=== PATIENT | male | born 1945 | race Caucasian/White ===

== ENCOUNTER 2016-04-25 14:59 | Inpatient (IN) | payer OTHER ==
[2016-04-25] VITALS (11 sets, daily range): BP systolic 112–153; BP diastolic 71–97; PULSE 87–167; RESP 18–24; TEMP 97.7–98.5; O2SAT 97–99
[~2016-04-25] VITALS: Ht 182.9 cm; Wt 113.8 kg
[~2016-04-25 14:59] MED LIST: ALBU0.086 INH; ALBU2.5I INH; ALBU6.7H INH; FOLI1 PO; LEVO750T33 PO; LISI5 PO; MVI PO; PRED-1 PO; SYMB160A INH; THIA100T PO; TIOT18I INH
--- NOTE | 2016-04-25 15:12 | PD ---
HPI . sob worsening over 4 days Chief Complaint: Respiratory Distress Time Seen by Provider: 15:12 Travel History International Travel<30 days: No Contact w/Intl Traveler<30days: No Traveled to known affect area: No History of Present Illness HPI 71 year-old male with history of hypertension, hepatitis C, reflux, alcoholism here with shortness of breath worsening over the past 4 days. Patient said he has had shortness of breath for over 30 years but has been worsening over the past 4 days. He says he does have some intermittent chills. Unfortunately he has not been to the [facility] clinic in about 1-2 years and has no medications for his nebulizer machine. He called a VAC today as he could barely catch his breath. Per fire rescue patient had atrial fibrillation (hr 170) and was given some Cardizem. He then demonstrated some a flutter. He was given a breathing treatment and solumedrol. Upon arrival he continued in a flutter with a lower rate. At time of examination patient admits to shortness of breath. He tells me he is uncomfortable but denies any pain. He denies any recent illness. He denies fever, nausea, vomiting, chest pain, diaphoresis or any abdominal pain. PFSH Past Medical History Arthritis: Yes Asthma: Yes Heart Rhythm Problems: No Cancer: Yes (TESTICLE, LUNG) High Cholesterol: Yes Chemotherapy: Yes Chest Pain: No Congestive Heart Failure: Yes COPD: Yes Cerebrovascular Accident: No Coronary Artery Disease: No Diabetes: Yes Diminished Hearing: No Endocrine: No Gastrointestinal Disorders: Yes GERD: No Genitourinary: Yes Hepatitis: Yes Hiatal Hernia: No Hypertension: Yes Immune Disorder: No Kidney Stones: No Musculoskeletal: Yes Neurologic: No Psychiatric: No Reproductive: No Respiratory: Yes (COPD) Migraines: Yes Renal Failure: No Seizures: No Sleep Apnea: No Thyroid Disease: No Ulcer: Yes Past Surgical History Abdominal Surgery: Yes (Part of liver removed) Cardiac Surgery: No Ear Surgery: No Endocrine Surgery: No Eye Surgery: No Genitourinary Surgery: Yes (R TESTICLE REMOVED/CA) Gynecologic Surgery: No Neurologic Surgery: No Oral Surgery: No Thoracic Surgery: Yes (RL Lobe removed) Other Surgery: Yes (HAND SX) Social History Alcohol Use: Yes (6-8 BURBON/DAY) Tobacco Use: Yes (1/2) Substance Use: No Allergies-Medications (Allergen,Severity, Reaction): Coded Allergies: No Known Allergies (Verified , 04/25/16) Reported Meds & Prescriptions Reported Meds & Active Scripts Active Prednisolone 5 Mg Tab 5 Mg PO DAILY TAKE SIX TABLETS BY MOUTH DAILY FOR THREE DAYS THEN TAKE FOUR TABLETS BY MOUTH DAILY FOR THREE DAYS THEN TAKE TWO TABLETS BY MOUTH DAILY FOR THREE DAYS. Folate 1 Mg Tab (Folic Acid) 1 Mg Tab 1 Mg PO DAILY Vitamin B1 (Thiamine HCl) 100 Mg Tab 100 Mg PO DAILY Levofloxacin 750 Mg Tab 750 Mg PO DAILY Proventil Ud 0.083% (2.5 Mg/3 Ml) (Albuterol Sulfate) 2.5 Mg/3 Ml Inha 2.5 Mg INH Q4 PRN Proventil Hfa (Albuterol Sulfate) 6.7 Gm Aero 1 Puff INH Q4 * SHAKE WELL BEFORE USE * Spiriva 18 Mcg Oral Inh (Tiotropium [place]) 18 Mcg Inhp 18 Mcg INH DAILY Theragran (Multivitamins) 1 Tab Tab 1 Tab PO DAILY 30 Days Prinivil 5 mg (Lisinopril) 5 Mg Tab 5 Mg PO DAILY 30 Days Symbicort (Budesonide/Formoterol Fumarate) 60 Puff Aero 2 Puff INH Q12 Resp: Albuterol 2.5 Mg/3 Ml Neb (Albuterol Sulfate) 2.5 Mg/3 Ml Nebu 2.5 Mg INH Q4 PRN 30 Days Review of Systems General / Constitutional: No: Fever Eyes: No: Visual changes HENT: No: Headaches Cardiovascular: No: Chest Pain or Discomfort Respiratory: Positive: Shortness of Breath Gastrointestinal: No: Abdominal Pain Genitourinary: No: Dysuria Musculoskeletal: No: Pain Skin: No Rash Neurologic: No: Weakness Psychiatric: No: Depression Endocrine: No: Polydipsia Hematologic/Lymphatic: No: Easy Bruising Physical Exam Narrative GENERAL: AAO x 3, no acute distress, Well-nourished, well-developed patient. SKIN: Warm and dry. No visible rashes or bruising. HEAD: Normocephalic and atraumatic. EYES: No scleral icterus. No injection or drainage. EOM intact, PERRLA ENT: No nasal drainage noted. Mucous membranes pink. Airway patent. NECK: Supple, trachea midline. No JVD. CARDIOVASCULAR: Regular rate and rhythm without murmurs, gallops, or rubs. RESPIRATORY: Breath sounds equally diminished bilaterally. Expiratory wheezes throughout. GASTROINTESTINAL: Abdomen soft, mild RUQ tenderness to palpation. EXTREMITIES: No cyanosis or edema. BACK: Nontender without obvious deformity. No CVA tenderness. PSYCH: AAO x 3, normal affect. Data Data Last Documented VS Vital Signs Date Time Temp Pulse Resp B/P Pulse Ox O2 Delivery O2 Flow Rate FiO2 04/25/16 15:34 99 Nasal Cannula 2.00 04/25/16 15:11 96 18 04/25/16 15:03 98.5 114/71 Orders Electrocardiogram (04/25/16 ) Basic Metabolic Panel (Bmp) (04/25/16 15:20) Ckmb (Isoenzyme) Profile (04/25/16 15:20) Complete Blood Count With Diff (04/25/16 15:20) Magnesium (Mg) (04/25/16 15:20) Prothrombin Time / Inr (Pt) (04/25/16 15:20) Act Partial Throm Time (Ptt) (04/25/16 15:20) Troponin I (04/25/16 15:20) Chest, Single Ap (04/25/16 15:20) Ecg Monitoring (04/25/16 15:20) Bilateral Bp Monitoring (04/25/16 15:20) Iv Access Insert/Monitor (04/25/16 15:20) Oximetry (04/25/16 15:20) Oxygen Administration (04/25/16 15:20) Sodium Chloride 0.9% Flush (Ns Flush) (04/25/16 15:30) Albuterol-Ipratropium Neb (Duoneb Neb) (04/25/16 15:30) Diltiazem Inj (Cardizem Inj) (04/25/16 16:00) Phenyleph/Ns 1000 Mcg/10ml Syr (Neosynep (04/25/16 16:00) Admit Order (Ed Use Only) (04/25/16 16:57) Labs Laboratory Tests Test 04/25/16 15:30 White Blood Count 11.9 TH/MM3 Red Blood Count 5.36 MIL/MM3 Hemoglobin 17.1 GM/DL Hematocrit 48.8 % Mean Corpuscular Volume 91.1 FL Mean Corpuscular Hemoglobin 31.9 PG Mean Corpuscular Hemoglobin 35.0 % Concent Red Cell Distribution Width 14.6 % Platelet Count 283 TH/MM3 Mean Platelet Volume 6.6 FL Neutrophils (%) (Auto) 64.6 % Lymphocytes (%) (Auto) 21.6 % Monocytes (%) (Auto) 11.4 % Eosinophils (%) (Auto) 1.2 % Basophils (%) (Auto) 1.2 % Neutrophils # (Auto) 7.7 TH/MM3 Lymphocytes # (Auto) 2.6 TH/MM3 Monocytes # (Auto) 1.4 TH/MM3 Eosinophils # (Auto) 0.1 TH/MM3 Basophils # (Auto) 0.1 TH/MM3 CBC Comment DIFF FINAL Differential Comment Prothrombin Time 13.8 SEC Prothromb Time International 1.2 RATIO Ratio Activated Partial 29.2 SEC Thromboplast Time Sodium Level 128 MEQ/L Potassium Level 3.1 MEQ/L Chloride Level 85 MEQ/L Carbon Dioxide Level 30.8 MEQ/L Anion Gap 12 MEQ/L Blood Urea Nitrogen 14 MG/DL Creatinine 1.19 MG/DL Estimat Glomerular Filtration 60 ML/MIN Rate Random Glucose 114 MG/DL Calcium Level 9.1 MG/DL Magnesium Level 2.0 MG/DL Total Creatine Kinase 86 U/L Troponin I 0.02 NG/ML MDM Medical Decision Making Medical Screen Exam Complete: Yes Emergency Medical Condition: Yes Medical Record Reviewed: Yes Differential Diagnosis new onset a fib, COPD exacerbation, PNA, Narrative Course 71 year-old male with history of hypertension, hepatitis C, reflux, alcoholism here with shortness of breath worsening over the past 4 days. Patient said he has had shortness of breath for over 30 years but has been worsening over the past 4 days. He says he does have some intermittent chills. Unfortunately he has not been to the [facility] clinic in about 1-2 years and has no medications for his nebulizer machine. He called a VAC today as he could barely catch his breath. Per fire rescue patient had atrial fibrillation (hr 170) and was given some Cardizem. He then demonstrated some a flutter. He was given a breathing treatment and solumedrol. Upon arrival he continued in a flutter with a lower rate. At time of examination patient admits to shortness of breath. He tells me he is uncomfortable but denies any pain. He denies any recent illness. He denies fever, nausea, vomiting, chest pain, diaphoresis or any abdominal pain. Patient seen and examined. Case discussed with Dr Beth. Labs, cxr, ekg ordered. Cardizem 20mg IV given fluid given as well 1653 patient stable Hyponatremic and low albumin: likely due to etoh abuse CXR with COPD changes Recommend admission due to afib/flutter and COPD exacerbation discussed with patient Patient verbalized understanding of instructions, questions were answered, and thanked me for their care. 1657: discussed personally with Dr. Delgado, admit to [facility] Diagnosis Primary Impression: New onset a-fib Additional Impression: COPD exacerbation Admitting Information Admitting Physician Requests: Admit Condition: Stable Ana Goodman Apr 25, 2016 15:12
[2016-04-25] MEDS ORDERED: SODIUM CHLORIDE 0.9% FLUSH 5 ML FLUSH IVF PRN (15:30)
[2016-04-25] MEDS: RESP: ALBUTEROL 2.5 MG/IPRATROPIUM 0.5 MG NEB (SCH) INH (15:30)
[2016-04-25 15:52] LABS: AUTOMATED NEUTROPHIL # 7.7 TH/MM3 (1.8-7.7); BASOPHIL # 0.1 TH/MM3 (0-0.2); BASOPHIL % 1.2 % (0.0-2.0); EOSINOPHIL # 0.1 TH/MM3 (0-0.4); EOSINOPHIL % 1.2 % (0.0-4.0); HEMATOCRIT 48.8 % (39.0-51.0); HEMO FLAGS DIFF FINAL; LYMPH % 21.6 % (9.0-44.0); LYMPHOCYTE # 2.6 TH/MM3 (1.0-4.8); MEAN CELL VOLUME 91.1 FL (80.0-100.0); MEAN CORPUSCULAR HEMOGLOBIN 31.9 PG (27.0-34.0); MONO % 11.4 % (0.0-8.0); NEUT % 64.6 % (16.0-70.0); PLATELET COUNT 283 TH/MM3 (150-450); RED BLOOD COUNT 5.36 MIL/MM3 (4.50-5.90); RED CELL DISTRIBUTION WIDTH 14.6 % (11.6-17.2); WHITE BLOOD COUNT 11.9 TH/MM3 (4.0-11.0)
[2016-04-25] MEDS ORDERED: DILTIAZEM HCL 25 MG/5 ML VIAL IV ONE (16:00)
[2016-04-25] MEDS ORDERED: PHENYLEPH/NS 1000 MCG/10 ML SYR IV ONE (16:00)
[2016-04-25 16:04] LABS: APTT (PATIENT) 29.2 SEC (24.3-30.1); INTERNATIONAL NORMALIZED RATIO 1.2 RATIO; PROTHROMBIN TIME - PATIENT 13.8 SEC (9.8-11.6)
--- NOTE | 2016-04-25 16:05 | RADRPT ---
EXAM DATE/TIME: 04/25/2016 15:37 [facility] COMPARISON: CHEST PA & LAT, June 12, 2014, 9:18. CHEST SINGLE AP, August 31, 2014, 16:43. INDICATIONS : Patient has been short of breath and it has progressively gotten worse over the last three days. MEDICAL HISTORY : None. SURGICAL HISTORY : None. ENCOUNTER: Initial ACUITY: 3 days PAIN SCORE: 0/10 LOCATION: chest FINDINGS: 2 supine frontal views of the abdomen demonstrate a normal-sized cardiac silhouette. There is elevati on the right hemidiaphragm. Lucency in the upper lung zones remains present. No effusion, consolidati on, or pneumothorax is visualized. The bones and soft tissues demonstrate no acute finding. CONCLUSION: Stable chest x-ray without an acute finding identified. Background lung changes are suggestive of obs tructive airways disease/emphysema. Arash Chong MD on April 25, 2016 at 16:02 Board Certified Radiologist. This report was verified electronically.
[2016-04-25 16:16] LABS: BICARBONATE 30.8 MEQ/L (21.0-32.0); POTASSIUM 3.1 MEQ/L (3.5-5.1)
[2016-04-25] MEDS ORDERED: SENNOSIDES 8.6 MG TAB PO PRN (17:15)
[2016-04-25] MEDS ORDERED: ONDANSETRON HCL 4 MG/2 ML VIAL IVP PRN (17:15)
[2016-04-25] MEDS ORDERED: DILTIAZEM INJ 125 MG in SODIUM CHLORIDE 0.9% INJ 100 ML IV SCH ×2 (17:15→21:30)
[2016-04-25] MEDS ORDERED: PROCHLORPERAZINE 25 MG SUPP PR PRN (17:15)
[2016-04-25] MEDS ORDERED: BISACODYL 10 MG SUPP PR PRN (17:15)
[2016-04-25] MEDS ORDERED: SODIUM CHLORIDE 0.9% FLUSH 5 ML FLUSH IV FLUSH PRN (17:30)
[2016-04-25] MEDS ORDERED: LORazepam 2 MG TAB PO PRN (17:30)
[2016-04-25] MEDS ORDERED: FLUMAZENIL 0.5 MG/5 ML VIAL IV PUSH PRN (17:30)
[2016-04-25] MEDS ORDERED: LORazepam 2 MG/ML VIAL IV PUSH PRN ×3 (17:30)
[2016-04-25] MEDS ORDERED: MAGNESIUM OXIDE 400 MG TAB PO ONE (17:45)
--- NOTE | 2016-04-25 18:45 | HHI.HP ---
[facility] Service [facility] Primary Care Physician [facility] Admission Diagnosis NEW ONSET AFIB/FLUTTER Diagnoses: Chief Complaint: shortness of breath Travel History International Travel<30 Days: No Contact w/Intl Traveler <30 Da: No Traveled to Known Affected Are: No History of Present Illness 71 year-old male with history of hypertension, hepatitis C, GERD, diabetes, alcoholism here with shortness of breath worsening over the past 4 days. Patient said he has had shortness of breath for over 30 years but has been worsening over the past 4 days. He says he does have some intermittent chills. Unfortunately he has not been to the [facility] clinic in about 1-2 years and has no medications for his nebulizer machine. He called a VAC today as he could barely catch his breath. Per fire rescue patient had atrial fibrillation (HR 170) and was given some Cardizem. He then was noted with Skinny ramirez. He was given a breathing treatment and solumedrol. Upon arrival he continued in a flutter with a lower rate. At time of examination patient admits to shortness of breath. Says he feels uncomfortable but denies any chest pain. Says he feels palpitations. He denies any recent illness. He denies fever, nausea, vomiting, chest pain, diaphoresis or any abdominal pain. No fever or chills. Says he has not taken meds for some time. 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 Has both surgery patient after [place]. Reported Medications Reported Meds & Active Scripts Active Prednisolone 5 Mg Tab 5 Mg PO DAILY TAKE SIX TABLETS BY MOUTH DAILY FOR THREE DAYS THEN TAKE FOUR TABLETS BY MOUTH DAILY FOR THREE DAYS THEN TAKE TWO TABLETS BY MOUTH DAILY FOR THREE DAYS. Folate 1 Mg Tab (Folic Acid) 1 Mg Tab 1 Mg PO DAILY Vitamin B1 (Thiamine HCl) 100 Mg Tab 100 Mg PO DAILY Levofloxacin 750 Mg Tab 750 Mg PO DAILY Proventil Ud 0.083% (2.5 Mg/3 Ml) (Albuterol Sulfate) 2.5 Mg/3 Ml Inha 2.5 Mg INH Q4 PRN Proventil Hfa (Albuterol Sulfate) 6.7 Gm Aero 1 Puff INH Q4 * SHAKE WELL BEFORE USE * Spiriva 18 Mcg Oral Inh (Tiotropium [place]) 18 Mcg Inhp 18 Mcg INH DAILY Theragran (Multivitamins) 1 Tab Tab 1 Tab PO DAILY 30 Days Prinivil 5 mg (Lisinopril) 5 Mg Tab 5 Mg PO DAILY 30 Days Symbicort (Budesonide/Formoterol Fumarate) 60 Puff Aero 2 Puff INH Q12 Resp: Albuterol 2.5 Mg/3 Ml Neb (Albuterol Sulfate) 2.5 Mg/3 Ml Nebu 2.5 Mg INH Q4 PRN 30 Days Allergies: Coded Allergies: No Known Allergies (Verified , 04/25/16) Family History Sister has COPD Mother diabetes, stomach cancer Father diabetes hypertension at the age of 86 Social History Started Smoking at the age of 9. In 1991 smokes be packs per day, down 8 years ago and currently is smoking 7 cigarettes a Drinking daily 5 beers daily Medicine illicit drug use Physical Exam Vital Signs Vital Signs Date Time Temp Pulse Resp B/P Pulse Ox O2 Delivery O2 Flow Rate FiO2 04/25/16 18:10 98 Nasal Cannula 2 04/25/16 18:10 98 Nasal Cannula 2 04/25/16 18:00 114 20 112/84 97 Nasal Cannula 2 04/25/16 17:00 90 18 112/76 98 Nasal Cannula 2 04/25/16 15:34 99 Nasal Cannula 2.00 04/25/16 15:11 96 18 96 Room Air 04/25/16 15:03 98.5 87 18 114/71 98 Physical Exam GENERAL: This is a well-nourished, well-developed patient, with some sob. SKIN: No rashes, ecchymoses or lesions. Cool and dry. HEAD: Atraumatic. Normocephalic. No temporal or scalp tenderness. EYES: Pupils equal round and reactive. Extraocular motions intact. No scleral icterus. No injection or drainage. ENT: Nose without bleeding, purulent drainage or septal hematoma. Throat without erythema, tonsillar hypertrophy or exudate. Uvula midline. Airway patent. NECK: Trachea midline. No JVD or lymphadenopathy. Supple, nontender, no meningeal signs. CARDIOVASCULAR: Irregularly irregular rhythm. No murmurs, gallops, or rubs. RESPIRATORY: Decreased breath sounds. Scattered wheezing. GASTROINTESTINAL: Abdomen soft, non-tender, nondistended. No hepato-splenomegaly , or palpable masses. No guarding. MUSCULOSKELETAL: Extremities without clubbing, cyanosis, or edema. No joint tenderness, effusion, or edema noted. No calf tenderness. Negative Homans sign bilaterally. NEUROLOGICAL: Awake and alert. Cranial nerves II through XII intact. Motor and sensory grossly within normal limits. Five out of 5 muscle strength in all muscle groups. Normal speech. Laboratory Laboratory Tests Test 04/25/16 15:30 White Blood Count 11.9 Red Blood Count 5.36 Hemoglobin 17.1 Hematocrit 48.8 Mean Corpuscular Volume 91.1 Mean Corpuscular Hemoglobin 31.9 Mean Corpuscular Hemoglobin 35.0 Concent Red Cell Distribution Width 14.6 Platelet Count 283 Mean Platelet Volume 6.6 Neutrophils (%) (Auto) 64.6 Lymphocytes (%) (Auto) 21.6 Monocytes (%) (Auto) 11.4 Eosinophils (%) (Auto) 1.2 Basophils (%) (Auto) 1.2 Neutrophils # (Auto) 7.7 Lymphocytes # (Auto) 2.6 Monocytes # (Auto) 1.4 Eosinophils # (Auto) 0.1 Basophils # (Auto) 0.1 CBC Comment DIFF FINAL Differential Comment Prothrombin Time 13.8 Prothromb Time International 1.2 Ratio Activated Partial 29.2 Thromboplast Time Sodium Level 128 Potassium Level 3.1 Chloride Level 85 Carbon Dioxide Level 30.8 Anion Gap 12 Blood Urea Nitrogen 14 Creatinine 1.19 Estimat Glomerular Filtration 60 Rate Random Glucose 114 Calcium Level 9.1 Magnesium Level 2.0 Total Creatine Kinase 86 Troponin I 0.02 Result Diagram: 04/25/16 1530 04/25/16 1530 Imaging Last Impressions Chest X-Ray 04/25/16 1520 Signed Impressions: Service Date/Time: April 15:37 - CONCLUSION: Stable chest x-ray without an acute finding identified. Background lung changes are suggestive of obstructive airways disease/emphysema. Arash Chong MD Assessment and Plan Assessment and Plan 71 year-old male with history of hypertension, hepatitis C, reflux, alcoholism here with shortness of breath worsening over the past 4 days. New onset Afib/Aflutter COPD exacerbation Acute respiratory failure requiring O2 by nasal canula ETOH use and tobacco use. Counselled. On IVF. Start CIWA protocol. 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 partial liver resection vs biopsy. On IVF. Monitor Na level closely for fast correction. Diabetes mellitis. says he is not taking meds and doesn't follow with doctors. Check A1c. Start ISS, accuchecks Hypokalemia. Replaced. Monitor and replace. In IVF with KCl additive, Also check mag. Keep K > 4 and Mag > 2 as patient with arrhythmia as above Received Cardizem 20mg IV in the ED and also en route another bolus of cardizem Place on cardizem drip. Turn cardizem drip off if HR < 90 sustained. Turn on cardizem drip if HR sustained > 110. Add cardizem PO Monitor on telemetry Start eliquis as patient with HTN, DM Check 2D ECHO Will also check A1c and lipid panel Solumedrol, duonebs scheduled and as need. Taper steroids and duonebs as tolerated. Monitor Monitor VS closely DVT ppx SCD/TEDs, apixaban Code Status full Discussed Condition With Patient, nurse, ED physician Physician Certification 2 Midnight Certification Type: Admission for Inpatient Services Order for Inpatient Services The services are ordered in accordance with Medicare regulations or non- Medicare payer requirements, as applicable. In the case of services not specified as inpatient-only, they are appropriately provided as inpatient services in accordance with the 2-midnight benchmark. Estimated LOS (days): 3 days is the estimated time the patient will need to remain in the hospital, assuming treatment plan goals are met and no additional complications. Post-Hospital Plan: Home Nuha Delgado MD Apr 25, 2016 18:45 Nuha Delgado MD Apr 25, 2016 18:45
--- NOTE | 2016-04-25 18:49 | PD ---
HPI Chief Complaint: Respiratory Distress Time Seen by Provider: 15:10 Travel History International Travel<30 days: No Contact w/Intl Traveler<30days: No Traveled to known affect area: No History of Present Illness HPI This is a 71-year-old male who has a history of alcoholism and COPD who presents to the emergency department with increasing shortness of breath over the past day, constant, severe associated with a productive cough with yellow sputum. With EMS he was found to have a rapid heart rate. He was given 20 mg of IV diltiazem, steroids and serial bronchodilator treatments. His breathing improved somewhat. Patient has been admitted to the hospital multiple times in the setting of COPD exacerbations. PFSH Past Medical History Arthritis: Yes Asthma: Yes Heart Rhythm Problems: No Cancer: Yes (TESTICLE, LUNG) High Cholesterol: Yes Chemotherapy: Yes Chest Pain: No Congestive Heart Failure: Yes COPD: Yes Cerebrovascular Accident: No Coronary Artery Disease: No Diabetes: Yes Patient Takes Glucophage: No Diminished Hearing: No Endocrine: No Gastrointestinal Disorders: Yes GERD: No Genitourinary: Yes Hepatitis: Yes Hiatal Hernia: No Hypertension: Yes Immune Disorder: No Kidney Stones: No Musculoskeletal: Yes Neurologic: No Psychiatric: No Reproductive: No Respiratory: Yes (COPD) Migraines: Yes Renal Failure: No Seizures: No Sleep Apnea: No Thyroid Disease: No Ulcer: Yes Past Surgical History Abdominal Surgery: Yes (Part of liver removed) Cardiac Surgery: No Ear Surgery: No Endocrine Surgery: No Eye Surgery: No Genitourinary Surgery: Yes (R TESTICLE REMOVED/CA) Gynecologic Surgery: No Neurologic Surgery: No Oral Surgery: No Thoracic Surgery: Yes (RL Lobe removed) Other Surgery: Yes (HAND SX) Social History Alcohol Use: Yes (6-8 BURBON/DAY) Tobacco Use: Yes (1/2) Substance Use: No Allergies-Medications (Allergen,Severity, Reaction): Coded Allergies: No Known Allergies (Verified , 04/25/16) Reported Meds & Prescriptions Reported Meds & Active Scripts Active Prednisolone 5 Mg Tab 5 Mg PO DAILY TAKE SIX TABLETS BY MOUTH DAILY FOR THREE DAYS THEN TAKE FOUR TABLETS BY MOUTH DAILY FOR THREE DAYS THEN TAKE TWO TABLETS BY MOUTH DAILY FOR THREE DAYS. Folate 1 Mg Tab (Folic Acid) 1 Mg Tab 1 Mg PO DAILY Vitamin B1 (Thiamine HCl) 100 Mg Tab 100 Mg PO DAILY Levofloxacin 750 Mg Tab 750 Mg PO DAILY Proventil Ud 0.083% (2.5 Mg/3 Ml) (Albuterol Sulfate) 2.5 Mg/3 Ml Inha 2.5 Mg INH Q4 PRN Proventil Hfa (Albuterol Sulfate) 6.7 Gm Aero 1 Puff INH Q4 * SHAKE WELL BEFORE USE * Spiriva 18 Mcg Oral Inh (Tiotropium [place]) 18 Mcg Inhp 18 Mcg INH DAILY Theragran (Multivitamins) 1 Tab Tab 1 Tab PO DAILY 30 Days Prinivil 5 mg (Lisinopril) 5 Mg Tab 5 Mg PO DAILY 30 Days Symbicort (Budesonide/Formoterol Fumarate) 60 Puff Aero 2 Puff INH Q12 Resp: Albuterol 2.5 Mg/3 Ml Neb (Albuterol Sulfate) 2.5 Mg/3 Ml Nebu 2.5 Mg INH Q4 PRN 30 Days Review of Systems ROS Limitations: Clinical Condition Physical Exam Narrative GENERAL: An well-appearing, moderate respiratory distress SKIN: Warm and dry. HEAD: Atraumatic. Normocephalic. EYES: Pupils equal and round. No injection or drainage. ENT: Moist mucous membranes NECK: Trachea midline. CARDIOVASCULAR: Tachycardic, irregularly irregular No murmur appreciated. RESPIRATORY: Diffuse wheezing bilaterally with a prolonged expiratory phase, some accessory muscle use GASTROINTESTINAL: Abdomen soft, non-tender, nondistended. MUSCULOSKELETAL: No obvious deformities. NEUROLOGICAL: Awake and alert. No obvious cranial nerve deficits. Moving all extremities. PSYCHIATRIC: Appropriate mood and affect; insight and judgment normal. Data Data Last Documented VS Vital Signs Date Time Temp Pulse Resp B/P Pulse Ox O2 Delivery O2 Flow Rate FiO2 04/25/16 15:34 99 Nasal Cannula 2.00 04/25/16 15:11 96 18 04/25/16 15:03 98.5 114/71 Orders Electrocardiogram (04/25/16 ) Basic Metabolic Panel (Bmp) (04/25/16 15:20) Ckmb (Isoenzyme) Profile (04/25/16 15:20) Complete Blood Count With Diff (04/25/16 15:20) Magnesium (Mg) (04/25/16 15:20) Prothrombin Time / Inr (Pt) (04/25/16 15:20) Act Partial Throm Time (Ptt) (04/25/16 15:20) Troponin I (04/25/16 15:20) Chest, Single Ap (04/25/16 15:20) Ecg Monitoring (04/25/16 15:20) Bilateral Bp Monitoring (04/25/16 15:20) Iv Access Insert/Monitor (04/25/16 15:20) Oximetry (04/25/16 15:20) Oxygen Administration (04/25/16 15:20) Sodium Chloride 0.9% Flush (Ns Flush) (04/25/16 15:30) Albuterol-Ipratropium Neb (Duoneb Neb) (04/25/16 15:30) Diltiazem Inj (Cardizem Inj) (04/25/16 16:00) Phenyleph/Ns 1000 Mcg/10ml Syr (Neosynep (04/25/16 16:00) Admit Order (Ed Use Only) (04/25/16 16:57) Labs Laboratory Tests Test 04/25/16 15:30 White Blood Count 11.9 TH/MM3 Red Blood Count 5.36 MIL/MM3 Hemoglobin 17.1 GM/DL Hematocrit 48.8 % Mean Corpuscular Volume 91.1 FL Mean Corpuscular Hemoglobin 31.9 PG Mean Corpuscular Hemoglobin 35.0 % Concent Red Cell Distribution Width 14.6 % Platelet Count 283 TH/MM3 Mean Platelet Volume 6.6 FL Neutrophils (%) (Auto) 64.6 % Lymphocytes (%) (Auto) 21.6 % Monocytes (%) (Auto) 11.4 % Eosinophils (%) (Auto) 1.2 % Basophils (%) (Auto) 1.2 % Neutrophils # (Auto) 7.7 TH/MM3 Lymphocytes # (Auto) 2.6 TH/MM3 Monocytes # (Auto) 1.4 TH/MM3 Eosinophils # (Auto) 0.1 TH/MM3 Basophils # (Auto) 0.1 TH/MM3 CBC Comment DIFF FINAL Differential Comment Prothrombin Time 13.8 SEC Prothromb Time International 1.2 RATIO Ratio Activated Partial 29.2 SEC Thromboplast Time Sodium Level 128 MEQ/L Potassium Level 3.1 MEQ/L Chloride Level 85 MEQ/L Carbon Dioxide Level 30.8 MEQ/L Anion Gap 12 MEQ/L Blood Urea Nitrogen 14 MG/DL Creatinine 1.19 MG/DL Estimat Glomerular Filtration 60 ML/MIN Rate Random Glucose 114 MG/DL Calcium Level 9.1 MG/DL Magnesium Level 2.0 MG/DL Total Creatine Kinase 86 U/L Troponin I 0.02 NG/ML MDM Medical Decision Making Medical Screen Exam Complete: Yes Emergency Medical Condition: Yes Interpretation(s) Afebrile, no tachycardia, normotensive Leukocytosis Hyponatremia Hypokalemia Troponin is 0.02 Chest x-ray: No acute findings Differential Diagnosis Atrial fibrillation with RVR, COPD exacerbation, pneumonia, myocardial infarction, congestive heart failure Narrative Course This is a 71-year-old male who presents to the emergency department with increasing difficulty breathing in the setting of a history of COPD and alcoholism. He was placed on a monitor and an IV was established. He had received 20 mg of IV diltiazem en route with EMS. He was given an additional 20 mg of IV diltiazem. His blood pressure was borderline so I ordered which does phenylephrine and kept at the bedside as we gave him his second bolus. It was not necessary and the patient's blood pressure maintained. He was given further bronchodilator treatments. He will be admitted for COPD exacerbation and new onset atrial fibrillation. Critical Care Narrative Aggregate critical care time was 50 minutes. Time to perform other separately billable procedures was not included in the critical care time. My time did not include minutes spent treating any other patients simultaneously or on activities that did not directly contribute to the patient's treatment. The services I provided to this patient were to treat and/or prevent clinically significant deterioration that could result in: Disability, I provided critical care services requiring my management, as noted below: Chart data review, documentation time, medication orders and management, vital sign assessments/reviewing monitor data, ordering and reviewing lab tests, ordering and interpreting/reviewing x-rays and diagnostic studies, care of the patient and discussion of the patient with the admitting physicians. Diagnosis Primary Impression: New onset a-fib Additional Impression: COPD exacerbation Admitting Information Admitting Physician Requests: Admit Condition: Stable Ines Beth MD Apr 25, 2016 18:49
[2016-04-25] MEDS: APIXABAN 5 MG TABLET PO SCH (20:43)
[2016-04-25] MEDS: DILTIAZEM HCL 30 MG TAB PO SCH (20:43)
[2016-04-25] MEDS: LORazepam 2 MG/ML VIAL IV PUSH PRN (20:44)
[2016-04-25] MEDS: SODIUM CHLORIDE 0.9% FLUSH 5 ML FLUSH IV FLUSH SCH (20:47)
[2016-04-25] MEDS: NS + KCL 20 MEQ INJ 1,000 ML IV SCH (20:50)
[2016-04-25] MEDS: methylPREDNISolone SOD SUCC 40 MG/1 ML VIAL IV PUSH SCH (20:54)
[2016-04-25] MEDS: RESP: ALBUTEROL 2.5 MG/IPRATROPIUM 0.5 MG NEB (SCH) NEB (21:25)
[2016-04-25] MEDS ORDERED: DILTIAZEM HCL 25 MG/5 ML VIAL IVP ONE (21:30)
[2016-04-25] MEDS: RESP: ALBUTEROL 2.5 MG/IPRATROPIUM 0.5 MG NEB (PRN) NEB (23:20)
[2016-04-26] VITALS (26 sets, daily range): BP systolic 121–145; BP diastolic 74–93; PULSE 74–121; RESP 20–22; TEMP 97.6–98.5; O2SAT 97–99
[2016-04-26] MEDS: methylPREDNISolone SOD SUCC 40 MG/1 ML VIAL IV PUSH SCH ×4 (01:06→20:47)
[2016-04-26 03:43] LABS: AUTOMATED NEUTROPHIL # 8.4 TH/MM3 (1.8-7.7); BASOPHIL % 0.2 % (0.0-2.0); HEMATOCRIT 47.5 % (39.0-51.0); HEMO FLAGS DIFF FINAL; LYMPH % 5.2 % (9.0-44.0); LYMPHOCYTE # 0.5 TH/MM3 (1.0-4.8); MEAN CELL VOLUME 91.6 FL (80.0-100.0); MEAN CORPUSCULAR HEMOGLOBIN 32.2 PG (27.0-34.0); MEAN CORPUSCULAR HGB CONC 35.1 % (32.0-36.0); MONO % 0.9 % (0.0-8.0); NEUT % 93.7 % (16.0-70.0); PLATELET COUNT 255 TH/MM3 (150-450); RED BLOOD COUNT 5.18 MIL/MM3 (4.50-5.90); RED CELL DISTRIBUTION WIDTH 14.6 % (11.6-17.2)
[2016-04-26 04:15] LABS: ANION GAP 12 MEQ/L (5-15)
[2016-04-26 04:23] LABS: BICARBONATE 28.7 MEQ/L (21.0-32.0); BLOOD UREA NITROGEN 21 MG/DL (7-18); CHLORIDE 89 MEQ/L (98-107); GLOMERULAR FILTRATION RATE 48 ML/MIN (>89); SODIUM (NA) 130 MEQ/L (136-145)
[2016-04-26 04:29] LABS: POTASSIUM 2.9 MEQ/L (3.5-5.1)
[2016-04-26] MEDS ORDERED: POTASSIUM CL 40 MEQ/30 ML LIQ UDC PO ONE (04:45)
[2016-04-26] MEDS: POTASSIUM CHLOR 20 MEQ PREMIX 100 ML IV SCH ×2 (05:08→07:17)
[2016-04-26] MEDS: NS + KCL 20 MEQ INJ 1,000 ML IV SCH ×2 (05:12→16:08)
[2016-04-26] MEDS: RESP: ALBUTEROL 2.5 MG/IPRATROPIUM 0.5 MG NEB (SCH) NEB ×3 (07:49→19:45)
[2016-04-26] MEDS ORDERED: POTASSIUM CHLORIDE 20 MEQ CONTROLLED RELEASE TAB PO ONE (09:30)
[2016-04-26] MEDS: MULTIVITAMINS/MINERALS THERAPEUTIC TAB PO SCH (10:02)
[2016-04-26] MEDS: APIXABAN 5 MG TABLET PO SCH ×2 (10:03→20:47)
[2016-04-26] MEDS: THIAMINE HCL 100 MG TAB PO SCH (10:03)
[2016-04-26] MEDS: FOLIC ACID 1 MG TAB PO SCH (10:03)
[2016-04-26] MEDS: DILTIAZEM HCL 30 MG TAB PO SCH ×2 (10:03→13:00)
[2016-04-26] MEDS: PANTOPRAZOLE SOD 40 MG DELAYED RELEASE TAB PO SCH (10:03)
[2016-04-26] MEDS: MAGNESIUM OXIDE 400 MG TAB PO SCH (10:03)
[2016-04-26] MEDS: SODIUM CHLORIDE 0.9% FLUSH 5 ML FLUSH IV FLUSH SCH ×2 (10:04→20:48)
--- NOTE | 2016-04-26 10:12 | HHI.PR ---
Subjective Remarks Says he is still with sob and some wheezing , however feels improved. Still with palpitations. No fever or chills. No n/v/d/c. K very low at 2.9 , replaced. Patient says he is not eating much . Objective Vitals Vital Signs Date Time Temp Pulse Resp B/P Pulse Ox O2 Delivery O2 Flow Rate FiO2 04/26/16 07:52 99 Nasal Cannula 2.00 04/26/16 06:00 79 04/26/16 05:00 77 04/26/16 04:00 81 04/26/16 03:00 121 04/26/16 03:00 98.3 80 21 145/93 99 04/26/16 02:00 81 04/26/16 01:00 82 04/26/16 00:00 106 04/25/16 23:20 98 Nasal Cannula 2.00 04/25/16 23:00 97.7 112 23 153/85 99 04/25/16 23:00 121 04/25/16 22:00 160 04/25/16 21:00 166 04/25/16 20:00 154 04/25/16 19:00 136 04/25/16 19:00 97.9 167 24 139/97 98 04/25/16 18:10 98 Nasal Cannula 2 04/25/16 18:10 98 Nasal Cannula 2 04/25/16 18:00 114 20 112/84 97 Nasal Cannula 2 04/25/16 17:00 90 18 112/76 98 Nasal Cannula 2 04/25/16 15:34 99 Nasal Cannula 2.00 04/25/16 15:11 96 18 96 Room Air 04/25/16 15:03 98.5 87 18 114/71 98 I/O 04/25/16 04/25/16 04/25/16 04/26/16 04/26/16 04/26/16 07:00 15:00 23:00 07:00 15:00 23:00 Intake Total 1011 ml Output Total 275 ml Balance 736 ml Intake Oral 720 ml IV Total 291 ml Output Urine Total 275 ml Result Diagram: 04/26/16 0329 04/26/16 0329 Imaging Last Impressions Chest X-Ray 04/25/16 1520 Signed Impressions: Service Date/Time: April 15:37 - CONCLUSION: Stable chest x-ray without an acute finding identified. Background lung changes are suggestive of obstructive airways disease/emphysema. Arash Chong MD Objective Remarks GENERAL: This is a well-nourished, well-developed patient, with some sob. SKIN: No rashes, ecchymoses or lesions. Cool and dry. HEAD: Atraumatic. Normocephalic. No temporal or scalp tenderness. EYES: Pupils equal round and reactive. Extraocular motions intact. No scleral icterus. No injection or drainage. ENT: Nose without bleeding, purulent drainage or septal hematoma. Throat without erythema, tonsillar hypertrophy or exudate. Uvula midline. Airway patent. NECK: Trachea midline. No JVD or lymphadenopathy. Supple, nontender, no meningeal signs. CARDIOVASCULAR: Irregularly irregular rhythm. No murmurs, gallops, or rubs. RESPIRATORY: Decreased breath sounds. Scattered wheezing. GASTROINTESTINAL: Abdomen soft, non-tender, nondistended. No hepato-splenomegaly , or palpable masses. No guarding. MUSCULOSKELETAL: Extremities without clubbing, cyanosis, or edema. No joint tenderness, effusion, or edema noted. No calf tenderness. Negative Homans sign bilaterally. NEUROLOGICAL: Awake and alert. Cranial nerves II through XII intact. Motor and sensory grossly within normal limits. Five out of 5 muscle strength in all muscle groups. Normal speech. A/P Assessment and Plan 71 year-old male with history of hypertension, hepatitis C, reflux, alcoholism here with shortness of breath worsening over the past 4 days. New onset Afib/Aflutter COPD exacerbation Acute respiratory failure requiring O2 by nasal canula ETOH use and tobacco use. Counselled. On IVF. Start CIWA protocol. 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 partial liver resection vs biopsy. On IVF. Monitor Na level closely for fast correction. Diabetes mellitis. says he is not taking meds and doesn't follow with doctors. Check A1c. Start ISS, accuchecks Hypokalemia. Replaced. Monitor and replace. In IVF with KCl additive, Also check mag. Keep K > 4 and Mag > 2 as patient with arrhythmia as above. Will add KCL additive to IVF. joe extra K as noted K level of 2.9 ( 04/26) JAROCHO. Will check UA and Kidney US likely cardio- renal syndrom. Monitor kidney function. Received Cardizem 20mg IV in the ED and also en route to the hospital another bolus of cardizem Place on cardizem drip. Turn cardizem drip off if HR < 90 sustained. Turn on cardizem drip if HR sustained > 110. Add cardizem PO . Wean off cardizem drip. Monitor on telemetry Start eliquis as patient with HTN, DM. Check FOBT 2D ECHO pending Check A1c and lipid panel Solumedrol, duonebs scheduled and as need. Taper steroids and duonebs as tolerated. Monitor Monitor VS closely DVT ppx SCD/TEDs, apixaban Code Status full Discussed Condition With Patient, nurse Nuha Delgado MD Apr 26, 2016 10:12
--- NOTE | 2016-04-26 13:26 | RADRPT ---
EXAM DATE/TIME: 04/26/2016 11:04 [facility] COMPARISON: No previous studies available for comparison. INDICATIONS : Increased BUN and creatinine. MEDICAL HISTORY : Congestive heart failure. Hypertension. Arthritis. Syncope. Neck stiffness. COPD. Emphysema. Asthma. Testicular cancer. Lung cancer. Diabetes. Chemotherapy. Hepatitis. SURGICAL HISTORY : Partial liver removal. Right testicle removed. Right hand surgery. Left lung lobectomy. ENCOUNTER: Initial ACUITY: 1 day PAIN SCORE: 0/10 LOCATION: Bilateral flank MEASUREMENTS: RIGHT KIDNEY: 11.2 x 5.6 x 6.5 cm LEFT KIDNEY: 10.3 x 5.5 x 5.1 cm FINDINGS: RIGHT KIDNEY: There is some increased echogenicity of the renal parenchyma. There is some thinning of the renal par enchyma. No hydronephrosis. LEFT KIDNEY: There is increased echogenicity of the renal parenchyma. There is some thinning of the renal parenchy ma. No hydronephrosis. BLADDER: Within normal limits given the degree of distension. CONCLUSION: 1. Increased echogenicity suggestive of chronic medical renal disease. 2. No hydronephrosis. Taco Valdez MD on April 26, 2016 at 13:24 Board Certified Radiologist. This report was verified electronically.
--- NOTE | 2016-04-26 13:52 | MB ---
cc: ETHAN BRADLEY M.D. DATE OF CONSULTATION: 04/26/2016. REASON FOR CONSULTATION: Atrial flutter. HISTORY OF PRESENT ILLNESS: The patient is a 71-year-old white male with a history of hepatitis C, testicular cancer, COPD, hypertension, diabetes who presented to the hospital with increasing shortness of breath. The patient states for the past few days he has had increasing dyspnea with very minimal exertion. In the emergency department, he was found to be in an atrial fibrillation/flutter with a rapid ventricular response and started on intravenous Cardizem. Chronically, he has had pinpoint left-sided chest pains described as "burning" often lasting in a constant fashion throughout the day. The chest pains have no relationship to exertion and are not pleuritic. Since coming into hospital, his dyspnea has improved. He reports occasional paroxysmal nocturnal dyspnea and dependent ankle edema. For the past few months he has noted occasional fluttering palpitations which last a few minutes. He denies dizziness, syncope, near-syncope, fevers. PAST MEDICAL HISTORY: 1. Hepatitis C. 2. 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 3. COPD. 4. Hypertension 5. Diet-controlled diabetes. CARDIAC MEDICATIONS AT HOME: Prinivil 5 mg daily. ALLERGIES: NO KNOWN DRUG ALLERGIES. FAMILY HISTORY: Noncontributory. SOCIAL HISTORY: The patient smokes about half a pack of cigarettes per day. He drinks alcohol fairly heavily on a daily basis. REVIEW OF SYSTEMS: Review of systems as in the history of present illness otherwise negative or noncontributory. He also denies headache, visual changes, unilateral weakness or numbness, abdominal pain, dyspepsia. For the past few months he has noted black stools. PHYSICAL EXAMINATION: VITAL SIGNS: On physical examination his blood pressure IS 138/84 with a pulse of 80, respirations 22. GENERAL: In general he is a well-developed, well-nourished white male in no acute distress. HEAD, EYES, EARS, NOSE, THROAT: On HEENT examination, jugular venous pressure is hard to assess. Carotid pulses are 2+ bilaterally and without bruits. CHEST: Examination of the chest reveals diffuse mild expiratory wheezes. CARDIAC: On cardiac examination, he has a regular rhythm and rate without S3, S4 or murmur. ABDOMEN: On abdominal examination, he has a soft, nontender abdomen. Bowel sounds are present. There is no definite hepatosplenomegaly. EXTREMITIES: Examination of extremities reveals no clubbing, cyanosis or edema. EKGS: EKG shows atrial flutter with variable AV conduction, nonspecific T-wave abnormalities. LABORATORY DATA: Laboratory data includes WBC 9.0, hemoglobin 16.7, platelets 255, potassium 2.9, BUN 21, creatinine 1.46. Troponin less than 0.02, CK 86. INR 1.2. IMAGING STUDIES: Chest x-ray shows no acute disease. IMPRESSION: Newly diagnosed atrial flutter in this 71-year-old white male with a history of hypertension, diabetes, COPD, testicular cancer, hepatitis C, admitted with COPD exacerbation. At this time, monitoring suggests he is back in sinus rhythm or an ectopic atrial rhythm. Repeat EKG is pending. Overall there is no definite evidence for acute coronary syndrome. Cardiac enzymes are negative for myocardial infarction. His chronic chest pains are extremely atypical for myocardial ischemia. Echocardiogram is pending. There is no definite evidence for congestive heart failure. There is also clinically no evidence for pulmonary embolism. The etiology of the atrial dysrhythmia may be his history of hypertension. RECOMMENDATIONS: 1. Agree with the Eliquis although would check his stools for occult blood as he does report black stools for a few months. 2. Will try to stop the intravenous Cardizem and continue oral administration. 3. Await his 2-D echocardiogram. MD SHELDON Edwards/KIRILL /1:16 PM /1:43 PM GABRIEL
[2016-04-26] MEDS: DILTIAZEM-CD 240 MG CAP ER PO SCH (14:14)
[2016-04-26] MEDS: ACETAMINOPHEN 325 MG TAB PO PRN (16:28)
--- NOTE | 2016-04-26 16:38 | EKG ---
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 DOCTOR: Linda Noble Interpretating Date/Time 04/26/2016 16:36:31
[2016-04-26] MEDS: RESP: ALBUTEROL 2.5 MG/IPRATROPIUM 0.5 MG NEB (PRN) NEB (16:41)
--- NOTE | 2016-04-26 19:01 | EC ---
Study Study Date:04/26/2016 STUDY CONCLUSIONS SUMMARY LEFT VENTRICLE: The cavity size was normal. Wall thickness was normal. Systolic function was normal. The estimated ejection fraction was in the range of 50% to 55%. Wall motion was normal; there were no regional wall motion abnormalities. If LV function is below 40, please consider prescribing an ACEI or ARB or document rationale for non-use. PROCEDURE DATA STUDY STATUS: Elective. Procedure: Transthoracic echocardiography. Image quality was poor. Scanning was performed from the parasternal, apical, and subcostal acoustic windows. Study completion: The patient tolerated the procedure well. Transthoracic echocardiography. M-mode, complete 2D, complete spectral Doppler, and color Doppler. Patient status: Inpatient. CARDIAC ANATOMY LEFT VENTRICLE: The cavity size was normal. Wall thickness was normal. Systolic function was normal. The estimated ejection fraction was in the range of 50% to 55%. Wall motion was normal; there were no regional wall motion abnormalities. AORTIC VALVE: Trileaflet; normal thickness leaflets. Doppler: Transvalvular velocity was within the normal range. There was no stenosis. No regurgitation. AORTA: Aortic root: The aortic root was normal in size. MITRAL VALVE: Structurally normal valve. Doppler: Transvalvular velocity was within the normal range. There was no evidence for stenosis. No regurgitation. LEFT ATRIUM: The atrium was normal in size. RIGHT VENTRICLE: The cavity size was normal. Wall thickness was normal. PULMONIC VALVE: Doppler: Transvalvular velocity was within the normal range. There was no evidence for stenosis. No regurgitation. TRICUSPID VALVE: Structurally normal valve. Doppler: Transvalvular velocity was within the normal range. No regurgitation. PULMONARY ARTERY: The main pulmonary artery was normal-sized. Systolic pressure was within the normal range. RIGHT ATRIUM: The atrium was normal in size. PERICARDIUM: There was no pericardial effusion. SYSTEMIC VEINS: Inferior vena cava: The vessel was normal in size. Prepared and signed by Sudheer Menendez [id number]
[2016-04-26] MEDS: LORazepam 1 MG TAB PO PRN (20:55)
[2016-04-26] MEDS: guaiFENesin/DEXTROMETHORPHAN 200 MG/20 MG/10 ML CUP PO PRN (23:58)
[2016-04-27] VITALS (29 sets, daily range): BP systolic 117–159; BP diastolic 68–86; PULSE 69–102; RESP 18–22; TEMP 96–98.3; O2SAT 93–100
[2016-04-27] MEDS: LORazepam 2 MG/ML VIAL IV PUSH PRN (01:50)
[2016-04-27 04:55] LABS: BLOOD, URINE NEG (NEG); COMMENT (UR) CULT NOT INDICATED; CULTURE IF INDICATED CULT NOT INDICATED; GLUCOSE,URINE NEG (NEG); KETONE, URINE NEG (NEG); MUCUS URINE FEW /lpf (OCC); NITRITE,URINE NEG (NEG); PH, URINE 5.5 (5.0-8.5); URINE COLOR LIGHT-YELLOW (YELLW/STRAW)
[2016-04-27 05:17] LABS: AUTOMATED NEUTROPHIL # 19.6 TH/MM3 (1.8-7.7); BASOPHIL % 0.2 % (0.0-2.0); HEMATOCRIT 40.5 % (39.0-51.0); HEMO FLAGS DIFF FINAL; LYMPH % 2.6 % (9.0-44.0); LYMPHOCYTE # 0.5 TH/MM3 (1.0-4.8); MEAN CELL VOLUME 94.3 FL (80.0-100.0); MEAN CORPUSCULAR HEMOGLOBIN 31.8 PG (27.0-34.0); MEAN CORPUSCULAR HGB CONC 33.8 % (32.0-36.0); MONO % 3.1 % (0.0-8.0); NEUT % 94.1 % (16.0-70.0); PLATELET COUNT 219 TH/MM3 (150-450); RED CELL DISTRIBUTION WIDTH 14.8 % (11.6-17.2); WHITE BLOOD COUNT 20.9 TH/MM3 (4.0-11.0)
[2016-04-27 05:42] LABS: BICARBONATE 30.3 MEQ/L (21.0-32.0); MAGNESIUM 2.2 MG/DL (1.5-2.5); POTASSIUM 4.1 MEQ/L (3.5-5.1)
[2016-04-27] MEDS: methylPREDNISolone SOD SUCC 40 MG/1 ML VIAL IV PUSH SCH ×3 (06:00→21:53)
[2016-04-27] MEDS: NS + KCL 20 MEQ INJ 1,000 ML IV SCH ×3 (06:09→22:37)
[2016-04-27] MEDS ORDERED: APIX5TAB PO (07:34)
[2016-04-27] MEDS ORDERED: PRED10PA PO (07:34)
[2016-04-27] MEDS ORDERED: CARD240C6 PO (07:34)
--- NOTE | 2016-04-27 07:34 | HHI.DS ---
Discharge Summary Admission Date Apr 25, 2016 at 16:59 Discharge Date: May 28, 2016 Admitting Diagnosis NEW ONSET AFIB/FLUTTER (1) New onset a-fib ICD Code: I48.91 Diagnosis: Principal (2) Paroxysmal atrial flutter ICD Code: I48.92 Diagnosis: Principal (3) COPD with exacerbation ICD Code: J44.1 Diagnosis: Principal (4) Alcohol abuse ICD Code: F10.10 Diagnosis: Principal (5) Respiratory insufficiency ICD Code: R06.89 Diagnosis: Principal (6) Tobacco abuse ICD Code: Z72.0 Diagnosis: Secondary (7) Hypertension ICD Code: I10 Diagnosis: Secondary Procedures none Brief History - From Admission 71 year-old male with history of hypertension, hepatitis C, GERD, diabetes, alcoholism here with shortness of breath worsening over the past 4 days. Patient said he has had shortness of breath for over 30 years but has been worsening over the past 4 days. He says he does have some intermittent chills. Unfortunately he has not been to the [place] [facility] in about 1-2 years and has no medications for his nebulizer machine. He called a VAC today as he could barely catch his breath. Per fire rescue patient had atrial fibrillation (HR 170) and was given some Cardizem. He then was noted with A. flutter. He was given a breathing treatment and solumedrol. Upon arrival he continued in a flutter with a lower rate. At time of examination patient admits to shortness of breath. Says he feels uncomfortable but denies any chest pain. Says he feels palpitations. He denies any recent illness. He denies fever, nausea, vomiting, chest pain, diaphoresis or any abdominal pain. No fever or chills. Says he has not taken meds for some time. CBC/BMP: 04/27/16 0402 04/27/16 0402 Significant Findings Laboratory Tests Test 04/25/16 04/25/16 04/26/16 04/27/16 15:30 21:35 03:29 04:02 White Blood Count 11.9 TH/MM3 20.9 TH/MM3 (4.0-11.0) (4.0-11.0) Hemoglobin 17.1 GM/DL (13.0-17.0) Mean Platelet Volume 6.6 FL 6.6 FL 6.7 FL (7.0-11.0) (7.0-11.0) (7.0-11.0) Monocytes (%) (Auto) 11.4 % (0.0-8.0) Monocytes # (Auto) 1.4 TH/MM3 (0-0.9) Prothrombin Time 13.8 SEC (9.8-11.6) Sodium Level 128 MEQ/L 130 MEQ/L 134 MEQ/L (136-145) (136-145) (136-145) Potassium Level 3.1 MEQ/L 2.9 MEQ/L (3.5-5.1) (3.5-5.1) Chloride Level 85 MEQ/L 89 MEQ/L 95 MEQ/L (98-107) (98-107) (98-107) Estimat Glomerular Filtration 60 ML/MIN (>89) 48 ML/MIN (>89) 71 ML/MIN (>89) Rate Random Glucose 114 MG/DL 213 MG/DL 180 MG/DL (74-106) (74-106) (74-106) Troponin I LESS THAN 0.02 LESS THAN 0.02 NG/ML NG/ML (0.02-0.05) (0.02-0.05) Neutrophils (%) (Auto) 93.7 % 94.1 % (16.0-70.0) (16.0-70.0) Lymphocytes (%) (Auto) 5.2 % 2.6 % (9.0-44.0) (9.0-44.0) Neutrophils # (Auto) 8.4 TH/MM3 19.6 TH/MM3 (1.8-7.7) (1.8-7.7) Lymphocytes # (Auto) 0.5 TH/MM3 0.5 TH/MM3 (1.0-4.8) (1.0-4.8) Blood Urea Nitrogen 21 MG/DL (7-18) 23 MG/DL (7-18) Creatinine 1.46 MG/DL (0.60-1.30) B-Type Natriuretic Peptide 339 PG/ML (0-100) Red Blood Count 4.30 MIL/MM3 (4.50-5.90) Test 04/27/16 04:18 Urine Mucus FEW /lpf (OCC) Imaging Last Impressions Renal Ultrasound 04/26/16 0000 Signed Impressions: Service Date/Time: Tuesday, April 26, 2016 11:04 - CONCLUSION: 1. Increased echogenicity suggestive of chronic medical renal disease. 2. No hydronephrosis. Taco Valdez MD Chest X-Ray 04/25/16 1520 Signed Impressions: Service Date/Time: April 15:37 - CONCLUSION: Stable chest x-ray without an acute finding identified. Background lung changes are suggestive of obstructive airways disease/emphysema. Arash Chong MD PE at Discharge GENERAL: This is a well-nourished, well-developed patient, with some sob. SKIN: No rashes, ecchymoses or lesions. Cool and dry. HEAD: Atraumatic. Normocephalic. No temporal or scalp tenderness. EYES: Pupils equal round and reactive. Extraocular motions intact. No scleral icterus. No injection or drainage. ENT: Nose without bleeding, purulent drainage or septal hematoma. Throat without erythema, tonsillar hypertrophy or exudate. Uvula midline. Airway patent. NECK: Trachea midline. No JVD or lymphadenopathy. Supple, nontender, no meningeal signs. CARDIOVASCULAR: Irregularly irregular rhythm. No murmurs, gallops, or rubs. RESPIRATORY: Decreased breath sounds. Scattered wheezing. GASTROINTESTINAL: Abdomen soft, non-tender, nondistended. No hepato-splenomegaly , or palpable masses. No guarding. MUSCULOSKELETAL: Extremities without clubbing, cyanosis, or edema. No joint tenderness, effusion, or edema noted. No calf tenderness. Negative Homans sign bilaterally. NEUROLOGICAL: Awake and alert. Cranial nerves II through XII intact. Motor and sensory grossly within normal limits. Five out of 5 muscle strength in all muscle groups. Normal speech. Hospital Course 71 year-old male with history of hypertension, hepatitis C, reflux, alcoholism here with shortness of breath worsening over the past 4 days. New onset Afib/Aflutter Received Cardizem 20mg IV in the ED and also en route to the hospital another bolus of cardizem Place on cardizem drip. Turn cardizem drip off if HR < 90 sustained. Turn on cardizem drip if HR sustained > 110. Add cardizem PO . Wean off cardizem drip. Curently on cardizem PO continue at DC Monitor on telemetry Start eliquis as patient with HTN, DM. Check FOBT 2D ECHO reviewed normal EF A1c at 6 . Lipid panel fairly good. COPD exacerbation Solumedrol, duonebs scheduled and as need. Taper steroids and duonebs as tolerated. Monitor Monitor VS closely Add mucomist, IS, acapella Acute respiratory failure requiring O2 by nasal canula ETOH use. Counselled. On IVF. Start CIWA protocol. Tobacco use. Counselled. Nicotine patch. 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 partial liver resection vs biopsy. On IVF. Monitor Na level closely for fast correction. Diabetes mellitis, diet controlled. says he is not taking meds and doesn't follow with doctors. A1c at 6. Start ISS, accuchecks. Hypokalemia. Replaced. Monitor and replace. In IVF with KCl additive, Also check mag. Keep K > 4 and Mag > 2 as patient with arrhythmia as above. Will add KCL additive to IVF. joe extra K as noted K level of 2.9 ( 04/26) Replaced. Continue to monitor and replace as needed. JAROCHO. Will check UA and Kidney US likely cardio- renal syndrom. Monitor kidney function. Kidney US reviewed changes consistent with CKD. Renal indices improved. Constipation. Laxatives/stool softeners. DVT ppx SCD/TEDs, apixaban Code Status full Discussed Condition With Patient, nurse PT recommends SNF. DC to SNF in stable condition. Patient improved. To follow up as OP with PCP and consultants. Pt Condition on Discharge: Stable Discharge Disposition: Discharge to SNF Discharge Time: > 30 minutes Discharge Instructions DIET: Follow Instructions for: Heart Healthy Diet, Diabetic Diet Activities you can perform: Regular-No Restrictions Follow up Referrals: Cardiology - 2 Weeks with Cam Payne DO PCP Follow-up - 3-5 Days Pulmonology - 1 Week New Medications: Cefuroxime (Ceftin) 250 Mg Tab 250 MG PO BID Infection #14 Ref 0 TAB Dextromethorphan-Guaifenesin (Mucinex DM) 30-600 Mg Tab 1 TAB PO BID PRN CHEST CONGESTION AND/OR COUGH #10 Ref 0 TAB Lactobacillus Acidophilus (Lactinex) 1 Chew 1 TAB CHEW DAILY Nutritional Supplement #15 Ref 0 TAB Lorazepam (Lorazepam) 0.5 Mg Tab 0.5 MG PO BID PRN ANXIETY #10 Ref 0 TAB Nicotine Patch (Nicotine Patch) 21 Mg/24 Hr Patch 21 MG T-DERMAL DAILY Smoking Cessation #30 Ref 0 PATCH Prednisone (21) 10 mg tab Dose Pack (Prednisone (21) 10 mg tab Dose Pack) 10 Mg Pack 10 MG PO DIRECTED Inflammation #1 Ref 0 DSPK Apixaban (Eliquis) 5 Mg Tab 5 MG PO BID Blood Clot Prevention #60 TAB Diltiazem CD 24 HR (Cardizem CD 24 HR) 240 Mg Caper 240 MG PO DAILY a fib #30 CAP Continued Medications: Albuterol Sulfate (Resp: Albuterol 2.5 Mg/3 Ml Neb) 2.5 Mg/3 Ml Nebu 2.5 MG INH Q4 PRN SHORTNESS OF BREATH Days 30 Ref 0 ML Albuterol Sulfate (Proventil Hfa) 6.7 Gm Aero 1 PUFF INH Q4 * SHAKE WELL BEFORE USE * SHORTNESS OF BREATH #1 Ref 0 BOX Albuterol Sulfate (Proventil Ud 0.083% (2.5 Mg/3 Ml)) 2.5 Mg/3 Ml Inha 2.5 MG INH Q4 PRN SOB/WHEEZING #25 Ref 1 BOX Budesonide-Formoterol Fumarate (Symbicort) 60 Puff Aero 2 PUFF INH Q12 copd #1 Ref 0 CONTAINER Folic Acid (Folate 1 Mg Tab) 1 Mg Tab 1 MG PO DAILY alcohol #30 Ref 0 TAB Lisinopril 5 mg (Prinivil 5 mg) 5 Mg Tab 5 MG PO DAILY high blood pressure Days 30 Ref 0 TAB Multivitamins (Theragran) 1 Tab Tab 1 TAB PO DAILY vitamin supplement Days 30 Ref 0 TAB Prednisolone (Prednisolone) 5 Mg Tab 5 MG PO DAILY TAKE SIX TABLETS BY MOUTH DAILY FOR THREE DAYS THEN TAKE FOUR TABLETS BY MOUTH DAILY FOR THREE DAYS THEN TAKE TWO TABLETS BY MOUTH DAILY FOR THREE DAYS. COPD #36 Ref 0 TAB Thiamine HCl (Thiamine HCl) 100 Mg Tab 100 MG PO DAILY alcohol #30 Ref 0 TAB Tiotropium [place] (Spiriva 18 Mcg Oral Inh) 18 Mcg Inhp 18 MCG INH DAILY copd #1 Ref 0 INHALER Discontinued Medications: Levofloxacin (Levofloxacin) 750 Mg Tab 750 MG PO DAILY COPD #5 Ref 0 TAB Nuha Delgado MD Apr 27, 2016 07:34
[2016-04-27] MEDS: RESP: ALBUTEROL 2.5 MG/IPRATROPIUM 0.5 MG NEB (SCH) NEB ×3 (07:35→19:24)
[2016-04-27] MEDS ORDERED: LACTCHW3 CHEW (07:37)
[2016-04-27] MEDS ORDERED: CEFT250T8 PO (07:37)
[2016-04-27] MEDS ORDERED: MUCI30TA2 PO (07:40)
[2016-04-27] MEDS: PANTOPRAZOLE SOD 40 MG DELAYED RELEASE TAB PO SCH (08:32)
[2016-04-27] MEDS: THIAMINE HCL 100 MG TAB PO SCH (08:32)
[2016-04-27] MEDS: DILTIAZEM-CD 240 MG CAP ER PO SCH (08:32)
[2016-04-27] MEDS: MAGNESIUM OXIDE 400 MG TAB PO SCH (08:32)
[2016-04-27] MEDS: MULTIVITAMINS/MINERALS THERAPEUTIC TAB PO SCH (08:32)
[2016-04-27] MEDS: APIXABAN 5 MG TABLET PO SCH ×2 (08:33→21:53)
[2016-04-27] MEDS: SODIUM CHLORIDE 0.9% FLUSH 5 ML FLUSH IV FLUSH SCH ×2 (08:33→21:53)
[2016-04-27] MEDS: FOLIC ACID 1 MG TAB PO SCH (08:33)
[2016-04-27] MEDS ORDERED: LORA-373 PO (10:46)
--- NOTE | 2016-04-27 12:54 | PD.CARD.PN ---
Subjective Subjective Remarks Dyspnea overall getting better. No CP, dizziness, palpitations, nausea. Objective Medications Item Value Date Time Diltiazem HCl 240 mg 04/26/16 1400 (Cardizem Cd) DAILY/PO 04/27/16 0832 Apixaban 5 mg 04/25/16 2100 (Eliquis) BID/PO 04/27/16 0833 Vital Signs / I&O Vital Signs Date Time Temp Pulse Resp B/P Pulse Ox O2 Delivery O2 Flow Rate FiO2 04/27/16 12:18 75 04/27/16 11:20 73 04/27/16 11:20 98.3 92 20 118/68 94 04/27/16 10:01 73 04/27/16 09:34 75 04/27/16 08:00 72 04/27/16 07:34 94 21 04/27/16 07:30 96.0 92 18 124/75 98 04/27/16 07:30 69 04/27/16 06:00 90 04/27/16 05:58 90 20 159/82 93 04/27/16 05:00 84 04/27/16 04:00 86 04/27/16 03:00 80 04/27/16 02:00 88 04/27/16 01:00 92 04/27/16 00:03 89 22 146/86 100 04/27/16 00:00 102 04/26/16 23:00 90 04/26/16 22:00 94 04/26/16 21:00 92 04/26/16 20:00 90 04/26/16 20:00 97.7 91 20 121/74 99 04/26/16 19:47 98 Nasal Cannula 21 04/26/16 19:00 93 04/26/16 18:00 92 04/26/16 17:00 92 04/26/16 16:00 98 04/26/16 15:00 96 04/26/16 15:00 97.8 99 20 144/88 99 04/26/16 14:00 112 04/26/16 13:00 100 I/O 04/26/16 04/26/16 04/26/16 04/27/16 04/27/16 04/27/16 07:00 15:00 23:00 07:00 15:00 23:00 Intake Total 1011 ml 1080 ml 2757 ml Output Total 275 ml 450 ml 540 ml Balance 736 ml 630 ml 2217 ml Intake Oral 720 ml 240 ml 720 ml IV Total 291 ml 840 ml 2037 ml Output Urine Total 275 ml 450 ml 540 ml # Bowel Movements 0 Physical Exam GENERAL: Well developed, well nourished. No acute distress. HEENT: Jugular venous pressure is normal. CHEST: Diffuse mild expiratory wheezes. CARDIAC: Regular rate and rhythm without S3, S4, or murmur. ABDOMEN: Soft, nontender, no hepatosplenomegaly. Bowel sounds present. EXTREMITIES: No clubbing, cyanosis, or edema. Laboratory Laboratory Tests Test 04/26/16 04/27/16 04/27/16 17:47 04:02 04:18 Potassium Level 4.0 MEQ/L 4.1 MEQ/L White Blood Count 20.9 TH/MM3 Red Blood Count 4.30 MIL/MM3 Hemoglobin 13.7 GM/DL Hematocrit 40.5 % Mean Corpuscular Volume 94.3 FL Mean Corpuscular Hemoglobin 31.8 PG Mean Corpuscular Hemoglobin 33.8 % Concent Red Cell Distribution Width 14.8 % Platelet Count 219 TH/MM3 Mean Platelet Volume 6.7 FL Neutrophils (%) (Auto) 94.1 % Lymphocytes (%) (Auto) 2.6 % Monocytes (%) (Auto) 3.1 % Eosinophils (%) (Auto) 0.0 % Basophils (%) (Auto) 0.2 % Neutrophils # (Auto) 19.6 TH/MM3 Lymphocytes # (Auto) 0.5 TH/MM3 Monocytes # (Auto) 0.6 TH/MM3 Eosinophils # (Auto) 0.0 TH/MM3 Basophils # (Auto) 0.0 TH/MM3 CBC Comment DIFF FINAL Differential Comment Sodium Level 134 MEQ/L Chloride Level 95 MEQ/L Carbon Dioxide Level 30.3 MEQ/L Anion Gap 9 MEQ/L Blood Urea Nitrogen 23 MG/DL Creatinine 1.03 MG/DL Estimat Glomerular Filtration 71 ML/MIN Rate Random Glucose 180 MG/DL Calcium Level 8.7 MG/DL Magnesium Level 2.2 MG/DL Urine Color LIGHT-YELLOW Urine Turbidity CLEAR Urine pH 5.5 Urine Specific [place] 1.008 Urine Protein NEG mg/dL Urine Glucose (UA) NEG mg/dL Urine Ketones NEG mg/dL Urine Occult Blood NEG Urine Nitrite NEG Urine Bilirubin NEG Urine Urobilinogen LESS THAN 2.0 MG/DL Urine Leukocyte Esterase NEG Urine WBC LESS THAN 1 /hpf Urine Mucus FEW /lpf Microscopic Urinalysis Comment CULT NOT INDICATED Assessment and Plan Problem List: (1) Paroxysmal atrial flutter Assessment and Plan: Remains in NSR. Echo reportedly shows normal LV function. Rec continue Cardizem CD and apixaban. OK to discharge from a cardiac standpoint, f[facility]. (2) Hypertension Assessment and Plan: Normotensive at present. Cont Cardizem CD. Code Status full code Discussed Condition With patient Problem Qualifiers (1) Hypertension: Qualified Code: I10 - Essential hypertension Dalton Leach MD Apr 27, 2016 12:53
--- NOTE | 2016-04-27 14:41 | EKG ---
Date Performed: 04/26/2016 Time Performed: 22:50:56 PTAGE: 71 years EKG: Sinus rhythm . Anteroseptal T wave changes are nonspecific Borderline ECG PREVIOUS TRACING : 04/25/2016 15.14 Compared to previous tracing, sinus rhythm has replaced atr ial flutter. DOCTOR: Dalton Leach Interpretating Date/Time 04/27/2016 14:39:41
--- NOTE | 2016-04-27 15:53 | HHI.PR ---
Subjective Remarks Patient in bed. appears in nad. He was noted ?? smoking in the room per nurse. Patient says she is still with less sob. No palpitations. No n/v/d/c. Objective Vitals Vital Signs Date Time Temp Pulse Resp B/P Pulse Ox O2 Delivery O2 Flow Rate FiO2 04/27/16 14:11 97 Nasal Cannula 3.00 04/27/16 14:04 78 04/27/16 13:01 73 04/27/16 12:18 75 04/27/16 11:20 73 04/27/16 11:20 98.3 92 20 118/68 94 04/27/16 10:01 73 04/27/16 09:34 75 04/27/16 08:00 72 04/27/16 07:34 94 21 04/27/16 07:30 96.0 92 18 124/75 98 04/27/16 07:30 69 04/27/16 06:00 90 04/27/16 05:58 90 20 159/82 93 04/27/16 05:00 84 04/27/16 04:00 86 04/27/16 03:00 80 04/27/16 02:00 88 04/27/16 01:00 92 04/27/16 00:03 89 22 146/86 100 04/27/16 00:00 102 04/26/16 23:00 90 04/26/16 22:00 94 04/26/16 21:00 92 04/26/16 20:00 90 04/26/16 20:00 97.7 91 20 121/74 99 04/26/16 19:47 98 Nasal Cannula 21 04/26/16 19:00 93 04/26/16 18:00 92 04/26/16 17:00 92 04/26/16 16:00 98 I/O 04/26/16 04/26/16 04/26/16 04/27/16 04/27/16 04/27/16 07:00 15:00 23:00 07:00 15:00 23:00 Intake Total 1011 ml 1080 ml 2757 ml Output Total 275 ml 450 ml 540 ml Balance 736 ml 630 ml 2217 ml Intake Oral 720 ml 240 ml 720 ml IV Total 291 ml 840 ml 2037 ml Output Urine Total 275 ml 450 ml 540 ml # Bowel Movements 0 Result Diagram: 04/27/16 0402 04/27/16 0402 Imaging Last Impressions Renal Ultrasound 04/26/16 0000 Signed Impressions: Service Date/Time: Tuesday, April 26, 2016 11:04 - CONCLUSION: 1. Increased echogenicity suggestive of chronic medical renal disease. 2. No hydronephrosis. Taco Valdez MD Chest X-Ray 04/25/16 1520 Signed Impressions: Service Date/Time: April 15:37 - CONCLUSION: Stable chest x-ray without an acute finding identified. Background lung changes are suggestive of obstructive airways disease/emphysema. Arash Chong MD Objective Remarks GENERAL: This is a well-nourished, well-developed patient, with some sob. SKIN: No rashes, ecchymoses or lesions. Cool and dry. HEAD: Atraumatic. Normocephalic. No temporal or scalp tenderness. EYES: Pupils equal round and reactive. Extraocular motions intact. No scleral icterus. No injection or drainage. ENT: Nose without bleeding, purulent drainage or septal hematoma. Throat without erythema, tonsillar hypertrophy or exudate. Uvula midline. Airway patent. NECK: Trachea midline. No JVD or lymphadenopathy. Supple, nontender, no meningeal signs. CARDIOVASCULAR: Irregularly irregular rhythm. No murmurs, gallops, or rubs. RESPIRATORY: Decreased breath sounds. Scattered wheezing. GASTROINTESTINAL: Abdomen soft, non-tender, nondistended. No hepato-splenomegaly , or palpable masses. No guarding. MUSCULOSKELETAL: Extremities without clubbing, cyanosis, or edema. No joint tenderness, effusion, or edema noted. No calf tenderness. Negative Homans sign bilaterally. NEUROLOGICAL: Awake and alert. Cranial nerves II through XII intact. Motor and sensory grossly within normal limits. Five out of 5 muscle strength in all muscle groups. Normal speech. A/P Assessment and Plan 71 year-old male with history of hypertension, hepatitis C, reflux, alcoholism here with shortness of breath worsening over the past 4 days. New onset Afib/Aflutter COPD exacerbation Acute respiratory failure requiring O2 by nasal canula ETOH use and tobacco use. Counselled. On IVF. Start CIWA protocol. 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 partial liver resection vs biopsy. On IVF. Monitor Na level closely for fast correction. Diabetes mellitis. says he is not taking meds and doesn't follow with doctors. Check A1c. Start ISS, accuchecks Hypokalemia. Replaced. Monitor and replace. In IVF with KCl additive, Also check mag. Keep K > 4 and Mag > 2 as patient with arrhythmia as above. Will add KCL additive to IVF. joe extra K as noted K level of 2.9 ( 04/26) JAROCHO. Will check UA and Kidney US likely cardio- renal syndrom. Monitor kidney function. Kidney uS reviewed changes consistent with CKD. Renal indices improved. Received Cardizem 20mg IV in the ED and also en route to the hospital another bolus of cardizem Place on cardizem drip. Turn cardizem drip off if HR < 90 sustained. Turn on cardizem drip if HR sustained > 110. Add cardizem PO . Wean off cardizem drip. Curently on cardizem PO continue at DC Monitor on telemetry Start eliquis as patient with HTN, DM. Check FOBT 2D ECHO reviewed normal EF Check A1c and lipid panel Solumedrol, duonebs scheduled and as need. Taper steroids and duonebs as tolerated. Monitor Monitor VS closely DVT ppx SCD/TEDs, apixaban Code Status full Discussed Condition With Patient, nurse PT recommends SNF. Plan to DC to SNF. CM following for DC plan. [id number] signed. Nuha Delgado MD Apr 27, 2016 15:53
[2016-04-27] MEDS: guaiFENesin/DEXTROMETHORPHAN 200 MG/20 MG/10 ML CUP PO PRN (21:53)
[2016-04-27] MEDS: ACETAMINOPHEN 325 MG TAB PO PRN (22:34)
[2016-04-28] VITALS (24 sets, daily range): BP systolic 114–159; BP diastolic 51–83; PULSE 70–94; RESP 18–22; TEMP 97.4–98.6; O2SAT 95–100
[2016-04-28] MEDS: LORazepam 2 MG/ML VIAL IV PUSH PRN (01:32)
[2016-04-28] MEDS: methylPREDNISolone SOD SUCC 40 MG/1 ML VIAL IV PUSH SCH ×3 (06:00→21:25)
[2016-04-28] MEDS: RESP: ALBUTEROL 2.5 MG/IPRATROPIUM 0.5 MG NEB (SCH) NEB ×3 (08:51→20:11)
[2016-04-28] MEDS: SODIUM CHLORIDE 0.9% FLUSH 5 ML FLUSH IV FLUSH SCH ×2 (09:00→21:25)
[2016-04-28 09:41] LABS: HEMOGLOBIN A1a 1.4 %; HEMOGLOBIN A1b 1.9 %; HEMOGLOBIN Ao 84.4 %; HEMOGLOBIN LA1C 1.9 %; HEMOGLOBIN P3 3.9 %
[2016-04-28] MEDS: APIXABAN 5 MG TABLET PO SCH ×2 (09:43→21:25)
[2016-04-28] MEDS: MAGNESIUM OXIDE 400 MG TAB PO SCH (09:43)
[2016-04-28] MEDS: PANTOPRAZOLE SOD 40 MG DELAYED RELEASE TAB PO SCH (09:43)
[2016-04-28] MEDS: THIAMINE HCL 100 MG TAB PO SCH (09:43)
[2016-04-28] MEDS: FOLIC ACID 1 MG TAB PO SCH (09:43)
[2016-04-28] MEDS: DILTIAZEM-CD 240 MG CAP ER PO SCH (09:43)
[2016-04-28] MEDS: MULTIVITAMINS/MINERALS THERAPEUTIC TAB PO SCH (09:44)
[2016-04-28] MEDS ORDERED: NICO21DI2 T-DERMAL (11:26)
--- NOTE | 2016-04-28 11:51 | HHI.PR ---
Subjective Remarks Patient in nad. up in the chair eating. Doesn't feel palpitations. No n/v/d. Has constipation. no chest pain. Less sob, no lightheadedness, feels very tired. Wheezing at times, sattign well on NC. Objective Vitals Vital Signs Date Time Temp Pulse Resp B/P Pulse Ox O2 Delivery O2 Flow Rate FiO2 04/28/16 10:49 76 04/28/16 09:00 74 04/28/16 08:30 86 04/28/16 07:45 97.6 76 22 138/79 95 04/28/16 07:45 84 04/28/16 05:00 70 04/28/16 04:00 97.7 74 22 114/51 98 04/28/16 04:00 81 04/28/16 03:00 76 04/28/16 02:00 74 04/28/16 01:25 97.6 78 20 137/76 97 04/28/16 01:00 94 04/28/16 00:00 78 04/27/16 23:00 82 04/27/16 22:00 82 04/27/16 21:00 76 04/27/16 20:16 97.9 80 145/79 100 04/27/16 20:00 82 04/27/16 19:24 93 21 04/27/16 19:00 72 04/27/16 18:29 75 04/27/16 17:11 77 04/27/16 15:45 82 04/27/16 15:45 98.2 86 18 117/74 95 04/27/16 14:11 97 Nasal Cannula 3.00 04/27/16 14:04 78 04/27/16 13:01 73 04/27/16 12:18 75 I/O 04/27/16 04/27/16 04/27/16 04/28/16 04/28/16 04/28/16 07:00 15:00 23:00 07:00 15:00 23:00 Intake Total 2757 ml 960 ml 3168 ml Output Total 540 ml 600 ml 525 ml Balance 2217 ml 360 ml 2643 ml Intake Oral 720 ml 960 ml 1880 ml IV Total 2037 ml 1288 ml Output Urine Total 540 ml 600 ml 525 ml # Bowel Movements 0 0 Result Diagram: 2/25/17 0402 2/25/17 0402 Imaging Last Impressions Renal Ultrasound 04/26/16 0000 Signed Impressions: Service Date/Time: Tuesday, April 26, 2016 11:04 - CONCLUSION: 1. Increased echogenicity suggestive of chronic medical renal disease. 2. No hydronephrosis. Taco Valdez MD Chest X-Ray 04/25/16 1520 Signed Impressions: Service Date/Time: April 15:37 - CONCLUSION: Stable chest x-ray without an acute finding identified. Background lung changes are suggestive of obstructive airways disease/emphysema. Arash Chong MD Objective Remarks GENERAL: This is a well-nourished, well-developed patient, with some sob. SKIN: No rashes, ecchymoses or lesions. Cool and dry. HEAD: Atraumatic. Normocephalic. No temporal or scalp tenderness. EYES: Pupils equal round and reactive. Extraocular motions intact. No scleral icterus. No injection or drainage. ENT: Nose without bleeding, purulent drainage or septal hematoma. Throat without erythema, tonsillar hypertrophy or exudate. Uvula midline. Airway patent. NECK: Trachea midline. No JVD or lymphadenopathy. Supple, nontender, no meningeal signs. CARDIOVASCULAR: Irregularly irregular rhythm. No murmurs, gallops, or rubs. RESPIRATORY: Decreased breath sounds. Scattered wheezing. GASTROINTESTINAL: Abdomen soft, non-tender, nondistended. No hepato-splenomegaly , or palpable masses. No guarding. MUSCULOSKELETAL: Extremities without clubbing, cyanosis, or edema. No joint tenderness, effusion, or edema noted. No calf tenderness. Negative Homans sign bilaterally. NEUROLOGICAL: Awake and alert. Cranial nerves II through XII intact. Motor and sensory grossly within normal limits. Five out of 5 muscle strength in all muscle groups. Normal speech. A/P Assessment and Plan 71 year-old male with history of hypertension, hepatitis C, reflux, alcoholism here with shortness of breath worsening over the past 4 days. New onset Afib/Aflutter Received Cardizem 20mg IV in the ED and also en route to the hospital another bolus of cardizem Place on cardizem drip. Turn cardizem drip off if HR < 90 sustained. Turn on cardizem drip if HR sustained > 110. Add cardizem PO . Wean off cardizem drip. Curently on cardizem PO continue at DC Monitor on telemetry Start eliquis as patient with HTN, DM. Check FOBT 2D ECHO reviewed normal EF Check A1c and lipid panel pending COPD exacerbation Solumedrol, duonebs scheduled and as need. Taper steroids and duonebs as tolerated. Monitor Monitor VS closely Acute respiratory failure requiring O2 by nasal canula ETOH use. Counselled. On IVF. Start CIWA protocol. Tobacco use. Counselled. Nicotine patch. 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 partial liver resection vs biopsy. On IVF. Monitor Na level closely for fast correction. Diabetes mellitis. says he is not taking meds and doesn't follow with doctors. Check A1c. Start ISS, accuchecks Hypokalemia. Replaced. Monitor and replace. In IVF with KCl additive, Also check mag. Keep K > 4 and Mag > 2 as patient with arrhythmia as above. Will add KCL additive to IVF. joe extra K as noted K level of 2.9 ( 04/26) Replaced. Continue to monitor and replace as needed. JAROCHO. Will check UA and Kidney US likely cardio- renal syndrom. Monitor kidney function. Kidney US reviewed changes consistent with CKD. Renal indices improved. Constipation. Laxatives/stool softeners. DVT ppx SCD/TEDs, apixaban Code Status full Discussed Condition With Patient, nurse PT recommends SNF. Plan to DC to SNF. CM following for DC plan. [id number] signed. Nuha Delgado MD Apr 28, 2016 11:51
[2016-04-28] MEDS: NICOTINE 21 MG/24 HR PATCH TD SCH (12:00)
[2016-04-28] MEDS: LORazepam 1 MG TAB PO PRN (13:17)
[2016-04-28] MEDS: NS + KCL 20 MEQ INJ 1,000 ML IV SCH (17:00)
[2016-04-28] MEDS: RESP: ALBUTEROL 2.5 MG/IPRATROPIUM 0.5 MG NEB (PRN) NEB ×2 (17:52→23:07)
[2016-04-29] VITALS (22 sets, daily range): BP systolic 127–171; BP diastolic 70–89; PULSE 80–122; RESP 16–24; TEMP 98.1–98.6; O2SAT 94–100
[2016-04-29] MEDS: LORazepam 1 MG TAB PO PRN ×4 (01:08→21:53)
[2016-04-29] MEDS: NS + KCL 20 MEQ INJ 1,000 ML IV SCH ×2 (04:55→15:16)
[2016-04-29 06:08] LABS: AUTOMATED NEUTROPHIL # 15.2 TH/MM3 (1.8-7.7); BASOPHIL % 0.1 % (0.0-2.0); HEMATOCRIT 38.9 % (39.0-51.0); HEMO FLAGS DIFF FINAL; LYMPH % 2.6 % (9.0-44.0); LYMPHOCYTE # 0.4 TH/MM3 (1.0-4.8); MEAN CELL VOLUME 94.5 FL (80.0-100.0); MEAN CORPUSCULAR HEMOGLOBIN 31.5 PG (27.0-34.0); MEAN CORPUSCULAR HGB CONC 33.4 % (32.0-36.0); MONO % 5.4 % (0.0-8.0); NEUT % 91.9 % (16.0-70.0); PLATELET COUNT 236 TH/MM3 (150-450); RED BLOOD COUNT 4.12 MIL/MM3 (4.50-5.90); RED CELL DISTRIBUTION WIDTH 14.9 % (11.6-17.2); WHITE BLOOD COUNT 16.5 TH/MM3 (4.0-11.0)
[2016-04-29 06:36] LABS: BICARBONATE 37.3 MEQ/L (21.0-32.0); MAGNESIUM 2.3 MG/DL (1.5-2.5); POTASSIUM 4.8 MEQ/L (3.5-5.1)
[2016-04-29 06:40] LABS: HDL CHOLESTEROL 58.4 MG/DL (40.0-60.0)
[2016-04-29] MEDS: FOLIC ACID 1 MG TAB PO SCH (07:54)
[2016-04-29] MEDS: SODIUM CHLORIDE 0.9% FLUSH 5 ML FLUSH IV FLUSH SCH ×2 (07:54→21:54)
[2016-04-29] MEDS: methylPREDNISolone SOD SUCC 40 MG/1 ML VIAL IV PUSH SCH ×2 (07:54→21:53)
[2016-04-29] MEDS: MULTIVITAMINS/MINERALS THERAPEUTIC TAB PO SCH (07:55)
[2016-04-29] MEDS: PANTOPRAZOLE SOD 40 MG DELAYED RELEASE TAB PO SCH (07:55)
[2016-04-29] MEDS: DILTIAZEM-CD 240 MG CAP ER PO SCH (07:55)
[2016-04-29] MEDS: APIXABAN 5 MG TABLET PO SCH ×2 (07:55→21:53)
[2016-04-29] MEDS: THIAMINE HCL 100 MG TAB PO SCH (07:55)
[2016-04-29] MEDS: MAGNESIUM OXIDE 400 MG TAB PO SCH (07:55)
[2016-04-29] MEDS: REMOVE OLD PATCH TD SCH (07:55)
[2016-04-29] MEDS: NICOTINE 21 MG/24 HR PATCH TD SCH (07:56)
[2016-04-29] MEDS: RESP: ALBUTEROL 2.5 MG/IPRATROPIUM 0.5 MG NEB (SCH) NEB ×2 (09:36→14:20)
--- NOTE | 2016-04-29 13:19 | HHI.PR ---
Subjective Remarks Patient is in the chair, eating, appears chronically ill. Less wheezing and sob. Still coughing. Nofever or chills. No n/v/d/c. Objective Vitals Vital Signs Date Time Temp Pulse Resp B/P Pulse Ox O2 Delivery O2 Flow Rate FiO2 04/29/16 12:00 98.1 98 22 156/89 100 04/29/16 12:00 93 04/29/16 11:00 108 04/29/16 10:00 122 04/29/16 09:39 96 21 04/29/16 09:00 106 04/29/16 08:00 98.2 94 24 171/87 96 04/29/16 08:00 82 04/29/16 07:00 80 04/29/16 06:00 87 04/29/16 05:00 80 04/29/16 04:00 82 04/29/16 03:00 89 04/29/16 03:00 98.4 88 16 153/84 97 04/29/16 02:00 88 04/29/16 01:00 87 04/29/16 00:00 89 04/28/16 23:00 98.6 87 18 156/80 100 04/28/16 23:00 87 04/28/16 22:00 84 04/28/16 20:11 95 Nasal Cannula 3.00 04/28/16 20:00 98.4 79 18 159/83 100 04/28/16 20:00 79 04/28/16 18:14 90 04/28/16 17:40 77 04/28/16 16:01 74 04/28/16 15:45 79 04/28/16 15:45 97.4 82 20 128/72 98 04/28/16 14:23 82 I/O 04/28/16 04/28/16 04/28/16 04/29/16 04/29/16 04/29/16 07:00 15:00 23:00 07:00 15:00 23:00 Intake Total 3168 ml 720 ml 1560 ml Output Total 525 ml 400 ml 1075 ml Balance 2643 ml 320 ml 485 ml Intake Oral 1880 ml 720 ml 720 ml IV Total 1288 ml 840 ml Output Urine Total 525 ml 400 ml 1075 ml # Voids 2 # Bowel Movements 0 1 1 Result Diagram: 04/29/16 0550 04/29/16 0550 Imaging Last Impressions Renal Ultrasound 04/26/16 0000 Signed Impressions: Service Date/Time: Tuesday, April 26, 2016 11:04 - CONCLUSION: 1. Increased echogenicity suggestive of chronic medical renal disease. 2. No hydronephrosis. Taco Valdez MD Chest X-Ray 04/25/16 1520 Signed Impressions: Service Date/Time: April 15:37 - CONCLUSION: Stable chest x-ray without an acute finding identified. Background lung changes are suggestive of obstructive airways disease/emphysema. Arash Chong MD Objective Remarks GENERAL: This is a well-nourished, well-developed patient, with some sob. SKIN: No rashes, ecchymoses or lesions. Cool and dry. HEAD: Atraumatic. Normocephalic. No temporal or scalp tenderness. EYES: Pupils equal round and reactive. Extraocular motions intact. No scleral icterus. No injection or drainage. ENT: Nose without bleeding, purulent drainage or septal hematoma. Throat without erythema, tonsillar hypertrophy or exudate. Uvula midline. Airway patent. NECK: Trachea midline. No JVD or lymphadenopathy. Supple, nontender, no meningeal signs. CARDIOVASCULAR: Irregularly irregular rhythm. No murmurs, gallops, or rubs. RESPIRATORY: Decreased breath sounds. Scattered wheezing. GASTROINTESTINAL: Abdomen soft, non-tender, nondistended. No hepato-splenomegaly , or palpable masses. No guarding. MUSCULOSKELETAL: Extremities without clubbing, cyanosis, or edema. No joint tenderness, effusion, or edema noted. No calf tenderness. Negative Homans sign bilaterally. NEUROLOGICAL: Awake and alert. Cranial nerves II through XII intact. Motor and sensory grossly within normal limits. Five out of 5 muscle strength in all muscle groups. Normal speech. A/P Assessment and Plan 71 year-old male with history of hypertension, hepatitis C, reflux, alcoholism here with shortness of breath worsening over the past 4 days. New onset Afib/Aflutter Received Cardizem 20mg IV in the ED and also en route to the hospital another bolus of cardizem Place on cardizem drip. Turn cardizem drip off if HR < 90 sustained. Turn on cardizem drip if HR sustained > 110. Add cardizem PO . Wean off cardizem drip. Curently on cardizem PO continue at DC Monitor on telemetry Start eliquis as patient with HTN, DM. Check FOBT 2D ECHO reviewed normal EF Check A1c and lipid panel pending COPD exacerbation Solumedrol, duonebs scheduled and as need. Taper steroids and duonebs as tolerated. Monitor Monitor VS closely Acute respiratory failure requiring O2 by nasal canula ETOH use. Counselled. On IVF. Start CIWA protocol. Tobacco use. Counselled. Nicotine patch. 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 partial liver resection vs biopsy. On IVF. Monitor Na level closely for fast correction. Diabetes mellitis. says he is not taking meds and doesn't follow with doctors. Check A1c. Start ISS, accuchecks Hypokalemia. Replaced. Monitor and replace. In IVF with KCl additive, Also check mag. Keep K > 4 and Mag > 2 as patient with arrhythmia as above. Will add KCL additive to IVF. joe extra K as noted K level of 2.9 ( 04/26) Replaced. Continue to monitor and replace as needed. JAROCHO. Will check UA and Kidney US likely cardio- renal syndrom. Monitor kidney function. Kidney US reviewed changes consistent with CKD. Renal indices improved. Constipation. Laxatives/stool softeners. DVT ppx SCD/TEDs, apixaban Code Status full Discussed Condition With Patient, nurse PT recommends SNF. Plan to DC to SNF. CM following for DC plan. [id number] signed. Nuha Delgado MD Apr 29, 2016 13:19
[2016-04-29] MEDS: RESP: ALBUTEROL 2.5 MG/IPRATROPIUM 0.5 MG NEB (PRN) NEB ×2 (16:08→20:06)
[2016-04-30] VITALS (22 sets, daily range): BP systolic 127–174; BP diastolic 70–95; PULSE 84–130; RESP 15–21; TEMP 97–98.8; O2SAT 95–100
[2016-04-30] MEDS: NS + KCL 20 MEQ INJ 1,000 ML IV SCH ×2 (04:42→16:40)
[2016-04-30] MEDS: NICOTINE 21 MG/24 HR PATCH TD SCH (08:58)
[2016-04-30] MEDS: methylPREDNISolone SOD SUCC 40 MG/1 ML VIAL IV PUSH SCH (08:59)
[2016-04-30] MEDS: THIAMINE HCL 100 MG TAB PO SCH (08:59)
[2016-04-30] MEDS: FOLIC ACID 1 MG TAB PO SCH (09:00)
[2016-04-30] MEDS: DILTIAZEM-CD 240 MG CAP ER PO SCH (09:00)
[2016-04-30] MEDS: MULTIVITAMINS/MINERALS THERAPEUTIC TAB PO SCH (09:00)
[2016-04-30] MEDS: APIXABAN 5 MG TABLET PO SCH (09:01)
[2016-04-30] MEDS: MAGNESIUM OXIDE 400 MG TAB PO SCH (09:01)
[2016-04-30] MEDS: PANTOPRAZOLE SOD 40 MG DELAYED RELEASE TAB PO SCH (09:01)
[2016-04-30] MEDS: SODIUM CHLORIDE 0.9% FLUSH 5 ML FLUSH IV FLUSH SCH (09:01)
[2016-04-30] MEDS: REMOVE OLD PATCH TD SCH (09:02)
[2016-04-30] MEDS: LORazepam 1 MG TAB PO PRN (13:36)
--- NOTE | 2016-04-30 13:36 | HHI.PR ---
Subjective Remarks In the chair. Less wheezing today. SOB improving. Feels tired. No n/v/. + cough . No fever or chills. Objective Vitals Vital Signs Date Time Temp Pulse Resp B/P Pulse Ox O2 Delivery O2 Flow Rate FiO2 04/30/16 13:13 98 Nasal Cannula 3.00 04/30/16 12:17 103 04/30/16 12:15 98.2 93 21 174/95 100 04/30/16 10:56 98 04/30/16 07:47 84 04/30/16 07:41 97.0 85 15 142/74 97 04/30/16 04:00 98.7 85 20 140/70 99 04/30/16 04:00 85 04/30/16 00:00 102 04/30/16 00:00 98.8 102 20 142/78 98 04/29/16 20:06 98 Nasal Cannula 2.00 04/29/16 20:00 88 04/29/16 20:00 98.6 88 22 164/88 97 04/29/16 18:00 92 04/29/16 17:00 118 04/29/16 16:00 98.2 81 16 127/70 94 04/29/16 16:00 83 04/29/16 15:00 80 04/29/16 14:00 84 I/O 04/29/16 04/29/16 04/29/16 04/30/16 04/30/16 04/30/16 07:00 15:00 23:00 07:00 15:00 23:00 Intake Total 1560 ml 570 ml 240 ml Output Total 1075 ml 1700 ml 750 ml Balance 485 ml -1130 ml -510 ml Intake Oral 720 ml 570 ml 240 ml IV Total 840 ml Output Urine Total 1075 ml 1700 ml 750 ml # Bowel Movements 1 0 0 Result Diagram: 04/29/16 0550 04/29/16 0550 Imaging Last Impressions Renal Ultrasound 04/26/16 0000 Signed Impressions: Service Date/Time: Tuesday, April 26, 2016 11:04 - CONCLUSION: 1. Increased echogenicity suggestive of chronic medical renal disease. 2. No hydronephrosis. Taco Valdez MD Chest X-Ray 04/25/16 1520 Signed Impressions: Service Date/Time: April 15:37 - CONCLUSION: Stable chest x-ray without an acute finding identified. Background lung changes are suggestive of obstructive airways disease/emphysema. Arash Chong MD Objective Remarks GENERAL: This is a well-nourished, well-developed patient, with some sob. SKIN: No rashes, ecchymoses or lesions. Cool and dry. HEAD: Atraumatic. Normocephalic. No temporal or scalp tenderness. EYES: Pupils equal round and reactive. Extraocular motions intact. No scleral icterus. No injection or drainage. ENT: Nose without bleeding, purulent drainage or septal hematoma. Throat without erythema, tonsillar hypertrophy or exudate. Uvula midline. Airway patent. NECK: Trachea midline. No JVD or lymphadenopathy. Supple, nontender, no meningeal signs. CARDIOVASCULAR: Irregularly irregular rhythm. No murmurs, gallops, or rubs. RESPIRATORY: Decreased breath sounds. Scattered wheezing. GASTROINTESTINAL: Abdomen soft, non-tender, nondistended. No hepato-splenomegaly , or palpable masses. No guarding. MUSCULOSKELETAL: Extremities without clubbing, cyanosis, or edema. No joint tenderness, effusion, or edema noted. No calf tenderness. Negative Homans sign bilaterally. NEUROLOGICAL: Awake and alert. Cranial nerves II through XII intact. Motor and sensory grossly within normal limits. Five out of 5 muscle strength in all muscle groups. Normal speech. A/P Assessment and Plan 71 year-old male with history of hypertension, hepatitis C, reflux, alcoholism here with shortness of breath worsening over the past 4 days. New onset Afib/Aflutter Received Cardizem 20mg IV in the ED and also en route to the hospital another bolus of cardizem Place on cardizem drip. Turn cardizem drip off if HR < 90 sustained. Turn on cardizem drip if HR sustained > 110. Add cardizem PO . Wean off cardizem drip. Curently on cardizem PO continue at DC Monitor on telemetry Start eliquis as patient with HTN, DM. Check FOBT 2D ECHO reviewed normal EF A1c at 6 . Lipid panel fairly good. COPD exacerbation Solumedrol, duonebs scheduled and as need. Taper steroids and duonebs as tolerated. Monitor Monitor VS closely Add mucomist, IS, acapella Acute respiratory failure requiring O2 by nasal canula ETOH use. Counselled. On IVF. Start CIWA protocol. Tobacco use. Counselled. Nicotine patch. 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 partial liver resection vs biopsy. On IVF. Monitor Na level closely for fast correction. Diabetes mellitis, diet controlled. says he is not taking meds and doesn't follow with doctors. A1c at 6. Start ISS, accuchecks. Hypokalemia. Replaced. Monitor and replace. In IVF with KCl additive, Also check mag. Keep K > 4 and Mag > 2 as patient with arrhythmia as above. Will add KCL additive to IVF. joe extra K as noted K level of 2.9 ( 04/26) Replaced. Continue to monitor and replace as needed. JAROCHO. Will check UA and Kidney US likely cardio- renal syndrom. Monitor kidney function. Kidney US reviewed changes consistent with CKD. Renal indices improved. Constipation. Laxatives/stool softeners. DVT ppx SCD/TEDs, apixaban Code Status full Discussed Condition With Patient, nurse PT recommends SNF. Plan to DC to SNF. CM following for DC plan. [id number] signed. Nuha Delgado MD Apr 30, 2016 13:36
[2016-04-30] MEDS ORDERED: guaiFENesin E.R. 600 MG TAB PO SCH (13:45)
[2016-04-30] MEDS: RESP: ALBUTEROL 2.5 MG/IPRATROPIUM 0.5 MG NEB (PRN) NEB ×2 (13:59→15:04)
[2016-04-30] MEDS ORDERED: RESP: ACETYLCYSTEINE 20% 30 ML NEB NEB SCH (16:00)
== END 2016-04-30 20:52 | DRG 308 ==
LOC: NEPC 14:59 → NEDA 16:59 → HCIN 19:04
PROVIDERS: ADMIT Hospitalist; ATTEND Hospitalist
DX: I48.92 Unspecified atrial flutter (principal); J96.00 Acute respiratory failure, unspecified whether with hypoxia or hypercapnia; N17.9 Acute kidney failure, unspecified; J44.1 Chronic obstructive pulmonary disease with (acute) exacerbation; E87.1 Hypo-osmolality and hyponatremia; I48.91 Unspecified atrial fibrillation; B19.20 Unspecified viral hepatitis C without hepatic coma; E87.6 Hypokalemia; E11.9 Type 2 diabetes mellitus without complications; Z91.14 Patient's other noncompliance with medication regimen; Z91.19 Patient's noncompliance with other medical treatment and regimen; F10.10 Alcohol abuse, uncomplicated; E88.09 Other disorders of plasma-protein metabolism, not elsewhere classified; I12.9 Hypertensive chronic kidney disease with stage 1 through stage 4 chronic kidney disease, or unspecified chronic kidney disease; N18.9 Chronic kidney disease, unspecified; K21.9 Gastro-esophageal reflux disease without esophagitis; F17.210 Nicotine dependence, cigarettes, uncomplicated; K59.00 Constipation, unspecified; Z85.47 Personal history of malignant neoplasm of testis; Z92.3 Personal history of irradiation; Z92.21 Personal history of antineoplastic chemotherapy
CPT/HCPCS: 71010; 76775; 76937; 80048; 80061; 81001; 82550; 83036; 83735; 83880; 84132; 84484; 85025; 85610; 85730; 93005; 93306; 94150; 94640; 94664; 96374; J2060; J2920; J3480

== ENCOUNTER 2016-05-21 11:03 | Inpatient (IN) | payer OTHER ==
[2016-05-21] VITALS (17 sets, daily range): BP systolic 128–166; BP diastolic 67–105; PULSE 79–169; RESP 20–28; TEMP 97.9–99; O2SAT 97–100
[~2016-05-21] VITALS: Ht 198.1 cm; Wt 114.7 kg
[~2016-05-21 11:03] MED LIST changes: +APIX5TAB PO; +CARD240C6 PO; +CEFT250T8 PO; +LACTCHW3 CHEW; -LEVO750T33 PO; +LORA-373 PO; +MUCI30TA2 PO; +NICO21DI2 T-DERMAL; +PRED10PA PO
[2016-05-21] MEDS ORDERED: DILTIAZEM HCL 25 MG/5 ML VIAL ONE (11:15)
--- NOTE | 2016-05-21 11:25 | PD ---
HPI Chief Complaint: Cardiac Complaint Time Seen by Provider: 11:16 Travel History International Travel<30 days: No Contact w/Intl Traveler<30days: No Traveled to known affect area: No History of Present Illness HPI The patient is a 71 year-old male who presents emergency department via EMS for shortness of breath. The patient states his symptoms started several days ago, but progressively worsen last night. The patient states his shortness of breath was present at rest, worse with activity. EMS states when they arrived the patient was in SVT administered adenosine 6 mg intravenously, adenosine 12 mg intravenously, and then Cardizem 20 mg intravenously. However, the patient maintained a heart rate between 150 180. The patient cannot feel his heart racing, but does feel lightheaded and generally weak. The patient's primary physician is at the [facility]. The patient was admitted to the hospital in April for SVT/atrial flutter and was started on medication, however, he cannot recall the name of the medication. He states he is not currently anticoagulated. Symptoms are moderate, there are no known alleviating or exacerbating factors. He does also note the edema to lower extremities. PFSH Past Medical History Arthritis: Yes Asthma: Yes Heart Rhythm Problems: Yes Cancer: Yes (TESTICLE, LUNG) Cardiovascular Problems: Yes High Cholesterol: No Chemotherapy: Yes Chest Pain: Yes Congestive Heart Failure: Yes COPD: Yes Cerebrovascular Accident: No Coronary Artery Disease: No Diabetes: Yes Diminished Hearing: No Endocrine: No Gastrointestinal Disorders: Yes GERD: No Genitourinary: Yes Hepatitis: Yes Hiatal Hernia: No Hypertension: Yes Immune Disorder: No Kidney Stones: No Musculoskeletal: Yes Neurologic: No Psychiatric: No Reproductive: No Respiratory: Yes Migraines: Yes Renal Failure: No Seizures: No Sleep Apnea: Yes Thyroid Disease: No Ulcer: Yes Past Surgical History Abdominal Surgery: Yes (Part of liver removed) Cardiac Surgery: No Ear Surgery: No Endocrine Surgery: No Eye Surgery: No Genitourinary Surgery: Yes (testicular cancer) Gynecologic Surgery: No Neurologic Surgery: No Oral Surgery: No Thoracic Surgery: Yes (RL Lobe removed) Other Surgery: Yes (HAND SX) Social History Alcohol Use: Yes (6-8 BURBON/DAY) Tobacco Use: Yes (1/2) Substance Use: No Allergies-Medications (Allergen,Severity, Reaction): Coded Allergies: No Known Allergies (Verified , 05/21/16) Reported Meds & Prescriptions Reported Meds & Active Scripts Active Nicotine Patch (Nicotine) 21 Mg/24 Hr Patch 21 Mg T-DERMAL DAILY Cardizem CD 24 HR (Diltiazem CD 24 HR) 240 Mg Caper 240 Mg PO DAILY Reported Symbicort Inh (Budesonide/Formoterol Fumarate) 160-4.5 Mcg/Act Aero 2 Puff INH Q12HR Tylenol (Acetaminophen) 325 Mg Tab 650 Mg PO Q4H PRN Buspirone (Buspirone HCl) 5 Mg Tab 5 Mg PO TID Spiriva Handihaler (Tiotropium Inh) 18 Mcg Cap 1 Puff INH DAILY 1 capsule = 18 mcg Thiamine (Thiamine HCl) 100 Mg Tab 100 Mg PO DAILY Multi Vitamin and Mineral (Multiple Vitamins W/ Minerals) 1 Tab Tab 1 Tab PO DAILY Guaifenesin Liq (Guaifenesin) 100 mg/5 ML Soln 200 Mg PO QID Folate (Folic Acid) 1 Mg Tab 1 Mg PO DAILY Albuterol Neb (Albuterol Sulfate) 2.5 Mg/3 Ml Neb 2.5 Mg NEB QID Lisinopril 10 Mg Tab 10 Mg PO DAILY Aspirin EC Low Dose (Aspirin) 81 Mg Tabec 162 Mg PO DAILY Review of Systems Except as stated in HPI: all other systems reviewed are Neg General / Constitutional: No: Fever HENT: Positive: Lightheadedness Cardiovascular: Positive: Chest Pain or Discomfort, Irregular Rhythm, Tachycardia, Dyspnea on exertion Respiratory: Positive: Shortness of Breath Gastrointestinal: No: Nausea, Vomiting Musculoskeletal: Positive: Weakness, Edema Neurologic: Positive: Dizziness Physical Exam Narrative GENERAL: Awake, alert, pleasant 71-year-old male who appears his stated age and is in mild respiratory distress. SKIN: Warm and dry. HEAD: Atraumatic. Normocephalic. EYES: Pupils equal and round. No scleral icterus. No injection or drainage. ENT: No nasal bleeding or discharge. Mucous membranes pink and moist. NECK: Trachea midline. No JVD. CARDIOVASCULAR: Regular, tachycardic with a heart rate of 170.. RESPIRATORY: No accessory muscle use. Diminished in the bases bilateral. GASTROINTESTINAL: Abdomen soft obese, no rebound tenderness. MUSCULOSKELETAL: No obvious deformities. No clubbing. No cyanosis. Pitting edema the lower extremities noted, right leg is slightly larger than the left. NEUROLOGICAL: Awake and alert. No obvious cranial nerve deficits. Motor grossly within normal limits. Normal speech. PSYCHIATRIC: Appropriate mood and affect; insight and judgment normal. Data Data Last Documented VS Vital Signs Date Time Temp Pulse Resp B/P Pulse Ox O2 Delivery O2 Flow Rate FiO2 05/21/16 13:21 100 Nasal Cannula 2.00 05/21/16 13:14 125 20 129/80 05/21/16 11:10 99.0 Orders Diltiazem Inj (Cardizem Inj) (05/21/16 11:15) Ecg Monitoring (05/21/16 11:17) Blood Pressure (05/21/16 11:17) Iv Access Insert/Monitor (05/21/16 11:17) Oximetry (05/21/16 11:17) Vital Signs (05/21/16 11:17) Diltiazem Inj (Cardizem Inj) (05/21/16 11:30) Sodium Chloride 0.9% Flush (Ns Flush) (05/21/16 11:30) Electrocardiogram (05/21/16 11:17) Ckmb (Isoenzyme) Profile (05/21/16 11:17) Complete Blood Count With Diff (05/21/16 11:17) Comprehensive Metabolic Panel (05/21/16 11:17) Magnesium (Mg) (05/21/16 11:17) Prothrombin Time / Inr (Pt) (05/21/16 11:17) Act Partial Throm Time (Ptt) (05/21/16 11:17) Troponin I (05/21/16 11:17) Chest, Single Ap (05/21/16 11:17) Ecg Monitoring (05/21/16 11:17) Bilateral Bp Monitoring (05/21/16 11:17) Oxygen Administration (05/21/16 11:17) Aspirin Chew (Aspirin Chew) (05/21/16 11:30) Nitroglycerin 2% Oint (Nitroglycerin 2% (05/21/16 11:30) Sodium Chloride 0.9% Flush (Ns Flush) (05/21/16 11:30) Diltiazem Inj (Cardizem Inj) (05/21/16 11:30) Us Leg Venous Doppler (05/21/16 ) B-Type Natriuretic Peptide (05/21/16 11:40) Albuterol-Ipratropium Neb (Duoneb Neb) (05/21/16 12:45) Digoxin Inj (Lanoxin Inj) (05/21/16 13:30) Admit Order (Ed Use Only) (05/21/16 13:27) Labs Laboratory Tests Test 05/21/16 11:30 White Blood Count 7.4 TH/MM3 Red Blood Count 4.14 MIL/MM3 Hemoglobin 13.5 GM/DL Hematocrit 38.6 % Mean Corpuscular Volume 93.4 FL Mean Corpuscular Hemoglobin 32.6 PG Mean Corpuscular Hemoglobin 35.0 % Concent Red Cell Distribution Width 15.4 % Platelet Count 382 TH/MM3 Mean Platelet Volume 6.2 FL Neutrophils (%) (Auto) 85.5 % Lymphocytes (%) (Auto) 8.5 % Monocytes (%) (Auto) 5.0 % Eosinophils (%) (Auto) 0.6 % Basophils (%) (Auto) 0.4 % Neutrophils # (Auto) 6.4 TH/MM3 Lymphocytes # (Auto) 0.6 TH/MM3 Monocytes # (Auto) 0.4 TH/MM3 Eosinophils # (Auto) 0.0 TH/MM3 Basophils # (Auto) 0.0 TH/MM3 CBC Comment AUTO DIFF Differential Total Cells 100 Counted Neutrophils % (Manual) 75 % Band Neutrophils % 5 % Lymphocytes % 9 % Monocytes % 7 % Eosinophils % 1 % Neutrophils # (Manual) 6.1 TH/MM3 Metamyelocytes 1 % Myelocytes 2 % Differential Comment FINAL DIFF MANUAL Platelet Estimate HIGH Platelet Morphology Comment NORMAL Prothrombin Time 11.3 SEC Prothromb Time International 1.0 RATIO Ratio Activated Partial 26.1 SEC Thromboplast Time Sodium Level 137 MEQ/L Potassium Level 4.2 MEQ/L Chloride Level 102 MEQ/L Carbon Dioxide Level 26.7 MEQ/L Anion Gap 8 MEQ/L Blood Urea Nitrogen 11 MG/DL Creatinine 0.87 MG/DL Estimat Glomerular Filtration 87 ML/MIN Rate Random Glucose 102 MG/DL Calcium Level 9.1 MG/DL Magnesium Level 2.2 MG/DL Total Bilirubin 0.5 MG/DL Aspartate Amino Transf 26 U/L (AST/SGOT) Alanine Aminotransferase 42 U/L (ALT/SGPT) Alkaline Phosphatase 68 U/L Total Creatine Kinase 59 U/L Troponin I LESS THAN 0.02 NG/ML B-Type Natriuretic Peptide 749 PG/ML Total Protein 7.5 GM/DL Albumin 3.3 GM/DL MDM Medical Decision Making Medical Screen Exam Complete: Yes Emergency Medical Condition: Yes Medical Record Reviewed: Yes Interpretation(s) EKG #1 reveals SVT versus atrial flutter with a 2:1 block, a rate of 169 EKG #2 reveals atrial flutter with a rate 89. Last Impressions Lower Extremity Ultrasound 05/21/16 0000 Signed Impressions: Service Date/Time: Saturday, May 21, 2016 11:37 - CONCLUSION: No evidence of deep venous thrombosis within the right lower extremity. Rigoberto Castro MD Chest x-ray reveals cardiomegaly Laboratory Tests Test 05/21/16 11:30 White Blood Count 7.4 TH/MM3 Red Blood Count 4.14 MIL/MM3 Hemoglobin 13.5 GM/DL Hematocrit 38.6 % Mean Corpuscular Volume 93.4 FL Mean Corpuscular Hemoglobin 32.6 PG Mean Corpuscular Hemoglobin 35.0 % Concent Red Cell Distribution Width 15.4 % Platelet Count 382 TH/MM3 Mean Platelet Volume 6.2 FL Neutrophils (%) (Auto) 85.5 % Lymphocytes (%) (Auto) 8.5 % Monocytes (%) (Auto) 5.0 % Eosinophils (%) (Auto) 0.6 % Basophils (%) (Auto) 0.4 % Neutrophils # (Auto) 6.4 TH/MM3 Lymphocytes # (Auto) 0.6 TH/MM3 Monocytes # (Auto) 0.4 TH/MM3 Eosinophils # (Auto) 0.0 TH/MM3 Basophils # (Auto) 0.0 TH/MM3 CBC Comment AUTO DIFF Differential Total Cells 100 Counted Neutrophils % (Manual) 75 % Band Neutrophils % 5 % Lymphocytes % 9 % Monocytes % 7 % Eosinophils % 1 % Neutrophils # (Manual) 6.1 TH/MM3 Metamyelocytes 1 % Myelocytes 2 % Differential Comment FINAL DIFF MANUAL Platelet Estimate HIGH Platelet Morphology Comment NORMAL Prothrombin Time 11.3 SEC Prothromb Time International 1.0 RATIO Ratio Activated Partial 26.1 SEC Thromboplast Time Sodium Level 137 MEQ/L Potassium Level 4.2 MEQ/L Chloride Level 102 MEQ/L Carbon Dioxide Level 26.7 MEQ/L Anion Gap 8 MEQ/L Blood Urea Nitrogen 11 MG/DL Creatinine 0.87 MG/DL Estimat Glomerular Filtration 87 ML/MIN Rate Random Glucose 102 MG/DL Calcium Level 9.1 MG/DL Magnesium Level 2.2 MG/DL Total Bilirubin 0.5 MG/DL Aspartate Amino Transf 26 U/L (AST/SGOT) Alanine Aminotransferase 42 U/L (ALT/SGPT) Alkaline Phosphatase 68 U/L Total Creatine Kinase 59 U/L Troponin I LESS THAN 0.02 NG/ML B-Type Natriuretic Peptide 749 PG/ML Total Protein 7.5 GM/DL Albumin 3.3 GM/DL Differential Diagnosis Differential diagnoses includes atrial flutter, SVT, atrial fibrillation, arrhythmia, pulmonary embolism, congestive heart failure, pleural effusion, electrolyte abnormality. Narrative Course IV was established, labs are drawn and sent, and the patient was placed on cardiac telemetry monitoring and continuous pulse oximetry monitoring. EKG was ordered and interpreted. Initial EKG reveals supraventricular tachycardia, appears regular, with a weight of approximately 170. May be SVT versus atrial flutter with 2:1 block. The patient was administered Cardizem 25 mg intravenously which brought his heart rate down into the 80s. Repeat EKG was performed. Chest x-ray was obtained. Ultrasound of the right lower extremity was obtained to rule out DVT with recent hospitalization and new increased edema. Ultrasound is negative. Chest x-ray reveals cardiomegaly, no outright pulmonary edema. Patient's heart rate did come down into the 90s, per to be atrial flutter with variable block, however, elevated once again. Therefore, patient was placed on a Cardizem drip was titrated. The patient does have atrial flutter and elevated BNP in the 700s, may be early congestive heart failure secondary to the flutter. The patient did receive aspirin, nitroglycerin, and requested a DuoNeb secondary to wheezing. The patient will be admitted to medical service and go to the [facility]. The patient's heart rate continued to be elevated despite Cardizem drip at 15 with 2 previous boluses of Cardizem, therefore, was bolused with digoxin 0.5 mg intravenously. Critical Care Narrative Aggregate critical care time was 40 minutes. Time to perform other separately billable procedures was not included in the critical care time. My time did not include minutes spent treating any other patients simultaneously or on activities that did not directly contribute to the patient's treatment. The services I provided to this patient were to treat and/or prevent clinically significant deterioration that could result in: Anoxia, hypoxia, arrhythmia, pulmonary edema, . I provided critical care services requiring my management, as noted below: Chart data review, documentation time, medication orders and management, vital sign assessments/reviewing monitor data, ordering and reviewing lab tests, ordering and interpreting/reviewing x-rays and diagnostic studies, care of the patient and discussion of the patient with the admitting physicians. Physician Communication Physician Communication I discussed the patient with the on-call medical service who agrees with admission. Diagnosis Primary Impression: Atrial flutter with rapid ventricular response Additional Impression: Congestive heart failure Qualified Code: I50.9 - Congestive heart failure, unspecified congestive heart failure chronicity, unspecified congestive heart failure type Admitting Information Admitting Physician Requests: Admit Condition: Stable Micky Hoffman MD May 21, 2016 11:25 Micky Hoffman MD May 21, 2016 11:25
[2016-05-21] MEDS ORDERED: SODIUM CHLORIDE 0.9% FLUSH 5 ML FLUSH IVF PRN ×2 (11:30)
[2016-05-21] MEDS ORDERED: NITROGLYCERIN 2% OINT 1 GM PACKET TOP ONE (11:30)
[2016-05-21] MEDS ORDERED: DILTIAZEM HCL 25 MG/5 ML VIAL IV ONE (11:30)
[2016-05-21] MEDS ORDERED: ASPIRIN 81 MG CHEW TAB PO ONE (11:30)
[2016-05-21] MEDS ORDERED: DILTIAZEM INJ 125 MG in SODIUM CHLORIDE 0.9% INJ 100 ML IV SCH (11:30)
[2016-05-21 11:58] LABS: AUTOMATED NEUTROPHIL # 6.4 TH/MM3 (1.8-7.7); BASOPHIL % 0.4 % (0.0-2.0); EOSINOPHIL % 0.6 % (0.0-4.0); HEMATOCRIT 38.6 % (39.0-51.0); LYMPH % 8.5 % (9.0-44.0); LYMPHOCYTE # 0.6 TH/MM3 (1.0-4.8); MEAN CELL VOLUME 93.4 FL (80.0-100.0); MEAN CORPUSCULAR HEMOGLOBIN 32.6 PG (27.0-34.0); NEUT % 85.5 % (16.0-70.0); PLATELET COUNT 382 TH/MM3 (150-450); RED BLOOD COUNT 4.14 MIL/MM3 (4.50-5.90); RED CELL DISTRIBUTION WIDTH 15.4 % (11.6-17.2); WHITE BLOOD COUNT 7.4 TH/MM3 (4.0-11.0)
[2016-05-21 11:59] LABS: HEMO FLAGS AUTO DIFF
[2016-05-21 12:09] LABS: APTT (PATIENT) 26.1 SEC (24.3-30.1); PROTHROMBIN TIME - PATIENT 11.3 SEC (9.8-11.6)
[2016-05-21 12:21] LABS: ALT (GPT) 42 U/L (12-78); ANION GAP 8 MEQ/L (5-15); AST (GOT) 26 U/L (15-37); BICARBONATE 26.7 MEQ/L (21.0-32.0); BLOOD UREA NITROGEN 11 MG/DL (7-18); CHLORIDE 102 MEQ/L (98-107); GLOMERULAR FILTRATION RATE 87 ML/MIN (>89); MAGNESIUM 2.2 MG/DL (1.5-2.5); POTASSIUM 4.2 MEQ/L (3.5-5.1); SODIUM (NA) 137 MEQ/L (136-145)
[2016-05-21 12:25] LABS: ALKALINE PHOSPHATASE 68 U/L (45-117); CREATINE KINASE 59 U/L (39-308); TOTAL BILIRUBIN ADULT 0.5 MG/DL (0.2-1.0)
[2016-05-21 12:30] LABS: BANDS 5 % (0-6); EOSINOPHILS 1 % (0-4); METAMYELOCYTES 1 % (0-1); MYELOCYTES 2 % (0-0); NEUTROPHIL # MANUAL DIFF 6.1 TH/MM3 (1.8-7.7); PLATELET ESTIMATE SMEAR HIGH (NORMAL); PLATELET MORPHOLOGY NORMAL (NORMAL); POLYS (SEG NEUTROPHILS) 75 % (16-70); SCAN/DIFF FINAL DIFF MANUAL; WBC DIFF SAMPLE 100
--- NOTE | 2016-05-21 12:40 | RADRPT ---
EXAM DATE/TIME: 05/21/2016 11:37 [facility] COMPARISON: No previous studies available for comparison. INDICATIONS : Right leg swelling. MEDICAL HISTORY : Myocardial infarction. Chronic obstructive pulmonary disease. Congestive heart failure. Hypertensi on. Emphysema. Ulcer. Arthritis. Testicular cancer. Lung cancer. Hepatitis. Diabetes. Liver cancer. E STEVE use. SURGICAL HISTORY : Right hand surgery. Right lobe of lung removed. Right testicle removed. ENCOUNTER: Initial ACUITY: 4 - 6 days PAIN SCORE: 0/10 LOCATION: Right leg. TECHNIQUE: Venous ultrasound of the leg was performed from the inguinal ligament to the proximal calf. Real-xiomara e, color Doppler and spectral tracing, compression and augmentation techniques were used. FINDINGS: There is normal compressibility of the deep venous system from the inguinal region to the proximal ca lf. No echogenic clot is seen in the lumen of the common femoral, femoral, popliteal, and posterior tibial veins. There is a normal response of the venous system to proximal and distal augmentation an d respiration. CONCLUSION: No evidence of deep venous thrombosis within the right lower extremity. Rigoberto Castro MD on May 21, 2016 at 12:38 Board Certified Radiologist. This report was verified electronically.
[2016-05-21] MEDS ORDERED: RESP: ALBUTEROL 2.5 MG/IPRATROPIUM 0.5 MG NEB (SCH) NEB ONE (12:45)
--- NOTE | 2016-05-21 13:23 | HHI.HP ---
[facility] Service Family Medicine Primary Care Physician [facility] Admission Diagnosis Diagnoses: International Travel<30 Days: No Contact w/Intl Traveler<30days: No Known Affected Area: No History of Present Illness 71M presents after three days of worsening shortness of breath and chest pain. Terribly bad symptoms, can make it to bathroom, rests, then back to bed. Heavy breathing for a while improves the symptoms but they do not go away. Sitting up helps, cannot lie flat for long without symptoms. Cannot speak after walking short distances due to shortness of breath. Endorses chest discomfort, "not pain " due to COPD, but did have chest pain this morning. No other symptoms including fevers, chills, recent illnesses, nausea. Diarrhea chronically since he has had COPD, sometimes has bright red blood in the stool, last episode 2 days again. These symptoms are chronic, at baseline he is able to only get twenty feet of walking prior to symptoms, gradually worsening. Uses albuterol 3-4 times per day for the last couple of years. Using inhaler every time he gets up. Using Symbicort and Spiriva 5-6 times per day, not aware that these are not PRNs. 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 He also notes have a history of testicular cancer - one testis removed. Was on oxygen at home a couple of years ago which was discontinued. Was doing better when he was on oxygen. He doesn't think he'd be admitted if he had oxygen at home. He was admitted for new onset A. fib in April, and at that time he was started on Eliquis 5 mg daily and Cardizem 240 mg daily. Patient does not report knowing which medications he is on at home. (Cammy Bettencourt MD R1) Review of Systems Constitutional: COMPLAINS OF: Weight gain (30lb over last 6 months), DENIES: Fever, Chills Endocrine: COMPLAINS OF: Polyuria (every 1.5hr x years) Eyes: COMPLAINS OF: Blurred vision, DENIES: Diplopia Cardiovascular: COMPLAINS OF: Chest pain, Dyspnea on Exertion, DENIES: Palpitations, Syncope Gastrointestinal: COMPLAINS OF: Bloody stools (brb on tissue), Diarrhea (all the time), DENIES: Abdominal pain, Nausea, Vomiting, Difficulty Swallowing Genitourinary: COMPLAINS OF: Dysuria, Nocturia Integumentary: DENIES: Pruritus, Rash Hematologic/lymphatic: DENIES: Bruising Neurologic: COMPLAINS OF: Localized weakness, Poor Balance, DENIES: Paresthesias, Seizures (Cammy Bettencourt MD R1) Past Family Social History Past Medical History COPD Atrial fibrillation/flutter Diabetes - a1c unknown, no insulin HTN Past Surgical History Ortho - hands, knees, legs Lung cancer - right lung removed 1/3 less than five years Testicular removed Reported Medications Reported Meds & Active Scripts Active Nicotine Patch (Nicotine) 21 Mg/24 Hr Patch 21 Mg T-DERMAL DAILY Lorazepam 0.5 Mg Tab 0.5 Mg PO BID PRN Mucinex DM (Dextromethorphan-Guaifenesin) 30-600 Mg Tab 1 Tab PO BID PRN Lactinex (Lactobacillus Acidophilus) 1 Chew 1 Tab CHEW DAILY Ceftin (Cefuroxime Axetil) 250 Mg Tab 250 Mg PO BID Cardizem CD 24 HR (Diltiazem CD 24 HR) 240 Mg Caper 240 Mg PO DAILY Eliquis (Apixaban) 5 Mg Tab 5 Mg PO BID Folate 1 Mg Tab (Folic Acid) 1 Mg Tab 1 Mg PO DAILY Thiamine HCl 100 Mg Tab 100 Mg PO DAILY Proventil Ud 0.083% (2.5 Mg/3 Ml) (Albuterol Sulfate) 2.5 Mg/3 Ml Inha 2.5 Mg INH Q4 PRN Proventil Hfa (Albuterol Sulfate) 6.7 Gm Aero 1 Puff INH Q4 * SHAKE WELL BEFORE USE * Spiriva 18 Mcg Oral Inh (Tiotropium [place]) 18 Mcg Inhp 18 Mcg INH DAILY Theragran (Multivitamins) 1 Tab Tab 1 Tab PO DAILY 30 Days Prinivil 5 mg (Lisinopril) 5 Mg Tab 5 Mg PO DAILY 30 Days Symbicort (Budesonide/Formoterol Fumarate) 60 Puff Aero 2 Puff INH Q12 Resp: Albuterol 2.5 Mg/3 Ml Neb (Albuterol Sulfate) 2.5 Mg/3 Ml Nebu 2.5 Mg INH Q4 PRN 30 Days (Cammy Bettencourt MD R1) Allergies: Coded Allergies: No Known Allergies (Verified , 05/21/16) Family History Mother: age 57 cancer brain/lung Father: age 86 natural causes Social History Lives with roommate Smoke cigarettes 5-7 cigarettes per day for two-three months, 4 ppd forty years ago (40 years) Alcohol: 1 pint bourbon per day, last weeks ago Illicit: denies Sister is HCS: Rhonda Elliott, [place], number Requests to be full code (Cammy Bettencourt MD R1) Physical Exam Vital Signs Vital Signs Date Time Temp Pulse Resp B/P Pulse Ox O2 Delivery O2 Flow Rate FiO2 05/21/16 13:21 100 Nasal Cannula 2.00 05/21/16 13:14 125 20 129/80 100 Nasal Cannula 2 05/21/16 12:36 90 20 150/84 100 Nasal Cannula 2 05/21/16 11:30 88 20 146/85 100 Nasal Cannula 2 05/21/16 11:28 169 20 100 Nasal Cannula 05/21/16 11:26 89 20 141/81 100 Nasal Cannula 2 05/21/16 11:26 20 100 Nasal Cannula 2 05/21/16 11:26 100 Nasal Cannula 2 05/21/16 11:26 88 20 141/81 100 Nasal Cannula 2 05/21/16 11:10 99.0 169 20 166/105 100 Physical Exam GENERAL: Well developed, well-nourished elderly male. Negative Levines sign. Not diaphoretic. Not anxious appearing on 2 L nasal cannula EYES: PERRLA. EOMI. Lids and conjunctivae reveal no gross abnormality. No scleral icterus. ENT: Hearing adequate. Head NCAT. MMM. OP/OC clear. No cervical or supraclavicular LAD. NECK: No JVD. No carotid bruits. Neck supple, no masses. Trachea midline. No thyromegaly. RESPIRATORY: No evidence of pulmonary edema. Lungs essentially CTAB, no wheezing , crackles, or increased WOB. CARDIOVASCULAR: Irregularly irregular rhythm. Heart rate is 90s on telemetry. Radial and DP pulses 2+ and symmetric bilaterally. Brisk capillary refill. ABDOMEN: S/NT/ND. Bowel sounds present in all quadrants. No masses or pulsations present. EXTREMITIES: Lower extremities notable for 2+ edema to the reilly, right slightly worse than left. No clubbing, cyanosis, or erythema. MUSCULOSKELETAL: No obvious bony deformities or joint pain. Strength 5/5 in upper and lower extremities. No calf tenderness. SKIN: No evidence of cellulitis, ecchymoses. Adequate skin turgor. NEUROLOGICAL: Awake and alert. No obvious cranial nerve deficits. Motor grossly within normal limits. Five out of 5 muscle strength in the arms and legs. Normal speech. PSYCHIATRIC: Appropriate mood and affect; insight and judgment normal. Laboratory Laboratory Tests Test 05/21/16 11:30 White Blood Count 7.4 Red Blood Count 4.14 Hemoglobin 13.5 Hematocrit 38.6 Mean Corpuscular Volume 93.4 Mean Corpuscular Hemoglobin 32.6 Mean Corpuscular Hemoglobin 35.0 Concent Red Cell Distribution Width 15.4 Platelet Count 382 Mean Platelet Volume 6.2 Neutrophils (%) (Auto) 85.5 Lymphocytes (%) (Auto) 8.5 Monocytes (%) (Auto) 5.0 Eosinophils (%) (Auto) 0.6 Basophils (%) (Auto) 0.4 Neutrophils # (Auto) 6.4 Lymphocytes # (Auto) 0.6 Monocytes # (Auto) 0.4 Eosinophils # (Auto) 0.0 Basophils # (Auto) 0.0 CBC Comment AUTO DIFF Differential Total Cells 100 Counted Neutrophils % (Manual) 75 Band Neutrophils % 5 Lymphocytes % 9 Monocytes % 7 Eosinophils % 1 Neutrophils # (Manual) 6.1 Metamyelocytes 1 Myelocytes 2 Differential Comment FINAL DIFF MANUAL Platelet Estimate HIGH Platelet Morphology Comment NORMAL Prothrombin Time 11.3 Prothromb Time International 1.0 Ratio Activated Partial 26.1 Thromboplast Time Sodium Level 137 Potassium Level 4.2 Chloride Level 102 Carbon Dioxide Level 26.7 Anion Gap 8 Blood Urea Nitrogen 11 Creatinine 0.87 Estimat Glomerular Filtration 87 Rate Random Glucose 102 Calcium Level 9.1 Magnesium Level 2.2 Total Bilirubin 0.5 Aspartate Amino Transf 26 (AST/SGOT) Alanine Aminotransferase 42 (ALT/SGPT) Alkaline Phosphatase 68 Total Creatine Kinase 59 Troponin I LESS THAN 0.02 B-Type Natriuretic Peptide 749 Total Protein 7.5 Albumin 3.3 (Cammy Bettencourt MD R1) Result Diagram: 05/21/16 1130 05/21/16 1130 Imaging Last Impressions Lower Extremity Ultrasound 05/21/16 0000 Signed Impressions: Service Date/Time: Saturday, May 21, 2016 11:37 - CONCLUSION: No evidence of deep venous thrombosis within the right lower extremity. Rigoberto Castro MD (Cammy Bettencourt MD R1) Assessment and Plan Assessment and Plan 71M [place] patient with history of atrial flutter, poor historian so unknown medication history, admitted for symptomatic atrial flutter, COPD exacerbation, and chest pain work-up Code Status Full code Discussed Condition With Dr. Alejandro, Dr. Silvestre (Cammy Bettencourt MD R1) Attending Attestation THIS CASE WAS DISCUSSED WITH THE RESIDENT PHYSICIANS. I HAVE REVIEWED THE RECORD AND AGREE WITH THE ABOVE NOTE AND PLAN OF CARE WAS DISCUSSED. I HAVE AUTHORIZED THE ORDER FOR ADMISSION TO AN IN-PATIENT STATUS. (Taco Alejandro MD) Problem List: (1) COPD exacerbation Status: Acute Plan: DDx includes COPD exacerbation, CHF exacerbation, pneumonia, asthma attack, ID, PE (less likely). -Pt. has a pulmonary hx significant for smoking. Pt. not on home O2. -WBC 7.4, neutrophil 75, not clearly indicative of infection but this cannot be ruled on. -EKG showing afib as discussed elsewhere. BNP wnl. Bicarb not elevated. -CXR showed chronic elevation of the right hemidiaphragm. -Re: possibility of PE, Wells score is 1.5. Thus, will defer D-dimer and CTA. -Treat with Supplemental O2 to maintain sats above 90%. Encourage pt. to get OOB and ambulate. -Duonebs q6 hrs. [place]. Caution more frequent treatments given tachycardia -Pt. rec'd Solu-Medrol 125 mg IV 1 in the ED, to continue -Solu-Medrol 125 mg IV twice a day and plan to transition to prednisone 40 mg by mouth daily in the near future. Anticipate steroids will cause bump and WBC tomorrow. -Protonix 40 mg PO daily for GI protection and decr. chances of aspiration pneumonia. -Azithromycin 500 mg PO 1, then 250 mg PO q24 hrs (x 5-7 days). Tylenol PRN. -Mucinex 600 mg tab PO BID PRN congestion. -dextromethorphan PRN cough. -Administer flu vaccine and Pneumovax. -Incentive spirometer. DISPO: -Anticipate discharge in 1-2 days if SOB improves and pt. is weaned off O2. -Plan for pt to have a total of 5 day course of Azithro. Plan to also send pt. with COPD meds and a 2 week steroid taper to decrease the chances of another flare-up. -Consider eval. for home O2 therapy prior to d/c. CM assisting. -Pt. will need f/u with PCP and with tutoring manager as an outpatient. (2) Congestive heart failure Status: Acute Plan: Possible exacerbation. Plan as above COPD exacerbation. BNP is notable to be 749 this admission, was 339 one month ago. Per patient. Patient has a BNP of 749 today. However, on echocardiogram EF 5055 % in April 2016, normal systolic function, normal wall thickness, normal wall motion without any regional wall motion abnormalities. Normal pulmonary artery pressure. He does have 2+ edema of the lower extremities. -Elevate legs, SCDs -Trend troponin, EKG, CK -Lasix 20 mg IV 1 given in ED, 1660 ml UOP documented -Lasix 40mg IV x 1 in AM to encourage diuresis (3) Atrial flutter with rapid ventricular response Status: Acute Plan: Diagnosed April 2016. Discharge from the hospital on Cardizem 240 mg daily and Eliquis is 5 mg daily. Unclear whether the patient was taking these medications. In ED, required multiple IV medications to control rate, which was originally in the 170s reported by [facility]. Rate is currently in the 80s-90s. Adenosine 2, Cardizem 2, digoxin 1 administered. Cardizem drip was initiated in the ED. -Cardiology consulted, placed patient on amiodarone drip, restarted Eliquis (4) Hypertension Status: Chronic Plan: BP 140s-160s SBP on admission Continue home dose lisinopril 10 mg daily Vasotec 0.125mg IV q8h PRN SBP>180, DBP>100 (5) Tobacco abuse Status: Acute Plan: Nicotine patch (6) Alcohol abuse Status: Acute Plan: CIWA protocol (7) Fluids/Electrolytes/Nutrition/Prophylaxis Status: Acute Plan: Fluids: Caution IVF given fluid overloaded Electrolytes: monitor and replete as needed Nutrition: heart-healthy diet DVT Prophylaxis: Lovenox 40mg subQ q24hr/bilateral SCDs GI Prophylaxis: Protonix 40mg PO daily (Cammy Bettencourt MD R1) Physician Certification 2 Midnight Certification Type: Admission for Inpatient Services Order for Inpatient Services The services are ordered in accordance with Medicare regulations or non- Medicare payer requirements, as applicable. In the case of services not specified as inpatient-only, they are appropriately provided as inpatient services in accordance with the 2-midnight benchmark. Estimated LOS (days): 3 days is the estimated time the patient will need to remain in the hospital, assuming treatment plan goals are met and no additional complications. Post-Hospital Plan: Home (Cammy Bettencourt MD R1) Problem Qualifiers (1) Congestive heart failure: Qualified Code: I50.9 - Congestive heart failure, unspecified congestive heart failure chronicity, unspecified congestive heart failure type (2) Hypertension: Qualified Code: I10 - Essential hypertension Cammy Bettencourt MD R1 May 21, 2016 13:23 Taco Alejandro MD May 22, 2016 15:05
[2016-05-21] MEDS ORDERED: DIGOXIN 0.5 MG/2 ML VIAL IV PUSH ONE (13:30)
[2016-05-21] MEDS ORDERED: LORazepam 2 MG TAB PO PRN (14:15)
[2016-05-21] MEDS ORDERED: FLUMAZENIL 0.5 MG/5 ML VIAL IV PUSH PRN (14:15)
[2016-05-21] MEDS ORDERED: LORazepam 1 MG TAB PO PRN (14:15)
[2016-05-21] MEDS ORDERED: NALOXONE HCL 0.4 MG/ML AMP IV PRN (14:15)
[2016-05-21] MEDS ORDERED: ONDANSETRON HCL 4 MG/2 ML VIAL IVP PRN (14:15)
[2016-05-21] MEDS ORDERED: SODIUM CHLORIDE 0.9% FLUSH 10 ML FLUSH IV FLUSH PRN (14:15)
[2016-05-21] MEDS ORDERED: ACETAMINOPHEN 325 MG TAB PO PRN ×2 (14:15→21:45)
[2016-05-21] MEDS ORDERED: LORazepam 2 MG/ML VIAL IV PUSH PRN ×3 (14:15)
[2016-05-21] MEDS ORDERED: methylPREDNISolone SOD SUCC 125 MG/2 ML VIAL IV PUSH ONE (14:30)
[2016-05-21] MEDS ORDERED: predniSONE 20 MG TAB PO SCH (14:30)
--- NOTE | 2016-05-21 14:36 | RADRPT ---
EXAM DATE/TIME: 05/21/2016 12:12 [place] COMPARISON: CHEST SINGLE AP, April 25, 2016, 15:37. INDICATIONS : Short of breath MEDICAL HISTORY : Chronic obstructive pulmonary disease. SURGICAL HISTORY : Right lower lobe removed ENCOUNTER: Initial ACUITY: 1 day PAIN SCORE: 0/10 LOCATION: Chest FINDINGS: There is chronic elevation of the right hemidiaphragm. The heart is stable. The pulmonary vascular p attern is normal. The lungs are clear. CONCLUSION: 1. Chronic elevation of the right hemidiaphragm. 2. No acute focal pulmonary infiltrate or pulmonary vascular congestion. Rigoberto Castro MD on May 21, 2016 at 14:20 Board Certified Radiologist. This report was verified electronically.
[2016-05-21] MEDS ORDERED: FUROSEMIDE 20 MG/2 ML VIAL IV PUSH ONE (14:45)
[2016-05-21] MEDS ORDERED: ENOXAPARIN SODIUM 40 MG/0.4 ML SYRINGE SQ SCH (15:00)
[2016-05-21] MEDS ORDERED: SPIRCAP INH (15:26)
[2016-05-21] MEDS ORDERED: FOLI1TAB4 PO (15:26)
[2016-05-21] MEDS ORDERED: ALBU0.08 NEB (15:26)
[2016-05-21] MEDS ORDERED: BUSP5TAB PO (15:26)
[2016-05-21] MEDS ORDERED: MULT-142 PO (15:26)
[2016-05-21] MEDS ORDERED: TYLE325T PO (15:26)
[2016-05-21] MEDS ORDERED: GUAI100S7 PO (15:26)
[2016-05-21] MEDS ORDERED: ASPI81TA2 PO (15:26)
[2016-05-21] MEDS ORDERED: SYMB160A INH (15:26)
[2016-05-21] MEDS ORDERED: THIA100T PO (15:26)
[2016-05-21] MEDS ORDERED: LISI10TA3 PO (15:26)
[2016-05-21] MEDS: RESP: ALBUTEROL 2.5 MG/IPRATROPIUM 0.5 MG NEB (SCH) INH ×2 (15:30→21:07)
[2016-05-21] MEDS ORDERED: AMIODARONE INJ 150 MG in DEXTROSE 5% IN WATER 100ML INJ 97 ML IV ONE ×2 (16:00)
[2016-05-21 18:17] LABS: CREATINE KINASE 49 U/L (39-308)
--- NOTE | 2016-05-21 18:36 | MB ---
cc: ETHAN BRADLEY M.D. DATE OF CONSULTATION 05/21/2016 DATE OF 1945 REASON FOR CONSULTATION Recurrent atrial flutter. HISTORY OF PRESENT ILLNESS The patient is a pleasant 71-year-old white male with a history of hepatitis C, testicular cancer, COPD, hypertension, diabetes, paroxysmal atrial flutter diagnosed last month who presented to the hospital with a several-day history of increasing shortness of breath. Over the past week he has had considerable dyspnea with very minimal exertion. In the last several days he has also noted increased pedal edema. The patient denies paroxysmal nocturnal dyspnea, orthopnea, chest pain, palpitations, syncope, near-syncope. Infrequently he experiences brief lightheadedness most often when going to the bathroom. The patient reports compliance with his medications. PAST MEDICAL HISTORY 1. Hepatitis C. 2. 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 3. COPD. 4. Hypertension. 5. Diet-controlled diabetes. 6. Paroxysmal atrial flutter diagnosed 04/25/2016. MEDICATIONS His cardiac medications at home: 1. Eliquis 5 mg b.i.d. 2. Cardizem CD 240 mg daily. 3. Lisinopril 5 mg daily. ALLERGIES NO KNOWN DRUG ALLERGIES. FAMILY HISTORY Noncontributory. SOCIAL HISTORY The patient smokes a half-a-pack of cigarettes per day. He drinks fairly heavily on a daily basis. REVIEW OF SYSTEMS As in the history of present illness otherwise negative or noncontributory. He also denies headache, unilateral weakness or numbness, abdominal pain, melena, dyspepsia, bright red blood per rectum, imbalance, falls. PHYSICAL EXAMINATION VITAL SIGNS: His blood pressure 165/81 with a pulse of 87, respiratory rate 20. GENERAL: He is a well-developed, well-nourished white male in no acute distress. HEENT/NECK: On HEENT examination jugular venous pressure is normal. Carotid pulses are 2+ bilaterally and without bruits. LUNGS: Examination of the chest reveals decreased breath sounds at the right base. CARDIOVASCULAR: On cardiac examination he has a regular rhythm and rate without S3-S4 or murmur. ABDOMEN: He has a soft, nontender abdomen. Bowel sounds are present. There is no definite hepatosplenomegaly. EXTREMITIES: Examination of the extremities reveals no clubbing, cyanosis. There is 1+ pretibial edema bilaterally. IMAGING Chest x-ray shows no acute disease. LABORATORY DATA Includes WBC 7.4, hemoglobin 13.5, platelets 382. Potassium 4.2, BUN 11, creatinine 0.87. Troponin less than 0.02. CK 59. EKG shows atrial flutter with variable AV conduction, nonspecific T-wave abnormalities. IMPRESSION Recurrent atrial flutter with rapid ventricular response in this 71-year-old white male with a history of atrial flutter diagnosed about a month ago, hepatitis C, testicular cancer, COPD, hypertension, and diet-controlled diabetes. At this time he remains in atrial flutter with controlled heart rates on high dose intravenous Cardizem. There is no definite evidence for acute coronary syndrome. EKG shows nonspecific T-wave changes. Initial cardiac enzymes are negative for myocardial infarction. Echocardiogram last admission showed normal left ventricular function. There is no definite evidence for congestive heart failure. The patient does report compliance with his medications. His thromboembolic risk with his atrial arrhythmias is fairly high with his age, hypertension, diabetes. RECOMMENDATIONS 1. Continue intravenous Cardizem. 2. Add intravenous amiodarone. 3. Continue Eliquis. MD SHELDON Edwards/KK /3:56 PM /6:25 PM GABRIEL
[2016-05-21] MEDS: AMIODARONE INJ 450 MG in DEXTROSE 5% IN WATE(EXCEL) INJ 241 ML IV SCH ×2 (18:37)
[2016-05-21] MEDS: APIXABAN 5 MG TABLET PO SCH (20:43)
[2016-05-21] MEDS: SODIUM CHLORIDE 0.9% FLUSH 10 ML FLUSH IV FLUSH SCH (21:00)
[2016-05-21] MEDS: LORazepam 2 MG/ML VIAL IV PUSH PRN (21:24)
[2016-05-21] MEDS ORDERED: AZITHROMYCIN 250 MG TAB PO ONE (21:45)
--- NOTE | 2016-05-21 21:53 | HHI.HP ---
[facility] Service Family Medicine Primary Care Physician [facility] Admission Diagnosis Diagnoses: (1) COPD exacerbation (2) Hypertension (3) Atrial flutter with rapid ventricular response (4) Congestive heart failure (5) Tobacco abuse (6) Alcohol abuse International Travel<30 Days: No Contact w/Intl Traveler<30days: No Known Affected Area: No History of Present Illness 71 yo M presenting to the ED with progressive SOB and chest pain. Shortness of breath has been progressively getting worse, now with dyspnea on exertion with minimal activity such as going to the bathroom. He also complains of inability to lie flat due to shortness of breath. He also endorses some palpitations associated with chest pressure. He endorses wheezing and chest tightness, endorses mild cough that is non-productive. He also endorses some diarrhea with some blood on the toilet paper and in the toilet. He denies fevers, chills , recent illness, nausea/vomiting. Uses albuterol 3-4 times per day for the last couple of years. Using inhaler every time he gets up. Using symbicort and spuriva 5-6 times per day, not aware that these are not PRNs. He uses them because "I can't breathe." Review of Systems Constitutional: COMPLAINS OF: Fatigue, DENIES: Diaphoretic episodes, Weight gain, Weight loss, Chills Eyes: DENIES: Blurred vision Respiratory: COMPLAINS OF: Cough, Wheezing, Shortness of breath, DENIES: Sputum production Cardiovascular: COMPLAINS OF: Chest pain, Palpitations, Dyspnea on Exertion, Lower Extremity Edema, Orthopnea Gastrointestinal: COMPLAINS OF: Bloody stools, Diarrhea, DENIES: Abdominal pain, Constipation, Nausea, Vomiting Past Family Social History Past Medical History COPD Atrial fibrillation/flutter Diabetes - a1c unknown, no insulin HTN Past Surgical History Ortho - hands, knees, legs Lung cancer - right lung removed 1/3 less than five years Testicular removed Allergies: Coded Allergies: No Known Allergies (Verified , 05/21/16) Family History Mother: age 57 cancer brain/lung Father: age 86 natural causes Social History Lives with roommate Smoke cigarettes 5-7 cigarettes per day for two-three months, 4 ppd forty years ago (40 years) Alcohol: 1 pint bourbon per day, last weeks ago Illicit: denies Sister is HCS: Rhonda Elliott Porter, no number Requests to be full code Physical Exam Vital Signs Vital Signs Date Time Temp Pulse Resp B/P Pulse Ox O2 Delivery O2 Flow Rate FiO2 05/21/16 21:09 99 Nasal Cannula 2.00 05/21/16 18:38 85 22 145/67 99 Nasal Cannula 2 05/21/16 18:35 82 05/21/16 18:35 98.0 82 24 132/76 99 05/21/16 17:20 87 20 128/70 100 Nasal Cannula 2 05/21/16 15:45 87 20 165/81 99 Nasal Cannula 2 05/21/16 14:20 87 20 165/81 100 Nasal Cannula 2 05/21/16 13:21 100 Nasal Cannula 2.00 05/21/16 13:14 125 20 129/80 100 Nasal Cannula 2 05/21/16 12:36 90 20 150/84 100 Nasal Cannula 2 05/21/16 11:30 88 20 146/85 100 Nasal Cannula 2 05/21/16 11:28 169 20 100 Nasal Cannula 05/21/16 11:26 89 20 141/81 100 Nasal Cannula 2 05/21/16 11:26 20 100 Nasal Cannula 2 05/21/16 11:26 100 Nasal Cannula 2 05/21/16 11:26 88 20 141/81 100 Nasal Cannula 2 05/21/16 11:10 99.0 169 20 166/105 100 Physical Exam GENERAL: Pleasant male laying in bed, mildly labored breathing with accessory muscle use SKIN: Warm and dry. EYES: Pupils equal and round. No scleral icterus. No injection or drainage. ENT: No nasal bleeding or discharge. Mucous membranes pink and moist. NECK: Trachea midline. No JVD. CARDIOVASCULAR: Regular rate and rhythme, heart rate in the 70s RESPIRATORY: No accessory muscle use. Diminished in the bases bilateral. GASTROINTESTINAL: Abdomen soft obese, no rebound tenderness. MUSCULOSKELETAL: No obvious deformities. No clubbing. No cyanosis. Pitting edema the lower extremities noted, right leg is slightly larger than the left to mid-tibia NEUROLOGICAL: Awake and alert. No obvious cranial nerve deficits. Motor grossly within normal limits. Normal speech. PSYCHIATRIC: Appropriate mood and affect; insight and judgment normal. . Laboratory Laboratory Tests Test 05/21/16 05/21/16 11:30 17:20 White Blood Count 7.4 Red Blood Count 4.14 Hemoglobin 13.5 Hematocrit 38.6 Mean Corpuscular Volume 93.4 Mean Corpuscular Hemoglobin 32.6 Mean Corpuscular Hemoglobin 35.0 Concent Red Cell Distribution Width 15.4 Platelet Count 382 Mean Platelet Volume 6.2 Neutrophils (%) (Auto) 85.5 Lymphocytes (%) (Auto) 8.5 Monocytes (%) (Auto) 5.0 Eosinophils (%) (Auto) 0.6 Basophils (%) (Auto) 0.4 Neutrophils # (Auto) 6.4 Lymphocytes # (Auto) 0.6 Monocytes # (Auto) 0.4 Eosinophils # (Auto) 0.0 Basophils # (Auto) 0.0 CBC Comment AUTO DIFF Differential Total Cells 100 Counted Neutrophils % (Manual) 75 Band Neutrophils % 5 Lymphocytes % 9 Monocytes % 7 Eosinophils % 1 Neutrophils # (Manual) 6.1 Metamyelocytes 1 Myelocytes 2 Differential Comment FINAL DIFF MANUAL Platelet Estimate HIGH Platelet Morphology Comment NORMAL Prothrombin Time 11.3 Prothromb Time International 1.0 Ratio Activated Partial 26.1 Thromboplast Time Sodium Level 137 Potassium Level 4.2 Chloride Level 102 Carbon Dioxide Level 26.7 Anion Gap 8 Blood Urea Nitrogen 11 Creatinine 0.87 Estimat Glomerular Filtration 87 Rate Random Glucose 102 Calcium Level 9.1 Magnesium Level 2.2 Total Bilirubin 0.5 Aspartate Amino Transf 26 (AST/SGOT) Alanine Aminotransferase 42 (ALT/SGPT) Alkaline Phosphatase 68 Total Creatine Kinase 59 49 Troponin I LESS THAN 0.02 LESS THAN 0.02 B-Type Natriuretic Peptide 749 Total Protein 7.5 Albumin 3.3 Result Diagram: 05/21/16 1130 05/21/16 1130 Imaging Last 48 hours Impressions Chest X-Ray 05/21/16 1117 Signed Impressions: Service Date/Time: Saturday, May 21, 2016 12:12 - CONCLUSION: 1. Chronic elevation of the right hemidiaphragm. 2. No acute focal pulmonary infiltrate or pulmonary vascular congestion. Rigoberto Castro MD Lower Extremity Ultrasound 05/21/16 0000 Signed Impressions: Service Date/Time: Saturday, May 21, 2016 11:37 - CONCLUSION: No evidence of deep venous thrombosis within the right lower extremity. Rigoberto Castro MD Assessment and Plan Assessment and Plan 71M [place] patient with history of atrial flutter, poor historian so unknown medication history, admitted for symptomatic atrial flutter, COPD exacerbation, and chest pain work-up Problem List: (1) Atrial flutter with rapid ventricular response Status: Acute Plan: Cardiology consulted - appreciate recommendations - Continue IV cardizem - Started on amiodarone per cardiology - Anticoagulation with Eliquis Monitor on telemetry Continue to cycle cardiac enzymes Supplemental oxygen as needed - Given digoxin 0.5 mg x1 in the ED (2) COPD exacerbation Status: Acute Plan: Supplemental oxygen as needed - Duonebs [id number] prn wheezing - Prednisone 40mg po daily - given solumedrol 125mg IV x1 in the ED No increased sputum production, cough, or fevers - No indication for abx at this time (3) Congestive heart failure Status: Acute Plan: Lasix 20mg IV x1 given in the ED - Continue Lasix 20mg IV daily Monitor daily Is'Os Monitor daily weights Low sodium diet Fluid restriction to 1.5L Supplemental oxygen as needed Cycle cardiac enzymes BNP on arrival 749 Echocardiogram done on 04/26/16 showing EF of 50-55% without regional wall motion abnormality (4) Hypertension Status: Acute Plan: Unsure of home medications - Currently on cardizem drip and to be started on amiodarone Will increase anti-hypertensive regimen as needed (5) Tobacco abuse Status: Acute Plan: Recommend tobacco cessation (6) Alcohol abuse Status: Acute Plan: [facility] protocol Physician Certification 2 Midnight Certification Type: Admission for Inpatient Services Order for Inpatient Services The services are ordered in accordance with Medicare regulations or non- Medicare payer requirements, as applicable. In the case of services not specified as inpatient-only, they are appropriately provided as inpatient services in accordance with the 2-midnight benchmark. Estimated LOS (days): 2 2 days is the estimated time the patient will need to remain in the hospital, assuming treatment plan goals are met and no additional complications. Post-Hospital Plan: Not yet determined Problem Qualifiers (1) Congestive heart failure: Qualified Code: I50.9 - Congestive heart failure, unspecified congestive heart failure chronicity, unspecified congestive heart failure type Taco Alejandro MD May 21, 2016 21:53
[2016-05-21] MEDS ORDERED: ENALAPRILAT 1.25 MG/ML VIAL IV PUSH PRN (22:00)
[2016-05-22] VITALS (31 sets, daily range): BP systolic 120–164; BP diastolic 77–95; PULSE 74–130; RESP 20–24; TEMP 97.9–98.4; O2SAT 98–100
--- NOTE | 2016-05-22 00:23 | HHI.FPPN ---
Addendum to progress note ADDENDUM Reason for addendum: Additonal documentation Additional information Resident's received a page at 11:53 PM from patient's nurse stating that he was very short of breath with increased work of breathing. He was on 2 L oxygen by nasal cannula with 100% O2 saturation, and heart rate in the 90s. We stopped by to see the patient who stated that he was not having chest pain, only chest discomfort. He does not use oxygen at home - he was [facility] but [facility]. Exam: General: Gentleman of stated age, appears in moderate respiratory distress Cardiovascular: Tachycardic rate, regular rhythm Respiratory: Diminished at lung bases, difficult to auscultate due to upper respiratory sounds from patient's increased work of breathing CHEST: Increased work of breathing with use of accessory shoulder muscles MSK: 1+ pitting pretibial edema, worse on the right lower extremity Plan -Start BiPAP -Stat ABG -Lasix 20 mg IV 1 -Fluid restriction to 1800 mL daily -Strict I's and O's -Ativan 0.5 mg 1 to calm him down because he gets very claustrophobic with a mask Seen and examined with Dr. Lila Lundberg,Xenia Fierro MD R1 May 22, 2016 00:23
[2016-05-22] MEDS ORDERED: FUROSEMIDE 20 MG/2 ML VIAL IV PUSH ONE (00:30)
[2016-05-22] MEDS ORDERED: LORazepam 2 MG/ML VIAL IV PUSH ONE (00:30)
[2016-05-22 00:41] LABS: BLOOD GAS BASE EXCESS 0.7 mmol/L (-2-2); BLOOD GAS CARBOXYHEMOGLOBIN 2.6 % (0-4); BLOOD GAS HCO3 26 mmol/L (22-26); BLOOD GAS O2 HGB SATURATION 95 % (90-100); BLOOD GAS OXYGEN CONTENT 22.1 Vol % (12.0-20.0); BLOOD GAS PCO2 52 mmHg (38-42); BLOOD GAS PO2 125 mmHg (61-120); BLOOD GAS TOTAL HGB 16.5 G/DL (12.0-16.0); CRITICAL VALUE YES; OXYGEN DEVICE NASAL CANNULA; TEMP CORR TO 98.6
[2016-05-22 00:42] LABS: DRAW SITE RT RADIAL; LITER FLOW 2 L/M; NUMBER OF ARTERIAL PUNCTURES 1; STAT YES; ULNAR PULSE PRESENT
[2016-05-22 01:38] LABS: CREATINE KINASE 57 U/L (39-308)
[2016-05-22] MEDS: RESP: ALBUTEROL 2.5 MG/IPRATROPIUM 0.5 MG NEB (SCH) INH ×3 (04:24→20:36)
[2016-05-22 06:14] LABS: AUTOMATED NEUTROPHIL # 5.2 TH/MM3 (1.8-7.7); BASOPHIL % 0.8 % (0.0-2.0); HEMATOCRIT 36.6 % (39.0-51.0); LYMPH % 9.1 % (9.0-44.0); LYMPHOCYTE # 0.5 TH/MM3 (1.0-4.8); MEAN CELL VOLUME 93.2 FL (80.0-100.0); MEAN CORPUSCULAR HEMOGLOBIN 32.2 PG (27.0-34.0); MEAN CORPUSCULAR HGB CONC 34.5 % (32.0-36.0); MONO % 2.2 % (0.0-8.0); NEUT % 87.9 % (16.0-70.0); PLATELET COUNT 310 TH/MM3 (150-450); RED BLOOD COUNT 3.93 MIL/MM3 (4.50-5.90); RED CELL DISTRIBUTION WIDTH 15.5 % (11.6-17.2); WHITE BLOOD COUNT 5.9 TH/MM3 (4.0-11.0)
[2016-05-22 06:27] LABS: HEMO FLAGS AUTO DIFF
[2016-05-22 06:40] LABS: ALKALINE PHOSPHATASE 60 U/L (45-117); ALT (GPT) 34 U/L (12-78); ANION GAP 7 MEQ/L (5-15); AST (GOT) 14 U/L (15-37); BICARBONATE 31.5 MEQ/L (21.0-32.0); BLOOD UREA NITROGEN 19 MG/DL (7-18); CHLORIDE 99 MEQ/L (98-107); GLOMERULAR FILTRATION RATE 90 ML/MIN (>89); POTASSIUM 4.2 MEQ/L (3.5-5.1); SODIUM (NA) 137 MEQ/L (136-145); TOTAL BILIRUBIN ADULT 0.4 MG/DL (0.2-1.0)
[2016-05-22 08:03] LABS: BANDS 7 % (0-6); NEUTROPHIL # MANUAL DIFF 5.2 TH/MM3 (1.8-7.7); PLATELET ESTIMATE SMEAR NORMAL (NORMAL); PLATELET MORPHOLOGY NORMAL (NORMAL); POLYS (SEG NEUTROPHILS) 81 % (16-70); SCAN/DIFF FINAL DIFF MANUAL; WBC DIFF SAMPLE 100
--- NOTE | 2016-05-22 08:22 | PD.CARD.PN ---
Subjective Subjective Remarks Dyspnea improving. No CP, dizziness, near syncope. Slept well. Minimal occasional palpitations. Objective Medications Item Value Date Time Lisinopril 10 mg 05/22/16 0900 (Prinivil) DAILY/PO Aspirin 162 mg 05/22/16 0900 (Ecotrin Ec) DAILY/PO Apixaban 5 mg 05/21/16 2100 (Eliquis) BID/PO 05/21/162042 Amiodarone HCl 250 ml @ 0 mls/hr 05/21/16 1600 450 mg/Dextrose CONTINUOUS/IV 05/21/16 1837 Diltiazem HCl 125 125 ml @ 0 mls/hr 05/21/16 1130 mg/Sodium Chloride TITRATE/IV 05/21/16 1232 Vital Signs / I&O Vital Signs Date Time Temp Pulse Resp B/P Pulse Ox O2 Delivery O2 Flow Rate FiO2 05/22/16 08:13 98 Nasal Cannula 2.00 05/22/16 07:00 97.9 78 20 150/95 05/22/16 06:00 97 05/22/16 05:00 78 05/22/16 04:00 77 05/22/16 03:00 99 25 05/22/16 03:00 96 05/22/16 03:00 98.1 74 22 120/80 99 05/22/16 02:56 99 25 05/22/16 02:00 78 05/22/16 01:00 78 05/22/16 00:25 98 25 05/22/16 00:15 100 Bi-Pap 25 05/22/16 00:00 80 05/21/16 23:00 99 Nasal Cannula 2.00 05/21/16 23:00 98.0 111 28 147/93 99 05/21/16 23:00 79 05/21/16 22:00 81 05/21/16 21:09 99 Nasal Cannula 2.00 05/21/16 21:00 82 05/21/16 20:00 82 05/21/16 19:00 97.9 85 28 136/82 97 05/21/16 19:00 80 05/21/16 19:00 97 Nasal Cannula 2.00 05/21/16 18:38 85 22 145/67 99 Nasal Cannula 2 05/21/16 18:35 82 05/21/16 18:35 98.0 82 24 132/76 99 05/21/16 17:20 87 20 128/70 100 Nasal Cannula 2 05/21/16 15:45 87 20 165/81 99 Nasal Cannula 2 05/21/16 14:20 87 20 165/81 100 Nasal Cannula 2 05/21/16 13:21 100 Nasal Cannula 2.00 05/21/16 13:14 125 20 129/80 100 Nasal Cannula 2 05/21/16 12:36 90 20 150/84 100 Nasal Cannula 2 05/21/16 11:30 88 20 146/85 100 Nasal Cannula 2 05/21/16 11:28 169 20 100 Nasal Cannula 05/21/16 11:26 89 20 141/81 100 Nasal Cannula 2 05/21/16 11:26 20 100 Nasal Cannula 2 05/21/16 11:26 100 Nasal Cannula 2 05/21/16 11:26 88 20 141/81 100 Nasal Cannula 2 05/21/16 11:10 99.0 169 20 166/105 100 I/O 05/21/16 05/21/16 05/21/16 05/22/16 05/22/16 05/22/16 07:00 15:00 23:00 07:00 15:00 23:00 Intake Total 1900 ml Output Total 380 ml 1280 ml 2650 ml Balance -380 ml -1280 ml -750 ml Intake Oral 1200 ml IV Total 700 ml Output Urine Total 380 ml 1280 ml 2650 ml # Voids 1 3 # Bowel Movements 0 Physical Exam GENERAL: Well developed, well nourished. No acute distress. HEENT: Jugular venous pressure is normal. CHEST: Lungs clear to auscultation bilaterally. Diminished breath sounds right base. CARDIAC: Irregular rate and rhythm without S3, S4, or murmur. ABDOMEN: Soft, nontender, no hepatosplenomegaly. Bowel sounds present. EXTREMITIES: No clubbing, cyanosis, or edema. Laboratory Laboratory Tests Test 05/21/16 05/21/16 05/22/16 05/22/16 11:30 17:20 00:08 00:29 White Blood Count 7.4 TH/MM3 Red Blood Count 4.14 MIL/MM3 Hemoglobin 13.5 GM/DL Hematocrit 38.6 % Mean Corpuscular Volume 93.4 FL Mean Corpuscular Hemoglobin 32.6 PG Mean Corpuscular Hemoglobin 35.0 % Concent Red Cell Distribution Width 15.4 % Platelet Count 382 TH/MM3 Mean Platelet Volume 6.2 FL Neutrophils (%) (Auto) 85.5 % Lymphocytes (%) (Auto) 8.5 % Monocytes (%) (Auto) 5.0 % Eosinophils (%) (Auto) 0.6 % Basophils (%) (Auto) 0.4 % Neutrophils # (Auto) 6.4 TH/MM3 Lymphocytes # (Auto) 0.6 TH/MM3 Monocytes # (Auto) 0.4 TH/MM3 Eosinophils # (Auto) 0.0 TH/MM3 Basophils # (Auto) 0.0 TH/MM3 CBC Comment AUTO DIFF Differential Total Cells 100 Counted Neutrophils % (Manual) 75 % Band Neutrophils % 5 % Lymphocytes % 9 % Monocytes % 7 % Eosinophils % 1 % Neutrophils # (Manual) 6.1 TH/MM3 Metamyelocytes 1 % Myelocytes 2 % Differential Comment FINAL DIFF MANUAL Platelet Estimate HIGH Platelet Morphology Comment NORMAL Prothrombin Time 11.3 SEC Prothromb Time International 1.0 RATIO Ratio Activated Partial 26.1 SEC Thromboplast Time Sodium Level 137 MEQ/L Potassium Level 4.2 MEQ/L Chloride Level 102 MEQ/L Carbon Dioxide Level 26.7 MEQ/L Anion Gap 8 MEQ/L Blood Urea Nitrogen 11 MG/DL Creatinine 0.87 MG/DL Estimat Glomerular Filtration 87 ML/MIN Rate Random Glucose 102 MG/DL Calcium Level 9.1 MG/DL Magnesium Level 2.2 MG/DL Total Bilirubin 0.5 MG/DL Aspartate Amino Transf 26 U/L (AST/SGOT) Alanine Aminotransferase 42 U/L (ALT/SGPT) Alkaline Phosphatase 68 U/L Total Creatine Kinase 59 U/L 49 U/L 57 U/L Troponin I LESS THAN 0.02 LESS THAN 0.02 LESS THAN 0.02 NG/ML NG/ML NG/ML B-Type Natriuretic Peptide 749 PG/ML Total Protein 7.5 GM/DL Albumin 3.3 GM/DL Blood Gas Puncture Site RT RADIAL Blood Gas Patient Temperature 98.6 Blood Gas HCO3 26 mmol/L Blood Gas Base Excess 0.7 mmol/L Blood Gas Oxygen Saturation 95 % Arterial Blood pH 7.32 Arterial Blood Partial 52 mmHg Pressure CO2 Arterial Blood Partial 125 mmHg Pressure O2 Arterial Blood Oxygen Content 22.1 Vol % Arterial Blood 2.6 % Carboxyhemoglobin Arterial Blood Methemoglobin 1.0 % Blood Gas Hemoglobin 16.5 G/DL Oxygen Delivery Device NASAL CANNULA Blood Gas Liter Flow 2 L/M Test 05/22/16 05:30 White Blood Count 5.9 TH/MM3 Red Blood Count 3.93 MIL/MM3 Hemoglobin 12.7 GM/DL Hematocrit 36.6 % Mean Corpuscular Volume 93.2 FL Mean Corpuscular Hemoglobin 32.2 PG Mean Corpuscular Hemoglobin 34.5 % Concent Red Cell Distribution Width 15.5 % Platelet Count 310 TH/MM3 Mean Platelet Volume 6.4 FL Neutrophils (%) (Auto) 87.9 % Lymphocytes (%) (Auto) 9.1 % Monocytes (%) (Auto) 2.2 % Eosinophils (%) (Auto) 0.0 % Basophils (%) (Auto) 0.8 % Neutrophils # (Auto) 5.2 TH/MM3 Lymphocytes # (Auto) 0.5 TH/MM3 Monocytes # (Auto) 0.1 TH/MM3 Eosinophils # (Auto) 0.0 TH/MM3 Basophils # (Auto) 0.0 TH/MM3 CBC Comment AUTO DIFF Differential Total Cells 100 Counted Neutrophils % (Manual) 81 % Band Neutrophils % 7 % Lymphocytes % 11 % Monocytes % 1 % Neutrophils # (Manual) 5.2 TH/MM3 Differential Comment FINAL DIFF MANUAL Platelet Estimate NORMAL Platelet Morphology Comment NORMAL Red Cell Morphology Comment NORMAL Sodium Level 137 MEQ/L Potassium Level 4.2 MEQ/L Chloride Level 99 MEQ/L Carbon Dioxide Level 31.5 MEQ/L Anion Gap 7 MEQ/L Blood Urea Nitrogen 19 MG/DL Creatinine 0.84 MG/DL Estimat Glomerular Filtration 90 ML/MIN Rate Random Glucose 136 MG/DL Calcium Level 8.5 MG/DL Total Bilirubin 0.4 MG/DL Aspartate Amino Transf 14 U/L (AST/SGOT) Alanine Aminotransferase 34 U/L (ALT/SGPT) Alkaline Phosphatase 60 U/L Total Protein 6.5 GM/DL Albumin 2.8 GM/DL Thyroid Stimulating Hormone 0.497 uIU/ML 3rd Gen Assessment and Plan Problem List: (1) Paroxysmal atrial flutter Assessment and Plan: Remains in atrial flutter, controlled HR's on IV Amiodarone/IV Cardizem. No evidence for ACS or CHF. LV function normal by recent echo. REC continue IV Amiodarone and Eliquis, can stop aspirin while on Eliquis try to change Cardizem to po (2) Hypertension Assessment and Plan: Fluctuating BP's. Cont to monitor. Consider increasing Lisinopril dose. Code Status full code Discussed Condition With patient Problem Qualifiers (1) Hypertension: Qualified Code: I10 - Essential hypertension Dalton Leach MD May 22, 2016 08:22
[2016-05-22] MEDS ORDERED: AMIODARONE INJ 150 MG in DEXTROSE 5% IN WATER 100ML INJ 97 ML IV ONE ×2 (08:30)
[2016-05-22] MEDS ORDERED: methylPREDNISolone SOD SUCC 125 MG/2 ML VIAL IV PUSH SCH (09:00)
[2016-05-22] MEDS ORDERED: DILTIAZEM-CD 240 MG CAP ER PO SCH (09:00)
[2016-05-22] MEDS ORDERED: ASPIRIN EC 81 MG TABEC PO SCH (09:00)
[2016-05-22] MEDS ORDERED: predniSONE 20 MG TAB PO SCH (09:00)
--- NOTE | 2016-05-22 09:17 | EKG ---
Date Performed: 05/22/2016 Time Performed: 05:59:16 PTAGE: 71 years EKG: Atrial flutter with 4:1 A-V block Inferior ST elevation suggests early repolarization Abnor mal ECG PREVIOUS TRACING : 05/21/2016 20.17 DOCTOR: Olvin Barbosa Interpretating Date/Time 05/22/2016 09:16:19
[2016-05-22] MEDS: APIXABAN 5 MG TABLET PO SCH ×2 (09:29→21:00)
[2016-05-22] MEDS: PANTOPRAZOLE SOD 40 MG DELAYED RELEASE TAB PO SCH (09:30)
[2016-05-22] MEDS: busPIRone HCL 5 MG TAB PO SCH ×3 (09:30→17:15)
[2016-05-22] MEDS: LISINOPRIL 10 MG TAB PO SCH (09:30)
[2016-05-22] MEDS: guaiFENesin SOLUTION 200 MG/10 ML CUP PO SCH ×4 (09:32→21:00)
[2016-05-22] MEDS: THIAMINE HCL 100 MG TAB PO SCH (09:32)
[2016-05-22] MEDS: NICOTINE 21 MG/24 HR PATCH TD SCH (09:33)
[2016-05-22] MEDS: BUDESONIDE-FORMOTEROL 160/4.5 MCG INHALER INH SCH ×2 (09:34→21:00)
[2016-05-22] MEDS: TIOTROPIUM BROMIDE 18 MCG INH INH SCH (09:35)
[2016-05-22] MEDS: SODIUM CHLORIDE 0.9% FLUSH 10 ML FLUSH IV FLUSH SCH ×2 (09:35→21:00)
--- NOTE | 2016-05-22 09:47 | EKG ---
Date Performed: 05/21/2016 Time Performed: 20:17:18 PTAGE: 71 years EKG: Atrial flutter with 4:1 A-V block Inferior ST elevation, CONSIDER ACUTE INFARCT Low QRS vol tages in precordial leads Abnormal ECG PREVIOUS TRACING : 05/21/2016 12.51 DOCTOR: Olvin Barbosa Interpretating Date/Time 05/22/2016 09:46:25
[2016-05-22] MEDS ORDERED: DIGOXIN 0.5 MG/2 ML VIAL IV PUSH ONE (11:00)
--- NOTE | 2016-05-22 11:09 | EKG ---
Date Performed: 05/21/2016 Time Performed: 12:51:23 PTAGE: 71 years EKG: ATRIAL FLUTTER/TACHYCARDIA LOW QRS VOLTAGE IN PRECORDIAL LEADS ABNORMAL RHYTHM ECG PREVIOUS TRACING : 05/21/2016 11.24 DOCTOR: Olvin Barbosa Interpretating Date/Time 05/22/2016 11:07:09
--- NOTE | 2016-05-22 11:20 | EKG ---
Date Performed: 05/21/2016 Time Performed: 11:17:20 PTAGE: 71 years EKG: ATRIAL FLUTTER NONSPECIFIC ST T ABNORMALITY PREVIOUS TRACING : 04/26/2016 22.50 DOCTOR: Olvin Barbosa Interpretating Date/Time 05/22/2016 11:18:10
--- NOTE | 2016-05-22 11:20 | EKG ---
Date Performed: 05/21/2016 Time Performed: 11:24:29 PTAGE: 71 years EKG: ATRIAL FLUTTER/TACHYCARDIA LOW QRS VOLTAGE IN PRECORDIAL LEADS ABNORMAL RHYTHM ECG PREVIOUS TRACING : 05/21/2016 11.17 DOCTOR: Olvin Barbosa Interpretating Date/Time 05/22/2016 11:17:25
--- NOTE | 2016-05-22 12:10 | HHI.FPPN ---
Subjective Remarks Overnight events: Patient had increased respiratory distress and respiratory rate. He stated he was having to breathing. His O2 sat was in 100% range at this time. He was placed on BiPAP but this made him anxious. He received 0.5 mg IV Xanax which she states did not help much. Since he has been in the hospital he reports no significant improvement in his symptoms. He continues to be unable to walk around without difficulty breathing. He just had his breathing treatment this morning and states did not really help much. He has been urinating with the diuresis therapy and states that he feels the need to have a bowel movement now but cannot get up on his own. (Cammy Bettencourt MD R1) Objective Vitals Vital Signs Date Time Temp Pulse Resp B/P Pulse Ox O2 Delivery O2 Flow Rate FiO2 05/22/16 11:10 98.4 101 22 140/95 98 05/22/16 11:10 123 05/22/16 10:00 130 05/22/16 09:00 124 05/22/16 08:13 98 Nasal Cannula 2.00 05/22/16 08:00 108 05/22/16 07:00 Nasal Cannula 2.00 05/22/16 07:00 79 05/22/16 07:00 97.9 78 20 150/95 98 05/22/16 06:00 97 05/22/16 05:00 78 05/22/16 04:00 77 05/22/16 03:00 99 25 05/22/16 03:00 96 05/22/16 03:00 98.1 74 22 120/80 99 05/22/16 02:56 99 25 05/22/16 02:00 78 05/22/16 01:00 78 05/22/16 00:25 98 25 05/22/16 00:15 100 Bi-Pap 25 05/22/16 00:00 80 05/21/16 23:00 99 Nasal Cannula 2.00 05/21/16 23:00 98.0 111 28 147/93 99 05/21/16 23:00 79 05/21/16 22:00 81 05/21/16 21:09 99 Nasal Cannula 2.00 05/21/16 21:00 82 05/21/16 20:00 82 05/21/16 19:00 97.9 85 28 136/82 97 05/21/16 19:00 80 05/21/16 19:00 97 Nasal Cannula 2.00 05/21/16 18:38 85 22 145/67 99 Nasal Cannula 2 05/21/16 18:35 82 05/21/16 18:35 98.0 82 24 132/76 99 05/21/16 17:20 87 20 128/70 100 Nasal Cannula 2 05/21/16 15:45 87 20 165/81 99 Nasal Cannula 2 05/21/16 14:20 87 20 165/81 100 Nasal Cannula 2 05/21/16 13:21 100 Nasal Cannula 2.00 05/21/16 13:14 125 20 129/80 100 Nasal Cannula 2 05/21/16 12:36 90 20 150/84 100 Nasal Cannula 2 I/O 05/21/16 05/21/16 05/21/16 05/22/16 05/22/16 05/22/16 07:00 15:00 23:00 07:00 15:00 23:00 Intake Total 1900 ml Output Total 380 ml 1280 ml 2650 ml Balance -380 ml -1280 ml -750 ml Intake Oral 1200 ml IV Total 700 ml Output Urine Total 380 ml 1280 ml 2650 ml # Voids 1 3 # Bowel Movements 0 (Cammy Bettencourt MD R1) Result Diagram: 05/22/16 0530 05/22/16 0530 Imaging Last Impressions Chest X-Ray 05/21/16 1117 Signed Impressions: Service Date/Time: Saturday, May 21, 2016 12:12 - CONCLUSION: 1. Chronic elevation of the right hemidiaphragm. 2. No acute focal pulmonary infiltrate or pulmonary vascular congestion. Rigoberto Castro MD Lower Extremity Ultrasound 05/21/16 0000 Signed Impressions: Service Date/Time: Saturday, May 21, 2016 11:37 - CONCLUSION: No evidence of deep venous thrombosis within the right lower extremity. Rigoberto Castro MD Objective Remarks GENERAL: Well developed, well-nourished elderly male. Negative Levines sign. Not diaphoretic. Not anxious appearing on 2 L nasal cannula EYES: PERRLA. EOMI. Lids and conjunctivae reveal no gross abnormality. No scleral icterus. ENT: Hearing adequate. Head NCAT. MMM. OP/OC clear. No cervical or supraclavicular LAD. NECK: No JVD. No carotid bruits. Neck supple, no masses. Trachea midline. No thyromegaly. RESPIRATORY: No evidence of pulmonary edema. Respiratory rate approximately 25. Poor air movement in the lower lung chen. Wheezes audible without stethoscope. CARDIOVASCULAR: Irregularly irregular rhythm. Heart rate is 90s on telemetry. Radial and DP pulses 2+ and symmetric bilaterally. Brisk capillary refill. ABDOMEN: S/NT/ND. Bowel sounds present in all quadrants. No masses or pulsations present. EXTREMITIES: Lower extremities notable for 2+ edema to the reilly, right slightly worse than left. No clubbing, cyanosis, or erythema. MUSCULOSKELETAL: No obvious bony deformities or joint pain. Strength 5/5 in upper and lower extremities. No calf tenderness. SKIN: No evidence of cellulitis, ecchymoses. Adequate skin turgor. NEUROLOGICAL: Awake and alert. No obvious cranial nerve deficits. Motor grossly within normal limits. Five out of 5 muscle strength in the arms and legs. Normal speech. PSYCHIATRIC: Appropriate mood and affect; insight and judgment normal. Medications and IVs Inpatient Medications Acetaminophen (Tylenol) 650 mg Q4H PRN PO PAIN 1-10 AND/OR FEVER >101F; Start 05/21/16 at 21:45 Albuterol/ Ipratropium (Duoneb Neb) 1 ampule Q6HR NEB INH Last administered on 05/22/16 04:24; Start 05/21/16 at 16:00 Amiodarone HCl 150 mg/Dextrose 100 ml @ 600 mls/hr ONCE ONCE IV Last administered on 05/21/16 18:00; Start 05/21/16 at 16:00; Stop 05/21/16 at 16:09 ; Status DC Amiodarone HCl/ Dextrose (Cordarone Inj/ D5W ([place]) Inj) 250 ml @ 0 mls/hr CONTINUOUS IV Last administered on 05/21/16 18:37; Start 05/21/16 at 16:00; Stop 05/24/16 at 15:00 Amiodarone HCl/ Dextrose (Cordarone Inj/ D5W 100 ml Inj) 100 ml @ 600 mls/hr ONCE ONCE IV Last administered on 05/22/16 09:11; Start 05/22/16 at 08:30; Stop 05/22/16 at 08:39; Status DC Apixaban 5 mg 5 mg BID PO Last administered on 05/22/16 09:29; Start 05/21/16 at 21:00 Aspirin (Aspirin Chew) 162 mg ONCE ONCE PO Last administered on 05/21/16 11: 37; Start 05/21/16 at 11:30; Stop 05/21/16 at 11:31; Status DC Aspirin (Ecotrin Ec) 162 mg DAILY PO ; Start 05/22/16 at 09:00; Stop 05/22/16 at 09:00; Status DC Azithromycin (Zithromax) 250 mg DAILY PO ; Start 05/22/16 at 17:00 Budesonide/ Formoterol Fumarate (Symbicort 160-4.5 Inh) 2 puff Q12HR INH Last administered on 05/22/16 09:34; Start 05/22/16 at 09:00 Buspirone HCl (Buspar) 5 mg TID PO Last administered on 05/22/16 09:30; Start 05/22/16 at 09:00 Digoxin (Lanoxin Inj) 0.5 mg NOW ONCE IV PUSH Last administered on 05/22/16 11:11; Start 05/22/16 at 11:00; Stop 05/22/16 at 11:01; Status DC Diltiazem HCl (Cardizem Inj) 25 mg ONCE ONCE IV Last administered on 11:36; Start 05/21/16 at 11:30; Stop 05/21/16 at 11:31; Status DC Diltiazem HCl 240 mg 240 mg DAILY PO Last administered on 05/22/16 09:29; Start 05/22/16 at 09:00 Diltiazem HCl/ Sodium Chloride (Cardizem Inj/NS Inj) 125 ml @ 0 mls/hr TITRATE IV Last administered on 05/21/16 12:32; Start 05/21/16 at 11:30; Stop at 08:24; Status DC Enalaprilat (Vasotec Inj) 1.25 mg Q8H PRN IV PUSH SBP>180, DBP>100; Start at 22:00 Enoxaparin Sodium (Lovenox Inj) 40 mg Q24H SQ Last administered on 05/21/16 15 :51; Start 05/21/16 at 15:00; Stop 05/21/16 at 16:02; Status DC Flumazenil (Romazicon Inj) 0.2 mg Q1M PRN IV PUSH SEE LABEL COMMENTS; Start at 14:15 Furosemide (Lasix Inj) 20 mg ONCE ONCE IV PUSH Last administered on 05/22/16 01:24; Start 05/22/16 at 00:30; Stop 05/22/16 at 00:31; Status DC Guaifenesin (Robitussin Liq) 200 mg QID PO Last administered on 05/22/16 09:32 ; Start 05/22/16 at 09:00 IV Flush (NS Flush) 2 ml UNSCH PRN IVF FLUSH AFTER USING IV ACCESS; Start 05/21 at 11:30; Stop 05/21/16 at 14:20; Status DC Lisinopril (Prinivil) 10 mg DAILY PO Last administered on 05/22/16 09:30; Start 05/22/16 at 09:00 Lorazepam (Ativan Inj) 0.5 mg ONCE ONCE IV PUSH Last administered on 01:24; Start 05/22/16 at 00:30; Stop 05/22/16 at 00:31; Status DC Lorazepam (Ativan) 2 mg Q2H PRN PO CIWA 11-14; Start 05/21/16 at 14:15 Methylprednisolone Sodium Succinate (SoluMEDROL INJ) 125 mg DAILY IV PUSH Last administered on 05/22/16 09:32; Start 05/22/16 at 09:00 Miscellaneous Information 1 HS TD ; Start 05/22/16 at 21:00 Naloxone HCl (Narcan Inj) 0.4 mg UNSCH PRN IV SEE LABEL COMMENTS; Start at 14:15 Nicotine (Habitrol 21 Mg Patch.24 Hr) 1 patch DAILY TD Last administered on 09:33; Start 05/22/16 at 09:00 Nitroglycerin (Nitroglycerin 2% Oint) 1 inch ONCE ONCE TOP Last administered on 05/21/16 12:32; Start 05/21/16 at 11:30; Stop 05/21/16 at 16:02; Status DC Ondansetron HCl (Zofran Inj) 4 mg Q6H PRN IVP NAUSEA OR VOMITING; Start at 14:15 Pantoprazole Sodium (Protonix) 40 mg DAILY PO Last administered on 05/22/16 09 :30; Start 05/22/16 at 09:00 Prednisone (Deltasone) 40 mg DAILY PO ; Start 05/22/16 at 09:00; Stop 05/22/16 at 09:00; Status DC Sodium Chloride (NS Flush) 2 ml BID IV FLUSH Last administered on 05/22/16 09: 35; Start 05/21/16 at 21:00 Thiamine HCl (Vitamin B1) 100 mg DAILY PO Last administered on 05/22/16 09:32 ; Start 05/22/16 at 09:00 Tiotropium [place] (Spiriva Inh) 18 mcg DAILY INH Last administered on 09:35; Start 05/22/16 at 09:00 (Cammy Bettencourt MD R1) A/P Assessment and Plan 71M [facility] patient with history of atrial flutter, poor historian so unknown medication history, admitted for symptomatic atrial flutter, COPD exacerbation, and chest pain work-up Discharge Planning Pending clinical improvement (Cammy Bettencourt MD R1) Attending Attestation Pt. examined and case discussed with resident physician I have read the above note and agree with the assessment/plan as discussed with me I was involved in all medical decision making for this patient Taco Alejandro MD (Taco Alejandro MD) Problem List: (1) COPD exacerbation Status: Acute Plan: DDx includes COPD exacerbation, CHF exacerbation, pneumonia, asthma attack, [place], PE. -Pt. has a PMH significant for smoking. Pt. not on home O2. -WBC 7.4, neutrophil 75, not clearly indicative of infection but this cannot be ruled on. CBC on repeat showing leukopenia, to monitor -EKG showing afib as discussed elsewhere. BNP 749. Bicarb not elevated. -CXR showed chronic elevation of the right hemidiaphragm. -Re: possibility of PE, Wells score is 1.5. However, given no clinical improvement, will order D dimer 05/22 -Pulmonology consult to assist in medical management of symptoms -Treat with Supplemental O2 to maintain sats above 90%. Encourage pt. to get OOB and ambulate. -Duonebs q6 hrs scheduled increased to q4hr. Will alternate with Albuterol q4hr so that he is getting treatments every 2 hours. Note that these treatments may cause tachycardia -Pt. rec'd Solu-Medrol 125 mg IV 1 in the ED, to continue -Lasix 20 mg IV 1 given in ED. We'll give 40 mg IV today and continue as needed -Protonix 40 mg PO daily for GI protection and decr. chances of aspiration pneumonia. -Azithromycin 500 mg PO 1, then 250 mg PO q24 hrs (x 5-7 days). Tylenol PRN. -Add Rocephin 05/22 -Mucinex 600 mg tab PO BID PRN congestion. -dextromethorphan PRN cough. -Should administer flu vaccine and Pneumovax. -Incentive spirometer. DISPO: -Discharge pending clinical improvement -Plan for pt to have a total of 5 day course of Azithro. Plan to also send pt. with COPD meds and a 2 week steroid taper to decrease the chances of another flare-up. -Consider eval. for home O2 therapy prior to d/c. CM assisting. -Pt. will need f/u with PCP and with grade and center marker as an outpatient. (2) Congestive heart failure Status: Acute Plan: Possible exacerbation. Plan as above COPD exacerbation. BNP is notable to be 749 this admission, was 339 one month ago. Per patient. Patient has a BNP of 749 today. However, on echocardiogram EF 5055 % in April 2016, normal systolic function, normal wall thickness, normal wall motion without any regional wall motion abnormalities. Normal pulmonary artery pressure. He does have 2+ edema of the lower extremities. -Elevate legs, SCDs -Trend troponin, EKG, CK -Lasix 20 mg IV 1 given in ED, 1660 ml UOP documented -Lasix 40mg IV x 1 in AM to encourage diuresis (3) Atrial flutter with rapid ventricular response Status: Acute Plan: Diagnosed April 2016. Discharge from the hospital on Cardizem 240 mg daily and Eliquis is 5 mg daily. Unclear whether the patient was taking these medications. In ED, required multiple IV medications to control rate, which was originally in the 170s reported by [facility]. Rate is currently in the 80s-90s. Adenosine 2, Cardizem 2, digoxin 1 administered. Cardizem drip was initiated in the ED. -Cardiology consulted, placed patient on amiodarone drip, restarted Eliquis. Patient required additional boluses of Cardizem and digoxin on 05/21 per cardiology (4) Hypertension Status: Chronic Plan: BP 140s-160s SBP on admission Continue home dose lisinopril 10 mg daily Vasotec 0.125mg IV q8h PRN SBP>180, DBP>100 (5) Tobacco abuse Status: Acute Plan: Nicotine patch (6) Alcohol abuse Status: Acute Plan: CIWA protocol (7) Fluids/Electrolytes/Nutrition/Prophylaxis Status: Acute Plan: Fluids: Caution IVF given fluid overloaded Electrolytes: monitor and replete as needed Nutrition: heart-healthy diet DVT Prophylaxis: Lovenox 40mg subQ q24hr/bilateral SCDs GI Prophylaxis: Protonix 40mg PO daily (Cammy Bettencourt MD R1) Problem Qualifiers (1) Congestive heart failure: Qualified Code: I50.9 - Congestive heart failure, unspecified congestive heart failure chronicity, unspecified congestive heart failure type (2) Hypertension: Qualified Code: I10 - Essential hypertension Cammy Bettencourt MD R1 May 22, 2016 12:10 Taco Alejandro MD May 22, 2016 21:59
[2016-05-22] MEDS ORDERED: RESP: ALBUTEROL 2.5 MG/IPRATROPIUM 0.5 MG NEB (SCH) INH (12:35)
[2016-05-22] MEDS: LORazepam 2 MG/ML VIAL IV PUSH PRN (13:41)
[2016-05-22] MEDS: methylPREDNISolone SOD SUCC 125 MG/2 ML VIAL IVP SCH ×2 (15:22→21:00)
[2016-05-22] MEDS: cefTRIAXone INJ 1,000 MG in SODIUM CHLORIDE 0.9% INJ 100 ML IV SCH (15:22)
[2016-05-22] MEDS: RESP: ALBUTEROL 2.5 MG/3 ML NEB (SCH) INH ×2 (15:49→20:00)
[2016-05-22] MEDS ORDERED: RESP: ALBUTEROL 2.5 MG/3 ML NEB (SCH) INH (16:00)
[2016-05-22 16:27] LABS: BLOOD, URINE NEG (NEG); COMMENT (UR) CULT NOT INDICATED; CULTURE IF INDICATED CULT NOT INDICATED; GLUCOSE,URINE NEG (NEG); KETONE, URINE NEG (NEG); MUCUS URINE FEW /lpf (OCC); NITRITE,URINE NEG (NEG); PH, URINE 5.5 (5.0-8.5); URINE COLOR YELLOW (YELLW/STRAW)
--- NOTE | 2016-05-22 16:35 | HHI.FPPN ---
Addendum to progress note ADDENDUM Reason for addendum: Additonal documentation Additional information Due to persistent tachypnea to 24 bpm, poor clinic picture overnight requiring BiPAP, and persistent tachycardia the patient was re-evaluated. He "feels the same" as when he got to the hospital. Not improving. Still feels tightness in his chest, that is worse with taking a deep breath. He denies any new productive sputum. He has been drinking 4-5 beers daily up until the day of hospitalization. He says, "I could be" withdrawing from alcohol. His code status was verified : full code including intubation. Exam: Tachypnea to 30 RR, 80 bpm, rate controlled, BP 140/80, AF. Desaturation to 84% when laying flat. GENERAL: Diaphoretic, using accessory muscles to breath and abdominal breathing. CV: S1 S2 wnl LUNGS: No aeration to right lower lung chen, rales at bases of left side. Diffuse wheezing. A/P: Problem 1: Resp Distress - continue NC O2 to goal > 90% Check VBG and D-dimer, if D-dimer is elevated will proceed to CTA of chest to r/ o PE Lasix 40 IV x 1 given orthopnea and rales on exam Aaron catheter to help monitor I&Os, fluid restriction Possible EtOH withdrawal, continue with CIWA protocol We have broadened antibiotic coverage with Azithro and Ceftriaxone to cover for CAP. BiPAP Peep 10 FiO2 50% prn resp distress increase frequency of breathing TX to scheduled duobnebs alt with albuterol q 4 hours. Sign out provided to night team. juventino Alejandro. Osvaldo Mccoy Dr., MD R2 May 22, 2016 16:35
[2016-05-22] MEDS ORDERED: FUROSEMIDE 40 MG/4 ML VIAL IV PUSH ONE (17:00)
[2016-05-22] MEDS: AZITHROMYCIN 250 MG TAB PO SCH (17:14)
[2016-05-22] MEDS: AMIODARONE INJ 450 MG in DEXTROSE 5% IN WATE(EXCEL) INJ 241 ML IV SCH ×2 (18:33)
[2016-05-22] MEDS: REMOVE OLD NICODERM (NICOTINE) PATCH TD SCH (21:00)
[2016-05-23] VITALS (27 sets, daily range): BP systolic 118–164; BP diastolic 66–95; PULSE 78–112; RESP 20–30; TEMP 97.4–98.2; O2SAT 93–100
[2016-05-23] MEDS: RESP: ALBUTEROL 2.5 MG/3 ML NEB (SCH) INH ×4 (04:03→19:46)
[2016-05-23 06:43] LABS: AUTOMATED NEUTROPHIL # 9.4 TH/MM3 (1.8-7.7); BASOPHIL % 0.2 % (0.0-2.0); EOSINOPHIL % 0.1 % (0.0-4.0); HEMATOCRIT 37.6 % (39.0-51.0); HEMO FLAGS DIFF FINAL; LYMPH % 4.5 % (9.0-44.0); LYMPHOCYTE # 0.5 TH/MM3 (1.0-4.8); MEAN CELL VOLUME 94.1 FL (80.0-100.0); MEAN CORPUSCULAR HEMOGLOBIN 31.5 PG (27.0-34.0); MEAN CORPUSCULAR HGB CONC 33.5 % (32.0-36.0); MONO % 5.5 % (0.0-8.0); NEUT % 89.7 % (16.0-70.0); PLATELET COUNT 332 TH/MM3 (150-450); RED BLOOD COUNT 3.99 MIL/MM3 (4.50-5.90); RED CELL DISTRIBUTION WIDTH 14.5 % (11.6-17.2); WHITE BLOOD COUNT 10.4 TH/MM3 (4.0-11.0)
--- NOTE | 2016-05-23 07:19 | HHI.FPPN ---
Subjective Remarks Patient reports breathing is neither worse or improved. He has remained AF and satting at 99 % while on 2 L n.c. D-dimer wnl. Did not require BiPAP overnight. HR controlled with amiodorone gtt and PO cardizem. He reports tight sensation with breaths. Urinated well overnight 3.5 L and wet his bed several times. Catheter placement was difficult and unsuccessful per RN. (Osvaldo Silvestre MD R2) Objective Vitals Vital Signs Date Time Temp Pulse Resp B/P Pulse Ox O2 Delivery O2 Flow Rate FiO2 05/23/16 05:05 89 05/23/16 04:06 95 Nasal Cannula 2.00 05/23/16 04:00 82 05/23/16 04:00 98.0 82 20 141/83 98 05/23/16 03:14 80 05/23/16 03:13 98 Nasal Cannula 2.00 05/23/16 02:15 79 05/23/16 00:00 98.0 79 20 118/66 98 05/23/16 00:00 98 Nasal Cannula 2.00 05/22/16 23:46 98 Nasal Cannula 2.00 05/22/16 20:39 99 Nasal Cannula 2.00 05/22/16 20:00 98 Nasal Cannula 2.00 05/22/16 20:00 98.1 79 24 164/95 98 05/22/16 18:09 78 05/22/16 17:00 77 05/22/16 16:00 82 05/22/16 15:53 100 Nasal Cannula 2.00 05/22/16 15:00 Nasal Cannula 2.00 05/22/16 15:00 118 05/22/16 15:00 97.9 81 22 145/77 99 05/22/16 14:19 115 05/22/16 13:00 109 05/22/16 12:00 105 05/22/16 11:10 98.4 101 22 140/95 98 05/22/16 11:10 123 05/22/16 11:00 Nasal Cannula 2.00 05/22/16 11:00 116 05/22/16 10:00 130 05/22/16 09:00 124 05/22/16 08:13 98 Nasal Cannula 2.00 05/22/16 08:00 108 I/O 05/22/16 05/22/16 05/22/16 05/23/16 3/23/17 3/23/17 07:00 15:00 23:00 07:00 15:00 23:00 Intake Total 1900 ml 960 ml 620 ml Output Total 2650 ml 650 ml 1200 ml 1700 ml Balance -750 ml -650 ml -240 ml -1080 ml Intake Oral 1200 ml 960 ml 420 ml IV Total 700 ml 200 ml Output Urine Total 2650 ml 650 ml 1200 ml 1700 ml # Bowel Movements 0 0 0 0 (Osvaldo Silvestre MD R2) Result Diagram: 05/23/16 0526 05/22/16 0530 Imaging Last Impressions Chest X-Ray 05/21/16 1117 Signed Impressions: Service Date/Time: Saturday, May 21, 2016 12:12 - CONCLUSION: 1. Chronic elevation of the right hemidiaphragm. 2. No acute focal pulmonary infiltrate or pulmonary vascular congestion. Rigoberto Castro MD Lower Extremity Ultrasound 05/21/16 0000 Signed Impressions: Service Date/Time: Saturday, May 21, 2016 11:37 - CONCLUSION: No evidence of deep venous thrombosis within the right lower extremity. Rigoberto Castro MD Objective Remarks GENERAL: Well developed, well-nourished elderly male. Negative Levines sign. Not diaphoretic. Not anxious appearing on 2 L nasal cannula EYES: PERRLA. EOMI. Lids and conjunctivae reveal no gross abnormality. No scleral icterus. ENT: Hearing adequate. Head NCAT. MMM. OP/OC clear. No cervical or supraclavicular LAD. NECK: No JVD. No carotid bruits. Neck supple, no masses. Trachea midline. No thyromegaly. RESPIRATORY: No evidence of pulmonary edema. Respiratory rate approximately 25. Poor air movement in the lower lung chen. Wheezes audible without stethoscope. CARDIOVASCULAR: Irregularly irregular rhythm. Heart rate is 90s on telemetry. Radial and DP pulses 2+ and symmetric bilaterally. Brisk capillary refill. ABDOMEN: S/NT/ND. Bowel sounds present in all quadrants. No masses or pulsations present. EXTREMITIES: Lower extremities notable for 2+ edema to the reilly, right slightly worse than left. No clubbing, cyanosis, or erythema. MUSCULOSKELETAL: No obvious bony deformities or joint pain. Strength 5/5 in upper and lower extremities. No calf tenderness. SKIN: No evidence of cellulitis, ecchymoses. Adequate skin turgor. NEUROLOGICAL: Awake and alert. No obvious cranial nerve deficits. Motor grossly within normal limits. Five out of 5 muscle strength in the arms and legs. Normal speech. PSYCHIATRIC: Appropriate mood and affect; insight and judgment normal. (Osvaldo Silvestre MD R2) A/P Assessment and Plan 71[facility] patient with history of atrial flutter, poor historian so unknown medication history, admitted for symptomatic atrial flutter, COPD exacerbation, and chest pain work-up Discharge Planning Pending clinical improvement (Osvaldo Silvestre MD R2) Attending Attestation Pt. examined and case discussed with resident physician I have read the above note and agree with the assessment/plan as discussed with me I was involved in all medical decision making for this patient Taco Alejandro MD (Taco Alejandro MD) Problem List: (1) COPD exacerbation Status: Acute Plan: DDx includes COPD exacerbation, CHF exacerbation, pneumonia, asthma attack, [place], PE. -Pt. has a PMH significant for smoking and right lower lung resection. Pulmonoloogy consulted, we apprec their assistance in management. -WBC 10.4, neutrophil 89%, not clearly indicative of infection but this cannot be ruled on. -EKG showing afib as discussed elsewhere. BNP 749. Bicarb not elevated. -CXR showed chronic elevation of the right hemidiaphragm. -Re: possibility of PE, Wells score is 1.5. However, given no clinical improvement, D-dimer ordered and was WNL. -Treat with Supplemental O2 to maintain sats above 90%. Encourage pt. to get OOB and ambulate. -Duonebs q6 hrs scheduled increased to q4hr. Will alternate with Albuterol q4hr so that he is getting treatments every 2 hours. Note that these treatments may cause tachycardia -Pt. rec'd Solu-Medrol 125 mg IV 1 in the ED, to continue -Lasix 20 mg IV 1 given in ED. We'll give 40 mg IV today and continue as needed. -Protonix 40 mg PO daily for GI protection and decr. chances of aspiration pneumonia. -Azithromycin 500 mg PO 1, then 250 mg PO q24 hrs (x 5-7 days). Tylenol PRN. -Add Rocephin 05/22 -Mucinex 600 mg tab PO BID PRN congestion. -dextromethorphan PRN cough. -Should administer flu vaccine and Pneumovax. -Incentive spirometer. DISPO: -Discharge pending clinical improvement -Plan for pt to have a total of 5 day course of Azithro. Plan to also send pt. with COPD meds and a 2 week steroid taper to decrease the chances of another flare-up. -Consider eval. for home O2 therapy prior to d/c. CM assisting. -Pt. will need f/u with PCP and with dog daycare provider as an outpatient. (2) Congestive heart failure Status: Acute Plan: Possible exacerbation. Plan as above COPD exacerbation. BNP is notable to be 749 this admission, was 339 one month ago. Per patient. Patient has a BNP of 749 today. However, on echocardiogram EF 5055 % in April 2016, normal systolic function, normal wall thickness, normal wall motion without any regional wall motion abnormalities. Normal pulmonary artery pressure. He does have 2+ edema of the lower extremities. -Elevate legs, SCDs -Trend troponin, EKG, CK - negative. -Lasix 20 mg IV 1 given in ED, 3550 ml UOP documented -Lasix 40mg IV x 1 in AM to encourage diuresis - Lasix PO 40 BID. Repeat CXR . (3) Atrial flutter with rapid ventricular response Status: Acute Plan: Diagnosed April 2016. Discharge from the hospital on Cardizem 240 mg daily and Eliquis is 5 mg daily. Unclear whether the patient was taking these medications. In ED, required multiple IV medications to control rate, which was originally in the 170s reported by [facility]. Rate is currently in the 80s-90s. Adenosine 2, Cardizem 2, digoxin 1 administered. Cardizem drip was initiated in the ED. -Cardiology consulted, placed patient on amiodarone drip, restarted Eliquis. Patient required additional boluses of Cardizem and digoxin on 05/21 per cardiology (4) Hypertension Status: Chronic Plan: BP 140s-160s SBP on admission Continue home dose lisinopril 10 mg daily Vasotec 0.125mg IV q8h PRN SBP>180, DBP>100 (5) Tobacco abuse Status: Acute Plan: Nicotine patch (6) Alcohol abuse Status: Acute Plan: CIWA protocol (7) Fluids/Electrolytes/Nutrition/Prophylaxis Status: Acute Plan: Fluids: Caution IVF given fluid overloaded Electrolytes: monitor and replete as needed Nutrition: heart-healthy diet DVT Prophylaxis: Lovenox 40mg subQ q24hr/bilateral SCDs GI Prophylaxis: Protonix 40mg PO daily wdw Dr. Alejandro. (Osvaldo Silvestre MD R2) Problem Qualifiers (1) Congestive heart failure: Qualified Code: I50.9 - Congestive heart failure, unspecified congestive heart failure chronicity, unspecified congestive heart failure type (2) Hypertension: Qualified Code: I10 - Essential hypertension Osvaldo Silvestre MD R2 May 23, 2016 07:18 Taco Alejandro MD May 23, 2016 20:36
[2016-05-23 07:31] LABS: BICARBONATE 32.4 MEQ/L (21.0-32.0); POTASSIUM 3.8 MEQ/L (3.5-5.1)
[2016-05-23] MEDS: RESP: ALBUTEROL 2.5 MG/IPRATROPIUM 0.5 MG NEB (SCH) INH ×3 (07:54→15:13)
--- NOTE | 2016-05-23 08:42 | PD.CARD.PN ---
Subjective Subjective Remarks Dyspnea at rest, unchanged. No CP, dizziness, palpitations, PND. Objective Medications Item Value Date Time Enoxaparin Sodium 40 mg 05/21/16 1500 (Lovenox Inj) Q24H/SQ 05/21/16 1551 Lisinopril 10 mg 05/22/16 0900 (Prinivil) DAILY/PO Apixaban 5 mg 05/21/16 2100 (Eliquis) BID/PO 05/21/16 204 Amiodarone HCl 250 ml @ 0 mls/hr 05/21/16 1600 450 mg/Dextrose CONTINUOUS/IV 05/21/16 1837 Furosemide 40 mg 05/23/16 0900 (Lasix Inj) DAILY/IV PUSH Diltiazem HCl 240 mg 05/22/16 0900 (Cardizem Cd) DAILY/PO 05/22/16 0929 Apixaban 5 mg 05/21/16 2100 (Eliquis) BID/PO 05/22/162099 Vital Signs / I&O Vital Signs Date Time Temp Pulse Resp B/P Pulse Ox O2 Delivery O2 Flow Rate FiO2 05/23/16 08:00 81 05/23/16 07:55 98 Nasal Cannula 2.00 05/23/16 07:00 81 05/23/16 07:00 97.7 82 22 157/73 99 05/23/16 07:00 98 Nasal Cannula 2.00 05/23/16 06:00 84 05/23/16 05:05 89 05/23/16 04:06 95 Nasal Cannula 2.00 05/23/16 04:00 82 05/23/16 04:00 98.0 82 20 141/83 98 05/23/16 03:14 80 05/23/16 03:13 98 Nasal Cannula 2.00 05/23/16 02:15 79 05/23/16 01:00 78 05/23/16 00:00 78 05/23/16 00:00 98.0 79 20 118/66 98 05/23/16 00:00 98 Nasal Cannula 2.00 05/22/16 23:46 98 Nasal Cannula 2.00 05/22/16 23:00 78 05/22/16 22:00 78 05/22/16 21:00 76 05/22/16 20:39 99 Nasal Cannula 2.00 05/22/16 20:00 98 Nasal Cannula 2.00 05/22/16 20:00 98.1 79 24 164/95 98 05/22/16 20:00 78 05/22/16 19:00 78 05/22/16 18:09 78 05/22/16 17:00 77 05/22/16 16:00 82 05/22/16 15:53 100 Nasal Cannula 2.00 05/22/16 15:00 Nasal Cannula 2.00 05/22/16 15:00 118 05/22/16 15:00 97.9 81 22 145/77 99 05/22/16 14:19 115 05/22/16 13:00 109 05/22/16 12:00 105 05/22/16 11:10 98.4 101 22 140/95 98 05/22/16 11:10 123 05/22/16 11:00 Nasal Cannula 2.00 05/22/16 11:00 116 05/22/16 10:00 130 05/22/16 09:00 124 I/O 05/22/16 05/22/16 05/22/16 05/23/16 05/23/16 05/23/16 07:00 15:00 23:00 07:00 15:00 23:00 Intake Total 1900 ml 960 ml 620 ml Output Total 2650 ml 650 ml 1200 ml 1700 ml Balance -750 ml -650 ml -240 ml -1080 ml Intake Oral 1200 ml 960 ml 420 ml IV Total 700 ml 200 ml Output Urine Total 2650 ml 650 ml 1200 ml 1700 ml # Bowel Movements 0 0 0 0 Physical Exam GENERAL: Well developed, well nourished. No acute distress. HEENT: Jugular venous pressure is normal. CHEST: Lungs clear to auscultation bilaterally. Diminished breath sounds right base. CARDIAC: Irregular rate and rhythm without S3, S4, or murmur. ABDOMEN: Soft, nontender, no hepatosplenomegaly. Bowel sounds present. EXTREMITIES: No clubbing, cyanosis, or edema. Laboratory Laboratory Tests Test 05/22/16 05/22/16 05/22/16 05/23/16 15:51 16:30 16:48 05:26 Urine Color YELLOW Urine Turbidity CLEAR Urine pH 5.5 Urine Specific [place] 1.016 Urine Protein NEG mg/dL Urine Glucose (UA) NEG mg/dL Urine Ketones NEG mg/dL Urine Occult Blood NEG Urine Nitrite NEG Urine Bilirubin NEG Urine Urobilinogen LESS THAN 2.0 MG/DL Urine Leukocyte Esterase NEG Urine RBC LESS THAN 1 /hpf Urine WBC LESS THAN 1 /hpf Urine Mucus FEW /lpf Microscopic Urinalysis Comment CULT NOT INDICATED Blood Gas Puncture Site SWAN FELICIANO LINE Blood Gas Patient Temperature 98.6 Venous Blood pH 7.33 Venous Blood Partial Pressure 57 mmHg CO2 Venous Blood Partial Pressure 53 mmHg O2 Venous Blood HCO3 29 mmol/L Venous Blood Oxygen Saturation 80 % Venous Blood Oxygen Content 13.9 Vol % Venous Blood Base Excess 3.4 mmol/L Oxygen Delivery Device NASAL CANNULA Blood Gas Liter Flow 2 L/M D-Dimer Quantitative (PE/DVT) 0.31 MG/L FEU White Blood Count 10.4 TH/MM3 Red Blood Count 3.99 MIL/MM3 Hemoglobin 12.6 GM/DL Hematocrit 37.6 % Mean Corpuscular Volume 94.1 FL Mean Corpuscular Hemoglobin 31.5 PG Mean Corpuscular Hemoglobin 33.5 % Concent Red Cell Distribution Width 14.5 % Platelet Count 332 TH/MM3 Mean Platelet Volume 6.5 FL Neutrophils (%) (Auto) 89.7 % Lymphocytes (%) (Auto) 4.5 % Monocytes (%) (Auto) 5.5 % Eosinophils (%) (Auto) 0.1 % Basophils (%) (Auto) 0.2 % Neutrophils # (Auto) 9.4 TH/MM3 Lymphocytes # (Auto) 0.5 TH/MM3 Monocytes # (Auto) 0.6 TH/MM3 Eosinophils # (Auto) 0.0 TH/MM3 Basophils # (Auto) 0.0 TH/MM3 CBC Comment DIFF FINAL Differential Comment Sodium Level 140 MEQ/L Potassium Level 3.8 MEQ/L Chloride Level 101 MEQ/L Carbon Dioxide Level 32.4 MEQ/L Anion Gap 7 MEQ/L Blood Urea Nitrogen 31 MG/DL Creatinine 0.89 MG/DL Estimat Glomerular Filtration 85 ML/MIN Rate Random Glucose 161 MG/DL Calcium Level 8.9 MG/DL Assessment and Plan Problem List: (1) Paroxysmal atrial flutter Assessment and Plan: Remains in atrial flutter, mostly controlled HR's on IV Amiodarone/oral Cardizem. No evidence for ACS or CHF. LV function normal by recent echo. REC continue oral Cardizem, increase dose, Eliquis; change Amiodarone to po (2) Hypertension Assessment and Plan: Fluctuating BP's, mostly elevated. Rec increase Cardizem CD to 360 mg qd. Code Status full code Discussed Condition With patient Problem Qualifiers (1) Hypertension: Qualified Code: I10 - Essential hypertension Dalton Leach MD May 23, 2016 08:42
[2016-05-23] MEDS: LISINOPRIL 10 MG TAB PO SCH (08:44)
[2016-05-23] MEDS: THIAMINE HCL 100 MG TAB PO SCH (08:45)
[2016-05-23] MEDS: busPIRone HCL 5 MG TAB PO SCH ×3 (08:45→17:24)
[2016-05-23] MEDS: AZITHROMYCIN 250 MG TAB PO SCH (08:45)
[2016-05-23] MEDS: PANTOPRAZOLE SOD 40 MG DELAYED RELEASE TAB PO SCH (08:45)
[2016-05-23] MEDS: APIXABAN 5 MG TABLET PO SCH ×2 (08:45→21:00)
[2016-05-23] MEDS: methylPREDNISolone SOD SUCC 125 MG/2 ML VIAL IVP SCH ×3 (08:47→21:00)
[2016-05-23] MEDS: SODIUM CHLORIDE 0.9% FLUSH 10 ML FLUSH IV FLUSH SCH ×2 (08:48→21:00)
[2016-05-23] MEDS: NICOTINE 21 MG/24 HR PATCH TD SCH (08:49)
[2016-05-23] MEDS: TIOTROPIUM BROMIDE 18 MCG INH INH SCH (08:49)
[2016-05-23] MEDS: BUDESONIDE-FORMOTEROL 160/4.5 MCG INHALER INH SCH ×2 (08:49→21:00)
[2016-05-23] MEDS: guaiFENesin SOLUTION 200 MG/10 ML CUP PO SCH ×4 (08:50→21:00)
[2016-05-23] MEDS ORDERED: FUROSEMIDE 40 MG TAB PO SCH (09:00)
[2016-05-23] MEDS ORDERED: AMIODARONE 200 MG TAB PO SCH (09:00)
[2016-05-23] MEDS ORDERED: FUROSEMIDE 40 MG/4 ML VIAL IV PUSH SCH (09:00)
--- NOTE | 2016-05-23 09:24 | RADRPT ---
EXAM DATE/TIME: 05/23/2016 08:06 [facility] COMPARISON: CHEST SINGLE AP, May 21, 2016, 12:12. INDICATIONS: Short of breath, asthma MEDICAL HISTORY: Chronic obstructive pulmonary disease. SURGICAL HISTORY: Right lower lobe removed ENCOUNTER: Subsequent ACUITY: 3 days PAIN SCORE: 0/10 LOCATION: Bilateral chest FINDINGS: There is elevation of the right hemidiaphragm. The heart and mediastinal structures are normal. The pulmonary vascular pattern is normal. The lungs are clear. CONCLUSION: 1. Elevation of the right hemidiaphragm. 2. No acute focal pulmonary infiltrate or pulmonary vascular congestion Rigoberto Castro MD on May 23, 2016 at 9:20 Board Certified Radiologist. This report was verified electronically.
[2016-05-23] MEDS: DILTIAZEM-CD 180 MG CAP ER PO SCH (10:30)
--- NOTE | 2016-05-23 15:42 | RADRPT ---
EXAM DATE/TIME: 05/23/2016 14:30 [facility] COMPARISON: CHEST SINGLE AP, May 23, 2016, 8:06. INDICATIONS : Lung nodule , history of lung ca RADIATION DOSE: 7.13 CTDIvol (mGy) MEDICAL HISTORY : Chronic obstructive pulmonary disease. Congestive heart failure. Metastatic, lung. SURGICAL HISTORY : Lobectomy. ENCOUNTER: Initial ACUITY: 1 day PAIN SCALE: 3/10 LOCATION: chest TECHNIQUE: Volumetric scanning of the chest was performed. Using automated exposure control and adjustment of t he mA and/or kV according to patient size, radiation dose was kept as low as reasonably achievable to obtain optimal diagnostic quality images. FINDINGS: LUNGS: There is asymmetric elevation of the right diaphragm and mild probable scarring at the right lung bas e. There are scattered small nodular densities in the right lung, largest a slightly greater than 1.5 cm density in the lateral right base. The left lung is clear area PLEURAE: Mild lobular pleural thickening in the right lung base. MEDIASTINUM: Small subdural mediastinal lymph nodes including a 14 mm pretracheal node and a similar sized node in the AP window. Coronary artery calcifications noted. AXILLAE: Within normal limits. No lymphadenopathy. MUSCULOSKELETAL: Within normal limits for patient age. MISCELLANEOUS: Liver has a somewhat cirrhotic appearance with slight irregularity of surface contours and relative e nlargement of left lobe and caudate. CONCLUSION: Scattered small nodular densities in the right lung which are nonspecific. Direct comparison to previ ous exams this patient with history of lung cancer would be recommended. Mild mediastinal srikanth prominence Arash Chatman MD on May 23, 2016 at 15:34 Board Certified Radiologist. This report was verified electronically.
[2016-05-23] MEDS: cefTRIAXone INJ 1,000 MG in SODIUM CHLORIDE 0.9% INJ 100 ML IV SCH (15:57)
[2016-05-23] MEDS: FUROSEMIDE 40 MG TAB PO SCH (17:24)
[2016-05-23] MEDS: REMOVE OLD NICODERM (NICOTINE) PATCH TD SCH (21:00)
[2016-05-24] VITALS (31 sets, daily range): BP systolic 107–146; BP diastolic 56–76; PULSE 74–90; RESP 20–24; TEMP 97.7–98.3; O2SAT 97–99
[2016-05-24] MEDS: RESP: ALBUTEROL 2.5 MG/3 ML NEB (SCH) INH ×5 (00:19→20:54)
[2016-05-24] MEDS: methylPREDNISolone SOD SUCC 125 MG/2 ML VIAL IVP SCH ×3 (03:00→16:52)
[2016-05-24 06:44] LABS: INTERNATIONAL NORMALIZED RATIO 1.1 RATIO; PROTHROMBIN TIME - PATIENT 11.9 SEC (9.8-11.6)
[2016-05-24 06:46] LABS: AUTOMATED NEUTROPHIL # 8.3 TH/MM3 (1.8-7.7); BASOPHIL % 0.1 % (0.0-2.0); HEMATOCRIT 35.4 % (39.0-51.0); HEMO FLAGS DIFF FINAL; LYMPH % 3.6 % (9.0-44.0); LYMPHOCYTE # 0.3 TH/MM3 (1.0-4.8); MEAN CELL VOLUME 93.6 FL (80.0-100.0); MEAN CORPUSCULAR HEMOGLOBIN 31.8 PG (27.0-34.0); MONO % 5.8 % (0.0-8.0); NEUT % 90.5 % (16.0-70.0); PLATELET COUNT 265 TH/MM3 (150-450); RED BLOOD COUNT 3.78 MIL/MM3 (4.50-5.90); WHITE BLOOD COUNT 9.2 TH/MM3 (4.0-11.0)
[2016-05-24 07:09] LABS: BICARBONATE 34.5 MEQ/L (21.0-32.0)
--- NOTE | 2016-05-24 07:39 | PD.CARD.PN ---
Subjective Subjective Remarks Denies CP, palpitations, dizziness. Dyspnea largely unchanged. Objective Medications Item Value Date Time Aspirin 162 mg 05/22/16 0900 (Ecotrin Ec) DAILY/PO Lisinopril 10 mg 05/22/16 0900 (Prinivil) DAILY/PO 05/22/16 0930 Furosemide 40 mg 05/23/16 1800 (Lasix) BID@09,18/PO 05/23/16 1724 Diltiazem HCl 360 mg 05/23/16 0900 (Cardizem Cd) DAILY/PO 05/23/16 1030 Amiodarone HCl 400 mg 05/23/16 0900 (Cordarone) DAILY/PO 05/23/16 1030 Apixaban 5 mg 05/21/16 2100 (Eliquis) BID/PO 05/23/16 2100 Vital Signs / I&O Vital Signs Date Time Temp Pulse Resp B/P Pulse Ox O2 Delivery O2 Flow Rate FiO2 05/24/16 06:00 80 05/24/16 05:00 80 05/24/16 04:07 84 05/24/16 04:07 98 Nasal Cannula 2.00 05/24/16 04:00 98.3 82 22 107/56 98 05/24/16 03:46 98 Nasal Cannula 2.00 05/24/16 03:00 80 05/24/16 02:00 80 05/24/16 00:21 99 Nasal Cannula 2.00 05/24/16 00:00 98.1 84 22 110/63 98 05/24/16 00:00 98 Nasal Cannula 2.00 05/23/16 20:00 98.1 82 24 142/82 98 05/23/16 20:00 98 Nasal Cannula 2.00 05/23/16 18:00 81 05/23/16 17:00 82 05/23/16 16:15 86 05/23/16 15:13 93 Nasal Cannula 2.00 05/23/16 15:00 83 05/23/16 15:00 98.2 82 25 132/80 94 05/23/16 15:00 95 Nasal Cannula 2.00 05/23/16 14:00 82 05/23/16 13:00 100 05/23/16 12:00 110 05/23/16 11:00 97.4 104 30 146/93 100 05/23/16 11:00 95 05/23/16 11:00 98 Nasal Cannula 2.00 05/23/16 10:00 112 05/23/16 09:00 82 05/23/16 08:00 81 05/23/16 07:55 98 Nasal Cannula 2.00 I/O 05/23/16 05/23/16 05/23/16 05/24/16 05/24/16 05/24/16 07:00 15:00 23:00 07:00 15:00 23:00 Intake Total 620 ml 360 ml 1200 ml 420 ml Output Total 1700 ml 600 ml 425 ml 1000 ml Balance -1080 ml -240 ml 775 ml -580 ml Intake Oral 420 ml 360 ml 1200 ml 420 ml IV Total 200 ml Output Urine Total 1700 ml 600 ml 425 ml 1000 ml # Bowel Movements 0 1 1 0 Physical Exam GENERAL: Well developed, well nourished. No acute distress. HEENT: Jugular venous pressure is normal. CHEST: Lungs clear to auscultation bilaterally. Diminished breath sounds right base. CARDIAC: Irregular rate and rhythm without S3, S4, or murmur. ABDOMEN: Soft, nontender, no hepatosplenomegaly. Bowel sounds present. EXTREMITIES: No clubbing, cyanosis, or edema. Laboratory Laboratory Tests Test 05/24/16 06:10 White Blood Count 9.2 TH/MM3 Red Blood Count 3.78 MIL/MM3 Hemoglobin 12.0 GM/DL Hematocrit 35.4 % Mean Corpuscular Volume 93.6 FL Mean Corpuscular Hemoglobin 31.8 PG Mean Corpuscular Hemoglobin 34.0 % Concent Red Cell Distribution Width 15.0 % Platelet Count 265 TH/MM3 Mean Platelet Volume 6.2 FL Neutrophils (%) (Auto) 90.5 % Lymphocytes (%) (Auto) 3.6 % Monocytes (%) (Auto) 5.8 % Eosinophils (%) (Auto) 0.0 % Basophils (%) (Auto) 0.1 % Neutrophils # (Auto) 8.3 TH/MM3 Lymphocytes # (Auto) 0.3 TH/MM3 Monocytes # (Auto) 0.5 TH/MM3 Eosinophils # (Auto) 0.0 TH/MM3 Basophils # (Auto) 0.0 TH/MM3 CBC Comment DIFF FINAL Differential Comment Prothrombin Time 11.9 SEC Prothromb Time International 1.1 RATIO Ratio Sodium Level 141 MEQ/L Potassium Level 4.0 MEQ/L Chloride Level 101 MEQ/L Carbon Dioxide Level 34.5 MEQ/L Anion Gap 6 MEQ/L Blood Urea Nitrogen 33 MG/DL Creatinine 0.87 MG/DL Estimat Glomerular Filtration 87 ML/MIN Rate Random Glucose 126 MG/DL Calcium Level 8.4 MG/DL Assessment and Plan Problem List: (1) Paroxysmal atrial flutter Assessment and Plan: Remains in atrial flutter, mostly controlled HR's on oral Amiodarone/oral Cardizem. No evidence for ACS or CHF. LV function normal by recent echo. REC continue oral Cardizem, Eliquis, Amiodarone (drop dose to 200 mg qd) OK for discharge from a cardiac standpoint (2) Hypertension Assessment and Plan: Better BP's on current regimen. Continue same. Code Status full code Discussed Condition With patient Problem Qualifiers (1) Hypertension: Qualified Code: I10 - Essential hypertension Dalton Leach MD May 24, 2016 07:39
[2016-05-24] MEDS: RESP: ALBUTEROL 2.5 MG/IPRATROPIUM 0.5 MG NEB (SCH) INH ×3 (07:58→16:36)
--- NOTE | 2016-05-24 08:16 | MB ---
cc: YUMIKO LIANG JOHN DATE OF CONSULTATION: 05/23/2016 REASON FOR CONSULTATION COPD and hypoxia. HISTORY OF PRESENT ILLNESS This is a 71-year-old white male who was initially admitted with progressive shortness of breath for 3-4 days duration. The patient also had some chest pains, weakness and dizziness and apparently had wheezing. He was thus seen in the emergency room where he was admitted and started on oxygen as well as nebulized DuoNeb solution q.i.d. He is feeling somewhat better but not completely well. He has had evidence of GI bleed and denied any hemoptysis or chest pain. Denied nausea, vomiting, or urinary symptoms. PAST MEDICAL HISTORY 1. History of non-small cell lung CA with a right lobectomy. 2. History of testicular cancer, status post orchiectomy. 3. He has been treated for exacerbation of bronchitis. 4. The patient does have oxygen at 2 liters. 5. Diabetes mellitus. 6. Hypertension. 7. History of atrial fibrillation and flutter. PAST SURGICAL HISTORY 1. Right thoracotomy and resection of the lung for lung tumor. 2. Orchiectomy. MEDICATIONS The med list includes: 1. Nicotine patch 21 mg. 2. Lorazepam 0.5 mg b.i.d. 3. Mucinex DM, one b.i.d. 4. Ativan 0.5 mg b.i.d. p.r.n. 5. Symbicort 160/4.5, two puffs b.i.d. 6. Prinivil 5 mg a day. ALLERGIES None listed. FAMILY HISTORY Father of old age. Mother of cancer. HABITS The patient smokes 5-10 cigarettes a day. He also smoked 2-3 packs per day for over 35 years. REVIEW OF SYSTEMS The patient has had some leg swelling as well as joint pains of his extremities. He has anxiety. He has reflux symptoms and abdominal discomfort. Denies any blackout spells. The other system review is negative. PHYSICAL EXAMINATION GENERAL: This is a well-built elderly white male in no acute distress. No pallor, icterus, cyanosis or lymphadenopathy. VITAL SIGNS: Blood pressure 130/70, pulse 105, respirations 22, temperature 98.2. HEENT: Head is normocephalic. Pupils are reactive. Tongue is moist. Throat is injected. Nasal mucosa is edematous. NECK: There is no venous distension. No thyromegaly. CHEST: Decreased breath sounds at the bases with expiratory wheezes throughout both lung chen. Prolonged expirations. HEART: The heart sounds are irregularly irregular, S1 and S2, with no murmur and no S3. ABDOMEN: Soft, protuberant without masses. No organomegaly or tenderness. The bowel sounds are active. EXTREMITIES: Edema 1+. Decreased pulses. Reflexes are brisk with no gross motor deficits. NEUROLOGIC: Cranial nerves are grossly intact. SKIN: No lesions. IMPRESSION 1. COPD with acute exacerbation. 2. CHF and ASHD. 3. Hyperlipidemia. 4. 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 PLAN The patient has been started on O2 at 3 liters nasal cannula. Nebulized DuoNeb solution added q.i.d. Will also continue with antibiotic coverage as ordered and follow-up chest x-ray to be done this week. He was placed on Solu-Medrol 40 mg IV q.12h. If he is clinically stable will get a pulmonary function study. The patient will also be placed on Advair HFA 115 with two puffs twice a day. Thank you for this consultation. MD ALO Olguin/MARLON /11:20 PM /7:54 AM
[2016-05-24] MEDS: SODIUM CHLORIDE 0.9% FLUSH 10 ML FLUSH IV FLUSH SCH ×2 (09:00→21:00)
[2016-05-24] MEDS: AMIODARONE 200 MG TAB PO SCH (09:33)
[2016-05-24] MEDS: guaiFENesin SOLUTION 200 MG/10 ML CUP PO SCH ×4 (09:33→20:59)
[2016-05-24] MEDS: busPIRone HCL 5 MG TAB PO SCH ×3 (09:33→16:51)
[2016-05-24] MEDS: AZITHROMYCIN 250 MG TAB PO SCH (09:33)
[2016-05-24] MEDS: LISINOPRIL 10 MG TAB PO SCH (09:33)
[2016-05-24] MEDS: FUROSEMIDE 40 MG TAB PO SCH ×2 (09:33→16:51)
[2016-05-24] MEDS: PANTOPRAZOLE SOD 40 MG DELAYED RELEASE TAB PO SCH (09:33)
[2016-05-24] MEDS: THIAMINE HCL 100 MG TAB PO SCH (09:33)
[2016-05-24] MEDS: DILTIAZEM-CD 180 MG CAP ER PO SCH (09:34)
[2016-05-24] MEDS: APIXABAN 5 MG TABLET PO SCH ×2 (09:34→20:59)
[2016-05-24] MEDS: BUDESONIDE-FORMOTEROL 160/4.5 MCG INHALER INH SCH ×2 (09:35→21:00)
[2016-05-24] MEDS: TIOTROPIUM BROMIDE 18 MCG INH INH SCH (09:36)
[2016-05-24] MEDS: NICOTINE 21 MG/24 HR PATCH TD SCH (09:37)
--- NOTE | 2016-05-24 10:55 | HHI.FPPN ---
Subjective Remarks Patient seen and examined this morning. He states that he has a lot of trouble getting to the bathroom without getting out of breath. He has normal bowel and bladder function. He is eating without difficulty. He denies fever, chills, nausea, vomiting. (Cammy Bettencourt MD R1) Objective Vitals Vital Signs Date Time Temp Pulse Resp B/P Pulse Ox O2 Delivery O2 Flow Rate FiO2 05/24/16 08:02 98 Nasal Cannula 1.00 05/24/16 06:00 80 05/24/16 05:00 80 05/24/16 04:07 84 05/24/16 04:07 98 Nasal Cannula 2.00 05/24/16 04:00 98.3 82 22 107/56 98 05/24/16 03:46 98 Nasal Cannula 2.00 05/24/16 03:00 80 05/24/16 02:00 80 05/24/16 01:00 80 05/24/16 00:21 99 Nasal Cannula 2.00 05/24/16 00:00 98.1 84 22 110/63 98 05/24/16 00:00 98 Nasal Cannula 2.00 05/24/16 00:00 80 05/23/16 23:00 80 05/23/16 22:00 80 05/23/16 21:00 82 05/23/16 20:00 98.1 82 24 142/82 98 05/23/16 20:00 98 Nasal Cannula 2.00 05/23/16 20:00 80 05/23/16 19:00 80 05/23/16 18:00 81 05/23/16 17:00 82 05/23/16 16:15 86 05/23/16 15:13 93 Nasal Cannula 2.00 05/23/16 15:00 83 05/23/16 15:00 98.2 82 25 132/80 94 05/23/16 15:00 95 Nasal Cannula 2.00 05/23/16 14:00 82 05/23/16 13:00 100 05/23/16 12:00 110 05/23/16 11:00 97.4 104 30 146/93 100 05/23/16 11:00 95 05/23/16 11:00 98 Nasal Cannula 2.00 I/O 05/23/16 05/23/16 05/23/16 05/24/16 05/24/1624/17 07:00 15:00 23:00 07:00 15:00 23:00 Intake Total 620 ml 360 ml 1200 ml 420 ml Output Total 1700 ml 600 ml 425 ml 1000 ml Balance -1080 ml -240 ml 775 ml -580 ml Intake Oral 420 ml 360 ml 1200 ml 420 ml IV Total 200 ml Output Urine Total 1700 ml 600 ml 425 ml 1000 ml # Bowel Movements 0 1 1 0 (Cammy Bettencourt MD R1) Result Diagram: 05/24/16 0610 05/24/16 0610 Imaging Last [address] 05/23/16 1321 Signed Impressions: Service Date/Time: May 14:30 - CONCLUSION: Scattered small nodular densities in the right lung which are nonspecific. Direct comparison to previous exams this patient with history of lung cancer would be recommended. Mild mediastinal srikanth prominence Arash Chatman MD Chest X-Ray 05/23/16 0000 Signed Impressions: Service Date/Time: May 08:06 - CONCLUSION: 1. Elevation of the right hemidiaphragm. 2. No acute focal pulmonary infiltrate or pulmonary vascular congestion Rigoberto Castro MD Chest X-Ray 05/21/16 1117 Signed Impressions: Service Date/Time: Saturday, May 21, 2016 12:12 - CONCLUSION: 1. Chronic elevation of the right hemidiaphragm. 2. No acute focal pulmonary infiltrate or pulmonary vascular congestion. Rigoberto Castro MD Objective Remarks GENERAL: Well developed, well-nourished elderly male. Not diaphoretic. Not anxious appearing on 2L nasal cannula. He is visualized walking around the room with increased work of breathing but improved after sitting down. EYES: PERRLA. EOMI. Lids and conjunctivae reveal no gross abnormality. No scleral icterus. ENT: Hearing adequate. Head NCAT. MMM. OP/OC clear. No cervical or supraclavicular LAD. NECK: No JVD. No carotid bruits. Neck supple, no masses. Trachea midline. No thyromegaly. RESPIRATORY: No evidence of pulmonary edema. Respiratory rate approximately 20. No wheezes today, improved overall air movement. CARDIOVASCULAR: Irregularly irregular rhythm. Heart rate is 90s on telemetry. Radial and DP pulses 2+ and symmetric bilaterally. Brisk capillary refill. ABDOMEN: S/NT/ND. Bowel sounds present in all quadrants. No masses or pulsations present. EXTREMITIES: Lower extremities notable for 2+ edema to the reilly, right slightly worse than left. No clubbing, cyanosis, or erythema. MUSCULOSKELETAL: No obvious bony deformities or joint pain. Strength 5/5 in upper and lower extremities. No calf tenderness. SKIN: No evidence of cellulitis, ecchymoses. Adequate skin turgor. NEUROLOGICAL: Awake and alert. No obvious cranial nerve deficits. Motor grossly within normal limits. Five out of 5 muscle strength in the arms and legs. Normal speech. PSYCHIATRIC: Appropriate mood and affect; insight and judgment normal. Medications and IVs Inpatient Medications Acetaminophen (Tylenol) 650 mg Q4H PRN PO PAIN 1-10 AND/OR FEVER >101F; Start 05/21/16 at 21:45 Albuterol Sulfate (Albuterol Neb) 2.5 mg Q4HR NEB INH Last administered on 08:00; Start 05/23/16 at 12:00 Albuterol/ Ipratropium (Duoneb Neb) 1 ampule Q4HR WHILE AWAKE NEB INH Last administered on 05/24/16 07:58; Start 05/23/16 at 16:00 Amiodarone HCl (Cordarone) 200 mg DAILY PO Last administered on 05/24/16 09:33 ; Start 05/24/16 at 09:00 Amiodarone HCl 150 mg/Dextrose 100 ml @ 600 mls/hr ONCE ONCE IV Last administered on 05/21/16 18:00; Start 05/21/16 at 16:00; Stop 05/21/16 at 16:09 ; Status DC Amiodarone HCl/ Dextrose (Cordarone Inj/ D5W ([place]) Inj) 250 ml @ 0 mls/hr CONTINUOUS IV Last administered on 05/22/16 18:33; Start 05/21/16 at 16:00; Stop 05/23/16 at 08:43; Status DC Amiodarone HCl/ Dextrose (Cordarone Inj/ D5W 100 ml Inj) 100 ml @ 600 mls/hr ONCE ONCE IV Last administered on 05/22/16 09:11; Start 05/22/16 at 08:30; Stop 05/22/16 at 08:39; Status DC Apixaban 5 mg 5 mg BID PO Last administered on 05/24/16 09:34; Start 05/21/16 at 21:00 Aspirin (Aspirin Chew) 162 mg ONCE ONCE PO Last administered on 05/21/16 11: 37; Start 05/21/16 at 11:30; Stop 05/21/16 at 11:31; Status DC Aspirin (Ecotrin Ec) 162 mg DAILY PO ; Start 05/22/16 at 09:00; Stop 05/22/16 at 09:00; Status DC Azithromycin (Zithromax) 250 mg DAILY PO Last administered on 05/24/16 09:33; Start 05/22/16 at 17:00 Budesonide/ Formoterol Fumarate (Symbicort 160-4.5 Inh) 2 puff Q12HR INH Last administered on 05/24/16 09:35; Start 05/22/16 at 09:00 Buspirone HCl (Buspar) 5 mg TID PO Last administered on 05/24/16 09:33; Start 05/22/16 at 09:00 Ceftriaxone Sodium/Sodium Chloride (Rocephin Inj/NS Inj) 100 ml @ 200 mls/hr Q24H IV Last administered on 05/23/16 15:57; Start 05/22/16 at 15:00 Digoxin (Lanoxin Inj) 0.5 mg NOW ONCE IV PUSH Last administered on 05/22/16 11:11; Start 05/22/16 at 11:00; Stop 05/22/16 at 11:01; Status DC Diltiazem HCl (Cardizem Cd) 360 mg DAILY PO Last administered on 05/24/16 09: 34; Start 05/23/16 at 09:00 Diltiazem HCl (Cardizem Inj) 25 mg ONCE ONCE IV Last administered on 11:36; Start 05/21/16 at 11:30; Stop 05/21/16 at 11:31; Status DC Diltiazem HCl 240 mg 240 mg DAILY PO Last administered on 05/22/16 09:29; Start 05/22/16 at 09:00; Stop 05/23/16 at 08:44; Status DC Diltiazem HCl/ Sodium Chloride (Cardizem Inj/NS Inj) 125 ml @ 0 mls/hr TITRATE IV Last administered on 05/21/16 12:32; Start 05/21/16 at 11:30; Stop at 08:24; Status DC Enalaprilat (Vasotec Inj) 1.25 mg Q8H PRN IV PUSH SBP>180, DBP>100; Start at 22:00 Enoxaparin Sodium (Lovenox Inj) 40 mg Q24H SQ Last administered on 05/21/16 15 :51; Start 05/21/16 at 15:00; Stop 05/21/16 at 16:02; Status DC Flumazenil (Romazicon Inj) 0.2 mg Q1M PRN IV PUSH SEE LABEL COMMENTS; Start at 14:15 Furosemide (Lasix Inj) 40 mg DAILY IV PUSH Last administered on 05/23/16 08:47 ; Start 05/23/16 at 09:00; Stop 05/23/16 at 09:02; Status DC Furosemide (Lasix) 40 mg BID@,18 PO Last administered on 05/24/16 09:33; Start 05/23/16 at 18:00 Guaifenesin (Robitussin Liq) 200 mg QID PO Last administered on 05/24/16 09:33 ; Start 05/22/16 at 09:00 IV Flush (NS Flush) 2 ml UNSCH PRN IVF FLUSH AFTER USING IV ACCESS; Start 05/21 at 11:30; Stop 05/21/16 at 14:20; Status DC Lisinopril (Prinivil) 10 mg DAILY PO Last administered on 05/24/16 09:33; Start 05/22/16 at 09:00 Lorazepam (Ativan Inj) 0.5 mg ONCE ONCE IV PUSH Last administered on 01:24; Start 05/22/16 at 00:30; Stop 05/22/16 at 00:31; Status DC Lorazepam (Ativan) 2 mg Q2H PRN PO [facility] 11-14; Start 05/21/16 at 14:15 Methylprednisolone Sodium Succinate (SoluMEDROL INJ) 125 mg DAILY IV PUSH Last administered on 05/22/16 09:32; Start 05/22/16 at 09:00; Stop 05/22/16 at 14:28 ; Status DC Methylprednisolone Sodium Succinate 60 mg 60 mg Q6H IVP Last administered on 09:35; Start 05/22/16 at 15:00 Miscellaneous Information 1 HS TD Last administered on 05/23/16 21:00; Start 05/22/16 at 21:00 Naloxone HCl (Narcan Inj) 0.4 mg UNSCH PRN IV SEE LABEL COMMENTS; Start at 14:15 Nicotine (Habitrol 21 Mg Patch.24 Hr) 1 patch DAILY TD Last administered on 09:37; Start 05/22/16 at 09:00 Nitroglycerin (Nitroglycerin 2% Oint) 1 inch ONCE ONCE TOP Last administered on 05/21/16 12:32; Start 05/21/16 at 11:30; Stop 05/21/16 at 16:02; Status DC Ondansetron HCl (Zofran Inj) 4 mg Q6H PRN IVP NAUSEA OR VOMITING; Start at 14:15 Pantoprazole Sodium (Protonix) 40 mg DAILY PO Last administered on 05/24/16 09 :33; Start 05/22/16 at 09:00 Prednisone (Deltasone) 40 mg DAILY PO ; Start 05/22/16 at 09:00; Stop 05/22/16 at 09:00; Status DC Sodium Chloride (NS Flush) 2 ml BID IV FLUSH Last administered on 05/24/16 09: 00; Start 05/21/16 at 21:00 Thiamine HCl (Vitamin B1) 100 mg DAILY PO Last administered on 05/24/16 09:33 ; Start 05/22/16 at 09:00 Tiotropium [place] (Spiriva Inh) 18 mcg DAILY INH Last administered on 09:36; Start 05/22/16 at 09:00 (Cammy Bettencourt MD R1) Urinary Catheter: No (Cammy Bettencourt MD R1) Vascular Central Line Catheter: No (Cammy Bettencourt MD R1) A/P Assessment and Plan 71 year old male [facility] patient with history of atrial flutter admitted for symptomatic atrial flutter, COPD exacerbation, and chest pain work-up. Discharge Planning Pending clinical improvement (Cammy Bettencourt MD R1) Attending Attestation Patient examined and case discussed with resident physician I have read the above note and agree with the assessment/plan as discussed with the I was involved in all medical decision making for this patient Taco Alejandro M.D. (Taco Alejandro MD) Problem List: (1) COPD exacerbation Status: Acute Plan: Patient medically with shortness of breath and symptomatic atrial flutter. He continues to require regular breathing treatments and supplemental oxygen. He was started on Symbicort 05/23/16. He is medically stable to transfer to [facility] floor from [facility] on 05/24 Hospital Course: PMH significant for smoking and right lower lung resection. Pulmonology consulted, we appreciate their assistance in management - Advair HFA 115 at 2 puffs twice per day was added to regimen. On admission, WBC 10.4, neutrophil 89%, not clearly indicative of infection. Admission EKG showing afib as discussed elsewhere. BNP 749. Bicarb not elevated. Admission CXR showed chronic elevation of the right hemidiaphragm. We'll repeat during hospital stay. Re: possibility of PE, Wells score is 1.5. However, given no clinical improvement, D-dimer ordered and was WNL. Continue Supplemental O2 to maintain sats above 90%. Encourage pt. to get OOB and ambulate. PT and OT ordered Duonebs q4 hrs scheduled. Will alternate with Albuterol q4hr so that he is getting treatments every 2 hours. Note that these treatments may cause tachycardia Solu-Medrol 125 mg IV Solu-Medrol 60 mg IV every 6 hours (05/22 - ____) Lasix 60 mg IV 1 given in ED. Lasix 40 mg PO twice a day, patient is getting adequate diuresis with this regimen Protonix 40 mg PO daily for GI protection and decrease chances of aspiration pneumonia. Azithromycin 500 mg PO 1, then 250 mg PO q24 hrs (x 5-7 days). Tylenol PRN. Added Rocephin 05/22 Mucinex 600 mg tab PO BID PRN congestion. Dextromethorphan PRN cough. Incentive spirometer. DISPO: -Discharge pending clinical improvement -Plan for pt to have a total of 5 day course of Azithro and Rocephin. Plan to also send pt. with COPD meds and a 2 week steroid taper to decrease the chances of another flare-up. -Consider eval. for home O2 therapy prior to d/c. CM assisting. -Pt. will need f/u with PCP and with solar system designer as an outpatient. (2) Congestive heart failure Status: Acute Plan: Possible exacerbation. Plan as above COPD exacerbation. BNP is notable to be 749 this admission, was 339 one month ago. Echocardiogram showing EF 5055% in April 2016, normal systolic function, normal wall thickness, normal wall motion without any regional wall motion abnormalities. Normal pulmonary artery pressure. He had 2+ edema of the lower extremities at admission, improving. Hospital course: -Elevate legs, SCDs -Trended troponin, EKG, CK - negative for signs of acute ischemic event. -Lasix as above -Continue medical management of CHF to include beta lynnette, statin, aspirin (3) Atrial flutter with rapid ventricular response Status: Acute Plan: Diagnosed April 2016. Discharge from the hospital on Cardizem 240 mg daily and Eliquis is 5 mg daily. Unclear whether the patient was taking these medications. In ED on admission, required multiple IV medications to control rate, which was originally in the 170s reported by [facility]. Rate is currently in the 80s-90s. Adenosine 2, Cardizem 2, digoxin 1 administered. Cardizem drip was initiated in the ED. -Cardiology consulted, placed patient on amiodarone and Cardizem drips initially , restarted Eliquis. Patient required additional boluses of Cardizem and digoxin on 05/21. Currently rate controlled on PO amiodarone 400mg daily and PO Cardizem 360 mg daily. (4) Hypertension Status: Chronic Plan: Chronic, stable. BP 140s-160s SBP on admission Continue home dose lisinopril 10 mg daily Vasotec 0.125mg IV q8h PRN SBP >180, DBP >100 (5) Tobacco abuse Status: Acute Plan: Nicotine patch (6) Alcohol abuse Status: Acute Plan: CIWA protocol (7) Fluids/Electrolytes/Nutrition/Prophylaxis Status: Acute Plan: Fluids: Caution IVF given fluid overloaded Electrolytes: monitor and replete as needed Nutrition: heart-healthy diet DVT Prophylaxis:Eliquis/bilateral SCDs GI Prophylaxis: Protonix 40mg PO daily wdw Dr. Alejandro. (Cammy Bettencourt MD R1) Problem Qualifiers (1) Congestive heart failure: Qualified Code: I50.9 - Congestive heart failure, unspecified congestive heart failure chronicity, unspecified congestive heart failure type (2) Hypertension: Qualified Code: I10 - Essential hypertension Cammy Bettencourt MD R1 May 24, 2016 10:55 Taco Alejandro MD May 24, 2016 16:36
[2016-05-24] MEDS ORDERED: DEXTROMETHORPHAN SYRUP 7.5MG/5ML UDC PO PRN (14:45)
[2016-05-24] MEDS: cefTRIAXone INJ 1,000 MG in SODIUM CHLORIDE 0.9% INJ 100 ML IV SCH (16:52)
--- NOTE | 2016-05-24 19:18 | HHI.PR ---
Subjective Remarks SOB and and weak. On O2 4l. C/O Cough and wheezing. Objective Vital Signs Date Time Temp Pulse Resp B/P Pulse Ox O2 Delivery O2 Flow Rate FiO2 05/24/16 18:01 82 05/24/16 17:00 82 05/24/16 16:00 82 05/24/16 15:45 98 Nasal Cannula 2.00 05/24/16 15:45 97.8 85 24 123/76 99 05/24/16 15:01 84 05/24/16 14:01 84 05/24/16 13:00 84 05/24/16 12:00 84 05/24/16 11:45 98 Nasal Cannula 2.00 05/24/16 11:45 97.9 86 22 133/73 99 05/24/16 11:00 84 05/24/16 10:00 90 05/24/16 09:00 84 05/24/16 08:45 98.0 85 22 146/76 98 05/24/16 08:45 98 Nasal Cannula 2.00 05/24/16 08:02 98 Nasal Cannula 1.00 05/24/16 08:00 84 05/24/16 07:00 84 05/24/16 06:00 80 05/24/16 05:00 80 05/24/16 04:07 84 05/24/16 04:07 98 Nasal Cannula 2.00 05/24/16 04:00 98.3 82 22 107/56 98 05/24/16 03:46 98 Nasal Cannula 2.00 05/24/16 03:00 80 05/24/16 02:00 80 05/24/16 01:00 80 05/24/16 00:21 99 Nasal Cannula 2.00 05/24/16 00:00 98.1 84 22 110/63 98 05/24/16 00:00 98 Nasal Cannula 2.00 05/24/16 00:00 80 05/23/16 23:00 80 05/23/16 22:00 80 05/23/16 21:00 82 05/23/16 20:00 98.1 82 24 142/82 98 05/23/16 20:00 98 Nasal Cannula 2.00 05/23/16 20:00 80 I/O 05/23/16 05/23/16 05/23/16 05/24/16 05/24/16 05/24/16 07:00 15:00 23:00 07:00 15:00 23:00 Intake Total 620 ml 360 ml 1200 ml 420 ml 1040 ml Output Total 1700 ml 600 ml 425 ml 1000 ml 1025 ml Balance -1080 ml -240 ml 775 ml -580 ml 15 ml Intake Oral 420 ml 360 ml 1200 ml 420 ml 942 ml IV Total 200 ml 98 ml Output Urine Total 1700 ml 600 ml 425 ml 1000 ml 1025 ml # Voids 4 # Bowel Movements 0 1 1 0 2 Result Diagram: 05/24/16 0610 05/24/16609 Objective Remarks GENERAL: This is a well-built elderly white male in no acute distress. No pallor, icterus, cyanosis or lymphadenopathy. HEENT: Head is normocephalic. Pupils are reactive. Tongue is moist. Throat is clear. Nasal mucosa is edematous. NECK: There is no venous distension. No thyromegaly. CHEST: Decreased breath sounds at the bases with expiratory wheezes throughout both lung chen. Prolonged expirations. HEART: The heart sounds are irregularly irregular, S1 and S2, with no murmur and no S3. ABDOMEN: Soft, protuberant without masses. No organomegaly or tenderness. The bowel sounds are active. EXTREMITIES: Edema 1+. Decreased pulses. Reflexes are1+with no gross motor deficits. NEUROLOGIC: Cranial nerves are grossly intact. SKIN: No lesions. Assessment and Plan Assessment and Plan IMPRESSION 1. COPD with acute exacerbation. 2. CHF and ASHD. 3. Hyperlipidemia. 4. 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 Plan : 1. Cont antibiotics. 2. O2 at 2 L. 3. Nebs qid , duoneb. 4. Solumedrol 40 mg Q8H. 5. Needs PET CT as OP for lung nodules. 6. PFT this week. 7. BiPAP 12/5 CM 30 % at HS Erwin Willson MD May 24, 2016 19:18
[2016-05-24] MEDS: methylPREDNISolone SOD SUCC 40 MG/1 ML VIAL IVP SCH (20:59)
[2016-05-24] MEDS: REMOVE OLD NICODERM (NICOTINE) PATCH TD SCH (21:00)
[2016-05-25] VITALS (11 sets, daily range): BP systolic 125–154; BP diastolic 58–88; PULSE 82–87; RESP 18–24; TEMP 97.5–98.4; O2SAT 95–100
[2016-05-25] MEDS: RESP: ALBUTEROL 2.5 MG/3 ML NEB (SCH) INH ×4 (00:33→23:55)
[2016-05-25] MEDS: methylPREDNISolone SOD SUCC 40 MG/1 ML VIAL IVP SCH ×3 (03:18→20:33)
[2016-05-25 06:16] LABS: AUTOMATED NEUTROPHIL # 7.9 TH/MM3 (1.8-7.7); BASOPHIL % 0.3 % (0.0-2.0); HEMATOCRIT 36.3 % (39.0-51.0); HEMO FLAGS DIFF FINAL; LYMPH % 2.7 % (9.0-44.0); LYMPHOCYTE # 0.2 TH/MM3 (1.0-4.8); MEAN CELL VOLUME 93.3 FL (80.0-100.0); MEAN CORPUSCULAR HEMOGLOBIN 31.9 PG (27.0-34.0); MEAN CORPUSCULAR HGB CONC 34.2 % (32.0-36.0); MONO % 5.5 % (0.0-8.0); NEUT % 91.5 % (16.0-70.0); PLATELET COUNT 301 TH/MM3 (150-450); RED BLOOD COUNT 3.89 MIL/MM3 (4.50-5.90); RED CELL DISTRIBUTION WIDTH 15.1 % (11.6-17.2); WHITE BLOOD COUNT 8.7 TH/MM3 (4.0-11.0)
[2016-05-25 06:48] LABS: BICARBONATE 35.4 MEQ/L (21.0-32.0)
[2016-05-25] MEDS: RESP: ALBUTEROL 2.5 MG/IPRATROPIUM 0.5 MG NEB (SCH) INH ×4 (07:55→20:34)
--- NOTE | 2016-05-25 08:05 | HHI.FPPN ---
Subjective Remarks Patient was seen and examined this morning. No acute overnight events reported. His shortness of breath is a little better but still not where he can walk without overexertion. He makes it to bathroom and back on his own. He denies fevers, chills, chest pain, nausea, vomiting. Normal bowel movements. He is urinating into the toilet so Is and Os not accurate. Had bowel movement yesterday. Eating without difficulty. 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 Objective Vitals Vital Signs Date Time Temp Pulse Resp B/P Pulse Ox O2 Delivery O2 Flow Rate FiO2 05/25/16 04:36 98 30 05/25/16 04:36 98 BiPAP 30 05/25/16 04:32 97.7 84 20 154/88 99 05/25/16 02:54 99 30 05/25/16 00:39 99 CPAP 30 05/24/16 22:34 97.7 85 20 139/71 97 05/24/16 22:33 98 30 05/24/16 22:30 Nasal Cannula 3.50 Bi-Pap 05/24/16 20:55 99 Nasal Cannula 3.00 05/24/16 20:00 98.3 74 22 118/63 98 05/24/16 18:01 82 05/24/16 17:00 82 05/24/16 16:00 82 05/24/16 15:45 98 Nasal Cannula 2.00 05/24/16 15:45 97.8 85 24 123/76 99 05/24/16 15:01 84 05/24/16 14:01 84 05/24/16 13:00 84 05/24/16 12:00 84 05/24/16 11:45 98 Nasal Cannula 2.00 05/24/16 11:45 97.9 86 22 133/73 99 05/24/16 11:00 84 05/24/16 10:00 90 05/24/16 09:00 84 05/24/16 08:45 98.0 85 22 146/76 98 05/24/16 08:45 98 Nasal Cannula 2.00 I/O 05/24/16 05/24/16 05/24/16 05/25/16 05/25/16 05/25/16 07:00 15:00 23:00 07:00 15:00 23:00 Intake Total 420 ml 1040 ml 440 ml Output Total 1000 ml 1025 ml 425 ml Balance -580 ml 15 ml 15 ml Intake Oral 420 ml 942 ml 440 ml IV Total 98 ml Output Urine Total 1000 ml 1025 ml 425 ml Stool Total 0 ml # Voids 4 # Bowel Movements 0 2 Result Diagram: 05/25/16 0504 05/25/16 0504 Imaging Last Impressions Chest CT 05/23/16 1321 Signed Impressions: Service Date/Time: May 14:30 - CONCLUSION: Scattered small nodular densities in the right lung which are nonspecific. Direct comparison to previous exams this patient with history of lung cancer would be recommended. Mild mediastinal srikanth prominence Arash Chatman MD Chest X-Ray 05/23/16 0000 Signed Impressions: Service Date/Time: May 08:06 - CONCLUSION: 1. Elevation of the right hemidiaphragm. 2. No acute focal pulmonary infiltrate or pulmonary vascular congestion Rigoberto Castro MD Lower Extremity Ultrasound 05/21/16 0000 Signed Impressions: Service Date/Time: Saturday, May 21, 2016 11:37 - CONCLUSION: No evidence of deep venous thrombosis within the right lower extremity. Rigoberto Castro MD Objective Remarks GENERAL: Well developed, well-nourished elderly male. Not diaphoretic. Not anxious appearing on 2L nasal cannula. Receiving breathing treatment. EYES: PERRLA. EOMI. Lids and conjunctivae reveal no gross abnormality. No scleral icterus. ENT: Hearing adequate. Head NCAT. MMM. OP/OC clear. No cervical or supraclavicular LAD. NECK: No JVD. No carotid bruits. Neck supple, no masses. Trachea midline. No thyromegaly. RESPIRATORY: No evidence of pulmonary edema. Respiratory rate approximately 20. No wheezes today, improved overall air movement. CARDIOVASCULAR: Irregularly irregular rhythm. Heart rate is 90s on telemetry. Radial and DP pulses 2+ and symmetric bilaterally. Brisk capillary refill. ABDOMEN: S/NT/ND. Bowel sounds present in all quadrants. No masses or pulsations present. EXTREMITIES: Lower extremities notable for 2+ edema to the reilly, right slightly worse than left. No clubbing, cyanosis, or erythema. MUSCULOSKELETAL: No obvious bony deformities or joint pain. Strength 5/5 in upper and lower extremities. No calf tenderness. SKIN: No evidence of cellulitis, ecchymoses. Adequate skin turgor. NEUROLOGICAL: Awake and alert. No obvious cranial nerve deficits. Motor grossly within normal limits. Five out of 5 muscle strength in the arms and legs. Normal speech. PSYCHIATRIC: Appropriate mood and affect; insight and judgment normal. Medications and IVs Inpatient Medications Acetaminophen (Tylenol) 650 mg Q4H PRN PO PAIN 1-10 AND/OR FEVER >101F; Start 05/21/16 at 21:45 Albuterol Sulfate (Albuterol Neb) 2.5 mg Q4HR NEB INH Last administered on 04:33; Start 05/23/16 at 12:00 Albuterol/ Ipratropium (Duoneb Neb) 1 ampule Q4HR WHILE AWAKE NEB INH Last administered on 05/25/16 07:55; Start 05/23/16 at 16:00 Amiodarone HCl (Cordarone) 200 mg DAILY PO Last administered on 05/24/16 09:33 ; Start 05/24/16 at 09:00 Amiodarone HCl 150 mg/Dextrose 100 ml @ 600 mls/hr ONCE ONCE IV Last administered on 05/21/16 18:00; Start 05/21/16 at 16:00; Stop 05/21/16 at 16:09 ; Status DC Amiodarone HCl/ Dextrose (Cordarone Inj/ D5W ([place]) Inj) 250 ml @ 0 mls/hr CONTINUOUS IV Last administered on 05/22/16 18:33; Start 05/21/16 at 16:00; Stop 05/23/16 at 08:43; Status DC Amiodarone HCl/ Dextrose (Cordarone Inj/ D5W 100 ml Inj) 100 ml @ 600 mls/hr ONCE ONCE IV Last administered on 05/22/16 09:11; Start 05/22/16 at 08:30; Stop 05/22/16 at 08:39; Status DC Apixaban 5 mg 5 mg BID PO Last administered on 05/24/16 20:59; Start 05/21/16 at 21:00 Aspirin (Aspirin Chew) 162 mg ONCE ONCE PO Last administered on 05/21/16 11: 37; Start 05/21/16 at 11:30; Stop 05/21/16 at 11:31; Status DC Aspirin (Ecotrin Ec) 162 mg DAILY PO ; Start 05/22/16 at 09:00; Stop 05/22/16 at 09:00; Status DC Azithromycin (Zithromax) 250 mg DAILY PO Last administered on 05/24/16 09:33; Start 05/22/16 at 17:00 Budesonide/ Formoterol Fumarate (Symbicort 160-4.5 Inh) 2 puff Q12HR INH Last administered on 05/24/16 21:00; Start 05/22/16 at 09:00 Buspirone HCl (Buspar) 5 mg TID PO Last administered on 05/24/16 16:51; Start 05/22/16 at 09:00 Ceftriaxone Sodium/Sodium Chloride (Rocephin Inj/NS Inj) 100 ml @ 200 mls/hr Q24H IV Last administered on 05/24/16 16:52; Start 05/22/16 at 15:00 Dextromethorphan (Robitussin La Pediatric Cough Liq) 7.5 mg Q6H PRN PO cough ; Start 05/24/16 at 14:45 Digoxin (Lanoxin Inj) 0.5 mg NOW ONCE IV PUSH Last administered on 05/22/16 11:11; Start 05/22/16 at 11:00; Stop 05/22/16 at 11:01; Status DC Diltiazem HCl (Cardizem Cd) 360 mg DAILY PO Last administered on 05/24/16 09: 34; Start 05/23/16 at 09:00 Diltiazem HCl (Cardizem Inj) 25 mg ONCE ONCE IV Last administered on 11:36; Start 05/21/16 at 11:30; Stop 05/21/16 at 11:31; Status DC Diltiazem HCl 240 mg 240 mg DAILY PO Last administered on 05/22/16 09:29; Start 05/22/16 at 09:00; Stop 05/23/16 at 08:44; Status DC Diltiazem HCl/ Sodium Chloride (Cardizem Inj/NS Inj) 125 ml @ 0 mls/hr TITRATE IV Last administered on 05/21/16 12:32; Start 05/21/16 at 11:30; Stop at 08:24; Status DC Enalaprilat (Vasotec Inj) 1.25 mg Q8H PRN IV PUSH SBP>180, DBP>100; Start at 22:00 Enoxaparin Sodium (Lovenox Inj) 40 mg Q24H SQ Last administered on 05/21/16 15 :51; Start 05/21/16 at 15:00; Stop 05/21/16 at 16:02; Status DC Flumazenil (Romazicon Inj) 0.2 mg Q1M PRN IV PUSH SEE LABEL COMMENTS; Start at 14:15 Furosemide (Lasix Inj) 40 mg DAILY IV PUSH Last administered on 05/23/16 08:47 ; Start 05/23/16 at 09:00; Stop 05/23/16 at 09:02; Status DC Furosemide (Lasix) 40 mg BID@09,18 PO Last administered on 05/24/16 16:51; Start 05/23/16 at 18:00 Guaifenesin (Robitussin Liq) 200 mg QID PO Last administered on 05/24/16 20:59 ; Start 05/22/16 at 09:00 IV Flush (NS Flush) 2 ml UNSCH PRN IVF FLUSH AFTER USING IV ACCESS; Start 05/21 at 11:30; Stop 05/21/16 at 14:20; Status DC Lisinopril (Prinivil) 10 mg DAILY PO Last administered on 05/24/16 09:33; Start 05/22/16 at 09:00 Lorazepam (Ativan Inj) 0.5 mg ONCE ONCE IV PUSH Last administered on 01:24; Start 05/22/16 at 00:30; Stop 05/22/16 at 00:31; Status DC Lorazepam (Ativan) 2 mg Q2H PRN PO [facility] -14; Start 05/21/16 at 14:15 Methylprednisolone Sodium Succinate (SoluMEDROL INJ) 40 mg Q6H IVP Last administered on 05/25/16 03:18; Start 05/24/16 at 21:00 Methylprednisolone Sodium Succinate 60 mg 60 mg Q6H IVP Last administered on 16:52; Start 05/22/16 at 15:00; Stop 05/24/16 at 19:15; Status DC Miscellaneous Information 1 HS TD Last administered on 05/24/16 21:00; Start 05/22/16 at 21:00 Naloxone HCl (Narcan Inj) 0.4 mg UNSCH PRN IV SEE LABEL COMMENTS; Start at 14:15 Nicotine (Habitrol 21 Mg Patch.24 Hr) 1 patch DAILY TD Last administered on 09:37; Start 05/22/16 at 09:00 Nitroglycerin (Nitroglycerin 2% Oint) 1 inch ONCE ONCE TOP Last administered on 05/21/16 12:32; Start 05/21/16 at 11:30; Stop 05/21/16 at 16:02; Status DC Ondansetron HCl (Zofran Inj) 4 mg Q6H PRN IVP NAUSEA OR VOMITING; Start at 14:15 Pantoprazole Sodium (Protonix) 40 mg DAILY PO Last administered on 05/24/16 09 :33; Start 05/22/16 at 09:00 Prednisone (Deltasone) 40 mg DAILY PO ; Start 05/22/16 at 09:00; Stop 05/22/16 at 09:00; Status DC Sodium Chloride (NS Flush) 2 ml BID IV FLUSH Last administered on 05/24/16 21: 00; Start 05/21/16 at 21:00 Thiamine HCl (Vitamin B1) 100 mg DAILY PO Last administered on 05/24/16 09:33 ; Start 05/22/16 at 09:00 Tiotropium Vance (Spiriva Inh) 18 mcg DAILY INH Last administered on 09:36; Start 05/22/16 at 09:00 A/P Assessment and Plan 71 year old male [place] patient with history of atrial flutter admitted for symptomatic atrial flutter, COPD exacerbation, and chest pain work-up. Discharge Planning Pending clinical improvement, possibly 2 days. Of note, PT recommends rehab for this patient. Problem List: (1) COPD exacerbation Status: Acute Plan: Patient medically with shortness of breath and symptomatic atrial flutter. He continues to require regular breathing treatments and supplemental oxygen. He was started on Symbicort 05/23/16. Transferred to med-surg floor from [facility] on 05/24 Hospital Course: PMH significant for smoking and right lower lung resection. Pulmonology consulted, we appreciate their assistance in management - Advair HFA 115 at 2 puffs twice per day was added to regimen. BiPap hs as ordered by Dr. Mohan PFTs ordered to be done inpatient Rehab placement recommended by PT On admission, WBC 10.4, neutrophil 89%, not clearly indicative of infection. Admission EKG showing afib as discussed elsewhere. BNP 749. Bicarb not elevated. Admission CXR showed chronic elevation of the right hemidiaphragm. We'll repeat during hospital stay. Re: possibility of PE, Wells score is 1.5. However, given no clinical improvement, D-dimer ordered and was WNL. Continue Supplemental O2 to maintain sats above 90%. Encourage pt. to get OOB and ambulate. PT and OT ordered Duonebs q4 hrs scheduled. Will alternate with Albuterol q4hr so that he is getting treatments every 2 hours. Note that these treatments may cause tachycardia Solu-Medrol 125 mg IV Solu-Medrol 60 mg IV every 6 hours 05/22-05/24, decreased to 40mg IV q6h on 05/24 Lasix 60 mg IV 1 given in ED. Lasix 40 mg PO twice a day, patient is getting adequate diuresis with this regimen Protonix 40 mg PO daily for GI protection and decrease chances of aspiration pneumonia. Azithromycin 500 mg PO 1, then 250 mg PO q24 hrs (x 5-7 days). Tylenol PRN. Added Rocephin 05/22, continue Mucinex 600 mg tab PO BID PRN congestion. Dextromethorphan PRN cough. Incentive spirometer. DISPO: -Discharge pending clinical improvement -Plan for pt to have a total of 5 day course of Azithro and Rocephin. Plan to also send pt. with COPD meds and a 2 week steroid taper to decrease the chances of another flare-up. -Consider eval. for home O2 therapy prior to d/c. CM assisting. -Pt. will need f/u with PCP and with lamination spinner as an outpatient. (2) Congestive heart failure Status: Acute Plan: Possible exacerbation. Plan as above COPD exacerbation. BNP is notable to be 749 this admission, was 339 one month ago. Echocardiogram showing EF 5055% in April 2016, normal systolic function, normal wall thickness, normal wall motion without any regional wall motion abnormalities. Normal pulmonary artery pressure. He had 2+ edema of the lower extremities at admission, improving. Hospital course: -Elevate legs, SCDs -Trended troponin, EKG, CK - negative for signs of acute ischemic event. -Lasix as above -Continue medical management of CHF to include beta lynnette, statin, aspirin (3) Atrial flutter with rapid ventricular response Status: Acute Plan: Diagnosed April 2016. Discharge from the hospital on Cardizem 240 mg daily and Eliquis is 5 mg daily. Unclear whether the patient was taking these medications. In ED on admission, required multiple IV medications to control rate, which was originally in the 170s reported by [facility]. Rate is currently in the 80s-90s. Adenosine 2, Cardizem 2, digoxin 1 administered. Cardizem drip was initiated in the ED. -Cardiology consulted, placed patient on amiodarone and Cardizem drips initially , restarted Eliquis. Patient required additional boluses of Cardizem and digoxin on 05/21. -Currently rate controlled on PO amiodarone and PO Cardizem, dosing titrated by cardiology to amio 200mg daily and cardizem 360mg daily for discharge -No acute telemetry events (4) Hypertension Status: Chronic Plan: Chronic, stable. BP 140s-160s SBP on admission Continue home dose lisinopril 10 mg daily Vasotec 0.125mg IV q8h PRN SBP >180, DBP >100 (5) Tobacco abuse Status: Acute Plan: Nicotine patch (6) Alcohol abuse Status: Chronic Plan: CIWA protocol, will discontinue given no symptoms (7) Fluids/Electrolytes/Nutrition/Prophylaxis Status: Acute Plan: Fluids: Caution IVF given fluid overloaded Electrolytes: monitor and replete as needed Nutrition: heart-healthy diet DVT Prophylaxis:Eliquis/bilateral SCDs GI Prophylaxis: Protonix 40mg PO daily wdw Dr. Alejandro. Problem Qualifiers (1) Congestive heart failure: Qualified Code: I50.9 - Congestive heart failure, unspecified congestive heart failure chronicity, unspecified congestive heart failure type (2) Hypertension: Qualified Code: I10 - Essential hypertension Cammy Bettencourt MD R1 May 25, 2016 08:05
[2016-05-25] MEDS: NICOTINE 21 MG/24 HR PATCH TD SCH (09:25)
[2016-05-25] MEDS: LISINOPRIL 10 MG TAB PO SCH (09:25)
[2016-05-25] MEDS: guaiFENesin SOLUTION 200 MG/10 ML CUP PO SCH ×4 (09:25→20:33)
[2016-05-25] MEDS: AZITHROMYCIN 250 MG TAB PO SCH (09:25)
[2016-05-25] MEDS: DILTIAZEM-CD 180 MG CAP ER PO SCH (09:26)
[2016-05-25] MEDS: busPIRone HCL 5 MG TAB PO SCH ×3 (09:26→18:18)
[2016-05-25] MEDS: SODIUM CHLORIDE 0.9% FLUSH 10 ML FLUSH IV FLUSH SCH ×2 (09:26→20:36)
[2016-05-25] MEDS: APIXABAN 5 MG TABLET PO SCH ×2 (09:26→20:33)
[2016-05-25] MEDS: PANTOPRAZOLE SOD 40 MG DELAYED RELEASE TAB PO SCH (09:26)
[2016-05-25] MEDS: THIAMINE HCL 100 MG TAB PO SCH (09:26)
[2016-05-25] MEDS: FUROSEMIDE 40 MG TAB PO SCH ×2 (09:26→18:18)
[2016-05-25] MEDS: TIOTROPIUM BROMIDE 18 MCG INH INH SCH (09:27)
[2016-05-25] MEDS: BUDESONIDE-FORMOTEROL 160/4.5 MCG INHALER INH SCH ×2 (09:27→20:35)
[2016-05-25] MEDS: AMIODARONE 200 MG TAB PO SCH (09:28)
--- NOTE | 2016-05-25 12:45 | HHI.PR ---
Subjective Remarks Seems depressed.C/O SOB and and weakness. On O2 4l. C/O wheezing. CXR is better. Objective Vital Signs Date Time Temp Pulse Resp B/P Pulse Ox O2 Delivery O2 Flow Rate FiO2 05/25/16 12:00 98.0 87 24 129/66 100 05/25/16 10:46 97 Nasal Cannula 3.50 05/25/16 08:00 98.3 85 22 140/72 100 05/25/16 07:55 97 Nasal Cannula 3.00 05/25/16 04:36 98 30 05/25/16 04:36 98 BiPAP 30 05/25/16 04:32 97.7 84 20 154/88 99 05/25/16 02:54 99 30 05/25/16 00:39 99 CPAP 30 05/24/16 22:34 97.7 85 20 139/71 97 05/24/16 22:33 98 30 05/24/16 22:30 Nasal Cannula 3.50 Bi-Pap 05/24/16 22:28 84 05/24/16 20:55 99 Nasal Cannula 3.00 05/24/16 20:00 98.3 74 22 118/63 98 05/24/16 18:01 82 05/24/16 17:00 82 05/24/16 16:00 82 05/24/16 15:45 98 Nasal Cannula 2.00 05/24/16 15:45 97.8 85 24 123/76 99 05/24/16 15:01 84 05/24/16 14:01 84 05/24/16 13:00 84 I/O 05/24/16 05/24/16 05/24/16 05/25/16 05/25/16 05/25/16 07:00 15:00 23:00 07:00 15:00 23:00 Intake Total 420 ml 1040 ml 440 ml Output Total 1000 ml 1025 ml 425 ml Balance -580 ml 15 ml 15 ml Intake Oral 420 ml 942 ml 440 ml IV Total 98 ml Output Urine Total 1000 ml 1025 ml 425 ml Stool Total 0 ml # Voids 4 # Bowel Movements 0 2 Result Diagram: 05/25/16 0504 05/25/16 0504 Objective Remarks GENERAL: This is a well-built elderly white male in no acute distress. No pallor, icterus, cyanosis or lymphadenopathy. HEENT: Head is normocephalic. Pupils are reactive. Tongue is moist. Throat is clear. Nasal mucosa is clear. NECK: There is no venous distension. No thyromegaly. CHEST: Decreased breath sounds at the bases with expiratory wheezes throughout both lung chen. HEART: The heart sounds are irregularly irregular, S1 and S2, with no murmur and no S3. ABDOMEN: Soft, protuberant without masses. No organomegaly or tenderness. The bowel sounds are active. EXTREMITIES: Edema 1+. Decreased pulses. Reflexes are1+with no gross motor deficits. NEUROLOGIC: Cranial nerves are grossly intact. SKIN: No lesions. Assessment and Plan Assessment and Plan IMPRESSION 1. COPD with acute exacerbation. 2. CHF and ASHD. 3. Hyperlipidemia. 4. 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 Plan : 1. Cont antibiotics. 2. O2 at 3 L. Arrange home O2 3. Nebs qid , duoneb. 4. Solumedrol 40 mg Q12H. and switch to prednisone in am 30 mg daily. 5. Needs PET CT as OP for lung nodules. 6. IS at bedside q2h. 7. BiPAP 12/5 CM 30 % at HS and wean Off bipap in am 8. Needs Sleep study as OP Erwin Willson MD May 25, 2016 12:45
[2016-05-25] MEDS: cefTRIAXone INJ 1,000 MG in SODIUM CHLORIDE 0.9% INJ 100 ML IV SCH (16:31)
[2016-05-25] MEDS: REMOVE OLD NICODERM (NICOTINE) PATCH TD SCH (20:37)
[2016-05-26] VITALS (10 sets, daily range): BP systolic 113–170; BP diastolic 56–80; PULSE 78–92; RESP 18–23; TEMP 97.9–98.7; O2SAT 94–100
[2016-05-26] MEDS: RESP: ALBUTEROL 2.5 MG/3 ML NEB (SCH) INH ×4 (01:56→15:52)
[2016-05-26 06:36] LABS: BICARBONATE 33.5 MEQ/L (21.0-32.0); POTASSIUM 4.3 MEQ/L (3.5-5.1)
--- NOTE | 2016-05-26 06:53 | RADRPT ---
EXAM DATE/TIME: 05/26/2016 06:01 [place] COMPARISON: CHEST SINGLE AP, May 23, 2016, 8:06. INDICATIONS : Pneumonia. MEDICAL HISTORY : None. SURGICAL HISTORY : None. ENCOUNTER: Initial ACUITY: 1 day PAIN SCORE: 5/10 LOCATION: Bilateral chest FINDINGS: A single view of the chest demonstrates the lungs to be symmetrically aerated without evidence of mas s, infiltrate or effusion. Elevation the right hemidiaphragm. The cardiomediastinal contours are unre markable. Osseous structures are intact. CONCLUSION: No acute disease. Antwan Reeves Jr., MD on May 26, 2016 at 6:51 Board Certified Radiologist. This report was verified electronically.
[2016-05-26 07:22] LABS: AUTOMATED NEUTROPHIL # 7.6 TH/MM3 (1.8-7.7); BASOPHIL % 0.1 % (0.0-2.0); HEMATOCRIT 36.9 % (39.0-51.0); LYMPH % 2.6 % (9.0-44.0); LYMPHOCYTE # 0.2 TH/MM3 (1.0-4.8); MEAN CORPUSCULAR HGB CONC 32.9 % (32.0-36.0); NEUT % 89.3 % (16.0-70.0); PLATELET COUNT 243 TH/MM3 (150-450); RED BLOOD COUNT 3.93 MIL/MM3 (4.50-5.90); WHITE BLOOD COUNT 8.5 TH/MM3 (4.0-11.0)
[2016-05-26 08:16] LABS: HEMO FLAGS AUTO DIFF
[2016-05-26] MEDS: methylPREDNISolone SOD SUCC 40 MG/1 ML VIAL IVP SCH (09:08)
[2016-05-26] MEDS: DILTIAZEM-CD 180 MG CAP ER PO SCH (09:09)
[2016-05-26] MEDS: AZITHROMYCIN 250 MG TAB PO SCH (09:09)
[2016-05-26] MEDS: THIAMINE HCL 100 MG TAB PO SCH (09:09)
[2016-05-26] MEDS: AMIODARONE 200 MG TAB PO SCH (09:09)
[2016-05-26] MEDS: LISINOPRIL 10 MG TAB PO SCH (09:09)
[2016-05-26] MEDS: PANTOPRAZOLE SOD 40 MG DELAYED RELEASE TAB PO SCH (09:09)
[2016-05-26] MEDS: APIXABAN 5 MG TABLET PO SCH ×2 (09:09→22:03)
[2016-05-26] MEDS: FUROSEMIDE 40 MG TAB PO SCH ×2 (09:09→18:08)
[2016-05-26] MEDS: busPIRone HCL 5 MG TAB PO SCH ×3 (09:09→18:08)
[2016-05-26] MEDS: NICOTINE 21 MG/24 HR PATCH TD SCH (09:10)
[2016-05-26] MEDS: guaiFENesin SOLUTION 200 MG/10 ML CUP PO SCH ×4 (09:10→22:03)
[2016-05-26] MEDS: SODIUM CHLORIDE 0.9% FLUSH 10 ML FLUSH IV FLUSH SCH ×2 (09:18→21:00)
[2016-05-26] MEDS: BUDESONIDE-FORMOTEROL 160/4.5 MCG INHALER INH SCH ×2 (09:18→21:00)
[2016-05-26] MEDS: RESP: ALBUTEROL 2.5 MG/IPRATROPIUM 0.5 MG NEB (SCH) INH ×2 (09:54→19:07)
[2016-05-26 10:46] LABS: SCAN/DIFF AUTO DIFF CONFIRMED
[2016-05-26] MEDS: TIOTROPIUM BROMIDE 18 MCG INH INH SCH (12:00)
--- NOTE | 2016-05-26 12:19 | HHI.FPPN ---
Subjective Remarks Patient reports he feels a little better today. Out of breath with any walking. He works with PT daily. Per nursing staff, he has had no complaints and has been eating and drinking without difficulty. He denies fever, chills, nausea, vomiting, palpitations. He states he has continuous chronic chest pain due to his difficulty breathing. (Cammy Bettencourt MD R1) Objective Vitals Vital Signs Date Time Temp Pulse Resp B/P Pulse Ox O2 Delivery O2 Flow Rate FiO2 05/26/16 09:54 97 Nasal Cannula 3.00 05/26/16 08:00 98.3 92 20 170/79 97 05/26/16 06:00 78 20 142/68 96 05/26/16 00:00 80 20 113/56 100 05/25/16 20:44 95 30 05/25/16 20:00 Nasal Cannula 3.50 05/25/16 20:00 83 05/25/16 20:00 97.5 82 18 131/71 97 05/25/16 16:00 98.4 82 24 125/58 100 I/O 05/25/16 05/25/16 05/25/16 05/26/16 05/26/16 05/26/16 07:00 15:00 23:00 07:00 15:00 23:00 Intake Total 440 ml 100 ml Output Total 425 ml 350 ml Balance 15 ml -250 ml Intake Oral 440 ml IV Total 100 ml Output Urine Total 425 ml 350 ml Stool Total 0 ml # Bowel Movements 0 (Cammy Bettencourt MD R1) Result Diagram: 05/26/16 0552 05/26/16 0552 Imaging Last Impressions Chest X-Ray 05/26/16 0600 Signed Impressions: Service Date/Time: Thursday, May 26, 2016 06:01 - CONCLUSION: No acute disease. Antwan Reeves Jr., MD Chest CT 05/23/16 1321 Signed Impressions: Service Date/Time: May 14:30 - CONCLUSION: Scattered small nodular densities in the right lung which are nonspecific. Direct comparison to previous exams this patient with history of lung cancer would be recommended. Mild mediastinal srikanth prominence Arash Chatman MD Lower Extremity Ultrasound 05/21/16 0000 Signed Impressions: Service Date/Time: Saturday, May 21, 2016 11:37 - CONCLUSION: No evidence of deep venous thrombosis within the right lower extremity. Rigoberto Castro MD Objective Remarks GENERAL: Well developed, well-nourished elderly male. Not diaphoretic. Not anxious appearing on 3L nasal cannula. EYES: PERRLA. EOMI. Lids and conjunctivae reveal no gross abnormality. No scleral icterus. ENT: Hearing adequate. Head NCAT. MMM. OP/OC clear. No cervical or supraclavicular LAD. NECK: No JVD. No carotid bruits. Neck supple, no masses. Trachea midline. No thyromegaly. RESPIRATORY: No evidence of pulmonary edema. Respiratory rate approximately 18. No wheezes, improved overall air movement. CARDIOVASCULAR: Telemetry reviewed; HR 90 with regular rhythm. Radial and DP pulses 2+ and symmetric bilaterally. Brisk capillary refill. ABDOMEN: Bowel sounds present in all quadrants. Nontender. No masses or pulsations present. EXTREMITIES: Lower extremities notable for 2+ edema to the reilly, right slightly worse than left. No clubbing, cyanosis, or erythema. MUSCULOSKELETAL: No obvious bony deformities or joint pain. Strength 5/5 in upper and lower extremities. No calf tenderness. SKIN: No evidence of cellulitis, ecchymoses. Adequate skin turgor. NEUROLOGICAL: Awake and alert. No obvious cranial nerve deficits. Motor grossly within normal limits. Five out of 5 muscle strength in the arms and legs. Normal speech. PSYCHIATRIC: Appropriate mood and affect; insight and judgment normal. Medications and IVs Inpatient Medications Acetaminophen (Tylenol) 650 mg Q4H PRN PO PAIN 1-10 AND/OR FEVER >101F; Start 05/21/16 at 21:45 Albuterol Sulfate (Albuterol Neb) 2.5 mg Q4HR NEB INH Last administered on 03:44; Start 05/23/16 at 12:00 Albuterol/ Ipratropium (Duoneb Neb) 1 ampule Q4HR WHILE AWAKE NEB INH Last administered on 05/26/16 09:54; Start 05/23/16 at 16:00 Amiodarone HCl (Cordarone) 200 mg DAILY PO Last administered on 05/26/16 09:09 ; Start 05/24/16 at 09:00 Amiodarone HCl 150 mg/Dextrose 100 ml @ 600 mls/hr ONCE ONCE IV Last administered on 05/21/16 18:00; Start 05/21/16 at 16:00; Stop 05/21/16 at 16:09 ; Status DC Amiodarone HCl/ Dextrose (Cordarone Inj/ D5W ([place]) Inj) 250 ml @ 0 mls/hr CONTINUOUS IV Last administered on 05/22/16 18:33; Start 05/21/16 at 16:00; Stop 05/23/16 at 08:43; Status DC Amiodarone HCl/ Dextrose (Cordarone Inj/ D5W 100 ml Inj) 100 ml @ 600 mls/hr ONCE ONCE IV Last administered on 05/22/16 09:11; Start 05/22/16 at 08:30; Stop 05/22/16 at 08:39; Status DC Apixaban 5 mg 5 mg BID PO Last administered on 05/26/16 09:09; Start 05/21/16 at 21:00 Aspirin (Aspirin Chew) 162 mg ONCE ONCE PO Last administered on 05/21/16 11: 37; Start 05/21/16 at 11:30; Stop 05/21/16 at 11:31; Status DC Aspirin (Ecotrin Ec) 162 mg DAILY PO ; Start 05/22/16 at 09:00; Stop 05/22/16 at 09:00; Status DC Azithromycin (Zithromax) 250 mg DAILY PO Last administered on 05/26/16 09:09; Start 05/22/16 at 17:00 Budesonide/ Formoterol Fumarate (Symbicort 160-4.5 Inh) 2 puff Q12HR INH Last administered on 05/26/16 09:18; Start 05/22/16 at 09:00 Buspirone HCl (Buspar) 5 mg TID PO Last administered on 05/26/16 09:09; Start 05/22/16 at 09:00 Ceftriaxone Sodium/Sodium Chloride (Rocephin Inj/NS Inj) 100 ml @ 200 mls/hr Q24H IV Last administered on 05/25/16 16:31; Start 05/22/16 at 15:00 Dextromethorphan (Robitussin La Pediatric Cough Liq) 7.5 mg Q6H PRN PO cough ; Start 05/24/16 at 14:45 Digoxin (Lanoxin Inj) 0.5 mg NOW ONCE IV PUSH Last administered on 05/22/16 11:11; Start 05/22/16 at 11:00; Stop 05/22/16 at 11:01; Status DC Diltiazem HCl (Cardizem Cd) 360 mg DAILY PO Last administered on 05/26/16 09: 09; Start 05/23/16 at 09:00 Diltiazem HCl (Cardizem Inj) 25 mg ONCE ONCE IV Last administered on 11:36; Start 05/21/16 at 11:30; Stop 05/21/16 at 11:31; Status DC Diltiazem HCl 240 mg 240 mg DAILY PO Last administered on 05/22/16 09:29; Start 05/22/16 at 09:00; Stop 05/23/16 at 08:44; Status DC Diltiazem HCl/ Sodium Chloride (Cardizem Inj/NS Inj) 125 ml @ 0 mls/hr TITRATE IV Last administered on 05/21/16 12:32; Start 05/21/16 at 11:30; Stop at 08:24; Status DC Enalaprilat (Vasotec Inj) 1.25 mg Q8H PRN IV PUSH SBP>180, DBP>100; Start at 22:00 Enoxaparin Sodium (Lovenox Inj) 40 mg Q24H SQ Last administered on 05/21/16 15 :51; Start 05/21/16 at 15:00; Stop 05/21/16 at 16:02; Status DC Flumazenil (Romazicon Inj) 0.2 mg Q1M PRN IV PUSH SEE LABEL COMMENTS; Start at 14:15; Stop 05/25/16 at 08:31; Status DC Furosemide (Lasix Inj) 40 mg DAILY IV PUSH Last administered on 05/23/16 08:47 ; Start 05/23/16 at 09:00; Stop 05/23/16 at 09:02; Status DC Furosemide (Lasix) 40 mg BID@09,18 PO Last administered on 05/26/16 09:09; Start 05/23/16 at 18:00 Guaifenesin (Robitussin Liq) 200 mg QID PO Last administered on 05/26/16 09:10 ; Start 05/22/16 at 09:00 IV Flush (NS Flush) 2 ml UNSCH PRN IVF FLUSH AFTER USING IV ACCESS; Start 05/21 at 11:30; Stop 05/21/16 at 14:20; Status DC Lisinopril (Prinivil) 10 mg DAILY PO Last administered on 05/26/16 09:09; Start 05/22/16 at 09:00 Lorazepam (Ativan Inj) 0.5 mg ONCE ONCE IV PUSH Last administered on 01:24; Start 05/22/16 at 00:30; Stop 05/22/16 at 00:31; Status DC Lorazepam (Ativan) 2 mg Q2H PRN PO CIWA 11-14; Start 05/21/16 at 14:15; Stop at 08:31; Status DC Methylprednisolone Sodium Succinate (SoluMEDROL INJ) 40 mg BID IVP Last administered on 05/26/16 09:08; Start 05/25/16 at 21:00 Methylprednisolone Sodium Succinate 60 mg 60 mg Q6H IVP Last administered on 16:52; Start 05/22/16 at 15:00; Stop 05/24/16 at 19:15; Status DC Miscellaneous Information 1 HS TD Last administered on 05/25/16 20:37; Start 05/22/16 at 21:00 Naloxone HCl (Narcan Inj) 0.4 mg UNSCH PRN IV SEE LABEL COMMENTS; Start at 14:15 Nicotine (Habitrol 21 Mg Patch.24 Hr) 1 patch DAILY TD Last administered on 09:10; Start 05/22/16 at 09:00 Nitroglycerin (Nitroglycerin 2% Oint) 1 inch ONCE ONCE TOP Last administered on 05/21/16 12:32; Start 05/21/16 at 11:30; Stop 05/21/16 at 16:02; Status DC Ondansetron HCl (Zofran Inj) 4 mg Q6H PRN IVP NAUSEA OR VOMITING; Start at 14:15 Pantoprazole Sodium (Protonix) 40 mg DAILY PO Last administered on 05/26/16 09 :09; Start 05/22/16 at 09:00 Prednisone (Deltasone) 40 mg DAILY PO ; Start 05/22/16 at 09:00; Stop 05/22/16 at 09:00; Status DC Sodium Chloride (NS Flush) 2 ml BID IV FLUSH Last administered on 05/26/16 09: 18; Start 05/21/16 at 21:00 Thiamine HCl (Vitamin B1) 100 mg DAILY PO Last administered on 05/26/16 09:09 ; Start 05/22/16 at 09:00 Tiotropium [place] (Spiriva Inh) 18 mcg DAILY INH Last administered on 12:00; Start 05/22/16 at 09:00 (Cammy Bettencourt MD R1) Urinary Catheter: No (Cammy Bettencourt MD R1) Vascular Central Line Catheter: No (Cammy Bettencourt MD R1) A/P Assessment and Plan 71 year old male [facility] patient with history of atrial flutter admitted for symptomatic atrial flutter, COPD exacerbation, and chest pain work-up. Discharge Planning Pending clinical improvement, possibly 1-2 days. Of note, PT recommends rehab for this patient. Walk test ordered today. Patient is unsure whether he came from a SNF (possibly [facility]) or home. (Cammy Bettencourt MD R1) Attending Attestation Pt. examined and case discussed with resident physicians I have read the above note and agree with the assessment/plan as discussed with me I was involved in all medical decision making for this patient Taoc Alejandro MD (Taco Alejandro MD) Problem List: (1) COPD exacerbation Status: Acute Plan: Patient medically with shortness of breath and symptomatic atrial flutter. He continues to require regular breathing treatments and supplemental oxygen for symptomatic relief. He was started on Symbicort 05/23/16. Transferred to med-surg floor from [facility] on 05/24 Hospital Course: PMH significant for smoking and right lower lung resection. Pulmonology consulted, we appreciate their assistance in management - Advair HFA 115 at 2 puffs twice per day was added to regimen. On admission, WBC 10.4, neutrophil 89%, not clearly indicative of infection. Admission EKG showing afib as discussed elsewhere. BNP 749. Bicarb not elevated. Admission CXR showed chronic elevation of the right hemidiaphragm. We'll repeat during hospital stay. Re: possibility of PE, Wells score is 1.5. However, given no clinical improvement, D-dimer ordered and was WNL. Continue Supplemental O2 to maintain sats above 90%. Encourage pt. to get OOB and ambulate. PT and OT ordered Duonebs q4 hrs scheduled. Will alternate with Albuterol q4hr so that he is getting treatments every 2 hours. Note that these treatments may cause tachycardia Solu-Medrol 125 mg IV Solu-Medrol 60 mg IV every 6 hours 05/22-05/24, decreased to 40mg IV q6h on 05/24 Lasix 60 mg IV 1 given in ED. Lasix 40 mg PO twice a day, patient is getting adequate diuresis with this regimen Protonix 40 mg PO daily for GI protection and decrease chances of aspiration pneumonia. Azithromycin 500 mg PO 1, then 250 mg PO q24 hrs (x 5-7 days). Tylenol PRN. Added Rocephin 05/22, continue Mucinex 600 mg tab PO BID PRN congestion. Dextromethorphan PRN cough. Incentive spirometer. BiPap hs as ordered by Dr. Mohan PFTs ordered to be done inpatient DISPO: -Rehab placement recommended by PT -Discharge pending clinical improvement -Plan for pt to have a total of 5 day course of Azithro and Rocephin. Plan to also send pt. with COPD meds and a 2 week steroid taper to decrease the chances of another flare-up. -Home O2 walk test ordered as eval. for home O2 therapy prior to d/c. CM assisting. -Pt. will need f/u with PCP and with paper handler as an outpatient. (2) Congestive heart failure Status: Acute Plan: Possible exacerbation. Plan as above COPD exacerbation. BNP is notable to be 749 this admission, was 339 one month ago. Echocardiogram showing EF 5055% in April 2016, normal systolic function, normal wall thickness, normal wall motion without any regional wall motion abnormalities. Normal pulmonary artery pressure. He had 2+ edema of the lower extremities at admission, improving. Hospital course: -Elevate legs, SCDs -Trended troponin, EKG, CK - negative for signs of acute ischemic event. -Lasix as above -Continue medical management of CHF to include beta lynnette, statin, aspirin (3) Atrial flutter with rapid ventricular response Status: Acute Plan: Diagnosed April 2016. Discharge from the hospital on Cardizem 240 mg daily and Eliquis is 5 mg daily. Unclear whether the patient was taking these medications. In ED on admission, required multiple IV medications to control rate, which was originally in the 170s reported by [facility]. Rate is currently in the 80s-90s. Adenosine 2, Cardizem 2, digoxin 1 administered. Cardizem drip was initiated in the ED. -Cardiology consulted, placed patient on amiodarone and Cardizem drips initially , restarted Eliquis. Patient required additional boluses of Cardizem and digoxin on 05/21. -Currently rate controlled on PO amiodarone and PO Cardizem, dosing titrated by cardiology to amio 200mg daily and cardizem 360mg daily for discharge -No acute telemetry events (4) Hypertension Status: Chronic Plan: Chronic. BP has been 140s-160s SBP on admission, was notably 170/79 this morning Continue home dose lisinopril 10 mg daily Vasotec 0.125mg IV q8h PRN SBP >180, DBP >100 (5) Tobacco abuse Status: Acute Plan: Nicotine patch (6) Alcohol abuse Status: Chronic Plan: CIWA protocol, discontinued given no symptoms of withdrawal (7) Fluids/Electrolytes/Nutrition/Prophylaxis Status: Acute Plan: Fluids: Caution IVF given fluid overloaded Electrolytes: monitor and replete as needed Nutrition: heart-healthy diet DVT Prophylaxis:Eliquis/bilateral SCDs GI Prophylaxis: Protonix 40mg PO daily wdw Dr. Alejandro. (Cammy Bettencourt MD R1) Problem Qualifiers (1) Congestive heart failure: Qualified Code: I50.9 - Congestive heart failure, unspecified congestive heart failure chronicity, unspecified congestive heart failure type (2) Hypertension: Qualified Code: I10 - Essential hypertension Camym Bettencourt MD R1 May 26, 2016 12:19 Taco Alejandro MD May 26, 2016 17:23
[2016-05-26] MEDS: cefTRIAXone INJ 1,000 MG in SODIUM CHLORIDE 0.9% INJ 100 ML IV SCH (16:00)
--- NOTE | 2016-05-26 17:55 | HHI.PR ---
Subjective Remarks Alert .C/O SOB and and cough. On O2 4l. has wheezing. Objective Vital Signs Date Time Temp Pulse Resp B/P Pulse Ox O2 Delivery O2 Flow Rate FiO2 05/26/16 16:00 97.9 88 18 134/72 95 05/26/16 15:52 98 Nasal Cannula 2.00 05/26/16 12:00 98.0 90 23 149/75 96 05/26/16 09:54 97 Nasal Cannula 3.00 05/26/16 08:00 98.3 92 20 170/79 97 05/26/16 06:00 78 20 142/68 96 05/26/16 00:00 80 20 113/56 100 05/25/16 20:44 95 30 05/25/16 20:00 Nasal Cannula 3.50 05/25/16 20:00 83 05/25/16 20:00 97.5 82 18 131/71 97 I/O 05/25/16 05/25/16 05/25/16 05/26/16 05/26/16 05/26/16 07:00 15:00 23:00 07:00 15:00 23:00 Intake Total 440 ml 100 ml 480 ml Output Total 425 ml 350 ml 600 ml Balance 15 ml -250 ml -120 ml Intake Oral 440 ml 480 ml IV Total 100 ml Output Urine Total 425 ml 350 ml 600 ml Stool Total 0 ml # Bowel Movements 0 Result Diagram: 05/26/16 0552 05/26/16 0552 Objective Remarks GENERAL: This is a well-built elderly white male in no acute distress. No pallor, icterus, cyanosis or lymphadenopathy. HEENT: Head is normocephalic. Pupils are reactive. Tongue is moist. Throat is clear. Nasal mucosa is clear. NECK: There is no venous distension. No thyromegaly. CHEST: Decreased breath sounds at the bases with expiratory wheezes . HEART: The heart sounds are irregularly irregular, S1 and S2, with no murmur and no S3. ABDOMEN: Soft, protuberant without masses. No organomegaly or tenderness. The bowel sounds are active. EXTREMITIES: Edema 1+. Decreased pulses. Reflexes are1+with no gross motor deficits. NEUROLOGIC: Cranial nerves are grossly intact. SKIN: No lesions. Assessment and Plan Assessment and Plan IMPRESSION 1. COPD with acute exacerbation. 2. CHF and ASHD. 3. Hyperlipidemia. 4. 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 Plan : 1. Cont antibiotics. and switch to PO 2. O2 at 3 L. Arrange home O2 3. Nebs qid , duoneb. 4. prednisone 30 mg daily. 5. Needs PET CT as OP for lung nodules. 6. IS at bedside q2h. 7. D/c BiPAP 8. Needs Sleep study as OP Erwin Willson MD May 26, 2016 17:55
[2016-05-26] MEDS: predniSONE 20 MG TAB PO SCH (18:09)
[2016-05-26] MEDS: REMOVE OLD NICODERM (NICOTINE) PATCH TD SCH (21:00)
[2016-05-26] MEDS: CEFUROXIME AXETIL 500 MG TAB PO SCH (22:03)
[2016-05-27] VITALS (11 sets, daily range): BP systolic 103–142; BP diastolic 58–78; PULSE 82–88; RESP 18–20; TEMP 97.3–98.7; O2SAT 95–100
[2016-05-27] MEDS: RESP: ALBUTEROL 2.5 MG/3 ML NEB (SCH) INH ×3 (01:55→08:26)
[2016-05-27] MEDS: RESP: ALBUTEROL 2.5 MG/IPRATROPIUM 0.5 MG NEB (SCH) INH ×4 (05:12→20:48)
[2016-05-27 07:20] LABS: AUTOMATED NEUTROPHIL # 7.8 TH/MM3 (1.8-7.7); BASOPHIL % 0.2 % (0.0-2.0); HEMATOCRIT 36.4 % (39.0-51.0); LYMPH % 3.5 % (9.0-44.0); LYMPHOCYTE # 0.3 TH/MM3 (1.0-4.8); MEAN CELL VOLUME 93.4 FL (80.0-100.0); MEAN CORPUSCULAR HGB CONC 33.1 % (32.0-36.0); MONO % 9.2 % (0.0-8.0); NEUT % 87.1 % (16.0-70.0); PLATELET COUNT 233 TH/MM3 (150-450); RED BLOOD COUNT 3.89 MIL/MM3 (4.50-5.90); RED CELL DISTRIBUTION WIDTH 15.1 % (11.6-17.2)
[2016-05-27 07:32] LABS: BICARBONATE 34.8 MEQ/L (21.0-32.0); POTASSIUM 4.2 MEQ/L (3.5-5.1)
[2016-05-27 07:43] LABS: HEMO FLAGS AUTO DIFF
[2016-05-27 08:23] LABS: BANDS 2 % (0-6); METAMYELOCYTES 1 % (0-1); NEUTROPHIL # MANUAL DIFF 8.1 TH/MM3 (1.8-7.7); PLATELET ESTIMATE SMEAR NORMAL (NORMAL); PLATELET MORPHOLOGY NORMAL (NORMAL); POLYS (SEG NEUTROPHILS) 87 % (16-70); SCAN/DIFF FINAL DIFF MANUAL; WBC DIFF SAMPLE 100
[2016-05-27] MEDS: BUDESONIDE-FORMOTEROL 160/4.5 MCG INHALER INH SCH ×2 (09:00→21:00)
[2016-05-27] MEDS: TIOTROPIUM BROMIDE 18 MCG INH INH SCH (09:24)
[2016-05-27] MEDS: SODIUM CHLORIDE 0.9% FLUSH 10 ML FLUSH IV FLUSH SCH ×2 (09:25→21:00)
[2016-05-27] MEDS: predniSONE 20 MG TAB PO SCH (09:26)
[2016-05-27] MEDS: AZITHROMYCIN 250 MG TAB PO SCH (09:26)
[2016-05-27] MEDS: LISINOPRIL 10 MG TAB PO SCH (09:26)
[2016-05-27] MEDS: CEFUROXIME AXETIL 500 MG TAB PO SCH ×2 (09:26→21:41)
[2016-05-27] MEDS: busPIRone HCL 5 MG TAB PO SCH ×3 (09:26→21:41)
[2016-05-27] MEDS: FUROSEMIDE 40 MG TAB PO SCH (09:26)
[2016-05-27] MEDS: guaiFENesin SOLUTION 200 MG/10 ML CUP PO SCH ×3 (09:27→21:40)
[2016-05-27] MEDS: PANTOPRAZOLE SOD 40 MG DELAYED RELEASE TAB PO SCH (09:27)
[2016-05-27] MEDS: DILTIAZEM-CD 180 MG CAP ER PO SCH (09:27)
[2016-05-27] MEDS: AMIODARONE 200 MG TAB PO SCH (09:27)
[2016-05-27] MEDS: NICOTINE 21 MG/24 HR PATCH TD SCH (09:28)
[2016-05-27] MEDS: THIAMINE HCL 100 MG TAB PO SCH (09:31)
[2016-05-27] MEDS: APIXABAN 5 MG TABLET PO SCH ×2 (09:32→21:41)
--- NOTE | 2016-05-27 10:15 | HHI.FPPN ---
Subjective Remarks Patient was seen and examined this morning. He feels a little better, states he is getting around the room with a little less shortness of breath. No chest pain , nausea, vomiting, diarrhea, constipation. Craving candy. Aware that PT recommends rehab, notes he used to be at [facility] in the past. (Cammy Bettencourt MD R1) Objective Vitals Vital Signs Date Time Temp Pulse Resp B/P Pulse Ox O2 Delivery O2 Flow Rate FiO2 05/27/16 09:05 Nasal Cannula 2.00 05/27/16 08:37 98.7 88 19 142/78 97 05/27/16 08:27 97 Nasal Cannula 2.00 05/27/16 04:00 97.4 85 20 125/73 95 05/27/16 01:49 95 05/27/16 00:00 97.8 82 18 103/58 100 05/26/16 22:19 Nasal Cannula 2.00 05/26/16 22:17 94 30 05/26/16 20:00 98.7 86 18 131/80 95 05/26/16 20:00 87 05/26/16 16:00 Nasal Cannula 2.00 05/26/16 16:00 97.9 88 18 134/72 95 05/26/16 15:52 98 Nasal Cannula 2.00 05/26/16 13:00 Nasal Cannula 2.00 05/26/16 12:00 Nasal Cannula 2.50 05/26/16 12:00 98.0 90 23 149/75 96 I/O 05/26/16 05/26/16 05/26/16 05/27/16 05/27/16 05/27/16 07:00 15:00 23:00 07:00 15:00 23:00 Intake Total 480 ml 242 ml 480 ml Output Total 600 ml 600 ml 500 ml Balance -120 ml -358 ml -20 ml Intake Oral 480 ml 240 ml 480 ml IV Total 2 ml Output Urine Total 600 ml 600 ml 500 ml # Bowel Movements 0 0 (Cammy Bettencourt MD R1) Result Diagram: 05/27/1662405/27/16624 Objective Remarks GENERAL: Well developed, well-nourished elderly male. on 2L NC breathing comfortably EYES: PERRLA. EOMI. Lids and conjunctivae reveal no gross abnormality. No scleral icterus. ENT: Hearing adequate. Head NCAT. MMM. OP/OC clear. No cervical or supraclavicular LAD. NECK: No JVD. No carotid bruits. Neck supple, no masses. Trachea midline. No thyromegaly. RESPIRATORY: No evidence of pulmonary edema. Respiratory rate approximately 18. No wheezes, air movement moderate CARDIOVASCULAR: Telemetry reviewed; HR approx 90 with regular rhythm. Radial and DP pulses 2+ and symmetric bilaterally. Brisk capillary refill. ABDOMEN: Bowel sounds present in all quadrants. Nontender. No masses or pulsations present. EXTREMITIES: Lower extremities notable for 2+ edema to the midshin, right slightly worse than left, unchanged. No clubbing, cyanosis, or erythema. MUSCULOSKELETAL: No obvious bony deformities or joint pain. Strength 5/5 in upper and lower extremities. No calf tenderness. SKIN: No evidence of cellulitis, ecchymoses. Adequate skin turgor. NEUROLOGICAL: Awake and alert. No obvious cranial nerve deficits. Motor grossly within normal limits. Grossly normal muscle strength. Normal speech. PSYCHIATRIC: Appropriate mood and affect; insight and judgment normal. Medications and IVs Inpatient Medications Acetaminophen (Tylenol) 650 mg Q4H PRN PO PAIN 1-10 AND/OR FEVER >101F Last administered on 05/26/16 22:20; Start 05/21/16 at 21:45 Albuterol Sulfate (Albuterol Neb) 2.5 mg Q4HR NEB INH Last administered on 08:26; Start 05/23/16 at 12:00 Albuterol/ Ipratropium (Duoneb Neb) 1 ampule Q4HR WHILE AWAKE NEB INH Last administered on 05/27/16 05:12; Start 05/23/16 at 16:00 Amiodarone HCl (Cordarone) 200 mg DAILY PO Last administered on 05/27/16 09:27 ; Start 05/24/16 at 09:00 Amiodarone HCl 150 mg/Dextrose 100 ml @ 600 mls/hr ONCE ONCE IV Last administered on 05/21/16 18:00; Start 05/21/16 at 16:00; Stop 05/21/16 at 16:09 ; Status DC Amiodarone HCl/ Dextrose (Cordarone Inj/ D5W ([place]) Inj) 250 ml @ 0 mls/hr CONTINUOUS IV Last administered on 05/22/16 18:33; Start 05/21/16 at 16:00; Stop 05/23/16 at 08:43; Status DC Amiodarone HCl/ Dextrose (Cordarone Inj/ D5W 100 ml Inj) 100 ml @ 600 mls/hr ONCE ONCE IV Last administered on 05/22/16 09:11; Start 05/22/16 at 08:30; Stop 05/22/16 at 08:39; Status DC Apixaban 5 mg 5 mg BID PO Last administered on 05/27/16 09:32; Start 05/21/16 at 21:00 Aspirin (Aspirin Chew) 162 mg ONCE ONCE PO Last administered on 05/21/16 11: 37; Start 05/21/16 at 11:30; Stop 05/21/16 at 11:31; Status DC Aspirin (Ecotrin Ec) 162 mg DAILY PO ; Start 05/22/16 at 09:00; Stop 05/22/16 at 09:00; Status DC Azithromycin (Zithromax) 250 mg DAILY PO Last administered on 05/27/16 09:26; Start 05/22/16 at 17:00 Budesonide/ Formoterol Fumarate (Symbicort 160-4.5 Inh) 2 puff Q12HR INH Last administered on 05/26/16 21:00; Start 05/22/16 at 09:00 Buspirone HCl (Buspar) 5 mg TID PO Last administered on 05/27/16 09:26; Start 05/22/16 at 09:00 Ceftriaxone Sodium/Sodium Chloride (Rocephin Inj/NS Inj) 100 ml @ 200 mls/hr Q24H IV Last administered on 05/26/16 16:00; Start 05/22/16 at 15:00; Stop at 17:57; Status DC Cefuroxime Axetil (Ceftin) 500 mg Q12HR PO Last administered on 05/27/16 09:26 ; Start 05/26/16 at 21:00 Dextromethorphan (Robitussin La Pediatric Cough Liq) 7.5 mg Q6H PRN PO cough ; Start 05/24/16 at 14:45 Digoxin (Lanoxin Inj) 0.5 mg NOW ONCE IV PUSH Last administered on 05/22/16 11:11; Start 05/22/16 at 11:00; Stop 05/22/16 at 11:01; Status DC Diltiazem HCl (Cardizem Cd) 360 mg DAILY PO Last administered on 05/27/16 09: 27; Start 05/23/16 at 09:00 Diltiazem HCl (Cardizem Inj) 25 mg ONCE ONCE IV Last administered on 11:36; Start 05/21/16 at 11:30; Stop 05/21/16 at 11:31; Status DC Diltiazem HCl 240 mg 240 mg DAILY PO Last administered on 05/22/16 09:29; Start 05/22/16 at 09:00; Stop 05/23/16 at 08:44; Status DC Diltiazem HCl/ Sodium Chloride (Cardizem Inj/NS Inj) 125 ml @ 0 mls/hr TITRATE IV Last administered on 05/21/16 12:32; Start 05/21/16 at 11:30; Stop at 08:24; Status DC Enalaprilat (Vasotec Inj) 1.25 mg Q8H PRN IV PUSH SBP>180, DBP>100; Start at 22:00 Enoxaparin Sodium (Lovenox Inj) 40 mg Q24H SQ Last administered on 05/21/16 15 :51; Start 05/21/16 at 15:00; Stop 05/21/16 at 16:02; Status DC Flumazenil (Romazicon Inj) 0.2 mg Q1M PRN IV PUSH SEE LABEL COMMENTS; Start at 14:15; Stop 05/25/16 at 08:31; Status DC Furosemide (Lasix Inj) 40 mg DAILY IV PUSH Last administered on 05/23/16 08:47 ; Start 05/23/16 at 09:00; Stop 05/23/16 at 09:02; Status DC Furosemide (Lasix) 40 mg BID@09,18 PO Last administered on 05/27/16 09:26; Start 05/23/16 at 18:00 Guaifenesin (Robitussin Liq) 200 mg QID PO Last administered on 05/27/16 09:27 ; Start 05/22/16 at 09:00 IV Flush (NS Flush) 2 ml UNSCH PRN IVF FLUSH AFTER USING IV ACCESS; Start 05/21 at 11:30; Stop 05/21/16 at 14:20; Status DC Lisinopril (Prinivil) 10 mg DAILY PO Last administered on 05/27/16 09:26; Start 05/22/16 at 09:00 Lorazepam (Ativan Inj) 0.5 mg ONCE ONCE IV PUSH Last administered on 01:24; Start 05/22/16 at 00:30; Stop 05/22/16 at 00:31; Status DC Lorazepam (Ativan) 2 mg Q2H PRN PO CIWA 11-14; Start 05/21/16 at 14:15; Stop at 08:31; Status DC Methylprednisolone Sodium Succinate (SoluMEDROL INJ) 40 mg BID IVP Last administered on 05/26/16 09:08; Start 05/25/16 at 21:00; Stop 05/26/16 at 14:49 ; Status DC Methylprednisolone Sodium Succinate 60 mg 60 mg Q6H IVP Last administered on 16:52; Start 05/22/16 at 15:00; Stop 05/24/16 at 19:15; Status DC Miscellaneous Information 1 HS TD Last administered on 05/26/16 21:00; Start 05/22/16 at 21:00 Naloxone HCl (Narcan Inj) 0.4 mg UNSCH PRN IV SEE LABEL COMMENTS; Start at 14:15 Nicotine (Habitrol 21 Mg Patch.24 Hr) 1 patch DAILY TD Last administered on 09:28; Start 05/22/16 at 09:00 Nitroglycerin (Nitroglycerin 2% Oint) 1 inch ONCE ONCE TOP Last administered on 05/21/16 12:32; Start 05/21/16 at 11:30; Stop 05/21/16 at 16:02; Status DC Ondansetron HCl (Zofran Inj) 4 mg Q6H PRN IVP NAUSEA OR VOMITING; Start at 14:15 Pantoprazole Sodium (Protonix) 40 mg DAILY PO Last administered on 05/27/16 09 :27; Start 05/22/16 at 09:00 Prednisone (Deltasone) 40 mg DAILY PO Last administered on 05/27/16 09:26; Start 05/26/16 at 19:00 Sodium Chloride (NS Flush) 2 ml BID IV FLUSH Last administered on 05/27/16 09: 25; Start 05/21/16 at 21:00 Thiamine HCl (Vitamin B1) 100 mg DAILY PO Last administered on 05/27/16 09:31 ; Start 05/22/16 at 09:00 Tiotropium [place] (Spiriva Inh) 18 mcg DAILY INH Last administered on 09:24; Start 05/22/16 at 09:00 (Cammy Bettencourt MD R1) Urinary Catheter: No (Cammy Bettencourt MD R1) Vascular Central Line Catheter: No (Cammy Bettencourt MD R1) A/P Assessment and Plan 71 year old male [facility] patient with history of atrial flutter admitted for symptomatic atrial flutter, COPD exacerbation, and chest pain work-up. Discharge Planning Pending clinical improvement, possibly 1-2 days. Of note, PT recommends rehab for this patient. Walk test ordered 05/27, pending. Patient will likely discharge to [facility] as he has been there in the past (Cammy Bettencourt MD R1) Attending Attestation Pt. examined and case discussed with resident physicians I have read the above note and agree with the assessment/plan as discussed with me I was involved in all medical decision making for this patient Taco Alejandro MD (Taco Alejandro MD) Problem List: (1) COPD exacerbation Status: Acute Plan: Plan: Home walk test for supplemental O2. Decrease Duonebs to q6h, make albuterol PRN. Lasix 40mg BID decreased to Lasix 40mg daily. Continue antibiotics with stop date 05/28 (7 day course). Hospital Course: Patient presented with shortness of breath and symptomatic atrial flutter. PMH significant for smoking and right lower lung resection. Pulmonology consulted, we appreciate their assistance in management - Advair HFA 115 at 2 puffs twice per day was added to regimen. On admission, WBC 10.4, neutrophil 89%, not clearly indicative of infection. Improved and wnl. Admission EKG showing afib as discussed elsewhere. BNP 749. Bicarb not elevated. Admission CXR showed chronic elevation of the right hemidiaphragm. Repeat on and 05/26 showed stable and no acute disease Re: possibility of PE, Wells score is 1.5. However, given no clinical improvement, D-dimer ordered and was WNL He required supplemental oxygen due to respiratory distress and increased work of breathing and was started on Bipap hs. Duonebs q4 hrs scheduled and alternated with albuterol. Continue Supplemental O2 to maintain sats above 90%. Encourage pt. to get OOB and ambulate. PT and OT ordered Lasix titrated from IV to PO Solu-Medrol 125 mg IV Solu-Medrol 60 mg IV every 6 hours 05/22-05/24, decreased to 40mg IV q6h on 05/24, now by mouth prednisone Azithromycin 500 mg PO 1, then 250 mg PO q24 hrs (x 5 days). Discontinue 05/28 Added Rocephin IV 05/22, continued 05/22-05/26 Cefuroxime PO started 05/26, will d/c 05/28 Continue Spiriva, Symbicort Rehab placement recommended by PT but patient not approved for SNF through insurance Home health PT ordered Plan for pt to have a total of 5 day course of Azithro and Rocephin. Plan to also send pt. with COPD meds and a 2 week steroid taper to decrease the chances of another flare-up. Home O2 walk test ordered as eval. for home O2 therapy prior to d/c. CM assisting. Pt. will need f/u with PCP and with manager editorial as an outpatient. Needs follow-up on CT findings of pulmonary nodules as outpatient Lasix 60 mg IV 1 given in ED. Now on PO as above Protonix 40 mg PO daily for GI protection and decrease chances of aspiration pneumonia. Mucinex 600 mg tab PO BID PRN congestion. Dextromethorphan PRN cough. Incentive spirometer, patient has not been using, counseled BiPap hs discontinued PFTs to be ordered as outpatient (2) Congestive heart failure Status: Acute Plan: Possible comorbid condition at admission given new afib and BNP elevation. Plan as above COPD exacerbation. BNP is notable to be 749 this admission, was 339 one month ago. Echocardiogram showing EF 5055% in April 2016, normal systolic function, normal wall thickness, normal wall motion without any regional wall motion abnormalities. Normal pulmonary artery pressure. He had 2+ edema of the lower extremities at admission, improving. Hospital course: -Elevate legs, SCDs -Trended troponin, EKG, CK - negative for signs of acute ischemic event. -Lasix as above -Continue medical management of CHF to include beta lynnette, statin, aspirin (3) Atrial flutter with rapid ventricular response Status: Acute Plan: Diagnosed April 2016. Discharge from the hospital at that time on Cardizem 240 mg daily and Eliquis is 5 mg daily. In ED on admission, required multiple IV medications (Adenosine 2, Cardizem 2 , digoxin 1 administered to control rate, which was originally in the 170s. Rate is currently in the 80s-90s. Cardizem drip was initiated in the ED, discontinued on day 3 of stay Cardiology consulted, placed patient on amiodarone and Cardizem drips initially , restarted Eliquis. Currently rate controlled on PO amiodarone and PO Cardizem, dosing titrated by cardiology to Amio 200mg daily and Cardizem 360mg daily for discharge No clinically significant telemetry events (4) Hypertension Status: Chronic Plan: Chronic. BP has been 100-170s SBP over last 24 hr Continue home dose lisinopril 10 mg daily Vasotec 0.125mg IV q8h PRN SBP >180, DBP >100 (5) Tobacco abuse Status: Acute Plan: Nicotine patch high dose (6) Alcohol abuse Status: Chronic Plan: CIWA protocol, discontinued given no symptoms of withdrawal (7) Fluids/Electrolytes/Nutrition/Prophylaxis Status: Acute Plan: Fluids: Caution IVF given fluid overloaded Electrolytes: monitor and replete as needed Nutrition: heart-healthy diet DVT Prophylaxis: Eliquis/bilateral SCDs GI Prophylaxis: Protonix 40mg PO daily wdw Dr. Alejandro. (Cammy Bettencourt MD R1) Problem Qualifiers (1) Congestive heart failure: Qualified Code: I50.9 - Congestive heart failure, unspecified congestive heart failure chronicity, unspecified congestive heart failure type (2) Hypertension: Qualified Code: I10 - Essential hypertension Cammy Bettencourt MD R1 May 27, 2016 10:15 Taco Alejandro MD May 27, 2016 19:02
[2016-05-27] MEDS ORDERED: RESP: ALBUTEROL 2.5 MG/3 ML NEB (PRN) INH (11:45)
--- NOTE | 2016-05-27 12:21 | HHI.FF ---
Face to Face Verification Diagnosis: (1) COPD with exacerbation (2) Paroxysmal atrial flutter (3) Hypertension Physical Therapy Order: Evaluate and Treat, Improve ambulation, Strength and gait training Occupational Therapy Order: Evaluate and Treat, Improve ADL Home Health Nursing Order: Medical education Signs/symptoms of disease process Oxygen administration education Medication education-adverse effect Nursing assessment with vital signs Production Supervisor Trainee Order: To Evaluate: Support services I have seen patient Scottie Elliott on 05/27/16. My clinical findings support the need for the requested home health care services because: Ltd mobility - disease progression Patient has SOB Deconditioned w/ increased weakness Med compliance is questionable Limited ability to care for self Need for psychosocial assistance High risk of falls I certify that my clinical findings support that this patient is homebound because: Impaired cognitive ability/safety Hx COPD- exertion dyspnea/weakness Unsteady gait/balance Unsafe to leave home unassisted Poor cardiac reserve Cammy Bettencourt MD R1 May 27, 2016 12:21
[2016-05-27] MEDS ORDERED: OXYGENTANK NAS.CANULA ×2 (13:05→15:51)
[2016-05-27] MEDS ORDERED: NICO21DI2 T-DERMAL (15:50)
[2016-05-27] MEDS ORDERED: ASPI81TA2 PO (15:50)
[2016-05-27] MEDS ORDERED: GUAI100S7 PO (15:50)
[2016-05-27] MEDS ORDERED: LISI10TA3 PO (15:50)
[2016-05-27] MEDS ORDERED: THIA100T PO (15:50)
[2016-05-27] MEDS ORDERED: FOLI1TAB4 PO (15:50)
[2016-05-27] MEDS ORDERED: SPIRCAP INH (15:50)
[2016-05-27] MEDS ORDERED: MULT-142 PO (15:50)
[2016-05-27] MEDS ORDERED: BUSP5TAB PO (15:51)
[2016-05-27] MEDS ORDERED: APIX5TAB PO (15:51)
[2016-05-27] MEDS ORDERED: CARD180C5 PO (15:51)
[2016-05-27] MEDS ORDERED: CEFU1TAB20 PO (15:51)
[2016-05-27] MEDS ORDERED: AMIO200T PO (15:51)
[2016-05-27] MEDS ORDERED: PRED20 PO (15:51)
[2016-05-27] MEDS ORDERED: ALBU0.08 INH (15:51)
[2016-05-27] MEDS ORDERED: NEBUKIT5 (15:51)
[2016-05-27] MEDS ORDERED: NEBULIZER1 MI1 (15:51)
[2016-05-27] MEDS ORDERED: IPRASOL INH (15:51)
[2016-05-27] MEDS ORDERED: ZITH250T PO (15:51)
[2016-05-27] MEDS ORDERED: FURO40TA PO (15:51)
[2016-05-27] MEDS ORDERED: SYMB160A INH (15:51)
[2016-05-27] MEDS ORDERED: PANT40TA3 PO (15:51)
--- NOTE | 2016-05-27 18:46 | PD.PN.STU ---
Subjective Remarks Feeling improved, on N/C O2 3L, no wheezes. Objective Vitals Vital Signs Date Time Temp Pulse Resp B/P Pulse Ox O2 Delivery O2 Flow Rate FiO2 05/27/16 16:18 98.0 87 20 127/75 97 05/27/16 13:42 87 05/27/16 12:17 98.0 88 19 136/69 98 05/27/16 09:05 Nasal Cannula 2.00 05/27/16 08:37 98.7 88 19 142/78 97 05/27/16 08:27 97 Nasal Cannula 2.00 05/27/16 04:00 97.4 85 20 125/73 95 05/27/16 01:49 95 05/27/16 00:00 97.8 82 18 103/58 100 05/26/16 22:19 Nasal Cannula 2.00 05/26/16 22:17 94 30 05/26/16 20:00 98.7 86 18 131/80 95 05/26/16 20:00 87 I/O 05/26/16 05/26/16 05/26/16 05/27/16 05/27/16 05/27/16 07:00 15:00 23:00 07:00 15:00 23:00 Intake Total 480 ml 242 ml 480 ml 480 ml Output Total 600 ml 600 ml 500 ml 500 ml Balance -120 ml -358 ml -20 ml -20 ml Intake Oral 480 ml 240 ml 480 ml 480 ml IV Total 2 ml Output Urine Total 600 ml 600 ml 500 ml 500 ml # Bowel Movements 0 0 0 Result Diagram: 05/27/1625 05/27/16624 Objective Remarks GENERAL: This is a well-built elderly white male in no acute distress. No pallor, icterus, cyanosis or lymphadenopathy. HEENT: Head is normocephalic. Pupils are reactive. Tongue is moist. Throat is clear. Nasal mucosa is clear. NECK: There is no venous distension. No thyromegaly. CHEST: Decreased breath sounds at the bases, no wheezing. HEART: The heart sounds are irregularly irregular, S1 and S2, with no murmur and no S3. ABDOMEN: Soft, protuberant without masses. No organomegaly or tenderness. The bowel sounds are active. EXTREMITIES: Edema 1+. Decreased pulses. Reflexes are1+with no gross motor deficits. NEUROLOGIC: Cranial nerves are grossly intact. SKIN: No lesions. A/P Assessment and Plan IMPRESSION 1. COPD with acute exacerbation. 2. CHF and ASHD. 3. Hyperlipidemia. 4. 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 Plan : 1. Cont PO antibiotics as OP 2. O2 at 3 L. Arrange home O2 3. Nebs qid , duoneb. 4. Continue prednisone 40 mg daily and taper. 5. Needs PET CT as OP for lung nodules. 6. Needs home O2 as OP 7. Needs Sleep study as OP 8. Can be D/C to rehab in am. Lore Schmidt M3 May 27, 2016 18:45
[2016-05-27] MEDS ORDERED: predniSONE 20 MG TAB PO SCH (19:00)
--- NOTE | 2016-05-27 19:26 | HHI.PR ---
Subjective Remarks Alert Feels better. Now on PO meds. On O2 2 l.No wheezing. Objective Vital Signs Date Time Temp Pulse Resp B/P Pulse Ox O2 Delivery O2 Flow Rate FiO2 05/27/16 16:18 98.0 87 20 127/75 97 05/27/16 13:42 87 05/27/16 12:17 98.0 88 19 136/69 98 05/27/16 09:05 Nasal Cannula 2.00 05/27/16 08:37 98.7 88 19 142/78 97 05/27/16 08:27 97 Nasal Cannula 2.00 05/27/16 04:00 97.4 85 20 125/73 95 05/27/16 01:49 95 05/27/16 00:00 97.8 82 18 103/58 100 05/26/16 22:19 Nasal Cannula 2.00 05/26/16 22:17 94 30 05/26/16 20:00 98.7 86 18 131/80 95 05/26/16 20:00 87 I/O 05/26/16 05/26/16 05/26/16 05/27/16 05/27/16 05/27/16 07:00 15:00 23:00 07:00 15:00 23:00 Intake Total 480 ml 242 ml 480 ml 480 ml Output Total 600 ml 600 ml 500 ml 500 ml Balance -120 ml -358 ml -20 ml -20 ml Intake Oral 480 ml 240 ml 480 ml 480 ml IV Total 2 ml Output Urine Total 600 ml 600 ml 500 ml 500 ml # Bowel Movements 0 0 0 Result Diagram: 05/27/1625 05/27/16624 Objective Remarks GENERAL: This is a well-built elderly white male in no acute distress. No pallor, icterus, cyanosis or lymphadenopathy. HEENT: Head is normocephalic. Pupils are reactive. Tongue is moist. Throat is clear. Nasal mucosa is clear. NECK: There is no venous distension. No thyromegaly. CHEST: Decreased breath sounds at the bases with occ wheezes . HEART: The heart sounds are irregularly irregular, S1 and S2, with no murmur and no S3. ABDOMEN: Soft, protuberant without masses. No organomegaly or tenderness. The bowel sounds are active. EXTREMITIES: Edema 1+. Decreased pulses. Reflexes are 1+ with no gross motor deficits. NEUROLOGIC: Cranial nerves are grossly intact. SKIN: No lesions. Assessment and Plan Assessment and Plan IMPRESSION 1. COPD with acute exacerbation. 2. CHF and ASHD. 3. Hyperlipidemia. 4. 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 Plan : 1. Cont antibiotics. and switch to PO 2. O2 at 3 L. Arrange home O2 3. Nebs qid , duoneb. 4. prednisone 40 mg daily and taper . 5. Needs PET CT as OP for lung nodules. 6. IS at bedside q2h. 7. OK to go to rehab . 8. Needs Sleep study as OP. Will F/U in 3 weeks Erwin Willson MD May 27, 2016 19:26
[2016-05-27] MEDS: REMOVE OLD NICODERM (NICOTINE) PATCH TD SCH (21:00)
[2016-05-28] VITALS (11 sets, daily range): BP systolic 97–151; BP diastolic 58–87; PULSE 81–180; RESP 18–21; TEMP 97.3–98.6; O2SAT 94–100
[2016-05-28] MEDS: RESP: ALBUTEROL 2.5 MG/IPRATROPIUM 0.5 MG NEB (SCH) INH ×2 (07:46→11:44)
[2016-05-28 07:50] LABS: AUTOMATED NEUTROPHIL # 7.1 TH/MM3 (1.8-7.7); BASOPHIL % 0.1 % (0.0-2.0); EOSINOPHIL % 0.2 % (0.0-4.0); HEMATOCRIT 37.6 % (39.0-51.0); LYMPH % 10.3 % (9.0-44.0); MEAN CELL VOLUME 94.4 FL (80.0-100.0); MEAN CORPUSCULAR HEMOGLOBIN 30.9 PG (27.0-34.0); MEAN CORPUSCULAR HGB CONC 32.7 % (32.0-36.0); MONO % 14.7 % (0.0-8.0); NEUT % 74.7 % (16.0-70.0); PLATELET COUNT 248 TH/MM3 (150-450); RED BLOOD COUNT 3.98 MIL/MM3 (4.50-5.90); WHITE BLOOD COUNT 9.6 TH/MM3 (4.0-11.0)
[2016-05-28 07:54] LABS: HEMO FLAGS AUTO DIFF
[2016-05-28 08:32] LABS: POTASSIUM 4.4 MEQ/L (3.5-5.1)
[2016-05-28] MEDS: TIOTROPIUM BROMIDE 18 MCG INH INH SCH (08:37)
[2016-05-28] MEDS: BUDESONIDE-FORMOTEROL 160/4.5 MCG INHALER INH SCH (08:37)
[2016-05-28] MEDS: CEFUROXIME AXETIL 500 MG TAB PO SCH (08:40)
[2016-05-28] MEDS: SODIUM CHLORIDE 0.9% FLUSH 10 ML FLUSH IV FLUSH SCH ×2 (08:40→08:49)
[2016-05-28] MEDS: DILTIAZEM-CD 180 MG CAP ER PO SCH (08:41)
[2016-05-28] MEDS: busPIRone HCL 5 MG TAB PO SCH ×2 (08:41→12:56)
[2016-05-28] MEDS: THIAMINE HCL 100 MG TAB PO SCH (08:41)
[2016-05-28] MEDS: PANTOPRAZOLE SOD 40 MG DELAYED RELEASE TAB PO SCH (08:41)
[2016-05-28] MEDS: AMIODARONE 200 MG TAB PO SCH (08:41)
[2016-05-28] MEDS: guaiFENesin SOLUTION 200 MG/10 ML CUP PO SCH ×2 (08:42→12:56)
[2016-05-28] MEDS: AZITHROMYCIN 250 MG TAB PO SCH (08:42)
[2016-05-28] MEDS: APIXABAN 5 MG TABLET PO SCH (08:42)
[2016-05-28] MEDS: LISINOPRIL 10 MG TAB PO SCH (08:42)
[2016-05-28] MEDS: predniSONE 20 MG TAB PO SCH (08:42)
[2016-05-28] MEDS: NICOTINE 21 MG/24 HR PATCH TD SCH (08:43)
[2016-05-28] MEDS ORDERED: FUROSEMIDE 40 MG TAB PO SCH (09:00)
[2016-05-28 09:02] LABS: BANDS 3 % (0-6); MYELOCYTES 3 % (0-0); NEUTROPHIL # MANUAL DIFF 7.1 TH/MM3 (1.8-7.7); PLATELET ESTIMATE SMEAR NORMAL (NORMAL); PLATELET MORPHOLOGY NORMAL (NORMAL); POLYS (SEG NEUTROPHILS) 68 % (16-70); SCAN/DIFF FINAL DIFF MANUAL; WBC DIFF SAMPLE 100
--- NOTE | 2016-05-28 11:15 | HHI.FPPN ---
Subjective Remarks Doing well on nc O2. Reports that his breathing is about 20% better since admission. AFVSS on exam. Denies CP, SHRESTHA, change in vision. (Osvaldo Silvestre MD R2) Objective Vitals Vital Signs Date Time Temp Pulse Resp B/P Pulse Ox O2 Delivery O2 Flow Rate FiO2 05/28/16 08:40 Nasal Cannula 2.00 05/28/16 08:05 98.3 84 19 151/87 95 05/28/16 07:46 97 Nasal Cannula 2.00 05/28/16 04:40 97.3 82 19 117/61 100 05/28/16 00:29 98.1 81 19 120/65 100 05/27/16 21:45 Nasal Cannula 2.00 05/27/16 20:50 99 Nasal Cannula 3.00 05/27/16 20:49 97.3 82 19 112/58 96 05/27/16 20:27 82 05/27/16 16:18 98.0 87 20 127/75 97 05/27/16 13:42 87 05/27/16 12:17 98.0 88 19 136/69 98 I/O 05/27/16 05/27/16 05/27/16 05/28/16 05/28/16 05/28/16 07:00 15:00 23:00 07:00 15:00 23:00 Intake Total 480 ml 480 ml Output Total 500 ml 500 ml 100 ml 150 ml Balance -20 ml -20 ml -100 ml -150 ml Intake Oral 480 ml 480 ml Output Urine Total 500 ml 500 ml 100 ml 150 ml # Bowel Movements 0 0 (Osvaldo Silvestre MD R2) Result Diagram: 05/28/1662905/28/1630 Objective Remarks GENERAL: Well developed, well-nourished elderly male. on 2L NC breathing comfortably EYES: PERRLA. EOMI. Lids and conjunctivae reveal no gross abnormality. No scleral icterus. ENT: Hearing adequate. Head NCAT. MMM. OP/OC clear. No cervical or supraclavicular LAD. NECK: No JVD. No carotid bruits. Neck supple, no masses. Trachea midline. No thyromegaly. RESPIRATORY: No evidence of pulmonary edema. Respiratory rate approximately 18. No wheezes, air movement moderate CARDIOVASCULAR: Telemetry reviewed; HR approx 90 with regular rhythm. Radial and DP pulses 2+ and symmetric bilaterally. Brisk capillary refill. ABDOMEN: Bowel sounds present in all quadrants. Nontender. No masses or pulsations present. EXTREMITIES: Lower extremities notable for 2+ edema to the midshin, right slightly worse than left, unchanged. No clubbing, cyanosis, or erythema. MUSCULOSKELETAL: No obvious bony deformities or joint pain. Strength 5/5 in upper and lower extremities. No calf tenderness. SKIN: No evidence of cellulitis, ecchymoses. Adequate skin turgor. NEUROLOGICAL: Awake and alert. No obvious cranial nerve deficits. Motor grossly within normal limits. Grossly normal muscle strength. Normal speech. PSYCHIATRIC: Appropriate mood and affect; insight and judgment normal. (Osvaldo Silvestre MD R2) A/P Assessment and Plan 71 [facility] male [facility] with history of atrial flutter admitted for symptomatic atrial flutter, COPD exacerbation, and chest pain work-up. Discharge Planning Pending clinical improvement, possibly 1-2 days. Of note, PT recommends rehab for this patient. Walk test ordered 05/27, pending. Patient will likely discharge to [facility] as he has been there in the past (Osvaldo Silvestre MD R2) Attending Attestation Pt. examined and case discussed with resident physician I have read the above note and agree with the assessment/plan as discussed with me I was involved in all medical decision making for this patient Taco Alejandro MD (Taco Alejandro MD) Problem List: (1) COPD exacerbation Status: Acute Plan: Plan: Home walk test for supplemental O2 (he will need home O2). Decrease Duonebs to q6h, make albuterol PRN. Lasix 40mg BID decreased to Lasix 40mg daily. Continue antibiotics with stop date 05/28 (7 day course). Discharge pending insurance approval of SNF. Hospital Course: Patient presented with shortness of breath and symptomatic atrial flutter. PMH significant for smoking and right lower lung resection. Pulmonology consulted, we appreciate their assistance in management - Advair HFA 115 at 2 puffs twice per day was added to regimen. On admission, WBC 10.4, neutrophil 89%, not clearly indicative of infection. Improved and wnl. Admission EKG showing afib as discussed elsewhere. BNP 749. Bicarb not elevated. Admission CXR showed chronic elevation of the right hemidiaphragm. Repeat on and 05/26 showed stable and no acute disease Re: possibility of PE, Wells score is 1.5. However, given no clinical improvement, D-dimer ordered and was WNL He required supplemental oxygen due to respiratory distress and increased work of breathing and was started on Bipap hs. Duonebs q4 hrs scheduled and alternated with albuterol. Continue Supplemental O2 to maintain sats above 90%. Encourage pt. to get OOB and ambulate. PT and OT ordered Lasix titrated from IV to PO Solu-Medrol 125 mg IV Solu-Medrol 60 mg IV every 6 hours 05/22-05/24, decreased to 40mg IV q6h on 05/24, now by mouth prednisone Azithromycin 500 mg PO 1, then 250 mg PO q24 hrs (x 5 days). Discontinue 05/28 Added Rocephin IV 05/22, continued 05/22-05/26 Cefuroxime PO started 05/26, will d/c 05/28 Continue Spiriva, Symbicort Rehab placement recommended by PT but patient not approved for SNF through insurance Home health PT ordered Plan for pt to have a total of 5 day course of Azithro and Rocephin. Plan to also send pt. with COPD meds and a 2 week steroid taper to decrease the chances of another flare-up. Home O2 walk test ordered as eval. for home O2 therapy prior to d/c. CM assisting. Pt. will need f/u with PCP and with fish peddler as an outpatient. Needs follow-up on CT findings of pulmonary nodules as outpatient Lasix 60 mg IV 1 given in ED. Now on PO as above Protonix 40 mg PO daily for GI protection and decrease chances of aspiration pneumonia. Mucinex 600 mg tab PO BID PRN congestion. Dextromethorphan PRN cough. Incentive spirometer, patient has not been using, counseled BiPap hs discontinued PFTs to be ordered as outpatient (2) Congestive heart failure Status: Acute Plan: Possible comorbid condition at admission given new afib and BNP elevation. Plan as above COPD exacerbation. BNP is notable to be 749 this admission, was 339 one month ago. Echocardiogram showing EF 5055% in April 2016, normal systolic function, normal wall thickness, normal wall motion without any regional wall motion abnormalities. Normal pulmonary artery pressure. He had 2+ edema of the lower extremities at admission, improving. Hospital course: -Elevate legs, SCDs -Trended troponin, EKG, CK - negative for signs of acute ischemic event. -Lasix as above -Continue medical management of CHF to include beta lynnette, statin, aspirin (3) Atrial flutter with rapid ventricular response Status: Acute Plan: Diagnosed April 2016. Discharge from the hospital at that time on Cardizem 240 mg daily and Eliquis is 5 mg daily. In ED on admission, required multiple IV medications (Adenosine 2, Cardizem 2 , digoxin 1 administered to control rate, which was originally in the 170s. Rate is currently in the 80s-90s. Cardizem drip was initiated in the ED, discontinued on day 3 of stay Cardiology consulted, placed patient on amiodarone and Cardizem drips initially , restarted Eliquis. Currently rate controlled on PO amiodarone and PO Cardizem, dosing titrated by cardiology to Amio 200mg daily and Cardizem 360mg daily for discharge No clinically significant telemetry events (4) Hypertension Status: Chronic Plan: Chronic. BP has been 100-170s SBP over last 24 hr Continue home dose lisinopril 10 mg daily Vasotec 0.125mg IV q8h PRN SBP >180, DBP >100 (5) Tobacco abuse Status: Acute Plan: Nicotine patch high dose (6) Alcohol abuse Status: Chronic Plan: CIWA protocol, discontinued given no symptoms of withdrawal (7) Fluids/Electrolytes/Nutrition/Prophylaxis Status: Acute Plan: Fluids: Caution IVF given fluid overloaded Electrolytes: monitor and replete as needed Nutrition: heart-healthy diet DVT Prophylaxis: Eliquis/bilateral SCDs GI Prophylaxis: Protonix 40mg PO daily dw Dr. Alejandro. (Osvaldo Silvestre MD R2) Problem Qualifiers (1) Congestive heart failure: Qualified Code: I50.9 - Congestive heart failure, unspecified congestive heart failure chronicity, unspecified congestive heart failure type (2) Hypertension: Qualified Code: I10 - Essential hypertension Osvaldo Silvestre MD R2 May 28, 2016 11:15 Taco Alejandro MD May 28, 2016 16:22
--- NOTE | 2016-05-28 12:18 | HHI.DS ---
Discharge Summary Admission Date May 21, 2016 at 13:28 Admitting Diagnosis (1) COPD exacerbation Plan: Plan: Home walk test for supplemental O2 (he will need home O2). Decrease Duonebs to q6h, make albuterol PRN. Lasix 40mg BID decreased to Lasix 40mg daily. Continue antibiotics with stop date 05/28 (7 day course). Discharge pending insurance approval of SNF. Hospital Course: Patient presented with shortness of breath and symptomatic atrial flutter. PMH significant for smoking and right lower lung resection. Pulmonology consulted, we appreciate their assistance in management - Advair HFA 115 at 2 puffs twice per day was added to regimen. On admission, WBC 10.4, neutrophil 89%, not clearly indicative of infection. Improved and wnl. Admission EKG showing afib as discussed elsewhere. BNP 749. Bicarb not elevated. Admission CXR showed chronic elevation of the right hemidiaphragm. Repeat on and 05/26 showed stable and no acute disease Re: possibility of PE, Wells score is 1.5. However, given no clinical improvement, D-dimer ordered and was WNL He required supplemental oxygen due to respiratory distress and increased work of breathing and was started on Bipap hs. Duonebs q4 hrs scheduled and alternated with albuterol. Continue Supplemental O2 to maintain sats above 90%. Encourage pt. to get OOB and ambulate. PT and OT ordered Lasix titrated from IV to PO Solu-Medrol 125 mg IV Solu-Medrol 60 mg IV every 6 hours 05/22-05/24, decreased to 40mg IV q6h on 05/24, now by mouth prednisone Azithromycin 500 mg PO 1, then 250 mg PO q24 hrs (x 5 days). Discontinue 05/28 Added Rocephin IV 05/22, continued 05/22-05/26 Cefuroxime PO started 05/26, will d/c 05/28 Continue Spiriva, Symbicort Rehab placement recommended by PT but patient not approved for SNF through insurance Home health PT ordered Plan for pt to have a total of 5 day course of Azithro and Rocephin. Plan to also send pt. with COPD meds and a 2 week steroid taper to decrease the chances of another flare-up. Home O2 walk test ordered as eval. for home O2 therapy prior to d/c. CM assisting. Pt. will need f/u with PCP and with analytic manager as an outpatient. Needs follow-up on CT findings of pulmonary nodules as outpatient Lasix 60 mg IV 1 given in ED. Now on PO as above Protonix 40 mg PO daily for GI protection and decrease chances of aspiration pneumonia. Mucinex 600 mg tab PO BID PRN congestion. Dextromethorphan PRN cough. Incentive spirometer, patient has not been using, counseled BiPap hs discontinued PFTs to be ordered as outpatient (2) Congestive heart failure Plan: Possible comorbid condition at admission given new afib and BNP elevation. Plan as above COPD exacerbation. BNP is notable to be 749 this admission, was 339 one month ago. Echocardiogram showing EF 5055% in April 2016, normal systolic function, normal wall thickness, normal wall motion without any regional wall motion abnormalities. Normal pulmonary artery pressure. He had 2+ edema of the lower extremities at admission, improving. Hospital course: -Elevate legs, SCDs -Trended troponin, EKG, CK - negative for signs of acute ischemic event. -Lasix as above -Continue medical management of CHF to include beta lynnette, statin, aspirin (3) Atrial flutter with rapid ventricular response Plan: Diagnosed April 2016. Discharge from the hospital at that time on Cardizem 240 mg daily and Eliquis is 5 mg daily. In ED on admission, required multiple IV medications (Adenosine 2, Cardizem 2 , digoxin 1 administered to control rate, which was originally in the 170s. Rate is currently in the 80s-90s. Cardizem drip was initiated in the ED, discontinued on day 3 of stay Cardiology consulted, placed patient on amiodarone and Cardizem drips initially , restarted Eliquis. Currently rate controlled on PO amiodarone and PO Cardizem, dosing titrated by cardiology to Amio 200mg daily and Cardizem 360mg daily for discharge No clinically significant telemetry events (4) Hypertension Plan: Chronic. BP has been 100-170s SBP over last 24 hr Continue home dose lisinopril 10 mg daily Vasotec 0.125mg IV q8h PRN SBP >180, DBP >100 (5) Tobacco abuse Plan: Nicotine patch high dose (6) Alcohol abuse Plan: CIWA protocol, discontinued given no symptoms of withdrawal (7) Fluids/Electrolytes/Nutrition/Prophylaxis Plan: Fluids: Caution IVF given fluid overloaded Electrolytes: monitor and replete as needed Nutrition: heart-healthy diet DVT Prophylaxis: Eliquis/bilateral SCDs GI Prophylaxis: Protonix 40mg PO daily dw Dr. Alejandro. Brief History 71M presents after three days of worsening shortness of breath and chest pain. Terribly bad symptoms, can make it to bathroom, rests, then back to bed. Heavy breathing for a while improves the symptoms but they do not go away. Sitting up helps, cannot lie flat for long without symptoms. Cannot speak after walking short distances due to shortness of breath. Endorses chest discomfort, "not pain " due to COPD, but did have chest pain this morning. No other symptoms including fevers, chills, recent illnesses, nausea. Diarrhea chronically since he has had COPD, sometimes has bright red blood in the stool, last episode 2 days again. These symptoms are chronic, at baseline he is able to only get twenty feet of walking prior to symptoms, gradually worsening. Uses albuterol 3-4 times per day for the last couple of years. Using inhaler every time he gets up. Using Symbicort and Spiriva 5-6 times per day, not aware that these are not PRNs. 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 He also notes have a history of testicular cancer - one testis removed. Was on oxygen at home a couple of years ago which was discontinued. Was doing better when he was on oxygen. He doesn't think he'd be admitted if he had oxygen at home. He was admitted for new onset A. fib in April, and at that time he was started on Eliquis 5 mg daily and Cardizem 240 mg daily. Patient does not report knowing which medications he is on at home. CBC/BMP: 05/28/16 0630 05/28/16 0630 Significant Findings Laboratory Tests Test 05/26/16 05/27/16 05/28/16 05:52 06:25 06:30 Red Blood Count 3.93 MIL/MM3 3.89 MIL/MM3 3.98 MIL/MM3 (4.50-5.90) (4.50-5.90) (4.50-5.90) Hemoglobin 12.2 GM/DL 12.1 GM/DL 12.3 GM/DL (13.0-17.0) (13.0-17.0) (13.0-17.0) Hematocrit 36.9 % 36.4 % 37.6 % (39.0-51.0) (39.0-51.0) (39.0-51.0) Mean Platelet Volume 6.7 FL 6.9 FL 6.8 FL (7.0-11.0) (7.0-11.0) (7.0-11.0) Neutrophils (%) (Auto) 89.3 % 87.1 % 74.7 % (16.0-70.0) (16.0-70.0) (16.0-70.0) Lymphocytes (%) (Auto) 2.6 % 3.5 % (9.0-44.0) (9.0-44.0) Lymphocytes # (Auto) 0.2 TH/MM3 0.3 TH/MM3 (1.0-4.8) (1.0-4.8) Carbon Dioxide Level 33.5 MEQ/L 34.8 MEQ/L 38.0 MEQ/L (21.0-32.0) (21.0-32.0) (21.0-32.0) Blood Urea Nitrogen 35 MG/DL (7-18) 34 MG/DL (7-18) 29 MG/DL (7-18) Random Glucose 127 MG/DL 116 MG/DL 66 MG/DL (74-106) (74-106) (74-106) Calcium Level 8.1 MG/DL 8.1 MG/DL 8.3 MG/DL (8.5-10.1) (8.5-10.1) (8.5-10.1) Monocytes (%) (Auto) 9.2 % (0.0-8.0) 14.7 % (0.0-8.0) Neutrophils # (Auto) 7.8 TH/MM3 (1.8-7.7) Neutrophils % (Manual) 87 % (16-70) Lymphocytes % 3 % (9-44) Neutrophils # (Manual) 8.1 TH/MM3 (1.8-7.7) Monocytes # (Auto) 1.4 TH/MM3 (0-0.9) Myelocytes 3 % (0-0) Anion Gap 3 MEQ/L (5-15) PE at Discharge GENERAL: Well developed, well-nourished elderly male. on 2L NC breathing comfortably EYES: PERRLA. EOMI. Lids and conjunctivae reveal no gross abnormality. No scleral icterus. ENT: Hearing adequate. Head NCAT. MMM. OP/OC clear. No cervical or supraclavicular LAD. NECK: No JVD. No carotid bruits. Neck supple, no masses. Trachea midline. No thyromegaly. RESPIRATORY: No evidence of pulmonary edema. Respiratory rate approximately 18. No wheezes, air movement moderate CARDIOVASCULAR: Telemetry reviewed; HR approx 90 with regular rhythm. Radial and DP pulses 2+ and symmetric bilaterally. Brisk capillary refill. ABDOMEN: Bowel sounds present in all quadrants. Nontender. No masses or pulsations present. EXTREMITIES: Lower extremities notable for 2+ edema to the midshin, right slightly worse than left, unchanged. No clubbing, cyanosis, or erythema. MUSCULOSKELETAL: No obvious bony deformities or joint pain. Strength 5/5 in upper and lower extremities. No calf tenderness. SKIN: No evidence of cellulitis, ecchymoses. Adequate skin turgor. NEUROLOGICAL: Awake and alert. No obvious cranial nerve deficits. Motor grossly within normal limits. Grossly normal muscle strength. Normal speech. PSYCHIATRIC: Appropriate mood and affect; insight and judgment normal. Hospital Course Mr. Elliott is a 71-year-old male with a past medical history of right lower lobe lung resection, tobacco use, hypertension, severe COPD, alcohol abuse, he was admitted on May 21, 2016 with worsening shortness of breath. He was found to be in atrial fibrillation, with a rate of 169, and required both amiodarone and Cardizem gtt. Eventually he was transitioned to by mouth amiodarone and Cardizem, and was rate controlled. His BNP was elevated 749, and had severe respiratory wheezes. He was given IV diuretics, breathing treatments, IV steroids, and required BiPAP briefly. Over the course of 6 days, he improved, and was satting at 95% on 2 L nasal cannula. He was walking 250-300 feet with minimal assistance, however was becoming short of breath. He failed his home walk test and will require home O2. We also treated him with antibiotics for an acute exacerbation of his COPD. He received 5 days of azithromycin as well as cefuroxime. His cardiac workup revealed no change in serial EKGs, troponin. He was discharged home when stable condition. He would benefit from extensive pulmonary rehabilitation. Pt Condition on Discharge: Fair Discharge Disposition: Discharge to SNF Discharge Instructions DIET: Follow Instructions for: As Tolerated, No Restrictions Activities you can perform: Regular-No Restrictions Osvaldo Silvestre MD R2 May 28, 2016 12:18
== END 2016-05-28 13:36 | DRG 191 ==
LOC: NEPA 11:03 → NEDA 13:28 → HCIS 18:29 → N04B 05-24 22:11
PROVIDERS: ADMIT Family Medicine; ATTEND Family Medicine
PROC: 5A09357 Assistance with Respiratory Ventilation, Less than 24 Consecutive Hours, Continuous Positive Airway Pressure (ICD-10-PCS; principal; 2016-05-21)
DX: J44.1 Chronic obstructive pulmonary disease with (acute) exacerbation (principal); I48.92 Unspecified atrial flutter; I50.9 Heart failure, unspecified; F17.210 Nicotine dependence, cigarettes, uncomplicated; I10 Essential (primary) hypertension; F10.10 Alcohol abuse, uncomplicated; Z85.47 Personal history of malignant neoplasm of testis; Z85.118 Personal history of other malignant neoplasm of bronchus and lung; Z90.2 Acquired absence of lung [part of]; Z90.79 Acquired absence of other genital organ(s); Z79.02 Long term (current) use of antithrombotics/antiplatelets; E11.9 Type 2 diabetes mellitus without complications; Z92.3 Personal history of irradiation; Z92.21 Personal history of antineoplastic chemotherapy; B19.20 Unspecified viral hepatitis C without hepatic coma; I25.10 Atherosclerotic heart disease of native coronary artery without angina pectoris
CPT/HCPCS: 36600; 71010; 71250; 80048; 80053; 81001; 82550; 82805; 83735; 83880; 84443; 84484; 85007; 85025; 85027; 85379; 85610; 85730; 93005; 93971; 94002; 94003; 94150; 94620; 94640; 94664; 96365; 96376; J0282; J0696; J1160; J1650; J1940; J2060; J2920; J2930; J7060; J7512; J7613

== ENCOUNTER 2016-07-16 16:17 | Inpatient (IN) | payer OTHER ==
[2016-07-16] VITALS (12 sets, daily range): BP systolic 109–158; BP diastolic 56–78; PULSE 101–124; RESP 24–32; TEMP 98.2–99.5; O2SAT 96–100
[~2016-07-16] VITALS: Ht 182.9 cm; Wt 120.7 kg
[~2016-07-16 16:17] MED LIST changes: +ALBU0.08 INH; -ALBU0.086 INH; -ALBU2.5I INH; -ALBU6.7H INH; +AMIO200T PO; +ASPI81TA2 PO; +BUSP5TAB PO; +CARD180C5 PO; -CARD240C6 PO; -CEFT250T8 PO; +CEFU1TAB20 PO; -FOLI1 PO; +FOLI1TAB4 PO; +FURO40TA PO; +GUAI100S7 PO; +IPRASOL INH; -LACTCHW3 CHEW; +LISI10TA3 PO; -LISI5 PO; -LORA-373 PO; -MUCI30TA2 PO; +MULT-142 PO; -MVI PO; +NEBUKIT5; +NEBULIZER1 MI1; +OXYGENTANK NAS.CANULA; +PANT40TA3 PO; -PRED-1 PO; -PRED10PA PO; +PRED20 PO; +SPIRCAP INH; -TIOT18I INH; +TYLE325T PO; +ZITH250T PO
[2016-07-16] MEDS ORDERED: methylPREDNISolone SOD SUCC 125 MG/2 ML VIAL IVP ONE (16:30)
[2016-07-16] MEDS ORDERED: FUROSEMIDE 40 MG/4 ML VIAL IVP ONE (16:30)
[2016-07-16] MEDS ORDERED: MORPHINE SULFATE 4 MG/ML INJ IV PUSH ONE (16:30)
[2016-07-16] MEDS ORDERED: ONDANSETRON HCL 4 MG/2 ML VIAL IV PUSH ONE (16:30)
[2016-07-16] MEDS ORDERED: SODIUM CHLORIDE 0.9% FLUSH 10 ML FLUSH IVF PRN (16:30)
[2016-07-16] MEDS: RESP: ALBUTEROL 2.5 MG/IPRATROPIUM 0.5 MG NEB (SCH) INH (16:45)
[2016-07-16 16:51] LABS: AUTOMATED NEUTROPHIL # 5.7 TH/MM3 (1.8-7.7); BASOPHIL # 0.1 TH/MM3 (0-0.2); EOSINOPHIL # 0.9 TH/MM3 (0-0.4); EOSINOPHIL % 9.7 % (0.0-4.0); HEMO FLAGS DIFF FINAL; LYMPH % 13.6 % (9.0-44.0); LYMPHOCYTE # 1.3 TH/MM3 (1.0-4.8); MEAN CELL VOLUME 91.7 FL (80.0-100.0); MEAN CORPUSCULAR HEMOGLOBIN 30.8 PG (27.0-34.0); MEAN CORPUSCULAR HGB CONC 33.6 % (32.0-36.0); MONO % 14.2 % (0.0-8.0); NEUT % 61.5 % (16.0-70.0); PLATELET COUNT 239 TH/MM3 (150-450); RED BLOOD COUNT 3.16 MIL/MM3 (4.50-5.90); RED CELL DISTRIBUTION WIDTH 18.1 % (11.6-17.2); WHITE BLOOD COUNT 9.3 TH/MM3 (4.0-11.0)
[2016-07-16 16:52] LABS: BLOOD GAS VENOUS BASE EXCESS 2.3 mmol/L (-2-2); BLOOD GAS VENOUS HCO3 28 mmol/L (22-26); BLOOD GAS VENOUS O2 HGB SAT 88 % (70-76); BLOOD GAS VENOUS PCO2 60 mmHg (44-48); BLOOD GAS VENOUS PO2 70 mmHg (35-40); TEMP CORR TO 98.6
[2016-07-16 16:53] LABS: CRITICAL VALUE YES; DRAW SITE I.V.; FIO2 40 %; OXYGEN DEVICE BIPAP; STAT YES; VENT SETTINGS IPAP15/EPAP5
--- NOTE | 2016-07-16 16:53 | RADRPT ---
EXAM DATE/TIME: 07/16/2016 16:39 [facility] COMPARISON: CHEST SINGLE AP, May 26, 2016, 6:01. INDICATIONS : Shortness of breath. MEDICAL HISTORY : Chronic obstructive pulmonary disease. Congestive heart failure. SURGICAL HISTORY : lobectomy. ENCOUNTER: Initial ACUITY: 1 day PAIN SCORE: 0/10 LOCATION: Bilateral chest FINDINGS: A single view of the chest demonstrates the lungs to be symmetrically aerated without evidence of mas s, infiltrate or effusion. Stable elevation of the right hemidiaphragm. The cardiomediastinal contou rs are unremarkable. Osseous structures are intact. CONCLUSION: No acute disease. Antwan Reeves Jr., MD on July 16, 2016 at 16:51 Board Certified Radiologist. This report was verified electronically.
[2016-07-16 17:10] LABS: ALT (GPT) 32 U/L (12-78); ANION GAP 7 MEQ/L (5-15); AST (GOT) 32 U/L (15-37); BICARBONATE 28.1 MEQ/L (21.0-32.0); BLOOD UREA NITROGEN 11 MG/DL (7-18); CHLORIDE 99 MEQ/L (98-107); GLOMERULAR FILTRATION RATE 71 ML/MIN (>89); MAGNESIUM 2.1 MG/DL (1.5-2.5); POTASSIUM 4.6 MEQ/L (3.5-5.1); SODIUM (NA) 134 MEQ/L (136-145)
[2016-07-16 17:14] LABS: ALKALINE PHOSPHATASE 71 U/L (45-117); TOTAL BILIRUBIN ADULT 0.6 MG/DL (0.2-1.0)
[2016-07-16 17:18] LABS: APTT (PATIENT) 28.8 SEC (24.3-30.1); INTERNATIONAL NORMALIZED RATIO 1.1 RATIO; PROTHROMBIN TIME - PATIENT 11.9 SEC (9.8-11.6)
[2016-07-16 17:24] LABS: CREATINE KINASE 83 U/L (39-308)
--- NOTE | 2016-07-16 17:52 | PD ---
HPI Chief Complaint: Respiratory Distress Time Seen by Provider: 16:29 Travel History International Travel<30 days: No Contact w/Intl Traveler<30days: No Traveled to known affect area: No History of Present Illness HPI The patient is a 71 year-old male who presents to the emergency department for shortness of breath. The patient states any increasing shortness of breath for the last 2-3 days and subsequently called EMS. EMS states when they arrived the patient was somewhat hypoxic, had an elevated respiratory rate in the 30s, therefore, was placed on DuoNeb's. The patient does have a history of COPD as well as congestive heart failure. The patient has increasing shortness breath or last several days without any chest pain. He does complain of mild orthopnea as well as dyspnea upon exertion. He also complains of edema to lower extremities bilaterally. He denies any known history of pulmonary embolism or DVT. The patient's primary physician is at the [place] [facility]. Symptoms are moderate, progressing, minimally alleviated with DuoNeb's. PFSH Past Medical History Arthritis: Yes Asthma: Yes Heart Rhythm Problems: Yes Cancer: Yes (TESTICLE, LUNG) Cardiovascular Problems: Yes High Cholesterol: No Chemotherapy: Yes Chest Pain: Yes Congestive Heart Failure: Yes COPD: Yes Cerebrovascular Accident: No Coronary Artery Disease: No Diabetes: No Diminished Hearing: No Endocrine: No Gastrointestinal Disorders: Yes GERD: No Genitourinary: Yes Hepatitis: Yes Hiatal Hernia: No Hypertension: Yes Immune Disorder: No Kidney Stones: No Musculoskeletal: Yes Neurologic: No Psychiatric: No Reproductive: No Respiratory: Yes Migraines: Yes Renal Failure: No Seizures: No Sleep Apnea: Yes Thyroid Disease: No Ulcer: Yes Past Surgical History Abdominal Surgery: Yes (Part of liver removed) Cardiac Surgery: No Ear Surgery: No Endocrine Surgery: No Eye Surgery: No Genitourinary Surgery: Yes (testicular cancer) Gynecologic Surgery: No Neurologic Surgery: No Oral Surgery: No Thoracic Surgery: Yes (RL Lobe removed) Other Surgery: Yes (HAND SX) Social History Alcohol Use: Yes (6-8 [place]/DAY) Tobacco Use: Yes (1/2) Substance Use: No Allergies-Medications (Allergen,Severity, Reaction): Coded Allergies: No Known Allergies (Verified , 05/21/16) Reported Meds & Prescriptions Reported Meds & Active Scripts Active Prednisone 20 Mg Tab 40 Mg PO DAILY Furosemide 40 Mg Tab 40 Mg PO DAILY Cefuroxime (Cefuroxime Axetil) 500 Mg Tab 500 Mg PO BID Albuterol Neb (Albuterol Sulfate) 2.5 Mg/3 Ml Neb 2.5 Mg INH Q4HR NEB PRN Nebulizer Kit/Tubing/Mout (N/A) 1 Kit Kit 1 Kit .ROUTE DIRECTED Nebulizer 1 Mis Mis 1 Ea .ROUTE DIRECTED Zithromax (Azithromycin) 250 Mg Tab 250 Mg PO DAILY Amiodarone (Amiodarone HCl) 200 Mg Tab 200 Mg PO DAILY Cardizem CD 24 HR (Diltiazem CD 24 HR) 180 Mg Caper 360 Mg PO DAILY Pantoprazole (Pantoprazole Sodium) 40 Mg Tab 40 Mg PO DAILY Eliquis (Apixaban) 5 Mg Tab 5 Mg PO BID Duoneb (Ipratropium-Albuterol Neb) 0.5-2.5 Mg/3 Ml Neb 1 Ampule INH Q6HR WHILE AWAKE NEB PRN Oxygen tank (Oxygen) 1 Ea Tank 2 Liter CHRISTIANNE.CANULA CONTINUOUS Oxygen Concentrator Portable Gaseous 2 L/min via Nasal Cannula Continuous For 99 months Symbicort Inh (Budesonide/Formoterol Fumarate) 160-4.5 Mcg/Act Aero 2 Puff INH Q12HR Buspirone (Buspirone HCl) 5 Mg Tab 5 Mg PO TID Spiriva Handihaler (Tiotropium Inh) 18 Mcg Cap 1 Puff INH DAILY 1 capsule = 18 mcg Thiamine (Thiamine HCl) 100 Mg Tab 100 Mg PO DAILY Multi Vitamin and Mineral (Multiple Vitamins W/ Minerals) 1 Tab Tab 1 Tab PO DAILY Guaifenesin Liq (Guaifenesin) 100 mg/5 ML Soln 200 Mg PO QID PRN Folate (Folic Acid) 1 Mg Tab 1 Mg PO DAILY Lisinopril 10 Mg Tab 10 Mg PO DAILY Aspirin EC Low Dose (Aspirin) 81 Mg Tabec 162 Mg PO DAILY Nicotine Patch (Nicotine) 21 Mg/24 Hr Patch 21 Mg T-DERMAL DAILY Reported Tylenol (Acetaminophen) 325 Mg Tab 650 Mg PO Q4H PRN Review of Systems Except as stated in HPI: all other systems reviewed are Neg General / Constitutional: No: Fever HENT: No: Lightheadedness Cardiovascular: Positive: Irregular Rhythm, Tachycardia, Diaphoresis, Dyspnea on exertion, No: Chest Pain or Discomfort Respiratory: Positive: Shortness of Breath Gastrointestinal: No: Nausea, Vomiting, Abdominal Pain Musculoskeletal: Positive: Weakness, Edema Neurologic: Positive: Weakness, No: Dizziness Physical Exam Narrative GENERAL: Awake, alert, pleasant 71-year-old male who appears his stated age and is in moderate respiratory distress. SKIN: Focused skin assessment warm, slightly diaphoretic.. HEAD: Atraumatic. Normocephalic. EYES: Pupils equal and round. No scleral icterus. No injection or drainage. ENT: No nasal bleeding or discharge. Mucous membranes pink and moist. NECK: Trachea midline. No JVD. CARDIOVASCULAR: Irregularly irregular, tachycardic with a heart rate of 110. RESPIRATORY: Tachypnea with a respiratory rate of 32, diminished sounds in the bases bilateral with prolonged expiratory phase and scattered wheezes and rhonchi. GASTROINTESTINAL: Abdomen soft, obese, no rebound tenderness. MUSCULOSKELETAL: No obvious deformities. No clubbing. No cyanosis. Bilateral lower extremity pitting edema.. NEUROLOGICAL: Awake and alert. No obvious cranial nerve deficits. Motor grossly within normal limits. Normal speech. PSYCHIATRIC: Appropriate mood and affect; insight and judgment normal. Data Data Last Documented VS Vital Signs Date Time Temp Pulse Resp B/P Pulse Ox O2 Delivery O2 Flow Rate FiO2 07/16/16 16:33 98.2 102 24 109/56 100 BiPAP 40 07/16/16 16:17 2 Orders Complete Blood Count With Diff (07/16/16 16:29) Comprehensive Metabolic Panel (07/16/16 16:29) B-Type Natriuretic Peptide (07/16/16 16:29) Act Partial Throm Time (Ptt) (07/16/16 16:29) Prothrombin Time / Inr (Pt) (07/16/16 16:29) Magnesium (Mg) (07/16/16 16:29) Ckmb (Isoenzyme) Profile (07/16/16 16:29) Troponin I (07/16/16 16:29) Blood Culture (07/16/16 16:29) Iv Access Insert/Monitor (07/16/16 16:29) Ecg Monitoring (07/16/16 16:29) Oximetry (07/16/16 16:29) Oxygen Administration (07/16/16 16:29) Chest, Single Ap (07/16/16 16:29) Sodium Chloride 0.9% Flush (Ns Flush) (07/16/16 16:30) Furosemide Inj (Lasix Inj) (07/16/16 16:30) Methylprednisolone So Succ Inj (Solumedr (07/16/16 16:30) Albuterol-Ipratropium Neb (Duoneb Neb) (07/16/16 16:30) Resp Bipap / Cpap Non Invas Vt (07/16/16 16:29) Resp Blood Gas Venous (07/16/16 ) Morphine Inj (Morphine Inj) (07/16/16 16:30) Ondansetron Inj (Zofran Inj) (07/16/16 16:30) Electrocardiogram (07/16/16 16:26) Blood Gas Venous (Vbg) (07/16/16 16:18) Amiodarone (Cordarone) (07/17/16 09:00) Apixaban (Eliquis) (07/16/16 21:00) Aspirin Ec (Ecotrin Ec) (07/17/16 09:00) Buspirone (Buspar) (07/17/16 09:00) Diltiazem Cd (Cardizem Cd) (07/17/16 09:00) Folic Acid (Folate) (07/17/16 09:00) Furosemide (Lasix) (07/17/16 09:00) Lisinopril (Prinivil) (07/17/16 09:00) Nicotine 21 Mg Patch.24 Hr (Habitrol 21 (07/17/16 09:00) Pantoprazole (Protonix) (07/17/16 09:00) Prednisone (Deltasone) (07/17/16 09:00) Thiamine (Vit B1) (Vitamin B1) (07/17/16 09:00) Remove Old Patch (07/17/16 09:00) Admit To Inpatient (07/16/16 ) Code Status (07/16/16 18:08) Vital Signs (Adult) Q4H (07/16/16 18:08) Activity Oob Ad Yani (07/16/16 18:08) Development Spec / Telemetry .CONTINUOUS (07/16/16 18:08) Intake + Output JUSTIN.QSHIFT (07/16/16 18:08) Notify Dr: Other (07/16/16 18:08) Diet Npo (07/16/16 Dinner) Sodium Chlor 0.9% 1000 Ml Inj (Ns 1000 M (07/16/16 18:30) Sodium Chloride 0.9% Flush (Ns Flush) (07/16/16 18:15) Sodium Chloride 0.9% Flush (Ns Flush) (07/16/16 21:00) Acetaminophen (Tylenol) (07/16/16 18:15) Ondansetron Inj (Zofran Inj) (07/16/16 18:15) Bisacodyl Supp (Dulcolax Supp) (07/16/16 18:15) Docusate Sodium (Colace) (07/16/16 20:00) Basic Metabolic Panel (Bmp) (07/17/16 06:00) Complete Blood Count With Diff (07/17/16 06:00) Creatine Kinase (Cpk) (07/16/16 18:08) Creatine Kinase (Cpk) (07/17/16 00:08) Troponin I (07/16/16 18:08) Troponin I (07/17/16 00:08) Urinalysis - C+S If Indicated (07/16/16 18:08) Pt Request For Service (07/16/16 18:08) Case Management Consult (07/16/16 18:08) Naloxone Inj (Narcan Inj) (07/16/16 18:15) Inpatient Certification (07/16/16 ) Albuterol-Ipratropium Neb (Duoneb Neb) (07/16/16 20:00) Guaifenesin Er (Mucinex Er) (07/16/16 21:00) Resp Incentive Spirometry (07/16/16 ) Labs Laboratory Tests Test 07/16/16 07/16/16 16:18 16:35 Blood Gas Puncture Site I.V. Blood Gas Patient Temperature 98.6 Venous Blood pH 7.30 Venous Blood Partial Pressure 60 mmHg CO2 Venous Blood Partial Pressure 70 mmHg O2 Venous Blood HCO3 28 mmol/L Venous Blood Oxygen Saturation 88 % Venous Blood Oxygen Content 12.0 Vol % Venous Blood Base Excess 2.3 mmol/L Oxygen Delivery Device BIPAP Blood Gas Ventilator Setting IPAP15/EPAP5 Blood Gas Inspired Oxygen 40 % White Blood Count 9.3 TH/MM3 Red Blood Count 3.16 MIL/MM3 Hemoglobin 9.7 GM/DL Hematocrit 29.0 % Mean Corpuscular Volume 91.7 FL Mean Corpuscular Hemoglobin 30.8 PG Mean Corpuscular Hemoglobin 33.6 % Concent Red Cell Distribution Width 18.1 % Platelet Count 239 TH/MM3 Mean Platelet Volume 6.8 FL Neutrophils (%) (Auto) 61.5 % Lymphocytes (%) (Auto) 13.6 % Monocytes (%) (Auto) 14.2 % Eosinophils (%) (Auto) 9.7 % Basophils (%) (Auto) 1.0 % Neutrophils # (Auto) 5.7 TH/MM3 Lymphocytes # (Auto) 1.3 TH/MM3 Monocytes # (Auto) 1.3 TH/MM3 Eosinophils # (Auto) 0.9 TH/MM3 Basophils # (Auto) 0.1 TH/MM3 CBC Comment DIFF FINAL Differential Comment Prothrombin Time 11.9 SEC Prothromb Time International 1.1 RATIO Ratio Activated Partial 28.8 SEC Thromboplast Time Sodium Level 134 MEQ/L Potassium Level 4.6 MEQ/L Chloride Level 99 MEQ/L Carbon Dioxide Level 28.1 MEQ/L Anion Gap 7 MEQ/L Blood Urea Nitrogen 11 MG/DL Creatinine 1.04 MG/DL Estimat Glomerular Filtration 71 ML/MIN Rate Random Glucose 110 MG/DL Calcium Level 8.7 MG/DL Magnesium Level 2.1 MG/DL Total Bilirubin 0.6 MG/DL Aspartate Amino Transf 32 U/L (AST/SGOT) Alanine Aminotransferase 32 U/L (ALT/SGPT) Alkaline Phosphatase 71 U/L Total Creatine Kinase 83 U/L Troponin I LESS THAN 0.02 NG/ML B-Type Natriuretic Peptide 104 PG/ML Total Protein 6.5 GM/DL Albumin 3.1 GM/DL MDM Medical Decision Making Medical Screen Exam Complete: Yes Emergency Medical Condition: Yes Medical Record Reviewed: Yes Interpretation(s) EKG reveals atrial fibrillation with RVR, rate 107. Laboratory Tests Test 07/16/16 07/16/16 16:18 16:35 Blood Gas Puncture Site I.V. Blood Gas Patient Temperature 98.6 Venous Blood pH 7.30 Venous Blood Partial Pressure 60 mmHg CO2 Venous Blood Partial Pressure 70 mmHg O2 Venous Blood HCO3 28 mmol/L Venous Blood Oxygen Saturation 88 % Venous Blood Oxygen Content 12.0 Vol % Venous Blood Base Excess 2.3 mmol/L Oxygen Delivery Device BIPAP Blood Gas Ventilator Setting IPAP15/EPAP5 Blood Gas Inspired Oxygen 40 % White Blood Count 9.3 TH/MM3 Red Blood Count 3.16 MIL/MM3 Hemoglobin 9.7 GM/DL Hematocrit 29.0 % Mean Corpuscular Volume 91.7 FL Mean Corpuscular Hemoglobin 30.8 PG Mean Corpuscular Hemoglobin 33.6 % Concent Red Cell Distribution Width 18.1 % Platelet Count 239 TH/MM3 Mean Platelet Volume 6.8 FL Neutrophils (%) (Auto) 61.5 % Lymphocytes (%) (Auto) 13.6 % Monocytes (%) (Auto) 14.2 % Eosinophils (%) (Auto) 9.7 % Basophils (%) (Auto) 1.0 % Neutrophils # (Auto) 5.7 TH/MM3 Lymphocytes # (Auto) 1.3 TH/MM3 Monocytes # (Auto) 1.3 TH/MM3 Eosinophils # (Auto) 0.9 TH/MM3 Basophils # (Auto) 0.1 TH/MM3 CBC Comment DIFF FINAL Differential Comment Prothrombin Time 11.9 SEC Prothromb Time International 1.1 RATIO Ratio Activated Partial 28.8 SEC Thromboplast Time Sodium Level 134 MEQ/L Potassium Level 4.6 MEQ/L Chloride Level 99 MEQ/L Carbon Dioxide Level 28.1 MEQ/L Anion Gap 7 MEQ/L Blood Urea Nitrogen 11 MG/DL Creatinine 1.04 MG/DL Estimat Glomerular Filtration 71 ML/MIN Rate Random Glucose 110 MG/DL Calcium Level 8.7 MG/DL Magnesium Level 2.1 MG/DL Total Bilirubin 0.6 MG/DL Aspartate Amino Transf 32 U/L (AST/SGOT) Alanine Aminotransferase 32 U/L (ALT/SGPT) Alkaline Phosphatase 71 U/L Total Creatine Kinase 83 U/L Troponin I LESS THAN 0.02 NG/ML B-Type Natriuretic Peptide 104 PG/ML Total Protein 6.5 GM/DL Albumin 3.1 GM/DL Last Impressions Chest X-Ray 07/16/16 1629 Signed Impressions: Service Date/Time: Saturday, July 16, 2016 16:39 - CONCLUSION: No acute disease. Antwan Reeves Jr., MD Differential Diagnosis Differential diagnosis includes COPD exacerbation, congestive heart failure, pulmonary embolism, pneumonia, acute coronary syndrome, pleural effusion, acute pulmonary edema, pneumothorax. Narrative Course IV was established, labs are drawn and sent, and the patient was placed on cardiac telemetry monitoring and continuous pulse oximetry monitoring. EKG was ordered and interpreted. Chest x-ray was obtained. The patient had elevated respiratory rate in the 30s despite oxygen and duo nebs, therefore, was placed on BiPAP 12/5 with 60%. VBG was obtained which revealed a pH is 7.297 with PCO2 59.5 and bicarbonate of 28.2, mild retention with mild respiratory acidosis. Chest x-ray was reveals no acute pulmonary disease. BNP is minimally over 100. It appears to be a COPD exacerbation with hypoxia. The patient will be admitted to the on-call medical service for COPD exacerbation, atrial fibrillation with RVR, and hypoxia. Critical Care Narrative Aggregate critical care time was 20 minutes. Time to perform other separately billable procedures was not included in the critical care time. My time did not include minutes spent treating any other patients simultaneously or on activities that did not directly contribute to the patient's treatment. The services I provided to this patient were to treat and/or prevent clinically significant deterioration that could result in: Anoxia, hypoxia, arrhythmia, aspiration, . I provided critical care services requiring my management, as noted below: Chart data review, documentation time, medication orders and management, vital sign assessments/reviewing monitor data, ordering and reviewing lab tests, ordering and interpreting/reviewing x-rays and diagnostic studies, care of the patient and discussion of the patient with the admitting physicians. Physician Communication Physician Communication The on-call medical service was paged for admission. Diagnosis Primary Impression: COPD exacerbation Additional Impression: Atrial fibrillation with RVR Admitting Information Admitting Physician Requests: Admit Condition: Stable Micky Hoffman MD July 16, 2016 17:52
[2016-07-16] MEDS ORDERED: NALOXONE HCL 0.4 MG/ML AMP IV PRN (18:15)
[2016-07-16] MEDS ORDERED: ONDANSETRON HCL 4 MG/2 ML VIAL IVP PRN (18:15)
[2016-07-16] MEDS ORDERED: BISACODYL 10 MG SUPP RECTAL PRN (18:15)
[2016-07-16] MEDS ORDERED: ACETAMINOPHEN 325 MG TAB PO PRN (18:15)
--- NOTE | 2016-07-16 18:20 | HHI.HP ---
[facility] Phys[facility] Admission Diagnosis Diagnoses: Chief Complaint: Shortness of breath. Travel History International Travel<30 Days: No Contact w/Intl Traveler <30 Da: No Traveled to Known Affected Are: No History of Present Illness The patient is a 71 year-old male who presents to the emergency department for shortness of breath. The patient states any increasing shortness of breath for the last 2-3 days and subsequently called EMS. EMS states when they arrived the patient was somewhat hypoxic, had an elevated respiratory rate in the 30s, therefore, was placed on DuoNeb's. The patient does have a history of COPD as well as congestive heart failure. The patient has increasing shortness breath or last several days without any chest pain. He does complain of mild orthopnea as well as dyspnea upon exertion. He also complains of edema to lower extremities bilaterally. He denies any known history of pulmonary embolism or DVT. The patient's primary physician is at the [place] [facility]. Symptoms are moderate, progressing, minimally alleviated with DuoNeb's. Seen in Emergency Room in the presence of Doctor Yasmin on BiPAP he will go to [facility] and is improving fast on BiPAP. not able to answer well our questions. Review of Systems Respiratory: COMPLAINS OF: Shortness of breath Past Family Social History Past Medical History OA COPD Testicular and Lung Cancer Atrial Fibrillation Hepatitis Hypertension MAGO Past Surgical History Liver Surgery Testicular surgery Right Lower lobe remvoed Reported Medications Reported Meds & Active Scripts Active Prednisone 20 Mg Tab 40 Mg PO DAILY Furosemide 40 Mg Tab 40 Mg PO DAILY Cefuroxime (Cefuroxime Axetil) 500 Mg Tab 500 Mg PO BID Albuterol Neb (Albuterol Sulfate) 2.5 Mg/3 Ml Neb 2.5 Mg INH Q4HR NEB PRN Nebulizer Kit/Tubing/Mout (N/A) 1 Kit Kit 1 Kit .ROUTE DIRECTED Nebulizer 1 Mis Mis 1 Ea .ROUTE DIRECTED Zithromax (Azithromycin) 250 Mg Tab 250 Mg PO DAILY Amiodarone (Amiodarone HCl) 200 Mg Tab 200 Mg PO DAILY Cardizem CD 24 HR (Diltiazem CD 24 HR) 180 Mg Caper 360 Mg PO DAILY Pantoprazole (Pantoprazole Sodium) 40 Mg Tab 40 Mg PO DAILY Eliquis (Apixaban) 5 Mg Tab 5 Mg PO BID Duoneb (Ipratropium-Albuterol Neb) 0.5-2.5 Mg/3 Ml Neb 1 Ampule INH Q6HR WHILE AWAKE NEB PRN Oxygen tank (Oxygen) 1 Ea Tank 2 Liter CHRISTIANNE.CANULA CONTINUOUS Oxygen Concentrator Portable Gaseous 2 L/min via Nasal Cannula Continuous For 99 months Symbicort Inh (Budesonide/Formoterol Fumarate) 160-4.5 Mcg/Act Aero 2 Puff INH Q12HR Buspirone (Buspirone HCl) 5 Mg Tab 5 Mg PO TID Spiriva Handihaler (Tiotropium Inh) 18 Mcg Cap 1 Puff INH DAILY 1 capsule = 18 mcg Thiamine (Thiamine HCl) 100 Mg Tab 100 Mg PO DAILY Multi Vitamin and Mineral (Multiple Vitamins W/ Minerals) 1 Tab Tab 1 Tab PO DAILY Guaifenesin Liq (Guaifenesin) 100 mg/5 ML Soln 200 Mg PO QID PRN Folate (Folic Acid) 1 Mg Tab 1 Mg PO DAILY Lisinopril 10 Mg Tab 10 Mg PO DAILY Aspirin EC Low Dose (Aspirin) 81 Mg Tabec 162 Mg PO DAILY Nicotine Patch (Nicotine) 21 Mg/24 Hr Patch 21 Mg T-DERMAL DAILY Reported Tylenol (Acetaminophen) 325 Mg Tab 650 Mg PO Q4H PRN Allergies: Coded Allergies: No Known Allergies (Verified , 05/21/16) Active Ordered Medications Current Medications Medications (Trade) Dose Ordered Sig/Elif Route Start Time Stop Time Status Last Admin (NS Flush) 2 ml UNSCH PRN IVF 07/16/16 16:30 Family History Mother: age 57 cancer brain/lung Father: age 86 natural causes Social History Lives with roommate half pack of cigarettes daily, 4 ppd forty years ago (40 years) Alcohol abuse 6 to 8 [place] daily, last weeks ago Illicit: denies Physical Exam Vital Signs Vital Signs Date Time Temp Pulse Resp B/P Pulse Ox O2 Delivery O2 Flow Rate FiO2 07/16/16 16:33 98.2 102 24 109/56 100 BiPAP 40 07/16/16 16:25 100 40 07/16/16 16:17 90 32 97 Aerosol Mask 2 07/16/16 16:17 100 BiPAP 40 07/16/16 16:17 99.5 101 32 158/67 96 Physical Exam GENERAL: Obese patient in acute respiratory distress. on BiPAP SKIN: warm and dry at this time. HEAD: Atraumatic. Normocephalic. EYES: Pupils equal and round. No scleral icterus. No injection or drainage. ENT: No nasal bleeding or discharge. Mucous membranes pink and moist. NECK: Trachea midline. No JVD. CARDIOVASCULAR: Irregularly irregular, tachycardic RESPIRATORY: Decreased breath sounds bilateral no wheezing or crackles. GASTROINTESTINAL: Abdomen soft, obese, no rebound tenderness. MUSCULOSKELETAL: No obvious deformities. No clubbing. No cyanosis. Edema 3+ NEUROLOGICAL: Awake and alert. No obvious cranial nerve deficits. Motor grossly within normal limits. Normal speech. PSYCHIATRIC: Appropriate mood and affect; insight and judgment normal. Laboratory Laboratory Tests Test 07/16/16 07/16/16 16:18 16:35 Blood Gas Puncture Site I.V. Blood Gas Patient Temperature 98.6 Venous Blood pH 7.30 Venous Blood Partial Pressure 60 CO2 Venous Blood Partial Pressure 70 O2 Venous Blood HCO3 28 Venous Blood Oxygen Saturation 88 Venous Blood Oxygen Content 12.0 Venous Blood Base Excess 2.3 Oxygen Delivery Device BIPAP Blood Gas Ventilator Setting IPAP15/EPAP5 Blood Gas Inspired Oxygen 40 White Blood Count 9.3 Red Blood Count 3.16 Hemoglobin 9.7 Hematocrit 29.0 Mean Corpuscular Volume 91.7 Mean Corpuscular Hemoglobin 30.8 Mean Corpuscular Hemoglobin 33.6 Concent Red Cell Distribution Width 18.1 Platelet Count 239 Mean Platelet Volume 6.8 Neutrophils (%) (Auto) 61.5 Lymphocytes (%) (Auto) 13.6 Monocytes (%) (Auto) 14.2 Eosinophils (%) (Auto) 9.7 Basophils (%) (Auto) 1.0 Neutrophils # (Auto) 5.7 Lymphocytes # (Auto) 1.3 Monocytes # (Auto) 1.3 Eosinophils # (Auto) 0.9 Basophils # (Auto) 0.1 CBC Comment DIFF FINAL Differential Comment Prothrombin Time 11.9 Prothromb Time International 1.1 Ratio Activated Partial 28.8 Thromboplast Time Sodium Level 134 Potassium Level 4.6 Chloride Level 99 Carbon Dioxide Level 28.1 Anion Gap 7 Blood Urea Nitrogen 11 Creatinine 1.04 Estimat Glomerular Filtration 71 Rate Random Glucose 110 Calcium Level 8.7 Magnesium Level 2.1 Total Bilirubin 0.6 Aspartate Amino Transf 32 (AST/SGOT) Alanine Aminotransferase 32 (ALT/SGPT) Alkaline Phosphatase 71 Total Creatine Kinase 83 Troponin I LESS THAN 0.02 B-Type Natriuretic Peptide 104 Total Protein 6.5 Albumin 3.1 Date/Time Procedure Status Source Growth 07/16/16 16:35 Aerobic Blood Culture Received Blood Peripheral Pending 07/16/16 16:35 Anaerobic Blood Culture Received Blood Peripheral Pending Result Diagram: 07/16/16 1635 07/16/16 1635 Imaging Last Impressions Chest X-Ray 07/16/16 1629 Signed Impressions: Service Date/Time: Saturday, July 16, 2016 16:39 - CONCLUSION: No acute disease. Antwan Reeves Jr., MD Assessment and Plan Assessment and Plan 1. Acute on chronic respiratory Failure secondary to COPD exacerbation on BiPAP improving condition. 2. COPD exacerbation Bronchodilator, Mucolytic and incentive spirometry, Cardiac Monitoring, Cardiac enzymes Steroids. BiPAP 3. Tobacco dependence Strongly recommended to stop smoking, continue Nicotine patch. 4. Atrial Fibrillation with RVR. continue Home medicines 5. OA by history 6. Obesity strongly recommended diet and exercise. as outpatient PT eval. 7. Testicular and Lung cancer history. 8. MAGO by history. DVT prophylaxis with Apixaban Code Status Full Code. Discussed Condition With Patient As Always a pleasure to talk about cases receive input and recommendations by Emergency Medicine Specialist Doctor Micky Hoffman, Highly Appreciated. Physician Certification 2 Midnight Certification Type: Admission for Inpatient Services Order for Inpatient Services The services are ordered in accordance with Medicare regulations or non- Medicare payer requirements, as applicable. In the case of services not specified as inpatient-only, they are appropriately provided as inpatient services in accordance with the 2-midnight benchmark. Estimated LOS (days): 3 days is the estimated time the patient will need to remain in the hospital, assuming treatment plan goals are met and no additional complications. Post-Hospital Plan: Not yet determined Mahin Tay MD July 16, 2016 18:20
[2016-07-16] MEDS: SODIUM CHLOR 0.9% 1000 ML INJ 1,000 ML IV SCH (18:30)
[2016-07-16] MEDS: methylPREDNISolone SOD SUCC 40 MG/1 ML VIAL IV PUSH SCH (18:45)
[2016-07-16] MEDS: DOCUSATE SODIUM 100 MG CAP PO SCH (20:00)
[2016-07-16] MEDS: RESP: ALBUTEROL 2.5 MG/IPRATROPIUM 0.5 MG NEB (SCH) NEB ×2 (20:02→23:10)
[2016-07-16] MEDS: RESP: BUDESONIDE 0.5 MG/2 ML NEB NEB SCH (20:02)
[2016-07-16] MEDS: SODIUM CHLORIDE 0.9% FLUSH 10 ML FLUSH IV FLUSH SCH (21:00)
[2016-07-16] MEDS: guaiFENesin E.R. 600 MG TAB PO SCH (21:00)
[2016-07-16] MEDS: APIXABAN 5 MG TABLET PO SCH (21:00)
[2016-07-16 21:24] LABS: BLOOD GAS CARBOXYHEMOGLOBIN 3.2 % (0-4); BLOOD GAS HCO3 28 mmol/L (22-26); BLOOD GAS METHEMOGLOBIN 0.5 % (0-2); BLOOD GAS O2 HGB SATURATION 93 % (90-100); BLOOD GAS OXYGEN CONTENT 13.8 Vol % (12.0-20.0); BLOOD GAS PCO2 77 mmHg (38-42); BLOOD GAS PO2 96 mmHG (61-120); BLOOD GAS TOTAL HGB 10.4 G/DL (12.0-16.0); TEMP CORR TO 98.6
[2016-07-16 21:25] LABS: CRITICAL VALUE YES; DRAW SITE RT RADIAL; FIO2 45 %; NUMBER OF ARTERIAL PUNCTURES 1; OXYGEN DEVICE BiPAP; STAT YES; ULNAR PULSE PRESENT; VENT SETTINGS IPAP15 / EPAP5
[2016-07-16 22:52] LABS: CREATINE KINASE 65 U/L (39-308)
[2016-07-16] MEDS ORDERED: CHLORHEXIDINE GLUCONATE 2 % 1 PACK (2 CLOTHS)(extra cloths) TOPICAL PRN (23:15)
[2016-07-17] VITALS (16 sets, daily range): BP systolic 98–133; BP diastolic 55–79; PULSE 74–125; RESP 18–33; TEMP 98.1–98.7; O2SAT 91–100
[2016-07-17] MEDS: methylPREDNISolone SOD SUCC 40 MG/1 ML VIAL IV PUSH SCH ×4 (00:27→18:00)
[2016-07-17] MEDS: CHLORHEXIDINE GLUCONATE 2 % 1 PACK (2 CLOTHS)(taper/protocol) TOPICAL SCH (01:39)
[2016-07-17] MEDS: RESP: ALBUTEROL 2.5 MG/IPRATROPIUM 0.5 MG NEB (SCH) NEB ×5 (03:45→20:42)
[2016-07-17 06:07] LABS: BLOOD GAS BASE EXCESS 1.2 mmol/L (-2-2); BLOOD GAS CARBOXYHEMOGLOBIN 2.6 % (0-4); BLOOD GAS HCO3 28 mmol/L (22-26); BLOOD GAS METHEMOGLOBIN 1.1 % (0-2); BLOOD GAS O2 HGB SATURATION 94 % (90-100); BLOOD GAS PCO2 67 mmHg (38-42); BLOOD GAS PO2 109 mmHg (61-120); BLOOD GAS TOTAL HGB 10.4 G/DL (12.0-16.0); TEMP CORR TO 98.6
[2016-07-17 06:08] LABS: CRITICAL VALUE YES
[2016-07-17 06:09] LABS: DRAW SITE LT RADIAL; FIO2 35 %; NUMBER OF ARTERIAL PUNCTURES 1; OXYGEN DEVICE BiPAP; STAT NO; ULNAR PULSE PRESENT
[2016-07-17 06:11] LABS: AUTOMATED NEUTROPHIL # 4.5 TH/MM3 (1.8-7.7); BASOPHIL % 0.1 % (0.0-2.0); HEMATOCRIT 32.3 % (39.0-51.0); HEMO FLAGS DIFF FINAL; LYMPH % 3.5 % (9.0-44.0); LYMPHOCYTE # 0.2 TH/MM3 (1.0-4.8); MEAN CELL VOLUME 93.3 FL (80.0-100.0); MEAN CORPUSCULAR HEMOGLOBIN 29.5 PG (27.0-34.0); MEAN CORPUSCULAR HGB CONC 31.7 % (32.0-36.0); MONO % 0.9 % (0.0-8.0); NEUT % 95.5 % (16.0-70.0); PLATELET COUNT 207 TH/MM3 (150-450); RED BLOOD COUNT 3.46 MIL/MM3 (4.50-5.90); RED CELL DISTRIBUTION WIDTH 18.1 % (11.6-17.2); WHITE BLOOD COUNT 4.7 TH/MM3 (4.0-11.0)
[2016-07-17 06:37] LABS: ANION GAP 5 MEQ/L (5-15); BICARBONATE 29.9 MEQ/L (21.0-32.0); BLOOD UREA NITROGEN 15 MG/DL (7-18); CHLORIDE 100 MEQ/L (98-107); CREATINE KINASE 694 U/L (39-308); GLOMERULAR FILTRATION RATE 58 ML/MIN (>89); POTASSIUM 5.5 MEQ/L (3.5-5.1); SODIUM (NA) 135 MEQ/L (136-145)
[2016-07-17 06:59] LABS: CKMB 8.5 NG/ML (0.5-3.6)
[2016-07-17] MEDS: RESP: BUDESONIDE 0.5 MG/2 ML NEB NEB SCH ×2 (07:53→20:42)
--- NOTE | 2016-07-17 08:22 | HHI.PR ---
Subjective Remarks The patient is a 71 year-old male who presents to the emergency department for shortness of breath. The patient states any increasing shortness of breath for the last 2-3 days and subsequently called EMS. EMS states when they arrived the patient was somewhat hypoxic, had an elevated respiratory rate in the 30s, therefore, was placed on DuoNeb's. The patient does have a history of COPD as well as congestive heart failure. The patient has increasing shortness breath or last several days without any chest pain. He does complain of mild orthopnea as well as dyspnea upon exertion. He also complains of edema to lower extremities bilaterally. He denies any known history of pulmonary embolism or DVT. The patient's primary physician is at the [facility]. Symptoms are moderate, progressing, minimally alleviated with DuoNeb's. 07/17: Seen in his bedroom and discussed with nurse Miss Lowe stable, improving condition, will start liquid diet, has in and out Atrial Fibrillation with RVR to sinus rhythm, no nausea, vomit or diarrhea. Objective Vital Signs Date Time Temp Pulse Resp B/P Pulse Ox O2 Delivery O2 Flow Rate FiO2 07/17/16 07:53 97 30 07/17/16 06:48 98 30 07/17/16 04:15 95 35 07/17/16 04:00 94 19 111/56 99 07/17/16 00:00 115 18 121/64 100 07/16/16 23:12 100 45 07/16/16 23:00 99.1 124 24 129/78 100 07/16/16 22:50 96 6.00 50 07/16/16 22:50 96 Venturi Mask 6.00 50 07/16/16 22:31 112 24 137/71 98 07/16/16 21:22 96 35 07/16/16 20:30 109 24 122/76 96 BiPAP 07/16/16 20:06 100 40 07/16/16 19:56 107 24 123/70 96 BiPAP 07/16/16 18:30 113 25 125/68 100 BiPAP 40 07/16/16 16:33 98.2 102 24 109/56 100 BiPAP 40 07/16/16 16:25 100 40 07/16/16 16:17 90 32 97 Aerosol Mask 2 07/16/16 16:17 100 BiPAP 40 07/16/16 16:17 99.5 101 32 158/67 96 I/O 07/16/16 07/16/16 07/16/16 07/17/16 07/17/16 07/17/16 07:00 15:00 23:00 07:00 15:00 23:00 Intake Total 417 ml 371 ml Output Total 600 ml Balance 417 ml -229 ml Intake Oral 60 ml IV Total 417 ml 311 ml Output Urine Total 600 ml Stool Total 0 ml Result Diagram: 07/17/16 0512 07/17/16 0512 Imaging Last Impressions Chest X-Ray 07/16/16 1629 Signed Impressions: Service Date/Time: Saturday, July 16, 2016 16:39 - CONCLUSION: No acute disease. Antwan Reeves Jr., MD Procedures BiPAP Other Results Laboratory Tests Test 07/16/16 07/16/16 07/17/16 07/17/16 16:18 16:35 01:15 05:12 Venous Blood pH 7.30 Venous Blood Partial Pressure 60 mmHg CO2 Venous Blood Partial Pressure 70 mmHg O2 Venous Blood HCO3 28 mmol/L Venous Blood Oxygen Saturation 88 % Venous Blood Oxygen Content 12.0 Vol % Venous Blood Base Excess 2.3 mmol/L Prothrombin Time 11.9 SEC Prothromb Time International 1.1 RATIO Ratio Activated Partial 28.8 SEC Thromboplast Time Magnesium Level 2.1 MG/DL Total Bilirubin 0.6 MG/DL Aspartate Amino Transf 32 U/L (AST/SGOT) Alanine Aminotransferase 32 U/L (ALT/SGPT) Alkaline Phosphatase 71 U/L B-Type Natriuretic Peptide 104 PG/ML Total Protein 6.5 GM/DL Albumin 3.1 GM/DL Nasal Screen MRSA (PCR) MRSA NOT DETECTED White Blood Count 4.7 TH/MM3 Red Blood Count 3.46 MIL/MM3 Hemoglobin 10.2 GM/DL Hematocrit 32.3 % Mean Corpuscular Volume 93.3 FL Mean Corpuscular Hemoglobin 29.5 PG Mean Corpuscular Hemoglobin 31.7 % Concent Red Cell Distribution Width 18.1 % Platelet Count 207 TH/MM3 Mean Platelet Volume 6.9 FL Neutrophils (%) (Auto) 95.5 % Lymphocytes (%) (Auto) 3.5 % Monocytes (%) (Auto) 0.9 % Eosinophils (%) (Auto) 0.0 % Basophils (%) (Auto) 0.1 % Neutrophils # (Auto) 4.5 TH/MM3 Lymphocytes # (Auto) 0.2 TH/MM3 Monocytes # (Auto) 0.0 TH/MM3 Eosinophils # (Auto) 0.0 TH/MM3 Basophils # (Auto) 0.0 TH/MM3 CBC Comment DIFF FINAL Differential Comment Sodium Level 135 MEQ/L Potassium Level 5.5 MEQ/L Chloride Level 100 MEQ/L Carbon Dioxide Level 29.9 MEQ/L Anion Gap 5 MEQ/L Blood Urea Nitrogen 15 MG/DL Creatinine 1.23 MG/DL Estimat Glomerular Filtration 58 ML/MIN Rate Random Glucose 158 MG/DL Calcium Level 8.7 MG/DL Total Creatine Kinase 694 U/L Creatine Kinase MB 8.5 NG/ML Creatine Kinase MB % 1.2 % Troponin I LESS THAN 0.02 NG/ML Test 07/17/16 05:51 Blood Gas Puncture Site LT RADIAL Blood Gas Patient Temperature 98.6 Blood Gas HCO3 28 mmol/L Blood Gas Base Excess 1.2 mmol/L Blood Gas Oxygen Saturation 94 % Arterial Blood pH 7.24 Arterial Blood Partial 67 mmHg Pressure CO2 Arterial Blood Partial 109 mmHg Pressure O2 Arterial Blood Oxygen Content 14.0 Vol % Arterial Blood 2.6 % Carboxyhemoglobin Arterial Blood Methemoglobin 1.1 % Blood Gas Hemoglobin 10.4 G/DL Oxygen Delivery Device BiPAP Blood Gas Ventilator Setting Blood Gas Inspired Oxygen 35 % Objective Remarks GENERAL: Obese patient in acute respiratory distress. on BiPAP SKIN: warm and dry at this time. HEAD: Atraumatic. Normocephalic. EYES: Pupils equal and round. No scleral icterus. No injection or drainage. ENT: No nasal bleeding or discharge. Mucous membranes pink and moist. NECK: Trachea midline. No JVD. CARDIOVASCULAR: regular rate and rhythm. RESPIRATORY: Decreased breath sounds bilateral no wheezing or crackles. GASTROINTESTINAL: Abdomen soft, obese, no rebound tenderness. MUSCULOSKELETAL: No obvious deformities. No clubbing. No cyanosis. Edema 3+ NEUROLOGICAL: Awake and alert. No obvious cranial nerve deficits. Motor grossly within normal limits. Normal speech. PSYCHIATRIC: Appropriate mood and affect; insight and judgment normal. Medications and IVs Current Medications Medications (Trade) Dose Ordered Sig/Elif Route Start Time Stop Time Status Last Admin (Cordarone) 200 mg DAILY PO 07/17/16 09:00 (Eliquis) 5 mg BID PO 07/16/16 21:00 07/16/16 21:00 (Ecotrin Ec) 162 mg DAILY PO 07/17/16 09:00 (Buspar) 5 mg TID PO 07/17/16 09:00 (Cardizem Cd) 360 mg DAILY PO 07/17/16 09:00 (Folate) 1 mg DAILY PO 07/17/16 09:00 (Lasix) 40 mg DAILY PO 07/17/16 09:00 (Prinivil) 10 mg DAILY PO 07/17/16 09:00 (Habitrol 21 Mg Patch.24 Hr) 1 patch DAILY T-DERMAL 07/17/16 09:00 (Protonix) 40 mg DAILY PO 07/17/16 09:00 (Vitamin B1) 100 mg DAILY PO 07/17/16 09:00 Miscellaneous Information 1 1 DAILY T-DERMAL 07/17/16 09:00 (NS 1000 ml Inj) 1,000 ml @ 83 mls/hr Q12H3M IV 07/16/16 18:30 07/16/16 18:30 (NS Flush) 2 ml UNSCH PRN IV FLUSH 07/16/16 18:15 (NS Flush) 2 ml BID IV FLUSH 07/16/16 21:00 07/16/16 21:00 (Tylenol) 650 mg Q4H PRN PO 07/16/16 18:15 (Zofran Inj) 4 mg Q6H PRN IVP 07/16/16 18:15 (Dulcolax Supp) 10 mg DAILY PRN RECTAL 07/16/16 18:15 (Colace) 100 mg Q12H PO 07/16/16 20:00 07/16/16 20:00 (Narcan Inj) 0.4 mg UNSCH PRN IV 07/16/16 18:15 (Mucinex Er) 600 mg BID PO 07/16/16 21:00 (SoluMEDROL INJ) 40 mg Q6HR IV PUSH 07/16/16 18:45 07/17/16 05:29 Miscellaneous Information Patient in critical care unit? Ass... Q361D .XX 07/16/16 23:15 (Chlorhexidine 2% Cloth) 3 pack DAILY@04 TOPICAL 07/17/16 04:00 07/21/16 04:01 07/17/16 01:39 (Chlorhexidine 2% Cloth) 3 pack UNSCH PRN TOPICAL 07/16/16 23:15 07/21/16 23:14 A/P Assessment and Plan 1. Acute on chronic respiratory Failure secondary to COPD exacerbation on BiPAP improving condition. no not using BiPAP. on Nasal cannula. will continue Steroids and titrate as needed. 2. COPD exacerbation Bronchodilator, Mucolytic and incentive spirometry, Cardiac Monitoring, Cardiac enzymes Steroids. on nasal cannula. 3. Tobacco dependence Strongly recommended to stop smoking, continue Nicotine patch. 4. Atrial Fibrillation with RVR. continue Home medicines, added Metoprolol 5 mg IV one dose. 5. OA by history 6. Obesity strongly recommended diet and exercise. as outpatient PT eval. 7. Testicular and Lung cancer history. 8. MAGO by history. DVT prophylaxis with Apixaban Code Status Full Code. Discussed Condition With Patient and nurse Miss Lowe. Discharge Planning Expected in one to two days. Mahin Tay MD July 17, 2016 08:22
[2016-07-17] MEDS ORDERED: SODIUM POLYSTYRENE SULFONATE SUSP 15 GM/60 ML CUP PO ONE (08:30)
[2016-07-17] MEDS ORDERED: predniSONE 20 MG TAB PO SCH (09:00)
[2016-07-17] MEDS: THIAMINE HCL 100 MG TAB PO SCH (09:00)
[2016-07-17] MEDS: REMOVE OLD PATCH T-DERMAL SCH (09:00)
[2016-07-17] MEDS: APIXABAN 5 MG TABLET PO SCH ×2 (09:03→21:07)
[2016-07-17] MEDS: LISINOPRIL 10 MG TAB PO SCH (09:03)
[2016-07-17] MEDS: DILTIAZEM-CD 180 MG CAP ER PO SCH (09:03)
[2016-07-17] MEDS: guaiFENesin E.R. 600 MG TAB PO SCH ×2 (09:03→21:07)
[2016-07-17] MEDS: PANTOPRAZOLE SOD 40 MG DELAYED RELEASE TAB PO SCH (09:04)
[2016-07-17] MEDS: AMIODARONE 200 MG TAB PO SCH (09:04)
[2016-07-17] MEDS: FUROSEMIDE 40 MG TAB PO SCH (09:04)
[2016-07-17] MEDS: ASPIRIN EC 81 MG TABEC PO SCH (09:04)
[2016-07-17] MEDS: SODIUM CHLORIDE 0.9% FLUSH 10 ML FLUSH IV FLUSH SCH ×2 (09:05→21:07)
[2016-07-17] MEDS: DOCUSATE SODIUM 100 MG CAP PO SCH ×2 (09:05→21:07)
[2016-07-17] MEDS: NICOTINE 21 MG/24 HR PATCH T-DERMAL SCH (09:16)
[2016-07-17] MEDS: FOLIC ACID 1 MG TAB PO SCH (09:16)
[2016-07-17] MEDS: SODIUM CHLOR 0.9% 1000 ML INJ 1,000 ML IV SCH ×2 (09:20→19:47)
--- NOTE | 2016-07-17 10:26 | EKG ---
Date Performed: 07/16/2016 Time Performed: 22:18:04 PTAGE: 71 years EKG: ATRIAL FLUTTER/TACHYCARDIA WITH RAPID VENTRICULAR RESPONSE LOW QRS VOLTAGE IN PRECORDIAL LE ADS ABNORMAL RHYTHM ECG NO PREVIOUS TRACING DOCTOR: Olvin Barbosa Interpretating Date/Time 07/17/2016 10:21:57
--- NOTE | 2016-07-17 10:58 | EKG ---
Date Performed: 07/16/2016 Time Performed: 16:26:46 PTAGE: 71 years EKG: ATRIAL FIBRILLATION WITH RAPID VENTRICULAR RESPONSE ABNORMAL RHYTHM ECG NO PREVIOUS TRACING DOCTOR: Olvin Barbosa Interpretating Date/Time 07/17/2016 10:56:41
[2016-07-17] MEDS: busPIRone HCL 5 MG TAB PO SCH ×3 (11:19→18:00)
[2016-07-17] MEDS ORDERED: METOPROLOL TARTRATE 5 MG/5 ML VIAL IV PUSH ONE (14:15)
[2016-07-17] MEDS: INSULIN NovoLIN REGULAR SUPPLEMENTAL SCALE SQ SCH ×2 (15:06→21:00)
[2016-07-18] VITALS (23 sets, daily range): BP systolic 108–133; BP diastolic 54–83; PULSE 76–108; RESP 24–57; TEMP 97.9–98.9; O2SAT 85–99
[2016-07-18] MEDS: RESP: ALBUTEROL 2.5 MG/IPRATROPIUM 0.5 MG NEB (SCH) NEB ×7 (00:18→23:59)
[2016-07-18] MEDS: methylPREDNISolone SOD SUCC 40 MG/1 ML VIAL IV PUSH SCH ×5 (00:55→23:53)
[2016-07-18] MEDS: CHLORHEXIDINE GLUCONATE 2 % 1 PACK (2 CLOTHS)(taper/protocol) TOPICAL SCH ×2 (04:00→23:57)
[2016-07-18] MEDS: SODIUM CHLOR 0.9% 1000 ML INJ 1,000 ML IV SCH (05:25)
[2016-07-18 06:34] LABS: BICARBONATE 32.1 MEQ/L (21.0-32.0); POTASSIUM 4.8 MEQ/L (3.5-5.1)
[2016-07-18] MEDS: RESP: IPRATROPIUM 0.5 MG/2.5 ML NEB NEB PRN (06:55)
[2016-07-18 06:59] LABS: BLOOD GAS BASE EXCESS 2.3 mmol/L (-2-2); BLOOD GAS CARBOXYHEMOGLOBIN 1.8 % (0-4); BLOOD GAS HCO3 28 mmol/L (22-26); BLOOD GAS METHEMOGLOBIN 0.9 % (0-2); BLOOD GAS O2 HGB SATURATION 97 % (90-100); BLOOD GAS OXYGEN CONTENT 13.8 Vol % (12.0-20.0); BLOOD GAS PCO2 59 mmHg (38-42); BLOOD GAS PO2 166 mmHg (61-120); BLOOD GAS TOTAL HGB 9.9 G/DL (12.0-16.0); CRITICAL VALUE YES; TEMP CORR TO 98.6
[2016-07-18 07:00] LABS: DRAW SITE LT RADIAL; LITER FLOW 5 L/M; NUMBER OF ARTERIAL PUNCTURES 1; OXYGEN DEVICE NASAL CANNULA; STAT YES; ULNAR PULSE PRESENT
[2016-07-18] MEDS: INSULIN NovoLIN REGULAR SUPPLEMENTAL SCALE SQ SCH ×4 (07:00→20:26)
[2016-07-18] MEDS: RESP: BUDESONIDE 0.5 MG/2 ML NEB NEB SCH ×2 (07:34→20:21)
[2016-07-18] MEDS: DOCUSATE SODIUM 100 MG CAP PO SCH ×2 (08:34→20:26)
[2016-07-18] MEDS: SODIUM CHLORIDE 0.9% FLUSH 10 ML FLUSH IV FLUSH SCH ×2 (08:35→20:26)
[2016-07-18] MEDS: THIAMINE HCL 100 MG TAB PO SCH (08:36)
[2016-07-18] MEDS: PANTOPRAZOLE SOD 40 MG DELAYED RELEASE TAB PO SCH (08:36)
[2016-07-18] MEDS: APIXABAN 5 MG TABLET PO SCH ×2 (08:36→20:26)
[2016-07-18] MEDS: busPIRone HCL 5 MG TAB PO SCH ×3 (08:37→17:37)
[2016-07-18] MEDS: AMIODARONE 200 MG TAB PO SCH (08:37)
[2016-07-18] MEDS: ASPIRIN EC 81 MG TABEC PO SCH (08:37)
[2016-07-18] MEDS: guaiFENesin E.R. 600 MG TAB PO SCH ×2 (08:37→20:26)
[2016-07-18] MEDS: DILTIAZEM-CD 180 MG CAP ER PO SCH (08:37)
[2016-07-18] MEDS: FOLIC ACID 1 MG TAB PO SCH (08:37)
[2016-07-18] MEDS: LISINOPRIL 10 MG TAB PO SCH (08:37)
[2016-07-18] MEDS: FUROSEMIDE 40 MG TAB PO SCH (08:37)
[2016-07-18] MEDS: NICOTINE 21 MG/24 HR PATCH T-DERMAL SCH (08:38)
[2016-07-18] MEDS: REMOVE OLD PATCH T-DERMAL SCH (08:38)
[2016-07-18] MEDS ORDERED: FUROSEMIDE 40 MG/4 ML VIAL IV PUSH ONE (13:00)
[2016-07-18] MEDS: MORPHINE SULFATE 4 MG/ML INJ IV PUSH PRN (15:19)
--- NOTE | 2016-07-18 17:01 | HHI.PR ---
Subjective Remarks The patient is a 71 year-old male who presents to the emergency department for shortness of breath. The patient states any increasing shortness of breath for the last 2-3 days and subsequently called EMS. EMS states when they arrived the patient was somewhat hypoxic, had an elevated respiratory rate in the 30s, therefore, was placed on DuoNeb's. The patient does have a history of COPD as well as congestive heart failure. The patient has increasing shortness breath or last several days without any chest pain. He does complain of mild orthopnea as well as dyspnea upon exertion. He also complains of edema to lower extremities bilaterally. He denies any known history of pulmonary embolism or DVT. The patient's primary physician is at the [place] [facility]. Symptoms are moderate, progressing, minimally alleviated with DuoNeb's. 07/17: Seen in his bedroom and discussed with nurse Miss Lowe stable, improving condition, will start liquid diet, has in and out Atrial Fibrillation with RVR to sinus rhythm. 07/18: patient stable seen in Intensive Care Unit, discussed with nurse Miss Roach, no nausea, vomit or diarrhea, now eating properly, advanced diet discontinued IV fluids. and has bilateral leg edema, given one dose of Lasix and following renal function in am tomorrow. Objective Vital Signs Date Time Temp Pulse Resp B/P Pulse Ox O2 Delivery O2 Flow Rate FiO2 07/18/16 15:00 88 35 07/18/16 14:00 85 28 117/62 99 07/18/16 13:00 94 30 128/63 98 07/18/16 12:00 98.2 88 30 119/57 99 07/18/16 11:00 104 34 126/60 97 07/18/16 10:00 100 30 133/59 95 07/18/16 09:00 91 27 131/79 98 07/18/16 09:00 91 27 131/79 98 07/18/16 08:01 93 34 108/54 94 07/18/16 08:00 98.2 90 52 96 07/18/16 07:35 98 Nasal Cannula 2.00 07/18/16 06:00 84 07/18/16 05:17 96 30 07/18/16 04:00 76 07/18/16 04:00 98.1 76 26 117/65 98 07/18/16 03:32 99 30 07/18/16 02:00 79 07/18/16 00:35 99 30 07/18/16 00:00 84 07/18/16 00:00 98.2 84 24 112/66 97 07/17/16 22:00 79 07/17/16 20:43 99 30 07/17/16 20:00 90 07/17/16 20:00 98.7 90 28 98/55 100 07/17/16 18:00 87 I/O 07/17/16 07/17/16 07/17/16 07/18/16 07/18/16 07/18/16 07:00 15:00 23:00 07:00 15:00 23:00 Intake Total 371 ml 873 ml 811 ml 603 ml 1245 ml Output Total 600 ml 850 ml 900 ml 250 ml 1350 ml 450 ml Balance -229 ml 23 ml -89 ml 353 ml -105 ml -450 ml Intake Oral 60 ml 300 ml 120 ml 1020 ml IV Total 311 ml 873 ml 511 ml 483 ml 225 ml Output Urine Total 600 ml 850 ml 900 ml 250 ml 1350 ml 450 ml Stool Total 0 ml 0 ml # Bowel Movements 0 1 Result Diagram: 07/17/16 0512 07/18/16 0540 Imaging Last Impressions Chest X-Ray 07/16/16 1629 Signed Impressions: Service Date/Time: Saturday, July 16, 2016 16:39 - CONCLUSION: No acute disease. Antwan Reeves Jr., MD Procedures BiPAP Other Results Laboratory Tests Test 07/16/16 07/16/16 07/17/16 07/17/16 16:18 16:35 01:15 05:12 Venous Blood pH 7.30 Venous Blood Partial Pressure 60 mmHg CO2 Venous Blood Partial Pressure 70 mmHg O2 Venous Blood HCO3 28 mmol/L Venous Blood Oxygen Saturation 88 % Venous Blood Oxygen Content 12.0 Vol % Venous Blood Base Excess 2.3 mmol/L Prothrombin Time 11.9 SEC Prothromb Time International 1.1 RATIO Ratio Activated Partial 28.8 SEC Thromboplast Time Magnesium Level 2.1 MG/DL Total Bilirubin 0.6 MG/DL Aspartate Amino Transf 32 U/L (AST/SGOT) Alanine Aminotransferase 32 U/L (ALT/SGPT) Alkaline Phosphatase 71 U/L B-Type Natriuretic Peptide 104 PG/ML Total Protein 6.5 GM/DL Albumin 3.1 GM/DL Nasal Screen MRSA (PCR) MRSA NOT DETECTED White Blood Count 4.7 TH/MM3 Red Blood Count 3.46 MIL/MM3 Hemoglobin 10.2 GM/DL Hematocrit 32.3 % Mean Corpuscular Volume 93.3 FL Mean Corpuscular Hemoglobin 29.5 PG Mean Corpuscular Hemoglobin 31.7 % Concent Red Cell Distribution Width 18.1 % Platelet Count 207 TH/MM3 Mean Platelet Volume 6.9 FL Neutrophils (%) (Auto) 95.5 % Lymphocytes (%) (Auto) 3.5 % Monocytes (%) (Auto) 0.9 % Eosinophils (%) (Auto) 0.0 % Basophils (%) (Auto) 0.1 % Neutrophils # (Auto) 4.5 TH/MM3 Lymphocytes # (Auto) 0.2 TH/MM3 Monocytes # (Auto) 0.0 TH/MM3 Eosinophils # (Auto) 0.0 TH/MM3 Basophils # (Auto) 0.0 TH/MM3 CBC Comment DIFF FINAL Differential Comment Total Creatine Kinase 694 U/L Creatine Kinase MB 8.5 NG/ML Creatine Kinase MB % 1.2 % Troponin I LESS THAN 0.02 NG/ML Test 07/17/16 07/18/16 07/18/16 05:51 05:40 06:48 Blood Gas Ventilator Setting Blood Gas Inspired Oxygen 35 % Sodium Level 134 MEQ/L Potassium Level 4.8 MEQ/L Chloride Level 99 MEQ/L Carbon Dioxide Level 32.1 MEQ/L Anion Gap 3 MEQ/L Blood Urea Nitrogen 23 MG/DL Creatinine 1.21 MG/DL Estimat Glomerular Filtration 59 ML/MIN Rate Random Glucose 137 MG/DL Calcium Level 9.1 MG/DL Blood Gas Puncture Site LT RADIAL Blood Gas Patient Temperature 98.6 Blood Gas HCO3 28 mmol/L Blood Gas Base Excess 2.3 mmol/L Blood Gas Oxygen Saturation 97 % Arterial Blood pH 7.30 Arterial Blood Partial 59 mmHg Pressure CO2 Arterial Blood Partial 166 mmHg Pressure O2 Arterial Blood Oxygen Content 13.8 Vol % Arterial Blood 1.8 % Carboxyhemoglobin Arterial Blood Methemoglobin 0.9 % Blood Gas Hemoglobin 9.9 G/DL Oxygen Delivery Device NASAL CANNULA Blood Gas Liter Flow 5 L/M Objective Remarks GENERAL: Obese patient in acute respiratory distress. on BiPAP SKIN: warm and dry at this time. HEAD: Atraumatic. Normocephalic. EYES: Pupils equal and round. No scleral icterus. No injection or drainage. ENT: No nasal bleeding or discharge. Mucous membranes pink and moist. NECK: Trachea midline. No JVD. CARDIOVASCULAR: regular rate and rhythm. RESPIRATORY: Decreased breath sounds bilateral no wheezing or crackles. GASTROINTESTINAL: Abdomen soft, obese, no rebound tenderness. MUSCULOSKELETAL: No obvious deformities. No clubbing. No cyanosis. Edema 3+ NEUROLOGICAL: Awake and alert. No obvious cranial nerve deficits. Motor grossly within normal limits. Normal speech. PSYCHIATRIC: Appropriate mood and affect; insight and judgment normal. Medications and IVs Current Medications Medications (Trade) Dose Ordered Sig/Elif Route Start Time Stop Time Status Last Admin (Cordarone) 200 mg DAILY PO 07/17/16 09:00 07/18/16 08:37 (Eliquis) 5 mg BID PO 07/16/16 21:00 07/18/16 08:36 (Ecotrin Ec) 162 mg DAILY PO 07/17/16 09:00 07/18/16 08:37 (Buspar) 5 mg TID PO 07/17/16 09:00 07/18/16 13:23 (Cardizem Cd) 360 mg DAILY PO 07/17/16 09:00 07/18/16 08:37 (Folate) 1 mg DAILY PO 07/17/16 09:00 07/18/16 08:37 (Lasix) 40 mg DAILY PO 07/17/16 09:00 07/18/16 08:37 (Prinivil) 10 mg DAILY PO 07/17/16 09:00 07/18/16 08:37 (Habitrol 21 Mg Patch.24 Hr) 1 patch DAILY T-DERMAL 07/17/16 09:00 07/18/16 08:38 (Protonix) 40 mg DAILY PO 07/17/16 09:00 07/18/16 08:36 (Vitamin B1) 100 mg DAILY PO 07/17/16 09:00 07/18/16 08:36 Miscellaneous Information 1 DAILY T-DERMAL 07/17/16 09:00 07/18/16 08:38 (NS Flush) 2 ml UNSCH PRN IV FLUSH 07/16/16 18:15 (NS Flush) 2 ml BID IV FLUSH 07/16/16 21:00 07/18/16 08:35 (Tylenol) 650 mg Q4H PRN PO 07/16/16 18:15 (Zofran Inj) 4 mg Q6H PRN IVP 07/16/16 18:15 (Dulcolax Supp) 10 mg DAILY PRN RECTAL 07/16/16 18:15 (Colace) 100 mg Q12H PO 07/16/16 20:00 07/18/16 08:34 (Narcan Inj) 0.4 mg UNSCH PRN IV 07/16/16 18:15 (Mucinex Er) 600 mg BID PO 07/16/16 21:00 07/18/16 08:37 (SoluMEDROL INJ) 40 mg Q6HR IV PUSH 07/16/16 18:45 07/18/16 10:53 Miscellaneous Information Patient in critical care unit? Ass... Q361D .XX 07/16/16 23:15 (Chlorhexidine 2% Cloth) 3 pack DAILY@04 TOPICAL 07/17/16 04:00 07/21/16 04:01 07/18/16 04:00 (Chlorhexidine 2% Cloth) 3 pack UNSCH PRN TOPICAL 07/16/16 23:15 07/21/16 23:14 (Morphine Inj) 1 mg Q4H PRN IV PUSH 07/18/16 14:45 07/18/16 15:19 A/P Assessment and Plan 1. Acute on chronic respiratory Failure secondary to COPD exacerbation on BiPAP improving condition. no not using BiPAP. on Nasal cannula. will continue Steroids and titrate as needed. the patient states he continue symptomatic. 2. COPD exacerbation Bronchodilator, Mucolytic and incentive spirometry, Cardiac Monitoring, Cardiac enzymes Steroids. on nasal cannula. 3. Tobacco dependence Strongly recommended to stop smoking, continue Nicotine patch. 4. Atrial Fibrillation with RVR. continue Home medicines, added Metoprolol 5 mg IV one dose. added Metoprolol 5. OA by history 6. Obesity strongly recommended diet and exercise. as outpatient PT eval. 7. Testicular and Lung cancer history. 8. MAGO by history. DVT prophylaxis with Apixaban Code Status Full Code. Discussed Condition With Patient and nurse Miss Roach all questions answered to the best of my abilities. Discharge Planning Expected in one to two days. Mahin Tay MD July 18, 2016 17:01
[2016-07-18] MEDS ORDERED: METOPROLOL TARTRATE 5 MG/5 ML VIAL IV PUSH ONE ×2 (17:30→18:30)
[2016-07-18] MEDS ORDERED: PILL SPLITTER OTHER PRN (18:00)
[2016-07-19] VITALS (15 sets, daily range): BP systolic 113–128; BP diastolic 58–75; PULSE 80–98; RESP 20–33; TEMP 97.9–98.6; O2SAT 92–100
[2016-07-19] MEDS: RESP: ALBUTEROL 2.5 MG/IPRATROPIUM 0.5 MG NEB (SCH) NEB ×5 (03:50→19:48)
[2016-07-19] MEDS: methylPREDNISolone SOD SUCC 40 MG/1 ML VIAL IV PUSH SCH ×4 (05:25→23:10)
[2016-07-19] MEDS: INSULIN NovoLIN REGULAR SUPPLEMENTAL SCALE SQ SCH ×4 (06:12→21:00)
[2016-07-19 07:24] LABS: BICARBONATE 32.2 MEQ/L (21.0-32.0); MAGNESIUM 2.3 MG/DL (1.5-2.5); POTASSIUM 4.5 MEQ/L (3.5-5.1)
[2016-07-19 07:41] LABS: CKMB 6.3 NG/ML (0.5-3.6)
[2016-07-19] MEDS: RESP: BUDESONIDE 0.5 MG/2 ML NEB NEB SCH ×2 (07:55→19:48)
[2016-07-19] MEDS: REMOVE OLD PATCH T-DERMAL SCH (09:00)
[2016-07-19] MEDS: SODIUM CHLORIDE 0.9% FLUSH 10 ML FLUSH IV FLUSH SCH ×2 (09:00→21:08)
[2016-07-19] MEDS: ASPIRIN EC 81 MG TABEC PO SCH (09:36)
[2016-07-19] MEDS: DOCUSATE SODIUM 100 MG CAP PO SCH ×2 (09:36→21:07)
[2016-07-19] MEDS: AMIODARONE 200 MG TAB PO SCH (09:36)
[2016-07-19] MEDS: PANTOPRAZOLE SOD 40 MG DELAYED RELEASE TAB PO SCH (09:36)
[2016-07-19] MEDS: busPIRone HCL 5 MG TAB PO SCH ×3 (09:36→18:46)
[2016-07-19] MEDS: THIAMINE HCL 100 MG TAB PO SCH (09:36)
[2016-07-19] MEDS: DILTIAZEM-CD 180 MG CAP ER PO SCH (09:36)
[2016-07-19] MEDS: guaiFENesin E.R. 600 MG TAB PO SCH ×2 (09:36→21:08)
[2016-07-19] MEDS: FUROSEMIDE 40 MG TAB PO SCH (09:36)
[2016-07-19] MEDS: FOLIC ACID 1 MG TAB PO SCH (09:36)
[2016-07-19] MEDS: NICOTINE 21 MG/24 HR PATCH T-DERMAL SCH (09:37)
[2016-07-19] MEDS: APIXABAN 5 MG TABLET PO SCH ×2 (09:37→21:08)
[2016-07-19] MEDS: LISINOPRIL 10 MG TAB PO SCH (09:37)
--- NOTE | 2016-07-19 12:14 | HHI.PR ---
Subjective Remarks The patient is a 71 year-old male who presents to the emergency department for shortness of breath. The patient states any increasing shortness of breath for the last 2-3 days and subsequently called EMS. EMS states when they arrived the patient was somewhat hypoxic, had an elevated respiratory rate in the 30s, therefore, was placed on DuoNeb's. The patient does have a history of COPD as well as congestive heart failure. The patient has increasing shortness breath or last several days without any chest pain. He does complain of mild orthopnea as well as dyspnea upon exertion. He also complains of edema to lower extremities bilaterally. He denies any known history of pulmonary embolism or DVT. The patient's primary physician is at the [place] [facility]. Symptoms are moderate, progressing, minimally alleviated with DuoNeb's. 07/17: Seen in his bedroom and discussed with nurse Miss Lowe stable, improving condition, will start liquid diet, has in and out Atrial Fibrillation with RVR to sinus rhythm. 07/18: patient stable seen in Intensive Care Unit, now eating properly, advanced diet discontinued IV fluids. and has bilateral leg edema, given one dose of Lasix and following renal function. 07/19: Seen in his bedroom, no Nausea, vomit or diarrhea, continue coughing and shortness of breath, again in Atrial Fibrillation with RVR asked for underwriting specialist and admissions specialist. Objective Vital Signs Date Time Temp Pulse Resp B/P Pulse Ox O2 Delivery O2 Flow Rate FiO2 07/19/16 10:00 95 07/19/16 08:00 92 07/19/16 08:00 97.9 94 20 124/58 100 07/19/16 07:56 94 Nasal Cannula 2.00 07/19/16 06:00 85 07/19/16 04:00 97 07/19/16 04:00 97.9 91 23 113/65 98 07/19/16 02:00 81 07/19/16 00:00 98.0 88 25 122/66 92 07/19/16 00:00 88 07/18/16 22:00 92 07/18/16 20:21 99 Nasal Cannula 2.00 07/18/16 20:00 88 07/18/16 20:00 97.9 88 37 117/83 88 07/18/16 17:00 108 34 85 07/18/16 16:01 98 57 119/57 07/18/16 16:00 98.9 90 30 07/18/16 15:00 88 35 07/18/16 14:00 85 28 117/62 99 07/18/16 13:00 94 30 128/63 98 I/O 07/18/16 07/18/16 07/18/16 07/19/16 07/19/16 07/19/16 07:00 15:00 23:00 07:00 15:00 23:00 Intake Total 603 ml 1245 ml 480 ml 240 ml Output Total 250 ml 1350 ml 670 ml 550 ml Balance 353 ml -105 ml -190 ml -310 ml Intake Oral 120 ml 1020 ml 480 ml 240 ml IV Total 483 ml 225 ml 0 ml 0 ml Output Urine Total 250 ml 1350 ml 670 ml 550 ml # Bowel Movements 1 0 0 Result Diagram: 07/17/16 0512 07/19/16 0523 Imaging Last Impressions Chest X-Ray 07/16/16 1629 Signed Impressions: Service Date/Time: Saturday, July 16, 2016 16:39 - CONCLUSION: No acute disease. Antwan Reeves Jr., MD Procedures BiPAP Other Results Laboratory Tests Test 07/16/16 07/16/16 07/17/16 07/17/16 16:18 16:35 01:15 05:12 Venous Blood pH 7.30 Venous Blood Partial Pressure 60 mmHg CO2 Venous Blood Partial Pressure 70 mmHg O2 Venous Blood HCO3 28 mmol/L Venous Blood Oxygen Saturation 88 % Venous Blood Oxygen Content 12.0 Vol % Venous Blood Base Excess 2.3 mmol/L Prothrombin Time 11.9 SEC Prothromb Time International 1.1 RATIO Ratio Activated Partial 28.8 SEC Thromboplast Time Total Bilirubin 0.6 MG/DL Aspartate Amino Transf 32 U/L (AST/SGOT) Alanine Aminotransferase 32 U/L (ALT/SGPT) Alkaline Phosphatase 71 U/L B-Type Natriuretic Peptide 104 PG/ML Total Protein 6.5 GM/DL Albumin 3.1 GM/DL Nasal Screen MRSA (PCR) MRSA NOT DETECTED White Blood Count 4.7 TH/MM3 Red Blood Count 3.46 MIL/MM3 Hemoglobin 10.2 GM/DL Hematocrit 32.3 % Mean Corpuscular Volume 93.3 FL Mean Corpuscular Hemoglobin 29.5 PG Mean Corpuscular Hemoglobin 31.7 % Concent Red Cell Distribution Width 18.1 % Platelet Count 207 TH/MM3 Mean Platelet Volume 6.9 FL Neutrophils (%) (Auto) 95.5 % Lymphocytes (%) (Auto) 3.5 % Monocytes (%) (Auto) 0.9 % Eosinophils (%) (Auto) 0.0 % Basophils (%) (Auto) 0.1 % Neutrophils # (Auto) 4.5 TH/MM3 Lymphocytes # (Auto) 0.2 TH/MM3 Monocytes # (Auto) 0.0 TH/MM3 Eosinophils # (Auto) 0.0 TH/MM3 Basophils # (Auto) 0.0 TH/MM3 CBC Comment DIFF FINAL Differential Comment Troponin I LESS THAN 0.02 NG/ML Test 07/17/16 07/18/16 07/19/16 05:51 06:48 05:23 Blood Gas Ventilator Setting Blood Gas Inspired Oxygen 35 % Blood Gas Puncture Site LT RADIAL Blood Gas Patient Temperature 98.6 Blood Gas HCO3 28 mmol/L Blood Gas Base Excess 2.3 mmol/L Blood Gas Oxygen Saturation 97 % Arterial Blood pH 7.30 Arterial Blood Partial 59 mmHg Pressure CO2 Arterial Blood Partial 166 mmHg Pressure O2 Arterial Blood Oxygen Content 13.8 Vol % Arterial Blood 1.8 % Carboxyhemoglobin Arterial Blood Methemoglobin 0.9 % Blood Gas Hemoglobin 9.9 G/DL Oxygen Delivery Device NASAL CANNULA Blood Gas Liter Flow 5 L/M Sodium Level 137 MEQ/L Potassium Level 4.5 MEQ/L Chloride Level 98 MEQ/L Carbon Dioxide Level 32.2 MEQ/L Anion Gap 7 MEQ/L Blood Urea Nitrogen 29 MG/DL Creatinine 1.12 MG/DL Estimat Glomerular Filtration 65 ML/MIN Rate Random Glucose 143 MG/DL Calcium Level 8.8 MG/DL Phosphorus Level 3.1 MG/DL Magnesium Level 2.3 MG/DL Total Creatine Kinase 503 U/L Creatine Kinase MB 6.3 NG/ML Creatine Kinase MB % 1.3 % Objective Remarks GENERAL: Obese patient in acute respiratory distress. on BiPAP SKIN: warm and dry at this time. HEAD: Atraumatic. Normocephalic. EYES: Pupils equal and round. No scleral icterus. No injection or drainage. ENT: No nasal bleeding or discharge. Mucous membranes pink and moist. NECK: Trachea midline. No JVD. CARDIOVASCULAR: Irregular rate and rhythm. RESPIRATORY: Decreased breath sounds bilateral no wheezing or crackles. GASTROINTESTINAL: Abdomen soft, obese, no rebound tenderness. MUSCULOSKELETAL: No obvious deformities. No clubbing. No cyanosis. Edema 3+ NEUROLOGICAL: Awake and alert. No obvious cranial nerve deficits. Motor grossly within normal limits. Normal speech. PSYCHIATRIC: Appropriate mood and affect; insight and judgment normal. Medications and IVs Current Medications Medications (Trade) Dose Ordered Sig/Elif Route Start Time Stop Time Status Last Admin (Cordarone) 200 mg DAILY PO 07/17/16 09:00 07/19/16 09:36 (Eliquis) 5 mg BID PO 07/16/16 21:00 07/19/16 09:37 (Ecotrin Ec) 162 mg DAILY PO 07/17/16 09:00 07/19/16 09:36 (Buspar) 5 mg TID PO 07/17/16 09:00 07/19/16 09:36 (Cardizem Cd) 360 mg DAILY PO 07/17/16 09:00 07/19/16 09:36 (Folate) 1 mg DAILY PO 07/17/16 09:00 07/19/16 09:36 (Lasix) 40 mg DAILY PO 07/17/16 09:00 07/19/16 09:36 (Prinivil) 10 mg DAILY PO 07/17/16 09:00 07/19/16 09:37 (Habitrol 21 Mg Patch.24 Hr) 1 patch DAILY T-DERMAL 07/17/16 09:00 07/19/16 09:37 (Protonix) 40 mg DAILY PO 07/17/16 09:00 07/19/16 09:36 (Vitamin B1) 100 mg DAILY PO 07/17/16 09:00 07/19/16 09:36 Miscellaneous Information 1 DAILY T-DERMAL 07/17/16 09:00 07/19/16 09:00 (NS Flush) 2 ml UNSCH PRN IV FLUSH 07/16/16 18:15 (NS Flush) 2 ml BID IV FLUSH 07/16/16 21:00 07/19/16 09:00 (Tylenol) 650 mg Q4H PRN PO 07/16/16 18:15 (Zofran Inj) 4 mg Q6H PRN IVP 07/16/16 18:15 (Dulcolax Supp) 10 mg DAILY PRN RECTAL 07/16/16 18:15 (Colace) 100 mg Q12H PO 07/16/16 20:00 07/19/16 09:36 (Narcan Inj) 0.4 mg UNSCH PRN IV 07/16/16 18:15 (Mucinex Er) 600 mg BID PO 07/16/16 21:00 07/19/16 09:36 (SoluMEDROL INJ) 40 mg Q6HR IV PUSH 07/16/16 18:45 07/19/16 11:55 Miscellaneous Information Patient in critical care unit? Ass... [id number] .XX 07/16/16 23:15 (Chlorhexidine 2% Cloth) 3 pack DAILY@04 TOPICAL 07/17/16 04:00 07/21/16 04:01 07/18/16 23:57 (Chlorhexidine 2% Cloth) 3 pack UNSCH PRN TOPICAL 07/16/16 23:15 07/21/16 23:14 (Morphine Inj) 1 mg Q4H PRN IV PUSH 07/18/16 14:45 07/18/16 15:19 (Toprol Xl) 12.5 mg DAILY PO 07/19/16 18:00 (Pill Splitter) 1 ea UNSCH PRN OTHER 07/18/16 18:00 A/P Assessment and Plan 1. Acute on chronic respiratory Failure, has chronic Respiratory acidosis and Metabolic Alkalosis, secondary to COPD exacerbation was on BiPAP PRN, on Nasal cannula. will continue Steroids and titrate as needed. the patient states he continue symptomatic. asked for admissions specialist consult just was hospitalized in this facility and seen by Doctor Arash Willson 2. COPD exacerbation Bronchodilator, Mucolytic and incentive spirometry, Cardiac Monitoring, Cardiac enzymes Steroids. on nasal cannula. asked for admissions specialist. 3. Tobacco dependence Strongly recommended to stop smoking, continue Nicotine patch. 4. Atrial Fibrillation with RVR. continue Home medicines, added Metoprolol 5 mg IV one dose. added Metoprolol but today not on Sinus rhythm again in Atrial Fibrillation asked for underwriting specialist. 5. OA by history 6. Obesity strongly recommended diet and exercise. as outpatient PT eval. 7. Testicular and Lung cancer history. 8. MAGO by history. DVT prophylaxis with Apixaban Code Status Full Code. Discussed Condition With Patient all questions answered to the best of my abilities. Discharge Planning Once cleared by specialists. Mahin Tay MD July 19, 2016 12:14
--- NOTE | 2016-07-19 17:14 | MB ---
cc: MINNIE AMIN MD DATE OF CONSULTATION 07/19/16 REASON FOR CONSULTATION Atrial fibrillation. HISTORY OF PRESENT ILLNESS A 71-year-old male with past medical history significant for hepatitis C, testicular cancer, COPD, hypertension, diabetes, paroxysmal atrial flutter on chronic oral anticoagulation and smoker admitted to the hospital with shortness of breath in the setting of a COPD exacerbation. He has been admitted to the intensive care unit for further management and evaluation. Shortness of breath has been improved on DuoNebs and COPD management. Cardiology has been consulted because of atrial fibrillation. REVIEW OF SYSTEMS Negative except for what is mentioned in HPI. PAST MEDICAL HISTORY 1. Hepatitis C 2. 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 Status post removal of his right testicle as well as right lower lobe lobectomy, radiation therapy and chemotherapy about 12 years ago, 4. COPD, 5. Hypertension, 6. Diet-controlled diabetes, 7. Paroxysmal atrial fibrillation. MEDICATIONS Cardiac home medications 1. Eliquis 5 mg p.o. b.i.d. 2. Amiodarone 200 mg p.o. daily, 3. Aspirin 81 mg p.o. daily 4. Diltiazem CD 360 mg p.o. daily, 5. Lisinopril 10 mg p.o. daily. ALLERGIES NO KNOWN DRUG ALLERGIES. FAMILY HISTORY Noncontributory. SOCIAL HISTORY The patient smokes half-a-pack of cigarettes per day. He drinks fair amount of alcohol on a daily basis. PHYSICAL EXAMINATION VITAL SIGNS: Temperature 98, respiratory rate 20, heart rate 95, blood pressure 119/69, O2 sat 94% 2L NC. GENERAL: He is awake, alert, oriented x3 in no acute distress. NECK: No carotid bruits. HEART: Irregularly irregular, no murmurs, rubs or gallops. ABDOMEN: Soft, nontender, nondistended. Positive bowel sounds. Obese. EXTREMITIES: No cyanosis, no clubbing. There is a mild edema. CARDIOLOGY STUDIES EKG and telemetry shows atrial fibrillation/atrial flutter with nonspecific ST changes and adequate ventricular response. LABORATORY DATA CBC - hemoglobin 10, hematocrit 32, platelet count 181, INR 1.1. Chemistries - sodium 137, potassium 4.5, BUN 29, creatinine 1.12. Troponin less than 0.02 x3. BNP 104. ASSESSMENT/PLAN 71-year-old man admitted with COPD exacerbation. He remains hemodynamically stable with no cardiovascular complaints and improving from respiratory standpoint. He has known history of atrial flutter/atrial fibrillation. He is on chronic Eliquis as well as on Cardizem and amiodarone at home. At this time, he remains with atrial flutter with a controlled heart rate on a high dose of Cardizem p.o. and amiodarone. There is no definite evidence of acute coronary syndrome. EKG shows nonspecific T-wave changes. Cardiac enzymes have been negative. Echocardiogram done at last admission showed normal LV systolic function. There is no definite evidence of congestive heart failure. RECOMMENDATIONS 1. Continue Cardizem 360 mg p.o. daily. 2. Continue Eliquis. 3. Continue amiodarone 200 mg p.o. daily. Thank you for the opportunity to participate in the care of this patient. We will be available on a p.r.n. basis for any other question or concern. MD MARY JANE Morrison/SA /4:01 PM /4:58 PM GABRIEL
[2016-07-19] MEDS: METOPROLOL SUCCINATE 25 MG EXTENDED RELEASE TAB PO SCH (18:49)
[2016-07-20] VITALS (18 sets, daily range): BP systolic 98–126; BP diastolic 45–69; PULSE 78–92; RESP 19–32; TEMP 97.7–98.2; O2SAT 96–100
[2016-07-20] MEDS: CHLORHEXIDINE GLUCONATE 2 % 1 PACK (2 CLOTHS)(taper/protocol) TOPICAL SCH (03:08)
[2016-07-20] MEDS: RESP: ALBUTEROL 2.5 MG/IPRATROPIUM 0.5 MG NEB (SCH) NEB ×6 (03:30→19:43)
[2016-07-20] MEDS: methylPREDNISolone SOD SUCC 40 MG/1 ML VIAL IV PUSH SCH ×3 (05:00→18:19)
[2016-07-20] MEDS: INSULIN NovoLIN REGULAR SUPPLEMENTAL SCALE SQ SCH ×4 (06:00→20:13)
[2016-07-20] MEDS: DOCUSATE SODIUM 100 MG CAP PO SCH ×2 (08:00→19:55)
[2016-07-20] MEDS: DILTIAZEM-CD 180 MG CAP ER PO SCH (08:19)
[2016-07-20] MEDS: busPIRone HCL 5 MG TAB PO SCH ×3 (08:19→18:18)
[2016-07-20] MEDS: guaiFENesin E.R. 600 MG TAB PO SCH ×2 (08:19→20:03)
[2016-07-20] MEDS: LEVOFLOXACIN 500 MG TAB PO SCH (08:19)
[2016-07-20] MEDS: ASPIRIN EC 81 MG TABEC PO SCH (08:20)
[2016-07-20] MEDS: METOPROLOL SUCCINATE 25 MG EXTENDED RELEASE TAB PO SCH (08:20)
[2016-07-20] MEDS: FUROSEMIDE 40 MG TAB PO SCH (08:20)
[2016-07-20] MEDS: LISINOPRIL 10 MG TAB PO SCH (08:20)
[2016-07-20] MEDS: NICOTINE 21 MG/24 HR PATCH T-DERMAL SCH (08:21)
[2016-07-20] MEDS: RESP: BUDESONIDE 0.5 MG/2 ML NEB NEB SCH ×2 (08:38→19:43)
--- NOTE | 2016-07-20 08:52 | MB ---
cc: JOAQUÍN WARE Dr. Gao DATE OF CONSULTATION: 07/19/2016 REASON FOR CONSULTATION: Respiratory distress with COPD. HISTORY OF PRESENT ILLNESS This is a 71-year-old white male who was admitted through the emergency room with progressive shortness of breath, wheezing, chest congestion and hypoxia. The patient has a history of COPD. He has previously been treated for exacerbation of bronchitis and apparently was seen in the ER where he was in severe respiratory distress and thus placed on a BiPap mask briefly and then switched to a nasal cannula at 4 liters. He has been coughing up little whitish mucus and also was in congestive heart failure and was orthopneic and has complained of leg edema. The patient was given diuretics, nebulized bronchodilators and has been on amiodarone. The chest x-ray upon admission to the ER showed no active infiltrates but had some crowding of the bronchovascular markings. He has had no nausea, vomiting, and no abdominal pain. PAST HISTORY 1. Has included hypertension. 2. History of COPD 3. History of obstructive sleep apnea 4. Atrial fibrillation 5. Hepatitis. PAST SURGICAL HISTORY: 1. He has had previous history for testicular surgery for carcinoma. 2. Right lower lobectomy for [id number] lung cancer. 3. Has had the surgery on his liver. ALLERGIES None listed. MEDICATIONS: 1. Amiodarone 200 mg daily 2. Cardizem 360 mg p.o. daily. 3. Eliquis 5 mg b.i.d. 4. DuoNeb q.i.d. 5. Oxygen 2 liters 6. Symbicort 160 two puffs b.i.d. 7. Recently on Zithromax. 8. Lasix 40 mg a day. 9. Prednisone 20 mg b.i.d. 10. Spiriva one capsule a day. 11. Multivitamins 12. Lisinopril 10 mg daily. FAMILY HISTORY Noncontributory. Please mention mother had a history of lung cancer. HABITS The patient smoked half to one-pack per day and has done so for 40 years. Alcohol use daily and on regular basis. REVIEW OF SYSTEMS The patient is overweight and trouble ambulating he has headaches and blackouts. He has wheezing, epigastric distress. He has urinary frequency, no hematuria. No leg or calf muscle pains but has some joint pains in his extremities. PHYSICAL EXAMINATION IN GENERAL: This elderly averagely built white male who is pale and dyspneic. VITAL SIGNS: Blood pressure 110/60, pulse 105, respirations 22, temperature 98.2. HEAD, EYES, EARS, NOSE, AND THROAT: Head normocephalic. Pupils reactive and equal. Tongue is moist. Nasal no mucosae masses. Throat is injected. NECK: Supple. No bruits or thyroid enlargement or lymphadenopathy. CHEST: Equal movements with distant breath sounds with wheezes throughout both lung chen. Prolonged expirations. HEART: The heart sounds are irregular S1-S2. No murmur, no S3. ABDOMEN: The abdomen is soft, benign. No masses or organomegaly or tenderness. Bowel sounds are active. EXTREMITIES: Mild varicosities decreased peripheral pulses. Reflexes are brisk with no gross motor deficits. NEUROLOGIC: Cranial nerves grossly intact. RECTUM: Rectal examination is deferred. SKIN: No lesions observed. IMPRESSION 1. He has acute on chronic respiratory failure. 2. 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 Anemia of chronic disease. 4. Atrial fibrillation and mild congestive heart failure. 5. Exogenous obesity and obstructive sleep apnea. 6. History of lung cancer status post right lower lobectomy. PLAN The patient has been placed on a BiPap mask 15 over five and 30% FIO2, nebulized DuoNeb solution added q.i.d. Solu-Medrol 40 mg IV q.6 h and he will he was advised to quit cigarette smoking as well as lose weight. The patient will be maintained on nebulized albuterol/Atrovent solution four times a day as well as Symbicort 160 x 4.5, 2 puffs twice a day. Chest x-ray to be repeated. The patient will also be placed on O2 at 4 liters and Xanax added 0.25 mg q.4 h p.r.n. for anxiety attacks, Levaquin 500 mg p.o. daily was added as well. Thank you Dr. Gao for this consultation MD ALO Olguin/jj /11:30 PM /8:29 AM
[2016-07-20] MEDS: PANTOPRAZOLE SOD 40 MG DELAYED RELEASE TAB PO SCH (09:00)
[2016-07-20] MEDS: APIXABAN 5 MG TABLET PO SCH ×2 (09:00→20:03)
[2016-07-20] MEDS: FOLIC ACID 1 MG TAB PO SCH (09:00)
[2016-07-20] MEDS: THIAMINE HCL 100 MG TAB PO SCH (09:00)
[2016-07-20] MEDS: AMIODARONE 200 MG TAB PO SCH (09:00)
[2016-07-20] MEDS: REMOVE OLD PATCH T-DERMAL SCH (09:00)
[2016-07-20] MEDS: SODIUM CHLORIDE 0.9% FLUSH 10 ML FLUSH IV FLUSH SCH ×2 (10:54→20:03)
--- NOTE | 2016-07-20 13:08 | HHI.PR ---
Subjective Remarks The patient is a 71 year-old male who presents to the emergency department for shortness of breath. The patient states any increasing shortness of breath for the last 2-3 days and subsequently called EMS. EMS states when they arrived the patient was somewhat hypoxic, had an elevated respiratory rate in the 30s, therefore, was placed on DuoNeb's. The patient does have a history of COPD as well as congestive heart failure. The patient has increasing shortness breath or last several days without any chest pain. He does complain of mild orthopnea as well as dyspnea upon exertion. He also complains of edema to lower extremities bilaterally. He denies any known history of pulmonary embolism or DVT. The patient's primary physician is at the [facility]. Symptoms are moderate, progressing, minimally alleviated with DuoNeb's. 07/17: Seen in his bedroom and discussed with nurse Miss Lowe stable, improving condition, will start liquid diet, has in and out Atrial Fibrillation with RVR to sinus rhythm. 07/18: patient stable seen in Intensive Care Unit, now eating properly, advanced diet discontinued IV fluids. and has bilateral leg edema, given one dose of Lasix and following renal function. 07/19: Again in Atrial Fibrillation with RVR, asked for direct marketing specialist and card services specialist. 07/10: Seen in her bedroom in the presence of Nurse Miss Almonte, continue with Shortness of breath, continue with Atrial Fibrillation with controlled rate now. No nausea, vomit or diarrhea. Objective Vital Signs Date Time Temp Pulse Resp B/P Pulse Ox O2 Delivery O2 Flow Rate FiO2 07/20/16 10:00 88 07/20/16 08:38 100 Nasal Cannula 3.00 07/20/16 08:00 97.8 92 24 126/59 99 07/20/16 08:00 92 07/20/16 06:00 80 07/20/16 04:00 85 07/20/16 04:00 97.7 85 32 115/58 98 07/20/16 02:00 79 07/20/16 01:15 96 30 07/20/16 00:07 98 30 07/20/16 00:01 98 30 07/20/16 00:00 80 07/20/16 00:00 98.2 78 19 108/60 98 07/19/16 22:00 80 07/19/16 21:45 95 30 07/19/16 20:00 85 07/19/16 20:00 98.6 85 33 128/72 99 07/19/16 19:48 96 Nasal Cannula 3.00 07/19/16 18:00 98 07/19/16 16:00 98.0 88 25 127/75 100 07/19/16 14:00 95 I/O 07/19/16 07/19/16 07/19/16 07/20/16 07/20/16 07/20/16 06:59 14:59 22:59 06:59 14:59 22:59 Intake Total 240 ml 750 ml 420 ml 240 ml Output Total 550 ml 700 ml 200 ml 550 ml 300 ml Balance -310 ml 50 ml 220 ml -310 ml -300 ml Intake Oral 240 ml 750 ml 420 ml 240 ml IV Total 0 ml 0 ml 0 ml 0 ml Output Urine Total 550 ml 700 ml 200 ml 550 ml 300 ml # Bowel Movements 0 1 1 0 Result Diagram: 07/17/16 0512 07/19/16 0523 Imaging Last Impressions Chest X-Ray 07/16/16 1629 Signed Impressions: Service Date/Time: Saturday, July 16, 2016 16:39 - CONCLUSION: No acute disease. Antwan Reeves Jr., MD Procedures BiPAP Other Results Laboratory Tests Test 07/16/16 07/16/16 07/17/16 07/17/16 16:18 16:35 01:15 05:12 Venous Blood pH 7.30 Venous Blood Partial Pressure 60 mmHg CO2 Venous Blood Partial Pressure 70 mmHg O2 Venous Blood HCO3 28 mmol/L Venous Blood Oxygen Saturation 88 % Venous Blood Oxygen Content 12.0 Vol % Venous Blood Base Excess 2.3 mmol/L Prothrombin Time 11.9 SEC Prothromb Time International 1.1 RATIO Ratio Activated Partial 28.8 SEC Thromboplast Time Total Bilirubin 0.6 MG/DL Aspartate Amino Transf 32 U/L (AST/SGOT) Alanine Aminotransferase 32 U/L (ALT/SGPT) Alkaline Phosphatase 71 U/L B-Type Natriuretic Peptide 104 PG/ML Total Protein 6.5 GM/DL Albumin 3.1 GM/DL Nasal Screen MRSA (PCR) MRSA NOT DETECTED White Blood Count 4.7 TH/MM3 Red Blood Count 3.46 MIL/MM3 Hemoglobin 10.2 GM/DL Hematocrit 32.3 % Mean Corpuscular Volume 93.3 FL Mean Corpuscular Hemoglobin 29.5 PG Mean Corpuscular Hemoglobin 31.7 % Concent Red Cell Distribution Width 18.1 % Platelet Count 207 TH/MM3 Mean Platelet Volume 6.9 FL Neutrophils (%) (Auto) 95.5 % Lymphocytes (%) (Auto) 3.5 % Monocytes (%) (Auto) 0.9 % Eosinophils (%) (Auto) 0.0 % Basophils (%) (Auto) 0.1 % Neutrophils # (Auto) 4.5 TH/MM3 Lymphocytes # (Auto) 0.2 TH/MM3 Monocytes # (Auto) 0.0 TH/MM3 Eosinophils # (Auto) 0.0 TH/MM3 Basophils # (Auto) 0.0 TH/MM3 CBC Comment DIFF FINAL Differential Comment Troponin I LESS THAN 0.02 NG/ML Test 07/17/16 07/18/16 07/19/16 05:51 06:48 05:23 Blood Gas Ventilator Setting Blood Gas Inspired Oxygen 35 % Blood Gas Puncture Site LT RADIAL Blood Gas Patient Temperature 98.6 Blood Gas HCO3 28 mmol/L Blood Gas Base Excess 2.3 mmol/L Blood Gas Oxygen Saturation 97 % Arterial Blood pH 7.30 Arterial Blood Partial 59 mmHg Pressure CO2 Arterial Blood Partial 166 mmHg Pressure O2 Arterial Blood Oxygen Content 13.8 Vol % Arterial Blood 1.8 % Carboxyhemoglobin Arterial Blood Methemoglobin 0.9 % Blood Gas Hemoglobin 9.9 G/DL Oxygen Delivery Device NASAL CANNULA Blood Gas Liter Flow 5 L/M Sodium Level 137 MEQ/L Potassium Level 4.5 MEQ/L Chloride Level 98 MEQ/L Carbon Dioxide Level 32.2 MEQ/L Anion Gap 7 MEQ/L Blood Urea Nitrogen 29 MG/DL Creatinine 1.12 MG/DL Estimat Glomerular Filtration 65 ML/MIN Rate Random Glucose 143 MG/DL Calcium Level 8.8 MG/DL Phosphorus Level 3.1 MG/DL Magnesium Level 2.3 MG/DL Total Creatine Kinase 503 U/L Creatine Kinase MB 6.3 NG/ML Creatine Kinase MB % 1.3 % Objective Remarks GENERAL: Obese patient in acute respiratory distress. on BiPAP SKIN: warm and dry at this time. HEAD: Atraumatic. Normocephalic. EYES: Pupils equal and round. No scleral icterus. No injection or drainage. ENT: No nasal bleeding or discharge. Mucous membranes pink and moist. NECK: Trachea midline. No JVD. CARDIOVASCULAR: Irregular rate and rhythm. RESPIRATORY: Decreased breath sounds bilateral, mild expiratory wheezing, ad no crackles. GASTROINTESTINAL: Abdomen soft, obese, no rebound tenderness. MUSCULOSKELETAL: No obvious deformities. No clubbing. No cyanosis. Edema 3+ NEUROLOGICAL: Awake and alert. No obvious cranial nerve deficits. Motor grossly within normal limits. Normal speech. PSYCHIATRIC: Appropriate mood and affect; insight and judgment normal. Medications and IVs Current Medications Medications (Trade) Dose Ordered Sig/Elif Route Start Time Stop Time Status Last Admin (Cordarone) 200 mg DAILY PO 07/17/16 09:00 07/20/16 09:00 (Eliquis) 5 mg BID PO 07/16/16 21:00 07/20/16 09:00 (Ecotrin Ec) 162 mg DAILY PO 07/17/16 09:00 07/20/16 08:20 (Buspar) 5 mg TID PO 07/17/16 09:00 07/20/16 12:11 (Cardizem Cd) 360 mg DAILY PO 07/17/16 09:00 07/20/16 08:19 (Folate) 1 mg DAILY PO 07/17/16 09:00 07/20/16 09:00 (Lasix) 40 mg DAILY PO 07/17/16 09:00 07/20/16 08:20 (Prinivil) 10 mg DAILY PO 07/17/16 09:00 07/20/16 08:20 (Habitrol 21 Mg Patch.24 Hr) 1 patch DAILY T-DERMAL 07/17/16 09:00 07/20/16 08:21 (Protonix) 40 mg DAILY PO 07/17/16 09:00 07/20/16 09:00 (Vitamin B1) 100 mg DAILY PO 07/17/16 09:00 07/20/16 09:00 Miscellaneous Information 1 DAILY T-DERMAL 07/17/16 09:00 07/20/16 09:00 (NS Flush) 2 ml UNSCH PRN IV FLUSH 07/16/16 18:15 (NS Flush) 2 ml BID IV FLUSH 07/16/16 21:00 07/20/16 10:54 (Tylenol) 650 mg Q4H PRN PO 07/16/16 18:15 (Zofran Inj) 4 mg Q6H PRN IVP 07/16/16 18:15 (Dulcolax Supp) 10 mg DAILY PRN RECTAL 07/16/16 18:15 (Colace) 100 mg Q12H PO 07/16/16 20:00 07/20/16 08:00 (Narcan Inj) 0.4 mg UNSCH PRN IV 07/16/16 18:15 (Mucinex Er) 600 mg BID PO 07/16/16 21:00 07/20/16 08:19 (SoluMEDROL INJ) 40 mg Q6HR IV PUSH 07/16/16 18:45 07/20/16 12:11 Miscellaneous Information Patient in critical care unit? Ass... Q361D .XX 07/16/16 23:15 (Chlorhexidine 2% Cloth) 3 pack DAILY@04 TOPICAL 07/17/16 04:00 07/21/16 04:01 07/20/16 03:08 (Chlorhexidine 2% Cloth) 3 pack UNSCH PRN TOPICAL 07/16/16 23:15 07/21/16 23:14 (Morphine Inj) 1 mg Q4H PRN IV PUSH 07/18/16 14:45 07/18/16 15:19 (Toprol Xl) 12.5 mg DAILY PO 07/19/16 18:00 07/20/16 08:20 (Pill Splitter) 1 ea UNSCH PRN OTHER 07/18/16 18:00 (Xanax) 0.25 mg Q4H PRN PO 07/19/16 20:15 (Levaquin) 500 mg DAILY PO 07/20/16 09:00 07/20/16 08:19 A/P Assessment and Plan 1. Acute on chronic respiratory Failure, has chronic Respiratory acidosis and Metabolic Alkalosis, secondary to COPD exacerbation was on BiPAP PRN, on Nasal cannula. will continue Steroids and titrate as needed. the patient states he continue symptomatic, seen by card services specialist optimized Bronchodilators. 2. COPD exacerbation Bronchodilator, Mucolytic and incentive spirometry, Cardiac Monitoring, Cardiac enzymes Steroids. on nasal cannula. card services specialist following. Added Levaquin 500 mg daily. 3. Tobacco dependence Strongly recommended to stop smoking, continue Nicotine patch. 4. Atrial Fibrillation with RVR. continue Home medicines, added Metoprolol 5 mg IV one dose. added Metoprolol continue Atrial Fibrillation with Controlled rate. 5. OA by history 6. Obesity strongly recommended diet and exercise. as outpatient PT eval. 7. Testicular and Lung cancer history. 8. MAGO by history. DVT prophylaxis with Apixaban Code Status Full Code. Discussed Condition With Patient all questions answered to the best of my abilities. Discharge Planning Once cleared by specialists. Mahin Tay MD July 20, 2016 13:08
--- NOTE | 2016-07-20 16:04 | HHI.PR ---
Subjective Remarks LESS SOB Objective Vital Signs Date Time Temp Pulse Resp B/P Pulse Ox O2 Delivery O2 Flow Rate FiO2 07/20/16 14:00 89 07/20/16 12:00 98.2 78 26 98/45 98 07/20/16 12:00 78 07/20/16 10:00 88 07/20/16 08:38 100 Nasal Cannula 3.00 07/20/16 08:00 97.8 92 24 126/59 99 07/20/16 08:00 92 07/20/16 06:00 80 07/20/16 04:00 85 07/20/16 04:00 97.7 85 32 115/58 98 07/20/16 02:00 79 07/20/16 01:15 96 30 07/20/16 00:07 98 30 07/20/16 00:01 98 30 07/20/16 00:00 80 07/20/16 00:00 98.2 78 19 108/60 98 07/19/16 22:00 80 07/19/16 21:45 95 30 07/19/16 20:00 85 07/19/16 20:00 98.6 85 33 128/72 99 07/19/16 19:48 96 Nasal Cannula 3.00 07/19/16 18:00 98 I/O 07/19/16 07/19/16 07/19/16 07/20/16 07/20/16 07/20/16 06:59 14:59 22:59 06:59 14:59 22:59 Intake Total 240 ml 750 ml 420 ml 240 ml 625 ml Output Total 550 ml 700 ml 200 ml 550 ml 975 ml 200 ml Balance -310 ml 50 ml 220 ml -310 ml -350 ml -200 ml Intake Oral 240 ml 750 ml 420 ml 240 ml 625 ml IV Total 0 ml 0 ml 0 ml 0 ml 0 ml Output Urine Total 550 ml 700 ml 200 ml 550 ml 975 ml 200 ml # Bowel Movements 0 1 1 0 1 Result Diagram: 07/17/16 0512 07/19/16 0523 Procedures BiPAP Medications and IVs LESS SOB Assessment and Plan Assessment and Plan RESPIRATORY FAILURE COPD EX PLAN O2 NEEDED BRONCHODILATOR THERAPY Discharge Planning Last Impressions Chest X-Ray 07/16/16 7376 Signed Impressions: Service Date/Time: Saturday, July 16, 2016 16:39 - CONCLUSION: No acute disease. MD Sabrina Peralta Jr.,Sabrina Cantor MD July 20, 2016 16:04
[2016-07-20 21:24] LABS: BLOOD, URINE NEG (NEG); GLUCOSE,URINE NEG (NEG); KETONE, URINE NEG (NEG); MUCUS URINE FEW /lpf (OCC); NITRITE,URINE NEG (NEG); URINE COLOR LIGHT-YELLOW (YELLW/STRAW)
[2016-07-20 21:25] LABS: COMMENT (UR) CULT NOT INDICATED; CULTURE IF INDICATED CULT NOT INDICATED
[2016-07-20] MEDS: RESP: IPRATROPIUM 0.5 MG/2.5 ML NEB NEB PRN (22:17)
[2016-07-21] VITALS (17 sets, daily range): BP systolic 102–145; BP diastolic 60–77; PULSE 75–114; RESP 24–33; TEMP 97.8–98.3; O2SAT 90–99
[2016-07-21] MEDS: methylPREDNISolone SOD SUCC 40 MG/1 ML VIAL IV PUSH SCH ×4 (00:22→18:00)
[2016-07-21] MEDS: RESP: IPRATROPIUM 0.5 MG/2.5 ML NEB NEB PRN ×2 (03:07→07:46)
[2016-07-21] MEDS: CHLORHEXIDINE GLUCONATE 2 % 1 PACK (2 CLOTHS)(taper/protocol) TOPICAL SCH (04:00)
[2016-07-21] MEDS: INSULIN NovoLIN REGULAR SUPPLEMENTAL SCALE SQ SCH ×4 (06:01→20:38)
[2016-07-21] MEDS: RESP: BUDESONIDE 0.5 MG/2 ML NEB NEB SCH ×2 (07:40→19:32)
[2016-07-21] MEDS: DOCUSATE SODIUM 100 MG CAP PO SCH ×2 (08:22→19:39)
[2016-07-21] MEDS: busPIRone HCL 5 MG TAB PO SCH ×3 (08:22→18:10)
[2016-07-21] MEDS: LEVOFLOXACIN 500 MG TAB PO SCH (08:22)
[2016-07-21] MEDS: THIAMINE HCL 100 MG TAB PO SCH (08:22)
[2016-07-21] MEDS: ASPIRIN EC 81 MG TABEC PO SCH (08:23)
[2016-07-21] MEDS: guaiFENesin E.R. 600 MG TAB PO SCH ×2 (08:23→20:35)
[2016-07-21] MEDS: APIXABAN 5 MG TABLET PO SCH ×2 (08:23→20:35)
[2016-07-21] MEDS: ALPRAZolam 0.25 MG TAB PO PRN ×2 (08:23→20:35)
[2016-07-21] MEDS: PANTOPRAZOLE SOD 40 MG DELAYED RELEASE TAB PO SCH (08:23)
[2016-07-21] MEDS: METOPROLOL SUCCINATE 25 MG EXTENDED RELEASE TAB PO SCH (08:23)
[2016-07-21] MEDS: AMIODARONE 200 MG TAB PO SCH (08:23)
[2016-07-21] MEDS: FOLIC ACID 1 MG TAB PO SCH (08:23)
[2016-07-21] MEDS: DILTIAZEM-CD 180 MG CAP ER PO SCH (08:23)
[2016-07-21] MEDS: NICOTINE 21 MG/24 HR PATCH T-DERMAL SCH (08:24)
[2016-07-21] MEDS: REMOVE OLD PATCH T-DERMAL SCH (08:24)
[2016-07-21] MEDS: FUROSEMIDE 40 MG TAB PO SCH (08:40)
[2016-07-21] MEDS: LISINOPRIL 10 MG TAB PO SCH (08:40)
[2016-07-21] MEDS: SODIUM CHLORIDE 0.9% FLUSH 10 ML FLUSH IV FLUSH SCH ×2 (08:41→20:35)
--- NOTE | 2016-07-21 09:51 | HHI.PR ---
Subjective Remarks currently on Bipap. has some wheezing. no fever. denies pain. d/w the RN. Objective Vitals Vital Signs Date Time Temp Pulse Resp B/P Pulse Ox O2 Delivery O2 Flow Rate FiO2 07/21/16 07:40 98 Nasal Cannula 3.00 07/21/16 06:00 89 07/21/16 04:00 97.9 85 25 145/67 90 07/21/16 04:00 85 07/21/16 02:00 79 07/21/16 00:00 98.3 80 24 120/63 99 07/21/16 00:00 80 07/20/16 22:23 97 30 07/20/16 22:00 81 07/20/16 20:00 82 07/20/16 20:00 98.1 82 19 122/69 99 07/20/16 19:48 98 Nasal Cannula 3.00 07/20/16 18:00 92 07/20/16 16:00 97.9 89 28 115/56 96 07/20/16 16:00 90 07/20/16 14:00 89 07/20/16 12:00 98.2 78 26 98/45 98 07/20/16 12:00 78 07/20/16 10:00 88 I/O 07/20/16 07/20/16 07/20/16 07/21/16 07/21/16 07/21/16 07:00 15:00 23:00 07:00 15:00 23:00 Intake Total 240 ml 625 ml 460 ml 240 ml Output Total 550 ml 975 ml 700 ml 600 ml Balance -310 ml -350 ml -240 ml -360 ml Intake Oral 240 ml 625 ml 460 ml 240 ml IV Total 0 ml 0 ml Output Urine Total 550 ml 975 ml 700 ml 600 ml # Bowel Movements 0 1 2 Result Diagram: 07/17/16 0512 07/19/16 0523 Imaging Last Impressions Chest X-Ray 07/16/16 1629 Signed Impressions: Service Date/Time: Saturday, July 16, 2016 16:39 - CONCLUSION: No acute disease. Antwan Reeves Jr., MD Objective Remarks GENERAL: This is a well-nourished, well-developed patient, in no apparent distress. CARDIOVASCULAR: Regular rate and regular rhythm without murmurs, gallops, or rubs. RESPIRATORY: diminished air entry bilaterally with some wheezing. GASTROINTESTINAL: Abdomen soft, non-tender, nondistended. Normal, active bowel sounds MUSCULOSKELETAL: Extremities with bilateral pedal edema. NEURO: Alert & Oriented x4 to person, place, time, situation. Moves all ext x4 Medications and IVs Current Medications Sodium Chloride (NS Flush) 2 ml UNSCH PRN IVF FLUSH AFTER USING IV ACCESS; Start 07/16/16 at 16:30; Stop 07/16/16 at 18:18; Status DC Furosemide (Lasix Inj) 40 mg ONCE ONCE IVP Last administered on 07/16/16 17: 33; Start 07/16/16 at 16:30; Stop 07/16/16 at 16:32; Status DC Methylprednisolone Sodium Succinate (SoluMEDROL INJ) 125 mg ONCE ONCE IVP Last administered on 07/16/16 17:32; Start 07/16/16 at 16:30; Stop 07/16/16 at 16:32; Status DC Albuterol/ Ipratropium (Duoneb Neb) 1 ampule Q15M INH Last administered on 07/16 16:45; Start 07/16/16 at 16:30; Stop 07/16/16 at 16:46; Status DC Morphine Sulfate (Morphine Inj) 4 mg ONCE ONCE IV PUSH Last administered on 17:29; Start 07/16/16 at 16:30; Stop 07/16/16 at 16:32; Status DC Ondansetron HCl (Zofran Inj) 4 mg ONCE ONCE IV PUSH Last administered on 17:33; Start 07/16/16 at 16:30; Stop 07/16/16 at 16:32; Status DC Amiodarone HCl (Cordarone) 200 mg DAILY PO Last administered on 07/21/16 08:23 ; Start 07/17/16 at 09:00 Apixaban (Eliquis) 5 mg BID PO Last administered on 07/21/16 08:23; Start at 21:00 Aspirin (Ecotrin Ec) 162 mg DAILY PO Last administered on 07/21/16 08:23; Start 07/17/16 at 09:00 Buspirone HCl (Buspar) 5 mg TID PO Last administered on 07/21/16 08:22; Start 07/17/16 at 09:00 Diltiazem HCl (Cardizem Cd) 360 mg DAILY PO Last administered on 07/21/16 08: 23; Start 07/17/16 at 09:00 Folic Acid (Folate) 1 mg DAILY PO Last administered on 07/21/16 08:23; Start 07/17/16 at 09:00 Furosemide (Lasix) 40 mg DAILY PO Last administered on 07/21/16 08:40; Start 07/17/16 at 09:00 Lisinopril (Prinivil) 10 mg DAILY PO Last administered on 07/21/16 08:40; Start 07/17/16 at 09:00 Nicotine (Habitrol 21 Mg Patch.24 Hr) 1 patch DAILY T-DERMAL Last administered on 07/21/16 08:24; Start 07/17/16 at 09:00 Pantoprazole Sodium (Protonix) 40 mg DAILY PO Last administered on 07/21/16 08 :23; Start 07/17/16 at 09:00 Prednisone (Deltasone) 40 mg DAILY PO ; Start 07/17/16 at 09:00; Stop 07/17/16 at 09:00; Status DC Thiamine HCl (Vitamin B1) 100 mg DAILY PO Last administered on 07/21/16 08:22 ; Start 07/17/16 at 09:00 Miscellaneous Information 1 1 DAILY T-DERMAL Last administered on 07/21/16 08: 24; Start 07/17/16 at 09:00 Sodium Chloride (NS 1000 ml Inj) 1,000 ml @ 83 mls/hr Q12H3M IV Last administered on 07/18/16 05:25; Start 07/16/16 at 18:30; Stop 07/18/16 at 12:57 ; Status DC Sodium Chloride (NS Flush) 2 ml UNSCH PRN IV FLUSH FLUSH AFTER USING IV ACCESS ; Start 07/16/16 at 18:15 Sodium Chloride (NS Flush) 2 ml BID IV FLUSH Last administered on 07/21/16 08: 41; Start 07/16/16 at 21:00 Acetaminophen (Tylenol) 650 mg Q4H PRN PO TEMP > 100.4; Start 07/16/16 at 18:15 Ondansetron HCl (Zofran Inj) 4 mg Q6H PRN IVP NAUSEA OR VOMITING; Start at 18:15 Bisacodyl (Dulcolax Supp) 10 mg DAILY PRN RECTAL CONSTIPATION; Start 07/16/16 at 18:15 Docusate Sodium (Colace) 100 mg Q12H PO Last administered on 07/21/16 08:22; Start 07/16/16 at 20:00 Naloxone HCl (Narcan Inj) 0.4 mg UNSCH PRN IV SEE LABEL COMMENTS; Start at 18:15 Albuterol/ Ipratropium (Duoneb Neb) 1 ampule Q4HR NEB NEB Last administered on 07/20/16 19:43; Start 07/16/16 at 20:00; Stop 07/20/16 at 20:00; Status DC Guaifenesin (Mucinex Er) 600 mg BID PO Last administered on 07/21/16 08:23; Start 07/16/16 at 21:00 Budesonide (Pulmicort Respule Neb) 0.5 mg Q12HR NEB NEB Last administered on 07:40; Start 07/16/16 at 20:00 Methylprednisolone Sodium Succinate (SoluMEDROL INJ) 40 mg Q6HR IV PUSH Last administered on 07/21/16 05:55; Start 07/16/16 at 18:45 Miscellaneous Information Patient in critical care unit? Ass... Q361D .XX ; Start 07/16/16 at 23:15 Chlorhexidine Gluconate (Chlorhexidine 2% Cloth) 3 pack DAILY@04 TOPICAL Last administered on 07/21/16 04:00; Start 07/17/16 at 04:00; Stop 07/21/16 at 04:01 ; Status DC Chlorhexidine Gluconate (Chlorhexidine 2% Cloth) 3 pack UNSCH PRN TOPICAL HYGIENIC CARE; Start 07/16/16 at 23:15; Stop 07/21/16 at 23:14 Sodium Polystyrene Sulfonate (Kayexalate Liq) 15 gm ONCE ONCE PO Last administered on 07/17/16 09:15; Start 07/17/16 at 08:30; Stop 07/17/16 at 08:39 ; Status DC Metoprolol Tartrate (Lopressor Inj) 5 mg ONCE ONCE IV PUSH Last administered on 07/17/16 15:07; Start 07/17/16 at 14:15; Stop 07/17/16 at 14:16; Status DC Insulin Human Regular (NovoLIN R SUPPLEMENTAL SCALE) 1 ACHS SLIDING SCALE SQ Last administered on 07/21/16 06:01; Start 07/17/16 at 16:00 Ipratropium [place] (Atrovent Neb) 0.5 mg Q2HR NEB PRN NEB wheezing Last administered on 07/21/16 07:46; Start 07/18/16 at 06:45 Furosemide (Lasix Inj) 40 mg ONCE ONCE IV PUSH Last administered on 07/18/16 13:23; Start 07/18/16 at 13:00; Stop 07/18/16 at 13:03; Status DC Morphine Sulfate (Morphine Inj) 1 mg Q4H PRN IV PUSH SHORTNESS OF BREATH Last administered on 07/18/16 15:19; Start 07/18/16 at 14:45 Metoprolol Tartrate (Lopressor Inj) 5 mg ONCE ONCE IV PUSH ; Start 07/18/16 at 17:30; Stop 07/18/16 at 17:30; Status DC Metoprolol Tartrate (Lopressor Inj) 5 mg ONCE ONCE IV PUSH Last administered on 07/18/16 18:03; Start 07/18/16 at 18:30; Stop 07/18/16 at 18:31; Status DC Metoprolol Succinate (Toprol Xl) 12.5 mg DAILY PO Last administered on 08:23; Start 07/19/16 at 18:00 Miscellaneous (Pill Splitter) 1 ea UNSCH PRN OTHER SEE LABEL COMMENTS; Start at 18:00 Alprazolam (Xanax) 0.25 mg Q4H PRN PO MILD ANXIETY Last administered on 08:23; Start 07/19/16 at 20:15 Levofloxacin (Levaquin) 500 mg DAILY PO Last administered on 07/21/16 08:22; Start 07/20/16 at 09:00 A/P Assessment and Plan A/P 1. Acute on chronic respiratory Failure, has chronic Respiratory acidosis and Metabolic Alkalosis, secondary to COPD exacerbation on BiPAP PRN, on Nasal cannula. will continue Steroids and neb treatment. pulmonary following. 2. COPD exacerbation Bronchodilator, Mucolytic and incentive spirometry. Steroids. on nasal cannula. Pulmonary following. Added Levaquin 500 mg daily. 3. Tobacco dependence Strongly recommended to stop smoking, continue Nicotine patch. 4. Atrial Fibrillation -. continue Home medicines, on BB, amiodarone and eliquis. 5. OA by history 6. Obesity strongly recommended diet and exercise. as outpatient PT eval. 7. Testicular and Lung cancer history. 8. MAGO by history. DVT prophylaxis with Apixaban will keep in ICU today for close monitoring. Sherly Marinelli MD July 21, 2016 09:51
[2016-07-21] MEDS: RESP: ALBUTEROL 2.5 MG/IPRATROPIUM 0.5 MG NEB (SCH) NEB ×4 (10:02→19:32)
[2016-07-21] MEDS: MORPHINE SULFATE 4 MG/ML INJ IV PUSH PRN (10:25)
[2016-07-22] VITALS (14 sets, daily range): BP systolic 107–134; BP diastolic 56–74; PULSE 77–100; RESP 19–26; TEMP 97–98.3; O2SAT 92–100
[2016-07-22] MEDS: MORPHINE SULFATE 4 MG/ML INJ IV PUSH PRN ×2 (00:11→08:49)
[2016-07-22] MEDS: methylPREDNISolone SOD SUCC 40 MG/1 ML VIAL IV PUSH SCH ×3 (00:11→11:04)
[2016-07-22] MEDS: INSULIN NovoLIN REGULAR SUPPLEMENTAL SCALE SQ SCH ×4 (06:10→20:07)
[2016-07-22 06:14] LABS: AUTOMATED NEUTROPHIL # 8.3 TH/MM3 (1.8-7.7); BASOPHIL % 0.2 % (0.0-2.0); HEMATOCRIT 30.7 % (39.0-51.0); HEMO FLAGS DIFF FINAL; LYMPHOCYTE # 0.1 TH/MM3 (1.0-4.8); MEAN CELL VOLUME 92.8 FL (80.0-100.0); MEAN CORPUSCULAR HEMOGLOBIN 31.1 PG (27.0-34.0); MEAN CORPUSCULAR HGB CONC 33.5 % (32.0-36.0); MONO % 3.5 % (0.0-8.0); NEUT % 95.3 % (16.0-70.0); PLATELET COUNT 236 TH/MM3 (150-450); RED CELL DISTRIBUTION WIDTH 17.5 % (11.6-17.2); WHITE BLOOD COUNT 8.7 TH/MM3 (4.0-11.0)
[2016-07-22 06:50] LABS: BICARBONATE 41.6 MEQ/L (21.0-32.0); POTASSIUM 4.6 MEQ/L (3.5-5.1)
[2016-07-22] MEDS: RESP: BUDESONIDE 0.5 MG/2 ML NEB NEB SCH ×2 (07:43→20:16)
[2016-07-22] MEDS: RESP: ALBUTEROL 2.5 MG/IPRATROPIUM 0.5 MG NEB (SCH) NEB ×4 (07:43→20:16)
[2016-07-22] MEDS: busPIRone HCL 5 MG TAB PO SCH ×3 (08:38→18:41)
[2016-07-22] MEDS: AMIODARONE 200 MG TAB PO SCH (08:38)
[2016-07-22] MEDS: PANTOPRAZOLE SOD 40 MG DELAYED RELEASE TAB PO SCH (08:39)
[2016-07-22] MEDS: FUROSEMIDE 40 MG TAB PO SCH (08:39)
[2016-07-22] MEDS: METOPROLOL SUCCINATE 25 MG EXTENDED RELEASE TAB PO SCH (08:39)
[2016-07-22] MEDS: LISINOPRIL 10 MG TAB PO SCH (08:39)
[2016-07-22] MEDS: ASPIRIN EC 81 MG TABEC PO SCH (08:39)
[2016-07-22] MEDS: FOLIC ACID 1 MG TAB PO SCH (08:39)
[2016-07-22] MEDS: LEVOFLOXACIN 500 MG TAB PO SCH (08:39)
[2016-07-22] MEDS: APIXABAN 5 MG TABLET PO SCH ×2 (08:39→20:08)
[2016-07-22] MEDS: DOCUSATE SODIUM 100 MG CAP PO SCH ×2 (08:39→20:08)
[2016-07-22] MEDS: guaiFENesin E.R. 600 MG TAB PO SCH ×2 (08:40→20:08)
[2016-07-22] MEDS: THIAMINE HCL 100 MG TAB PO SCH (08:40)
[2016-07-22] MEDS: SODIUM CHLORIDE 0.9% FLUSH 10 ML FLUSH IV FLUSH SCH ×2 (08:40→20:05)
[2016-07-22] MEDS: DILTIAZEM-CD 180 MG CAP ER PO SCH (08:40)
[2016-07-22] MEDS: NICOTINE 21 MG/24 HR PATCH T-DERMAL SCH (08:40)
[2016-07-22] MEDS: REMOVE OLD PATCH T-DERMAL SCH (08:40)
[2016-07-22] MEDS: SODIUM CHLORIDE 0.9% FLUSH 10 ML FLUSH IV FLUSH PRN (08:50)
--- NOTE | 2016-07-22 11:14 | HHI.PR ---
Subjective Remarks looks and feels better today. stable on three liters of oxygen via N/C. d/w the RN and no acute issues over night. Objective Vitals Vital Signs Date Time Temp Pulse Resp B/P Pulse Ox O2 Delivery O2 Flow Rate FiO2 07/22/16 10:00 94 07/22/16 08:00 97.0 90 20 128/62 100 07/22/16 08:00 90 07/22/16 07:43 92 Nasal Cannula 3.00 07/22/16 06:00 83 07/22/16 04:00 98.1 87 24 134/63 97 07/22/16 04:00 87 07/22/16 02:00 77 07/22/16 00:00 98.3 87 26 129/74 96 07/22/16 00:00 87 07/21/16 22:00 75 07/21/16 20:00 114 07/21/16 20:00 98.1 114 28 136/60 94 07/21/16 19:35 98 Nasal Cannula 3.00 07/21/16 18:00 96 07/21/16 16:00 97.8 82 26 115/67 99 07/21/16 16:00 82 07/21/16 14:00 91 07/21/16 12:00 94 07/21/16 12:00 97.9 94 33 102/62 I/O 07/21/16 07/21/16 07/21/16 07/22/16 07/22/16 07/22/16 07:00 15:00 23:00 07:00 15:00 23:00 Intake Total 240 ml 960 ml 480 ml Output Total 600 ml 1700 ml 550 ml Balance -360 ml -740 ml -70 ml Intake Oral 240 ml 960 ml 480 ml Output Urine Total 600 ml 1700 ml 550 ml # Bowel Movements 1 1 Result Diagram: 07/22/16 0442 07/22/16 0442 Imaging Last Impressions Chest X-Ray 07/16/16 1629 Signed Impressions: Service Date/Time: Saturday, July 16, 2016 16:39 - CONCLUSION: No acute disease. Antwan Reeves Jr., MD Objective Remarks GENERAL: This is a well-nourished, well-developed patient, in no apparent distress. CARDIOVASCULAR: Regular rate and regular rhythm without murmurs, gallops, or rubs. RESPIRATORY: diminished air entry bilaterally . GASTROINTESTINAL: Abdomen soft, non-tender, nondistended. Normal, active bowel sounds MUSCULOSKELETAL: Extremities with bilateral pedal edema. NEURO: Alert & Oriented x4 to person, place, time, situation. Moves all ext x4 Medications and IVs Current Medications Sodium Chloride (NS Flush) 2 ml UNSCH PRN IVF FLUSH AFTER USING IV ACCESS; Start 07/16/16 at 16:30; Stop 07/16/16 at 18:18; Status DC Furosemide (Lasix Inj) 40 mg ONCE ONCE IVP Last administered on 07/16/16 17: 33; Start 07/16/16 at 16:30; Stop 07/16/16 at 16:32; Status DC Methylprednisolone Sodium Succinate (SoluMEDROL INJ) 125 mg ONCE ONCE IVP Last administered on 07/16/16 17:32; Start 07/16/16 at 16:30; Stop 07/16/16 at 16:32; Status DC Albuterol/ Ipratropium (Duoneb Neb) 1 ampule Q15M INH Last administered on 07/16 16:45; Start 07/16/16 at 16:30; Stop 07/16/16 at 16:46; Status DC Morphine Sulfate (Morphine Inj) 4 mg ONCE ONCE IV PUSH Last administered on 17:29; Start 07/16/16 at 16:30; Stop 07/16/16 at 16:32; Status DC Ondansetron HCl (Zofran Inj) 4 mg ONCE ONCE IV PUSH Last administered on 17:33; Start 07/16/16 at 16:30; Stop 07/16/16 at 16:32; Status DC Amiodarone HCl (Cordarone) 200 mg DAILY PO Last administered on 07/22/16 08:38 ; Start 07/17/16 at 09:00 Apixaban (Eliquis) 5 mg BID PO Last administered on 07/22/16 08:39; Start at 21:00 Aspirin (Ecotrin Ec) 162 mg DAILY PO Last administered on 07/22/16 08:39; Start 07/17/16 at 09:00 Buspirone HCl (Buspar) 5 mg TID PO Last administered on 07/22/16 08:38; Start 07/17/16 at 09:00 Diltiazem HCl (Cardizem Cd) 360 mg DAILY PO Last administered on 07/22/16 08: 40; Start 07/17/16 at 09:00 Folic Acid (Folate) 1 mg DAILY PO Last administered on 07/22/16 08:39; Start 07/17/16 at 09:00 Furosemide (Lasix) 40 mg DAILY PO Last administered on 07/22/16 08:39; Start 07/17/16 at 09:00 Lisinopril (Prinivil) 10 mg DAILY PO Last administered on 07/22/16 08:39; Start 07/17/16 at 09:00 Nicotine (Habitrol 21 Mg Patch.24 Hr) 1 patch DAILY T-DERMAL Last administered on 07/22/16 08:40; Start 07/17/16 at 09:00 Pantoprazole Sodium (Protonix) 40 mg DAILY PO Last administered on 07/22/16 08 :39; Start 07/17/16 at 09:00 Prednisone (Deltasone) 40 mg DAILY PO ; Start 07/17/16 at 09:00; Stop 07/17/16 at 09:00; Status DC Thiamine HCl (Vitamin B1) 100 mg DAILY PO Last administered on 07/22/16 08:40 ; Start 07/17/16 at 09:00 Miscellaneous Information 1 1 DAILY T-DERMAL Last administered on 07/22/16 08: 40; Start 07/17/16 at 09:00 Sodium Chloride (NS 1000 ml Inj) 1,000 ml @ 83 mls/hr Q12H3M IV Last administered on 07/18/16 05:25; Start 07/16/16 at 18:30; Stop 07/18/16 at 12:57 ; Status DC Sodium Chloride (NS Flush) 2 ml UNSCH PRN IV FLUSH FLUSH AFTER USING IV ACCESS Last administered on 07/22/16 08:50; Start 07/16/16 at 18:15 Sodium Chloride (NS Flush) 2 ml BID IV FLUSH Last administered on 07/22/16 08: 40; Start 07/16/16 at 21:00 Acetaminophen (Tylenol) 650 mg Q4H PRN PO TEMP > 100.4; Start 07/16/16 at 18:15 Ondansetron HCl (Zofran Inj) 4 mg Q6H PRN IVP NAUSEA OR VOMITING; Start at 18:15 Bisacodyl (Dulcolax Supp) 10 mg DAILY PRN RECTAL CONSTIPATION; Start 07/16/16 at 18:15 Docusate Sodium (Colace) 100 mg Q12H PO Last administered on 07/22/16 08:39; Start 07/16/16 at 20:00 Naloxone HCl (Narcan Inj) 0.4 mg UNSCH PRN IV SEE LABEL COMMENTS; Start at 18:15 Albuterol/ Ipratropium (Duoneb Neb) 1 ampule Q4HR NEB NEB Last administered on 07/20/16 19:43; Start 07/16/16 at 20:00; Stop 07/20/16 at 20:00; Status DC Guaifenesin (Mucinex Er) 600 mg BID PO Last administered on 07/22/16 08:40; Start 07/16/16 at 21:00 Budesonide (Pulmicort Respule Neb) 0.5 mg Q12HR NEB NEB Last administered on 07:43; Start 07/16/16 at 20:00 Methylprednisolone Sodium Succinate (SoluMEDROL INJ) 40 mg Q6HR IV PUSH Last administered on 07/22/16 11:04; Start 07/16/16 at 18:45 Miscellaneous Information Patient in critical care unit? Ass... Q361D .XX ; Start 07/16/16 at 23:15 Chlorhexidine Gluconate (Chlorhexidine 2% Cloth) 3 pack DAILY@04 TOPICAL Last administered on 07/21/16 04:00; Start 07/17/16 at 04:00; Stop 07/21/16 at 04:01 ; Status DC Chlorhexidine Gluconate (Chlorhexidine 2% Cloth) 3 pack UNSCH PRN TOPICAL HYGIENIC CARE; Start 07/16/16 at 23:15; Stop 07/21/16 at 23:14; Status DC Sodium Polystyrene Sulfonate (Kayexalate Liq) 15 gm ONCE ONCE PO Last administered on 07/17/16 09:15; Start 07/17/16 at 08:30; Stop 07/17/16 at 08:39 ; Status DC Metoprolol Tartrate (Lopressor Inj) 5 mg ONCE ONCE IV PUSH Last administered on 07/17/16 15:07; Start 07/17/16 at 14:15; Stop 07/17/16 at 14:16; Status DC Insulin Human Regular (NovoLIN R SUPPLEMENTAL SCALE) 1 ACHS SLIDING SCALE SQ Last administered on 07/22/16 11:00; Start 07/17/16 at 16:00 Ipratropium [place] (Atrovent Neb) 0.5 mg Q2HR NEB PRN NEB wheezing Last administered on 07/21/16 07:46; Start 07/18/16 at 06:45 Furosemide (Lasix Inj) 40 mg ONCE ONCE IV PUSH Last administered on 07/18/16 13:23; Start 07/18/16 at 13:00; Stop 07/18/16 at 13:03; Status DC Morphine Sulfate (Morphine Inj) 1 mg Q4H PRN IV PUSH SHORTNESS OF BREATH Last administered on 07/22/16 08:49; Start 07/18/16 at 14:45 Metoprolol Tartrate (Lopressor Inj) 5 mg ONCE ONCE IV PUSH ; Start 07/18/16 at 17:30; Stop 07/18/16 at 17:30; Status DC Metoprolol Tartrate (Lopressor Inj) 5 mg ONCE ONCE IV PUSH Last administered on 07/18/16 18:03; Start 07/18/16 at 18:30; Stop 07/18/16 at 18:31; Status DC Metoprolol Succinate (Toprol Xl) 12.5 mg DAILY PO Last administered on 08:39; Start 07/19/16 at 18:00 Miscellaneous (Pill Splitter) 1 ea UNSCH PRN OTHER SEE LABEL COMMENTS; Start at 18:00 Alprazolam (Xanax) 0.25 mg Q4H PRN PO MILD ANXIETY Last administered on 20:35; Start 07/19/16 at 20:15 Levofloxacin (Levaquin) 500 mg DAILY PO Last administered on 07/22/16 08:39; Start 07/20/16 at 09:00 Albuterol/ Ipratropium (Duoneb Neb) 1 ampule QID NEB NEB Last administered on 07/22/16 07:43; Start 07/21/16 at 10:00 A/P Assessment and Plan A/P 1. Acute on chronic respiratory Failure, has chronic Respiratory acidosis and Metabolic Alkalosis, secondary to COPD exacerbation - improving. on BiPAP PRN, on Nasal cannula. will continue Steroids and neb treatment. pulmonary following. 2. COPD exacerbation Bronchodilator, Mucolytic and incentive spirometry. Steroids. on nasal cannula. Pulmonary following. Added Levaquin 500 mg daily. 3. Tobacco dependence Strongly recommended to stop smoking, continue Nicotine patch. 4. Atrial Fibrillation -. continue Home medicines, on BB, amiodarone and eliquis. 5. OA by history 6. Obesity strongly recommended diet and exercise. as outpatient PT bhargav. 7. Testicular and Lung cancer history. 8. MAGO by history. DVT prophylaxis with Apixaban will transfer to telemetry. d/w the RNSherly Palomares MD July 22, 2016 11:13
--- NOTE | 2016-07-22 11:16 | HHI.FF ---
Face to Face Verification Diagnosis: (1) COPD exacerbation Physical Therapy Order: Evaluate and Treat Home Health Nursing Order: Medical education Signs/symptoms of disease process Nursing assessment with vital signs I have seen patient Scottie Elliott on 07/22/16. My clinical findings support the need for the requested home health care services because: Patient has SOB I certify that my clinical findings support that this patient is homebound because: Hx COPD- exertion dyspnea/weakness Unsteady gait/balance Sherly Marinelli MD July 22, 2016 11:16
[2016-07-22] MEDS: ALPRAZolam 0.25 MG TAB PO PRN ×2 (15:27→23:35)
[2016-07-22] MEDS ORDERED: LORazepam 2 MG/ML VIAL IV PUSH STA (15:52)
--- NOTE | 2016-07-22 18:50 | HHI.PR ---
Subjective Remarks .Up in a chair. O2 sat 95 on 3 L. Less wheezing, no fever Objective Vital Signs Date Time Temp Pulse Resp B/P Pulse Ox O2 Delivery O2 Flow Rate FiO2 07/22/16 16:00 98.3 90 19 117/71 100 07/22/16 16:00 90 07/22/16 14:00 90 07/22/16 12:00 98.2 100 22 107/61 93 07/22/16 12:00 100 07/22/16 10:00 94 07/22/16 08:00 97.0 90 20 128/62 100 07/22/16 08:00 90 07/22/16 07:43 92 Nasal Cannula 3.00 07/22/16 06:00 83 07/22/16 04:00 98.1 87 24 134/63 97 07/22/16 04:00 87 07/22/16 02:00 77 07/22/16 00:00 98.3 87 26 129/74 96 07/22/16 00:00 87 07/21/16 22:00 75 07/21/16 20:00 114 07/21/16 20:00 98.1 114 28 136/60 94 07/21/16 19:35 98 Nasal Cannula 3.00 I/O 07/21/16 07/21/16 07/21/16 07/22/16 07/22/16 07/22/16 07:00 15:00 23:00 07:00 15:00 23:00 Intake Total 240 ml 960 ml 480 ml 810 ml Output Total 600 ml 1700 ml 550 ml 400 ml Balance -360 ml -740 ml -70 ml 410 ml Intake Oral 240 ml 960 ml 480 ml 810 ml Output Urine Total 600 ml 1700 ml 550 ml 400 ml # Bowel Movements 1 1 3 Result Diagram: 07/22/16 0442 07/22/16 0442 Procedures BiPAP Objective Remarks IN GENERAL: This elderly averagely built white male who is pale and dyspneic. HEAD, EYES, EARS, NOSE, AND THROAT: Head normocephalic. Pupils reactive and equal. Tongue is moist. Nasal no mucosae masses. Throat is clear NECK: Supple. No bruits or thyroid enlargement or lymphadenopathy. CHEST: Equal movements with distant breath sounds with wheezes throughout both lung chen. Prolonged expirations.Occ Crackles HEART: The heart sounds are irregular S1-S2. No murmur, no S3. ABDOMEN: The abdomen is soft, benign. No masses or organomegaly or tenderness. Bowel sounds are active. EXTREMITIES: Mild varicosities decreased peripheral pulses. Reflexes are brisk with no gross motor deficits. NEUROLOGIC: Cranial nerves grossly intact. RECTUM: Rectal examination is deferred. SKIN: No lesions observed. Assessment and Plan Assessment and Plan IMPRESSION 1. He has acute on chronic respiratory failure. 2. 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 Anemia of chronic disease. 4. Atrial fibrillation and mild congestive heart failure. 5. Exogenous obesity and obstructive sleep apnea. 6. History of lung cancer status post right lower lobectomy. Plan : 1. O2 at 3 L. 2. Taper solumedrol 40 mg IV q8h. 3. Cont Antibiotics.Levaquin 4. Symbicort 160/4.5 mcg , 2puffs bid. 5. Bipap at HS 15/5 cm 6. Transfer to [facility] Erwin Willson MD July 22, 2016 18:50
[2016-07-22] MEDS ORDERED: methylPREDNISolone SOD SUCC 40 MG/1 ML VIAL IV PUSH SCH (20:00)
[2016-07-23] VITALS (13 sets, daily range): BP systolic 113–145; BP diastolic 55–81; PULSE 76–98; RESP 18–20; TEMP 97.3–98.6; O2SAT 91–100
[2016-07-23] MEDS: MORPHINE SULFATE 4 MG/ML INJ IV PUSH PRN (01:14)
[2016-07-23] MEDS: SODIUM CHLORIDE 0.9% FLUSH 10 ML FLUSH IV FLUSH PRN (01:14)
[2016-07-23] MEDS: RESP: IPRATROPIUM 0.5 MG/2.5 ML NEB NEB PRN (01:37)
[2016-07-23] MEDS: INSULIN NovoLIN REGULAR SUPPLEMENTAL SCALE SQ SCH ×4 (05:56→21:04)
--- NOTE | 2016-07-23 07:45 | HHI.PR ---
Subjective Remarks in no acute distress. on oxygen via N/C. afebrile. no other complaints. Objective Vitals Vital Signs Date Time Temp Pulse Resp B/P Pulse Ox O2 Delivery O2 Flow Rate FiO2 07/23/16 04:00 97.9 80 18 120/59 96 07/23/16 04:00 Nasal Cannula 3.00 Humidified 07/23/16 00:42 76 07/23/16 00:00 98.6 79 18 113/55 100 07/23/16 00:00 Nasal Cannula 3.00 Humidified 07/22/16 22:00 82 07/22/16 20:18 100 Nasal Cannula 3.00 07/22/16 20:00 97.8 81 26 119/56 100 07/22/16 20:00 81 07/22/16 18:00 91 07/22/16 16:00 98.3 90 19 117/71 100 07/22/16 16:00 90 07/22/16 14:00 90 07/22/16 12:00 98.2 100 22 107/61 93 07/22/16 12:00 100 07/22/16 10:00 94 07/22/16 08:00 97.0 90 20 128/62 100 07/22/16 08:00 90 07/22/16 07:43 92 Nasal Cannula 3.00 I/O 07/22/16 07/22/16 07/22/16 07/23/16 07/23/16 07/23/16 06:59 14:59 22:59 06:59 14:59 22:59 Intake Total 480 ml 810 ml 240 ml 240 ml Output Total 550 ml 400 ml 320 ml 200 ml Balance -70 ml 410 ml -80 ml 40 ml Intake Oral 480 ml 810 ml 240 ml 240 ml Output Urine Total 550 ml 400 ml 320 ml 200 ml # Bowel Movements 1 3 1 0 Result Diagram: 07/22/162 07/22/162 Imaging Last Impressions Chest X-Ray 07/16/16 0759 Signed Impressions: Service Date/Time: Saturday, July 16, 2016 16:39 - CONCLUSION: No acute disease. Antwan Reeves Jr., MD Objective Remarks GENERAL: This is a well-nourished, well-developed patient, in no apparent distress. CARDIOVASCULAR: Regular rate and regular rhythm without murmurs, gallops, or rubs. RESPIRATORY: diminished air entry bilaterally . GASTROINTESTINAL: Abdomen soft, non-tender, nondistended. Normal, active bowel sounds MUSCULOSKELETAL: Extremities with bilateral pedal edema. NEURO: Alert & Oriented x4 to person, place, time, situation. Moves all ext x4 Medications and IVs Current Medications Sodium Chloride (NS Flush) 2 ml UNSCH PRN IVF FLUSH AFTER USING IV ACCESS; Start 07/16/16 at 16:30; Stop 07/16/16 at 18:18; Status DC Furosemide (Lasix Inj) 40 mg ONCE ONCE IVP Last administered on 07/16/16 17: 33; Start 07/16/16 at 16:30; Stop 07/16/16 at 16:32; Status DC Methylprednisolone Sodium Succinate (SoluMEDROL INJ) 125 mg ONCE ONCE IVP Last administered on 07/16/16 17:32; Start 07/16/16 at 16:30; Stop 07/16/16 at 16:32; Status DC Albuterol/ Ipratropium (Duoneb Neb) 1 ampule Q15M INH Last administered on 07/16 16:45; Start 07/16/16 at 16:30; Stop 07/16/16 at 16:46; Status DC Morphine Sulfate (Morphine Inj) 4 mg ONCE ONCE IV PUSH Last administered on 17:29; Start 07/16/16 at 16:30; Stop 07/16/16 at 16:32; Status DC Ondansetron HCl (Zofran Inj) 4 mg ONCE ONCE IV PUSH Last administered on 17:33; Start 07/16/16 at 16:30; Stop 07/16/16 at 16:32; Status DC Amiodarone HCl (Cordarone) 200 mg DAILY PO Last administered on 07/22/16 08:38 ; Start 07/17/16 at 09:00 Apixaban (Eliquis) 5 mg BID PO Last administered on 07/22/16 20:08; Start at 21:00 Aspirin (Ecotrin Ec) 162 mg DAILY PO Last administered on 07/22/16 08:39; Start 07/17/16 at 09:00 Buspirone HCl (Buspar) 5 mg TID PO Last administered on 07/22/16 18:41; Start 07/17/16 at 09:00 Diltiazem HCl (Cardizem Cd) 360 mg DAILY PO Last administered on 07/22/16 08: 40; Start 07/17/16 at 09:00 Folic Acid (Folate) 1 mg DAILY PO Last administered on 07/22/16 08:39; Start 07/17/16 at 09:00 Furosemide (Lasix) 40 mg DAILY PO Last administered on 07/22/16 08:39; Start 07/17/16 at 09:00 Lisinopril (Prinivil) 10 mg DAILY PO Last administered on 07/22/16 08:39; Start 07/17/16 at 09:00 Nicotine (Habitrol 21 Mg Patch.24 Hr) 1 patch DAILY T-DERMAL Last administered on 07/22/16 08:40; Start 07/17/16 at 09:00 Pantoprazole Sodium (Protonix) 40 mg DAILY PO Last administered on 07/22/16 08 :39; Start 07/17/16 at 09:00 Prednisone (Deltasone) 40 mg DAILY PO ; Start 07/17/16 at 09:00; Stop 07/17/16 at 09:00; Status DC Thiamine HCl (Vitamin B1) 100 mg DAILY PO Last administered on 07/22/16 08:40 ; Start 07/17/16 at 09:00 Miscellaneous Information 1 1 DAILY T-DERMAL Last administered on 07/22/16 08: 40; Start 07/17/16 at 09:00 Sodium Chloride (NS 1000 ml Inj) 1,000 ml @ 83 mls/hr Q12H3M IV Last administered on 07/18/16 05:25; Start 07/16/16 at 18:30; Stop 07/18/16 at 12:57 ; Status DC Sodium Chloride (NS Flush) 2 ml UNSCH PRN IV FLUSH FLUSH AFTER USING IV ACCESS Last administered on 07/23/16 01:14; Start 07/16/16 at 18:15 Sodium Chloride (NS Flush) 2 ml BID IV FLUSH Last administered on 07/22/16 20: 05; Start 07/16/16 at 21:00 Acetaminophen (Tylenol) 650 mg Q4H PRN PO TEMP > 100.4; Start 07/16/16 at 18:15 Ondansetron HCl (Zofran Inj) 4 mg Q6H PRN IVP NAUSEA OR VOMITING Last administered on 07/22/16 18:41; Start 07/16/16 at 18:15 Bisacodyl (Dulcolax Supp) 10 mg DAILY PRN RECTAL CONSTIPATION; Start 07/16/16 at 18:15 Docusate Sodium (Colace) 100 mg Q12H PO Last administered on 07/22/16 20:08; Start 07/16/16 at 20:00 Naloxone HCl (Narcan Inj) 0.4 mg UNSCH PRN IV SEE LABEL COMMENTS; Start at 18:15 Albuterol/ Ipratropium (Duoneb Neb) 1 ampule Q4HR NEB NEB Last administered on 07/20/16 19:43; Start 07/16/16 at 20:00; Stop 07/20/16 at 20:00; Status DC Guaifenesin (Mucinex Er) 600 mg BID PO Last administered on 07/22/16 20:08; Start 07/16/16 at 21:00 Budesonide (Pulmicort Respule Neb) 0.5 mg Q12HR NEB NEB Last administered on 20:16; Start 07/16/16 at 20:00 Methylprednisolone Sodium Succinate (SoluMEDROL INJ) 40 mg Q6HR IV PUSH Last administered on 07/22/16 11:04; Start 07/16/16 at 18:45; Stop 07/22/16 at 11:15 ; Status DC Miscellaneous Information Patient in critical care unit? Ass... Q361D .XX ; Start 07/16/16 at 23:15 Chlorhexidine Gluconate (Chlorhexidine 2% Cloth) 3 pack DAILY@04 TOPICAL Last administered on 07/21/16 04:00; Start 07/17/16 at 04:00; Stop 07/21/16 at 04:01 ; Status DC Chlorhexidine Gluconate (Chlorhexidine 2% Cloth) 3 pack UNSCH PRN TOPICAL HYGIENIC CARE; Start 07/16/16 at 23:15; Stop 07/21/16 at 23:14; Status DC Sodium Polystyrene Sulfonate (Kayexalate Liq) 15 gm ONCE ONCE PO Last administered on 07/17/16 09:15; Start 07/17/16 at 08:30; Stop 07/17/16 at 08:39 ; Status DC Metoprolol Tartrate (Lopressor Inj) 5 mg ONCE ONCE IV PUSH Last administered on 07/17/16 15:07; Start 07/17/16 at 14:15; Stop 07/17/16 at 14:16; Status DC Insulin Human Regular (NovoLIN R SUPPLEMENTAL SCALE) 1 ACHS SLIDING SCALE SQ Last administered on 07/22/16 20:07; Start 07/17/16 at 16:00 Ipratropium [place] (Atrovent Neb) 0.5 mg Q2HR NEB PRN NEB wheezing Last administered on 07/23/16 01:37; Start 07/18/16 at 06:45 Furosemide (Lasix Inj) 40 mg ONCE ONCE IV PUSH Last administered on 07/18/16 13:23; Start 07/18/16 at 13:00; Stop 07/18/16 at 13:03; Status DC Morphine Sulfate (Morphine Inj) 1 mg Q4H PRN IV PUSH SHORTNESS OF BREATH Last administered on 07/23/16 01:14; Start 07/18/16 at 14:45 Metoprolol Tartrate (Lopressor Inj) 5 mg ONCE ONCE IV PUSH ; Start 07/18/16 at 17:30; Stop 07/18/16 at 17:30; Status DC Metoprolol Tartrate (Lopressor Inj) 5 mg ONCE ONCE IV PUSH Last administered on 07/18/16 18:03; Start 07/18/16 at 18:30; Stop 07/18/16 at 18:31; Status DC Metoprolol Succinate (Toprol Xl) 12.5 mg DAILY PO Last administered on 08:39; Start 07/19/16 at 18:00 Miscellaneous (Pill Splitter) 1 ea UNSCH PRN OTHER SEE LABEL COMMENTS; Start at 18:00 Alprazolam (Xanax) 0.25 mg Q4H PRN PO MILD ANXIETY Last administered on 23:35; Start 07/19/16 at 20:15 Levofloxacin (Levaquin) 500 mg DAILY PO Last administered on 07/22/16 08:39; Start 07/20/16 at 09:00 Albuterol/ Ipratropium (Duoneb Neb) 1 ampule QID NEB NEB Last administered on 07/22/16 20:16; Start 07/21/16 at 10:00 Methylprednisolone Sodium Succinate (SoluMEDROL INJ) 40 mg Q8H IV PUSH ; Start 07/22/16 at 20:00; Stop 07/22/16 at 20:00; Status DC Lorazepam (Ativan Inj) 0.5 mg STAT STAT IV PUSH Last administered on 16:04; Start 07/22/16 at 15:52; Stop 07/22/16 at 15:53; Status DC Methylprednisolone Sodium Succinate (SoluMEDROL INJ) 40 mg BID IV PUSH ; Start 07/23/16 at 09:00 A/P Assessment and Plan A/P 1. Acute on chronic respiratory Failure, has chronic Respiratory acidosis and Metabolic Alkalosis, secondary to COPD exacerbation - improving. on BiPAP PRN, on Nasal cannula. will continue Steroids and neb treatment. pulmonary following. walk test today. 2. COPD exacerbation Bronchodilator, Mucolytic and incentive spirometry. Steroids. on nasal cannula. Pulmonary following. Added Levaquin 500 mg daily. 3. Tobacco dependence Strongly recommended to stop smoking, continue Nicotine patch. 4. Atrial Fibrillation -. continue Home medicines, on BB, amiodarone and eliquis. 5. OA by history 6. Obesity strongly recommended diet and exercise. as outpatient PT bhargav. 7. Testicular and Lung cancer history. 8. MAGO by history. DVT prophylaxis with Apixaban Discharge Planning walk test today. expected to be discharged within the next one-two days if stable. Sherly Marinelli MD July 23, 2016 07:45
[2016-07-23] MEDS: RESP: BUDESONIDE 0.5 MG/2 ML NEB NEB SCH ×2 (08:07→19:19)
[2016-07-23] MEDS: RESP: ALBUTEROL 2.5 MG/IPRATROPIUM 0.5 MG NEB (SCH) NEB ×4 (08:07→19:19)
[2016-07-23] MEDS: REMOVE OLD PATCH T-DERMAL SCH (09:00)
[2016-07-23] MEDS ORDERED: methylPREDNISolone SOD SUCC 40 MG/1 ML VIAL IV PUSH SCH (09:00)
[2016-07-23] MEDS: NICOTINE 21 MG/24 HR PATCH T-DERMAL SCH (09:01)
[2016-07-23] MEDS: APIXABAN 5 MG TABLET PO SCH ×2 (09:01→20:56)
[2016-07-23] MEDS: guaiFENesin E.R. 600 MG TAB PO SCH ×2 (09:02→20:56)
[2016-07-23] MEDS: LEVOFLOXACIN 500 MG TAB PO SCH (09:02)
[2016-07-23] MEDS: DILTIAZEM-CD 180 MG CAP ER PO SCH (09:02)
[2016-07-23] MEDS: PANTOPRAZOLE SOD 40 MG DELAYED RELEASE TAB PO SCH (09:02)
[2016-07-23] MEDS: AMIODARONE 200 MG TAB PO SCH (09:03)
[2016-07-23] MEDS: LISINOPRIL 10 MG TAB PO SCH (09:03)
[2016-07-23] MEDS: DOCUSATE SODIUM 100 MG CAP PO SCH ×2 (09:03→20:56)
[2016-07-23] MEDS: FOLIC ACID 1 MG TAB PO SCH (09:03)
[2016-07-23] MEDS: busPIRone HCL 5 MG TAB PO SCH ×3 (09:03→17:11)
[2016-07-23] MEDS: THIAMINE HCL 100 MG TAB PO SCH (09:03)
[2016-07-23] MEDS: FUROSEMIDE 40 MG TAB PO SCH (09:04)
[2016-07-23] MEDS: METOPROLOL SUCCINATE 25 MG EXTENDED RELEASE TAB PO SCH (09:04)
[2016-07-23] MEDS: ASPIRIN EC 81 MG TABEC PO SCH (09:04)
[2016-07-23] MEDS: SODIUM CHLORIDE 0.9% FLUSH 10 ML FLUSH IV FLUSH SCH ×2 (09:06→20:57)
[2016-07-23] MEDS ORDERED: OXYGENTANK NAS.CANULA (16:38)
--- NOTE | 2016-07-23 20:37 | HHI.PR ---
Subjective Remarks Feels better . O2 sat 95 on 3 L. Less wheezing, no fever. Needs home O2. walks with help Objective Vital Signs Date Time Temp Pulse Resp B/P Pulse Ox O2 Delivery O2 Flow Rate FiO2 07/23/16 19:40 91 35 07/23/16 16:00 98.1 83 20 131/65 95 07/23/16 15:14 91 Nasal Cannula 3.00 07/23/16 12:00 97.5 97 20 145/59 94 07/23/16 08:30 97 35 07/23/16 08:11 97 Nasal Cannula 3.00 07/23/16 08:00 89 07/23/16 08:00 97.9 91 20 125/63 99 07/23/16 08:00 Bi-Pap 07/23/16 04:00 97.9 80 18 120/59 96 07/23/16 04:00 Nasal Cannula 3.00 Humidified 07/23/16 00:42 76 07/23/16 00:00 98.6 79 18 113/55 100 07/23/16 00:00 Nasal Cannula 3.00 Humidified 07/22/16 22:00 82 I/O 07/22/16 07/22/16 07/22/16 07/23/16 07/23/16 07/23/16 07:00 15:00 23:00 07:00 15:00 23:00 Intake Total 480 ml 810 ml 240 ml 240 ml 480 ml 240 ml Output Total 550 ml 400 ml 320 ml 200 ml 1500 ml Balance -70 ml 410 ml -80 ml 40 ml -1020 ml 240 ml Intake Oral 480 ml 810 ml 240 ml 240 ml 480 ml 240 ml Output Urine Total 550 ml 400 ml 320 ml 200 ml 1500 ml # Voids 1 # Bowel Movements 1 3 1 0 Result Diagram: 07/22/162 07/22/16 0442 Procedures BiPAP Objective Remarks IN GENERAL: This elderly averagely built white male who is pale and in no distress HEAD, EYES, EARS, NOSE, AND THROAT: Head normocephalic. Pupils reactive and equal. Tongue is moist. Nasal no mucosae masses. Throat is clear NECK: Supple. No bruits or thyroid enlargement or lymphadenopathy. CHEST: Equal movements with distant breath sounds with wheezes throughout both lung chen. Prolonged expirations.Occ Crackles HEART: The heart sounds are irregular S1-S2. No murmur, no S3. ABDOMEN: The abdomen is soft, benign. No masses or organomegaly or tenderness. Bowel sounds are active. EXTREMITIES: Mild varicosities decreased peripheral pulses. Reflexes are brisk with no gross motor deficits. NEUROLOGIC: Cranial nerves grossly intact. RECTUM: Rectal examination is deferred. SKIN: No lesions observed. Assessment and Plan Assessment and Plan IMPRESSION 1. He has acute on chronic respiratory failure. 2. 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 Anemia of chronic disease. 4. Atrial fibrillation and mild congestive heart failure. 5. Exogenous obesity and obstructive sleep apnea. 6. History of lung cancer status post right lower lobectomy. Plan : 1. O2 at 3 L. 2. D/C solumedrol 3. Cont Antibiotics.Levaquin 4. Symbicort 160/4.5 mcg , 2puffs bid. 5. Bipap at HS 12/5 cm ,FIo2 30 % 6. Add prednisone 20 mg bid 7. Transfer to rehab soon Erwin Willson MD July 23, 2016 20:37
[2016-07-23] MEDS: predniSONE 20 MG TAB PO SCH (20:56)
[2016-07-23] MEDS: ALPRAZolam 0.25 MG TAB PO PRN (22:43)
[2016-07-24 00:45] VITALS: O2SAT 99
[2016-07-24 05:10] VITALS: BP 157/74; PULSE 96; RESP 20; TEMP 97.2; O2SAT 97
[2016-07-24] MEDS: RESP: IPRATROPIUM 0.5 MG/2.5 ML NEB NEB PRN (06:04)
[2016-07-24 06:07] VITALS: O2SAT 99
[2016-07-24] MEDS: INSULIN NovoLIN REGULAR SUPPLEMENTAL SCALE SQ SCH ×2 (06:27→11:00)
[2016-07-24 08:00] VITALS: BP 150/74; PULSE 95; PULSE 96; RESP 18; TEMP 98; O2SAT 93
[2016-07-24 08:20] VITALS: O2SAT 99
[2016-07-24] MEDS: RESP: ALBUTEROL 2.5 MG/IPRATROPIUM 0.5 MG NEB (SCH) NEB ×2 (08:20→12:18)
[2016-07-24] MEDS: RESP: BUDESONIDE 0.5 MG/2 ML NEB NEB SCH (08:20)
[2016-07-24] MEDS: APIXABAN 5 MG TABLET PO SCH (08:33)
[2016-07-24] MEDS: ASPIRIN EC 81 MG TABEC PO SCH (08:33)
[2016-07-24] MEDS: NICOTINE 21 MG/24 HR PATCH T-DERMAL SCH (08:33)
[2016-07-24] MEDS: FOLIC ACID 1 MG TAB PO SCH (08:33)
[2016-07-24] MEDS: guaiFENesin E.R. 600 MG TAB PO SCH (08:34)
[2016-07-24] MEDS: METOPROLOL SUCCINATE 25 MG EXTENDED RELEASE TAB PO SCH (08:34)
[2016-07-24] MEDS: LEVOFLOXACIN 500 MG TAB PO SCH (08:34)
[2016-07-24] MEDS: busPIRone HCL 5 MG TAB PO SCH ×2 (08:34→12:42)
[2016-07-24] MEDS: AMIODARONE 200 MG TAB PO SCH (08:34)
[2016-07-24] MEDS: PANTOPRAZOLE SOD 40 MG DELAYED RELEASE TAB PO SCH (08:34)
[2016-07-24] MEDS: DOCUSATE SODIUM 100 MG CAP PO SCH (08:34)
[2016-07-24] MEDS: predniSONE 20 MG TAB PO SCH (08:34)
[2016-07-24] MEDS: FUROSEMIDE 40 MG TAB PO SCH (08:34)
[2016-07-24] MEDS: LISINOPRIL 10 MG TAB PO SCH (08:34)
[2016-07-24] MEDS: THIAMINE HCL 100 MG TAB PO SCH (08:35)
[2016-07-24] MEDS: DILTIAZEM-CD 180 MG CAP ER PO SCH (08:35)
[2016-07-24] MEDS: REMOVE OLD PATCH T-DERMAL SCH (08:35)
[2016-07-24] MEDS: SODIUM CHLORIDE 0.9% FLUSH 10 ML FLUSH IV FLUSH SCH (08:36)
--- NOTE | 2016-07-24 10:25 | HHI.PR ---
Subjective Remarks sitting comfortably with no distress. much more comfortable. no new complaints. no fever. Objective Vitals Vital Signs Date Time Temp Pulse Resp B/P Pulse Ox O2 Delivery O2 Flow Rate FiO2 07/24/16 08:20 99 Nasal Cannula 3.00 07/24/16 08:00 96 07/24/16 08:00 98.0 95 18 150/74 93 07/24/16 08:00 Nasal Cannula 3.00 Humidified 07/24/16 06:07 99 Nasal Cannula 3.00 07/24/16 05:10 97.2 96 20 157/74 97 07/24/16 00:45 99 35 07/23/16 23:10 98.1 89 18 126/81 94 07/23/16 21:14 Nasal Cannula 3.00 Humidified 07/23/16 19:55 96 07/23/16 19:40 91 35 07/23/16 19:35 97.3 98 18 138/74 100 07/23/16 16:00 98.1 83 20 131/65 95 07/23/16 15:14 91 Nasal Cannula 3.00 07/23/16 12:00 97.5 97 20 145/59 94 I/O 07/23/16 07/23/16 07/23/16 07/24/16 07/24/16 07/24/16 07:00 15:00 23:00 07:00 15:00 23:00 Intake Total 240 ml 480 ml 480 ml 480 ml Output Total 200 ml 1500 ml 200 ml 550 ml Balance 40 ml -1020 ml 280 ml -70 ml Intake Oral 240 ml 480 ml 480 ml 480 ml Output Urine Total 200 ml 1500 ml 200 ml 550 ml # Voids 1 # Bowel Movements 0 1 0 Result Diagram: 07/22/16 0442 07/22/16 0442 Imaging Last Impressions Chest X-Ray 07/16/16 1629 Signed Impressions: Service Date/Time: Saturday, July 16, 2016 16:39 - CONCLUSION: No acute disease. Antwan Reeves Jr., MD Objective Remarks GENERAL: This is a well-nourished, well-developed patient, in no apparent distress. CARDIOVASCULAR: Regular rate and regular rhythm without murmurs, gallops, or rubs. RESPIRATORY: diminished air entry bilaterally . GASTROINTESTINAL: Abdomen soft, non-tender, nondistended. Normal, active bowel sounds MUSCULOSKELETAL: Extremities with bilateral pedal edema. NEURO: Alert & Oriented x4 to person, place, time, situation. Moves all ext x4 Procedures none Medications and IVs Current Medications Sodium Chloride (NS Flush) 2 ml UNSCH PRN IVF FLUSH AFTER USING IV ACCESS; Start 07/16/16 at 16:30; Stop 07/16/16 at 18:18; Status DC Furosemide (Lasix Inj) 40 mg ONCE ONCE IVP Last administered on 07/16/16 17: 33; Start 07/16/16 at 16:30; Stop 07/16/16 at 16:32; Status DC Methylprednisolone Sodium Succinate (SoluMEDROL INJ) 125 mg ONCE ONCE IVP Last administered on 07/16/16 17:32; Start 07/16/16 at 16:30; Stop 07/16/16 at 16:32; Status DC Albuterol/ Ipratropium (Duoneb Neb) 1 ampule Q15M INH Last administered on 07/16 16:45; Start 07/16/16 at 16:30; Stop 07/16/16 at 16:46; Status DC Morphine Sulfate (Morphine Inj) 4 mg ONCE ONCE IV PUSH Last administered on 17:29; Start 07/16/16 at 16:30; Stop 07/16/16 at 16:32; Status DC Ondansetron HCl (Zofran Inj) 4 mg ONCE ONCE IV PUSH Last administered on 17:33; Start 07/16/16 at 16:30; Stop 07/16/16 at 16:32; Status DC Amiodarone HCl (Cordarone) 200 mg DAILY PO Last administered on 07/24/16 08:34 ; Start 07/17/16 at 09:00 Apixaban (Eliquis) 5 mg BID PO Last administered on 07/24/16 08:33; Start at 21:00 Aspirin (Ecotrin Ec) 162 mg DAILY PO Last administered on 07/24/16 08:33; Start 07/17/16 at 09:00 Buspirone HCl (Buspar) 5 mg TID PO Last administered on 07/24/16 08:34; Start 07/17/16 at 09:00 Diltiazem HCl (Cardizem Cd) 360 mg DAILY PO Last administered on 07/24/16 08: 35; Start 07/17/16 at 09:00 Folic Acid (Folate) 1 mg DAILY PO Last administered on 07/24/16 08:33; Start 07/17/16 at 09:00 Furosemide (Lasix) 40 mg DAILY PO Last administered on 07/24/16 08:34; Start 07/17/16 at 09:00 Lisinopril (Prinivil) 10 mg DAILY PO Last administered on 07/24/16 08:34; Start 07/17/16 at 09:00 Nicotine (Habitrol 21 Mg Patch.24 Hr) 1 patch DAILY T-DERMAL Last administered on 07/24/16 08:33; Start 07/17/16 at 09:00 Pantoprazole Sodium (Protonix) 40 mg DAILY PO Last administered on 07/24/16 08 :34; Start 07/17/16 at 09:00 Prednisone (Deltasone) 40 mg DAILY PO ; Start 07/17/16 at 09:00; Stop 07/17/16 at 09:00; Status DC Thiamine HCl (Vitamin B1) 100 mg DAILY PO Last administered on 07/24/16 08:35 ; Start 07/17/16 at 09:00 Miscellaneous Information 1 1 DAILY T-DERMAL Last administered on 07/24/16 08: 35; Start 07/17/16 at 09:00 Sodium Chloride (NS 1000 ml Inj) 1,000 ml @ 83 mls/hr Q12H3M IV Last administered on 07/18/16 05:25; Start 07/16/16 at 18:30; Stop 07/18/16 at 12:57 ; Status DC Sodium Chloride (NS Flush) 2 ml UNSCH PRN IV FLUSH FLUSH AFTER USING IV ACCESS Last administered on 07/23/16 01:14; Start 07/16/16 at 18:15 Sodium Chloride (NS Flush) 2 ml BID IV FLUSH Last administered on 07/24/16 08: 36; Start 07/16/16 at 21:00 Acetaminophen (Tylenol) 650 mg Q4H PRN PO TEMP > 100.4; Start 07/16/16 at 18:15 Ondansetron HCl (Zofran Inj) 4 mg Q6H PRN IVP NAUSEA OR VOMITING Last administered on 07/22/16 18:41; Start 07/16/16 at 18:15 Bisacodyl (Dulcolax Supp) 10 mg DAILY PRN RECTAL CONSTIPATION; Start 07/16/16 at 18:15 Docusate Sodium (Colace) 100 mg Q12H PO Last administered on 07/24/16 08:34; Start 07/16/16 at 20:00 Naloxone HCl (Narcan Inj) 0.4 mg UNSCH PRN IV SEE LABEL COMMENTS; Start at 18:15 Albuterol/ Ipratropium (Duoneb Neb) 1 ampule Q4HR NEB NEB Last administered on 07/20/16 19:43; Start 07/16/16 at 20:00; Stop 07/20/16 at 20:00; Status DC Guaifenesin (Mucinex Er) 600 mg BID PO Last administered on 07/24/16 08:34; Start 07/16/16 at 21:00 Budesonide (Pulmicort Respule Neb) 0.5 mg Q12HR NEB NEB Last administered on 08:20; Start 07/16/16 at 20:00 Methylprednisolone Sodium Succinate (SoluMEDROL INJ) 40 mg Q6HR IV PUSH Last administered on 07/22/16 11:04; Start 07/16/16 at 18:45; Stop 07/22/16 at 11:15 ; Status DC Miscellaneous Information Patient in critical care unit? Ass... [id number] .[id number] ; Start 07/16/16 at 23:15 Chlorhexidine Gluconate (Chlorhexidine 2% Cloth) 3 pack DAILY@04 TOPICAL Last administered on 07/21/16 04:00; Start 07/17/16 at 04:00; Stop 07/21/16 at 04:01 ; Status DC Chlorhexidine Gluconate (Chlorhexidine 2% Cloth) 3 pack UNSCH PRN TOPICAL HYGIENIC CARE; Start 07/16/16 at 23:15; Stop 07/21/16 at 23:14; Status DC Sodium Polystyrene Sulfonate (Kayexalate Liq) 15 gm ONCE ONCE PO Last administered on 07/17/16 09:15; Start 07/17/16 at 08:30; Stop 07/17/16 at 08:39 ; Status DC Metoprolol Tartrate (Lopressor Inj) 5 mg ONCE ONCE IV PUSH Last administered on 07/17/16 15:07; Start 07/17/16 at 14:15; Stop 07/17/16 at 14:16; Status DC Insulin Human Regular (NovoLIN R SUPPLEMENTAL SCALE) 1 ACHS SLIDING SCALE SQ Last administered on 07/24/16 06:27; Start 07/17/16 at 16:00 Ipratropium [place] (Atrovent Neb) 0.5 mg Q2HR NEB PRN NEB wheezing Last administered on 07/24/16 06:04; Start 07/18/16 at 06:45 Furosemide (Lasix Inj) 40 mg ONCE ONCE IV PUSH Last administered on 07/18/16 13:23; Start 07/18/16 at 13:00; Stop 07/18/16 at 13:03; Status DC Morphine Sulfate (Morphine Inj) 1 mg Q4H PRN IV PUSH SHORTNESS OF BREATH Last administered on 07/23/16 01:14; Start 07/18/16 at 14:45 Metoprolol Tartrate (Lopressor Inj) 5 mg ONCE ONCE IV PUSH ; Start 07/18/16 at 17:30; Stop 07/18/16 at 17:30; Status DC Metoprolol Tartrate (Lopressor Inj) 5 mg ONCE ONCE IV PUSH Last administered on 07/18/16 18:03; Start 07/18/16 at 18:30; Stop 07/18/16 at 18:31; Status DC Metoprolol Succinate (Toprol Xl) 12.5 mg DAILY PO Last administered on 08:34; Start 07/19/16 at 18:00 Miscellaneous (Pill Splitter) 1 ea UNSCH PRN OTHER SEE LABEL COMMENTS; Start at 18:00 Alprazolam (Xanax) 0.25 mg Q4H PRN PO MILD ANXIETY Last administered on 22:43; Start 07/19/16 at 20:15 Levofloxacin (Levaquin) 500 mg DAILY PO Last administered on 07/24/16 08:34; Start 07/20/16 at 09:00 Albuterol/ Ipratropium (Duoneb Neb) 1 ampule QID NEB NEB Last administered on 07/24/16 08:20; Start 07/21/16 at 10:00 Methylprednisolone Sodium Succinate (SoluMEDROL INJ) 40 mg Q8H IV PUSH ; Start 07/22/16 at 20:00; Stop 07/22/16 at 20:00; Status DC Lorazepam (Ativan Inj) 0.5 mg STAT STAT IV PUSH Last administered on 16:04; Start 07/22/16 at 15:52; Stop 07/22/16 at 15:53; Status DC Methylprednisolone Sodium Succinate (SoluMEDROL INJ) 40 mg BID IV PUSH Last administered on 07/23/16 09:06; Start 07/23/16 at 09:00; Stop 07/23/16 at 20:34 ; Status DC Prednisone (Deltasone) 20 mg BID PO Last administered on 07/24/16 08:34; Start 07/23/16 at 21:00 A/P Assessment and Plan A/P 1. Acute on chronic respiratory Failure, has chronic Respiratory acidosis and Metabolic Alkalosis, secondary to COPD exacerbation - improving. on Nasal cannula. will continue Steroids and neb treatment. pulmonary follow -up appreciated. failed the walk test; needs home oxygen; case management consulted. 2. COPD exacerbation Bronchodilator, Mucolytic and incentive spirometry. Steroids. on nasal cannula. Pulmonary following. Added Levaquin 500 mg daily. 3. Tobacco dependence Strongly recommended to stop smoking. 4. Atrial Fibrillation -. continue Home medicines, on BB, amiodarone and eliquis. 5. OA by history 6. Obesity strongly recommended diet and exercise. as outpatient PT eval. 7. Testicular and Lung cancer history. 8. MAGO by history. DVT prophylaxis with Apixaban Discharge Planning dc home with [facility] when home oxygen has been arranged. see med list. f/u; pcp and pulmonary. d/w the patient. d/w the case management. time spent 35 min. Sherly Marinelli MD July 24, 2016 10:25
[2016-07-24] MEDS ORDERED: LEVA500T PO (10:26)
--- NOTE | 2016-07-24 10:27 | HHI.DCPOC ---
Discharge Care Plan Diagnosis: (1) COPD exacerbation Your Health Problems Are: Cough Shortness of Breath Goals to Promote Your Health * To prevent worsening of your condition and complications * To maintain your health at the optimal level Directions to Meet Your Goals Take your medications as prescribed Follow your dietary instruction Follow activity as directed Keep your appointments as scheduled Take your immunizations and boosters as scheduled If your symptoms worsen call your PCP, if no PCP go to Urgent Care Center or Emergency Room Smoking is Dangerous to Your Health. Avoid second hand smoke Call the 24-hour hour crisis hotline for domestic abuse at Sherly Marinelli MD July 24, 2016 10:27
--- NOTE | 2016-07-24 10:28 | HHI.DS ---
Discharge Summary Admission Date July 16, 2016 at 18:30 Discharge Date: July 24, 2016 Admitting Diagnosis respiratory failure (1) COPD exacerbation ICD Code: J44.1 Diagnosis: Principal (2) Respiratory insufficiency ICD Code: R06.89 Diagnosis: Principal Procedures none Brief History - From Admission The patient is a 71 year-old male who presents to the emergency department for shortness of breath. The patient states any increasing shortness of breath for the last 2-3 days and subsequently called EMS. EMS states when they arrived the patient was somewhat hypoxic, had an elevated respiratory rate in the 30s, therefore, was placed on DuoNeb's. The patient does have a history of COPD as well as congestive heart failure. The patient has increasing shortness breath or last several days without any chest pain. He does complain of mild orthopnea as well as dyspnea upon exertion. He also complains of edema to lower extremities bilaterally. He denies any known history of pulmonary embolism or DVT. The patient's primary physician is at the [facility]. Symptoms are moderate, progressing, minimally alleviated with DuoNeb's. Seen in Emergency Room in the presence of Doctor Yasmin on BiPAP he will go to [facility] and is improving fast on BiPAP. not able to answer well our questions. CBC/BMP: 07/22/16 0442 07/22/16 0442 Significant Findings Laboratory Tests Test 07/22/16 04:42 Red Blood Count 3.30 MIL/MM3 (4.50-5.90) Hemoglobin 10.3 GM/DL (13.0-17.0) Hematocrit 30.7 % (39.0-51.0) Red Cell Distribution Width 17.5 % (11.6-17.2) Neutrophils (%) (Auto) 95.3 % (16.0-70.0) Lymphocytes (%) (Auto) 1.0 % (9.0-44.0) Neutrophils # (Auto) 8.3 TH/MM3 (1.8-7.7) Lymphocytes # (Auto) 0.1 TH/MM3 (1.0-4.8) Chloride Level 95 MEQ/L (98-107) Carbon Dioxide Level 41.6 MEQ/L (21.0-32.0) Anion Gap 4 MEQ/L (5-15) Blood Urea Nitrogen 33 MG/DL (7-18) Estimat Glomerular Filtration 82 ML/MIN (>89) Rate Random Glucose 143 MG/DL (74-106) Imaging Last Impressions Chest X-Ray 07/16/16 1929 Signed Impressions: Service Date/Time: Saturday, July 16, 2016 16:39 - CONCLUSION: No acute disease. Antwan Reeves Jr., MD PE at Discharge GENERAL: This is a well-nourished, well-developed patient, in no apparent distress. CARDIOVASCULAR: Regular rate and regular rhythm without murmurs, gallops, or rubs. RESPIRATORY: diminished air entry bilaterally . GASTROINTESTINAL: Abdomen soft, non-tender, nondistended. Normal, active bowel sounds MUSCULOSKELETAL: Extremities with bilateral pedal edema. NEURO: Alert & Oriented x4 to person, place, time, situation. Moves all ext x4 Hospital Course 1. Acute on chronic respiratory Failure, has chronic Respiratory acidosis and Metabolic Alkalosis, secondary to COPD exacerbation - improving. on Nasal cannula. will continue Steroids and neb treatment. pulmonary follow -up appreciated. failed the walk test; needs home oxygen; case management consulted. 2. COPD exacerbation Bronchodilator, Mucolytic and incentive spirometry. Steroids. on nasal cannula. Pulmonary following. Added Levaquin 500 mg daily. 3. Tobacco dependence Strongly recommended to stop smoking. 4. Atrial Fibrillation -. continue Home medicines, on BB, amiodarone and eliquis. 5. OA by history 6. Obesity strongly recommended diet and exercise. as outpatient PT eval. 7. Testicular and Lung cancer history. 8. MAGO by history. DVT prophylaxis with Apixaban Pt Condition on Discharge: Fair Discharge Disposition: Disch w/ Home Health Serv Discharge Time: > 30 minutes Discharge Instructions DIET: Follow Instructions for: Heart Healthy Diet Activities you can perform: Regular-No Restrictions Follow up Referrals: PCP Follow-up Pulmonology New Medications: Oxygen tank (Oxygen tank) 1 Ea Tank 2 LITER CHRISTIANNE.CANULA CONTINUOUS Oxygen Concentrator Portable Gaseous 2 L/min via Nasal Cannula Continuous For 99 months HYPOXEMIA PREVENTION #3 CYLINDER Levofloxacin (Levaquin) 500 Mg Tab 500 MG PO DAILY copd Days 5 TAB Continued Medications: Acetaminophen (Tylenol) 325 Mg Tab 650 MG PO Q4H PRN PAIN 1-10 AND/OR FEVER >101F Ref 0 TAB Albuterol Neb (Albuterol Neb) 2.5 Mg/3 Ml Neb 2.5 MG INH Q4HR NEB PRN WHEEZING, SOB #30 NEBULE Amiodarone (Amiodarone) 200 Mg Tab 200 MG PO DAILY #30 TAB Apixaban (Eliquis) 5 Mg Tab 5 MG PO BID #[address] (Aspirin EC Low Dose) 81 Mg Tabec 162 MG PO DAILY #30 TAB Budesonide-Formoterol Inh (Symbicort Inh) 160-4.5 Mcg/Act Aero 2 PUFF INH Q12HR #1 Ref 0 INHALER Buspirone (Buspirone) 5 Mg Tab 5 MG PO TID Anxiety #90 Ref 0 TAB Diltiazem CD 24 HR (Cardizem CD 24 HR) 180 Mg Caper 360 MG PO DAILY #30 CAP Folic Acid (Folate) 1 Mg Tab 1 MG PO DAILY Nutritional Supplement #30 Ref 0 TAB Furosemide (Furosemide) 40 Mg Tab 40 MG PO DAILY #30 TAB Guaifenesin Liq (Guaifenesin Liq) 100 mg/5 ML Soln 200 MG PO QID PRN Cough #1 Ref 0 BOTTLE Ipratropium-Albuterol Neb (Duoneb) 0.5-2.5 Mg/3 Ml Neb 1 AMPULE INH Q6HR WHILE AWAKE NEB PRN SOB/WHEEZING #1 UNITS Lisinopril (Lisinopril) 10 Mg Tab 10 MG PO DAILY #30 Ref 0 TAB Multiple Vitamins W/ Minerals (Multi Vitamin and Mineral) 1 Tab Tab 1 TAB PO DAILY #30 TAB Nicotine Patch (Nicotine Patch) 21 Mg/24 Hr Patch 21 MG T-DERMAL DAILY Smoking Cessation #30 Ref 0 PATCH Pantoprazole (Pantoprazole) 40 Mg Tab 40 MG PO DAILY #30 TAB Thiamine (Thiamine) 100 Mg Tab 100 MG PO DAILY Nutritional Supplement #30 Ref 0 TAB Tiotropium Inh (Spiriva Handihaler) 18 Mcg Cap 1 PUFF INH DAILY 1 capsule = 18 mcg COPD #30 Ref 0 CAP Discontinued Medications: Azithromycin (Zithromax) 250 Mg Tab 250 MG PO DAILY #1 TAB Cefuroxime (Cefuroxime) 500 Mg Tab 500 MG PO BID Infection #2 Ref 0 TAB Prednisone (Prednisone) 20 Mg Tab 40 MG PO DAILY #20 TAB Sherly Marinelli MD July 24, 2016 10:28
[2016-07-24] MEDS ORDERED: PRED5TAB PO (10:30)
--- NOTE | 2016-07-24 10:32 | HHI.FF ---
Face to Face Verification Diagnosis: (1) COPD exacerbation Physical Therapy Order: Evaluate and Treat Home Health Nursing Order: Medical education Signs/symptoms of disease process Oxygen administration education Nursing assessment with vital signs I have seen patient Scottie Elliott on 07/24/16. My clinical findings support the need for the requested home health care services because: Ltd mobility - disease progression Patient has SOB I certify that my clinical findings support that this patient is homebound because: Hx COPD- exertion dyspnea/weakness Sherly Marinelli MD July 24, 2016 10:32
[2016-07-24 12:00] VITALS: BP 131/66; PULSE 111; RESP 22; TEMP 98.4; O2SAT 97
[2016-07-24] MEDS: ALPRAZolam 0.25 MG TAB PO PRN (12:42)
--- NOTE | 2016-07-24 13:01 | HHI.PR ---
Subjective Remarks Feels better . O2 sat 96 on 3 L. No wheezing, no fever. Needs home O2. walks with help Objective Vital Signs Date Time Temp Pulse Resp B/P Pulse Ox O2 Delivery O2 Flow Rate FiO2 07/24/16 12:00 98.4 111 22 131/66 97 07/24/16 08:20 99 Nasal Cannula 3.00 07/24/16 08:00 96 07/24/16 08:00 98.0 95 18 150/74 93 07/24/16 08:00 Nasal Cannula 3.00 Humidified 07/24/16 06:07 99 Nasal Cannula 3.00 07/24/16 05:10 97.2 96 20 157/74 97 07/24/16 00:45 99 35 07/23/16 23:10 98.1 89 18 126/81 94 07/23/16 21:14 Nasal Cannula 3.00 Humidified 07/23/16 19:55 96 07/23/16 19:40 91 35 07/23/16 19:35 97.3 98 18 138/74 100 07/23/16 16:00 98.1 83 20 131/65 95 07/23/16 15:14 91 Nasal Cannula 3.00 I/O 07/23/16 07/23/16 07/23/16 07/24/16 07/24/16 07/24/16 07:00 15:00 23:00 07:00 15:00 23:00 Intake Total 240 ml 480 ml 480 ml 480 ml Output Total 200 ml 1500 ml 200 ml 550 ml Balance 40 ml -1020 ml 280 ml -70 ml Intake Oral 240 ml 480 ml 480 ml 480 ml Output Urine Total 200 ml 1500 ml 200 ml 550 ml # Voids 1 # Bowel Movements 0 1 0 Result Diagram: 07/22/162 07/22/16 0442 Procedures BiPAP Objective Remarks IN GENERAL: This elderly averagely built white male who is pale and in no distress HEAD, EYES, EARS, NOSE, AND THROAT: Head normocephalic. Pupils reactive and equal. Tongue is moist. Nasal no mucosae masses. Throat is clear NECK: Supple. No bruits or thyroid enlargement or lymphadenopathy. CHEST: Equal movements with distant breath sounds with Occ wheezes over both lung chen. Prolonged expirations. HEART: The heart sounds are irregular S1-S2. No murmur, no S3. ABDOMEN: The abdomen is soft, benign. No masses or organomegaly or tenderness. Bowel sounds are active. EXTREMITIES: Mild varicosities decreased peripheral pulses. NEUROLOGIC: Cranial nerves grossly intact.No deficit RECTUM: Rectal examination is deferred. SKIN: No lesions observed. Assessment and Plan Assessment and Plan IMPRESSION 1. acute on chronic respiratory failure. 2. 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 Anemia of chronic disease. 4. Atrial fibrillation and mild congestive heart failure. 5. Exogenous obesity and obstructive sleep apnea. 6. History of lung cancer status post right lower lobectomy. Plan : 1. O2 at 3 L. 2. Home O2 at 3L 3. Cont Antibiotics.Levaquin 500mg daily for 5 days 4. Symbicort 160/4.5 mcg , 2puffs bid. 5. D/C Bipap 6. prednisone 20 mg bid and taper over 3 weeks 7. Home per Erwin Rae MD July 24, 2016 13:01
== END 2016-07-24 14:45 | disposition home health service (06) | DRG 189 ==
LOC: NEPE 16:17 → NEDA 18:30 → HIME 22:55 → N04A 07-22 23:17
PROVIDERS: ADMIT Internal Medicine; ATTEND Internal Medicine
PROC: 5A09557 Assistance with Respiratory Ventilation, Greater than 96 Consecutive Hours, Continuous Positive Airway Pressure (ICD-10-PCS; principal; 2016-07-16)
DX: J96.21 Acute and chronic respiratory failure with hypoxia (principal); E87.4 Mixed disorder of acid-base balance; I48.92 Unspecified atrial flutter; I11.0 Hypertensive heart disease with heart failure; I50.9 Heart failure, unspecified; J44.1 Chronic obstructive pulmonary disease with (acute) exacerbation; Z99.81 Dependence on supplemental oxygen; E11.9 Type 2 diabetes mellitus without complications; D63.8 Anemia in other chronic diseases classified elsewhere; I48.91 Unspecified atrial fibrillation; G47.33 Obstructive sleep apnea (adult) (pediatric); I48.0 Paroxysmal atrial fibrillation; F10.10 Alcohol abuse, uncomplicated; E66.09 Other obesity due to excess calories; F17.210 Nicotine dependence, cigarettes, uncomplicated; F41.1 Generalized anxiety disorder; Z68.36 Body mass index [BMI] 36.0-36.9, adult; Z71.6 Tobacco abuse counseling; Z79.01 Long term (current) use of anticoagulants; Z80.8 Family history of malignant neoplasm of other organs or systems; Z80.1 Family history of malignant neoplasm of trachea, bronchus and lung; Z85.118 Personal history of other malignant neoplasm of bronchus and lung; Z85.47 Personal history of malignant neoplasm of testis; Z86.19 Personal history of other infectious and parasitic diseases; Z90.2 Acquired absence of lung [part of]; Z92.3 Personal history of irradiation; Z92.21 Personal history of antineoplastic chemotherapy
CPT/HCPCS: 36600; 71010; 80048; 80053; 81001; 82550; 82552; 82805; 82948; 83735; 83880; 84100; 84484; 85025; 85610; 85730; 87040; 87641; 93005; 94002; 94003; 94640; 94664; 96374; 96375; J1940; J2060; J2270; J2405; J2920; J2930; J7030; J7512; J7626; J7644

== ENCOUNTER 2016-08-31 17:59 | Inpatient (IN) | payer OTHER ==
[2016-08-31] VITALS (13 sets, daily range): BP systolic 91–159; BP diastolic 50–92; PULSE 102–124; RESP 16–30; TEMP 98.6; O2SAT 96–100
[~2016-08-31] VITALS: Ht 167.6 cm; Wt 124.0 kg
[~2016-08-31 17:59] MED LIST changes: -CEFU1TAB20 PO; +LEVA500T PO; -PRED20 PO; +PRED5TAB PO; -ZITH250T PO
[2016-08-31] MEDS ORDERED: ROCURONIUM INJ 50 MG/5 ML VIAL ONE (18:08)
[2016-08-31] MEDS ORDERED: PROPOFOL 1000 MG/100 ML INJ 100 ML ONE (18:08)
[2016-08-31] MEDS ORDERED: ETOMIDATE 20 MG/10 ML VIAL ONE (18:08)
[2016-08-31] MEDS ORDERED: SODIUM CHLORIDE 0.9% FLUSH 10 ML FLUSH IVF PRN ×3 (18:15→21:30)
[2016-08-31] MEDS ORDERED: RESP: ALBUTEROL 2.5 MG/IPRATROPIUM 0.5 MG NEB (SCH) INH ONE (18:15)
--- NOTE | 2016-08-31 18:20 | PD ---
HPI Chief Complaint: Respiratory Distress Time Seen by Provider: 18:13 Travel History International Travel<30 days: No Contact w/Intl Traveler<30days: No Traveled to known affect area: No History of Present Illness HPI Patient 71 years old. He arrives by EMS. For the past 2 days he has been feeling poorly. He felt much worse today. Positive subjective fever reported. He also carries a new diagnosis of CHF. He uses oxygen 24 7 at home for COPD , 2 L. EMS was activated today. On scene his O2 sat was 94%. He received 1 albuterol treatment en route and became agitated. He was unable to tolerate CPAP. EMS auscultated rales in both lungs. He received 100 mg Lasix IV. He was unable to tolerate a nonrebreather. With blow-by oxygenation the oxygen saturation increased to 98%. The ER the patient offers fragment speech stating , "Help me." EMS reports on scene his heart rate was 113 upon arrival to the ER is 142. Blood pressure just prior to ER arrival 142/86. Upon arrival to the ER the patient was intubated due to impending respiratory failure. PFSH Past Medical History Arthritis: Yes Asthma: Yes Heart Rhythm Problems: Yes Cancer: Yes (TESTICLE, LUNG) Cardiovascular Problems: Yes High Cholesterol: No Chemotherapy: Yes Chest Pain: Yes Congestive Heart Failure: Yes COPD: Yes Cerebrovascular Accident: No Coronary Artery Disease: No Diabetes: No Diminished Hearing: No Endocrine: No Gastrointestinal Disorders: Yes GERD: No Genitourinary: Yes Hepatitis: Yes Hiatal Hernia: No Hypertension: Yes Immune Disorder: No Kidney Stones: No Musculoskeletal: Yes Neurologic: No Psychiatric: No Reproductive: No Respiratory: Yes Migraines: Yes Renal Failure: No Seizures: No Sleep Apnea: Yes Thyroid Disease: No Ulcer: Yes Past Surgical History Abdominal Surgery: Yes (Part of liver removed) Cardiac Surgery: No Ear Surgery: No Endocrine Surgery: No Eye Surgery: No Genitourinary Surgery: Yes (testicular cancer) Gynecologic Surgery: No Neurologic Surgery: No Oral Surgery: No Thoracic Surgery: Yes (RL Lobe removed) Other Surgery: Yes (HAND SX) Social History Alcohol Use: Yes (6-8 BURBON/DAY) Tobacco Use: Yes (1/2) Substance Use: No Allergies-Medications (Allergen,Severity, Reaction): Coded Allergies: No Known Allergies (Verified , 08/31/16) Reported Meds & Prescriptions Reported Meds & Active Scripts Active Prednisone 5 Mg Tab 5 Mg PO DIRECTED 10 Days 40 mg po daily for two days then 30 mg po daily for two days then 20 mg po daily for two days then 10 mg po daily for two days then 5 mg po daily for two days then stop. Furosemide 40 Mg Tab 40 Mg PO DAILY Albuterol Neb (Albuterol Sulfate) 2.5 Mg/3 Ml Neb 2.5 Mg INH Q4HR NEB PRN Amiodarone (Amiodarone HCl) 200 Mg Tab 200 Mg PO DAILY Cardizem CD 24 HR (Diltiazem CD 24 HR) 180 Mg Caper 360 Mg PO DAILY Pantoprazole (Pantoprazole Sodium) 40 Mg Tab 40 Mg PO DAILY Eliquis (Apixaban) 5 Mg Tab 5 Mg PO BID Duoneb (Ipratropium-Albuterol Neb) 0.5-2.5 Mg/3 Ml Neb 1 Ampule INH Q6HR WHILE AWAKE NEB PRN Symbicort Inh (Budesonide/Formoterol Fumarate) 160-4.5 Mcg/Act Aero 2 Puff INH Q12HR Buspirone (Buspirone HCl) 5 Mg Tab 5 Mg PO TID Spiriva Handihaler (Tiotropium Inh) 18 Mcg Cap 1 Puff INH DAILY 1 capsule = 18 mcg Multi Vitamin and Mineral (Multiple Vitamins W/ Minerals) 1 Tab Tab 1 Tab PO DAILY Guaifenesin Liq (Guaifenesin) 100 mg/5 ML Soln 200 Mg PO QID PRN Lisinopril 10 Mg Tab 10 Mg PO DAILY Aspirin EC Low Dose (Aspirin) 81 Mg Tabec 162 Mg PO DAILY Nicotine Patch (Nicotine) 21 Mg/24 Hr Patch 21 Mg T-DERMAL DAILY Reported Tylenol (Acetaminophen) 325 Mg Tab 650 Mg PO Q4H PRN Review of Systems Except as stated in HPI: all other systems reviewed are Neg Physical Exam Narrative GENERAL: 71-year-old male moderate to severe respiratory distress SKIN: Focused skin assessment warm/dry. HEAD: Atraumatic. Normocephalic. EYES: Pupils equal and round. No scleral icterus. No injection or drainage. ENT: No nasal bleeding or discharge. Mucous membranes pink and moist. NECK: Trachea midline. No JVD. CARDIOVASCULAR: Tachycardia. Irregular rhythm. Rate about 110. RESPIRATORY: Tachypnea. Poor air movement. GASTROINTESTINAL: Abdomen soft, non-tender, nondistended. Hepatic and splenic margins not palpable. MUSCULOSKELETAL: No obvious deformities. No clubbing. No cyanosis. No edema. NEUROLOGICAL: Awake and alert. No obvious cranial nerve deficits. Motor grossly within normal limits. Normal speech. PSYCHIATRIC: Markedly anxious. Data Data Last Documented VS Vital Signs Date Time Temp Pulse Resp B/P Pulse Ox O2 Delivery O2 Flow Rate FiO2 08/31/16 21:00 105 18 119/88 100 Ventilator 08/31/16 19:56 50 08/31/16 18:10 15 08/31/16 18:08 98.6 Vital signs reviewed Orders Propofol 1000 Mg/100 Ml Inj (Diprivan 10 (08/31/16 18:08) Etomidate Inj (Amidate Inj) (08/31/16 18:08) Rocuronium Inj (Zemuron Inj) (08/31/16 18:08) Complete Blood Count With Diff (08/31/16 18:13) Comprehensive Metabolic Panel (08/31/16 18:13) B-Type Natriuretic Peptide (08/31/16 18:13) Act Partial Throm Time (Ptt) (08/31/16 18:13) Prothrombin Time / Inr (Pt) (08/31/16 18:13) Magnesium (Mg) (08/31/16 18:13) Ckmb (Isoenzyme) Profile (08/31/16 18:13) Troponin I (08/31/16 18:13) Arterial Blood Gas (Abg) (08/31/16 18:13) Iv Access Insert/Monitor (08/31/16 18:13) Electrocardiogram (08/31/16 18:13) Ecg Monitoring (08/31/16 18:13) Oximetry (08/31/16 18:13) Oxygen Administration (08/31/16 18:13) Chest, Single Ap (08/31/16 18:13) Sodium Chloride 0.9% Flush (Ns Flush) (08/31/16 18:15) Albuterol-Ipratropium Neb (Duoneb Neb) (08/31/16 18:15) Propofol 1000 Mg/100 Ml Inj (Diprivan 10 (08/31/16 18:15) ^ Infusion (08/31/16 18:13) Diltiazem Inj (Cardizem Inj) (08/31/16 18:30) Diltiazem Inj (Cardizem Inj) (08/31/16 18:30) Urinary Catheter Insert/Apply (08/31/16 18:40) Restraints Non-Violent JUSTIN.Q3H (08/31/16 18:40) Sodium Chloride 0.9% Flush (Ns Flush) (08/31/16 21:30) Methylprednisolone So Succ Inj (Solumedr (08/31/16 21:30) Albuterol-Ipratropium Neb (Duoneb Neb) (08/31/16 21:30) Admit Order (Ed Use Only) (08/31/16 ) ^ Saline Lock (08/31/16 21:21) Resp Oxygen Clement C Titrat 1-4 L (08/31/16 ) Notify Dr: Other (08/31/16 21:21) Sodium Chloride 0.9% Flush (Ns Flush) (09/01/16 09:00) Sodium Chloride 0.9% Flush (Ns Flush) (08/31/16 21:30) Labs Laboratory Tests Test 08/31/16 08/31/16 08/31/16 08/31/16 18:05 19:00 20:00 21:00 White Blood Count 13.2 TH/MM3 Red Blood Count 3.97 MIL/MM3 Hemoglobin 11.4 GM/DL Hematocrit 35.2 % Mean Corpuscular Volume 88.7 FL Mean Corpuscular Hemoglobin 28.6 PG Mean Corpuscular Hemoglobin 32.2 % Concent Red Cell Distribution Width 17.0 % Platelet Count 312 TH/MM3 Mean Platelet Volume 7.6 FL Neutrophils (%) (Auto) 84.7 % Lymphocytes (%) (Auto) 5.4 % Monocytes (%) (Auto) 9.7 % Eosinophils (%) (Auto) 0.0 % Basophils (%) (Auto) 0.2 % Neutrophils # (Auto) 11.2 TH/MM3 Lymphocytes # (Auto) 0.7 TH/MM3 Monocytes # (Auto) 1.3 TH/MM3 Eosinophils # (Auto) 0.0 TH/MM3 Basophils # (Auto) 0.0 TH/MM3 CBC Comment DIFF FINAL Differential Comment Prothrombin Time 12.9 SEC Prothromb Time International 1.2 RATIO Ratio Activated Partial 29.3 SEC Thromboplast Time B-Type Natriuretic Peptide 136 PG/ML Blood Gas Puncture Site LT BRACHIAL RT RADIAL Blood Gas Patient Temperature 98.6 98.6 Blood Gas HCO3 21 mmol/L 22 mmol/L Blood Gas Base Excess -4.4 mmol/L -3.6 mmol/L Blood Gas Oxygen Saturation 98 % 95 % Arterial Blood pH 7.29 7.30 Arterial Blood Partial 45 mmHg 45 mmHg Pressure CO2 Arterial Blood Partial 553 mmHG 103 mmHG Pressure O2 Arterial Blood Oxygen Content 16.4 Vol % 14.9 Vol % Arterial Blood 1.8 % 1.6 % Carboxyhemoglobin Arterial Blood Methemoglobin 0.5 % 0.8 % Blood Gas Hemoglobin 10.9 G/DL 11.0 G/DL Oxygen Delivery Device VENTILATOR VENTILATOR Blood Gas Ventilator Setting AC16/600/5PEEP AC/14/600/PEEP5 Blood Gas Inspired Oxygen 100 % 40 % Sodium Level 128 MEQ/L Potassium Level 5.9 MEQ/L Chloride Level 95 MEQ/L Carbon Dioxide Level 24.1 MEQ/L Anion Gap 9 MEQ/L Blood Urea Nitrogen 49 MG/DL Creatinine 4.76 MG/DL Estimat Glomerular Filtration 12 ML/MIN Rate Random Glucose 88 MG/DL Calcium Level 9.2 MG/DL Magnesium Level 2.7 MG/DL Total Bilirubin 0.8 MG/DL Aspartate Amino Transf 70 U/L (AST/SGOT) Alanine Aminotransferase 43 U/L (ALT/SGPT) Alkaline Phosphatase 148 U/L Total Creatine Kinase 83 U/L Troponin I LESS THAN 0.02 NG/ML Total Protein 6.4 GM/DL Albumin 2.8 GM/DL MDM Medical Decision Making Medical Screen Exam Complete: Yes Emergency Medical Condition: Yes Medical Record Reviewed: Yes Differential Diagnosis Pneumonia, CHF, COPD, pneumothorax, sepsis, volume overload, renal failure Narrative Course EKG reveals a atrial fibrillation rhythm with a rate of 116 Chest x-ray reveals endotracheal tube in correct position, no dense consolidation or volume overload Procedures Procedure Narrative After the risks and benefits were discussed the following procedure was performed: INTUBATION: The patient was put in optimal position for the procedure. Rapid sequence intubation was initiated by me using 20 milligrams of etomidate IV and 50 milligrams of rocuronium IV. The patient was intubated with a 8-0 cuffed endotracheal tube. Tube placement was confirmed by visualization of the tube and balloon passing through the cords, capnometry and subsequent chest x-ray. Breath sounds were equal and well aerated bilaterally postintubation. No breath sounds over stomach. Patient tolerated procedure well. Antonio Payne MD Aug 31, 2016 18:19
[2016-08-31] MEDS ORDERED: DILTIAZEM HCL 25 MG/5 ML VIAL IV ONE ×2 (18:30)
[2016-08-31] MEDS: PROPOFOL 1000 MG/100 ML INJ 100 ML IV SCH (18:44)
[2016-08-31 19:05] LABS: BLOOD GAS BASE EXCESS -4.4 mmol/L (-2-2); BLOOD GAS CARBOXYHEMOGLOBIN 1.8 % (0-4); BLOOD GAS HCO3 21 mmol/L (22-26); BLOOD GAS METHEMOGLOBIN 0.5 % (0-2); BLOOD GAS O2 HGB SATURATION 98 % (90-100); BLOOD GAS OXYGEN CONTENT 16.4 Vol % (12.0-20.0); BLOOD GAS PCO2 45 mmHg (38-42); BLOOD GAS PO2 553 mmHG (61-120); BLOOD GAS TOTAL HGB 10.9 G/DL (12.0-16.0); TEMP CORR TO 98.6
[2016-08-31 19:06] LABS: CRITICAL VALUE YES; DRAW SITE LT BRACHIAL; FIO2 100 %; NUMBER OF ARTERIAL PUNCTURES 2; OXYGEN DEVICE VENTILATOR; STAT YES; ULNAR PULSE Y; VENT SETTINGS AC16/600/5PEEP
--- NOTE | 2016-08-31 19:09 | RADRPT ---
EXAM DATE/TIME: 08/31/2016 18:25 [facility] COMPARISON: CT THORAX W/O CONTRAST, May 23, 2016, 14:30. CHEST SINGLE AP, July 16, 2016, 16:39. INDICATIONS : Post intubation. MEDICAL HISTORY : Myocardial infarction. Chronic obstructive pulmonary disease. Congestive heart failure. Hypertension. Emphysema. Ulcer. Arthritis. Testicular cancer. Lung cancer. Hepatitis.Diabetes. Liver cancer. ETOH use SURGICAL HISTORY : Right hand surgery. Right lobe of lung removed. Right testicle ENCOUNTER: Initial ACUITY: 1 day PAIN SCORE: Non-responsive. LOCATION: Bilateral chest FINDINGS: ET tube in good position. The heart size is normal. Clips are seen in the right infrahilar region. Th ere is elevation of the right hemidiaphragm. The lungs are clear. There is a dense area of spurring i n the right lateral mid thoracic spine. CONCLUSION: No acute abnormality seen. ET tube is in good position. Arash Chávez MD on August 31, 2016 at 19:05 Board Certified Radiologist. This report was verified electronically.
--- NOTE | 2016-08-31 19:22 | PD ---
Physical Exam Date Seen by Provider: Aug 31, 2016 Time Seen by Provider: 19:14 Narrative Accepted in transfer of care from Dr. Payne GENERAL: Obese male with endotracheal intubation, sedated. NECK: Trachea midline. No JVD or lymphadenopathy. CARDIOVASCULAR: Increased regular rate and rhythm without murmurs, gallops, or rubs. RESPIRATORY: Breath sounds equal bilaterally. No accessory muscle use. Data Data Last Documented VS Vital Signs Date Time Temp Pulse Resp B/P Pulse Ox O2 Delivery O2 Flow Rate FiO2 08/31/16 19:56 105 18 116/59 100 Ventilator 50 08/31/16 18:10 15 08/31/16 18:08 98.6 Orders Propofol 1000 Mg/100 Ml Inj (Diprivan 10 (08/31/16 18:08) Etomidate Inj (Amidate Inj) (08/31/16 18:08) Rocuronium Inj (Zemuron Inj) (08/31/16 18:08) Complete Blood Count With Diff (08/31/16 18:13) Comprehensive Metabolic Panel (08/31/16 18:13) B-Type Natriuretic Peptide (08/31/16 18:13) Act Partial Throm Time (Ptt) (08/31/16 18:13) Prothrombin Time / Inr (Pt) (08/31/16 18:13) Magnesium (Mg) (08/31/16 18:13) Ckmb (Isoenzyme) Profile (08/31/16 18:13) Troponin I (08/31/16 18:13) Arterial Blood Gas (Abg) (08/31/16 18:13) Iv Access Insert/Monitor (08/31/16 18:13) Electrocardiogram (08/31/16 18:13) Ecg Monitoring (08/31/16 18:13) Oximetry (08/31/16 18:13) Oxygen Administration (08/31/16 18:13) Chest, Single Ap (08/31/16 18:13) Sodium Chloride 0.9% Flush (Ns Flush) (08/31/16 18:15) Albuterol-Ipratropium Neb (Duoneb Neb) (08/31/16 18:15) Propofol 1000 Mg/100 Ml Inj (Diprivan 10 (08/31/16 18:15) ^ Infusion (08/31/16 18:13) Diltiazem Inj (Cardizem Inj) (08/31/16 18:30) Diltiazem Inj (Cardizem Inj) (08/31/16 18:30) Urinary Catheter Insert/Apply (08/31/16 18:40) Restraints Non-Violent JUSTIN.Q3H (08/31/16 18:40) Sodium Chloride 0.9% Flush (Ns Flush) (08/31/16 21:30) Methylprednisolone So Succ Inj (Solumedr (08/31/16 21:30) Albuterol-Ipratropium Neb (Duoneb Neb) (08/31/16 21:30) Labs Laboratory Tests Test 08/31/16 08/31/16 08/31/16 18:05 19:00 20:00 White Blood Count 13.2 TH/MM3 Red Blood Count 3.97 MIL/MM3 Hemoglobin 11.4 GM/DL Hematocrit 35.2 % Mean Corpuscular Volume 88.7 FL Mean Corpuscular Hemoglobin 28.6 PG Mean Corpuscular Hemoglobin 32.2 % Concent Red Cell Distribution Width 17.0 % Platelet Count 312 TH/MM3 Mean Platelet Volume 7.6 FL Neutrophils (%) (Auto) 84.7 % Lymphocytes (%) (Auto) 5.4 % Monocytes (%) (Auto) 9.7 % Eosinophils (%) (Auto) 0.0 % Basophils (%) (Auto) 0.2 % Neutrophils # (Auto) 11.2 TH/MM3 Lymphocytes # (Auto) 0.7 TH/MM3 Monocytes # (Auto) 1.3 TH/MM3 Eosinophils # (Auto) 0.0 TH/MM3 Basophils # (Auto) 0.0 TH/MM3 CBC Comment DIFF FINAL Differential Comment Prothrombin Time 12.9 SEC Prothromb Time International 1.2 RATIO Ratio Activated Partial 29.3 SEC Thromboplast Time B-Type Natriuretic Peptide 136 PG/ML Blood Gas Puncture Site LT BRACHIAL Blood Gas Patient Temperature 98.6 Blood Gas HCO3 21 mmol/L Blood Gas Base Excess -4.4 mmol/L Blood Gas Oxygen Saturation 98 % Arterial Blood pH 7.29 Arterial Blood Partial 45 mmHg Pressure CO2 Arterial Blood Partial 553 mmHG Pressure O2 Arterial Blood Oxygen Content 16.4 Vol % Arterial Blood 1.8 % Carboxyhemoglobin Arterial Blood Methemoglobin 0.5 % Blood Gas Hemoglobin 10.9 G/DL Oxygen Delivery Device VENTILATOR Blood Gas Ventilator Setting AC16/600/5PEEP Blood Gas Inspired Oxygen 100 % Sodium Level 128 MEQ/L Potassium Level 5.9 MEQ/L Chloride Level 95 MEQ/L Carbon Dioxide Level 24.1 MEQ/L Anion Gap 9 MEQ/L Blood Urea Nitrogen 49 MG/DL Creatinine 4.76 MG/DL Estimat Glomerular Filtration 12 ML/MIN Rate Random Glucose 88 MG/DL Calcium Level 9.2 MG/DL Magnesium Level 2.7 MG/DL Total Bilirubin 0.8 MG/DL Aspartate Amino Transf 70 U/L (AST/SGOT) Alanine Aminotransferase 43 U/L (ALT/SGPT) Alkaline Phosphatase 148 U/L Total Creatine Kinase 83 U/L Troponin I LESS THAN 0.02 NG/ML Total Protein 6.4 GM/DL Albumin 2.8 GM/DL [facility] Medical Record Reviewed: Yes Supervised Visit with RE: No Interpretation(s) Last Impressions Chest X-Ray 08/31/161812 Signed Impressions: Service Date/Time: Friday, August 31, 2016 18:25 - CONCLUSION: No acute abnormality seen. ET tube is in good position. Arash Chávez MD CBC & BMP Diagram 08/31/16 18:05 08/31/16 20:00 Vital Signs Date Time Temp Pulse Resp B/P Pulse Ox O2 Delivery O2 Flow Rate FiO2 08/31/16 19:56 105 18 116/59 100 Ventilator 50 08/31/16 19:30 100 40 08/31/16 18:50 102 16 93/50 100 Ventilator 100 08/31/16 18:40 124 16 91/53 100 Ventilator 100 08/31/16 18:30 120 16 117/58 100 Ventilator 100 08/31/16 18:20 112 16 122/56 100 Ventilator 100 08/31/16 18:20 100 08/31/16 18:12 100 100 08/31/16 18:10 100 Ventilator 100 08/31/16 18:10 114 28 159/76 99 Non-Rebreather 15 08/31/16 18:08 98.6 115 30 137/92 96 Differential Diagnosis Accepted in transfer of care please refer to Dr. Payne's dictation Narrative Course Accepted in transfer of care from Dr. Payne patient with acute respiratory distress and respiratory failure with near respiratory arrest requiring endotracheal intubation with history of COPD and CHF as well as atrial fib flutter with rapid ventricular response patient is presently intubated and awaiting lab results this EKG atrial fibrillation with RVR with right bundle branch block no acute ST elevation or injury pattern change noted chest x-ray shows no vascular congestion effusion pneumothorax or infiltrate and tracheal tube is in good position. Labs are pending along with patient in admission to ICU. At 9:12 PM chemistries resulted patient identified to have acute renal insufficiency/failure with BUN of 49 and creatinine of 4.76 Physician Communication Physician Communication call placed to [facility] Dr Rondon Diagnosis Primary Impression: COPD with exacerbation Additional Impressions: Respiratory failure, acute Acute renal insufficiency Admitting Information Admitting Physician Requests: Admit Cathy Villavicencio MD Aug 31, 2016 19:22
[2016-08-31 19:31] LABS: AUTOMATED NEUTROPHIL # 11.2 TH/MM3 (1.8-7.7); BASOPHIL % 0.2 % (0.0-2.0); HEMATOCRIT 35.2 % (39.0-51.0); HEMO FLAGS DIFF FINAL; LYMPH % 5.4 % (9.0-44.0); LYMPHOCYTE # 0.7 TH/MM3 (1.0-4.8); MEAN CELL VOLUME 88.7 FL (80.0-100.0); MEAN CORPUSCULAR HEMOGLOBIN 28.6 PG (27.0-34.0); MEAN CORPUSCULAR HGB CONC 32.2 % (32.0-36.0); MONO % 9.7 % (0.0-8.0); NEUT % 84.7 % (16.0-70.0); PLATELET COUNT 312 TH/MM3 (150-450); RED BLOOD COUNT 3.97 MIL/MM3 (4.50-5.90); WHITE BLOOD COUNT 13.2 TH/MM3 (4.0-11.0)
[2016-08-31 19:41] LABS: APTT (PATIENT) 29.3 SEC (24.3-30.1); INTERNATIONAL NORMALIZED RATIO 1.2 RATIO; PROTHROMBIN TIME - PATIENT 12.9 SEC (9.8-11.6)
[2016-08-31 21:02] LABS: ANION GAP 9 MEQ/L (5-15); BICARBONATE 24.1 MEQ/L (21.0-32.0); BLOOD UREA NITROGEN 49 MG/DL (7-18); CHLORIDE 95 MEQ/L (98-107); GLOMERULAR FILTRATION RATE 12 ML/MIN (>89); MAGNESIUM 2.7 MG/DL (1.5-2.5); POTASSIUM 5.9 MEQ/L (3.5-5.1); SODIUM (NA) 128 MEQ/L (136-145)
[2016-08-31 21:03] LABS: ALT (GPT) 43 U/L (12-78); AST (GOT) 70 U/L (15-37)
[2016-08-31 21:07] LABS: ALKALINE PHOSPHATASE 148 U/L (45-117); TOTAL BILIRUBIN ADULT 0.8 MG/DL (0.2-1.0)
[2016-08-31 21:08] LABS: CREATINE KINASE 83 U/L (39-308)
[2016-08-31] MEDS: RESP: ALBUTEROL 2.5 MG/IPRATROPIUM 0.5 MG NEB (SCH) INH (21:23)
[2016-08-31] MEDS ORDERED: methylPREDNISolone SOD SUCC 125 MG/2 ML VIAL IVP ONE (21:30)
[2016-08-31] MEDS ORDERED: SODIUM POLYSTYRENE SULFONATE SUSP 15 GM/60 ML CUP OG-TUBE ONE (22:15)
[2016-08-31] MEDS ORDERED: guaiFENesin SOLUTION 200 MG/10 ML CUP PO PRN (22:30)
--- NOTE | 2016-08-31 22:30 | HHI.HP ---
HPI Service Critical Care Medicine Primary Care Physician [facility] Admission Diagnosis exac copd/resp failure; acute renal insufficiency; AFRVR Diagnosis: Travel History International Travel<30 Days: No Contact w/Intl Traveler <30 Da: No Traveled to Known Affected Are: No History of Present Illness Unable to obtain history from patient as he was intubated in the ED prior to admission. I attempted to call Jesse Veliz who is a friend listed as his next of kin contact but there was no answer. History obtained from EMR and discussion with Dr. Villavicencio. 71-year-old male with past medical history of COPD on home O2, hypertension, diabetes, history of paroxysmal atrial flutter on chronic anticoagulation with Eliquis, testicular cancer, hepatitis C, alcohol abuse who presented to [facility] emergency department via E VAC with severe respiratory distress. He indicated to the ED physician that he been feeling poorly for 2 days and had had a subjective fever. Reportedly sats were 94% at the scene. He was given albuterol treatment. C Pap was attempted but he was unable to tolerate. He was given Lasix 100 mg IV because he carried a history of CHF. He was severely dyspneic on arrival and was intubated for impending respiratory failure. He was in A. fib RVR with rate in the 120s. He has been administered Cardizem 20 mg IV total. Heart rate remains in the 120s. He received Duoneb x2 and Solumedrol 125 mg IV. He is in acute renal failure and acute hypercapnic respiratory failure Review of Systems ROS Limitations: Intubated Past Family Social History Allergies: Coded Allergies: No Known Allergies (Verified , 08/31/16) Past Medical History COPD on home O2 MAGO Hypertension Diabetes ?borderline ... no meds. Paroxysmal atrial fibrillation on chronic anticoagulation with Eliquis Hep C Testicular cancer s/p orchiectomy GERD Lung cancer status post chemotherapy and right lower lobectomy Past Surgical History Partial liver resection Orchiectomy for testicular cancer Right lower lobectomy Hand surgery Family History Unable to obtain from patient due to clinical condition, intubation. Per EMR: Mother: age 57 cancer brain/lung Father: age 86 natural causes Social History Unable to obtain directly from patient due to clinical condition, intubation Per EMR Smokes one half pack of cigarettes per day Drinks 6-8 bourbon beverages daily Reportedly lives with a roommate In an H and P from 05/21/16, Patient reportedly had designated his sister, Rhonda Elliott, as HCS however no number was provided. Physical Exam Vital Signs Vital Signs Date Time Temp Pulse Resp B/P Pulse Ox O2 Delivery O2 Flow Rate FiO2 08/31/16 21:00 105 18 119/88 100 Ventilator 08/31/16 19:56 105 18 116/59 100 Ventilator 50 08/31/16 19:30 100 40 08/31/16 18:50 102 16 93/50 100 Ventilator 100 08/31/16 18:40 124 16 91/53 100 Ventilator 100 08/31/16 18:30 120 16 117/58 100 Ventilator 100 08/31/16 18:20 112 16 122/56 100 Ventilator 100 08/31/16 18:20 100 08/31/16 18:12 100 100 08/31/16 18:10 100 Ventilator 100 08/31/16 18:10 114 28 159/76 99 Non-Rebreather 15 08/31/16 18:08 98.6 115 30 137/92 96 Physical Exam Drips: Propofol 15 Scottie grams per KG per minute Temp 98.6. Pulse 109 blood pressure 113/70 sats 100% GENERAL: Disheveled, well-developed obese male patient who is orotracheally intubated. SKIN: Warm, dry, no diaphoresis. HEAD: Atraumatic. Normocephalic. EYES: No scleral icterus. No injection or drainage. ENT: No nasal bleeding or discharge. Mucous membranes pink and moist. Thick méndez. NECK: Trachea midline. No JVD appreciated. CARDIOVASCULAR: distant heart sounds. Irregularly irregular, tachycardic, no murmurs rubs or gallops appreciated. RESPIRATORY: Very distant breath sounds with poor air movement bilaterally and scant expiratory wheeze. GASTROINTESTINAL: Abdomen protruberant, soft, with some mild distension, no tenderness, no rebound or guarding. Bowel sounds present : Pabon in place with 100 yellow urine in bag. MUSCULOSKELETAL: Extremities without clubbing, cyanosis. There is ~2 + pitting pretibial edema. NEUROLOGICAL: Awake and alert, nodding to questions. No obvious cranial nerve deficits. Motor grossly within normal limits and following commands with all extremities. Laboratory Laboratory Tests Test 08/31/16 08/31/16 08/31/16 18:05 19:00 20:00 White Blood Count 13.2 Red Blood Count 3.97 Hemoglobin 11.4 Hematocrit 35.2 Mean Corpuscular Volume 88.7 Mean Corpuscular Hemoglobin 28.6 Mean Corpuscular Hemoglobin 32.2 Concent Red Cell Distribution Width 17.0 Platelet Count 312 Mean Platelet Volume 7.6 Neutrophils (%) (Auto) 84.7 Lymphocytes (%) (Auto) 5.4 Monocytes (%) (Auto) 9.7 Eosinophils (%) (Auto) 0.0 Basophils (%) (Auto) 0.2 Neutrophils # (Auto) 11.2 Lymphocytes # (Auto) 0.7 Monocytes # (Auto) 1.3 Eosinophils # (Auto) 0.0 Basophils # (Auto) 0.0 CBC Comment DIFF FINAL Differential Comment Prothrombin Time 12.9 Prothromb Time International 1.2 Ratio Activated Partial 29.3 Thromboplast Time B-Type Natriuretic Peptide 136 Blood Gas Puncture Site LT BRACHIAL Blood Gas Patient Temperature 98.6 Blood Gas HCO3 21 Blood Gas Base Excess -4.4 Blood Gas Oxygen Saturation 98 Arterial Blood pH 7.29 Arterial Blood Partial 45 Pressure CO2 Arterial Blood Partial 553 Pressure O2 Arterial Blood Oxygen Content 16.4 Arterial Blood 1.8 Carboxyhemoglobin Arterial Blood Methemoglobin 0.5 Blood Gas Hemoglobin 10.9 Oxygen Delivery Device VENTILATOR Blood Gas Ventilator Setting AC16/600/5PEEP Blood Gas Inspired Oxygen 100 Sodium Level 128 Potassium Level 5.9 Chloride Level 95 Carbon Dioxide Level 24.1 Anion Gap 9 Blood Urea Nitrogen 49 Creatinine 4.76 Estimat Glomerular Filtration 12 Rate Random Glucose 88 Calcium Level 9.2 Magnesium Level 2.7 Total Bilirubin 0.8 Aspartate Amino Transf 70 (AST/SGOT) Alanine Aminotransferase 43 (ALT/SGPT) Alkaline Phosphatase 148 Total Creatine Kinase 83 Troponin I LESS THAN 0.02 Total Protein 6.4 Albumin 2.8 Result Diagram: 08/31/16 1805 08/31/161999 Assessment and Plan Assessment and Plan NEURO: Anxiety EtOH abuse Propofol for sedation. He will need additional sedation for ventilator synchrony. Add fentanyl drip. Versed bolus as needed Continue BuSpar 5 tid for now. Monitor for signs and symptoms of alcohol withdrawal Thiamine/folic acid/multivitamin RESP: Acute hypercapnic respiratory failure overlying chronic hypoxia Acute COPD exacerbation MAGO Tobacco abuse History of lung cancer status post right lower lobectomy DuoNeb every 4 hours. Albuterol every 2 hours as needed for wheezing. Solu- Medrol 60 mg IV every 6 hours. Empiric abx for severe COPD exacerbation Send sputum culture Chest x-ray demonstrates no infiltrate. Hold spiriva, symbicort for now. Budesonide bid. CV: Hypertension Paroxysmal atrial fibrillation with RVR Chronic heart failure with preserved EF Continue amiodarone 200 daily. Will use Cardizem drip for now for rate control. Will hold long-acting po Cardizem while intubated. Likely transition to short acting by mouth Cardizem in the morning to get him off of the drip. On chronic anticoagulation with Eliquis for h/o A fib which will continue for now Troponin is 0.02. Will follow-up serial troponins. Echo 04/26/16 - EF 50-55%, no atrial enlargement, normal PASP Will obtain limited echo. GI: History of hepatitis C GERD Will ask RN to insert a G-tube in place to low intermittent wall suction. FEN/RENAL: Acute kidney injury Hyperkalemia Hypermagnesemia Pabon is in place. He has only had about 100 cc of urine in Pabon since it was placed over 5 hours ago after receiving Lasix 100 mg IV given earlier. ( Confirmed he did not void before pabon insertion) Assessement of volume status is challenging because he does have hyponatremia and peripheral edema though these may be due to his chronic CO2 retention. I do not appreciate JVD. He is definitely not in overt CHF. Will try fluid, begin with NS @ 100 ml/hr. Obtain FeNa, urine eos, renal u/s. CPK is normal. Followup BMP. UOP q1 hour. Kayexalate 30 gram for hyperkalemia. followup lab ID: Obtain pancultures. Levaquin 500 milligrams IV, then 250 every 48 hours to cover community acquired organisms in setting of COPD exacerbation. HEME: History of testicular cancer status post unilateral orchiectomy Monitor CBC ENDO: ?borderline DM (per prior records, no meds on med rec) Low-dose insulin sliding scale every 4 hours while on steroid PROPH: Protonix 40 g IV daily for stress ulcer prophylaxis. SCDs for DVT prophylaxis. On Eliquis which will also provide DVT prophylaxis ACCESS: Peripheral IV providing adequate access at this time. Full code In an H and P from 05/21/16, Patient reportedly had designated his sister, Rhonda Elliott, as HCS however no number was provided. Patient is critically ill with multiple organ failure which presents threat of imminent deterioration. CCT 60 minutes exclusive of separately billable procedures. Elba Rondon MD Aug 31, 2016 22:29
[2016-08-31 23:01] LABS: BLOOD GAS BASE EXCESS -3.6 mmol/L (-2-2); BLOOD GAS CARBOXYHEMOGLOBIN 1.6 % (0-4); BLOOD GAS HCO3 22 mmol/L (22-26); BLOOD GAS METHEMOGLOBIN 0.8 % (0-2); BLOOD GAS O2 HGB SATURATION 95 % (90-100); BLOOD GAS OXYGEN CONTENT 14.9 Vol % (12.0-20.0); BLOOD GAS PCO2 45 mmHg (38-42); BLOOD GAS PO2 103 mmHG (61-120); CRITICAL VALUE NO; OXYGEN DEVICE VENTILATOR; TEMP CORR TO 98.6
[2016-08-31 23:02] LABS: DRAW SITE RT RADIAL; FIO2 40 %; NUMBER OF ARTERIAL PUNCTURES 1; STAT NO; ULNAR PULSE PRESENT; VENT SETTINGS AC/14/600/PEEP5
[2016-08-31] MEDS: MIDAZOLAM HCL 2 MG/2 ML VIAL IV PUSH PRN (23:06)
[2016-08-31] MEDS ORDERED: PROPOFOL 1000 MG/100 ML INJ 100 ML IV SCH (23:30)
[2016-08-31] MEDS ORDERED: GLUCAGON 1 MG/ML VIAL OTHER PRN (23:30)
[2016-08-31] MEDS ORDERED: LEVOFLOXACIN 500 MG PREMIX INJ 100 ML IV ONE (23:30)
[2016-08-31] MEDS ORDERED: THIAMINE HCL 100 MG TAB TUBE SCH (23:30)
[2016-08-31] MEDS ORDERED: DEXTROSE 50% IN WATER 50 ML VIAL(D50) IV PRN (23:30)
[2016-08-31] MEDS: DILTIAZEM INJ 125 MG in SODIUM CHLORIDE 0.9% INJ 100 ML IV SCH (23:42)
[2016-09-01] VITALS (22 sets, daily range): BP systolic 93–122; BP diastolic 53–70; PULSE 92–115; RESP 16–28; TEMP 98.3–99.1; O2SAT 95–100
[2016-09-01 00:30] LABS: BLOOD, URINE NEG (NEG); GLUCOSE,URINE NEG (NEG); HYALINE CAST, URINE 58 /lpf (RARE); KETONE, URINE NEG (NEG); MUCUS URINE FEW /lpf (OCC); NITRITE,URINE NEG (NEG); SQUAMOUS EPITHELIAL CELL URINE 1 /hpf (0-5); URINE COLOR YELLOW (YELLW/STRAW)
[2016-09-01 00:33] LABS: COMMENT (UR) CATH-CULT NOT IND; CULTURE IF INDICATED CATH CULTURE NOT IND
--- NOTE | 2016-09-01 00:40 | RADRPT ---
EXAM DATE/TIME: 08/31/2016 23:47 [facility] COMPARISON: No previous studies available for comparison. INDICATIONS : Increased BUN. MEDICAL HISTORY : Myocardial infarction. Chronic obstructive pulmonary disease. Congestive heart failure. Hypertension. Emphysema. Ulcer. Arthritis. Testicular cancer. Lung cancer. Hepatitis. Diabetes. Liver cancer. ETOH use. SURGICAL HISTORY : Right hand surgery. Right lobe of lung removed. Right testicle removed. ENCOUNTER: Initial ACUITY: 1 day PAIN SCORE: Nonresponsive. LOCATION: Bilateral flank MEASUREMENTS: RIGHT KIDNEY: 9.7 x 5.0 x 4.8 cm LEFT KIDNEY: 9.5 x 5.0 x 5.2 cm FINDINGS: Fluid scattered throughout the abdomen RIGHT KIDNEY: Renal cortex is decreased in thickness and echotexture. No hydronephrosis, stone, or mass. LEFT KIDNEY: Renal cortex is decreased in thickness and echotexture. No hydronephrosis, stone, or mass. BLADDER: Within normal limits given the degree of distension. CONCLUSION: Diffuse cortical thinning of both kidneys. Scattered ascites throughout the abdomen.. Olvin Guzman MD on September 01, 2016 at 0:38 Board Certified Radiologist. This report was verified electronically.
[2016-09-01] MEDS: MIDAZOLAM HCL 2 MG/2 ML VIAL IV PUSH PRN ×2 (01:31→02:42)
[2016-09-01] MEDS ORDERED: CHLORHEXIDINE GLUCONATE 2 % 1 PACK (2 CLOTHS)(extra cloths) TOPICAL PRN (02:30)
[2016-09-01] MEDS: PROPOFOL 1000 MG/100 ML INJ 100 ML IV SCH ×2 (02:43→19:18)
[2016-09-01] MEDS: fentaNYL DRIP 250 ML IV SCH (02:51)
[2016-09-01] MEDS: RESP: ALBUTEROL 2.5 MG/IPRATROPIUM 0.5 MG NEB (SCH) NEB ×7 (03:57→23:30)
[2016-09-01] MEDS: INSULIN ASPART SUPPLEMENTAL SCALE SQ SCH ×6 (04:00→22:37)
[2016-09-01] MEDS ORDERED: CHLORHEXIDINE GLUCONATE 2 % 1 PACK (2 CLOTHS)(taper/protocol) TOPICAL SCH (04:00)
[2016-09-01] MEDS: methylPREDNISolone SOD SUCC 125 MG/2 ML VIAL IV PUSH SCH ×2 (04:38→09:13)
--- NOTE | 2016-09-01 04:43 | RADRPT ---
EXAM DATE/TIME: 09/01/2016 03:44 [facility] COMPARISON: CHEST SINGLE AP, August 31, 2016, 18:25. INDICATIONS : Evaluate for respiratory failure post ETT placement. MEDICAL HISTORY : Myocardial infarction. Chronic obstructive pulmonary disease. Congestive SURGICAL HISTORY : Right hand surgery. Right lobe of lung removed. Right testicle ENCOUNTER: Subsequent ACUITY: 2 days PAIN SCORE: Non-responsive. LOCATION: Bilateral chest FINDINGS: A single view of the chest demonstrates the lungs to be symmetrically aerated without evidence of mas s, infiltrate or effusion. The cardiomediastinal contours are unremarkable. Osseous structures are intact. The endotracheal tube and nasogastric tube are both in good position CONCLUSION: Normal examination. Olvin Guzman MD on September 01, 2016 at 4:42 Board Certified Radiologist. This report was verified electronically.
[2016-09-01 05:20] LABS: ALT (GPT) 49 U/L (12-78); ANION GAP 10 MEQ/L (5-15); AST (GOT) 69 U/L (15-37); BICARBONATE 23.3 MEQ/L (21.0-32.0); BLOOD UREA NITROGEN 53 MG/DL (7-18); CHLORIDE 95 MEQ/L (98-107); GLOMERULAR FILTRATION RATE 11 ML/MIN (>89); MAGNESIUM 2.9 MG/DL (1.5-2.5); POTASSIUM 6.2 MEQ/L (3.5-5.1); SODIUM (NA) 128 MEQ/L (136-145)
[2016-09-01 05:22] LABS: ALKALINE PHOSPHATASE 156 U/L (45-117); TOTAL BILIRUBIN ADULT 0.7 MG/DL (0.2-1.0)
[2016-09-01] MEDS ORDERED: SODIUM CHLORID 0.9% 500 ML INJ 500 ML IV ONE ×2 (05:30→05:45)
[2016-09-01 05:35] LABS: CREATINE KINASE 95 U/L (39-308)
[2016-09-01] MEDS: SODIUM CHLOR 0.9% 1000 ML INJ 1,000 ML IV SCH ×2 (05:41→13:20)
[2016-09-01] MEDS ORDERED: SODIUM POLYSTYRENE SULFONATE SUSP 15 GM/60 ML CUP OG-TUBE ONE (05:45)
[2016-09-01] MEDS ORDERED: DEXTROSE 50% IN WATER 50 ML VIAL(D50) IV PUSH ONE (05:45)
[2016-09-01] MEDS ORDERED: SODIUM BICARBONATE 8.4% INJ 50 MEQ/50 ML SYR IV PUSH ONE (05:45)
[2016-09-01] MEDS ORDERED: INSULIN HUMAN REGULAR 1,000 UNITS/10 ML VIAL IV PUSH ONE (05:45)
[2016-09-01] MEDS ORDERED: TERBUTALINE INJ 1 MG/ML AMP SQ PRN ×2 (06:30→15:00)
[2016-09-01] MEDS ORDERED: cefTRIAXone INJ 1,000 MG in SODIUM CHLORIDE 0.9% INJ 100 ML IV SCH (07:00)
--- NOTE | 2016-09-01 07:24 | PD.PROCEDR ---
Central Line Procedure REASON FOR PROCEDURE Central venous access PROCEDURE PERFORMED Central line placement: Right IJ CVL CONSENT Informed consent for procedure was obtained. The risks and benefits of the procedure were discussed to include but limited to bleeding, clot formation, infection, and even . ANESTHESIA Local injection of 1% Lidocaine DESCRIPTION OF THE PROCEDURE The patient was placed in supine, mild Trendelenburg position. The area was exposed and cleansed with ChloraPrep, times two. Large sterile drape was used to cover the patient, with the site exposed, under sterile conditions including cap, face mask, sterile gown, and sterile gloves. On single attempt, the introducer needle was inserted with negative pressure in syringe and venous flash was obtained. The guide wire was then advanced without any restriction and the needle was removed. The dilator was used without any complications. Using Seldinger technique the triple-lumen antibiotic coated catheter was advanced over the guide wire to a depth of 16 centimeters. The guide wire was removed. All ports were aspirated with dark venous blood return and flushed easily with sterile saline. All ports were capped. Antibiotic disc was placed around central line at puncture site. The central line was secured to the skin with two interrupted 2.0 silk sutures. The area was bandaged with sterile see- through central line bandage. RADIOLOGICAL DATA Ultrasound guidance was used to locate right internal jugular vein. Doppler/ color flow was used to confirm venous flow. COMPLICATIONS: No apparent complications ESTIMATED BLOOD LOSS: Less than 1 cc. Ean Mcgregor MD Sep 01, 2016 07:24
[2016-09-01] MEDS ORDERED: LACTULOSE SYRUP 20 GM/30 ML CUP PO PRN ×2 (07:30→15:45)
[2016-09-01] MEDS ORDERED: SODIUM CHLORIDE 0.9% FLUSH 10 ML FLUSH IVF PRN ×2 (07:30→11:45)
[2016-09-01] MEDS ORDERED: BISACODYL 10 MG SUPP RECTAL PRN ×2 (07:30→15:45)
[2016-09-01] MEDS ORDERED: SENNOSIDES 8.6 MG TAB PO PRN ×2 (07:30→15:45)
[2016-09-01] MEDS ORDERED: MISCELLANEOUS NURSING INFORMATION XX SCH (07:30)
[2016-09-01] MEDS ORDERED: MAGNESIUM HYDROXIDE SUSP 30 ML CUP PO PRN ×2 (07:30→15:45)
[2016-09-01] MEDS ORDERED: CHLORHEXIDINE GLUCONATE 2 % 1 PACK (2 CLOTHS) TOP PRN (07:30)
[2016-09-01] MEDS ORDERED: ONDANSETRON HCL 4 MG/2 ML VIAL IV PRN ×3 (07:30→15:45)
[2016-09-01] MEDS ORDERED: SODIUM CHLORIDE 0.9% FLUSH 10 ML FLUSH IV FLUSH PRN ×2 (07:30→11:15)
--- NOTE | 2016-09-01 07:41 | HHI.CCPN ---
Subjective Remarks/Hospital Course Unable to obtain history from patient as he was intubated in the ED prior to admission. I attempted to call Jesse Veliz who is a friend listed as his next of kin contact but there was no answer. History obtained from EMR and discussion with Dr. Villavicencio. 71-year-old male with past medical history of COPD on home O2, hypertension, diabetes, history of paroxysmal atrial flutter on chronic anticoagulation with Eliquis, testicular cancer, hepatitis C, alcohol abuse who presented to [facility] emergency department via E VAC with severe respiratory distress. He indicated to the ED physician that he been feeling poorly for 2 days and had had a subjective fever. Reportedly sats were 94% at the scene. He was given albuterol treatment. C Pap was attempted but he was unable to tolerate. He was given Lasix 100 mg IV because he carried a history of CHF. He was severely dyspneic on arrival and was intubated for impending respiratory failure. He was in A. fib RVR with rate in the 120s. He has been administered Cardizem 20 mg IV total. Heart rate remains in the 120s. He received Duoneb x2 and Solumedrol 125 mg IV. He is in acute renal failure and acute hypercapnic respiratory failure Subjective 09/01: Patient hypotensive overnight requiring placement of central line for vasopressor support. Essentially anuric since 2 AM. Arousable and does follow commands on the ventilator. Potassium remains elevated and he received Kayexalate and sodium bicarbonate pushes overnight along with D50/insulin. Recheck at 10 AM. No peak T waves on monitor. Objective Vital Signs Date Time Temp Pulse Resp B/P Pulse Ox O2 Delivery O2 Flow Rate FiO2 09/01/16 06:00 113 09/01/16 04:01 95 40 09/01/16 04:00 98.6 18 94/55 09/01/16 01:17 Ventilator 08/31/16 18:10 15 Result Diagram: 08/31/16 1805 09/01/16 0326 Other Results Microbiology Date/Time Procedure Status Source Growth 08/31/16 23:20 Aerobic Blood Culture Received Blood Peripheral Pending 08/31/16 23:20 Anaerobic Blood Culture Received Blood Peripheral Pending Imaging Last Impressions Chest X-Ray 08/31/16 0123 Signed Impressions: Service Date/Time: Wednesday, August 31, 2016 18:25 - CONCLUSION: No acute abnormality seen. ET tube is in good position. Arash Chávez MD Renal Ultrasound 08/31/16 0000 Signed Impressions: Service Date/Time: Wednesday, August 31, 2016 23:47 - CONCLUSION: Diffuse cortical thinning of both kidneys. Scattered ascites throughout the abdomen.. Olvin Guzman MD Objective Remarks GENERAL: 71-year-old male, heavily bearded and appears stated age resting in bed in no acute distress on the ventilator SKIN: Warm, dry, with no rash HEAD: Atraumatic. Normocephalic. EYES: Pupils equally round and reactive about 3 King's bilaterally. No scleral icterus. No injection or drainage. ENT: No nasal bleeding or discharge. Mucous membranes pink and moist. Oropharynx currently orotracheally intubated. OG tube in place NECK: Trachea midline. No JVD appreciated. Obese. Right IJ CVL clean dry and intact CARDIOVASCULAR: Heart sounds due to body habitus.. Active, RR. S1, S2. No S4. No murmurs, clicks, gallops or rubs appreciated. RESPIRATORY: Very distant breath sounds with poor air movement bilaterally. Positive Surgery wheeze throughout all lung chen. GASTROINTESTINAL: Abdomen protruberant, soft, with some mild distension, no tenderness, no rebound or guarding. As the session splash. Bowel sounds present MUSCULOSKELETAL: Extremities without clubbing, cyanosis. There is 1 + pitting pretibial edema. Bilateral anterior tibial scarring/hold NEUROLOGICAL: Awake and alert, nodding head appropriately to questions. Its thumbs up to command bilateral upper extremity. Wiggles toes. Cranial nerves II through grossly intact. Strength is equal symmetric bilaterally grossly. Withdraws to pain/sensation appears intact. Urinary Catheter: Yes Assessment to: Continue Aaron insert reason: Prolonged Immobilization Vascular Central Line Catheter: Yes Assessment to: Continue Date of Insertion: Sep 01, 2016 Line: Central Venous Catheter Side: Right Location: Internal, Jugular A/P Assessment and Plan NEURO/PSYCH: Anxiety EtOH abuse - 6-8 drinks of hard liquor daily History of migraine headache Patient is currently on propofol at 30 mics grams per kilogram minutes/fentanyl drip at 50 mics grams per hour for sedation/analgesia while intubated Goal of RA SS -2 Daily sedation vacation Continue BuSpar 5 tid for anxiety disorder Monitor for signs and symptoms of alcohol withdrawal/protocol initiated Thiamine 100 mg IV daily/folic acid 1 mg daily/multivitamin 1 tablet daily for EtOH abuse RESP: Acute hypercapnic respiratory failure Acute COPD exacerbation MAGO - not on CPAP Tobacco abuse/ongoing one half pack per day PRVC 16/tidal volume around 550/1.0/5/40 Ventilator bundle DuoNeb every 4 hours. Albuterol every 2 hours as needed for wheezing. Solu-Medrol 60 mg IV every 6 hours. Added Pulmicort 2/0.5 one inhalation twice a day Chest x-ray 08/31 revealed no focal protruded Home medications include Spiriva 18 mg 1 capsule daily and Symbicort 160/4.52 puffs twice a day. Patient is also due nebs every 6 hours as needed home. Nicotine patch continued 21 mg per day. CV: History of Hypertension Paroxysmal atrial fibrillation with RVR Chronic diastolic heart failure with preserved EF Currently normal saline at 100 cc an hour Added Ranjeet-Synephrine for vasopressor support keep MAP greater than 65 Continue amiodarone 200 daily atrial fibrillation Currently on Cardizem drip at 15 mg/h for now for rate control. On Cardizem 360 by mouth daily at home. Troponin is 0.02. Will follow-up serial troponins. Echo 04/26/16 - EF 50-55%, no regional wall motion abnormality. Overnight loss prevention coordinator ordered limited echo. Holding lisinopril 10 mg by mouth daily in light of acute kidney injury and ongoing hypotension Received Lasix 100 mg IV in ED. Normally on Lasix 40 mg by mouth daily. GI: History of hepatitis C unknown treatment status GERD OGT to LIWS Nothing by mouth for now. Protonix for GI prophylaxis Lziz-Colace for bowel regimen FEN/RENAL: Acute kidney injury - baseline creatinine around 0.9 07/17 Hyperkalemia Hypermagnesemia Hyperphosphatemia Hyponatremia Renal ultrasound revealed diffuse cortical thickening without hydronephrosis. FeNa shows prerenal indices. Urine sodium less than 75 on Lasix so likely dehydrated. Urine eosinophils negative. Received 100 mg IV Lasix. Currently normal saline at 100 cc an hour. CVP is pending.. Kayexalate, D50, insulin and bicarbonate given for hyperkalemia. Likely need hemodialysis. No peak T waves noted on telemetry. Check potassium at 10 AM. Nephrology consultation ID: Obtain pancultures. Received Levaquin. We'll switched to Rocephin 1 g IV every 24 hours and Zithromax 500 mg every 24 hours. Blood cultures/sputum cultures /influenza all pending HEME/ONC: History of non-small cell carcinoma status post right lower lobe lobectomy History of testicular cancer status post right orchiectomy Leukocytosis Normocytic anemia NOAC use Monitor CBC daily. Follow trends Coags within normal limits. Hold Eliquis in light of multiple procedures likely be performed today. Resume ENDO: DM (per prior records, no meds on med rec) Low-dose insulin sliding scale every 4 hours while on Solu-Medrol Check TSH Access - Right IJ CVL -day #1 placed / Prophylaxis - GI - Protonix - DVT - SCD/holding Eliquis in light of multiple procedures likely to be performed today. Resumewhen clinically indicated. Full code Patient is critically ill with multisystem organ failure requiring close monitoring potassium and likely multiple procedures including dialysis today. Is currently resulted in a depth. This should be critical care time 35 minutes Ean Mcgregor MD Sep 01, 2016 07:41
[2016-09-01] MEDS: RESP: BUDESONIDE 0.5 MG/2 ML NEB NEB SCH ×2 (07:52→19:29)
[2016-09-01] MEDS ORDERED: RESP: BUDESONIDE 0.5 MG/2 ML NEB NEB SCH (08:00)
--- NOTE | 2016-09-01 08:03 | RADRPT ---
EXAM DATE/TIME: 09/01/2016 07:29 [facility] COMPARISON: CHEST SINGLE AP, September 01, 2016, 3:44. INDICATIONS : Evaluate central line placement MEDICAL HISTORY : Myocardial infarction. Chronic obstructive pulmonary disease. Congestive heart failure SURGICAL HISTORY : Myocardial infarction. Chronic obstructive pulmonary disease. Congestive ENCOUNTER: Subsequent ACUITY: 2 days PAIN SCORE: Non-responsive. LOCATION: Bilateral chest FINDINGS: Endotracheal tube, enteric tube and right jugular line identified. The tip of the central venous cath eter overlies the expected location of the SVC. Endotracheal tube tip at the inferior margin of the c lavicles. NG tube courses beneath the inferior margin of the film. There is no consolidation or effus ion could not elevation of the right hemidiaphragm. CONCLUSION: Right jugular line noted as above. Theo Hsieh MD on September 01, 2016 at 8:00 Board Certified Radiologist. This report was verified electronically.
[2016-09-01] MEDS: busPIRone HCL 5 MG TAB PO SCH ×3 (09:00→16:53)
[2016-09-01] MEDS ORDERED: MULTIVITAMINS/MINERALS THERAPEUTIC TAB PO SCH (09:00)
[2016-09-01] MEDS: NICOTINE 21 MG/24 HR PATCH T-DERMAL SCH (09:00)
[2016-09-01] MEDS ORDERED: SODIUM CHLORIDE 0.9% FLUSH 10 ML FLUSH IV FLUSH SCH (09:00)
[2016-09-01] MEDS: SODIUM CHLORIDE 0.9% FLUSH 10 ML FLUSH IVF SCH (09:00)
[2016-09-01] MEDS: ARTIFICIAL TEARS OPTH SOLN 15 ML BTL EACH EYE SCH ×4 (09:00→18:00)
[2016-09-01] MEDS ORDERED: ASPIRIN EC 81 MG TABEC PO SCH (09:00)
[2016-09-01] MEDS ORDERED: APIXABAN 5 MG TABLET OG-TUBE SCH (09:00)
[2016-09-01] MEDS: REMOVE OLD PATCH-NICOTINE T-DERMAL SCH (09:00)
[2016-09-01] MEDS ORDERED: DOCUSATE SODIUM 50 MG/SENNA 8.6 MG TAB PO SCH (09:00)
[2016-09-01] MEDS: SODIUM CHLORIDE 0.9% FLUSH 10 ML FLUSH IV FLUSH SCH ×2 (09:00→22:34)
[2016-09-01] MEDS: AZITHROMYCIN INJ 500 MG in SODIUM CHLOR 0.9% 250 ML INJ 250 ML IV SCH (09:11)
[2016-09-01] MEDS: PANTOPRAZOLE SODIUM 40 MG VIAL IV SCH (09:11)
[2016-09-01] MEDS: ASPIRIN 81 MG CHEW TAB CHEW SCH (09:13)
[2016-09-01] MEDS: MULTIVITAMINS/MINERALS THERAPEUTIC TAB OG-TUBE SCH (09:13)
[2016-09-01] MEDS: FOLIC ACID 1 MG TAB OG-TUBE SCH (09:13)
[2016-09-01] MEDS: AMIODARONE 200 MG TAB PO SCH (09:13)
[2016-09-01] MEDS: THIAMINE INJ 100 MG in SODIUM CHLORIDE 0.9% INJ 100 ML IV SCH (09:15)
[2016-09-01] MEDS: SEVELAMER CARBONATE 800 MG TAB PO SCH ×3 (09:28→16:53)
[2016-09-01 09:29] LABS: BLOOD GAS CARBOXYHEMOGLOBIN 1.2 % (0-4); BLOOD GAS HCO3 23 mmol/L (22-26); BLOOD GAS METHEMOGLOBIN 1.1 % (0-2); BLOOD GAS O2 HGB SATURATION 96 % (90-100); BLOOD GAS OXYGEN CONTENT 14.8 Vol % (12.0-20.0); BLOOD GAS PCO2 61 mmHg (38-42); BLOOD GAS PO2 125 mmHg (61-120); BLOOD GAS TOTAL HGB 10.8 G/DL (12.0-16.0); CRITICAL VALUE YES; DRAW SITE LT RADIAL; FIO2 40 %; NUMBER OF ARTERIAL PUNCTURES 1; OXYGEN DEVICE VENTILATOR; STAT NO; TEMP CORR TO 98.6; ULNAR PULSE PRESENT; VENT SETTINGS SEE COMMENTS
[2016-09-01] MEDS: CHLORHEXIDINE 0.12% (ORAL KIT) 15 ML CUP MT SCH ×2 (09:45→22:34)
--- NOTE | 2016-09-01 09:57 | ECHRPT ---
Indication: assess chf CONCLUSIONS BP: / HR: Rhythm: MEASUREMENTS (Male / Female) Normal Values Technical Quality:Technically difficult study, Poo r 2D ECHO LV Diastolic Diameter PLAX 3.7 cm 4.2 - 5.9 / 3.9 - 5.3 cm LV Systolic Diameter PLAX 2.6 cm IVS Diastolic Thickness 0.8 cm 0.6 - 1.0 / 0.6 - 0.9 cm LVPW Diastolic Thickness 0.9 cm 0.6 - 1.0 / 0.6 - 0.9 cm LV Relative Wall Thickness 0.4 RV Internal Dim ED PLAX 2.5 cm FINDINGS LEFT VENTRICLE The left ventricle is not well visualized. The left ventricular systolic function is hyperdynamic with an estimated ejection fraction in the ra nge of 65- 70%. There was limited left ventricular wall motion assessment due to poor endocardial visualization. RIGHT VENTRICLE The right ventricle was not well visualized. LEFT ATRIUM The left atrium was not well visualized. RIGHT ATRIUM The right atrium is not well visualized. ATRIAL SEPTUM The interatrial septum not well visualized. AORTA The aortic root and proximal ascending aorta are not well visualized. MITRAL VALVE The mitral valve is not well visualized. AORTIC VALVE The aortic valve is not well visualized. TRICUSPID VALVE The tricuspid valve is not well visualized. PULMONARY VALVE The pulmonary valve is not well visualized. VESSELS The inferior vena cava was not well visualized. PERICARDIUM No pericardial effusion. Dimitris King MD (Electronically Signed) Final Date:01 September 2016 09:56
[2016-09-01 10:06] LABS: AUTOMATED NEUTROPHIL # 10.6 TH/MM3 (1.8-7.7); BASOPHIL % 0.2 % (0.0-2.0); HEMATOCRIT 33.1 % (39.0-51.0); HEMO FLAGS DIFF FINAL; LYMPH % 1.4 % (9.0-44.0); LYMPHOCYTE # 0.2 TH/MM3 (1.0-4.8); MEAN CELL VOLUME 88.8 FL (80.0-100.0); MEAN CORPUSCULAR HEMOGLOBIN 28.9 PG (27.0-34.0); MEAN CORPUSCULAR HGB CONC 32.5 % (32.0-36.0); NEUT % 93.4 % (16.0-70.0); PLATELET COUNT 297 TH/MM3 (150-450); RED BLOOD COUNT 3.73 MIL/MM3 (4.50-5.90); RED CELL DISTRIBUTION WIDTH 16.7 % (11.6-17.2); WHITE BLOOD COUNT 11.4 TH/MM3 (4.0-11.0)
[2016-09-01 10:50] LABS: ANION GAP 10 MEQ/L (5-15); BICARBONATE 28.2 MEQ/L (21.0-32.0); BLOOD UREA NITROGEN 54 MG/DL (7-18); CHLORIDE 94 MEQ/L (98-107); CREATINE KINASE 549 U/L (39-308); GLOMERULAR FILTRATION RATE 11 ML/MIN (>89); POTASSIUM 5.8 MEQ/L (3.5-5.1); SODIUM (NA) 132 MEQ/L (136-145)
[2016-09-01 11:06] LABS: CKMB 12.4 NG/ML (0.5-3.6)
[2016-09-01] MEDS ORDERED: SODIUM CHLOR 0.9% 1000 ML INJ 1,000 ML IV PRN ×2 (11:12)
[2016-09-01] MEDS ORDERED: NITROGLYCERIN 0.4 MG SL 25 TABS/BTL SL PRN (11:15)
[2016-09-01] MEDS ORDERED: HEPARIN SODIUM - IV 10,000 UNITS/10 ML VIAL IVF PRN (11:15)
[2016-09-01] MEDS ORDERED: ACETAMINOPHEN 325 MG TAB PO PRN (11:15)
[2016-09-01] MEDS ORDERED: GELATIN 12 MM/7 MM FOAM TOP PRN (11:15)
[2016-09-01] MEDS ORDERED: diphenhydrAMINE HCL 25 MG CAP PO PRN (11:15)
[2016-09-01] MEDS ORDERED: cloNIDine HCL 0.1 MG TAB PO PRN ×2 (11:15→11:45)
[2016-09-01 11:34] LABS: BACTERIA, URINE RARE /hpf; BLOOD, URINE MOD (NEG); GLUCOSE,URINE NEG (NEG); HYALINE CAST, URINE 15 /lpf (RARE); KETONE, URINE NEG (NEG); MUCUS URINE FEW /lpf (OCC); NITRITE,URINE NEG (NEG); SQUAMOUS EPITHELIAL CELL URINE 1 /hpf (0-5); TRANSITIONAL EPI CELLS, URINE <1 /hpf; URINE COLOR YELLOW (YELLW/STRAW)
--- NOTE | 2016-09-01 11:34 | PD.PROCEDR ---
Procedure Note Procedure DATE: 08/31/2006 HEMODIALYSIS LINE PLACEMENT: Right internal jugular vein. Ultrasound-guided INDICATION: Hemodialysis access CONSENT Informed consent for procedure was obtained. DESCRIPTION OF THE PROCEDURE The patient was placed in supine position. The skin was cleansed with Chloraprep. Additional barrier precautions included large sterile drape, sterile gloves, sterile gown, face mask, and hat. 1 % lidocaine was used for local anesthesia. Under direct ultrasound guidance and on initial attempt, the vein was accessed with an introducer needle. The guide wire was advanced and the tract was dilated 3. Using Seldinger technique a 11.5 [place] 20 cm dual- lumen hemodialysis catheter was advanced to a depth of 16 centimeters. The guide wire was removed. All ports had good return of dark venous blood and flushed easily with saline. The central line was secured with 2.0 silk. A sterile dressing with antibiotic disc was applied. ESTIMATED BLOOD LOSS: Minimal COMPLICATIONS: No apparent complications. STAT chest x-ray pending at time of dictation Ean Mcgregor MD Sep 01, 2016 11:34
[2016-09-01 11:40] LABS: COMMENT (UR) CATH-CULTURE IND; CULTURE IF INDICATED CATH CULTURE IND
[2016-09-01] MEDS ORDERED: HEPARIN SODIUM - IV 2,000 UNITS/2 ML VIAL IV FLUSH PRN (11:45)
--- NOTE | 2016-09-01 12:11 | RADRPT ---
EXAM DATE/TIME: 09/01/2016 11:44 [facility] COMPARISON: CHEST SINGLE AP, September 01, 2016, 7:29. INDICATIONS : Central line placement. MEDICAL HISTORY : Congestive heart failure. Myocardial infarction. Chronic obstructive pulmonary disease. SURGICAL HISTORY : Lobectomy, right. ENCOUNTER: Initial ACUITY: 1 day PAIN SCORE: Non-responsive. LOCATION: Right chest FINDINGS: Right jugular line tip overlies the SVC as well as a right jugular line with tip at the SVC distally. Endotracheal tube at the inferior margin of clavicles. NG tube courses beneath the diaphragm. EKG le ads overlie the chest. There is elevation of the right hemidiaphragm. No consolidation. Heart size no rmal. CONCLUSION: There are 2 right jugular central venous catheters as above. Theo Hsieh MD on September 01, 2016 at 12:08 Board Certified Radiologist. This report was verified electronically.
--- NOTE | 2016-09-01 12:34 | MB ---
cc: KATHRYN LITTLE MD DATE OF CONSULTATION: 09/01/2016 REASON FOR CONSULTATION: Acute renal failure management. HISTORY OF PRESENT ILLNESS This is a 71-year-old male with history of COPD on home oxygen as well as hypertension, diabetes, A-flutter, treated with Eliquis, testicular cancer, Hepatitis C and alcohol abuse. The patient presented to the emergency room last night with respiratory distress. He was initially given some Lasix, given his history of CHF, however, his respiratory status rapidly deteriorated and the patient was intubated. The patient was found to have atrial fibrillation with RVR as well with heart rate in the 120s. He was treated with Cardizem for this. The patient overnight remained intubated and is on pressor support with a systolic blood pressure in the 90s, on Ranjeet-Synephrine. His renal function gradually deteriorated and he is anuric at this point. The patient's creatinine recently was 0.91 in July of this year. He presented with a creatinine of 5.1 which increased up to 5.4. He had an initial potassium of 5.9 which increased to 6.2. He was medically managed for this and the potassium came down slightly to 5.8. His troponins were less than 0.02 otherwise. Nephrology was consulted for further evaluation. At this time the patient is intubated and sedated. REVIEW OF SYSTEMS: Unobtainable. PAST MEDICAL HISTORY: 1. COPD on home O2. 2. Obstructive sleep apnea. 3. Hypertension. 4. Diabetes, apparently borderline diabetes, on no medications. 5. Paroxysmal atrial fibrillation on Eliquis for chronic anticoagulation. 6. Hepatitis C. 7. Testicular cancer, status post orchiectomy. 8. GERD. 9. Lung cancer, status post chemotherapy. 10. Right lower lobectomy. PAST SURGICAL HISTORY: 1. Partial liver resection. 2. Orchiectomy for testicular cancer. 3. Right lower lobectomy. 4. Hand surgery. FAMILY HISTORY: Unobtainable. SOCIAL HISTORY: Apparent history of alcohol use with 6 to 8 drinks of bourbon a day. History of 1/2 pack of cigarettes per day. The patient apparently lives with the room mate. MEDICATIONS AT HOME: Unknown. ALLERGIES: NO KNOWN DRUG ALLERGIES. PHYSICAL EXAMINATION: At the time of evaluation, temperature 98.6, pulse 113, respiratory rate 18, on 40% FIO2. Blood pressure 94/55 with Ranjeet-Synephrine. GENERAL: Intubated, sedated. HEENT: Neck soft, supple. CARDIAC: Tachycardia. PULMONARY: Decreased breath sounds bilaterally, rhonchi. ABDOMEN: Distended. Decreased bowel sounds. EXTREMITIES: 2+ pitting edema bilaterally. LABORATORY FINDINGS: Sodium 132, potassium 5.8, chloride 94, bicarb 28.2, BUN 54, creatinine 5.4. Glucose 122, calcium 8.2. CK 549, alk phos 156. Troponin less than 0.02. White count 11.4, hemoglobin 10.8, hematocrit 33.1 with platelet count of 297. Urinalysis with trace protein, few mucous. No urine eosinophils seen. ASSESSMENT AND PLAN: 1. Acute kidney injury. The patient had a creatinine of 0.9 in July of this year. He has developed acute kidney injury secondary to hypotension and shock. He has an underlying history of CHF as well as ongoing alcohol use which may have contributed to this respiratory failure. A renal ultrasound was performed which showed signs of diffuse cortical thinning suggestive of some underlying chronic kidney disease. At this point the patient is intubated an anuric. Given his elevated potassium as well as decreasing renal function, we will go ahead and start hemodialysis today. We will try conventional intermittent hemodialysis, ultrafiltration as tolerated for clearance of potassium and fluids. May further repeat dialysis tomorrow if needed versus given the patient a day to further stabilize. However, will continue to monitor daily. Renal dose medications and antibiotics. Continue to monitor. 2. Respiratory failure. The patient apparently has clear lungs on a chest x-ray. It is unclear what the reason for his respiratory failure is. It may be secondary to alcohol use or possible intoxicants. Will check a drug screen, however, the patient has had minimal urine output at this point. There is no significant anion gap to adjust any unusual ingestion of substances. The patient does have lower extremity edema which may be suggestive of possible DVT vs CHF. I will go ahead and order a lower extremity duplex to further evaluate this. Continue to follow up with critical care. The patient is intubated at this time. Will do ultrafiltration as tolerated. 3. The patient is in shock. He is on pressor support. Continue to wean pressors as tolerated. 4. A-fib with RVR. The patient presented with A-fib with RVR. He was treated with Cardizem. His heart rate is in the 110s now. He has been on chronic anticoagulation with Eliquis. Continue to monitor. 5. Hyperkalemia. Potassium is 5.8. Will do dialysis today for removal of potassium, continue to monitor. 6. History of testicular cancer. Continue to monitor. 7. Diabetes. Continue to monitor. 8. Hypertension. Continue to monitor. 9. Hepatitis C. Continue to monitor. MD MISTI JulienP/CHRISTIANNE /11:25 AM /11:55 AM MTDD
[2016-09-01 12:46] LABS: CORTISOL 61.6 MCG/DL
[2016-09-01] MEDS: GENTAMICIN SULFATE (DIALYSIS USE ONLY) 20 MG/2 ML VIAL IV PRN (12:48)
[2016-09-01] MEDS: ALBUMIN HUMAN 25% 25 GM/100 ML BAGP IV PRN (12:48)
[2016-09-01] MEDS: HEPARIN SODIUM - IV 10,000 UNITS/10 ML VIAL PRN (12:48)
[2016-09-01] MEDS: MANNITOL 12.5 GM/50 ML VIAL IV PRN (12:49)
[2016-09-01] MEDS: SODIUM CHLOR 0.9% 1000 ML INJ 1,000 ML IV PRN (12:49)
[2016-09-01] MEDS: HYDROCORTISONE SOD SUCCINATE 100 MG VIAL IV PUSH SCH ×2 (13:17→22:35)
[2016-09-01] MEDS: PHENYLEPHRINE INJ 160 MG in DEXTROSE 5% IN WATE 500 ML INJ 484 ML IV SCH ×2 (13:18)
[2016-09-01] MEDS: VASOPRESSIN INJ 40 UNITS in DEXTROSE 5% IN WATER 100ML INJ 98 ML IV SCH ×2 (13:18)
[2016-09-01] MEDS: DILTIAZEM INJ 125 MG in SODIUM CHLORIDE 0.9% INJ 100 ML IV SCH (13:20)
--- NOTE | 2016-09-01 13:34 | EKG ---
Date Performed: 08/31/2016 Time Performed: 18:28:44 PTAGE: 71 years EKG: ATRIAL FIBRILLATION WITH RAPID VENTRICULAR RESPONSE MARKED RIGHT AXIS DEVIATION RIGHT BUNDL E BRANCH BLOCK Compared to PREVIOUS TRACING , the Right bundle branch block is new ABNORMAL ECG INTERPRETATION BASED ON A DEFAULT AGE OF 40 YEARS PREVIOUS TRACIN07/16/2016 22.18 DOCTOR: Neela Akbar Interpretating Date/Time 09/01/2016 13:34:13
[2016-09-01] MEDS ORDERED: Vancomycin Consult Pharmacy 1 EA OTHER PRN (15:00)
[2016-09-01] MEDS ORDERED: NOREPINEPHRINE INJ 4 MG in SODIUM CHLOR 0.9% 250 ML INJ 246 ML IV SCH (15:00)
[2016-09-01 15:06] LABS: AMPHETAMINE, URINE NEG (NEG); BARBITURATES, URINE NEG (NEG); COCAINE, URINE NEG (NEG)
--- NOTE | 2016-09-01 15:35 | PD.PROCEDR ---
Procedure Note Procedure DATE: 09/01/2016 PROCEDURE: Right femoral arterial catheter placement INDICATION: Hemodynamic access DETAILS OF PROCEDURE The patient was placed in supine position. The skin was cleansed with Chloraprep. Additional barrier precautions included large sterile drape, sterile gloves, sterile gown, face mask, and hat. 1% lidocaine was used for local anesthesia. Under direct ultrasound guidance and on the initial attempt, the artery was accessed with an introducer needle. The guide wire was advanced. Using Seldinger technique 20-gauge gauge arterial catheter was placed. The guide wire was removed. The catheter was connected to a transducer line and flushed with saline. The video monitor displayed normal arterial wave forms. The catheter was secured with 2-0 silk. A sterile dressing with antibiotic disc was applied. Please note 2 additional attempts initially tried in the left femoral vein without success. ESTIMATED BLOOD LOSS: minimal COMPLICATIONS: None Ean Mcgregor MD Sep 01, 2016 15:35
[2016-09-01] MEDS ORDERED: DIATRIZOATE MEGLUM/DIATRIZOATE SOD 9 ML CUP PO ONE (15:45)
[2016-09-01 15:48] LABS: BLOOD GAS BASE EXCESS -2.7 mmol/L (-2-2); BLOOD GAS CARBOXYHEMOGLOBIN 1.3 % (0-4); BLOOD GAS HCO3 24 mmol/L (22-26); BLOOD GAS METHEMOGLOBIN 1.2 % (0-2); BLOOD GAS O2 HGB SATURATION 96 % (90-100); BLOOD GAS OXYGEN CONTENT 13.8 Vol % (12.0-20.0); BLOOD GAS PCO2 65 mmHg (38-42); BLOOD GAS PO2 122 mmHg (61-120); BLOOD GAS TOTAL HGB 10.1 G/DL (12.0-16.0); CRITICAL VALUE YES; DRAW SITE ART LINE; FIO2 40 %; OXYGEN DEVICE VENTILATOR; STAT NO; TEMP CORR TO 98.6; VENT SETTINGS SEE COMMENTS
[2016-09-01] MEDS ORDERED: CEFEPIME INJ 2,000 MG in SODIUM CHLORIDE 0.9% INJ 100 ML IV PRN (16:00)
[2016-09-01] MEDS: metroNIDAZOLE 500 MG INJ 100 ML IV SCH ×2 (16:53→22:34)
[2016-09-01] MEDS ORDERED: RESP: ALBUTEROL 2.5MG/0.5ML CONTINUOUS NEB 12-PACK NEB ONE (17:30)
--- NOTE | 2016-09-01 18:29 | RADRPT ---
EXAM DATE/TIME: 09/01/2016 16:09 [facility] COMPARISON: No previous studies available for comparison. INDICATIONS : Bilateral leg swelling. MEDICAL HISTORY : Myocardial infarction. Congestive heart failure. Emphysema. Syncope. Chest pain. Irregular heartbeat. COPD. HTN. Asthma. Sleep apnea. Dsypnea. Ulcer. Testicular cancer. Lung cancer. Clotting problems. H epatitis. Arthritis. SURGICAL HISTORY : Right liver lobe removed. Right hand. ENCOUNTER: Subsequent ACUITY: 1 day PAIN SCORE: Non-responsive LOCATION: Bilateral leg. TECHNIQUE: Venous ultrasound of the left and right leg was performed from the inguinal ligament to the proximal calf. Real-time, color Doppler and spectral tracing, compression and augmentation techniques were us ed. FINDINGS: RIGHT LEG: There is normal compressibility of the deep venous system from the inguinal region to the proximal ca lf. No echogenic clot is seen in the lumen of the common femoral, femoral, popliteal, and posterior tibial veins. There is a normal response of the venous system to proximal and distal augmentation an d respiration. LEFT LEG: There is nonocclusive thrombus in the left common femoral vein and greater saphenous vein. There is n ormal compressibility of the femoral, popliteal, posterior tibial and peroneal veins. CONCLUSION: Nonocclusive thrombus in the left common femoral and greater saphenous veins. No DVT is seen on the r ight. Arash Chávez MD on September 01, 2016 at 18:23 Board Certified Radiologist. This report was verified electronically.
[2016-09-01] MEDS ORDERED: RESP: ALBUTEROL 2.5 MG/3 ML NEB (SCH) NEB ONE (18:30)
[2016-09-01 19:52] LABS: BLOOD GAS BASE EXCESS -3.5 mmol/L (-2-2); BLOOD GAS CARBOXYHEMOGLOBIN 1.2 % (0-4); BLOOD GAS HCO3 22 mmol/L (22-26); BLOOD GAS METHEMOGLOBIN 1.1 % (0-2); BLOOD GAS O2 HGB SATURATION 98 % (90-100); BLOOD GAS OXYGEN CONTENT 13.8 Vol % (12.0-20.0); BLOOD GAS PCO2 49 mmHg (38-42); BLOOD GAS PO2 254 mmHg (61-120); BLOOD GAS TOTAL HGB 9.6 G/DL (12.0-16.0); TEMP CORR TO 98.6
[2016-09-01 19:53] LABS: CRITICAL VALUE YES; DRAW SITE ART LINE; FIO2 40 %; OXYGEN DEVICE VENTILATOR; STAT YES; VENT SETTINGS SEE COMMENTS
--- NOTE | 2016-09-01 20:43 | RADRPT ---
EXAM DATE/TIME: 09/01/2016 20:31 [facility] COMPARISON: No previous studies available for comparison. INDICATIONS : Altered mental status. Severe sepsis, leukocytosis, and respiratory failure. RADIATION DOSE: 39.39 CTDIvol (mGy) MEDICAL HISTORY : Cardiovascular disease. Congestive heart failure. Hypertension.Hepatitis. Liver cancer. Lung cancer. Testicle cancer. SURGICAL HISTORY : Right lobe removed. Partial liver removal. Right testicle removed. ENCOUNTER: Initial ACUITY: 1 day PAIN SCALE: Non-responsive LOCATION: cranial TECHNIQUE: Multiple contiguous axial images were obtained of the head. Using automated exposure control and adj ustment of the mA and/or kV according to patient size, radiation dose was kept as low as reasonably a chievable to obtain optimal diagnostic quality images. DICOM format image data is available electro nically for review and comparison. FINDINGS: CEREBRUM: The ventricles are normal for age. No evidence of midline shift, mass lesion, hemorrhage or acute in farction. No extra-axial fluid collections are seen. POSTERIOR FOSSA: The cerebellum and brainstem are intact. The 4th ventricle is midline. The cerebellopontine angle i s unremarkable. EXTRACRANIAL: The visualized portion of the orbits is intact. SKULL: The calvaria is intact. No evidence of skull fracture. CONCLUSION: No acute disease. Arash Chávez MD on September 01, 2016 at 20:40 Board Certified Radiologist. This report was verified electronically.
[2016-09-01] MEDS: DOCUSATE SODIUM 50 MG/SENNA 8.6 MG TAB PO SCH (21:00)
--- NOTE | 2016-09-01 21:05 | RADRPT ---
EXAM DATE/TIME: 09/01/2016 20:35 [facility] COMPARISON: No previous studies available for comparison. INDICATIONS : Severe sepsis, leukocytosis, and respiratory failure. RADIATION DOSE: 23.43 CTDIvol (mGy) ; Combined studies - Thorax/Abdomen/Pelvis MEDICAL HISTORY : Cardiovascular disease. Congestive heart failure. Hypertension. Hepatitis. Liver cancer. Lung cancer. Testicle cancer. SURGICAL HISTORY : Right lobe removed. Partial liver removal. Right testicle removed. ENCOUNTER: Initial ACUITY: 1 day PAIN SCALE: Non-responsive LOCATION: chest TECHNIQUE: Volumetric scanning of the abdomen and pelvis was performed. Using automated exposure control and ad justment of the mA and/or kV according to patient size, radiation dose was kept as low as reasonably achievable to obtain optimal diagnostic quality images. DICOM format image data is available electro nically for review and comparison. FINDINGS: LOWER LUNGS: The patient is to have a CT examination of the chest.. LIVER: Homogeneous density without lesion. There is no dilation of the biliary tree. No calcified gallston es. SPLEEN: The spleen is small measuring 7.3 cm in height without focal lesion. PANCREAS: Within normal limits. KIDNEYS: The kidneys appears normal for noncontrast CT image. There are multiple irregular mass is seen in the pararenal fat bilaterally being more numerous and larger on the right measuring up to 2 cm. ADRENAL GLANDS: Within normal limits. VASCULAR: There is no aortic aneurysm. Arterial calcifications are seen. BOWEL/MESENTERY: There is an NG tube in place. There is a segment of small bowel that appears thickened in the mid abd omen. The stomach and colon are unremarkable. There is mild intraperitoneal fluid seen around the li katharine and spleen and in the paracolic gutter regions.. ABDOMINAL WALL: Within normal limits. RETROPERITONEUM: There is no lymphadenopathy. BLADDER: There is a Aaron catheter in place. REPRODUCTIVE: Within normal limits. INGUINAL: There is no lymphadenopathy or hernia. MUSCULOSKELETAL: There is degenerative change of the lumbar spine. There is avascular necrosis of the femoral head reg ions. There is some vague sclerosis at the L4 vertebral body. There appears to be fracturing of the r ight lateral aspect of the right transverse process at L4. CONCLUSION: 1. Multiple retroperitoneal mass is seen around the kidneys bilaterally being more numerous and large r on the right. This appearance is quite unusual. Neoplastic processes from metastases may have this appearance but typically metastases would be seen elsewhere. Inflammatory change could have this appe arance but the underlying kidneys appear grossly normal. These are of uncertain etiology. They are am enable to biopsy. 2. Focal area of thickening at the mid small bowel. An area of enteritis could have this appearance. An area of small bowel hemorrhage or infiltrating neoplasm cannot be excluded. 3. Mild ascites. 4. Avascular necrosis of the femoral head. Arash Chávez MD on September 01, 2016 at 20:46 Board Certified Radiologist. This report was verified electronically.
--- NOTE | 2016-09-01 22:48 | RADRPT ---
EXAM DATE/TIME: 09/01/2016 20:35 [facility] COMPARISON: CT THORAX W/O CONTRAST, May 23, 2016, 14:30. INDICATIONS : Severe sepsis, leukocytosis and respiratory failure RADIATION DOSE: 23.34 CTDIvol (mGy) MEDICAL HISTORY : Cardiovascular disease, hypertension, congestive heart failure, hepatitis, liver and lung cancer. SURGICAL HISTORY : Right lobe removed, Partial liver removal. ENCOUNTER: Initial. ACUITY: 1 day PAIN SCALE: Non-responsive. LOCATION: Chest. TECHNIQUE: Volumetric scanning of the chest was performed. Using automated exposure control and adjustment of t he mA and/or kV according to patient size, radiation dose was kept as low as reasonably achievable to obtain optimal diagnostic quality images. DICOM format image data is available electronically for r eview and comparison. FINDINGS: There appears to be a mass in the left suprahilar region. It is difficult to fully define given the lack of contrast in the surrounding vessels. The suspected area measures approximately 2. 5 cm in diameter. There does appear to be some narrowing of the left upper lobe bronchus. There is some patchy increased density seen in the anterior right mid lung and at the posterior media l right mid lung. These areas were present previously. The actually appear less prominent. On the prior exam there were several irregular nodules seen which largely have resolved on the right side. There is fairly exten sive adenopathy seen throughout the mediastinum including the right paratracheal, precarinal, subcarinal, AP window, prevascular and left hilar region. Right hilar adenopathy is not clearly appreciated on this non-contrast CT ex amination. The bony structures are grossly intact. CONCLUSION: 1. Suspicious appearing mass in the left suprahilar region concerning for a primary lung malignancy. In addition there is very prominent adenopathy seen throughout the mediastinum and left hilar region all concerning for a neoplastic disease. 2. There are ill-defined masses seen around the kidneys bilaterally. At the time a read the CT of th e abdomen I was unaware of the CT of the chest findings. The abnormality in the chest makes metastas es responsible for the masses in the pararenal spaces more likely. Arash Chávez MD on September 01, 2016 at 21:08 Board Certified Radiologist. This report was verified electronically.
[2016-09-02] VITALS (36 sets, daily range): BP systolic 81–121; BP diastolic 47–73; PULSE 83–107; RESP 24–33; TEMP 97.9–98.9; O2SAT 93–100
[2016-09-02] MEDS: DILTIAZEM INJ 125 MG in SODIUM CHLORIDE 0.9% INJ 100 ML IV SCH ×2
[2016-09-02] MEDS: INSULIN ASPART SUPPLEMENTAL SCALE SQ SCH ×6 (00:02→19:54)
[2016-09-02] MEDS: SODIUM CHLOR 0.9% 1000 ML INJ 1,000 ML IV SCH ×4 (00:03→21:20)
[2016-09-02 00:38] LABS: HEMATOCRIT 29.1 % (39.0-51.0); REVIEW FLAG FINAL
[2016-09-02 03:13] LABS: ALKALINE PHOSPHATASE 117 U/L (45-117); ALT (GPT) 94 U/L (12-78); ANION GAP 11 MEQ/L (5-15); AST (GOT) 273 U/L (15-37); BICARBONATE 25.6 MEQ/L (21.0-32.0); BLOOD UREA NITROGEN 45 MG/DL (7-18); CHLORIDE 94 MEQ/L (98-107); GLOMERULAR FILTRATION RATE 13 ML/MIN (>89); MAGNESIUM 2.4 MG/DL (1.5-2.5); POTASSIUM 4.5 MEQ/L (3.5-5.1); SODIUM (NA) 131 MEQ/L (136-145); TOTAL BILIRUBIN ADULT 0.6 MG/DL (0.2-1.0)
[2016-09-02] MEDS: metroNIDAZOLE 500 MG INJ 100 ML IV SCH ×4 (03:33→19:54)
[2016-09-02] MEDS: CHLORHEXIDINE GLUCONATE 2 % 1 PACK (2 CLOTHS) TOP SCH (03:34)
[2016-09-02] MEDS: PROPOFOL 1000 MG/100 ML INJ 100 ML IV SCH ×2 (03:34→08:27)
[2016-09-02] MEDS: RESP: ALBUTEROL 2.5 MG/IPRATROPIUM 0.5 MG NEB (SCH) NEB ×6 (04:00→23:44)
[2016-09-02] MEDS: VASOPRESSIN INJ 40 UNITS in DEXTROSE 5% IN WATER 100ML INJ 98 ML IV SCH ×2 (04:04)
[2016-09-02 04:14] LABS: AUTOMATED NEUTROPHIL # 13.4 TH/MM3 (1.8-7.7); BASOPHIL % 0.1 % (0.0-2.0); HEMATOCRIT 29.8 % (39.0-51.0); HEMO FLAGS DIFF FINAL; LYMPH % 1.3 % (9.0-44.0); LYMPHOCYTE # 0.2 TH/MM3 (1.0-4.8); MEAN CELL VOLUME 88.1 FL (80.0-100.0); MEAN CORPUSCULAR HEMOGLOBIN 28.1 PG (27.0-34.0); MEAN CORPUSCULAR HGB CONC 31.9 % (32.0-36.0); MONO % 7.6 % (0.0-8.0); PLATELET COUNT 220 TH/MM3 (150-450); RED BLOOD COUNT 3.38 MIL/MM3 (4.50-5.90); RED CELL DISTRIBUTION WIDTH 16.9 % (11.6-17.2); WHITE BLOOD COUNT 14.7 TH/MM3 (4.0-11.0)
[2016-09-02] MEDS: fentaNYL DRIP 250 ML IV SCH ×2 (04:58→19:55)
[2016-09-02] MEDS: HYDROCORTISONE SOD SUCCINATE 100 MG VIAL IV PUSH SCH ×3 (04:59→21:20)
--- NOTE | 2016-09-02 05:40 | RADRPT ---
EXAM DATE/TIME: 09/02/2016 05:08 [facility] COMPARISON: CHEST SINGLE AP, September 01, 2016, 11:44. INDICATIONS : Shortness of breath, possible pulmonary disease. MEDICAL HISTORY : Chronic obstructive pulmonary disease. Hypertension Carcinoma, testicular. MAGO Hep C A-fib Lung C a SURGICAL HISTORY : Lobectomy. Liver Resection ENCOUNTER: Subsequent ACUITY: 3 days PAIN SCORE: Non-responsive. LOCATION: Bilateral chest FINDINGS: A single view of the chest demonstrates slight elevation right hemidiaphragm. Endotracheal tube 8.5 c m above [place]. Nasogastric tube and right jugular central line are stable in position. Osseous stru ctures are intact. CONCLUSION: 1. Endotracheal tube 8.5 cm above antoinette. This can be advanced 2-3 cm. 2. Chronic elevation right hemidiaphragm. Cale Zepeda MD on September 02, 2016 at 5:38 Board Certified Radiologist. This report was verified electronically.
[2016-09-02 05:44] LABS: BLOOD GAS BASE EXCESS -2.9 mmol/L (-2-2); BLOOD GAS CARBOXYHEMOGLOBIN 1.4 % (0-4); BLOOD GAS HCO3 22 mmol/L (22-26); BLOOD GAS O2 HGB SATURATION 98 % (90-100); BLOOD GAS PCO2 38 mmHg (38-42); BLOOD GAS PO2 207 mmHg (61-120); BLOOD GAS TOTAL HGB 9.9 G/DL (12.0-16.0); CRITICAL VALUE NO; OXYGEN DEVICE VENTILATOR; TEMP CORR TO 98.6
[2016-09-02 05:46] LABS: DRAW SITE ART LINE; FIO2 40 %; STAT NO
[2016-09-02] MEDS: SEVELAMER CARBONATE 800 MG TAB PO SCH ×3 (08:00→15:35)
[2016-09-02] MEDS: RESP: BUDESONIDE 0.5 MG/2 ML NEB NEB SCH ×2 (08:11→19:38)
[2016-09-02] MEDS: AZITHROMYCIN INJ 500 MG in SODIUM CHLOR 0.9% 250 ML INJ 250 ML IV SCH (08:28)
[2016-09-02] MEDS: CHLORHEXIDINE 0.12% (ORAL KIT) 15 ML CUP MT SCH ×2 (08:29→19:54)
[2016-09-02] MEDS: FOLIC ACID 1 MG TAB OG-TUBE SCH (08:37)
[2016-09-02] MEDS: THIAMINE INJ 100 MG in SODIUM CHLORIDE 0.9% INJ 100 ML IV SCH (08:37)
[2016-09-02] MEDS: ASPIRIN 81 MG CHEW TAB CHEW SCH (08:37)
[2016-09-02] MEDS: PANTOPRAZOLE SODIUM 40 MG VIAL IV SCH (08:37)
[2016-09-02] MEDS: busPIRone HCL 5 MG TAB PO SCH ×3 (08:38→17:54)
[2016-09-02] MEDS: AMIODARONE 200 MG TAB PO SCH (08:38)
[2016-09-02] MEDS: MULTIVITAMINS/MINERALS THERAPEUTIC TAB OG-TUBE SCH (08:38)
[2016-09-02] MEDS: DOCUSATE SODIUM 50 MG/SENNA 8.6 MG TAB PO SCH ×2 (08:38→19:54)
[2016-09-02] MEDS: SODIUM CHLORIDE 0.9% FLUSH 10 ML FLUSH IVF SCH (08:38)
[2016-09-02] MEDS: SODIUM CHLORIDE 0.9% FLUSH 10 ML FLUSH IV FLUSH SCH ×2 (08:38→19:55)
[2016-09-02] MEDS: NICOTINE 21 MG/24 HR PATCH T-DERMAL SCH (08:39)
[2016-09-02] MEDS: REMOVE OLD PATCH-NICOTINE T-DERMAL SCH (08:40)
[2016-09-02] MEDS: ARTIFICIAL TEARS OPTH SOLN 15 ML BTL EACH EYE SCH ×3 (08:49→17:54)
--- NOTE | 2016-09-02 10:56 | HHI.CCPN ---
Subjective Remarks/Hospital Course Unable to obtain history from patient as he was intubated in the ED prior to admission. I attempted to call Jesse Veliz who is a friend listed as his next of kin contact but there was no answer. History obtained from EMR and discussion with Dr. Villavicencio. 71-year-old male with past medical history of COPD on home O2, hypertension, diabetes, history of paroxysmal atrial flutter on chronic anticoagulation with Eliquis, testicular cancer, hepatitis C, alcohol abuse who presented to [facility] emergency department via E VAC with severe respiratory distress. He indicated to the ED physician that he been feeling poorly for 2 days and had had a subjective fever. Reportedly sats were 94% at the scene. He was given albuterol treatment. C Pap was attempted but he was unable to tolerate. He was given Lasix 100 mg IV because he carried a history of CHF. He was severely dyspneic on arrival and was intubated for impending respiratory failure. He was in A. fib RVR with rate in the 120s. He has been administered Cardizem 20 mg IV total. Heart rate remains in the 120s. He received Duoneb x2 and Solumedrol 125 mg IV. He is in acute renal failure and acute hypercapnic respiratory failure Subjective 09/01: Patient hypotensive overnight requiring placement of central line for vasopressor support. Essentially anuric since 2 AM. Arousable and does follow commands on the ventilator. Potassium remains elevated and he received Kayexalate and sodium bicarbonate pushes overnight along with D50/insulin. Recheck at 10 AM. No peak T waves on monitor. 09/02 Patient is sedated with Diprivan, Fentanyl and intubated. Afebrile. On Neosyn 110mics, Vasopressin and Cardizem 5mg/hr. HD initiated yesterday with removal 1.5L. Objective Vital Signs Date Time Temp Pulse Resp B/P Pulse Ox O2 Delivery O2 Flow Rate FiO2 09/02/16 08:06 100 35 09/02/16 08:00 97.9 98 24 108/72 99/59 09/01/16 01:17 Ventilator 08/31/16 18:10 15 Intake and Output 09/01/16 09/01/16 09/02/16 08:00 16:00 00:00 Intake Total 479 ml 1263 ml 1756 ml Output Total 0 ml 1625 ml 100 ml Balance 479 ml -362 ml 1656 ml Result Diagram: 09/02/16 0355 09/02/16 0045 Other Results Laboratory Tests Test 09/01/16 09/01/16 09/01/16 09/01/16 12:00 15:40 16:00 19:38 Serum Osmolality 301 MOSM/KG Random Cortisol 61.6 MCG/DL Ethyl Alcohol Level LESS THAN 3 MG/DL Blood Gas Puncture Site ART LINE ART LINE Blood Gas Patient Temperature 98.6 98.6 Blood Gas HCO3 24 mmol/L 22 mmol/L Blood Gas Base Excess -2.7 mmol/L -3.5 mmol/L Blood Gas Oxygen Saturation 96 % 98 % Arterial Blood pH 7.20 7.28 Arterial Blood Partial 65 mmHg 49 mmHg Pressure CO2 Arterial Blood Partial 122 mmHg 254 mmHg Pressure O2 Arterial Blood Oxygen Content 13.8 Vol % 13.8 Vol % Arterial Blood 1.3 % 1.2 % Carboxyhemoglobin Arterial Blood Methemoglobin 1.2 % 1.1 % Blood Gas Hemoglobin 10.1 G/DL 9.6 G/DL Oxygen Delivery Device VENTILATOR VENTILATOR Blood Gas Ventilator Setting SEE COMMENTS SEE COMMENTS Blood Gas Inspired Oxygen 40 % 40 % Lactic Acid Level 1.2 mmol/L Test 09/01/16 09/02/16 09/02/16 09/02/16 23:45 00:45 03:55 05:30 Hemoglobin 9.6 GM/DL 9.5 GM/DL Hematocrit 29.1 % 29.8 % Sodium Level 131 MEQ/L Potassium Level 4.5 MEQ/L Chloride Level 94 MEQ/L Carbon Dioxide Level 25.6 MEQ/L Anion Gap 11 MEQ/L Blood Urea Nitrogen 45 MG/DL Creatinine 4.39 MG/DL Estimat Glomerular Filtration 13 ML/MIN Rate Random Glucose 160 MG/DL Lactic Acid Level 1.2 mmol/L 1.1 mmol/L Calcium Level 8.0 MG/DL Phosphorus Level 5.5 MG/DL Magnesium Level 2.4 MG/DL Total Bilirubin 0.6 MG/DL Aspartate Amino Transf 273 U/L (AST/SGOT) Alanine Aminotransferase 94 U/L (ALT/SGPT) Alkaline Phosphatase 117 U/L Total Protein 6.5 GM/DL Albumin 3.5 GM/DL White Blood Count 14.7 TH/MM3 Red Blood Count 3.38 MIL/MM3 Mean Corpuscular Volume 88.1 FL Mean Corpuscular Hemoglobin 28.1 PG Mean Corpuscular Hemoglobin 31.9 % Concent Red Cell Distribution Width 16.9 % Platelet Count 220 TH/MM3 Mean Platelet Volume 7.2 FL Neutrophils (%) (Auto) 91.0 % Lymphocytes (%) (Auto) 1.3 % Monocytes (%) (Auto) 7.6 % Eosinophils (%) (Auto) 0.0 % Basophils (%) (Auto) 0.1 % Neutrophils # (Auto) 13.4 TH/MM3 Lymphocytes # (Auto) 0.2 TH/MM3 Monocytes # (Auto) 1.1 TH/MM3 Eosinophils # (Auto) 0.0 TH/MM3 Basophils # (Auto) 0.0 TH/MM3 CBC Comment DIFF FINAL Differential Comment Blood Gas Puncture Site ART LINE Blood Gas Patient Temperature 98.6 Blood Gas HCO3 22 mmol/L Blood Gas Base Excess -2.9 mmol/L Blood Gas Oxygen Saturation 98 % Arterial Blood pH 7.37 Arterial Blood Partial 38 mmHg Pressure CO2 Arterial Blood Partial 207 mmHg Pressure O2 Arterial Blood Oxygen Content 14.0 Vol % Arterial Blood 1.4 % Carboxyhemoglobin Arterial Blood Methemoglobin 1.0 % Blood Gas Hemoglobin 9.9 G/DL Oxygen Delivery Device VENTILATOR Blood Gas Ventilator Setting SEE COMMENT Blood Gas Inspired Oxygen 40 % Imaging Last Impressions Chest X-Ray 09/02/16 0600 Signed Impressions: Service Date/Time: Friday, September 02, 2016 05:08 - CONCLUSION: 1. Endotracheal tube 8.5 cm above antoinette. This can be advanced 2-3 cm. 2. Chronic elevation right hemidiaphragm. Cale Zepeda MD Lower Extremity Ultrasound 09/01/16 0000 Signed Impressions: Service Date/Time: Thursday, September 01, 2016 16:09 - CONCLUSION: Nonocclusive thrombus in the left common femoral and greater saphenous veins. No DVT is seen on the right. Arash Chávez MD Head CT 09/01/16 0000 Signed Impressions: Service Date/Time: Thursday, September 01, 2016 20:31 - CONCLUSION: No acute disease. Arash Chávez MD Chest CT 09/01/16 0000 Signed Impressions: Service Date/Time: Thursday, September 01, 2016 20:35 - CONCLUSION: 1. Suspicious appearing mass in the left suprahilar region concerning for a primary lung malignancy. In addition there is very prominent adenopathy seen throughout the mediastinum and left hilar region all concerning for a neoplastic disease. 2. There are ill-defined masses seen around the kidneys bilaterally. At the time a read the CT of the abdomen I was unaware of the CT of the chest findings. The abnormality in the chest makes metastases responsible for the masses in the pararenal spaces more likely. Arash Chávez MD Abdomen/Pelvis CT 09/01/16 0000 Signed Impressions: Service Date/Time: Thursday, September 01, 2016 20:35 - CONCLUSION: 1. Multiple retroperitoneal mass is seen around the kidneys bilaterally being more numerous and larger on the right. This appearance is quite unusual. Neoplastic processes from metastases may have this appearance but typically metastases would be seen elsewhere. Inflammatory change could have this appearance but the underlying kidneys appear grossly normal. These are of uncertain etiology. They are amenable to biopsy. 2. Focal area of thickening at the mid small bowel. An area of enteritis could have this appearance. An area of small bowel hemorrhage or infiltrating neoplasm cannot be excluded. 3. Mild ascites. 4. Avascular necrosis of the femoral head. Arash Chávez MD Renal Ultrasound 08/31/16 0000 Signed Impressions: Service Date/Time: Wednesday, August 31, 2016 23:47 - CONCLUSION: Diffuse cortical thinning of both kidneys. Scattered ascites throughout the abdomen.. Olvin Guzman MD Objective Remarks GENERAL: 71-year-old male resting in bed in no acute distress on the ventilator SKIN: Warm, dry, with no rash HEAD: Atraumatic. Normocephalic. EYES: Pupils equally round and reactive. No scleral icterus. No injection or drainage. ENT: No nasal bleeding or discharge. Mucous membranes pink and moist. Oropharynx currently orotracheally intubated. OG tube in place NECK: Trachea midline. No JVD appreciated. Obese. Right IJ CVL clean dry and intact CARDIOVASCULAR: Heart sounds due to body habitus.. Active, RR. S1, S2. No S4. No murmurs, clicks, gallops or rubs appreciated. RESPIRATORY: Very distant breath sounds with poor air movement bilaterally. Positive Surgery wheeze throughout all lung chen. GASTROINTESTINAL: Abdomen protruberant, soft, with some mild distension, no tenderness, no rebound or guarding. As the session splash. Bowel sounds present MUSCULOSKELETAL: Extremities without clubbing, cyanosis. There is 1 + pitting pretibial edema. Bilateral anterior tibial scarring/hold NEUROLOGICAL: Intubated, sedated Date of Insertion: Sep 01, 2016 Line: Central Venous Catheter Side: Right Location: Internal, Jugular A/P Assessment and Plan NEURO/PSYCH: Anxiety EtOH abuse - 6-8 drinks of hard liquor daily History of migraine headache On Diprivan and Fentanyl infusion for sedation. Daily sedation vacation Goal of RA SS -2 Continue BuSpar 5 tid for anxiety disorder Monitor for signs and symptoms of alcohol withdrawal/protocol initiated Thiamine 100 mg daily/folic acid 1 mg daily/multivitamin 1 tablet daily for EtOH abuse RESP: Acute hypercapnic respiratory failure Acute COPD exacerbation MAGO - not on CPAP Tobacco abuse/ongoing one half pack per day PRVC 25/tidal volume around 550/0.75/5/35 Ventilator bundle DuoNeb every 4 hours. Albuterol every 2 hours as needed for wheezing. On Solucortef 100mg IV Q8 Pulmicort 2/0.5 one inhalation twice a day CT chest: Suspicious appearing mass in the left suprahilar region concerning for a primary lung malignancy. Prominent adenopathy seen throughout the mediastinum and left hilar region all concerning for a neoplastic disease. There are ill-defined masses seen around the kidneys bilaterally Pulm is consulted- Dr. Garcia CV: History of Hypertension Paroxysmal atrial fibrillation with RVR Chronic diastolic heart failure with preserved EF Wean off pressors as beau ( On Neosyn, Vasopressin) monitor HR and BP keep MAP > 65mmHg d/c Cardizem drip, hold Amiodarone in setting of elevated LFT Echo showed EF 65%-70%, technically difficult study. Holding lisinopril 10 mg by mouth daily in light of acute kidney injury and ongoing hypotension Received Lasix 100 mg IV in ED. Normally on Lasix 40 mg by mouth daily. GI: History of hepatitis C unknown treatment status GERD Elevated LFT's OGT to LIWS Start T if US liver is negative -Nepro with goal rate 40ml/hr Protonix for GI prophylaxis Lizz-Colace for bowel regimen Monitor LFT's, check US liver FEN/RENAL: Acute kidney injury - baseline creatinine around 0.9 07/17 Renal ultrasound revealed diffuse cortical thickening without hydronephrosis. FeNa shows prerenal indices. Urine sodium less than 75 on Lasix so likely dehydrated. Urine eosinophils negative. Monitor renal function, I/O's, avoid nephrotoxins. s/p HD yesterday with removal 1.5L. Cr: 4.39 today from 5.41 and UOP: 550ml in 24 hrs. Renal- Dr. Martinez. 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 Follow trends Coags within normal limits. ENDO: DM (per prior records, no meds on med rec) Low-dose insulin sliding scale every 4 hours TSH: 2.77 Access - Right IJ CVL placed 09/01 Prophylaxis - GI - Protonix - DVT - SCD. CCT 30 mins Desi Navarro MD Sep 02, 2016 10:56
--- NOTE | 2016-09-02 13:18 | RADRPT ---
EXAM DATE/TIME: 09/02/2016 11:53 [place] COMPARISON: CT THORAX W/O CONTRAST, September 01, 2016, 20:35. CT ABDOMEN & PELVIS W/O CONTRAST, September 01, 2016, 20:35 . INDICATIONS : Increased lab values. MEDICAL HISTORY : Congestive heart failure. Emphysema. Carcinoma, testicular. Carcinoma, liver & lung. Syncope. Migrain es. Chest pain. Irregular heartbeat. HTN. COPD. Asthma. Sleep apnea. Ulcer. Dyspnea. Arthritis. Clott ing problems. Hepatitis. SURGICAL HISTORY : RL lobe removed. Right hand. Blood transfusions. ENCOUNTER: Initial ACUITY: 1 day PAIN SCORE: Nonresponsive. LOCATION: Bilateral upper quadrant MEASUREMENTS: LIVER: 18.1 cm length COMMON DUCT: 4 mm RIGHT KIDNEY: 11.1 x 5.1 x 6.1 cm SPLEEN: 7.7 cm length FINDINGS: LIVER: Normal echotexture without focal lesion or ductal dilatation. Minimal free fluid is present around t he liver. Flow is not visualized in the main portal vein. COMMON DUCT: No intraluminal mass or stone visualized. GALLBLADDER: Contains no stones, demonstrates no wall thickening or pericholecystic fluid. PANCREAS: The visualized portions are within normal limits. RIGHT KIDNEY: No hydronephrosis, stone or mass. SPLEEN: Small in size despite the nonvisualization of flow in the main portal vein. CONCLUSION: Mild ascites. Nonvisualization of flow in the portal vein. Sivakumar Brush MD FACR on September 02, 2016 at 13:13 Board Certified Radiologist. This report was verified electronically.
--- NOTE | 2016-09-02 16:16 | HHI.NPPN ---
Subjective History of Present Illness 71-year-old with acute renal failure, atrial fibrillation Objective Data Data 09/01/16 09/02/16 19:00 07:00 Intake Total 1263 ml 2947 ml Output Total 1625 ml 525 ml Balance -362 ml 2422 ml Intake IV Total 1263 ml 2597 ml Tube Irrigant 350 ml Output Urine Total 25 ml 525 ml Gastric Drainage Total 100 ml Hemodialysis 1500 ml # Bowel Movements 0 Vital Signs Date Time Temp Pulse Resp B/P Pulse Ox O2 Delivery O2 Flow Rate FiO2 09/02/16 14:34 100 35 09/02/16 14:00 99 09/02/16 12:00 98.4 92 24 90/59 100 102/61 09/02/16 12:00 35 09/02/16 12:00 92 90/59 102/61 09/02/16 12:00 95 09/02/16 11:30 89 24 110/66 100 100/61 09/02/16 11:15 90 24 104/66 100 100/61 09/02/16 11:14 100 35 09/02/16 11:00 86 24 103/64 100 96/59 09/02/16 10:45 90 24 98/63 100 90/61 09/02/16 10:30 83 24 103/65 100 98/62 09/02/16 10:15 85 24 103/66 100 99/61 09/02/16 10:00 85 24 99/63 100 95/60 09/02/16 10:00 93 09/02/16 09:45 85 24 92/64 100 86/56 09/02/16 09:30 87 25 92/59 100 85/55 09/02/16 09:15 93 24 97/65 100 88/53 09/02/16 09:00 96 24 102/63 100 87/54 09/02/16 08:45 98 33 100/63 100 87/54 09/02/16 08:37 104 24 98/59 100 81/51 09/02/16 08:30 98 27 105/69 100 95/57 09/02/16 08:15 99 24 106/62 100 97/57 09/02/16 08:06 100 35 09/02/16 08:00 35 09/02/16 08:00 97.9 98 24 108/72 100 99/59 09/02/16 08:00 91 09/02/16 08:00 98 108/72 99/59 09/02/16 07:45 93 24 116/61 100 102/59 09/02/16 07:30 96 24 115/63 100 105/61 09/02/16 07:15 94 24 118/73 100 107/61 09/02/16 07:00 93 24 121/68 100 109/61 09/02/16 06:00 100 09/02/16 04:01 100 40 09/02/16 04:00 98.6 96 24 120/68 100 110/62 09/02/16 04:00 40 09/02/16 04:00 96 09/02/16 02:00 100 09/02/16 01:03 100 40 09/02/16 00:00 40 09/02/16 00:00 98.8 99 24 120/71 100 117/61 09/02/16 00:00 99 09/01/16 23:15 100 40 09/01/16 22:00 100 09/01/16 20:16 98 100 09/01/16 20:00 98.3 95 24 96/58 100 112/63 09/01/16 20:00 40 09/01/16 20:00 95 09/01/16 19:29 100 40 09/01/16 18:00 97 09/01/16 17:30 40 -: 09/02/16 0355 09/02/16 0045 Physical Exam General Appearance: Well Developed Neck Neck Exam: Neck Supple Pulmonary Resp Exam: Decreased Bases Cardiology CV Exam: Arrhythmia Gastrointestinal/Abdomen GI Exam: Soft, Non-Tender Extremeties Extremities Exam: Trace Edema Assessment/Plan Problem List: (1) Acute renal failure Plan: Creatinine is slowly declining urine output is fair continue to monitor BMP HD yesterday 1.5 L Avoid nephrotoxins Follow BMP (2) Atrial flutter with rapid ventricular response Plan: Stable EF of 70% (3) Congestive heart failure Plan: Continue to monitor Alysha Marquis MD Sep 02, 2016 16:16
[2016-09-02] MEDS: PHENYLEPHRINE INJ 160 MG in DEXTROSE 5% IN WATE 500 ML INJ 484 ML IV SCH ×2 (20:16)
[2016-09-02] MEDS ORDERED: LEVOFLOXACIN 250 MG PREMIX INJ 50 ML IV SCH (23:30)
[2016-09-03] VITALS (19 sets, daily range): BP systolic 92–115; BP diastolic 55–67; PULSE 106–125; RESP 24–26; TEMP 97.8–98.8; O2SAT 96–100
[2016-09-03] MEDS: PROPOFOL 1000 MG/100 ML INJ 100 ML IV SCH (00:48)
[2016-09-03] MEDS: CHLORHEXIDINE GLUCONATE 2 % 1 PACK (2 CLOTHS) TOP SCH (03:43)
[2016-09-03] MEDS: metroNIDAZOLE 500 MG INJ 100 ML IV SCH ×4 (03:43→19:59)
[2016-09-03] MEDS: INSULIN ASPART SUPPLEMENTAL SCALE SQ SCH ×6 (04:00→19:59)
[2016-09-03] MEDS: RESP: ALBUTEROL 2.5 MG/IPRATROPIUM 0.5 MG NEB (SCH) NEB ×6 (04:10→23:27)
[2016-09-03 04:32] LABS: BASOPHIL % 0.1 % (0.0-2.0); HEMATOCRIT 29.6 % (39.0-51.0); HEMO FLAGS DIFF FINAL; LYMPH % 1.1 % (9.0-44.0); LYMPHOCYTE # 0.2 TH/MM3 (1.0-4.8); MEAN CELL VOLUME 87.2 FL (80.0-100.0); MEAN CORPUSCULAR HEMOGLOBIN 28.9 PG (27.0-34.0); MEAN CORPUSCULAR HGB CONC 33.1 % (32.0-36.0); NEUT % 92.8 % (16.0-70.0); PLATELET COUNT 217 TH/MM3 (150-450); RED CELL DISTRIBUTION WIDTH 16.6 % (11.6-17.2); WHITE BLOOD COUNT 15.1 TH/MM3 (4.0-11.0)
[2016-09-03 05:01] LABS: ALT (GPT) 116 U/L (12-78); ANION GAP 9 MEQ/L (5-15); AST (GOT) 249 U/L (15-37); BICARBONATE 25.6 MEQ/L (21.0-32.0); BLOOD UREA NITROGEN 53 MG/DL (7-18); CHLORIDE 99 MEQ/L (98-107); GLOMERULAR FILTRATION RATE 15 ML/MIN (>89); POTASSIUM 4.1 MEQ/L (3.5-5.1); SODIUM (NA) 134 MEQ/L (136-145)
[2016-09-03 05:04] LABS: ALKALINE PHOSPHATASE 116 U/L (45-117); TOTAL BILIRUBIN ADULT 0.6 MG/DL (0.2-1.0)
[2016-09-03] MEDS: HYDROCORTISONE SOD SUCCINATE 100 MG VIAL IV PUSH SCH ×3 (05:05→22:24)
[2016-09-03] MEDS: fentaNYL DRIP 250 ML IV SCH ×2 (05:21→17:20)
[2016-09-03] MEDS: SODIUM CHLOR 0.9% 1000 ML INJ 1,000 ML IV SCH ×2 (07:10→17:27)
[2016-09-03] MEDS: SEVELAMER CARBONATE 800 MG TAB PO SCH ×3 (08:00→17:20)
[2016-09-03] MEDS: CHLORHEXIDINE 0.12% (ORAL KIT) 15 ML CUP MT SCH ×2 (08:00→19:59)
[2016-09-03] MEDS: RESP: BUDESONIDE 0.5 MG/2 ML NEB NEB SCH ×2 (08:23→19:43)
[2016-09-03] MEDS: ARTIFICIAL TEARS OPTH SOLN 15 ML BTL EACH EYE SCH ×3 (09:00→17:27)
[2016-09-03] MEDS: NICOTINE 21 MG/24 HR PATCH T-DERMAL SCH (09:00)
[2016-09-03] MEDS: REMOVE OLD PATCH-NICOTINE T-DERMAL SCH (09:00)
[2016-09-03] MEDS: DOCUSATE SODIUM 50 MG/SENNA 8.6 MG TAB PO SCH ×2 (09:00→19:59)
[2016-09-03] MEDS: busPIRone HCL 5 MG TAB PO SCH ×4 (09:00→17:20)
--- NOTE | 2016-09-03 09:04 | HHI.CCPN ---
Subjective Remarks/Hospital Course Unable to obtain history from patient as he was intubated in the ED prior to admission. I attempted to call Jesse Veliz who is a friend listed as his next of kin contact but there was no answer. History obtained from EMR and discussion with Dr. Villavicencio. 71-year-old male with past medical history of COPD on home O2, hypertension, diabetes, history of paroxysmal atrial flutter on chronic anticoagulation with Eliquis, testicular cancer, hepatitis C, alcohol abuse who presented to [facility] emergency department via [facility] with severe respiratory distress. He indicated to the ED physician that he been feeling poorly for 2 days and had had a subjective fever. Reportedly sats were 94% at the scene. He was given albuterol treatment. C Pap was attempted but he was unable to tolerate. He was given Lasix 100 mg IV because he carried a history of CHF. He was severely dyspneic on arrival and was intubated for impending respiratory failure. He was in A. fib RVR with rate in the 120s. He has been administered Cardizem 20 mg IV total. Heart rate remains in the 120s. He received Duoneb x2 and Solumedrol 125 mg IV. He is in acute renal failure and acute hypercapnic respiratory failure Subjective 09/01: Patient hypotensive overnight requiring placement of central line for vasopressor support. Essentially anuric since 2 AM. Arousable and does follow commands on the ventilator. Potassium remains elevated and he received Kayexalate and sodium bicarbonate pushes overnight along with D50/insulin. Recheck at 10 AM. No peak T waves on monitor. 09/02 Patient is sedated with Diprivan, Fentanyl and intubated. Afebrile. On Neosyn 110mics, Vasopressin and Cardizem 5mg/hr. HD initiated yesterday with removal 1.5L. 09/03 Patient remains intubated and sedated with Diprivan and Fentanyl. Off Vasopressin, Neosyn down to 60 mics from 110. Renal function is improving with Cr: 3.99 from 4.39 Objective Vital Signs Date Time Temp Pulse Resp B/P Pulse Ox O2 Delivery O2 Flow Rate FiO2 09/03/16 08:24 99 35 09/03/16 06:00 106 09/03/16 04:00 96/65 92/57 09/03/16 04:00 98.0 24 7/2/17 01:17 Ventilator 08/31/16 18:10 15 Intake and Output 09/02/16 09/02/16 09/03/16 08:00 16:00 00:00 Intake Total 1191 ml 1165 ml 1630 ml Output Total 425 ml 300 ml 250 ml Balance 766 ml 865 ml 1380 ml Result Diagram: 09/03/16 0400 09/03/16 0400 Other Results Laboratory Tests Test 09/03/16 04:00 White Blood Count 15.1 TH/MM3 Red Blood Count 3.40 MIL/MM3 Hemoglobin 9.8 GM/DL Hematocrit 29.6 % Mean Corpuscular Volume 87.2 FL Mean Corpuscular Hemoglobin 28.9 PG Mean Corpuscular Hemoglobin 33.1 % Concent Red Cell Distribution Width 16.6 % Platelet Count 217 TH/MM3 Mean Platelet Volume 7.4 FL Neutrophils (%) (Auto) 92.8 % Lymphocytes (%) (Auto) 1.1 % Monocytes (%) (Auto) 6.0 % Eosinophils (%) (Auto) 0.0 % Basophils (%) (Auto) 0.1 % Neutrophils # (Auto) 14.0 TH/MM3 Lymphocytes # (Auto) 0.2 TH/MM3 Monocytes # (Auto) 0.9 TH/MM3 Eosinophils # (Auto) 0.0 TH/MM3 Basophils # (Auto) 0.0 TH/MM3 CBC Comment DIFF FINAL Differential Comment Sodium Level 134 MEQ/L Potassium Level 4.1 MEQ/L Chloride Level 99 MEQ/L Carbon Dioxide Level 25.6 MEQ/L Anion Gap 9 MEQ/L Blood Urea Nitrogen 53 MG/DL Creatinine 3.99 MG/DL Estimat Glomerular Filtration 15 ML/MIN Rate Random Glucose 101 MG/DL Calcium Level 7.8 MG/DL Total Bilirubin 0.6 MG/DL Aspartate Amino Transf 249 U/L (AST/SGOT) Alanine Aminotransferase 116 U/L (ALT/SGPT) Alkaline Phosphatase 116 U/L Total Protein 6.0 GM/DL Albumin 3.0 GM/DL Imaging Last Impressions Chest X-Ray 09/02/16 0600 Signed Impressions: Service Date/Time: Friday, September 02, 2016 05:08 - CONCLUSION: 1. Endotracheal tube 8.5 cm above natoinette. This can be advanced 2-3 cm. 2. Chronic elevation right hemidiaphragm. Cale Zepeda MD Liver Ultrasound 09/02/16 Signed Impressions: Service Date/Time: Friday, September 02, 2016 11:53 - CONCLUSION: Mild ascites. Nonvisualization of flow in the portal vein. Sivakumar Brush MD FACR Lower Extremity Ultrasound 09/01/16 Signed Impressions: Service Date/Time: Thursday, September 01, 2016 16:09 - CONCLUSION: Nonocclusive thrombus in the left common femoral and greater saphenous veins. No DVT is seen on the right. Arash Chávez MD Head CT 09/01/16 Signed Impressions: Service Date/Time: Thursday, September 01, 2016 20:31 - CONCLUSION: No acute disease. Arash Chávez MD Chest CT 09/01/16 Signed Impressions: Service Date/Time: Thursday, September 01, 2016 20:35 - CONCLUSION: 1. Suspicious appearing mass in the left suprahilar region concerning for a primary lung malignancy. In addition there is very prominent adenopathy seen throughout the mediastinum and left hilar region all concerning for a neoplastic disease. 2. There are ill-defined masses seen around the kidneys bilaterally. At the time a read the CT of the abdomen I was unaware of the CT of the chest findings. The abnormality in the chest makes metastases responsible for the masses in the pararenal spaces more likely. Arash Chávez MD Abdomen/Pelvis CT 09/01/16 Signed Impressions: Service Date/Time: Thursday, September 01, 2016 20:35 - CONCLUSION: 1. Multiple retroperitoneal mass is seen around the kidneys bilaterally being more numerous and larger on the right. This appearance is quite unusual. Neoplastic processes from metastases may have this appearance but typically metastases would be seen elsewhere. Inflammatory change could have this appearance but the underlying kidneys appear grossly normal. These are of uncertain etiology. They are amenable to biopsy. 2. Focal area of thickening at the mid small bowel. An area of enteritis could have this appearance. An area of small bowel hemorrhage or infiltrating neoplasm cannot be excluded. 3. Mild ascites. 4. Avascular necrosis of the femoral head. Arash Chávez MD Renal Ultrasound 08/31/16 Signed Impressions: Service Date/Time: Wednesday, August 31, 2016 23:47 - CONCLUSION: Diffuse cortical thinning of both kidneys. Scattered ascites throughout the abdomen.. Olvin Guzman MD Objective Remarks GENERAL: 71-year-old male resting in bed in no acute distress on the ventilator SKIN: Warm, dry, with no rash HEAD: Atraumatic. Normocephalic. EYES: Pupils equally round and reactive. No scleral icterus. No injection or drainage. ENT: No nasal bleeding or discharge. Mucous membranes pink and moist. Oropharynx currently orotracheally intubated. OG tube in place NECK: Trachea midline. No JVD appreciated. Obese. Right IJ CVL clean dry and intact CARDIOVASCULAR: Heart sounds due to body habitus.. Active, RR. S1, S2. No S4. No murmurs, clicks, gallops or rubs appreciated. RESPIRATORY: Very distant breath sounds with poor air movement bilaterally. Positive Surgery wheeze throughout all lung chen. GASTROINTESTINAL: Abdomen protruberant, soft, with some mild distension, no tenderness, no rebound or guarding. As the session splash. Bowel sounds present MUSCULOSKELETAL: Extremities without clubbing, cyanosis. There is 1 + pitting pretibial edema. Bilateral anterior tibial scarring/hold NEUROLOGICAL: Intubated, sedated Date of Insertion: Sep 01, 2016 Line: Central Venous Catheter Side: Right Location: Internal, Jugular A/P Assessment and Plan NEURO/PSYCH: Anxiety EtOH abuse - 6-8 drinks of hard liquor daily History of migraine headache On Diprivan and Fentanyl infusion for sedation. Daily sedation vacation Goal of RASS -2 Continue BuSpar 5 tid for anxiety disorder Monitor for signs and symptoms of alcohol withdrawal/protocol initiated Thiamine 100 mg daily/folic acid 1 mg daily/multivitamin 1 tablet daily for EtOH abuse RESP: Acute hypercapnic respiratory failure Acute COPD exacerbation MAGO - not on CPAP Tobacco abuse/ongoing one half pack per day PRVC 24/tidal volume around 550/0.75/5/35 Ventilator bundle DuoNeb every 4 hours. Albuterol every 2 hours as needed for wheezing. On Solucortef 100mg IV Q8 Pulmicort 2/0.5 one inhalation twice a day 09/01 CT chest: Suspicious appearing mass in the left suprahilar region concerning for a primary lung malignancy. Prominent adenopathy seen throughout the mediastinum and left hilar region all concerning for a neoplastic disease. There are ill-defined masses seen around the kidneys bilaterally Pulm is consulted- Dr. Garcia CV: History of Hypertension Paroxysmal atrial fibrillation with RVR Chronic diastolic heart failure with preserved EF Wean off Neosyn monitor HR and BP keep MAP > 65mmHg Amiodarone on hold for elevated LFT Echo showed EF 65%-70%, technically difficult study. Holding lisinopril 10 mg by mouth daily in light of acute kidney injury GI: History of hepatitis C unknown treatment status GERD Elevated LFT's Continue tube feeds- Nepro @ 40ml/hr US liver: Mild ascites. Nonvisualization of flow in the portal vein. Protonix for GI prophylaxis Lizz-Colace for bowel regimen Monitor LFT's, FEN/RENAL: Acute kidney injury - baseline creatinine around 0.9 07/17 Renal ultrasound revealed diffuse cortical thickening without hydronephrosis. Monitor renal function, I/O's, avoid nephrotoxins. s/p HD 09/01 Renal function is improving with Cr 3.99 from 4.39 and UOP: 900 ml in 24 hrs. Renal- Dr. Martinez. 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 Follow trends Coags within normal limits. ENDO: DM Low-dose insulin sliding scale every 4 hours TSH: 2.77 Access - Right IJ CVL placed 09/01 Prophylaxis - GI - Protonix - DVT - SCD. CCT 30 mins Desi Navarro MD Sep 03, 2016 09:03
--- NOTE | 2016-09-03 09:42 | MB ---
cc: [facility] TOTH DATE OF CONSULTATION 09/02/[address] Navarro REASON FOR CONSULTATION Pulmonary evaluation. HISTORY OF PRESENT ILLNESS Mr. Elliott is a 71-year-old male with history of COPD oxygen-dependent, hypertension and diabetes mellitus. He also has history of paroxysmal atrial fibrillation. He is on Eliquis. The patient was admitted with worsening of his shortness of breath. He was tried on C-PAP, did not do well and he is intubated. Currently he is sedated with fentanyl 250 and Diprivan. He is on Ranjeet-Synephrine to maintain his blood pressure. His blood gas shows pH 7.37, pCO2 38, pO2 207 on 40% FIO2. WBC count is 14.7, hemoglobin 9.5, hematocrit 29.8, MCV 80, platelet count 220. Sodium 130, potassium 4.5, chloride 94, CO2 25, BUN 45, creatinine 4.31. His chest x-ray shows endotracheal tube 8.5 cm above the antoinette. Chronic elevation of the diaphragm. Blood culture and urine culture negative. Influenza antigen is negative. PAST MEDICAL HISTORY 1. History of COPD. 2. Paroxysmal atrial fibrillation. 3. Testicular cancer. 4. Hepatitis C. 5. Diabetes mellitus. 6. Hypertension. FAMILY HISTORY Not able to obtain due to sedation. REVIEW OF SYSTEMS Cannot assess. MEDICATIONS Currently he is on - 1. Cefepime 2 grams q.48 hours. 2. Dulcolax suppository. 3. Lactulose 30 mL daily as needed. 4. Flagyl 500 mg q. 6 hours 5. He is on Ranjeet-Syn to maintain blood pressure. 6. Hydrocortisone 100 mg q.8 hours. 7. Vasopressin. 8. BuSpar 5 mg three times a day. 9. Thiamine 100 mg a day. 10. Zithromax 500 mg a day. ALLERGIES No known drug allergies. PHYSICAL EXAMINATION GENERAL: A well-built, well-nourished male, sedated on the ventilator. VITAL SIGNS: His blood pressure is 112/47, heart rate 102, respirations 16, temperature 98.9. HEENT EXAMINATION: Pupils are equal and reactive to light. Oral mucosa and nasal mucosa normal. NECK: Supple. JVP not raised. Chest: Equal bilaterally. No rhonchi. CV: S1 and S2 normal. ABDOMEN: Soft, nondistended. Bowel sounds are present. EXTREMITIES: No edema. IMPRESSION 1. Respiratory failure. He is on the ventilator. 2. Acute renal failure. 3. Atrial fibrillation. 4. Hypokalemia. 5. Hypotension. PLAN 1. The patient is being maintained on the ventilator. He is on Ranjeet-Syn to keep the MAP greater than 65. 2. Continue present antibiotic. 3. Hydrocortisone __ mg q. 8 hours. 4. Check his cultures. 5. We will wean from the ventilator as he tolerates. Further treatment will depend on the course in the hospital. Thank you, Dr. Navarro, for this consult. MD EDUARDO Dickson/MAGED /7:33 PM /9:23 AM GABRIEL
[2016-09-03] MEDS: RESP: ALBUTEROL 2.5 MG/3 ML NEB (PRN) NEB ×2 (10:36→15:46)
[2016-09-03] MEDS: GENTAMICIN SULFATE (DIALYSIS USE ONLY) 20 MG/2 ML VIAL IV PRN (11:30)
[2016-09-03] MEDS: HEPARIN SODIUM - IV 10,000 UNITS/10 ML VIAL PRN (11:30)
[2016-09-03] MEDS: ALBUMIN HUMAN 25% 25 GM/100 ML BAGP IV PRN (11:30)
--- NOTE | 2016-09-03 11:54 | HHI.NPPN ---
Subjective History of Present Illness 71-year-old with acute renal failure, atrial fibrillation Objective Data Data 09/02/16 09/03/16 19:00 07:00 Intake Total 1165 ml 3045 ml Output Total 300 ml 600 ml Balance 865 ml 2445 ml Intake IV Total 1165 ml 2569 ml Tube Feeding 416 ml Tube Irrigant 60 ml Output Urine Total 300 ml 600 ml # Bowel Movements 0 0 Vital Signs Date Time Temp Pulse Resp B/P Pulse Ox O2 Delivery O2 Flow Rate FiO2 09/03/16 10:37 100 35 09/03/16 10:00 125 09/03/16 08:24 99 35 09/03/16 08:00 97.8 118 24 94/61 99 100/61 09/03/16 08:00 35 09/03/16 08:00 118 09/03/16 08:00 118 94/61 100/61 09/03/16 06:00 106 09/03/16 04:11 100 35 09/03/16 04:00 108 09/03/16 04:00 35 09/03/16 04:00 108 96/65 92/57 09/03/16 04:00 98.0 108 24 96/65 98 92/57 09/03/16 02:00 106 09/03/16 01:49 100 35 09/03/16 00:00 98.7 107 24 101/62 100 97/61 09/03/16 00:00 35 09/03/16 00:00 107 101/62 97/61 09/03/16 00:00 107 09/02/16 22:00 107 09/02/16 20:00 107 104/58 85/52 09/02/16 20:00 35 09/02/16 20:00 107 09/02/16 20:00 98.6 107 24 104/58 93 85/52 09/02/16 19:38 100 35 09/02/16 18:00 99 09/02/16 16:00 35 09/02/16 16:00 98.9 103 26 112/47 98 09/02/16 16:00 102 09/02/16 16:00 103 112/47 09/02/16 14:34 100 35 09/02/16 14:00 99 09/02/16 12:00 98.4 92 24 90/59 100 102/61 09/02/16 12:00 35 09/02/16 12:00 92 90/59 102/61 09/02/16 12:00 95 -: 09/03/16 0400 09/03/16 0400 Physical Exam General Appearance: Well Developed Neck Neck Exam: Neck Supple Pulmonary Resp Exam: Decreased Bases Cardiology CV Exam: Arrhythmia Gastrointestinal/Abdomen GI Exam: Soft, Non-Tender Extremeties Extremities Exam: Trace Edema Assessment/Plan Problem List: (1) Acute renal failure Plan: seen during hemodialysis UF 2.5 L on 3 k bath Avoid nephrotoxins Follow BMP (2) Atrial flutter with rapid ventricular response Plan: Stable EF of 70% (3) Congestive heart failure Plan: Continue to monitor Alysha Marquis MD Sep 03, 2016 11:54
[2016-09-03] MEDS: THIAMINE INJ 100 MG in SODIUM CHLORIDE 0.9% INJ 100 ML IV SCH (12:24)
[2016-09-03] MEDS: SODIUM CHLORIDE 0.9% FLUSH 10 ML FLUSH IV FLUSH SCH ×2 (12:24→19:59)
[2016-09-03] MEDS: AZITHROMYCIN INJ 500 MG in SODIUM CHLOR 0.9% 250 ML INJ 250 ML IV SCH (12:26)
[2016-09-03] MEDS: PANTOPRAZOLE SODIUM 40 MG VIAL IV SCH (12:26)
[2016-09-03] MEDS: FOLIC ACID 1 MG TAB OG-TUBE SCH (12:27)
[2016-09-03] MEDS: MULTIVITAMINS/MINERALS THERAPEUTIC TAB OG-TUBE SCH (12:27)
[2016-09-03] MEDS: ASPIRIN 81 MG CHEW TAB CHEW SCH (12:27)
[2016-09-03] MEDS: VASOPRESSIN INJ 40 UNITS in DEXTROSE 5% IN WATER 100ML INJ 98 ML IV SCH ×2 (12:39)
[2016-09-03] MEDS: SODIUM CHLORIDE 0.9% FLUSH 10 ML FLUSH IVF SCH (12:44)
--- NOTE | 2016-09-03 14:52 | HHI.PR ---
Subjective Remarks 71 YOWM with VDRF,Ac Renal failure On Neosyn and vasopressin Sedated with Diprivan had HD No fever Objective Vital Signs Vital Signs Date Time Temp Pulse Resp B/P Pulse Ox O2 Delivery O2 Flow Rate FiO2 09/03/16 14:00 116 09/03/16 12:00 119 111/67 115/66 09/03/16 12:00 35 09/03/16 12:00 98.7 119 24 111/67 98 115/66 09/03/16 12:00 119 09/03/16 10:37 100 35 09/03/16 10:00 125 09/03/16 08:24 99 35 09/03/16 08:00 97.8 118 24 94/61 99 100/61 09/03/16 08:00 35 09/03/16 08:00 118 09/03/16 08:00 118 94/61 100/61 09/03/16 06:00 106 09/03/16 04:11 100 35 09/03/16 04:00 108 09/03/16 04:00 35 09/03/16 04:00 108 96/65 92/57 09/03/16 04:00 98.0 108 24 96/65 98 92/57 09/03/16 02:00 106 09/03/16 01:49 100 35 09/03/16 00:00 98.7 107 24 101/62 100 97/61 09/03/16 00:00 35 09/03/16 00:00 107 101/62 97/61 09/03/16 00:00 107 09/02/16 22:00 107 09/02/16 20:00 107 104/58 85/52 09/02/16 20:00 35 09/02/16 20:00 107 09/02/16 20:00 98.6 107 24 104/58 93 85/52 09/02/16 19:38 100 35 09/02/16 18:00 99 09/02/16 16:00 35 09/02/16 16:00 98.9 103 26 112/47 98 09/02/16 16:00 102 09/02/16 16:00 103 112/47 I/O 7/3/17 7/3/17 7/3/17 7/4/17 7/4/17 7/4/17 07:00 15:00 23:00 07:00 15:00 23:00 Intake Total 1191 ml 1165 ml 1630 ml 1415 ml 260 ml Output Total 425 ml 300 ml 250 ml 350 ml 2500 ml Balance 766 ml 865 ml 1380 ml 1065 ml -2240 ml Intake IV Total 1191 ml 1165 ml 1369 ml 1200 ml 260 ml Tube Feeding 201 ml 215 ml Tube Irrigant 60 ml Output Urine Total 425 ml 300 ml 250 ml 350 ml Hemodialysis 2500 ml # Bowel Movements 0 0 0 Result Diagram: 09/03/1639909/03/16399 Objective Remarks GENERAL: WBWN WM, on vent, sedated SKIN: Warm and dry. HEAD: Normocephalic. EYES: No scleral icterus. No injection or drainage. NECK: Supple, trachea midline. No JVD or lymphadenopathy. CARDIOVASCULAR: Regular rate and rhythm without murmurs, gallops, or rubs. RESPIRATORY: Breath sounds equal bilaterally. No accessory muscle use. GASTROINTESTINAL: Abdomen soft, non-tender, nondistended. MUSCULOSKELETAL: No cyanosis, or edema. BACK: Nontender without obvious deformity. No CVA tenderness. A/P Assessment and Plan VDRF Acute renal failure Hypotension AF PLAN: Cont vent support vasopressin and Neosyn to support BP HD Cont Abx Diprivan for sedation. wean vent as tolerated Amrit Garcia MD Sep 03, 2016 14:52
[2016-09-03 16:51] LABS: BLOOD GAS BASE EXCESS -3.8 mmol/L (-2-2); BLOOD GAS CARBOXYHEMOGLOBIN 1.1 % (0-4); BLOOD GAS HCO3 21 mmol/L (22-26); BLOOD GAS METHEMOGLOBIN 0.6 % (0-2); BLOOD GAS O2 HGB SATURATION 98 % (90-100); BLOOD GAS OXYGEN CONTENT 12.3 Vol % (12.0-20.0); BLOOD GAS PCO2 42 mmHg (38-42); BLOOD GAS PO2 173 mmHg (61-120); BLOOD GAS TOTAL HGB 8.6 G/DL (12.0-16.0); CRITICAL VALUE NO; FIO2 35 %; OXYGEN DEVICE VENTILATOR; TEMP CORR TO 98.6; VENT SETTINGS PRVC24/550/0.75/+8
[2016-09-03 16:52] LABS: DRAW SITE ART LINE; NUMBER OF ARTERIAL PUNCTURES 0; STAT NO; ULNAR PULSE PRESENT
[2016-09-04] VITALS (19 sets, daily range): BP systolic 90–112; BP diastolic 52–71; PULSE 103–120; RESP 12–36; TEMP 98.4–98.7; O2SAT 93–100
[2016-09-04] MEDS: metroNIDAZOLE 500 MG INJ 100 ML IV SCH ×4 (02:07→20:02)
[2016-09-04] MEDS: PROPOFOL 1000 MG/100 ML INJ 100 ML IV SCH (02:08)
[2016-09-04] MEDS: SODIUM CHLOR 0.9% 1000 ML INJ 1,000 ML IV SCH ×3 (02:08→20:25)
[2016-09-04] MEDS: RESP: ALBUTEROL 2.5 MG/IPRATROPIUM 0.5 MG NEB (SCH) NEB ×6 (03:30→23:13)
[2016-09-04] MEDS: INSULIN ASPART SUPPLEMENTAL SCALE SQ SCH ×7 (04:00→23:17)
[2016-09-04] MEDS: CHLORHEXIDINE GLUCONATE 2 % 1 PACK (2 CLOTHS) TOP SCH ×2 (04:00→19:31)
[2016-09-04 05:00] LABS: AUTOMATED NEUTROPHIL # 16.5 TH/MM3 (1.8-7.7); BASOPHIL % 0.1 % (0.0-2.0); HEMATOCRIT 30.7 % (39.0-51.0); LYMPH % 1.5 % (9.0-44.0); LYMPHOCYTE # 0.3 TH/MM3 (1.0-4.8); MEAN CELL VOLUME 88.9 FL (80.0-100.0); MEAN CORPUSCULAR HEMOGLOBIN 27.7 PG (27.0-34.0); MEAN CORPUSCULAR HGB CONC 31.2 % (32.0-36.0); MONO % 7.2 % (0.0-8.0); NEUT % 91.2 % (16.0-70.0); PLATELET COUNT 198 TH/MM3 (150-450); RED BLOOD COUNT 3.45 MIL/MM3 (4.50-5.90); WHITE BLOOD COUNT 18.1 TH/MM3 (4.0-11.0)
[2016-09-04 05:02] LABS: HEMO FLAGS AUTO DIFF
[2016-09-04] MEDS: HYDROCORTISONE SOD SUCCINATE 100 MG VIAL IV PUSH SCH ×3 (05:04→21:41)
[2016-09-04 05:23] LABS: ANION GAP 11 MEQ/L (5-15); AST (GOT) 180 U/L (15-37); BLOOD UREA NITROGEN 45 MG/DL (7-18); CHLORIDE 100 MEQ/L (98-107); GLOMERULAR FILTRATION RATE 19 ML/MIN (>89); POTASSIUM 4.1 MEQ/L (3.5-5.1); SODIUM (NA) 137 MEQ/L (136-145)
[2016-09-04 05:24] LABS: ALT (GPT) 101 U/L (12-78)
[2016-09-04 05:27] LABS: ALKALINE PHOSPHATASE 101 U/L (45-117); TOTAL BILIRUBIN ADULT 0.7 MG/DL (0.2-1.0)
[2016-09-04 06:15] LABS: BANDS 11 % (0-6); METAMYELOCYTES 1 % (0-1); MYELOCYTES 2 % (0-0); PLATELET ESTIMATE SMEAR NORMAL (NORMAL); PLATELET MORPHOLOGY NORMAL (NORMAL); POLYS (SEG NEUTROPHILS) 80 % (16-70); SCAN/DIFF FINAL DIFF MANUAL; WBC DIFF SAMPLE 100
[2016-09-04] MEDS: fentaNYL DRIP 250 ML IV SCH (06:57)
[2016-09-04] MEDS: AZITHROMYCIN INJ 500 MG in SODIUM CHLOR 0.9% 250 ML INJ 250 ML IV SCH (08:20)
[2016-09-04] MEDS: PANTOPRAZOLE SODIUM 40 MG VIAL IV SCH (08:21)
[2016-09-04] MEDS: THIAMINE INJ 100 MG in SODIUM CHLORIDE 0.9% INJ 100 ML IV SCH (08:21)
[2016-09-04] MEDS: CHLORHEXIDINE 0.12% (ORAL KIT) 15 ML CUP MT SCH ×2 (08:21→19:37)
[2016-09-04] MEDS: ARTIFICIAL TEARS OPTH SOLN 15 ML BTL EACH EYE SCH ×3 (08:22→17:43)
[2016-09-04] MEDS: SEVELAMER CARBONATE 800 MG TAB PO SCH ×3 (08:22→17:00)
[2016-09-04] MEDS: ASPIRIN 81 MG CHEW TAB CHEW SCH (08:22)
[2016-09-04] MEDS: busPIRone HCL 5 MG TAB PO SCH ×3 (08:23→17:42)
[2016-09-04] MEDS: FOLIC ACID 1 MG TAB OG-TUBE SCH (08:23)
[2016-09-04] MEDS: MULTIVITAMINS/MINERALS THERAPEUTIC TAB OG-TUBE SCH (08:23)
[2016-09-04] MEDS: NICOTINE 21 MG/24 HR PATCH T-DERMAL SCH (08:24)
[2016-09-04] MEDS: RESP: BUDESONIDE 0.5 MG/2 ML NEB NEB SCH ×2 (08:41→20:26)
[2016-09-04] MEDS: DOCUSATE SODIUM 50 MG/SENNA 8.6 MG TAB PO SCH ×2 (09:00→19:56)
[2016-09-04] MEDS: SODIUM CHLORIDE 0.9% FLUSH 10 ML FLUSH IVF SCH (09:00)
[2016-09-04] MEDS: SODIUM CHLORIDE 0.9% FLUSH 10 ML FLUSH IV FLUSH SCH ×2 (09:00→19:57)
[2016-09-04] MEDS: REMOVE OLD PATCH-NICOTINE T-DERMAL SCH (09:00)
[2016-09-04] MEDS: VASOPRESSIN INJ 40 UNITS in DEXTROSE 5% IN WATER 100ML INJ 98 ML IV SCH ×2 (12:39)
[2016-09-04] MEDS: DEXMEDETOMIDINE INJ 200 MCG in SODIUM CHLORIDE 0.9% INJ 50 ML IV SCH ×2 (12:59→16:25)
--- NOTE | 2016-09-04 13:06 | HHI.CCPN ---
Subjective Remarks/Hospital Course Unable to obtain history from patient as he was intubated in the ED prior to admission. I attempted to call Jesse Veliz who is a friend listed as his next of kin contact but there was no answer. History obtained from EMR and discussion with Dr. Villavicencio. 71-year-old male with past medical history of COPD on home O2, hypertension, diabetes, history of paroxysmal atrial flutter on chronic anticoagulation with Eliquis, testicular cancer, hepatitis C, alcohol abuse who presented to [facility] emergency department via [facility] with severe respiratory distress. He indicated to the ED physician that he been feeling poorly for 2 days and had had a subjective fever. Reportedly sats were 94% at the scene. He was given albuterol treatment. C Pap was attempted but he was unable to tolerate. He was given Lasix 100 mg IV because he carried a history of CHF. He was severely dyspneic on arrival and was intubated for impending respiratory failure. He was in A. fib RVR with rate in the 120s. He has been administered Cardizem 20 mg IV total. Heart rate remains in the 120s. He received Duoneb x2 and Solumedrol 125 mg IV. He is in acute renal failure and acute hypercapnic respiratory failure Subjective 09/01: Patient hypotensive overnight requiring placement of central line for vasopressor support. Essentially anuric since 2 AM. Arousable and does follow commands on the ventilator. Potassium remains elevated and he received Kayexalate and sodium bicarbonate pushes overnight along with D50/insulin. Recheck at 10 AM. No peak T waves on monitor. 09/02 Patient is sedated with Diprivan, Fentanyl and intubated. Afebrile. On Neosyn 110mics, Vasopressin and Cardizem 5mg/hr. HD initiated yesterday with removal 1.5L. 09/03 Patient remains intubated and sedated with Diprivan and Fentanyl. Off Vasopressin, Neosyn down to 60 mics from 110. Renal function is improving with Cr: 3.99 from 4.39 09/04: Patient intubated, sedated, gets very agitated on sedation lowering. Remains on Ranjeet-Synephrine at 60 mcg/m. I'll start Precedex to facilitate ventilator weaning. WBC count worsening Objective Vital Signs Date Time Temp Pulse Resp B/P Pulse Ox O2 Delivery O2 Flow Rate FiO2 09/04/16 11:58 93 35 09/04/16 10:00 114 09/04/16 08:00 105/65 99/55 09/04/16 08:00 98.6 24 09/01/16 01:17 Ventilator 08/31/16 18:10 15 Intake and Output 09/03/16 09/03/16 09/04/16 08:00 16:00 00:00 Intake Total 1415 ml 1981 ml 1214 ml Output Total 350 ml 2560 ml 50 ml Balance 1065 ml -579 ml 1164 ml Result Diagram: 09/04/16 0415 09/04/16 0415 Other Results Laboratory Tests Test 09/03/16 16:40 Blood Gas Puncture Site ART LINE Blood Gas Patient Temperature 98.6 Blood Gas HCO3 21 mmol/L (22-26) Blood Gas Base Excess -3.8 mmol/L (-2-2) Blood Gas Oxygen Saturation 98 % (90-100) Arterial Blood pH 7.33 (7.380-7.420) Arterial Blood Partial 42 mmHg (38-42) Pressure CO2 Arterial Blood Partial 173 mmHg Pressure O2 (61-120) Arterial Blood Oxygen Content 12.3 Vol % (12.0-20.0) Arterial Blood 1.1 % (0-4) Carboxyhemoglobin Arterial Blood Methemoglobin 0.6 % (0-2) Blood Gas Hemoglobin 8.6 G/DL (12.0-16.0) Oxygen Delivery Device VENTILATOR Blood Gas Ventilator Setting PRVC24/550/0.75/+8 Blood Gas Inspired Oxygen 35 % Imaging Last Impressions Chest X-Ray 09/02/16 0600 Signed Impressions: Service Date/Time: Friday, September 02, 2016 05:08 - CONCLUSION: 1. Endotracheal tube 8.5 cm above antoinette. This can be advanced 2-3 cm. 2. Chronic elevation right hemidiaphragm. Cale Zepeda MD Liver Ultrasound 09/02/16 0000 Signed Impressions: Service Date/Time: Friday, September 02, 2016 11:53 - CONCLUSION: Mild ascites. Nonvisualization of flow in the portal vein. Sivakumar Brush MD FACR Lower Extremity Ultrasound 09/01/16 0000 Signed Impressions: Service Date/Time: Thursday, September 01, 2016 16:09 - CONCLUSION: Nonocclusive thrombus in the left common femoral and greater saphenous veins. No DVT is seen on the right. Arash Chávez MD Head CT 09/01/16 Signed Impressions: Service Date/Time: Thursday, September 01, 2016 20:31 - CONCLUSION: No acute disease. Arash Chávez MD Chest CT 09/01/16 Signed Impressions: Service Date/Time: Thursday, September 01, 2016 20:35 - CONCLUSION: 1. Suspicious appearing mass in the left suprahilar region concerning for a primary lung malignancy. In addition there is very prominent adenopathy seen throughout the mediastinum and left hilar region all concerning for a neoplastic disease. 2. There are ill-defined masses seen around the kidneys bilaterally. At the time a read the CT of the abdomen I was unaware of the CT of the chest findings. The abnormality in the chest makes metastases responsible for the masses in the pararenal spaces more likely. Arash Chávez MD Abdomen/Pelvis CT 09/01/16 Signed Impressions: Service Date/Time: Thursday, September 01, 2016 20:35 - CONCLUSION: 1. Multiple retroperitoneal mass is seen around the kidneys bilaterally being more numerous and larger on the right. This appearance is quite unusual. Neoplastic processes from metastases may have this appearance but typically metastases would be seen elsewhere. Inflammatory change could have this appearance but the underlying kidneys appear grossly normal. These are of uncertain etiology. They are amenable to biopsy. 2. Focal area of thickening at the mid small bowel. An area of enteritis could have this appearance. An area of small bowel hemorrhage or infiltrating neoplasm cannot be excluded. 3. Mild ascites. 4. Avascular necrosis of the femoral head. Arash Chávez MD Renal Ultrasound 08/31/16 Signed Impressions: Service Date/Time: Wednesday, August 31, 2016 23:47 - CONCLUSION: Diffuse cortical thinning of both kidneys. Scattered ascites throughout the abdomen.. Olvin Guzman MD Objective Remarks GENERAL: 71-year-old male resting in bed sedated on the ventilator SKIN: Warm, dry, with no rash HEAD: Atraumatic. Normocephalic. EYES: Pupils equally round and reactive. No scleral icterus. No injection or drainage. ENT: No nasal bleeding or discharge. Mucous membranes pink and moist. Oropharynx currently orotracheally intubated. OG tube in place NECK: Trachea midline. No JVD appreciated. Obese. Right IJ CVL clean dry and intact CARDIOVASCULAR: Heart sounds due to body habitus. Active, RR. S1, S2. No S4. No murmurs, clicks, gallops or rubs appreciated. RESPIRATORY: Very distant breath sounds with poor air movement bilaterally. Positive expiratory wheeze GASTROINTESTINAL: Abdomen protuberant, soft, with some mild distension, no tenderness, no rebound or guarding. Bowel sounds present MUSCULOSKELETAL: Extremities without clubbing, cyanosis. There is 1 + pitting pretibial edema. Bilateral anterior tibial scarring/hold NEUROLOGICAL: Intubated, sedated. On sedation hold becomes agitated do not follow commands Urinary Catheter: Yes Assessment to: Continue Date of Insertion: Sep 01, 2016 Line: Central Venous Catheter Side: Right Location: Internal, Jugular A/P Assessment and Plan NEURO/PSYCH: Anxiety EtOH abuse/dependence - 6-8 drinks of hard liquor daily History of migraine headache On Diprivan and Fentanyl infusion for sedation. Daily sedation vacation. Start Precedex to facilitate ventilator weaning Goal of RASS -2. Continue BuSpar 5 tid for anxiety disorder Monitor for signs and symptoms of alcohol withdrawal/protocol initiated Thiamine 100 mg daily/folic acid 1 mg daily/multivitamin 1 tablet daily for EtOH abuse RESP: Acute hypercapnic respiratory failure Acute COPD exacerbation MAGO - not on CPAP Tobacco abuse/ongoing one half pack per day PRVC 24/tidal volume around 550/0.75/5/35-reduce rate to 16 to avoid airtrapping , increase TV to 650 Ventilator bundle. DuoNeb every 4 hours. Albuterol every 2 hours as needed for wheezing. On Solucortef 100mg IV Q8. Pulmicort 2/0.5 one inhalation twice a day 09/01 CT chest: Suspicious appearing mass in the left suprahilar region concerning for a primary lung malignancy. Prominent adenopathy seen throughout the mediastinum and left hilar region all concerning for a neoplastic disease. There are ill-defined masses seen around the kidneys bilaterally Pulm Dr. Garcia CV: Hypotension/Shock History of Hypertension Paroxysmal atrial fibrillation with RVR Chronic diastolic heart failure with preserved EF Wean off Neosyn monitor HR and BP keep MAP > 65mmHg Amiodarone on hold for elevated LFT Echo showed EF 65%-70%, technically difficult study. Holding lisinopril 10 mg by mouth daily in light of acute kidney injury GI: History of hepatitis C unknown treatment status GERD Elevated LFT's Continue tube feeds- Nepro @ 40ml/hr US liver: Mild ascites. Nonvisualization of flow in the portal vein. Protonix for GI prophylaxis Lizz-Colace for bowel regimen Monitor LFT's FEN/RENAL: Acute kidney injury - baseline creatinine around 0.9 07/17 Renal ultrasound revealed diffuse cortical thickening without hydronephrosis. Monitor renal function, I/O's, avoid nephrotoxins. s/p HD 09/01 Renal function is improving. Renal- Dr. Martinez. 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 Follow trends Coags within normal limits. ENDO: DM Low-dose insulin sliding scale every 4 hours TSH: 2.77 Access - Right IJ CVL placed 09/01 Prophylaxis - GI - Protonix - DVT - SCD. CCT 30 mins Dixon Antoine MD Sep 04, 2016 13:06 Dixon Antoine MD Sep 04, 2016 13:06
--- NOTE | 2016-09-04 13:48 | HHI.NPPN ---
Subjective History of Present Illness 71-year-old with acute renal failure, atrial fibrillation Objective Data Data 09/03/16 09/04/16 19:00 07:00 Intake Total 1981 ml 2455 ml Output Total 2560 ml 150 ml Balance -579 ml 2305 ml Intake IV Total 1537 ml 1940 ml Tube Feeding 324 ml 455 ml Other 120 ml 60 ml Output Urine Total 60 ml 150 ml Hemodialysis 2500 ml Vital Signs Date Time Temp Pulse Resp B/P Pulse Ox O2 Delivery O2 Flow Rate FiO2 09/04/16 12:00 35 09/04/16 12:00 98.4 118 24 98/61 93 91/52 09/04/16 12:00 118 98/61 91/52 09/04/16 12:00 114 09/04/16 11:58 93 35 09/04/16 10:00 114 09/04/16 08:43 97 35 09/04/16 08:00 35 09/04/16 08:00 117 105/65 99/55 09/04/16 08:00 98.6 117 24 105/65 98 99/55 09/04/16 08:00 116 09/04/16 06:00 116 09/04/16 04:18 98 35 09/04/16 04:00 116 09/04/16 04:00 35 09/04/16 04:00 98.7 116 12 104/65 96 93/53 09/04/16 04:00 116 104/65 93/53 09/04/16 02:00 117 09/04/16 01:56 100 35 09/04/16 00:00 120 112/71 103/59 09/04/16 00:00 120 09/04/16 00:00 98.5 120 24 112/71 100 103/59 09/04/16 00:00 35 09/03/16 22:07 100 35 09/03/16 22:00 116 09/03/16 20:00 98.8 115 26 102/62 98 95/55 09/03/16 20:00 35 09/03/16 20:00 115 102/62 95/55 09/03/16 20:00 115 09/03/16 19:38 100 35 09/03/16 18:00 112 09/03/16 17:00 35 09/03/16 16:00 106 103/67 104/61 09/03/16 16:00 35 09/03/16 16:00 98.3 106 25 103/67 99 104/61 09/03/16 16:00 106 09/03/16 15:46 96 35 09/03/16 14:00 116 -: 09/04/16 0415 09/04/16 0415 Physical Exam General Appearance: Well Developed Neck Neck Exam: Neck Supple Pulmonary Resp Exam: Decreased Bases Cardiology CV Exam: Arrhythmia Gastrointestinal/Abdomen GI Exam: Soft, Non-Tender Extremeties Extremities Exam: Trace Edema Assessment/Plan Problem List: (1) Acute renal failure Plan: Creatinine is slowly declining urine output is fair continue to monitor BMP HD done yesterday 2.5 on vasopressor Avoid nephrotoxins Follow BMP (2) Atrial flutter with rapid ventricular response Plan: Stable EF of 70% (3) Congestive heart failure Plan: Continue to monitor Alysha Marquis MD Sep 04, 2016 13:48
[2016-09-04] MEDS: PHENYLEPHRINE INJ 160 MG in DEXTROSE 5% IN WATE 500 ML INJ 484 ML IV SCH ×2 (14:49)
[2016-09-04 18:04] LABS: BLOOD GAS BASE EXCESS -4.6 mmol/L (-2-2); BLOOD GAS HCO3 24 mmol/L (22-26); BLOOD GAS METHEMOGLOBIN 1.2 % (0-2); BLOOD GAS O2 HGB SATURATION 89 % (90-100); BLOOD GAS OXYGEN CONTENT 11.9 Vol % (12.0-20.0); BLOOD GAS PCO2 79 mmHg (38-42); BLOOD GAS PO2 84 mmHg (61-120); BLOOD GAS TOTAL HGB 9.4 G/DL (12.0-16.0); CRITICAL VALUE YES; OXYGEN DEVICE VENTILATOR; TEMP CORR TO 98.6
[2016-09-04 18:05] LABS: DRAW SITE ART LINE; FIO2 45 %; STAT YES; VENT SETTINGS CPAP+5/PS+8
--- NOTE | 2016-09-04 18:14 | HHI.PR ---
Subjective Remarks 71 YOWM with VDRF,Ac Renal failure On Neosyn had HD No fever Off sedation On CPAP, started retaing C02 back on Rate 18, TV 650 Objective Vital Signs Vital Signs Date Time Temp Pulse Resp B/P Pulse Ox O2 Delivery O2 Flow Rate FiO2 09/04/16 16:00 45 09/04/16 16:00 98.4 114 36 96/63 96 90/52 09/04/16 16:00 110 09/04/16 16:00 114 96/63 90/52 09/04/16 15:45 99 35 09/04/16 14:00 114 09/04/16 12:00 35 09/04/16 12:00 98.4 118 24 98/61 93 91/52 09/04/16 12:00 118 98/61 91/52 09/04/16 12:00 114 09/04/16 11:58 93 35 09/04/16 10:00 114 09/04/16 08:43 97 35 09/04/16 08:00 35 09/04/16 08:00 117 105/65 99/55 09/04/16 08:00 98.6 117 24 105/65 98 99/55 09/04/16 08:00 116 09/04/16 06:00 116 09/04/16 04:18 98 35 09/04/16 04:00 116 09/04/16 04:00 35 09/04/16 04:00 98.7 116 12 104/65 96 93/53 09/04/16 04:00 116 104/65 93/53 09/04/16 02:00 117 09/04/16 01:56 100 35 09/04/16 00:00 120 112/71 103/59 09/04/16 00:00 120 09/04/16 00:00 98.5 120 24 112/71 100 103/59 09/04/16 00:00 35 09/03/16 22:07 100 35 09/03/16 22:00 116 09/03/16 20:00 98.8 115 26 102/62 98 95/55 09/03/16 20:00 35 09/03/16 20:00 115 102/62 95/55 09/03/16 20:00 115 09/03/16 19:38 100 35 I/O 7/409/03/16 09/03/16 09/04/16 09/04/16 09/04/16 07:00 15:00 23:00 07:00 15:00 23:00 Intake Total 1415 ml 1981 ml 1214 ml 1241 ml 1905 ml 350 ml Output Total 350 ml 2560 ml 50 ml 100 ml 100 ml Balance 1065 ml -579 ml 1164 ml 1141 ml 1805 ml 350 ml Intake IV Total 1200 ml 1537 ml 930 ml 1010 ml 1585 ml 350 ml Tube Feeding 215 ml 324 ml 224 ml 231 ml 320 ml Other 120 ml 60 ml Output Urine Total 350 ml 60 ml 50 ml 100 ml 100 ml Hemodialysis 2500 ml Result Diagram: 09/04/1641409/04/16414 Objective Remarks GENERAL: WBWN WM, on vent, sedated SKIN: Warm and dry. HEAD: Normocephalic. EYES: No scleral icterus. No injection or drainage. NECK: Supple, trachea midline. No JVD or lymphadenopathy. CARDIOVASCULAR: Regular rate and rhythm without murmurs, gallops, or rubs. RESPIRATORY: Breath sounds equal bilaterally. No accessory muscle use. GASTROINTESTINAL: Abdomen soft, non-tender, nondistended. MUSCULOSKELETAL: No cyanosis, or edema. BACK: Nontender without obvious deformity. No CVA tenderness. A/P Assessment and Plan VDRF Acute renal failure Hypotension AF PLAN: Cont vent support Neosyn to support BP HD Cont Abx wean vent as tolerated Amrit Garcia MD Sep 04, 2016 18:14
[2016-09-04 18:53] LABS: BLOOD GAS BASE EXCESS -4.5 mmol/L (-2-2); BLOOD GAS CARBOXYHEMOGLOBIN 1.2 % (0-4); BLOOD GAS HCO3 22 mmol/L (22-26); BLOOD GAS METHEMOGLOBIN 1.1 % (0-2); BLOOD GAS O2 HGB SATURATION 96 % (90-100); BLOOD GAS PCO2 55 mmHg (38-42); BLOOD GAS PO2 132 mmHg (61-120); BLOOD GAS TOTAL HGB 9.4 G/DL (12.0-16.0); CRITICAL VALUE YES; OXYGEN DEVICE VENTILATOR; TEMP CORR TO 98.6
[2016-09-04 18:54] LABS: DRAW SITE ART LINE; FIO2 45 %; STAT NO
[2016-09-04] MEDS: DEXMEDETOMIDINE INJ 400 MCG in SODIUM CHLORIDE 0.9% INJ 96 ML IV SCH (20:02)
[2016-09-05] VITALS (17 sets, daily range): BP systolic 79–170; BP diastolic 51–100; PULSE 97–125; RESP 14–21; TEMP 95.1–99.7; O2SAT 93–100
[2016-09-05] MEDS: RESP: ALBUTEROL 2.5 MG/3 ML NEB (PRN) NEB ×3 (02:45→19:54)
[2016-09-05] MEDS: DEXMEDETOMIDINE INJ 400 MCG in SODIUM CHLORIDE 0.9% INJ 96 ML IV SCH ×5 (02:51→12:32)
[2016-09-05] MEDS: INSULIN ASPART SUPPLEMENTAL SCALE SQ SCH ×6 (04:00→23:42)
[2016-09-05] MEDS: metroNIDAZOLE 500 MG INJ 100 ML IV SCH ×4 (04:02→20:18)
[2016-09-05 05:54] LABS: BLOOD GAS BASE EXCESS -3.7 mmol/L (-2-2); BLOOD GAS CARBOXYHEMOGLOBIN 1.3 % (0-4); BLOOD GAS HCO3 21 mmol/L (22-26); BLOOD GAS O2 HGB SATURATION 97 % (90-100); BLOOD GAS OXYGEN CONTENT 14.3 Vol % (12.0-20.0); BLOOD GAS PCO2 37 mmHg (38-42); BLOOD GAS PO2 154 mmHg (61-120); BLOOD GAS TOTAL HGB 10.2 G/DL (12.0-16.0); CRITICAL VALUE NO; OXYGEN DEVICE VENTILATOR; TEMP CORR TO 98.6
[2016-09-05 05:55] LABS: VENT SETTINGS PRVC/AC
[2016-09-05 05:56] LABS: DRAW SITE ART LINE; FIO2 40 %; STAT NO
[2016-09-05] MEDS: HYDROCORTISONE SOD SUCCINATE 100 MG VIAL IV PUSH SCH ×3 (05:59→20:19)
[2016-09-05] MEDS: SEVELAMER CARBONATE 800 MG TAB PO SCH ×3 (08:00→16:52)
[2016-09-05] MEDS: CHLORHEXIDINE 0.12% (ORAL KIT) 15 ML CUP MT SCH ×2 (08:55→20:18)
[2016-09-05] MEDS: ARTIFICIAL TEARS OPTH SOLN 15 ML BTL EACH EYE SCH ×3 (08:55→17:44)
[2016-09-05] MEDS: MULTIVITAMINS/MINERALS THERAPEUTIC TAB OG-TUBE SCH (08:56)
[2016-09-05] MEDS: busPIRone HCL 5 MG TAB PO SCH ×3 (08:56→17:44)
[2016-09-05] MEDS: ASPIRIN 81 MG CHEW TAB CHEW SCH (08:56)
[2016-09-05] MEDS: PANTOPRAZOLE SODIUM 40 MG VIAL IV SCH (08:56)
[2016-09-05] MEDS: DOCUSATE SODIUM 50 MG/SENNA 8.6 MG TAB PO SCH ×2 (08:56→20:19)
[2016-09-05] MEDS: REMOVE OLD PATCH-NICOTINE T-DERMAL SCH (09:00)
[2016-09-05] MEDS: NICOTINE 21 MG/24 HR PATCH T-DERMAL SCH (09:04)
[2016-09-05] MEDS: SODIUM CHLORIDE 0.9% FLUSH 10 ML FLUSH IVF SCH (09:05)
[2016-09-05] MEDS: FOLIC ACID 1 MG TAB OG-TUBE SCH (09:05)
[2016-09-05] MEDS: SODIUM CHLORIDE 0.9% FLUSH 10 ML FLUSH IV FLUSH SCH ×2 (09:05→20:19)
[2016-09-05] MEDS: AZITHROMYCIN INJ 500 MG in SODIUM CHLOR 0.9% 250 ML INJ 250 ML IV SCH (09:06)
[2016-09-05 09:51] LABS: HCV RNA PCR IU/ML LESS THAN 15 IU/mL (()); HCV RNA PCR LOGIU/ML LESS THAN 1.18 (())
[2016-09-05] MEDS: RESP: BUDESONIDE 0.5 MG/2 ML NEB NEB SCH ×2 (09:54→19:54)
[2016-09-05] MEDS: HEPARIN SODIUM - IV 10,000 UNITS/10 ML VIAL PRN (10:12)
[2016-09-05] MEDS: GENTAMICIN SULFATE (DIALYSIS USE ONLY) 20 MG/2 ML VIAL IV PRN (10:12)
[2016-09-05] MEDS: ALBUMIN HUMAN 25% 25 GM/100 ML BAGP IV PRN (10:12)
[2016-09-05] MEDS: SODIUM CHLOR 0.9% 1000 ML INJ 1,000 ML IV PRN (10:13)
[2016-09-05] MEDS: MANNITOL 12.5 GM/50 ML VIAL IV PRN (10:13)
--- NOTE | 2016-09-05 10:33 | HHI.NPPN ---
Subjective History of Present Illness 71-year-old with acute renal failure, atrial fibrillation Objective Data Data 09/04/16 09/05/16 19:00 07:00 Intake Total 2255 ml 1754 ml Output Total 100 ml 325 ml Balance 2155 ml 1429 ml Intake IV Total 1935 ml 1589 ml Tube Feeding 320 ml 165 ml Output Urine Total 100 ml 325 ml Vital Signs Date Time Temp Pulse Resp B/P Pulse Ox O2 Delivery O2 Flow Rate FiO2 09/05/16 09:41 100 40 09/05/16 06:00 114 09/05/16 04:09 100 40 09/05/16 04:00 111 09/05/16 04:00 95.1 114 20 137/76 96 09/05/16 04:00 40 09/05/16 04:00 137/76 09/05/16 01:12 100 40 09/05/16 00:00 09/05/16 00:00 40 09/05/16 00:00 97.6 97 14 123/77 93 132/74 09/04/16 22:28 100 40 09/04/16 22:00 107 09/04/16 20:00 98.7 103 27 107/69 99 112/65 09/04/16 20:00 45 09/04/16 20:00 107 09/04/16 20:00 114 96/63 90/52 09/04/16 19:46 99 40 09/04/16 18:00 107 09/04/16 16:00 45 09/04/16 16:00 98.4 114 36 96/63 96 90/52 09/04/16 16:00 110 09/04/16 16:00 114 96/63 90/52 09/04/16 15:45 99 35 09/04/16 14:00 114 09/04/16 12:00 35 09/04/16 12:00 98.4 118 24 98/61 93 91/52 09/04/16 12:00 118 98/61 91/52 09/04/16 12:00 114 09/04/16 11:58 93 35 -: 09/04/16 0415 09/04/16 0415 Physical Exam General Appearance: Well Developed Neck Neck Exam: Neck Supple Pulmonary Resp Exam: Decreased Bases Cardiology CV Exam: Arrhythmia Gastrointestinal/Abdomen GI Exam: Soft, Non-Tender Extremeties Extremities Exam: Trace Edema Assessment/Plan Problem List: (1) Acute renal failure Plan: Creatinine is slowly declining urine output is fair continue to monitor BMP HD seen during treatment UF 4 L 2 K bath Avoid nephrotoxins Follow BMP (2) Atrial flutter with rapid ventricular response Plan: Stable EF of 70% (3) Congestive heart failure Plan: Continue to monitor Alysha Marquis MD Sep 05, 2016 10:33
--- NOTE | 2016-09-05 12:15 | HHI.CCPN ---
Subjective Remarks/Hospital Course Unable to obtain history from patient as he was intubated in the ED prior to admission. I attempted to call Jesse Veliz who is a friend listed as his next of kin contact but there was no answer. History obtained from EMR and discussion with Dr. Villavicencio. 71-year-old male with past medical history of COPD on home O2, hypertension, diabetes, history of paroxysmal atrial flutter on chronic anticoagulation with Eliquis, testicular cancer, hepatitis C, alcohol abuse who presented to [facility] emergency department via [facility] with severe respiratory distress. He indicated to the ED physician that he been feeling poorly for 2 days and had had a subjective fever. Reportedly sats were 94% at the scene. He was given albuterol treatment. C Pap was attempted but he was unable to tolerate. He was given Lasix 100 mg IV because he carried a history of CHF. He was severely dyspneic on arrival and was intubated for impending respiratory failure. He was in A. fib RVR with rate in the 120s. He has been administered Cardizem 20 mg IV total. Heart rate remains in the 120s. He received Duoneb x2 and Solumedrol 125 mg IV. He is in acute renal failure and acute hypercapnic respiratory failure Subjective 09/01: Patient hypotensive overnight requiring placement of central line for vasopressor support. Essentially anuric since 2 AM. Arousable and does follow commands on the ventilator. Potassium remains elevated and he received Kayexalate and sodium bicarbonate pushes overnight along with D50/insulin. Recheck at 10 AM. No peak T waves on monitor. 09/02 Patient is sedated with Diprivan, Fentanyl and intubated. Afebrile. On Neosyn 110mics, Vasopressin and Cardizem 5mg/hr. HD initiated yesterday with removal 1.5L. 09/03 Patient remains intubated and sedated with Diprivan and Fentanyl. Off Vasopressin, Neosyn down to 60 mics from 110. Renal function is improving with Cr: 3.99 from 4.39 09/04: Patient intubated, sedated, gets very agitated on sedation lowering. Remains on Ranjeet-Synephrine at 60 mcg/m. I'll start Precedex to facilitate ventilator weaning. WBC count worsening 09/05: Continues to remain severely encephalopathy. On sedation on lightening shows 100 and agonal breathing on the ventilator. Profoundly acidemic with CO2 retention on CPAP trial yesterday. No improvement in mental status. Requiring Ranjeet-Synephrine on and off Objective Vital Signs Date Time Temp Pulse Resp B/P Pulse Ox O2 Delivery O2 Flow Rate FiO2 09/05/16 11:45 98 40 09/05/16 06:00 114 09/05/16 04:00 95.1 20 137/76 Intake and Output 09/04/16 09/04/16 09/05/16 08:00 16:00 00:00 Intake Total 1241 ml 1905 ml 725 ml Output Total 100 ml 100 ml 125 ml Balance 1141 ml 1805 ml 600 ml Result Diagram: 09/04/16 0415 09/04/16 0415 Other Results Laboratory Tests Test 09/04/16 09/04/16 09/05/16 17:50 18:40 05:39 Blood Gas Puncture Site ART LINE ART LINE ART LINE Blood Gas Patient Temperature 98.6 98.6 98.6 Blood Gas HCO3 24 mmol/L 22 mmol/L 21 mmol/L (22-26) (22-26) (22-26) Blood Gas Base Excess -4.6 mmol/L -4.5 mmol/L -3.7 mmol/L (-2-2) (-2-2) (-2-2) Blood Gas Oxygen Saturation 89 % (90-100) 96 % (90-100) 97 % (90-100) Arterial Blood pH 7.11 7.23 7.37 (7.380-7.420) (7.380-7.420) (7.380-7.420) Arterial Blood Partial 79 mmHg (38-42) 55 mmHg (38-42) 37 mmHg (38-42) Pressure CO2 Arterial Blood Partial 84 mmHg 132 mmHg 154 mmHg Pressure O2 (61-120) (61-120) (61-120) Arterial Blood Oxygen Content 11.9 Vol % 13.0 Vol % 14.3 Vol % (12.0-20.0) (12.0-20.0) (12.0-20.0) Arterial Blood 1.0 % (0-4) 1.2 % (0-4) 1.3 % (0-4) Carboxyhemoglobin Arterial Blood Methemoglobin 1.2 % (0-2) 1.1 % (0-2) 1.0 % (0-2) Blood Gas Hemoglobin 9.4 G/DL 9.4 G/DL 10.2 G/DL (12.0-16.0) (12.0-16.0) (12.0-16.0) Oxygen Delivery Device VENTILATOR VENTILATOR VENTILATOR Blood Gas Ventilator Setting CPAP+5/PS+8 PRVC/AC Blood Gas Inspired Oxygen 45 % 45 % 40 % Imaging Last Impressions Chest X-Ray 09/02/16 0600 Signed Impressions: Service Date/Time: Friday, September 02, 2016 05:08 - CONCLUSION: 1. Endotracheal tube 8.5 cm above antoinette. This can be advanced 2-3 cm. 2. Chronic elevation right hemidiaphragm. Cale Zepeda MD Liver Ultrasound 09/02/16 0000 Signed Impressions: Service Date/Time: Friday, September 02, 2016 11:53 - CONCLUSION: Mild ascites. Nonvisualization of flow in the portal vein. Sivakumar Brush MD FACR Lower Extremity Ultrasound 09/01/16 0000 Signed Impressions: Service Date/Time: Thursday, September 01, 2016 16:09 - CONCLUSION: Nonocclusive thrombus in the left common femoral and greater saphenous veins. No DVT is seen on the right. Arash Chávez MD Head CT 09/01/16 0000 Signed Impressions: Service Date/Time: Thursday, September 01, 2016 20:31 - CONCLUSION: No acute disease. Arash Chávez MD Chest CT 09/01/16 0000 Signed Impressions: Service Date/Time: Thursday, September 01, 2016 20:35 - CONCLUSION: 1. Suspicious appearing mass in the left suprahilar region concerning for a primary lung malignancy. In addition there is very prominent adenopathy seen throughout the mediastinum and left hilar region all concerning for a neoplastic disease. 2. There are ill-defined masses seen around the kidneys bilaterally. At the time a read the CT of the abdomen I was unaware of the CT of the chest findings. The abnormality in the chest makes metastases responsible for the masses in the pararenal spaces more likely. Arash Chávez MD Abdomen/Pelvis CT 09/01/16 0000 Signed Impressions: Service Date/Time: Thursday, September 01, 2016 20:35 - CONCLUSION: 1. Multiple retroperitoneal mass is seen around the kidneys bilaterally being more numerous and larger on the right. This appearance is quite unusual. Neoplastic processes from metastases may have this appearance but typically metastases would be seen elsewhere. Inflammatory change could have this appearance but the underlying kidneys appear grossly normal. These are of uncertain etiology. They are amenable to biopsy. 2. Focal area of thickening at the mid small bowel. An area of enteritis could have this appearance. An area of small bowel hemorrhage or infiltrating neoplasm cannot be excluded. 3. Mild ascites. 4. Avascular necrosis of the femoral head. Arash Chávez MD Renal Ultrasound 08/31/16 0000 Signed Impressions: Service Date/Time: Friday, August 31, 2016 23:47 - CONCLUSION: Diffuse cortical thinning of both kidneys. Scattered ascites throughout the abdomen.. Olvin Guzman MD Objective Remarks GENERAL: 71-year-old male resting in bed sedated on the ventilator SKIN: Warm, dry, with no rash HEAD: Atraumatic. Normocephalic. EYES: Pupils equally round and reactive. No scleral icterus. No injection or drainage. ENT: No nasal bleeding or discharge. Mucous membranes pink and moist. Oropharynx currently orotracheally intubated. OG tube in place NECK: Trachea midline. No JVD appreciated. Obese. Right IJ CVL clean dry and intact CARDIOVASCULAR: Heart sounds due to body habitus. Active, RR. S1, S2. No S4. No murmurs, clicks, gallops or rubs appreciated. RESPIRATORY: Very distant breath sounds with poor air movement bilaterally. Positive expiratory wheeze GASTROINTESTINAL: Abdomen protuberant, soft, with some mild distension, no tenderness, no rebound or guarding. Bowel sounds present MUSCULOSKELETAL: Extremities without clubbing, cyanosis. There is 1 + pitting pretibial edema. Bilateral anterior tibial scarring/hold NEUROLOGICAL: Intubated, sedated. On sedation hold shows agonal breathing. Spontaneously opens eyes, do not follow commands Date of Insertion: Sep 01, 2016 Line: Central Venous Catheter Side: Right Location: Internal, Jugular A/P Assessment and Plan NEURO/PSYCH: Anxiety EtOH abuse/dependence - 6-8 drinks of hard liquor daily History of migraine headache On Diprivan and Fentanyl infusion for sedation. Daily sedation vacation is not tolerated due to severe ventilator asynchrony Goal of RASS -2. Continue BuSpar 5 tid for anxiety disorder Monitor for signs and symptoms of alcohol withdrawal/protocol initiated Thiamine 100 mg daily/folic acid 1 mg daily/multivitamin 1 tablet daily for EtOH abuse Check Ammonia level RESP: Acute hypercapnic respiratory failure Acute COPD exacerbation MAGO - not on CPAP Tobacco abuse/ongoing one half pack per day PRVC 16/tidal volume around 550/0.75/5/35-reduce rate to 16 to avoid airtrapping , increase TV to 650. Permit hypercapnea, tolerate pH 7.2 Ventilator bundle. DuoNeb every 4 hours. Albuterol every 2 hours as needed for wheezing. On Solucortef 100mg IV Q8. Pulmicort one inhalation twice a day 09/01 CT chest: Suspicious appearing mass in the left suprahilar region concerning for a primary lung malignancy. Prominent adenopathy seen throughout the mediastinum and left hilar region all concerning for a neoplastic disease. There are ill-defined masses seen around the kidneys bilaterally Pulm Dr. Garcia. Unless there is significant clinical improvement I do not see any point in pursuing the suprahilar mass CV: Hypotension/Shock History of Hypertension Paroxysmal atrial fibrillation with RVR Chronic diastolic heart failure with preserved EF Intermittent Ranjeet-Synephrine requirement Amiodarone on hold for elevated LFT Echo showed EF 65%-70%, technically difficult study. Holding lisinopril 10 mg by mouth daily in light of acute kidney injury GI: History of hepatitis C unknown treatment status GERD Elevated LFT's Continue tube feeds- Nepro @ 40ml/hr US liver: Mild ascites. Nonvisualization of flow in the portal vein. Protonix for GI prophylaxis Lizz-Colace for bowel regimen Monitor LFT's FEN/RENAL: Acute kidney injury - baseline creatinine around 0.9 07/17 Renal ultrasound revealed diffuse cortical thickening without hydronephrosis. Monitor renal function, I/O's, avoid nephrotoxins. s/p HD 09/01 Renal function is improving. Renal- Dr. Martinez. ID: Continue with ABX ( Cefepime, Zithromax, Flagyl) monitor for signs of infections ( Fever, WBC) Nasal aspirate negative for Influenza on 09/01 BC from 08/31: NGTD Sputum, urine cx: 08/31: NGTD HEME/ONC: History of non-small cell carcinoma status post right lower lobe lobectomy History of testicular cancer status post right orchiectomy Suspicious appearing mass in the left suprahilar region concerning for a primary lung malignancy. Leukocytosis Normocytic anemia NOAC use Monitor CBC daily. Follow trends Coags within normal limits. Bronch/biopsy only if there is clinical improvement ENDO: DM Low-dose insulin sliding scale every 4 hours TSH: 2.77 Access - Right IJ CVL placed 09/01 Prophylaxis - GI - Protonix - DVT - SCD. CCT 32 mins Dixon Antoine MD Sep 05, 2016 12:14
[2016-09-05] MEDS: VASOPRESSIN INJ 40 UNITS in DEXTROSE 5% IN WATER 100ML INJ 98 ML IV SCH ×2 (12:39)
[2016-09-05 15:08] LABS: BLOOD GAS BASE EXCESS -5.9 mmol/L (-2-2); BLOOD GAS CARBOXYHEMOGLOBIN 1.2 % (0-4); BLOOD GAS HCO3 19 mmol/L (22-26); BLOOD GAS METHEMOGLOBIN 1.3 % (0-2); BLOOD GAS O2 HGB SATURATION 96 % (90-100); BLOOD GAS OXYGEN CONTENT 12.8 Vol % (12.0-20.0); BLOOD GAS PCO2 39 mmHg (38-42); BLOOD GAS PO2 129 mmHg (61-120); BLOOD GAS TOTAL HGB 9.3 G/DL (12.0-16.0); TEMP CORR TO 98.6
[2016-09-05 15:09] LABS: CRITICAL VALUE NO; OXYGEN DEVICE VENTILATOR
[2016-09-05 15:10] LABS: DRAW SITE ART LINE; FIO2 40 %; VENT SETTINGS PRVC16/650/.85/+5
[2016-09-05 15:11] LABS: NUMBER OF ARTERIAL PUNCTURES 0; STAT NO; ULNAR PULSE PRESENT
[2016-09-05] MEDS: fentaNYL DRIP 250 ML IV SCH (16:41)
[2016-09-05] MEDS: SODIUM CHLOR 0.9% 1000 ML INJ 1,000 ML IV SCH ×2 (16:41→20:18)
[2016-09-05 17:53] LABS: HEPATITIS C RNA GENOTYPE NOT DETECTED (())
[2016-09-05] MEDS: THIAMINE INJ 100 MG in SODIUM CHLORIDE 0.9% INJ 100 ML IV SCH (18:21)
[2016-09-05] MEDS: PROPOFOL 1000 MG/100 ML INJ 100 ML IV SCH ×2 (18:23→23:07)
--- NOTE | 2016-09-05 18:51 | HHI.PR ---
Subjective Remarks 71 YOWM with VDRF,Ac Renal failure On Neosyn had HD No fever back on sedation due to agitation Objective Vital Signs Vital Signs Date Time Temp Pulse Resp B/P Pulse Ox O2 Delivery O2 Flow Rate FiO2 09/05/16 17:21 99 40 09/05/16 16:00 116 09/05/16 14:00 117 09/05/16 12:00 124 09/05/16 11:45 98 40 09/05/16 10:00 125 09/05/16 09:41 100 40 09/05/16 08:00 116 09/05/16 06:00 114 09/05/16 04:09 100 40 09/05/16 04:00 111 09/05/16 04:00 95.1 114 20 137/76 96 09/05/16 04:00 40 09/05/16 04:00 137/76 09/05/16 01:12 100 40 09/05/16 00:00 09/05/16 00:00 40 09/05/16 00:00 97.6 97 14 123/77 93 132/74 09/04/16 22:28 100 40 09/04/16 22:00 107 09/04/16 20:00 98.7 103 27 107/69 99 112/65 09/04/16 20:00 45 09/04/16 20:00 107 09/04/16 20:00 114 96/63 90/52 09/04/16 19:46 99 40 I/O 09/04/16 09/04/16 09/04/16 09/05/16 09/05/16 09/05/16 07:00 15:00 23:00 07:00 15:00 23:00 Intake Total 1241 ml 1905 ml 725 ml 1379 ml Output Total 100 ml 100 ml 125 ml 200 ml 4000 ml Balance 1141 ml 1805 ml 600 ml 1179 ml -4000 ml Intake IV Total 1010 ml 1585 ml 725 ml 1214 ml Tube Feeding 231 ml 320 ml 165 ml Output Urine Total 100 ml 100 ml 125 ml 200 ml Hemodialysis 4000 ml Result Diagram: 09/04/16 0415 09/04/16 0415 Objective Remarks GENERAL: WBWN WM, on vent, sedated SKIN: Warm and dry. HEAD: Normocephalic. EYES: No scleral icterus. No injection or drainage. NECK: Supple, trachea midline. No JVD or lymphadenopathy. CARDIOVASCULAR: Regular rate and rhythm without murmurs, gallops, or rubs. RESPIRATORY: Breath sounds equal bilaterally. No accessory muscle use. GASTROINTESTINAL: Abdomen soft, non-tender, nondistended. MUSCULOSKELETAL: No cyanosis, or edema. BACK: Nontender without obvious deformity. No CVA tenderness. A/P Assessment and Plan VDRF Acute renal failure Hypotension AF PLAN: Cont vent support Neosyn to support BP HD Cont Abx wean vent as tolerated Diprivan for sedation Amrit Garcia MD Sep 05, 2016 18:51
[2016-09-05] MEDS: LACTULOSE SYRUP 20 GM/30 ML CUP PO SCH (22:59)
[2016-09-06] VITALS (18 sets, daily range): BP systolic 85–110; BP diastolic 53–67; PULSE 70–137; RESP 16; TEMP 97–98.7; O2SAT 97–100
[2016-09-06] MEDS: metroNIDAZOLE 500 MG INJ 100 ML IV SCH ×4 (03:18→19:23)
[2016-09-06] MEDS: INSULIN ASPART SUPPLEMENTAL SCALE SQ SCH ×6 (03:19→23:43)
[2016-09-06] MEDS: CHLORHEXIDINE GLUCONATE 2 % 1 PACK (2 CLOTHS) TOP SCH (03:19)
[2016-09-06 04:21] LABS: AUTOMATED NEUTROPHIL # 17.9 TH/MM3 (1.8-7.7); BASOPHIL % 0.1 % (0.0-2.0); HEMATOCRIT 28.6 % (39.0-51.0); LYMPH % 1.9 % (9.0-44.0); LYMPHOCYTE # 0.4 TH/MM3 (1.0-4.8); MEAN CELL VOLUME 89.4 FL (80.0-100.0); MEAN CORPUSCULAR HGB CONC 31.3 % (32.0-36.0); MONO % 6.1 % (0.0-8.0); NEUT % 91.9 % (16.0-70.0); PLATELET COUNT 153 TH/MM3 (150-450); RED CELL DISTRIBUTION WIDTH 17.4 % (11.6-17.2); WHITE BLOOD COUNT 19.4 TH/MM3 (4.0-11.0)
[2016-09-06 04:31] LABS: HEMO FLAGS AUTO DIFF
[2016-09-06] MEDS: LACTULOSE SYRUP 20 GM/30 ML CUP PO SCH ×4 (04:45→23:00)
[2016-09-06] MEDS: HYDROCORTISONE SOD SUCCINATE 100 MG VIAL IV PUSH SCH ×3 (04:46→23:33)
[2016-09-06] MEDS: PROPOFOL 1000 MG/100 ML INJ 100 ML IV SCH ×2 (04:46→11:14)
[2016-09-06] MEDS: SODIUM CHLOR 0.9% 1000 ML INJ 1,000 ML IV SCH ×2 (04:46→14:51)
[2016-09-06 04:48] LABS: ALKALINE PHOSPHATASE 112 U/L (45-117); ALT (GPT) 135 U/L (12-78); ANION GAP 12 MEQ/L (5-15); AST (GOT) 298 U/L (15-37); BICARBONATE 24.7 MEQ/L (21.0-32.0); BLOOD UREA NITROGEN 66 MG/DL (7-18); CHLORIDE 104 MEQ/L (98-107); GLOMERULAR FILTRATION RATE 19 ML/MIN (>89); MAGNESIUM 2.3 MG/DL (1.5-2.5); POTASSIUM 4.1 MEQ/L (3.5-5.1); SODIUM (NA) 141 MEQ/L (136-145)
[2016-09-06 05:31] LABS: PLATELET ESTIMATE SMEAR NORMAL (NORMAL); PLATELET MORPHOLOGY NORMAL (NORMAL); SCAN/DIFF AUTO DIFF CONFIRMED
--- NOTE | 2016-09-06 05:51 | RADRPT ---
EXAM DATE/TIME: 09/06/2016 04:31 [place] COMPARISON: CHEST SINGLE AP, September 02, 2016, 5:08. INDICATIONS : Evaluate for respiratory disease. MEDICAL HISTORY : Chronic obstructive pulmonary disease. Hypertension Carcinoma, testicular. MAGO Hep C A-fib Lung Ca SURGICAL HISTORY : Lobectomy. Liver Resection ENCOUNTER: Subsequent ACUITY: 1 week PAIN SCORE: Non-responsive. LOCATION: chest FINDINGS: A single view of the chest demonstrates persistent elevation of the right hemidiaphragm with concomit ant atelectatic changes in the right lung base. Stable volume loss in the right hemithorax. Left lung is clear with minimal atelectatic changes above the left hemidiaphragm. Stable position of life supp ort tubes including a right IJ central venous catheters, endotracheal tube and nasogastric tube. CONCLUSION: 1. Stable elevation of right hemidiaphragm with volume loss in the right hemithorax. 2. Bibasilar atelectatic changes. 3. Stable position of life support tubes. Johnson Cisneros MD on September 06, 2016 at 5:46 Board Certified Radiologist. This report was verified electronically.
[2016-09-06] MEDS: RESP: BUDESONIDE 0.5 MG/2 ML NEB NEB SCH ×2 (07:28→21:35)
[2016-09-06] MEDS: RESP: ALBUTEROL 2.5 MG/3 ML NEB (PRN) NEB (07:38)
[2016-09-06] MEDS: SEVELAMER CARBONATE 800 MG TAB PO SCH ×3 (08:00→17:00)
[2016-09-06] MEDS: fentaNYL DRIP 250 ML IV SCH ×2 (08:13→23:34)
[2016-09-06] MEDS: AZITHROMYCIN INJ 500 MG in SODIUM CHLOR 0.9% 250 ML INJ 250 ML IV SCH (08:14)
[2016-09-06] MEDS: ASPIRIN 81 MG CHEW TAB CHEW SCH (08:17)
[2016-09-06] MEDS: MULTIVITAMINS/MINERALS THERAPEUTIC TAB OG-TUBE SCH (08:17)
[2016-09-06] MEDS: FOLIC ACID 1 MG TAB OG-TUBE SCH (08:17)
[2016-09-06] MEDS: NICOTINE 21 MG/24 HR PATCH T-DERMAL SCH (08:17)
[2016-09-06] MEDS: busPIRone HCL 5 MG TAB PO SCH ×3 (08:17→17:32)
[2016-09-06] MEDS: DOCUSATE SODIUM 50 MG/SENNA 8.6 MG TAB PO SCH ×2 (08:17→19:24)
[2016-09-06] MEDS: REMOVE OLD PATCH-NICOTINE T-DERMAL SCH (08:18)
[2016-09-06] MEDS: SODIUM CHLORIDE 0.9% FLUSH 10 ML FLUSH IV FLUSH SCH ×2 (08:18→19:24)
[2016-09-06] MEDS: SODIUM CHLORIDE 0.9% FLUSH 10 ML FLUSH IVF SCH (08:18)
[2016-09-06] MEDS: PANTOPRAZOLE SODIUM 40 MG VIAL IV SCH (08:19)
[2016-09-06] MEDS: ARTIFICIAL TEARS OPTH SOLN 15 ML BTL EACH EYE SCH ×3 (08:19→17:32)
[2016-09-06] MEDS: CHLORHEXIDINE 0.12% (ORAL KIT) 15 ML CUP MT SCH ×2 (08:20→19:04)
[2016-09-06] MEDS: THIAMINE INJ 100 MG in SODIUM CHLORIDE 0.9% INJ 100 ML IV SCH (09:21)
--- NOTE | 2016-09-06 10:12 | HHI.NPPN ---
Subjective History of Present Illness 71-year-old with acute renal failure, atrial fibrillation Objective Data Data 09/05/16 09/06/16 19:00 07:00 Intake Total 1070 ml 2933 ml Output Total 4150 ml 475.0 ml Balance -3080 ml 2458.0 ml Intake IV Total 881 ml 2554 ml Tube Feeding 189 ml 199 ml Other 180 ml Output Urine Total 150 ml 275 ml Tube Feeding Residual Discard 200.0 ml Hemodialysis 4000 ml # Bowel Movements 1 Vital Signs Date Time Temp Pulse Resp B/P Pulse Ox O2 Delivery O2 Flow Rate FiO2 09/06/16 07:28 97 40 09/06/16 06:00 100 09/06/16 05:15 40 09/06/16 04:06 100 40 09/06/16 04:00 98.2 99 16 110/67 98 110/66 09/06/16 04:00 45 09/06/16 04:00 99 09/06/16 04:00 99 110/66 09/06/16 02:00 104 09/06/16 01:53 99 50 09/06/16 01:00 50 09/06/16 00:00 98.0 129 16 93/61 97 09/06/16 00:00 129 09/06/16 00:00 129 90/55 Arterial Line 09/06/16 00:00 40 09/05/16 22:00 120 09/05/16 20:00 117 114/69 79/51 09/05/16 20:00 117 09/05/16 20:00 40 09/05/16 20:00 97.7 117 17 117/70 98 114/69 09/05/16 19:55 98 40 09/05/16 18:00 116 09/05/16 17:21 99 40 09/05/16 16:00 97.7 116 16 79/51 97 84/57 09/05/16 16:00 116 84/57 79/51 09/05/16 16:00 116 09/05/16 16:00 40 09/05/16 14:00 117 09/05/16 12:00 40 09/05/16 12:00 99.7 124 21 160/100 100 170/80 09/05/16 12:00 124 09/05/16 12:00 124 160/100 170/80 09/05/16 11:45 98 40 -: 09/06/16 0315 09/06/16314 Physical Exam General Appearance: Well Developed Neck Neck Exam: Neck Supple Pulmonary Resp Exam: Decreased Bases Cardiology CV Exam: Arrhythmia Gastrointestinal/Abdomen GI Exam: Soft, Non-Tender Extremeties Extremities Exam: Trace Edema Assessment/Plan Problem List: (1) Acute renal failure Plan: Creatinine is slowly declining urine output is fair continue to monitor BMP HD next tomorrow family talking to palliative care due to Comorbid conditions Avoid nephrotoxins Follow BMP (2) Atrial flutter with rapid ventricular response Plan: Stable EF of 70% (3) Congestive heart failure Plan: Continue to monitor (4) COPD with exacerbation Plan: on Alysha Raines MD Sep 06, 2016 10:12
--- NOTE | 2016-09-06 10:26 | HHI.CCPN ---
Subjective Remarks/Hospital Course Unable to obtain history from patient as he was intubated in the ED prior to admission. I attempted to call Jesse Veliz who is a friend listed as his next of kin contact but there was no answer. History obtained from EMR and discussion with Dr. Villavicencio. 71-year-old male with past medical history of COPD on home O2, hypertension, diabetes, history of paroxysmal atrial flutter on chronic anticoagulation with Eliquis, testicular cancer, hepatitis C, alcohol abuse who presented to [facility] emergency department via [facility] with severe respiratory distress. He indicated to the ED physician that he been feeling poorly for 2 days and had had a subjective fever. Reportedly sats were 94% at the scene. He was given albuterol treatment. C Pap was attempted but he was unable to tolerate. He was given Lasix 100 mg IV because he carried a history of CHF. He was severely dyspneic on arrival and was intubated for impending respiratory failure. He was in A. fib RVR with rate in the 120s. He has been administered Cardizem 20 mg IV total. Heart rate remains in the 120s. He received Duoneb x2 and Solumedrol 125 mg IV. He is in acute renal failure and acute hypercapnic respiratory failure Subjective 09/01: Patient hypotensive overnight requiring placement of central line for vasopressor support. Essentially anuric since 2 AM. Arousable and does follow commands on the ventilator. Potassium remains elevated and he received Kayexalate and sodium bicarbonate pushes overnight along with D50/insulin. Recheck at 10 AM. No peak T waves on monitor. 09/02 Patient is sedated with Diprivan, Fentanyl and intubated. Afebrile. On Neosyn 110mics, Vasopressin and Cardizem 5mg/hr. HD initiated yesterday with removal 1.5L. 09/03 Patient remains intubated and sedated with Diprivan and Fentanyl. Off Vasopressin, Neosyn down to 60 mics from 110. Renal function is improving with Cr: 3.99 from 4.39 09/04: Patient intubated, sedated, gets very agitated on sedation lowering. Remains on Ranjeet-Synephrine at 60 mcg/m. I'll start Precedex to facilitate ventilator weaning. WBC count worsening 09/05: Continues to remain severely encephalopathy. On sedation on lightening shows 100 and agonal breathing on the ventilator. Profoundly acidemic with CO2 retention on CPAP trial yesterday. No improvement in mental status. Requiring Ranjeet-Synephrine on and off 09/06 Patient is sedated with Diprivan, Fentanyl and intubated. On Neosyn 30 mics , s/p HD yesterday with removal 4L. Afebrile. Objective Vital Signs Date Time Temp Pulse Resp B/P Pulse Ox O2 Delivery O2 Flow Rate FiO2 09/06/16 07:28 97 40 09/06/16 06:00 100 09/06/16 04:00 98.2 16 110/67 110/66 Intake and Output 09/05/16 09/05/16 09/06/16 08:00 16:00 00:00 Intake Total 1379 ml 1070 ml 1757 ml Output Total 200 ml 4150 ml 350.0 ml Balance 1179 ml -3080 ml 1407.0 ml Result Diagram: 09/06/16 0315 09/06/16 0315 Other Results Laboratory Tests Test 09/05/16 09/05/16 09/05/16 09/06/16 13:17 14:45 22:55 03:15 Ammonia 138 MCMOL/L 122 MCMOL/L Blood Gas Puncture Site ART LINE Blood Gas Patient Temperature 98.6 Blood Gas HCO3 19 mmol/L Blood Gas Base Excess -5.9 mmol/L Blood Gas Oxygen Saturation 96 % Arterial Blood pH 7.32 Arterial Blood Partial 39 mmHg Pressure CO2 Arterial Blood Partial 129 mmHg Pressure O2 Arterial Blood Oxygen Content 12.8 Vol % Arterial Blood 1.2 % Carboxyhemoglobin Arterial Blood Methemoglobin 1.3 % Blood Gas Hemoglobin 9.3 G/DL Oxygen Delivery Device VENTILATOR Blood Gas Ventilator Setting PRVC16/650/.85/+5 Blood Gas Inspired Oxygen 40 % White Blood Count 19.4 TH/MM3 Red Blood Count 3.20 MIL/MM3 Hemoglobin 9.0 GM/DL Hematocrit 28.6 % Mean Corpuscular Volume 89.4 FL Mean Corpuscular Hemoglobin 28.0 PG Mean Corpuscular Hemoglobin 31.3 % Concent Red Cell Distribution Width 17.4 % Platelet Count 153 TH/MM3 Mean Platelet Volume 7.8 FL Neutrophils (%) (Auto) 91.9 % Lymphocytes (%) (Auto) 1.9 % Monocytes (%) (Auto) 6.1 % Eosinophils (%) (Auto) 0.0 % Basophils (%) (Auto) 0.1 % Neutrophils # (Auto) 17.9 TH/MM3 Lymphocytes # (Auto) 0.4 TH/MM3 Monocytes # (Auto) 1.2 TH/MM3 Eosinophils # (Auto) 0.0 TH/MM3 Basophils # (Auto) 0.0 TH/MM3 CBC Comment AUTO DIFF Differential Comment AUTO DIFF CONFIRMED Platelet Estimate NORMAL Platelet Morphology Comment NORMAL Sodium Level 141 MEQ/L Potassium Level 4.1 MEQ/L Chloride Level 104 MEQ/L Carbon Dioxide Level 24.7 MEQ/L Anion Gap 12 MEQ/L Blood Urea Nitrogen 66 MG/DL Creatinine 3.21 MG/DL Estimat Glomerular Filtration 19 ML/MIN Rate Random Glucose 140 MG/DL Calcium Level 8.8 MG/DL Magnesium Level 2.3 MG/DL Total Bilirubin 1.0 MG/DL Aspartate Amino Transf 298 U/L (AST/SGOT) Alanine Aminotransferase 135 U/L (ALT/SGPT) Alkaline Phosphatase 112 U/L Total Protein 5.9 GM/DL Albumin 3.6 GM/DL Imaging Last Impressions Chest X-Ray 09/06/16 0600 Signed Impressions: Service Date/Time: Tuesday, September 06, 2016 04:31 - CONCLUSION: 1. Stable elevation of right hemidiaphragm with volume loss in the right hemithorax. 2. Bibasilar atelectatic changes. 3. Stable position of life support tubes. Johnson Cisneros MD Liver Ultrasound 09/02/16 0000 Signed Impressions: Service Date/Time: Friday, September 02, 2016 11:53 - CONCLUSION: Mild ascites. Nonvisualization of flow in the portal vein. Sivakumar Brush MD FACR Lower Extremity Ultrasound 09/01/16 0000 Signed Impressions: Service Date/Time: Thursday, September 01, 2016 16:09 - CONCLUSION: Nonocclusive thrombus in the left common femoral and greater saphenous veins. No DVT is seen on the right. Arash Chávez MD Head CT 09/01/16 0000 Signed Impressions: Service Date/Time: Thursday, September 01, 2016 20:31 - CONCLUSION: No acute disease. Arash Chávez MD Chest CT 09/01/16 0000 Signed Impressions: Service Date/Time: Thursday, September 01, 2016 20:35 - CONCLUSION: 1. Suspicious appearing mass in the left suprahilar region concerning for a primary lung malignancy. In addition there is very prominent adenopathy seen throughout the mediastinum and left hilar region all concerning for a neoplastic disease. 2. There are ill-defined masses seen around the kidneys bilaterally. At the time a read the CT of the abdomen I was unaware of the CT of the chest findings. The abnormality in the chest makes metastases responsible for the masses in the pararenal spaces more likely. Arash Chávez MD Abdomen/Pelvis CT 09/01/16 0000 Signed Impressions: Service Date/Time: Thursday, September 01, 2016 20:35 - CONCLUSION: 1. Multiple retroperitoneal mass is seen around the kidneys bilaterally being more numerous and larger on the right. This appearance is quite unusual. Neoplastic processes from metastases may have this appearance but typically metastases would be seen elsewhere. Inflammatory change could have this appearance but the underlying kidneys appear grossly normal. These are of uncertain etiology. They are amenable to biopsy. 2. Focal area of thickening at the mid small bowel. An area of enteritis could have this appearance. An area of small bowel hemorrhage or infiltrating neoplasm cannot be excluded. 3. Mild ascites. 4. Avascular necrosis of the femoral head. Arash Chávez MD Renal Ultrasound 08/31/16 Signed Impressions: Service Date/Time: Wednesday, August 31, 2016 23:47 - CONCLUSION: Diffuse cortical thinning of both kidneys. Scattered ascites throughout the abdomen.. Olvin Guzman MD Objective Remarks GENERAL: 71-year-old male resting in bed sedated on the ventilator SKIN: Warm, dry, with no rash HEAD: Atraumatic. Normocephalic. EYES: Pupils equally round and reactive. No scleral icterus. No injection or drainage. ENT: No nasal bleeding or discharge. Mucous membranes pink and moist. Oropharynx currently orotracheally intubated. OG tube in place NECK: Trachea midline. No JVD appreciated. Obese. Right IJ CVL clean dry and intact CARDIOVASCULAR: Heart sounds due to body habitus. Active, RR. S1, S2. No S4. No murmurs, clicks, gallops or rubs appreciated. RESPIRATORY: Very distant breath sounds with poor air movement bilaterally. Positive expiratory wheeze GASTROINTESTINAL: Abdomen protuberant, soft, with some mild distension, no tenderness, no rebound or guarding. Bowel sounds present MUSCULOSKELETAL: Extremities without clubbing, cyanosis. There is 1 + pitting pretibial edema. Bilateral anterior tibial scarring/hold NEUROLOGICAL: Intubated, sedated. On sedation hold shows agonal breathing. Spontaneously opens eyes, do not follow commands Date of Insertion: Sep 01, 2016 Line: Central Venous Catheter Side: Right Location: Internal, Jugular A/P Assessment and Plan NEURO/PSYCH: Anxiety EtOH abuse/dependence - 6-8 drinks of hard liquor daily History of migraine headache On Diprivan and Fentanyl infusion for sedation and vent synchrony. Daily sedation vacation as beau Goal of RASS -2. Continue BuSpar 5 tid for anxiety disorder Monitor for signs and symptoms of alcohol withdrawal/protocol initiated Thiamine 100 mg daily/folic acid 1 mg daily/multivitamin 1 tablet daily for EtOH abuse Check Ammonia level( NH4 level 122 last night) recheck level, on lactulose 30ml Q6 RESP: Acute hypercapnic respiratory failure Acute COPD exacerbation MAGO - not on CPAP Tobacco abuse/ongoing one half pack per day PRVC 16/tidal volume around 650/0.85/5/40- Ventilator bundle. DuoNeb every 4 hours. Albuterol every 2 hours as needed for wheezing. On Solucortef 100mg IV Q8. Pulmicort one inhalation twice a day 09/01 CT chest: Suspicious appearing mass in the left suprahilar region concerning for a primary lung malignancy. Prominent adenopathy seen throughout the mediastinum and left hilar region all concerning for a neoplastic disease. There are ill-defined masses seen around the kidneys bilaterally Pulm Dr. Garcia. No intervention at this time re left suprahilar mass per pulm. CV: Hypotension/Shock History of Hypertension Paroxysmal atrial fibrillation with RVR Chronic diastolic heart failure with preserved EF Wean off Neosyn monitor HR and BP keep MAP>65mmHg Amiodarone on hold for elevated LFT Echo showed EF 65%-70%, technically difficult study. Holding lisinopril 10 mg by mouth daily in light of acute kidney injury GI: History of hepatitis C unknown treatment status GERD Elevated LFT's Continue tube feeds- Nepro with goal rate 40ml/hr US liver: Mild ascites. Nonvisualization of flow in the portal vein. Protonix for GI prophylaxis Lizz-Colace for bowel regimen Monitor LFT's FEN/RENAL: Acute kidney injury - baseline creatinine around 0.9 5/17 Renal ultrasound revealed diffuse cortical thickening without hydronephrosis. Monitor renal function, I/O's, avoid nephrotoxins. Cr: 3.21, UOP 425 ml in 4hrs .s/p HD 09/05 with 4L removed ID: Continue with ABX ( Cefepime, Zithromax, Flagyl) monitor for signs of infections ( Fever, WBC) Nasal aspirate negative for Influenza on 09/01 BC from 08/31: NGTD Sputum, urine cx: 08/31: NGTD HEME/ONC: History of non-small cell carcinoma status post right lower lobe lobectomy History of testicular cancer status post right orchiectomy Suspicious appearing mass in the left suprahilar region concerning for a primary lung malignancy. Leukocytosis Normocytic anemia NOAC use Monitor CBC daily. Follow trends Coags within normal limits. Bronch/biopsy only if there is clinical improvement ENDO: DM Low-dose insulin sliding scale every 4 hours TSH: 2.77 Access - Right IJ CVL placed 09/01 Prophylaxis - GI - Protonix - DVT - SCD. Palliative care is consulted to asses with goals of care CCT 30 mins Desi Navarro MD Sep 06, 2016 10:26
--- NOTE | 2016-09-06 11:23 | PD.CONS ---
Consult Service Palliative Care Consult Requested By Dr. Antoine. Primary Care Physician [facility] Reason for Consultation a. To assist with evaluation and management of symptoms including: Shortness of breath, pain and debility. b. To assist medical decision maker(s) with: better understanding of current medical conditions; weighing benefits/burdens of medical treatment options; making medical treatment decisions. . HPI History of Present Illness Mr. Elliott is a 71-year-old male with a medical history significant for O2 dependent COPD , non-small cell carcinoma status post right lobectomy, testicular cancer status post orchiectomy, diabetes mellitus type 2, hypertension, atrial fibrillation/atrial flutter on anticoagulation, CHF and EtOH use and abuse. Patient presented to the emergency room via EMS on 08/31/16. As per medical records, upon EMS arrival to patient's home, he endorsed not feeling well for the 2 previous days. O2 saturation found a 94%, he received albuterol treatment in route to the hospital however became agitated. Patient was unable to tolerate CPAP and became tachycardic. Upon arrival to ED, patient was intubated and placed on mechanical ventilation. Patient was found in atrial fibrillation with RVR with heart rate in the 120s. Patient was admitted for further management. Nephrology, Dr. Martinez consulted on 09/01/16 for acute renal failure evaluation and management. Renal ultrasound revealed diffuse cortical thinning of both kidneys and scattered ascites throughout the abdomen. Patient intubated and anuric. Patient was started on hemodialysis, 1.5 L removed. Echocardiogram obtained on 09/01/16 revealing EF in the range of 65-70%. Pulmonology, Dr. Garcia consulted on 09/02/16 for pulmonary evaluation. Patient remains on ventilator support, requiring Ranjeet-Synephrine drip secondary to hypertension. Patient agitated when sedation is decreased, has continued requiring Ranjeet-Synephrine drip for hypotension. Patient encephalopathic, head CT obtained on 09/01/16 showing no acute process. Chest CT obtained on 09-16 revealing suspicious appearing mass in the left suprahilar region concerning for a primary lung malignancy. In addition to adenopathy throughout the mediastinum. CT of abdomen/pelvis 09/01/16 revealing multiple masses around the kidneys bilaterally, concerning for metastatic disease. Liver ultrasound 09/02/16 showing mild ascites. Patient's clinical condition complicated by multisystem organ failure. Patient noted with agonal breathing son ventilator support, CO2 retention on CPAP trials yesterday. Worsening leukocytosis, WBC 19.4 today. Hemodialysis yesterday, 4 L removed. Patient was started on Ranjeet-Synephrine secondary to hypotension. The provider was added secondary to tachycardia and restlessness. Elevated ammonia, 122 today. Palliative care has been consulted for further clarifications of goals of care and family support given worsening clinical condition. Reviewed recent prior acute hospitalizations. This is patient's fourth acute hospitalization this year. Previous hospitalization 07/16/16 to 07/24/16 secondary to COPD exacerbation and hypoxia. Patient was discharged home with home health. Hospitalization 05/21/16 to 05/28/16 secondary to atrial flutter with RVR and CHF. Patient was discharge to [facility]. Prior hospitalization 04/25/16 to 04/2816 secondary to A. fib/atrial flutter, new onset. Patient was discharged to [facility]. Patient remains intubated on mechanical ventilation. He was seen in ICU, briefly opening eyes to tactile stimuli. Not following commands. Patient afebrile, FiO2 40%. Laboratory workup today revealing WBC 19.4, Hgb 9.0, platelet count 153. Sodium 141, potassium 4.1, BUN/creatinine 66/3.1. AST 298 , ALT 135, alkaline phosphatase 112. Albumin 3.6. Case discussed with Dr. Navarro and bedside RN Chrissy. Telephone conversation with patient's son Sivakumar Elliott, separate telephone conversation with patient's sister Rhonda Elliott. Obtain medical history and psychosocial history. Reviewed patient's past medical history to include multiple comorbidities and multiple recent acute hospitalizations. Reviewed events leading to these hospitalization, clinical course, results of CT scans, and current clinical management. Discussed risks, limitations and benefits of CPR given patient's past medical history and current clinical status. Both son and pt's sister electing no code at this time. Goal of care is to allow the weekend to evaluate patient's clinical condition, palliative care will regroup with patient's family on Friday morning for further clarifications of goals of care. Both patient's son and sister verbalized that patient would decline long- term life support such as trach, PEG or continuation of hemodialysis long-term. Family likely to transition patient to comfort-directed care early next week should his clinical condition continues to worsen. Active listening and ongoing emotional support provided, all questions were answered in great detail. . Function/Cognitive Trajectory Patient disabled. Residing with a roommate. Mostly independent with ADLs, progressive decline since March 2016. Using walker for short distance, wheelchair for long-distance. O2 dependent at home secondary to COPD. . Review of Systems ROS Limitations: Clinical Condition, Intubated Constitutional: COMPLAINS OF: Fatigue Eyes: DENIES: Eye inflammation Ears, nose, mouth, throat: DENIES: Nasal discharge, Running Nose Respiratory: COMPLAINS OF: Sputum production, Shortness of breath Cardiovascular: COMPLAINS OF: Dyspnea on Exertion, Lower Extremity Edema Gastrointestinal: DENIES: Diarrhea, Vomiting Integumentary: DENIES: Rash Hematologic/Lymphatics: COMPLAINS OF: Bruising Immunologic/Allergic: DENIES: Eczema Neurologic: COMPLAINS OF: Abnormal gait, Poor Balance Psychiatric: COMPLAINS OF: Anxiety, Agitation Other ROS: Limited ROS secondary to patient clinical condition, intubated on mechanical ventilation. ROS obtained from medical records, patient's family and clinical observation. Past Family Social History Coded Allergies: No Known Allergies (Verified , 08/31/16) Past Medical History COPD O2 depending Obstructive sleep apnea Hypertension Diabetes mellitus type 2 Atrial fibrillation on anticoagulation Hepatitis C EtOH use and abuse History of non-small cell lung carcinoma status post right lobectomy Testicular cancer status post orchiectomy GERD . Past Surgical History Right lumpectomy Orchiectomy Partial liver resection Hand surgery . Reported Medications Prednisone 5 Mg Tab 5 Mg PO DIRECTED 10 Days 40 mg po daily for two days then 30 mg po daily for two days then 20 mg po daily for two days then 10 mg po daily for two days then 5 mg po daily for two days then stop. Furosemide 40 Mg Tab 40 Mg PO DAILY Albuterol Neb (Albuterol Sulfate) 2.5 Mg/3 Ml Neb 2.5 Mg INH Q4HR NEB PRN Amiodarone (Amiodarone HCl) 200 Mg Tab 200 Mg PO DAILY Cardizem CD 24 HR (Diltiazem CD 24 HR) 180 Mg Caper 360 Mg PO DAILY Pantoprazole (Pantoprazole Sodium) 40 Mg Tab 40 Mg PO DAILY Eliquis (Apixaban) 5 Mg Tab 5 Mg PO BID Duoneb (Ipratropium-Albuterol Neb) 0.5-2.5 Mg/3 Ml Neb 1 Ampule INH Q6HR WHILE AWAKE NEB PRN Symbicort Inh (Budesonide/Formoterol Fumarate) 160-4.5 Mcg/Act Aero 2 Puff INH Q12HR Buspirone (Buspirone HCl) 5 Mg Tab 5 Mg PO TID Spiriva Handihaler (Tiotropium Inh) 18 Mcg Cap 1 Puff INH DAILY Multi Vitamin and Mineral (Multiple Vitamins W/ Minerals) 1 Tab Tab 1 Tab PO DAILY Guaifenesin Liq (Guaifenesin) 100 mg/5 ML Soln 200 Mg PO QID PRN Lisinopril 10 Mg Tab 10 Mg PO DAILY Aspirin EC Low Dose (Aspirin) 81 Mg Tabec 162 Mg PO DAILY Nicotine Patch (Nicotine) 21 Mg/24 Hr Patch 21 Mg T-DERMAL DAILY . Current Medications Medications (Trade) Dose Ordered Sig/Elif Route Start Time Stop Time Status Last Admin Propofol 100 ml @ 0 mls/hr TITRATE IV 08/31/16 18:15 09/06/16 04:46 (fentaNYL DRIP) 250 ml @ 0 mls/hr TITRATE IV 08/31/16 22:15 09/06/16 08:13 (Cordarone) 200 mg DAILY PO 09/01/16 09:00 Hold 09/02/16 08:38 (Buspar) 5 mg TID PO 09/01/16 09:00 09/06/16 08:17 Miscellaneous Information 1 DAILY T-DERMAL 09/01/16 09:00 09/06/16 08:18 (Folate) 1 mg DAILY OG-TUBE 09/01/16 09:00 09/06/16 08:17 (Theragran M Tab) 1 tab DAILY OG-TUBE 09/01/16 09:00 09/06/16 08:17 (D50w (Vial) Inj) 50 ml UNSCH PRN IV 08/31/16 23:30 (Glucagon Inj) 1 mg UNSCH PRN OTHER 08/31/16 23:30 (NovoLOG SUPPLEMENTAL SCALE) 1 Q4H SQ 09/01/16 00:00 09/04/16 23:17 Chlorhexidine Gluconate 15 ml 15 ml BID@08,20 MT 09/01/16 08:00 09/06/16 08:20 Sodium Chloride 1,000 ml @ 100 mls/hr Q10H IV 09/01/16 05:30 09/06/16 04:46 Phenylephrine HCl 160 mg/Dextrose 500 ml @ 0 mls/hr TITRATE IV 09/01/16 06:30 09/04/16 14:49 (Thiamine Inj/NS Inj) 101 ml @ 101 mls/hr DAILY IV 09/01/16 09:00 09/06/16 09:21 Aspirin 162 mg 162 mg DAILY CHEW 09/01/16 09:00 09/06/16 08:17 (Zithromax Inj/ NS 250 ml Inj) 250 ml @ 250 mls/hr Q24H IV 09/01/16 08:00 09/06/16 08:14 (NS Flush) DAILY IVF 09/01/16 09:00 09/06/16 08:18 (NS Flush) UNSCH PRN IVF 09/01/16 07:30 (NS Flush) 2 ml UNSCH PRN IV FLUSH 09/01/16 07:30 09/01/16 16:53 (NS Flush) 2 ml BID IV FLUSH 09/01/16 09:00 09/06/16 08:18 (Protonix Inj) 40 mg DAILY IV 09/01/16 09:00 09/06/16 08:19 Miscellaneous Information 1 Q361D XX 09/01/16 07:30 09/01/16 07:30 (Chlorhexidine 2% Cloth) 3 pack Taper DAILY@04 TOP 09/02/16 04:00 08/29/17 03:59 09/04/16 19:31 (Chlorhexidine 2% Cloth) 3 pack UNSCH PRN TOP 09/01/16 07:30 Sevelamer Carbonate 800 mg 800 mg TIDAC PO 09/01/16 08:00 09/04/16 12:58 (NS 1000 ml Inj) 1,000 ml @ 0 mls/hr Q0M PRN IV 09/01/16 11:12 09/05/16 10:13 Heparin Sodium (Porcine) 8000 units 8,000 units UNSCH PRN IVF 09/01/16 11:15 Sodium Chloride 1,000 ml @ 200 mls/hr Q5H PRN IV 09/01/16 11:12 (NS 1000 ml Inj) 1,000 ml @ 0 mls/hr Q0M PRN IV 09/01/16 11:12 (Mannitol Inj) 12.5 gm UNSCH PRN IV 09/01/16 11:15 09/05/16 10:13 (Albumin 25% Inj) 25 gm UNSCH PRN IV 09/01/16 11:15 09/05/16 10:12 (NS Flush) 5 ml UNSCH PRN IV FLUSH 09/01/16 11:15 (Heparin Inj) UNSCH PRN .XX 09/01/16 11:15 09/05/16 10:12 (Gentamicin (Dialysis) Inj) 20 mg UNSCH PRN IV 09/01/16 11:15 09/05/16 10:12 (Zofran Inj) 4 mg UNSCH PRN IV 09/01/16 11:15 (Tylenol) 650 mg UNSCH PRN PO 09/01/16 11:15 (Benadryl) 25 mg UNSCH PRN PO 09/01/16 11:15 (Nitrostat Sl) 0.4 mg UNSCH PRN SL 09/01/16 11:15 (Gelfoam 12 Mm/7 Mm Top) 1 foam UNSCH PRN TOP 09/01/16 11:15 (NS Flush) UNSCH PRN IVF 09/01/16 11:45 (Heparin Inj) UNSCH PRN IV FLUSH 09/01/16 11:45 Clonidine 0.1 mg 0.1 mg UNSCH PRN PO 09/01/16 11:45 (Pitressin Inj/ D5W 100 ml Inj) 100 ml @ 1.5 mls/hr Q24H IV 09/01/16 12:39 09/02/16 04:04 Hydrocortisone Sodium Succinate 100 mg 100 mg Q8HR IV PUSH 09/01/16 14:00 09/06/16 04:46 Metronidazole 100 ml @ 100 mls/hr Q6H IV 09/01/16 15:00 09/06/16 08:13 Cefepime HCl 2000 mg/Sodium Chloride 100 ml @ 200 mls/hr Q48H PRN IV 09/01/16 16:00 (Levophed Inj/NS 250 ml Inj) 250 ml @ 0 mls/hr TITRATE IV 09/01/16 15:00 (Brethine Inj) 1 mg UNSCH PRN SQ 09/01/16 15:00 (Tears Naturale Opth Soln) 1 drop TID EACH EYE 09/01/16 18:00 09/06/16 08:19 (Zofran Inj) 4 mg Q6H PRN IV 09/01/16 15:45 (Lizz-Colace) 1 tab BID PO 09/01/16 21:00 09/06/16 08:17 (Milk Of Magnesia Liq) 30 ml Q12H PRN PO 09/01/16 15:45 (Senokot) 17.2 mg Q12H PRN PO 09/01/16 15:45 (Dulcolax Supp) 10 mg DAILY PRN RECTAL 09/01/16 15:45 (Lactulose Liq) 30 ml DAILY PRN PO 09/01/16 15:45 (Habitrol 21 Mg Patch.24 Hr) 1 patch DAILY T-DERMAL 09/04/16 09:00 09/06/16 08:17 (Lactulose Liq) 30 ml Q6H PO 09/05/16 23:00 09/06/16 04:45 Family History Mother with brain and lung cancer. Father of old age. . Substance Use Tobacco: History of half a pack of cigarettes per day. Alcohol: Alcohol use, reporting 6-8 drinks of hard liquor daily. Prescription med abuse: None reported. Illicits: None reported. . Psychosocial History Patient originally from [place]. for 35 years and . One biological son, Sivakumar. Patient served for [employer] in [place]. . Spiritual/Cultural Factors Catholic rach. Health Care Surrogate: Completed, but not made available Date completed: Pending copy. Health Care Surrogate(s): Patient reported on 05/21/16 that her sister Rhonda Elliott if HCS. Sister confirmed this information, she will bring copy of designation of healthcare surrogate. . Documented care wishes: Pending copy of living will. . Family/friends goals: No code. Continue with current medical management for now, ongoing goals of care decision at this time. Family likely to transition patient to comfort- directed care early next week should his clinical condition continues to worsen. . Ethical and Legal Issues Pending copy of advance directives. . Physical Exam Vital Signs Date Time Temp Pulse Resp B/P Pulse Ox O2 Delivery O2 Flow Rate FiO2 09/06/16 07:28 97 40 09/06/16 06:00 100 09/06/16 05:15 40 09/06/16 04:06 100 40 09/06/16 04:00 98.2 99 16 110/67 98 110/66 09/06/16 04:00 45 09/06/16 04:00 99 09/06/16 04:00 99 110/66 09/06/16 02:00 104 09/06/16 01:53 99 50 09/06/16 01:00 50 09/06/16 00:00 98.0 129 16 93/61 97 09/06/16 00:00 129 09/06/16 00:00 129 90/55 Arterial Line 09/06/16 00:00 40 09/05/16 22:00 120 09/05/16 20:00 117 114/69 79/51 09/05/16 20:00 117 09/05/16 20:00 40 09/05/16 20:00 97.7 117 17 117/70 98 114/69 09/05/16 19:55 98 40 09/05/16 18:00 116 09/05/16 17:21 99 40 09/05/16 16:00 97.7 116 16 79/51 97 84/57 09/05/16 16:00 116 84/57 79/51 09/05/16 16:00 116 09/05/16 16:00 40 09/05/16 14:00 117 09/05/16 12:00 40 09/05/16 12:00 99.7 124 21 160/100 100 170/80 09/05/16 12:00 124 09/05/16 12:00 124 160/100 170/80 09/05/16 11:45 98 40 09/05/16 09/06/16 19:00 07:00 Intake Total 1070 ml 2933 ml Output Total 4150 ml 475.0 ml Balance -3080 ml 2458.0 ml Intake IV Total 881 ml 2554 ml Tube Feeding 189 ml 199 ml Other 180 ml Output Urine Total 150 ml 275 ml Tube Feeding Residual Discard 200.0 ml Hemodialysis 4000 ml # Bowel Movements 1 Exam CONSTITUTIONAL/GENERAL: This is an obese male currently intubated on mechanical ventilation. TUBES/LINES/DRAINS: ETT, OG, right IJ CVL, PIV's, Aaron catheter, SCDs, soft wrist restraints. SKIN: No jaundice, rashes, or lesions. Ecchymoses on upper extremities. No wounds seen anteriorly. Skin temperature appropriate. Not diaphoretic. HEAD: Atraumatic. Normocephalic. EYES: Pupils equal and round and reactive. No scleral icterus. No injection or drainage. ENT: Unable to evaluate hearing secondary to clinical condition. Nose without bleeding or purulent drainage. Moist oral mucosa. NECK: Trachea midline. Supple. CARDIOVASCULAR: Regular rate and rhythm without murmurs, gallops, or rubs. Pitting edema to all 4 extremities. RESPIRATORY/CHEST: Symmetric, orally intubated on mechanical ventilation. Coarse breath sounds. GASTROINTESTINAL: Abdomen obese, large, round. Positive bowel sounds. Unable to appreciate hepatomegaly secondary to body habitus. GENITOURINARY: Without palpable bladder distension. Aaron catheter in place. MUSCULOSKELETAL: Extremities without clubbing, cyanosis. Pitting edema to all 4 extremities. LYMPHATICS: No palpable cervical or supraclavicular adenopathy. NEUROLOGICAL: Briefly opening eyes to tactile stimuli. Not following commands. PSYCHIATRIC: Unable to evaluate secondary to clinical condition. . Diagnostic Tests Laboratory Laboratory Tests Test 09/03/16 09/04/16 09/04/16 09/04/16 16:40 04:15 17:50 18:40 Blood Gas Puncture Site ART LINE ART LINE ART LINE Blood Gas Patient Temperature 98.6 98.6 98.6 Blood Gas HCO3 21 mmol/L 24 mmol/L 22 mmol/L (22-26) (22-26) (22-26) Blood Gas Base Excess -3.8 mmol/L -4.6 mmol/L -4.5 mmol/L (-2-2) (-2-2) (-2-2) Blood Gas Oxygen Saturation 98 % (90-100) 89 % (90-100) 96 % (90-100) Arterial Blood pH 7.33 7.11 7.23 (7.380-7.420) (7.380-7.420) (7.380-7.420) Arterial Blood Partial 42 mmHg (38-42) 79 mmHg (38-42) 55 mmHg (38-42) Pressure CO2 Arterial Blood Partial 173 mmHg 84 mmHg 132 mmHg Pressure O2 (61-120) (61-120) (61-120) Arterial Blood Oxygen Content 12.3 Vol % 11.9 Vol % 13.0 Vol % (12.0-20.0) (12.0-20.0) (12.0-20.0) Arterial Blood 1.1 % (0-4) 1.0 % (0-4) 1.2 % (0-4) Carboxyhemoglobin Arterial Blood Methemoglobin 0.6 % (0-2) 1.2 % (0-2) 1.1 % (0-2) Blood Gas Hemoglobin 8.6 G/DL 9.4 G/DL 9.4 G/DL (12.0-16.0) (12.0-16.0) (12.0-16.0) Oxygen Delivery Device VENTILATOR VENTILATOR VENTILATOR Blood Gas Ventilator Setting PRVC24/550/0.75/+8 CPAP+5/PS+8 Blood Gas Inspired Oxygen 35 % 45 % 45 % White Blood Count 18.1 TH/MM3 (4.0-11.0) Red Blood Count 3.45 MIL/MM3 (4.50-5.90) Hemoglobin 9.6 GM/DL (13.0-17.0) Hematocrit 30.7 % (39.0-51.0) Mean Corpuscular Volume 88.9 FL (80.0-100.0) Mean Corpuscular Hemoglobin 27.7 PG (27.0-34.0) Mean Corpuscular Hemoglobin 31.2 % Concent (32.0-36.0) Red Cell Distribution Width 17.0 % (11.6-17.2) Platelet Count 198 TH/MM3 (150-450) Mean Platelet Volume 7.1 FL (7.0-11.0) Neutrophils (%) (Auto) 91.2 % (16.0-70.0) Lymphocytes (%) (Auto) 1.5 % (9.0-44.0) Monocytes (%) (Auto) 7.2 % (0.0-8.0) Eosinophils (%) (Auto) 0.0 % (0.0-4.0) Basophils (%) (Auto) 0.1 % (0.0-2.0) Neutrophils # (Auto) 16.5 TH/MM3 (1.8-7.7) Lymphocytes # (Auto) 0.3 TH/MM3 (1.0-4.8) Monocytes # (Auto) 1.3 TH/MM3 (0-0.9) Eosinophils # (Auto) 0.0 TH/MM3 (0-0.4) Basophils # (Auto) 0.0 TH/MM3 (0-0.2) CBC Comment AUTO DIFF Differential Total Cells 100 Counted Neutrophils % (Manual) 80 % (16-70) Band Neutrophils % 11 % (0-6) Lymphocytes % 1 % (9-44) Monocytes % 5 % (0-8) Neutrophils # (Manual) 17.0 TH/MM3 (1.8-7.7) Metamyelocytes 1 % (0-1) Myelocytes 2 % (0-0) Differential Comment FINAL DIFF MANUAL Platelet Estimate NORMAL (NORMAL) Platelet Morphology Comment NORMAL (NORMAL) Sodium Level 137 MEQ/L (136-145) Potassium Level 4.1 MEQ/L (3.5-5.1) Chloride Level 100 MEQ/L (98-107) Carbon Dioxide Level 26.0 MEQ/L (21.0-32.0) Anion Gap 11 MEQ/L (5-15) Blood Urea Nitrogen 45 MG/DL (7-18) Creatinine 3.24 MG/DL (0.60-1.30) Estimat Glomerular Filtration 19 ML/MIN (>89) Rate Random Glucose 136 MG/DL (74-106) Calcium Level 8.5 MG/DL (8.5-10.1) Total Bilirubin 0.7 MG/DL (0.2-1.0) Aspartate Amino Transf 180 U/L (15-37) (AST/SGOT) Alanine Aminotransferase 101 U/L (12-78) (ALT/SGPT) Alkaline Phosphatase 101 U/L (45-117) Total Protein 6.2 GM/DL (6.4-8.2) Albumin 3.5 GM/DL (3.4-5.0) Test 09/05/16 09/05/16 09/05/16 09/05/16 05:39 13:17 14:45 22:55 Blood Gas Puncture Site ART LINE ART LINE Blood Gas Patient Temperature 98.6 98.6 Blood Gas HCO3 21 mmol/L 19 mmol/L (22-26) (22-26) Blood Gas Base Excess -3.7 mmol/L -5.9 mmol/L (-2-2) (-2-2) Blood Gas Oxygen Saturation 97 % (90-100) 96 % (90-100) Arterial Blood pH 7.37 7.32 (7.380-7.420) (7.380-7.420) Arterial Blood Partial 37 mmHg (38-42) 39 mmHg (38-42) Pressure CO2 Arterial Blood Partial 154 mmHg 129 mmHg Pressure O2 (61-120) (61-120) Arterial Blood Oxygen Content 14.3 Vol % 12.8 Vol % (12.0-20.0) (12.0-20.0) Arterial Blood 1.3 % (0-4) 1.2 % (0-4) Carboxyhemoglobin Arterial Blood Methemoglobin 1.0 % (0-2) 1.3 % (0-2) Blood Gas Hemoglobin 10.2 G/DL 9.3 G/DL (12.0-16.0) (12.0-16.0) Oxygen Delivery Device VENTILATOR VENTILATOR Blood Gas Ventilator Setting PRVC/AC PRVC16/650/.85/+5 Blood Gas Inspired Oxygen 40 % 40 % Ammonia 138 MCMOL/L 122 MCMOL/L (11-32) (11-32) Test 09/06/16 03:15 White Blood Count 19.4 TH/MM3 (4.0-11.0) Red Blood Count 3.20 MIL/MM3 (4.50-5.90) Hemoglobin 9.0 GM/DL (13.0-17.0) Hematocrit 28.6 % (39.0-51.0) Mean Corpuscular Volume 89.4 FL (80.0-100.0) Mean Corpuscular Hemoglobin 28.0 PG (27.0-34.0) Mean Corpuscular Hemoglobin 31.3 % Concent (32.0-36.0) Red Cell Distribution Width 17.4 % (11.6-17.2) Platelet Count 153 TH/MM3 (150-450) Mean Platelet Volume 7.8 FL (7.0-11.0) Neutrophils (%) (Auto) 91.9 % (16.0-70.0) Lymphocytes (%) (Auto) 1.9 % (9.0-44.0) Monocytes (%) (Auto) 6.1 % (0.0-8.0) Eosinophils (%) (Auto) 0.0 % (0.0-4.0) Basophils (%) (Auto) 0.1 % (0.0-2.0) Neutrophils # (Auto) 17.9 TH/MM3 (1.8-7.7) Lymphocytes # (Auto) 0.4 TH/MM3 (1.0-4.8) Monocytes # (Auto) 1.2 TH/MM3 (0-0.9) Eosinophils # (Auto) 0.0 TH/MM3 (0-0.4) Basophils # (Auto) 0.0 TH/MM3 (0-0.2) CBC Comment AUTO DIFF Differential Comment AUTO DIFF CONFIRMED Platelet Estimate NORMAL (NORMAL) Platelet Morphology Comment NORMAL (NORMAL) Sodium Level 141 MEQ/L (136-145) Potassium Level 4.1 MEQ/L (3.5-5.1) Chloride Level 104 MEQ/L (98-107) Carbon Dioxide Level 24.7 MEQ/L (21.0-32.0) Anion Gap 12 MEQ/L (5-15) Blood Urea Nitrogen 66 MG/DL (7-18) Creatinine 3.21 MG/DL (0.60-1.30) Estimat Glomerular Filtration 19 ML/MIN (>89) Rate Random Glucose 140 MG/DL (74-106) Calcium Level 8.8 MG/DL (8.5-10.1) Magnesium Level 2.3 MG/DL (1.5-2.5) Total Bilirubin 1.0 MG/DL (0.2-1.0) Aspartate Amino Transf 298 U/L (15-37) (AST/SGOT) Alanine Aminotransferase 135 U/L (12-78) (ALT/SGPT) Alkaline Phosphatase 112 U/L (45-117) Total Protein 5.9 GM/DL (6.4-8.2) Albumin 3.6 GM/DL (3.4-5.0) Result Diagram: 09/06/165 09/06/16 0315 Imaging Last Impressions Chest X-Ray 09/06/16 0600 Signed Impressions: Service Date/Time: Tuesday, September 06, 2016 04:31 - CONCLUSION: 1. Stable elevation of right hemidiaphragm with volume loss in the right hemithorax. 2. Bibasilar atelectatic changes. 3. Stable position of life support tubes. Johnson Cisneros MD Liver Ultrasound 09/02/16 0000 Signed Impressions: Service Date/Time: Friday, September 02, 2016 11:53 - CONCLUSION: Mild ascites. Nonvisualization of flow in the portal vein. Sivakumar Brush MD FACR Lower Extremity Ultrasound 09/01/16 Signed Impressions: Service Date/Time: Thursday, September 01, 2016 16:09 - CONCLUSION: Nonocclusive thrombus in the left common femoral and greater saphenous veins. No DVT is seen on the right. Arash Chávez MD Head CT 09/01/16 Signed Impressions: Service Date/Time: Thursday, September 01, 2016 20:31 - CONCLUSION: No acute disease. Arash Chávez MD Chest CT 09/01/16 Signed Impressions: Service Date/Time: Thursday, September 01, 2016 20:35 - CONCLUSION: 1. Suspicious appearing mass in the left suprahilar region concerning for a primary lung malignancy. In addition there is very prominent adenopathy seen throughout the mediastinum and left hilar region all concerning for a neoplastic disease. 2. There are ill-defined masses seen around the kidneys bilaterally. At the time a read the CT of the abdomen I was unaware of the CT of the chest findings. The abnormality in the chest makes metastases responsible for the masses in the pararenal spaces more likely. Arash Chávez MD Abdomen/Pelvis CT 09/01/16 Signed Impressions: Service Date/Time: Thursday, September 01, 2016 20:35 - CONCLUSION: 1. Multiple retroperitoneal mass is seen around the kidneys bilaterally being more numerous and larger on the right. This appearance is quite unusual. Neoplastic processes from metastases may have this appearance but typically metastases would be seen elsewhere. Inflammatory change could have this appearance but the underlying kidneys appear grossly normal. These are of uncertain etiology. They are amenable to biopsy. 2. Focal area of thickening at the mid small bowel. An area of enteritis could have this appearance. An area of small bowel hemorrhage or infiltrating neoplasm cannot be excluded. 3. Mild ascites. 4. Avascular necrosis of the femoral head. Arash Chávez MD Renal Ultrasound 08/31/16 0000 Signed Impressions: Service Date/Time: Wednesday, August 31, 2016 23:47 - CONCLUSION: Diffuse cortical thinning of both kidneys. Scattered ascites throughout the abdomen.. Olvin Guzman MD Procedures * 09/01/16 right IJ hemodialysis catheter. * 09/01/16 -right IJ CVL * 08/31/16 -intubated and placed on mechanical ventilation . Patient/Family Conference Present at Family Conference: To separate telephone conversations with son Sivakumar Elliott and pt's sister Rhonda Elliott. Family Conference Time (mins): 58 Family Conference Location: Telephone Issues Discussed: * Palliative care role, purpose, approach * Additional medical, psychosocial, and spiritual history * Patients general health, functional status, and cognitive changes in the months leading up to the current hospitalization * family understanding of the current medical problems -multisystem organ failure * Patient/family understanding of prognosis -poor prognosis for survival and these hospitalization * Patients goals of care as best understood from advance directives and/or conversations and/or values * Current medical treatment options and benefits/burdens of those options * Likely scenarios comparing ongoing aggressive care with a transition to comfort measures only * Questions answered to the best of my ability * Palliative care contact information provided * Risks, benefits and limitations of CPR given patient's past medical history and current clinical status . Assessment and Plan Disease Oriented Problem List: (1) Respiratory failure, acute (2) Acute renal failure (3) Atrial flutter with rapid ventricular response (4) Hypotension Symptom Scale: (1) Pain 0-10 Scale: Unable to quantify Comment: Currently on fentanyl drip. (2) Shortness of breath 0-10 Scale: Unable to quantify Comment: Secondary to acute respiratory failure. Remains intubated on mechanical ventilation. (3) Debility 0-10 Scale: Unable to quantify Comment: Secondary to acute on chronic illness. Pertinent Non-Medical Issues Psychosocial: Originally from [place]. for 35 years, now . One biological son. Spiritual: [employer] rach. Legal: Pending copy of advance directives. Ethical issues impacting care: Pending copy of advance directives. . Important Contacts Sister/HCS Rhonda Elliott Sivakumar Elliott . Prognosis Mr. Elliott is a 71-year-old male with a medical history significant for O2 dependent COPD , non-small cell carcinoma status post right lobectomy, testicular cancer status post orchiectomy, diabetes mellitus type 2, hypertension, atrial fibrillation/atrial flutter on anticoagulation, CHF and EtOH use and abuse. Clinical condition complicated by multisystem organ failure , patient requiring hemodialysis, unable to wean off ventilator support. Patient's overall prognosis is poor given his multiple comorbidities, likely recurrence or metastatic cancer as per CT scans and acute events. Patient at a very high risk for further complications, continue decline and . . Code Status: Alternative Code Plan * CODE STATUS: Alternate code/intubation only at this time. Both patient's sister Rhonda Elliott (reported as HCS) and pt's only son Sivakumar Elliott in agreement with changing code status to no cardiac code. * HEALTHCARE DECISION-MAKER: Patient unable to participate in medical decision- making secondary to clinical condition, unresponsive on mechanical ventilation. Patient reported on prior admission 05/21/16 that her sister Rhonda Elliott is HCS. This has been confirmed with sister, pending copy of healthcare surrogate designation. In the meantime, palliative care recommends shared decision- making with patient's only son Sivakumar Elliott. * GOALS OF CARE: HCS/pt's sister and pt's son electing to continue current medical management at this time short of NO cardiac code/intubation only. Plan is to allow the weekend to evaluate patient's clinical condition. Family to regroup early next week for further clarifications of goals of care. Family likely to transition patient to comfort-directed care/withdrawal life support early next week should his clinical condition continues to worsen. Family verbalized NO trach and NO peg at this time. * SYMPTOMS: = Pain, secondary to acute illness, intubation, mechanical ventilation, etc. Currently on fentanyl drip. Appears comfortable. = Shortness of breath, remains intubated on mechanical ventilation. CO2 retention on CPAP trial yesterday. Not improving. = Debility: Secondary to acute on chronic illness. Patient disabled prior to this hospitalization. Requiring a walker/wheelchair. Likely to worsen. * Case has been discussed in great detail with Dr. Navarro and bedside RN Chrissy. * Palliative care contact information has been provided to family. * Ongoing emotional support and active listening provided to family. * Palliative care will continue to follow-up for further clarifications of goals of care as patient's clinical condition continues to evolve. . Time Spent Total Floor Time (mins): 105 (Total time to include review and summarization of available medical records to include prior hospitalizations, physical exam, 2 separate telephone conversation with patient's family, case discussion with Dr. Navarro and bedside RN.) >50% Counseling/Coord of Care: Yes Thank you for the opportunity to participate in the care of Mr. Elliott. Attestation To help prompt me to consider important information that might be impacting today's encounter and assessment, information from prior notes written by myself or my colleagues may have been "brought forward" into today's note. My signature on this note, however, is an attestation that I personally performed the exam, history, and/or decision-making noted today, and, unless otherwise indicated, the interactions with patient, family, and staff as well as the review of records all occurred today. I also attest that the listed assessment and stated plan reflect my best clinical judgment today based on the combination of historical information, prior notes, and today's exam/ interactions. When time spent is documented, it refers only to time spent today by the signer, or if indicated, combined time spent today by collaborating physician/nurse practitioner. Sangita Mcfarland Sep 06, 2016 11:23
--- NOTE | 2016-09-06 17:47 | HHI.PR ---
Subjective Remarks 71 YOWM with VDRF,Ac Renal failure On Neosyn had HD No fever on sedation due to agitation Palliative care consulted Family coming from [place] Objective Vital Signs Vital Signs Date Time Temp Pulse Resp B/P Pulse Ox O2 Delivery O2 Flow Rate FiO2 09/06/16 16:12 99 40 09/06/16 16:00 114 09/06/16 16:00 98.7 114 16 88/54 98 92/57 09/06/16 16:00 45 09/06/16 16:00 114 92/57 09/06/16 14:00 110 09/06/16 12:15 98 40 09/06/16 12:00 97.4 137 16 98/65 99 92/62 09/06/16 12:00 70 09/06/16 12:00 45 09/06/16 12:00 122 92/62 09/06/16 10:00 96 09/06/16 08:00 45 09/06/16 08:00 97.1 98 16 97/63 98 88/53 09/06/16 08:00 122 09/06/16 08:00 122 88/53 09/06/16 07:28 97 40 09/06/16 06:00 100 09/06/16 05:15 40 09/06/16 04:06 100 40 09/06/16 04:00 98.2 99 16 110/67 98 110/66 09/06/16 04:00 45 09/06/16 04:00 99 09/06/16 04:00 99 110/66 09/06/16 02:00 104 09/06/16 01:53 99 50 09/06/16 01:00 50 09/06/16 00:00 98.0 129 16 93/61 97 09/06/16 00:00 129 09/06/16 00:00 129 90/55 Arterial Line 09/06/16 00:00 40 09/05/16 22:00 120 09/05/16 20:00 117 114/69 79/51 09/05/16 20:00 117 09/05/16 20:00 40 09/05/16 20:00 97.7 117 17 117/70 98 114/69 09/05/16 19:55 98 40 09/05/16 18:00 116 I/O 7/6/17 7/08/1709/05/16 09/06/16 09/06/16 09/06/16 07:00 15:00 23:00 07:00 15:00 23:00 Intake Total 1379 ml 1070 ml 1757 ml 1176 ml 1924 ml Output Total 200 ml 4150 ml 350.0 ml 125 ml 100 ml Balance 1179 ml -3080 ml 1407.0 ml 1051 ml 1824 ml Intake IV Total 1214 ml 881 ml 1574 ml 980 ml 1672 ml Tube Feeding 165 ml 189 ml 63 ml 136 ml 192 ml Other 120 ml 60 ml 60 ml Output Urine Total 200 ml 150 ml 150 ml 125 ml 100 ml Tube Feeding Residual Discard 200.0 ml Hemodialysis 4000 ml # Bowel Movements 1 0 1 Result Diagram: 09/06/1631409/06/16314 Objective Remarks GENERAL: WBWN WM, on vent, sedated SKIN: Warm and dry. HEAD: Normocephalic. EYES: No scleral icterus. No injection or drainage. NECK: Supple, trachea midline. No JVD or lymphadenopathy. CARDIOVASCULAR: Regular rate and rhythm without murmurs, gallops, or rubs. RESPIRATORY: Breath sounds equal bilaterally. No accessory muscle use. GASTROINTESTINAL: Abdomen soft, non-tender, nondistended. MUSCULOSKELETAL: No cyanosis, or edema. BACK: Nontender without obvious deformity. No CVA tenderness. A/P Assessment and Plan VDRF Acute renal failure Hypotension AF PLAN: Cont vent support Neosyn to support BP HD Cont Abx wean vent as tolerated Diprivan for sedation Amrit Garcia MD Sep 06, 2016 17:47
[2016-09-07] VITALS (19 sets, daily range): BP systolic 87–118; BP diastolic 42–65; PULSE 115–128; RESP 13–16; TEMP 97.6–97.9; O2SAT 97–100
[2016-09-07] MEDS: PROPOFOL 1000 MG/100 ML INJ 100 ML IV SCH ×4 (01:20→18:12)
[2016-09-07] MEDS: SODIUM CHLOR 0.9% 1000 ML INJ 1,000 ML IV SCH (01:21)
[2016-09-07] MEDS: CHLORHEXIDINE GLUCONATE 2 % 1 PACK (2 CLOTHS) TOP SCH (03:18)
[2016-09-07] MEDS: metroNIDAZOLE 500 MG INJ 100 ML IV SCH ×4 (03:18→21:00)
[2016-09-07] MEDS: INSULIN ASPART SUPPLEMENTAL SCALE SQ SCH ×4 (04:00→16:00)
[2016-09-07 04:28] LABS: AUTOMATED NEUTROPHIL # 19.4 TH/MM3 (1.8-7.7); BASOPHIL % 0.1 % (0.0-2.0); LYMPH % 1.6 % (9.0-44.0); LYMPHOCYTE # 0.3 TH/MM3 (1.0-4.8); MEAN CELL VOLUME 90.5 FL (80.0-100.0); MEAN CORPUSCULAR HEMOGLOBIN 28.2 PG (27.0-34.0); MEAN CORPUSCULAR HGB CONC 31.2 % (32.0-36.0); NEUT % 90.3 % (16.0-70.0); PLATELET COUNT 173 TH/MM3 (150-450); RED BLOOD COUNT 3.31 MIL/MM3 (4.50-5.90); RED CELL DISTRIBUTION WIDTH 17.1 % (11.6-17.2); WHITE BLOOD COUNT 21.5 TH/MM3 (4.0-11.0)
[2016-09-07 04:38] LABS: HEMO FLAGS AUTO DIFF
[2016-09-07 04:59] LABS: ALKALINE PHOSPHATASE 127 U/L (45-117); ALT (GPT) 179 U/L (12-78); ANION GAP 12 MEQ/L (5-15); AST (GOT) 335 U/L (15-37); BICARBONATE 24.1 MEQ/L (21.0-32.0); BLOOD UREA NITROGEN 80 MG/DL (7-18); CHLORIDE 105 MEQ/L (98-107); GLOMERULAR FILTRATION RATE 16 ML/MIN (>89); POTASSIUM 4.8 MEQ/L (3.5-5.1); SODIUM (NA) 141 MEQ/L (136-145)
[2016-09-07] MEDS: LACTULOSE SYRUP 20 GM/30 ML CUP PO SCH ×4 (05:00→16:55)
--- NOTE | 2016-09-07 05:23 | RADRPT ---
EXAM DATE/TIME: 09/07/2016 03:57 [facility] COMPARISON: CHEST SINGLE AP, September 06, 2016, 4:31. INDICATIONS : Shortness of breath, possible pulmonary disease. MEDICAL HISTORY : Chronic obstructive pulmonary disease. Hypertension Carcinoma, testicular. Hep C CHF SURGICAL HISTORY : Lobectomy. Liver resection Orchiectomy ENCOUNTER: Subsequent ACUITY: 1 week PAIN SCORE: Non-responsive. LOCATION: Bilateral chest FINDINGS: A single view of the chest demonstrates elevation of right hemidiaphragm which appears less prominent when compared to the prior. Thus appears to be some resolving atelectatic changes in the bases. Life support tubes are remain stable in position including an endotracheal tube which is appropriately po sitioned above the antoinette. Heart size is upper limits of normal. CONCLUSION: 1. Improving bibasilar atelectatic changes. 2. There is some elevation of the right hemidiaphragm but this appears to be less prominent when comp ared to the prior. 3. Stable position of life support tubes. Johnson Cisneros MD on September 07, 2016 at 5:20 Board Certified Radiologist. This report was verified electronically.
[2016-09-07 05:24] LABS: BANDS 2 % (0-6); CORRECTED NUCLEATED RBC 2 /100 WBC (0-0); METAMYELOCYTES 1 % (0-1); NEUTROPHIL # MANUAL DIFF 20.6 TH/MM3 (1.8-7.7); POLYS (SEG NEUTROPHILS) 93 % (16-70); WBC DIFF SAMPLE 100
[2016-09-07 05:26] LABS: PLATELET ESTIMATE SMEAR NORMAL (NORMAL); PLATELET MORPHOLOGY NORMAL (NORMAL); SCAN/DIFF FINAL DIFF MANUAL
[2016-09-07] MEDS: HYDROCORTISONE SOD SUCCINATE 100 MG VIAL IV PUSH SCH ×2 (05:47→14:00)
[2016-09-07] MEDS: ARTIFICIAL TEARS OPTH SOLN 15 ML BTL EACH EYE SCH ×3 (08:14→17:01)
[2016-09-07] MEDS: CHLORHEXIDINE 0.12% (ORAL KIT) 15 ML CUP MT SCH ×2 (08:15→20:00)
[2016-09-07] MEDS: RESP: BUDESONIDE 0.5 MG/2 ML NEB NEB SCH ×2 (08:46→19:35)
[2016-09-07] MEDS: ALBUMIN HUMAN 25% 25 GM/100 ML BAGP IV PRN (08:54)
[2016-09-07] MEDS: HEPARIN SODIUM - IV 10,000 UNITS/10 ML VIAL PRN (08:55)
[2016-09-07] MEDS: GENTAMICIN SULFATE (DIALYSIS USE ONLY) 20 MG/2 ML VIAL IV PRN (08:55)
[2016-09-07] MEDS: REMOVE OLD PATCH-NICOTINE T-DERMAL SCH (09:00)
[2016-09-07] MEDS: PHENYLEPHRINE INJ 160 MG in DEXTROSE 5% IN WATE 500 ML INJ 484 ML IV SCH ×2 (09:05)
--- NOTE | 2016-09-07 10:25 | HHI.NPPN ---
Subjective History of Present Illness 71-year-old with acute renal failure, atrial fibrillation Interval History Patient was seen during dialysis. On 2K, UF goal is 4 liters. BFR is 300 ml/ min. Patient is intubated. Abdomen is distended. Objective Data Data 09/06/16 09/07/16 19:00 07:00 Intake Total 1924 ml 2590 ml Output Total 100 ml 200.0 ml Balance 1824 ml 2390.0 ml Intake IV Total 1672 ml 2152 ml Tube Feeding 192 ml 318 ml Other 60 ml 120 ml Output Urine Total 100 ml 100 ml Tube Feeding Residual Discard 100.0 ml # Bowel Movements 1 0 Vital Signs Date Time Temp Pulse Resp B/P Pulse Ox O2 Delivery O2 Flow Rate FiO2 09/07/16 08:47 100 40 09/07/16 06:00 120 09/07/16 04:00 97.6 119 16 91/55 100 87/47 09/07/16 04:00 119 87/47 09/07/16 04:00 40 09/07/16 04:00 119 09/07/16 03:22 100 40 09/07/16 02:00 115 09/07/16 01:14 100 40 09/07/16 00:00 97.8 115 16 92/60 100 94/55 09/07/16 00:00 115 09/07/16 00:00 115 94/55 09/07/16 00:00 40 09/06/16 22:00 117 09/06/16 21:35 100 40 09/06/16 20:00 40 09/06/16 20:00 97.0 117 16 85/53 100 92/56 09/06/16 20:00 117 09/06/16 20:00 117 92/56 09/06/16 18:00 116 09/06/16 16:12 99 40 09/06/16 16:00 114 09/06/16 16:00 98.7 114 16 88/54 98 92/57 09/06/16 16:00 45 09/06/16 16:00 114 92/09/06/16 14:00 110 09/06/16 12:15 98 40 09/06/16 12:00 97.4 137 16 98/65 99 92/62 09/06/16 12:00 70 09/06/16 12:00 45 09/06/16 12:00 122 92/62 -: 09/07/16 0320 09/07/16 0320 Physical Exam General Appearance: Well Developed Neck Neck Exam: Neck Supple Pulmonary Resp Exam: Decreased Bases Cardiology CV Exam: Arrhythmia Gastrointestinal/Abdomen GI Exam: Distended GI Remarks firm Extremeties Extremities Exam: Moderate Edema, Dependent Edema Assessment/Plan Problem List: (1) Acute renal failure Plan: Dialysis today as above. Continue to monitor for signs of renal recovery. Avoid nephrotoxic agents. Stop IVF. (2) Atrial flutter with rapid ventricular response Plan: Stable EF of 70% (3) Congestive heart failure Plan: Continue to monitor (4) COPD with exacerbation Plan: on Vent Howard Ochoa MD Sep 07, 2016 10:25
[2016-09-07] MEDS: THIAMINE INJ 100 MG in SODIUM CHLORIDE 0.9% INJ 100 ML IV SCH (11:38)
[2016-09-07] MEDS: ASPIRIN 81 MG CHEW TAB CHEW SCH (11:38)
[2016-09-07] MEDS: MULTIVITAMINS/MINERALS THERAPEUTIC TAB OG-TUBE SCH (11:39)
[2016-09-07] MEDS: busPIRone HCL 5 MG TAB PO SCH ×3 (11:39→17:00)
[2016-09-07] MEDS: PANTOPRAZOLE SODIUM 40 MG VIAL IV SCH (11:39)
[2016-09-07] MEDS: FOLIC ACID 1 MG TAB OG-TUBE SCH (11:39)
[2016-09-07] MEDS: NICOTINE 21 MG/24 HR PATCH T-DERMAL SCH (11:39)
[2016-09-07] MEDS: SEVELAMER CARBONATE 800 MG TAB PO SCH ×3 (11:39→17:00)
[2016-09-07] MEDS: SODIUM CHLORIDE 0.9% FLUSH 10 ML FLUSH IVF SCH (11:40)
[2016-09-07] MEDS: SODIUM CHLORIDE 0.9% FLUSH 10 ML FLUSH IV FLUSH SCH ×2 (11:40→21:00)
[2016-09-07] MEDS: DOCUSATE SODIUM 50 MG/SENNA 8.6 MG TAB PO SCH (11:40)
[2016-09-07] MEDS: AZITHROMYCIN INJ 500 MG in SODIUM CHLOR 0.9% 250 ML INJ 250 ML IV SCH (11:43)
[2016-09-07] MEDS: VASOPRESSIN INJ 40 UNITS in DEXTROSE 5% IN WATER 100ML INJ 98 ML IV SCH ×2 (12:39)
--- NOTE | 2016-09-07 15:27 | HHI.PR ---
Subjective Remarks Remains critical ,On Multiple pressors. Sedated and on Vent support PC/AC , FIO2 40 % Objective Vital Signs Date Time Temp Pulse Resp B/P Pulse Ox O2 Delivery O2 Flow Rate FiO2 09/07/16 14:00 121 09/07/16 12:17 98 40 09/07/16 12:00 97.7 123 16 118/65 98 111/60 09/07/16 12:00 123 09/07/16 12:00 123 118/65 111/60 09/07/16 12:00 40 09/07/16 10:00 124 09/07/16 08:47 100 40 09/07/16 08:00 97.8 116 13 106/65 100 99/56 09/07/16 08:00 116 09/07/16 08:00 116 106/65 99/56 09/07/16 08:00 40 09/07/16 06:00 120 09/07/16 04:00 97.6 119 16 91/55 100 87/47 09/07/16 04:00 119 87/47 09/07/16 04:00 40 09/07/16 04:00 119 09/07/16 03:22 100 40 09/07/16 02:00 115 09/07/16 01:14 100 40 09/07/16 00:00 97.8 115 16 92/60 100 94/55 09/07/16 00:00 115 09/07/16 00:00 115 94/55 09/07/16 00:00 40 09/06/16 22:00 117 09/06/16 21:35 100 40 09/06/16 20:00 40 09/06/16 20:00 97.0 117 16 85/53 100 92/56 09/06/16 20:00 117 09/06/16 20:00 117 92/56 09/06/16 18:00 116 09/06/16 16:12 99 40 09/06/16 16:00 114 09/06/16 16:00 98.7 114 16 88/54 98 92/57 09/06/16 16:00 45 09/06/16 16:00 114 92/57 I/O 09/06/16 09/06/16 09/06/16 09/07/16 09/07/16 09/07/16 07:00 15:00 23:00 07:00 15:00 23:00 Intake Total 1176 ml 1924 ml 1513 ml 1077 ml 1915 ml Output Total 125 ml 100 ml 175.0 ml 25 ml 4000 ml Balance 1051 ml 1824 ml 1338.0 ml 1052 ml -2085 ml Intake IV Total 980 ml 1672 ml 1284 ml 868 ml 1515 ml Tube Feeding 136 ml 192 ml 169 ml 149 ml 300 ml Tube Irrigant 100 ml Other 60 ml 60 ml 60 ml 60 ml Output Urine Total 125 ml 100 ml 75 ml 25 ml 0 ml Tube Feeding Residual Discard 100.0 ml Hemodialysis 4000 ml # Bowel Movements 0 1 0 0 0 Result Diagram: 09/07/1631909/07/16319 Objective Remarks GENERAL: A well-built, well-nourished male, sedated on the ventilator. HEENT EXAMINATION: Pupils are equal and reactive to light. Oral mucosa and nasal mucosa normal. NECK: Supple. JVP not raised. Chest: Equal bilaterally. Bilateral wheeze. CV: S1 and S2 normal.No Murmur ABDOMEN: Soft, nondistended. Bowel sounds are present. EXTREMITIES: No edema. Col and dry. Neuro : sedated Medications and IVs IMPRESSION 1. Respiratory failure.Ventilator dependant 2. Acute renal failure. 3. Atrial fibrillation. 4. Hypokalemia. 5. Hypotension/Sepsis Plan : 1. Cont Vent support and wean FIO2 . 2. Wean Pressors,Epi/Levophed 3. Nebs q6h, Duoneb 4. Antibiotics as ordered. 5. CBC,BMP in am. 6. Dialysis as planned . 7. Palliative care to discuss further plans with son. Erwin Willson MD Sep 07, 2016 15:27
[2016-09-07] MEDS: fentaNYL DRIP 250 ML IV SCH (15:39)
--- NOTE | 2016-09-07 16:39 | HHI.CCPN ---
Subjective Remarks/Hospital Course Unable to obtain history from patient as he was intubated in the ED prior to admission. I attempted to call Jesse Veliz who is a friend listed as his next of kin contact but there was no answer. History obtained from EMR and discussion with Dr. Villavicencio. 71-year-old male with past medical history of COPD on home O2, hypertension, diabetes, history of paroxysmal atrial flutter on chronic anticoagulation with Eliquis, testicular cancer, hepatitis C, alcohol abuse who presented to [facility] emergency department via [facility] with severe respiratory distress. He indicated to the ED physician that he been feeling poorly for 2 days and had had a subjective fever. Reportedly sats were 94% at the scene. He was given albuterol treatment. C Pap was attempted but he was unable to tolerate. He was given Lasix 100 mg IV because he carried a history of CHF. He was severely dyspneic on arrival and was intubated for impending respiratory failure. He was in A. fib RVR with rate in the 120s. He has been administered Cardizem 20 mg IV total. Heart rate remains in the 120s. He received Duoneb x2 and Solumedrol 125 mg IV. He is in acute renal failure and acute hypercapnic respiratory failure Subjective 09/01: Patient hypotensive overnight requiring placement of central line for vasopressor support. Essentially anuric since 2 AM. Arousable and does follow commands on the ventilator. Potassium remains elevated and he received Kayexalate and sodium bicarbonate pushes overnight along with D50/insulin. Recheck at 10 AM. No peak T waves on monitor. 09/02 Patient is sedated with Diprivan, Fentanyl and intubated. Afebrile. On Neosyn 110mics, Vasopressin and Cardizem 5mg/hr. HD initiated yesterday with removal 1.5L. 09/03 Patient remains intubated and sedated with Diprivan and Fentanyl. Off Vasopressin, Neosyn down to 60 mics from 110. Renal function is improving with Cr: 3.99 from 4.39 09/04: Patient intubated, sedated, gets very agitated on sedation lowering. Remains on Ranjeet-Synephrine at 60 mcg/m. I'll start Precedex to facilitate ventilator weaning. WBC count worsening 09/05: Continues to remain severely encephalopathy. On sedation on lightening shows 100 and agonal breathing on the ventilator. Profoundly acidemic with CO2 retention on CPAP trial yesterday. No improvement in mental status. Requiring Ranjeet-Synephrine on and off 09/06 Patient is sedated with Diprivan, Fentanyl and intubated. On Neosyn 30 mics , s/p HD yesterday with removal 4L. Afebrile. 09/07: Remains encephalopathic, became hypotensive while getting HD and Ranjeet- synephrine was increased to 300 mcg/min to keep MAP> 65, Code status DNR now Objective Vital Signs Date Time Temp Pulse Resp B/P Pulse Ox O2 Delivery O2 Flow Rate FiO2 09/07/16 15:31 97 40 09/07/16 14:00 121 09/07/16 12:00 97.7 16 118/65 111/60 Intake and Output 09/06/16 09/06/16 09/07/16 08:00 16:00 00:00 Intake Total 1176 ml 1924 ml 1513 ml Output Total 125 ml 100 ml 175.0 ml Balance 1051 ml 1824 ml 1338.0 ml Result Diagram: 09/07/16 0320 09/07/16 0320 Imaging Last Impressions Chest X-Ray 09/06/16 0600 Signed Impressions: Service Date/Time: Tuesday, September 06, 2016 04:31 - CONCLUSION: 1. Stable elevation of right hemidiaphragm with volume loss in the right hemithorax. 2. Bibasilar atelectatic changes. 3. Stable position of life support tubes. Johnson Cisneros MD Liver Ultrasound 09/02/16 0000 Signed Impressions: Service Date/Time: Friday, September 02, 2016 11:53 - CONCLUSION: Mild ascites. Nonvisualization of flow in the portal vein. Sivakumar Brush MD FACR Lower Extremity Ultrasound 09/01/16 0000 Signed Impressions: Service Date/Time: Thursday, September 01, 2016 16:09 - CONCLUSION: Nonocclusive thrombus in the left common femoral and greater saphenous veins. No DVT is seen on the right. Arash Chávez MD Head CT 09/01/16 0000 Signed Impressions: Service Date/Time: Thursday, September 01, 2016 20:31 - CONCLUSION: No acute disease. Arash Chávez MD Chest CT 09/01/16 Signed Impressions: Service Date/Time: Thursday, September 01, 2016 20:35 - CONCLUSION: 1. Suspicious appearing mass in the left suprahilar region concerning for a primary lung malignancy. In addition there is very prominent adenopathy seen throughout the mediastinum and left hilar region all concerning for a neoplastic disease. 2. There are ill-defined masses seen around the kidneys bilaterally. At the time a read the CT of the abdomen I was unaware of the CT of the chest findings. The abnormality in the chest makes metastases responsible for the masses in the pararenal spaces more likely. Arash Chávez MD Abdomen/Pelvis CT 09/01/16 Signed Impressions: Service Date/Time: Thursday, September 01, 2016 20:35 - CONCLUSION: 1. Multiple retroperitoneal mass is seen around the kidneys bilaterally being more numerous and larger on the right. This appearance is quite unusual. Neoplastic processes from metastases may have this appearance but typically metastases would be seen elsewhere. Inflammatory change could have this appearance but the underlying kidneys appear grossly normal. These are of uncertain etiology. They are amenable to biopsy. 2. Focal area of thickening at the mid small bowel. An area of enteritis could have this appearance. An area of small bowel hemorrhage or infiltrating neoplasm cannot be excluded. 3. Mild ascites. 4. Avascular necrosis of the femoral head. Arash Chávez MD Renal Ultrasound 08/31/16 Signed Impressions: Service Date/Time: Wednesday, August 31, 2016 23:47 - CONCLUSION: Diffuse cortical thinning of both kidneys. Scattered ascites throughout the abdomen.. Olvin Guzman MD Objective Remarks GENERAL: 71-year-old male resting in bed sedated on the ventilator, on maximum dose neosynephrine SKIN: Warm, dry, with no rash HEAD: Atraumatic. Normocephalic. EYES: Pupils equally round and reactive. No scleral icterus. No injection or drainage. ENT: No nasal bleeding or discharge. Mucous membranes pink and moist. Oropharynx currently orotracheally intubated. OG tube in place NECK: Trachea midline. No JVD appreciated. Obese. Right IJ CVL clean dry and intact CARDIOVASCULAR: Heart sounds due to body habitus. Sinus tachycardia. S1, S2. No S4. No murmurs, clicks, gallops or rubs appreciated. On maximum dose Ranjeet- Synephrine RESPIRATORY: Very distant breath sounds with poor air movement bilaterally. Positive expiratory wheeze GASTROINTESTINAL: Abdomen protuberant, soft, with some mild distension, no tenderness, no rebound or guarding. Bowel sounds present MUSCULOSKELETAL: Extremities without clubbing, cyanosis. There is 1 + pitting pretibial edema. Bilateral anterior tibial scarring/hold NEUROLOGICAL: Intubated, sedated. On sedation hold shows agonal breathing. Spontaneously opens eyes, do not follow commands Date of Insertion: Sep 01, 2016 Line: Central Venous Catheter Side: Right Location: Internal, Jugular A/P Assessment and Plan NEURO/PSYCH: Severe metabolic encephalopathy Hepatic encephalopathy EtOH abuse/dependence - 6-8 drinks of hard liquor daily History of migraine headache On Diprivan and Fentanyl infusion for sedation and vent synchrony. Daily sedation vacation as beau, shows agonal breathing on sedation hold Goal of RASS -2. Continue BuSpar 5 tid for anxiety disorder Monitor for signs and symptoms of alcohol withdrawal/protocol initiated Thiamine 100 mg daily/folic acid 1 mg daily/multivitamin 1 tablet daily for EtOH abuse Ammonia level 166 last 09/06/16 recheck level am, on lactulose 30ml Q6, add Xifaxan RESP: Acute hypercapnic respiratory failure Acute COPD exacerbation MAGO - not on CPAP Tobacco abuse/ongoing one half pack per day PRVC 16/tidal volume around 650/0.85/5/40- not tolerating SBT, continues to fail Ventilator bundle. DuoNeb every 4 hours. Albuterol every 2 hours as needed for wheezing. On Solucortef 100mg IV Q8. Pulmicort one inhalation twice a day 09/01 CT chest: Suspicious appearing mass in the left suprahilar region concerning for a primary lung malignancy. Prominent adenopathy seen throughout the mediastinum and left hilar region all concerning for a neoplastic disease. There are ill-defined masses seen around the kidneys bilaterally Pulm Dr. Garcia. No intervention at this time re left suprahilar mass per pulm. CV: Shock History of Hypertension Paroxysmal atrial fibrillation with RVR Chronic diastolic heart failure with preserved EF Ranjeet-Synephrine increased to maximum dose of 300 mcg/m for severe hypotension and shock Amiodarone on hold for elevated LFT Echo showed EF 65%-70%, technically difficult study. Holding lisinopril 10 mg by mouth daily in light of acute kidney injury GI: History of hepatitis C unknown treatment status GERD Elevated LFT's Continue tube feeds- Nepro with goal rate 40ml/hr US liver: Mild ascites. Nonvisualization of flow in the portal vein. Hyperammonemia. On lactulose and Xifaxan. GI consult Protonix for GI prophylaxis Lizz-Colace for bowel regimen Monitor LFT's FEN/RENAL: Acute kidney injury - baseline creatinine around 0.9 07/17 Renal ultrasound revealed diffuse cortical thickening without hydronephrosis. Monitor renal function, I/O's, avoid nephrotoxins. s/p HD 09/07 with 4L removed ID: Continue with ABX ( Cefepime, Zithromax, Flagyl) monitor for signs of infections ( Fever, WBC) Nasal aspirate negative for Influenza on 09/01 BC from 08/31: NGTD Sputum, urine cx: 08/31: NGTD HEME/ONC: History of non-small cell carcinoma status post right lower lobe lobectomy History of testicular cancer status post right orchiectomy Suspicious appearing mass in the left suprahilar region concerning for a primary lung malignancy. Leukocytosis Normocytic anemia NOAC use Monitor CBC daily. Follow trends Coags within normal limits. Bronch/biopsy only if there is clinical improvement ENDO: DM Low-dose insulin sliding scale every 4 hours TSH: 2.77 Access - Right IJ CVL placed 09/01 Prophylaxis - GI - Protonix - DVT - SCD. Palliative care is consulted to asses with goals of care, now patient is ALT CODE, intubation only CCT 40 mins Patient remains critically ill now with worsening encephalopathy, and worsening shock currently on maximum dose of Ranjeet-Synephrine. His ammonia level keep increasing now 166. Additional medications added with Xifaxan. GI consulted for Probable probable portal vein thrombosis. Prognosis guarded Dixon Antoine MD Sep 07, 2016 16:39
[2016-09-07] MEDS: CALCIUM ACETATE 667 MG CAP PO SCH (17:40)
--- NOTE | 2016-09-07 19:33 | MB ---
cc: ALEJANDRA LU M.D. DATE OF CONSULTATION 09/07/[address] Antoine REASON FOR CONSULTATION Possible portal vein thrombosis. HISTORY OF THE PRESENT ILLNESS Mr. Elliott is a 71-year-old gentleman with history of COPD, oxygen dependent, admitted to the hospital after he was found unresponsive. He was intubated and he remains intubated since his admission. According to the note he was feeling poorly two days prior to his admission and he had fever. He does have a history of hepatitis C and alcohol abuse, testicular cancer. Ultrasound showed nonvisualization of flow in the portal vein, mild ascites, concern for possible thrombosis. GI consultation was requested for this. At this time the patient is unable to give me any kind of information. He sedated on vent. Information is obtained from the chart. PAST MEDICAL HISTORY 1. COPD on home oxygen. 2. Hypertension. 3. Diabetes. 4. Paroxysmal atrial flutter, chronic anticoagulation with Eliquis. 5. Hepatitis C. 6. Testicular cancer. 7. Alcohol abuse. PAST SURGICAL HISTORY Information not available at this time, obtained from the old records. Part of the liver removed. Missing a right testicle. Right hand surgery. There is a questionable history of liver cancer according to the chart. He had also cancer of the testicle and lung according to the chart. Had right lobe of the lung removed. ALLERGIES No known allergies. SOCIAL HISTORY He drinks 6 to 8 bourbons a day. Smokes 1/2 pack of cigarettes daily. No history of drug use. FAMILY HISTORY Information not available. MEDICATIONS In the hospital: 1. Rifaximine. 2. PhosLo. 3. Lactulose. 4. Senokot. 5. Artifical Tears. 6. Cefepime. 7. Zofran. 8. Milk of Magnesia. 9. Metronidazole. 10. Solu-Cortef. 11. Clonidine. 12. Albumin. 13. Gentamicin. 14. Tylenol. 15. Benadryl. 16. Buspar. 17. Thiamine. 18. Protonix. 19. Pulmicort. REVIEW OF SYSTEMS Unfortunately can not be performed, the patient is sedated and intubated. PHYSICAL EXAMINATION GENERAL: On clinical exam he is sitting in bed in no acute distress. Intubated, unresponsive. VITAL SIGNS: Respirations 16, heart rate 123, blood pressure 96/61. HEENT: Pupils equal, round, reactive to light and accommodation. NECK: No JVD. No lymphadenopathy. CHEST: Decreased air entry in both lungs. ABDOMEN: Distended. Bowel sounds are present but diminished. EXTREMITIES: No pedal edema. 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 LABORATORY DATA Hemoglobin 9.3, white count 21.5, platelets 173. PT/INR 12.9 and 1.2. BUN 80, creatinine 3.8, AST 335, ALT 179, ammonia 127. IMAGING STUDIES The patient had ultrasound of the liver. ___ CT abdomen and pelvis showed multiple retroperitoneal masses around the kidney bilateral, being more numerous and larger on the right, unusual appearance. Neoplastic process from metastasis may have similar appearance. Inflammatory changes could have this appearance but the underlying kidney appears normal, uncertain etiology. These are amenable to biopsy. Focal area of thickening in the mid small intestine. Possible enteritis versus hemorrhage versus infiltrating neoplasm. Mild ascites. Avascular necrosis of the femoral head. IMPRESSION Mr. Elliott is an unfortunate 71-year-old gentleman with multiple medical problems admitted to the hospital for respiratory failure. Ultrasound showed possible portal vein thrombosis initially. There was a history of hepatitis C ___ serology showed negative hepatitis C antibodies and viral load even though that was in the patient history. There is definitely history of alcohol use. RECOMMENDATIONS May give Lovenox twice a day. Currently the patient on heparin every 8 hours. Supportive care. Consider consultation with palliative care. Consider biopsy of intraabdominal masses descried on the CT. Will continue to follow the patient along with you. Alejandra Lu MD BSB/EO /7:01 PM /7:09 PM
[2016-09-07] MEDS: RIFAXIMIN 550 MG TAB PO SCH (21:00)
[2016-09-08] VITALS (23 sets, daily range): BP systolic 85–119; BP diastolic 40–74; PULSE 121–137; RESP 8–21; TEMP 97.4–98.4; O2SAT 95–100
[2016-09-08] MEDS: INSULIN ASPART SUPPLEMENTAL SCALE SQ SCH ×6 (04:00→20:00)
[2016-09-08 05:14] LABS: ANION GAP 15 MEQ/L (5-15); AST (GOT) 454 U/L (15-37); BICARBONATE 20.7 MEQ/L (21.0-32.0); BLOOD UREA NITROGEN 76 MG/DL (7-18); CHLORIDE 101 MEQ/L (98-107); GLOMERULAR FILTRATION RATE 16 ML/MIN (>89); POTASSIUM 4.3 MEQ/L (3.5-5.1); SODIUM (NA) 137 MEQ/L (136-145)
[2016-09-08 05:15] LABS: ALT (GPT) 247 U/L (12-78)
[2016-09-08 05:17] LABS: ALKALINE PHOSPHATASE 168 U/L (45-117); TOTAL BILIRUBIN ADULT 1.8 MG/DL (0.2-1.0)
--- NOTE | 2016-09-08 05:38 | RADRPT ---
EXAM DATE/TIME: 09/08/2016 04:35 [facility] COMPARISON: CHEST SINGLE AP, September 07, 2016, 3:57. INDICATIONS : Shortness of breath, possible pulmonary disease. MEDICAL HISTORY : Chronic obstructive pulmonary disease. Hypertension Carcinoma, testicular. Hep C CHF SURGICAL HISTORY : Lobectomy. Orchiectomy Liver resection ENCOUNTER: Subsequent ACUITY: 1 week PAIN SCORE: Non-responsive. LOCATION: Bilateral chest FINDINGS: A single view of the chest demonstrates clear lungs with the exception of minimal bibasilar subsegmen jayleen atelectasis. Slight elevation right hemidiaphragm. Endotracheal tube, nasogastric tube and right jugular line are stable in position. Osseous structures are intact. CONCLUSION: Minimal bibasilar subsegmental atelectasis. Cale Zepeda MD on September 08, 2016 at 5:35 Board Certified Radiologist. This report was verified electronically.
[2016-09-08] MEDS: LACTULOSE SYRUP 20 GM/30 ML CUP PO SCH ×5 (06:12→23:18)
[2016-09-08] MEDS: HYDROCORTISONE SOD SUCCINATE 100 MG VIAL IV PUSH SCH ×4 (06:12→23:17)
[2016-09-08] MEDS: metroNIDAZOLE 500 MG INJ 100 ML IV SCH ×4 (06:14→23:17)
[2016-09-08] MEDS: PHENYLEPHRINE INJ 160 MG in DEXTROSE 5% IN WATE 500 ML INJ 484 ML IV SCH ×2 (06:17)
[2016-09-08] MEDS: RESP: BUDESONIDE 0.5 MG/2 ML NEB NEB SCH ×2 (08:02→20:28)
[2016-09-08] MEDS: RESP: ALBUTEROL 2.5 MG/3 ML NEB (PRN) NEB (08:03)
[2016-09-08] MEDS: fentaNYL DRIP 250 ML IV SCH (08:09)
[2016-09-08] MEDS: CALCIUM ACETATE 667 MG CAP PO SCH ×3 (08:10→17:05)
[2016-09-08] MEDS: DOCUSATE SODIUM 50 MG/SENNA 8.6 MG TAB PO SCH (08:10)
[2016-09-08] MEDS: PROPOFOL 1000 MG/100 ML INJ 100 ML IV SCH ×2 (08:10→13:06)
[2016-09-08] MEDS: THIAMINE INJ 100 MG in SODIUM CHLORIDE 0.9% INJ 100 ML IV SCH (08:10)
[2016-09-08] MEDS: SEVELAMER CARBONATE 800 MG TAB PO SCH ×3 (08:11→15:42)
[2016-09-08] MEDS: MULTIVITAMINS/MINERALS THERAPEUTIC TAB OG-TUBE SCH (08:11)
[2016-09-08] MEDS: ASPIRIN 81 MG CHEW TAB CHEW SCH (08:11)
[2016-09-08] MEDS: RIFAXIMIN 550 MG TAB PO SCH (08:11)
[2016-09-08] MEDS: FOLIC ACID 1 MG TAB OG-TUBE SCH (08:11)
[2016-09-08] MEDS: ARTIFICIAL TEARS OPTH SOLN 15 ML BTL EACH EYE SCH ×3 (08:11→17:05)
[2016-09-08] MEDS: REMOVE OLD PATCH-NICOTINE T-DERMAL SCH (08:12)
[2016-09-08] MEDS: SODIUM CHLORIDE 0.9% FLUSH 10 ML FLUSH IV FLUSH SCH (08:12)
[2016-09-08] MEDS: NICOTINE 21 MG/24 HR PATCH T-DERMAL SCH (08:12)
[2016-09-08] MEDS: AZITHROMYCIN INJ 500 MG in SODIUM CHLOR 0.9% 250 ML INJ 250 ML IV SCH (08:12)
[2016-09-08] MEDS: SODIUM CHLORIDE 0.9% FLUSH 10 ML FLUSH IVF SCH (08:12)
[2016-09-08] MEDS: CHLORHEXIDINE 0.12% (ORAL KIT) 15 ML CUP MT SCH (08:13)
[2016-09-08] MEDS: busPIRone HCL 5 MG TAB PO SCH ×3 (08:14→17:05)
[2016-09-08] MEDS: PANTOPRAZOLE SODIUM 40 MG VIAL IV SCH (08:55)
--- NOTE | 2016-09-08 08:55 | HHI.NPPN ---
Subjective History of Present Illness 71-year-old with acute renal failure, atrial fibrillation Interval History Had dialysis yesterday, 4 liters removed. Had about 1 liter of urine in addition. Became hypotensive during dialysis. Notes were reviewed. Poor prognosis continues. Objective Data Data 09/07/16 09/08/16 19:00 07:00 Intake Total 1915 ml 808 ml Output Total 4000 ml 1100 ml Balance -2085 ml -292 ml Intake Oral 250 ml IV Total 1515 ml 474 ml Tube Feeding 300 ml 84 ml Tube Irrigant 100 ml Output Urine Total 0 ml 1100 ml Hemodialysis 4000 ml # Bowel Movements 0 Vital Signs Date Time Temp Pulse Resp B/P Pulse Ox O2 Delivery O2 Flow Rate FiO2 09/08/16 07:57 100 35 09/08/16 04:22 100 40 09/08/16 04:00 98.4 137 18 98/58 98 09/08/16 04:00 137 09/08/16 02:00 132 09/08/16 01:10 100 40 09/08/16 00:00 132 09/08/16 00:00 97.8 128 16 104/60 98 09/08/16 00:00 40 09/08/16 00:00 97.8 135 16 115/58 98 09/07/16 22:08 100 40 09/07/16 22:00 128 09/07/16 20:00 97.6 126 16 107/42 98 09/07/16 20:00 128 09/07/16 20:00 40 09/07/16 19:36 100 40 09/07/16 18:00 123 09/07/16 16:00 122 09/07/16 16:00 122 103/55 96/61 09/07/16 16:00 40 09/07/16 16:00 97.9 122 16 99/56 97 97/55 09/07/16 15:31 97 40 09/07/16 14:00 121 09/07/16 12:17 98 40 09/07/16 12:00 97.7 123 16 118/65 98 111/60 09/07/16 12:00 123 09/07/16 12:00 123 118/65 111/60 09/07/16 12:00 40 09/07/16 10:00 124 -: 09/07/16 0320 09/08/16 0450 Physical Exam General Appearance: Well Developed Neck Neck Exam: Neck Supple Pulmonary Resp Exam: Decreased Bases Cardiology CV Exam: Arrhythmia Gastrointestinal/Abdomen GI Exam: Distended GI Remarks firm Extremeties Extremities Exam: Moderate Edema, Dependent Edema Assessment/Plan Problem List: (1) Acute renal failure Plan: Dialysis as needed, prognosis is poor. Continue to monitor for signs of renal recovery. Avoid nephrotoxic agents. (2) Atrial flutter with rapid ventricular response Plan: Stable EF of 70% (3) Congestive heart failure Plan: Continue to monitor (4) COPD with exacerbation Plan: on Vent Plan patient has possible metastatic malignancy, has history of lung cancer, testicular cancer. Noted to have retroperitoneal masses. Possible portal vein thrombosis, possible lung mass. Taken all together, his outlook is dismal. Howard Ochoa MD Sep 08, 2016 08:55
[2016-09-08] MEDS ORDERED: HEPARIN-D5W INJ 250 ML IV SCH (12:00)
[2016-09-08] MEDS ORDERED: DILTIAZEM HCL 25 MG/5 ML VIAL IVP ONE (12:15)
--- NOTE | 2016-09-08 12:18 | HHI.CCPN ---
Subjective Remarks/Hospital Course Unable to obtain history from patient as he was intubated in the ED prior to admission. I attempted to call Jesse Veliz who is a friend listed as his next of kin contact but there was no answer. History obtained from EMR and discussion with Dr. Villavicencio. 71-year-old male with past medical history of COPD on home O2, hypertension, diabetes, history of paroxysmal atrial flutter on chronic anticoagulation with Eliquis, testicular cancer, hepatitis C, alcohol abuse who presented to [facility] emergency department via [facility] with severe respiratory distress. He indicated to the ED physician that he been feeling poorly for 2 days and had had a subjective fever. Reportedly sats were 94% at the scene. He was given albuterol treatment. C Pap was attempted but he was unable to tolerate. He was given Lasix 100 mg IV because he carried a history of CHF. He was severely dyspneic on arrival and was intubated for impending respiratory failure. He was in A. fib RVR with rate in the 120s. He has been administered Cardizem 20 mg IV total. Heart rate remains in the 120s. He received Duoneb x2 and Solumedrol 125 mg IV. He is in acute renal failure and acute hypercapnic respiratory failure Subjective 09/01: Patient hypotensive overnight requiring placement of central line for vasopressor support. Essentially anuric since 2 AM. Arousable and does follow commands on the ventilator. Potassium remains elevated and he received Kayexalate and sodium bicarbonate pushes overnight along with D50/insulin. Recheck at 10 AM. No peak T waves on monitor. 09/02 Patient is sedated with Diprivan, Fentanyl and intubated. Afebrile. On Neosyn 110mics, Vasopressin and Cardizem 5mg/hr. HD initiated yesterday with removal 1.5L. 09/03 Patient remains intubated and sedated with Diprivan and Fentanyl. Off Vasopressin, Neosyn down to 60 mics from 110. Renal function is improving with Cr: 3.99 from 4.39 09/04: Patient intubated, sedated, gets very agitated on sedation lowering. Remains on Ranjeet-Synephrine at 60 mcg/m. I'll start Precedex to facilitate ventilator weaning. WBC count worsening 09/05: Continues to remain severely encephalopathy. On sedation on lightening shows 100 and agonal breathing on the ventilator. Profoundly acidemic with CO2 retention on CPAP trial yesterday. No improvement in mental status. Requiring Ranjeet-Synephrine on and off 09/06 Patient is sedated with Diprivan, Fentanyl and intubated. On Neosyn 30 mics , s/p HD yesterday with removal 4L. Afebrile. 09/07: Remains encephalopathic, became hypotensive while getting HD and Ranjeet- synephrine was increased to 300 mcg/min to keep MAP> 65, Code status DNR now 09/08: Remains critically ill with guarded prognosis. Developed atrial flutter I have started him on Cardizem infusion. GI consulted for portal vein thrombosis. No intervention planned at this time. I will start him on IV heparin for possible portal vein thrombosis and atrial flutter. Patient remains on Ranjeet-Synephrine as well. Bedside ultrasound shows mild to moderate ascites-family has not consented for paracentesis yet Objective Vital Signs Date Time Temp Pulse Resp B/P Pulse Ox O2 Delivery O2 Flow Rate FiO2 09/08/16 11:14 99 35 09/08/16 08:00 137 85/63 103/53 09/08/16 04:00 98.4 18 Intake and Output 09/07/16 09/07/16 09/08/16 08:00 16:00 00:00 Intake Total 1077 ml 1915 ml 306 ml Output Total 25 ml 4000 ml 1100 ml Balance 1052 ml -2085 ml -794 ml Result Diagram: 09/07/16 0320 09/08/16 0450 Imaging Last Impressions Chest X-Ray 09/06/16 0600 Signed Impressions: Service Date/Time: Tuesday, September 06, 2016 04:31 - CONCLUSION: 1. Stable elevation of right hemidiaphragm with volume loss in the right hemithorax. 2. Bibasilar atelectatic changes. 3. Stable position of life support tubes. Johnson Cisneros MD Liver Ultrasound 09/02/16 0000 Signed Impressions: Service Date/Time: Friday, September 02, 2016 11:53 - CONCLUSION: Mild ascites. Nonvisualization of flow in the portal vein. Sivakumar Brush MD FACR Lower Extremity Ultrasound 09/01/16 0000 Signed Impressions: Service Date/Time: Thursday, September 01, 2016 16:09 - CONCLUSION: Nonocclusive thrombus in the left common femoral and greater saphenous veins. No DVT is seen on the right. Arash Chávez MD Head CT 09/01/16 Signed Impressions: Service Date/Time: Thursday, September 01, 2016 20:31 - CONCLUSION: No acute disease. Arash Chávez MD Chest CT 09/01/16 Signed Impressions: Service Date/Time: Thursday, September 01, 2016 20:35 - CONCLUSION: 1. Suspicious appearing mass in the left suprahilar region concerning for a primary lung malignancy. In addition there is very prominent adenopathy seen throughout the mediastinum and left hilar region all concerning for a neoplastic disease. 2. There are ill-defined masses seen around the kidneys bilaterally. At the time a read the CT of the abdomen I was unaware of the CT of the chest findings. The abnormality in the chest makes metastases responsible for the masses in the pararenal spaces more likely. Arash Chávez MD Abdomen/Pelvis CT 09/01/16 Signed Impressions: Service Date/Time: Thursday, September 01, 2016 20:35 - CONCLUSION: 1. Multiple retroperitoneal mass is seen around the kidneys bilaterally being more numerous and larger on the right. This appearance is quite unusual. Neoplastic processes from metastases may have this appearance but typically metastases would be seen elsewhere. Inflammatory change could have this appearance but the underlying kidneys appear grossly normal. These are of uncertain etiology. They are amenable to biopsy. 2. Focal area of thickening at the mid small bowel. An area of enteritis could have this appearance. An area of small bowel hemorrhage or infiltrating neoplasm cannot be excluded. 3. Mild ascites. 4. Avascular necrosis of the femoral head. Arash Chávez MD Renal Ultrasound 08/31/16 Signed Impressions: Service Date/Time: Wednesday, August 31, 2016 23:47 - CONCLUSION: Diffuse cortical thinning of both kidneys. Scattered ascites throughout the abdomen.. Olvin Guzman MD Objective Remarks GENERAL: 71-year-old male resting in bed sedated on the ventilator, on ranjeet-synephrine SKIN: Warm, dry, with no rash HEAD: Atraumatic. Normocephalic. EYES: Pupils equally round and reactive. No scleral icterus. No injection or drainage. ENT: No nasal bleeding or discharge. Orotracheally intubated. OG tube in place NECK: Trachea midline. No JVD appreciated. Obese. Right IJ CVL clean dry and intact CARDIOVASCULAR: Heart sounds due to body habitus. Tachycardic rhythm a flutter No murmurs, clicks, gallops or rubs appreciated. On maximum dose Ranjeet- Synephrine RESPIRATORY: Very distant breath sounds with poor air movement bilaterally. Positive expiratory wheeze, and coarse rhonchi GASTROINTESTINAL: Abdomen protuberant, soft, with some mild distension, no tenderness, no rebound or guarding. Bowel sounds present. Bedside ultrasound shows mild to moderate ascites MUSCULOSKELETAL: Extremities without clubbing, cyanosis. There is 1 + pitting pretibial edema. Bilateral anterior tibial scarring/hold NEUROLOGICAL: Intubated, sedated. On sedation hold shows agonal breathing. Spontaneously opens eyes, do not follow commands Date of Insertion: Sep 01, 2016 Line: Central Venous Catheter Side: Right Location: Internal, Jugular A/P Assessment and Plan NEURO/PSYCH: Severe metabolic encephalopathy Hepatic encephalopathy EtOH abuse/dependence - 6-8 drinks of hard liquor daily History of migraine headache On Diprivan and Fentanyl infusion for sedation and vent synchrony. Daily sedation vacation as beau, shows agonal breathing on sedation hold Goal of RASS -2. Hold BuSpar 5 tid for anxiety disorder Monitor for signs and symptoms of alcohol withdrawal/protocol initiated Thiamine 100 mg daily/folic acid 1 mg daily/multivitamin 1 tablet daily for EtOH abuse Ammonia level 166 last 09/06/16 recheck level am, on lactulose 30ml Q6, and Xifaxan. Rpt ammonia level today RESP: Acute hypercapnic respiratory failure Acute COPD exacerbation MAGO - not on CPAP Tobacco abuse/ongoing one half pack per day PRVC 16/tidal volume around 650/0.85/5/40- not tolerating SBT, continues to fail , further mental status will not permit extubation Ventilator bundle. DuoNeb every 4 hours. Albuterol every 2 hours as needed for wheezing. On Solucortef 100mg IV Q8. Pulmicort one inhalation twice a day 09/01 CT chest: Suspicious appearing mass in the left suprahilar region concerning for a primary lung malignancy. Prominent adenopathy seen throughout the mediastinum and left hilar region all concerning for a neoplastic disease. There are ill-defined masses seen around the kidneys bilaterally Pulm Dr. Garcia. No intervention at this time re left suprahilar mass per pulm. CV: Shock History of Hypertension Paroxysmal atrial fibrillation with RVR A flutter with RVR Chronic diastolic heart failure with preserved EF Developed atrial flutter today with RVR, initiated on Cardizem infusion after bolus Ranjeet-Synephrine increased to maximum dose of 300 mcg/m for severe hypotension and shock Amiodarone on hold for elevated LFT Echo showed EF 65%-70%, technically difficult study. Holding lisinopril 10 mg by mouth daily in light of acute kidney injury GI: Probable portal vein thrombosis Mild to moderate ascites History of hepatitis C unknown treatment status GERD Elevated LFT's Continue tube feeds- Nepro with goal rate 40ml/hr US liver: Mild-mod ascites. Nonvisualization of flow in the portal vein-start anticoagulation with IV heparin Hyperammonemia. On lactulose and Xifaxan. GI consulted Dr. manzano following Protonix for GI prophylaxis Lizz-Colace for bowel regimen Monitor LFT's FEN/RENAL: Acute kidney injury - baseline creatinine around 0.9 07/17 Renal ultrasound revealed diffuse cortical thickening without hydronephrosis. Monitor renal function, I/O's, avoid nephrotoxins. s/p HD 09/07 with 4L removed ID: Sepsis White count worsening, repeat pancultures check C. 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 Leukocytosis Normocytic anemia NOAC use Monitor CBC daily. Follow trends Coags within normal limits. Bronch/biopsy only if there is clinical improvement ENDO: DM Low-dose insulin sliding scale every 4 hours TSH: 2.77 Access - Right IJ CVL placed 09/01 Prophylaxis - GI - Protonix - DVT - SCD. Palliative care is consulted to asses with goals of care, now patient is ALT CODE, intubation only CCT 40 mins Patient remains critically ill now with worsening encephalopathy, and worsening shock currently on maximum dose of Ranjeet-Synephrine. Now with worsening sepsis and new atrial flutter. His ammonia level pending. GI consulted for Probable probable portal vein thrombosis. Prognosis guarded Dixon Antoine MD Sep 08, 2016 12:18
[2016-09-08] MEDS: VASOPRESSIN INJ 40 UNITS in DEXTROSE 5% IN WATER 100ML INJ 98 ML IV SCH ×2 (12:39)
[2016-09-08] MEDS ORDERED: VANCOMYCIN INJ 1,850 MG in SODIUM CHLORID 0.9% 500 ML INJ 500 ML IV ONE (13:00)
[2016-09-08] MEDS ORDERED: DILTIAZEM INJ 125 MG in SODIUM CHLORIDE 0.9% INJ 100 ML IV SCH (13:00)
[2016-09-08 13:08] LABS: HEMATOCRIT 31.5 % (39.0-51.0); MEAN CELL VOLUME 92.2 FL (80.0-100.0); MEAN CORPUSCULAR HEMOGLOBIN 28.6 PG (27.0-34.0); PLATELET COUNT 198 TH/MM3 (150-450); RED BLOOD COUNT 3.41 MIL/MM3 (4.50-5.90); RED CELL DISTRIBUTION WIDTH 17.3 % (11.6-17.2); WHITE BLOOD COUNT 29.4 TH/MM3 (4.0-11.0)
[2016-09-08 13:11] LABS: REVIEW FLAG FINAL
[2016-09-08 13:15] LABS: APTT (PATIENT) 36.3 SEC (24.3-30.1); INTERNATIONAL NORMALIZED RATIO 1.7 RATIO; PROTHROMBIN TIME - PATIENT 19.4 SEC (9.8-11.6)
--- NOTE | 2016-09-08 15:15 | HHI.GIFU ---
Subjective Remarks Pt critically ill on vent Pt had HD yesterday with removal of 4L but was hypotensive Pt is on pressors Developed A. fib RVR today, on Cardizem (Funmilayo Root) Objective Vitals I&O Vital Signs Date Time Temp Pulse Resp B/P Pulse Ox O2 Delivery O2 Flow Rate FiO2 09/08/16 12:00 35 09/08/16 11:14 99 35 09/08/16 08:00 137 85/63 103/53 09/08/16 08:00 35 09/08/16 07:57 100 35 09/08/16 04:22 100 40 09/08/16 04:00 98.4 137 18 98/58 98 09/08/16 04:00 137 09/08/16 02:00 132 09/08/16 01:10 100 40 09/08/16 00:00 132 09/08/16 00:00 97.8 128 16 104/60 98 09/08/16 00:00 40 09/08/16 00:00 97.8 135 16 115/58 98 09/07/16 22:08 100 40 09/07/16 22:00 128 09/07/16 20:00 97.6 126 16 107/42 98 09/07/16 20:00 128 09/07/16 20:00 40 09/07/16 19:36 100 40 09/07/16 18:00 123 09/07/16 16:00 122 09/07/16 16:00 122 103/55 96/61 09/07/16 16:00 40 09/07/16 16:00 97.9 122 16 99/56 97 97/55 09/07/16 15:31 97 40 I/O 09/07/16 09/07/16 09/07/16 09/08/16 09/08/16 09/08/16 07:00 15:00 23:00 07:00 15:00 23:00 Intake Total 1077 ml 1915 ml 306 ml 502 ml Output Total 25 ml 4000 ml 1100 ml 0 ml Balance 1052 ml -2085 ml -794 ml 502 ml Intake Oral 250 ml IV Total 868 ml 1515 ml 56 ml 418 ml Tube Feeding 149 ml 300 ml 84 ml Tube Irrigant 100 ml Other 60 ml Output Urine Total 25 ml 0 ml 1100 ml 0 ml Hemodialysis 4000 ml # Bowel Movements 0 0 Laboratory Laboratory Tests Test 09/08/16 09/08/16 09/08/16 04:50 12:00 12:25 Sodium Level 137 Potassium Level 4.3 Chloride Level 101 Carbon Dioxide Level 20.7 Anion Gap 15 Blood Urea Nitrogen 76 Creatinine 3.82 Estimat Glomerular Filtration 16 Rate Random Glucose 161 Calcium Level 9.0 Total Bilirubin 1.8 Aspartate Amino Transf 454 (AST/SGOT) Alanine Aminotransferase 247 (ALT/SGPT) Alkaline Phosphatase 168 Total Protein 5.7 Albumin 3.5 Ammonia 118 White Blood Count 29.4 Red Blood Count 3.41 Hemoglobin 9.8 Hematocrit 31.5 Mean Corpuscular Volume 92.2 Mean Corpuscular Hemoglobin 28.6 Mean Corpuscular Hemoglobin 31.0 Concent Red Cell Distribution Width 17.3 Platelet Count 198 Mean Platelet Volume 8.4 Prothrombin Time 19.4 Prothromb Time International 1.7 Ratio Activated Partial 36.3 Thromboplast Time Imaging Last Impressions Chest X-Ray 09/08/16 0600 Signed Impressions: Service Date/Time: Thursday, September 08, 2016 04:35 - CONCLUSION: Minimal bibasilar subsegmental atelectasis. Cale Zepeda MD Liver Ultrasound 09/02/16 0000 Signed Impressions: Service Date/Time: Friday, September 02, 2016 11:53 - CONCLUSION: Mild ascites. Nonvisualization of flow in the portal vein. Sivakumar Brush MD FACR Lower Extremity Ultrasound 09/01/16 0000 Signed Impressions: Service Date/Time: Thursday, September 01, 2016 16:09 - CONCLUSION: Nonocclusive thrombus in the left common femoral and greater saphenous veins. No DVT is seen on the right. Aarsh Chávez MD Head CT 09/01/16 0000 Signed Impressions: Service Date/Time: Thursday, September 01, 2016 20:31 - CONCLUSION: No acute disease. Arash Chávez MD Chest CT 09/01/16 0000 Signed Impressions: Service Date/Time: Thursday, September 01, 2016 20:35 - CONCLUSION: 1. Suspicious appearing mass in the left suprahilar region concerning for a primary lung malignancy. In addition there is very prominent adenopathy seen throughout the mediastinum and left hilar region all concerning for a neoplastic disease. 2. There are ill-defined masses seen around the kidneys bilaterally. At the time a read the CT of the abdomen I was unaware of the CT of the chest findings. The abnormality in the chest makes metastases responsible for the masses in the pararenal spaces more likely. Arash Chávez MD Abdomen/Pelvis CT 09/01/16 0000 Signed Impressions: Service Date/Time: Thursday, September 01, 2016 20:35 - CONCLUSION: 1. Multiple retroperitoneal mass is seen around the kidneys bilaterally being more numerous and larger on the right. This appearance is quite unusual. Neoplastic processes from metastases may have this appearance but typically metastases would be seen elsewhere. Inflammatory change could have this appearance but the underlying kidneys appear grossly normal. These are of uncertain etiology. They are amenable to biopsy. 2. Focal area of thickening at the mid small bowel. An area of enteritis could have this appearance. An area of small bowel hemorrhage or infiltrating neoplasm cannot be excluded. 3. Mild ascites. 4. Avascular necrosis of the femoral head. Arash Chávez MD Renal Ultrasound 08/31/16 0000 Signed Impressions: Service Date/Time: Wednesday, August 31, 2016 23:47 - CONCLUSION: Diffuse cortical thinning of both kidneys. Scattered ascites throughout the abdomen.. Olvin Guzman MD Physical Exam HEENT: Normocephalic; atraumatic;OETT in place CHEST: Coarse breath sounds bilaterally CARDIAC: Tachy ABDOMEN: Semi-firm, distended, nontender; EXTREMITIES: Generalized edema. 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 Pt has had some noted elevated LFTs progressively worsening since admission. Liver US (09/02/16) --> Mild ascites. Nonvisualization of flow in the portal vein. Pt has reported hx of Hepatitis C but serology was negative for hepatitis C antibodies and viral load. Pt does have hx alcohol abuse (6-8 drinks per day) and labs seem to be more consistent with this. Thiamine/folic acid/multivitamin daily for EtOH abuse. Ammonia level 118 on . Lactulose 30ml Q6 and Xifaxan. - VDRF/COPD/MAGO. CT Chest (09/01) ---> Suspicious appearing mass in the left suprahilar region concerning for a primary lung malignancy. Prominent adenopathy seen throughout the mediastinum and left hilar region all concerning for a neoplastic disease. Pulmonary/CCM following. - A. fib with RVR. Pt was initiated on Cardizem infusion after bolus today. He is on Ranjeet-Synephrine for severe hypotension and shock - JAROCHO. Nephrology following. Renal ultrasound ---> diffuse cortical thickening without hydronephrosis. Pt s/p HD (09/07) with 4L removed. Monitor renal function, I/O's, avoid nephrotoxins. - Leukocytosis. White count worsening. Pt is on Abx (Cefepime, Zithromax, Flagyl ). BC from (08/31) NGTD. Sputum, urine cx (08/31) NGTD. - Hx of NSCLC and Hx of testicular cancer. Pt with suspicious appearing mass in the left suprahilar region concerning for a primary lung malignancy. CT Abd/pelvis (09/01) --> Multiple retroperitoneal mass is seen around the kidneys bilaterally being more numerous and larger on the right. This appearance is quite unusual. Neoplastic processes from metastases may have this appearance but typically metastases would be seen elsewhere. Inflammatory change could have this appearance but the underlying kidneys appear grossly normal. These are of uncertain etiology. They are amenable to biopsy. 2. Focal area of thickening at the mid small bowel. An area of enteritis could have this appearance. An area of small bowel hemorrhage or infiltrating neoplasm cannot be excluded. 3. Mild ascites. 4. Avascular necrosis of the femoral head. PLAN: - Agree with IV Heparin - Palliative care following, pt with poor overall prognosis. - CT images are concerning for possible malignancy, if pt stabilizes could consider biopsy of lung mass or retroperitoneal masses. - Cont. Lactulose - Cont. Xifaxan - Thiamine/Folic acid/MVI - Monitor ammonia level - Monitor LFTs - Supportive care - Further recommendations as the case develops - The pt was seen and examined by myself and Dr. Mary, this note was written on her behalf. (Funmilayo Root) Funmilayo Root Sep 08, 2016 15:15 Alejandra Mary MD Sep 08, 2016 15:37
--- NOTE | 2016-09-08 15:20 | PD.PROCEDR ---
Procedure Note Procedure Procedure Notes: Paracentesis for moderate Ascites, new sepsis r/o SBP Informed consent obtained from family A time-out was completed verifying correct patient, procedure, site, positioning , and special equipment if applicable. The patient's left LQ was prepped and draped in a sterile manner after the appropriate infiltration level was confirmed by ultrasound. 1% lidocaine was used anesthetize the skin and subcutaneous tissue. A 10-blade scalpel used to make the incision. The paracentesis Angio cath was then introduced without difficulty and needle was removed. Catheter was connected to Vacutainer bottle and 3100 ml (3.1L) of lite yellow ascitic fluid was removed. Estimated Blood Loss: <1 ml. The patient tolerated the procedure well and there were no immediate complications. Fluid send out for further studies Dixon Antoine MD Sep 08, 2016 15:20
--- NOTE | 2016-09-08 15:31 | HHI.PR ---
Subjective Remarks Remains critical ,On Multiple pressors. Sedated and on Vent support PC/AC , FIO2 40 %. CXR shows bilateral infiltrates. Objective Vital Signs Date Time Temp Pulse Resp B/P Pulse Ox O2 Delivery O2 Flow Rate FiO2 09/08/16 12:00 35 09/08/16 11:14 99 35 09/08/16 08:00 137 85/63 103/53 09/08/16 08:00 35 09/08/16 07:57 100 35 09/08/16 04:22 100 40 09/08/16 04:00 98.4 137 18 98/58 98 09/08/16 04:00 137 09/08/16 02:00 132 09/08/16 01:10 100 40 09/08/16 00:00 132 09/08/16 00:00 97.8 128 16 104/60 98 09/08/16 00:00 40 09/08/16 00:00 97.8 135 16 115/58 98 09/07/16 22:08 100 40 09/07/16 22:00 128 09/07/16 20:00 97.6 126 16 107/42 98 09/07/16 20:00 128 09/07/16 20:00 40 09/07/16 19:36 100 40 09/07/16 18:00 123 09/07/16 16:00 122 09/07/16 16:00 122 103/55 96/61 09/07/16 16:00 40 09/07/16 16:00 97.9 122 16 99/56 97 97/55 09/07/16 15:31 97 40 I/O 09/07/16 09/07/16 09/07/16 09/08/16 09/08/16 09/08/16 07:00 15:00 23:00 07:00 15:00 23:00 Intake Total 1077 ml 1915 ml 306 ml 502 ml Output Total 25 ml 4000 ml 1100 ml 0 ml Balance 1052 ml -2085 ml -794 ml 502 ml Intake Oral 250 ml IV Total 868 ml 1515 ml 56 ml 418 ml Tube Feeding 149 ml 300 ml 84 ml Tube Irrigant 100 ml Other 60 ml Output Urine Total 25 ml 0 ml 1100 ml 0 ml Hemodialysis 4000 ml # Bowel Movements 0 0 Result Diagram: 09/08/16 1225 09/08/16 0450 Objective Remarks GENERAL: A well-built, well-nourished male, sedated on the ventilator. HEENT EXAMINATION: Pupils are equal and reactive to light. Oral mucosa and nasal mucosa normal. NECK: Supple. JVP not raised. Chest: Equal bilaterally. Bilateral wheeze.Basal crackles. CV: S1 and S2 normal.No Murmur ABDOMEN: Soft, obese . Bowel sounds are present. EXTREMITIES: mild edema. Cool and dry. Neuro : sedated Assessment and Plan Assessment and Plan 1. Respiratory Failure. 2. Sepsis . 3. Encephalopathy. 4. COPD 5. H/O hypertension 6. Left suprahilar mass Plan : 1. Wean FIo2 to keep sat >92. 2. Cont antibiotics as ordered 3. Nebs qid , duoneb 4. Tube feeds at 50 CC 5. Paracentesis when family consents. 6. Continue Hydrocortisone 100 mg q8h 7. CBC,CXR,BMP in am Erwin Willson MD Sep 08, 2016 15:31
[2016-09-08] MEDS ORDERED: HEPARIN SODIUM - IV 10,000 UNITS/10 ML VIAL IV PRN ×2 (18:00)
[2016-09-08] MEDS: RESP: ALBUTEROL 2.5 MG/IPRATROPIUM 0.5 MG NEB (SCH) NEB (20:28)
[2016-09-08 21:00] LABS: PERITONEAL POLYS(SEGS) 88 %; PERITONEAL WBC 447 /MM3 (0-10)
[2016-09-08 21:01] LABS: PERITONEAL LYMPHS 5 %; PERITONEAL MESOTHELIAL 4 %; PERITONEAL MONOS 3 %
[2016-09-08 21:11] LABS: MEAN CORPUSCULAR HGB CONC 29.6 % (32.0-36.0)
[2016-09-08 22:02] LABS: APTT (PATIENT) GREATER THAN 277.5 SEC (24.3-30.1)
[2016-09-08 23:50] LABS: HEMATOCRIT 28.2 % (39.0-51.0); MEAN CELL VOLUME 94.1 FL (80.0-100.0); MEAN CORPUSCULAR HEMOGLOBIN 28.5 PG (27.0-34.0); MEAN CORPUSCULAR HGB CONC 30.3 % (32.0-36.0); PLATELET COUNT 163 TH/MM3 (150-450); RED BLOOD COUNT 2.99 MIL/MM3 (4.50-5.90); RED CELL DISTRIBUTION WIDTH 18.1 % (11.6-17.2); REVIEW FLAG FINAL; WHITE BLOOD COUNT 32.2 TH/MM3 (4.0-11.0)
[2016-09-09] VITALS (8 sets, daily range): BP systolic 120–121; BP diastolic 38–43; PULSE 67–75; RESP 0; TEMP 93.2–94.5; O2SAT 0–100
[2016-09-09] MEDS: INSULIN ASPART SUPPLEMENTAL SCALE SQ SCH (00:47)
[2016-09-09] MEDS: RESP: ALBUTEROL 2.5 MG/IPRATROPIUM 0.5 MG NEB (SCH) NEB ×3 (01:52→07:55)
[2016-09-09] MEDS: PROPOFOL 1000 MG/100 ML INJ 100 ML IV SCH (03:20)
[2016-09-09 05:33] LABS: HEMATOCRIT 27.5 % (39.0-51.0); MEAN CELL VOLUME 95.8 FL (80.0-100.0); MEAN CORPUSCULAR HEMOGLOBIN 28.4 PG (27.0-34.0); PLATELET COUNT 155 TH/MM3 (150-450); RED BLOOD COUNT 2.87 MIL/MM3 (4.50-5.90); RED CELL DISTRIBUTION WIDTH 17.9 % (11.6-17.2); WHITE BLOOD COUNT 31.4 TH/MM3 (4.0-11.0)
[2016-09-09 05:44] LABS: HEMO FLAGS AUTO DIFF
[2016-09-09 06:02] LABS: ALT (GPT) 591 U/L (12-78); ANION GAP 23 MEQ/L (5-15); BICARBONATE 13.3 MEQ/L (21.0-32.0); BLOOD UREA NITROGEN 77 MG/DL (7-18); CHLORIDE 98 MEQ/L (98-107); MAGNESIUM 2.5 MG/DL (1.5-2.5); POTASSIUM 6.2 MEQ/L (3.5-5.1); SODIUM (NA) 134 MEQ/L (136-145)
[2016-09-09 06:17] LABS: ALKALINE PHOSPHATASE 158 U/L (45-117); AST (GOT) 1566 U/L (15-37); TOTAL BILIRUBIN ADULT 2.2 MG/DL (0.2-1.0)
[2016-09-09 06:53] LABS: BANDS 3 % (0-6); CORRECTED NUCLEATED RBC 8 /100 WBC (0-0); METAMYELOCYTES 4 % (0-1); MYELOCYTES 7 % (0-0); NEUTROPHIL # MANUAL DIFF 29.2 TH/MM3 (1.8-7.7); POLYS (SEG NEUTROPHILS) 79 % (16-70); WBC DIFF SAMPLE 100
[2016-09-09 06:54] LABS: ACANTHOCYTES OCC (NORMAL); HOWELL-JOLLY BODIES PRESENT (NONE SEEN); POLYCHROMASIA 2.3 % (0.0-1.9)
[2016-09-09 06:56] LABS: SCAN/DIFF FINAL DIFF MANUAL
--- NOTE | 2016-09-09 07:15 | RADRPT ---
EXAM DATE/TIME: 09/09/2016 04:45 [facility] COMPARISON: CHEST SINGLE AP, September 08, 2016, 4:35. INDICATIONS : Shortness of breath, possible pulmonary disease. MEDICAL HISTORY : Chronic obstructive pulmonary disease. Hypertension Carcinoma, testicular. Hep C CHF SURGICAL HISTORY : Lobectomy. Orchiectomy Liver resection ENCOUNTER: Subsequent ACUITY: 1 week PAIN SCORE: Non-responsive. LOCATION: Bilateral chest FINDINGS: Supportive devices are in stable position. Lungs remain free of significant congestion or acute air space disease. Heart and mediastinal structures are stable. CONCLUSION: Stable chest without evidence of acute congestion or airspace disease. Stable support devices. Aston Sheriff MD on September 09, 2016 at 7:12 Board Certified Radiologist. This report was verified electronically.
[2016-09-09] MEDS: RESP: BUDESONIDE 0.5 MG/2 ML NEB NEB SCH (07:55)
[2016-09-09] MEDS ORDERED: SODIUM CHLORID 0.9% 500 ML INJ 500 ML IV ONE (08:30)
[2016-09-09] MEDS ORDERED: NOREPINEPHRINE INJ 4 MG in SODIUM CHLOR 0.9% 250 ML INJ 246 ML IV SCH (09:00)
[2016-09-09 09:06] LABS: APTT (PATIENT) GREATER THAN 277.5 SEC (24.3-30.1)
[2016-09-09 09:52] LABS: BLOOD GAS BASE EXCESS 0.9 mmol/L (-2-2); BLOOD GAS CARBOXYHEMOGLOBIN 1.2 % (0-4); BLOOD GAS HCO3 28 mmol/L (22-26); BLOOD GAS METHEMOGLOBIN 1.1 % (0-2); BLOOD GAS O2 HGB SATURATION 97 % (90-100); BLOOD GAS PCO2 65 mmHg (38-42); BLOOD GAS PO2 154 mmHg (61-120); TEMP CORR TO 98.6
[2016-09-09 09:54] LABS: CRITICAL VALUE YES; DRAW SITE ART LINE; FIO2 40 %; NUMBER OF ARTERIAL PUNCTURES 0; OXYGEN DEVICE VENTILATOR; STAT NO; ULNAR PULSE PRESENT; VENT SETTINGS PRVC/16/650/+8/0.9
--- NOTE | 2016-09-09 10:32 | HHI.CCPN ---
Subjective Remarks/Hospital Course Unable to obtain history from patient as he was intubated in the ED prior to admission. I attempted to call Jesse Veliz who is a friend listed as his next of kin contact but there was no answer. History obtained from EMR and discussion with Dr. Villavicencio. 71-year-old male with past medical history of COPD on home O2, hypertension, diabetes, history of paroxysmal atrial flutter on chronic anticoagulation with Eliquis, testicular cancer, hepatitis C, alcohol abuse who presented to [facility] emergency department via [facility] with severe respiratory distress. He indicated to the ED physician that he been feeling poorly for 2 days and had had a subjective fever. Reportedly sats were 94% at the scene. He was given albuterol treatment. C Pap was attempted but he was unable to tolerate. He was given Lasix 100 mg IV because he carried a history of CHF. He was severely dyspneic on arrival and was intubated for impending respiratory failure. He was in A. fib RVR with rate in the 120s. He has been administered Cardizem 20 mg IV total. Heart rate remains in the 120s. He received Duoneb x2 and Solumedrol 125 mg IV. He is in acute renal failure and acute hypercapnic respiratory failure Subjective 09/01: Patient hypotensive overnight requiring placement of central line for vasopressor support. Essentially anuric since 2 AM. Arousable and does follow commands on the ventilator. Potassium remains elevated and he received Kayexalate and sodium bicarbonate pushes overnight along with D50/insulin. Recheck at 10 AM. No peak T waves on monitor. 09/02 Patient is sedated with Diprivan, Fentanyl and intubated. Afebrile. On Neosyn 110mics, Vasopressin and Cardizem 5mg/hr. HD initiated yesterday with removal 1.5L. 09/03 Patient remains intubated and sedated with Diprivan and Fentanyl. Off Vasopressin, Neosyn down to 60 mics from 110. Renal function is improving with Cr: 3.99 from 4.39 09/04: Patient intubated, sedated, gets very agitated on sedation lowering. Remains on Ranjeet-Synephrine at 60 mcg/m. I'll start Precedex to facilitate ventilator weaning. WBC count worsening 09/05: Continues to remain severely encephalopathy. On sedation on lightening shows 100 and agonal breathing on the ventilator. Profoundly acidemic with CO2 retention on CPAP trial yesterday. No improvement in mental status. Requiring Ranjeet-Synephrine on and off 09/06 Patient is sedated with Diprivan, Fentanyl and intubated. On Neosyn 30 mics , s/p HD yesterday with removal 4L. Afebrile. 09/07: Remains encephalopathic, became hypotensive while getting HD and Ranjeet- synephrine was increased to 300 mcg/min to keep MAP> 65, Code status DNR now 09/08: Remains critically ill with guarded prognosis. Developed atrial flutter I have started him on Cardizem infusion. GI consulted for portal vein thrombosis. No intervention planned at this time. I will start him on IV heparin for possible portal vein thrombosis and atrial flutter. Patient remains on Ranjeet-Synephrine as well. Bedside ultrasound shows mild to moderate ascites-family has not consented for paracentesis yet 09/09 Patient is sedated with Diprivan, Fentanyl and intubated. On multiple pressors( Neosyn 180 mics, Levophed 12 mics, Vasopressin 0.04) in addition patient was on Cardizem drip 5mg/hr and Heparin drip overnight. Renal function is worsening with Cr: 4.81 from 3.82 hyperkalemia K 6.2 Objective Vital Signs Date Time Temp Pulse Resp B/P Pulse Ox O2 Delivery O2 Flow Rate FiO2 09/09/16 07:57 96 35 09/09/16 06:00 75 09/09/16 04:00 120/38 09/09/16 04:00 94.5 0 Intake and Output 09/08/16 09/08/16 09/09/16 08:00 16:00 00:00 Intake Total 502 ml 1679 ml 706 ml Output Total 0 ml 3100 ml 0 ml Balance 502 ml -1421 ml 706 ml Result Diagram: 09/09/16 0430 09/09/16 0430 Other Results Laboratory Tests Test 09/08/16 09/08/16 09/08/16 09/08/16 12:00 12:25 15:20 20:30 Ammonia 118 MCMOL/L White Blood Count 29.4 TH/MM3 Red Blood Count 3.41 MIL/MM3 Hemoglobin 9.8 GM/DL Hematocrit 31.5 % Mean Corpuscular Volume 92.2 FL Mean Corpuscular Hemoglobin 28.6 PG Mean Corpuscular Hemoglobin 31.0 % Concent Red Cell Distribution Width 17.3 % Platelet Count 198 TH/MM3 Mean Platelet Volume 8.4 FL Prothrombin Time 19.4 SEC Prothromb Time International 1.7 RATIO Ratio Activated Partial 36.3 SEC GREATER THAN Thromboplast Time 277.5 SEC Peritoneal Fluid WBC 447 /MM3 Peritoneal Fluid RBC 210 /MM3 Peritoneal Fluid Neutrophils 88 % Peritoneal Fluid Lymphocytes 5 % Peritoneal Fluid Monocytes 3 % Peritoneal Fluid Mesothelial 4 % Cells Peritoneal Fluid Comment Peritoneal Fluid Total Protein 0.6 GM/DL Peritoneal Fluid Albumin 0.3 G/DL Peritoneal Fluid LDH 126 U/L Peritoneal Fluid Glucose 146 MG/DL Test 09/08/16 09/09/16 09/09/16 09/09/16 23:30 04:30 06:45 07:05 White Blood Count 32.2 TH/MM3 31.4 TH/MM3 Red Blood Count 2.99 MIL/MM3 2.87 MIL/MM3 Hemoglobin 8.5 GM/DL 8.2 GM/DL Hematocrit 28.2 % 27.5 % Mean Corpuscular Volume 94.1 FL 95.8 FL Mean Corpuscular Hemoglobin 28.5 PG 28.4 PG Mean Corpuscular Hemoglobin 30.3 % 29.6 % Concent Red Cell Distribution Width 18.1 % 17.9 % Platelet Count 163 TH/MM3 155 TH/MM3 Mean Platelet Volume 8.4 FL 8.2 FL Neutrophils (%) (Auto) % Lymphocytes (%) (Auto) % Monocytes (%) (Auto) % Eosinophils (%) (Auto) % Basophils (%) (Auto) % Neutrophils # (Auto) TH/MM3 Lymphocytes # (Auto) TH/MM3 Monocytes # (Auto) TH/MM3 Eosinophils # (Auto) TH/MM3 Basophils # (Auto) TH/MM3 CBC Comment AUTO DIFF Differential Total Cells 100 Counted Neutrophils % (Manual) 79 % Band Neutrophils % 3 % Lymphocytes % 2 % Monocytes % 5 % Neutrophils # (Manual) 29.2 TH/MM3 Metamyelocytes 4 % Myelocytes 7 % Nucleated Red Blood Cells 8 /100 WBC Differential Comment FINAL DIFF MANUAL Polychromasia 2.3 % [place] Bodies PRESENT Acanthocytes OCC Sodium Level 134 MEQ/L Potassium Level 6.2 MEQ/L Chloride Level 98 MEQ/L Carbon Dioxide Level 13.3 MEQ/L Anion Gap 23 MEQ/L Blood Urea Nitrogen 77 MG/DL Creatinine 4.61 MG/DL Random Glucose 134 MG/DL Calcium Level 9.2 MG/DL Magnesium Level 2.5 MG/DL Total Bilirubin 2.2 MG/DL Aspartate Amino Transf 1566 U/L (AST/SGOT) Alanine Aminotransferase 591 U/L (ALT/SGPT) Alkaline Phosphatase 158 U/L Total Protein 4.8 GM/DL Albumin 3.0 GM/DL Activated Partial GREATER THAN Thromboplast Time 277.5 SEC Blood Gas Puncture Site ART LINE Blood Gas Patient Temperature 98.6 Blood Gas HCO3 28 mmol/L Blood Gas Base Excess 0.9 mmol/L Blood Gas Oxygen Saturation 97 % Arterial Blood pH 7.25 Arterial Blood Partial 65 mmHg Pressure CO2 Arterial Blood Partial 154 mmHg Pressure O2 Arterial Blood Oxygen Content 14.0 Vol % Arterial Blood 1.2 % Carboxyhemoglobin Arterial Blood Methemoglobin 1.1 % Blood Gas Hemoglobin 10.0 G/DL Oxygen Delivery Device VENTILATOR Blood Gas Ventilator Setting PRVC/16/650/+8/0.9 Blood Gas Inspired Oxygen 40 % Imaging Last Impressions Chest X-Ray 09/09/16 0600 Signed Impressions: Service Date/Time: Friday, September 09, 2016 04:45 - CONCLUSION: Stable chest without evidence of acute congestion or airspace disease. Stable support devices. Aston Sheriff MD Liver Ultrasound 09/02/16 0000 Signed Impressions: Service Date/Time: Friday, September 02, 2016 11:53 - CONCLUSION: Mild ascites. Nonvisualization of flow in the portal vein. Sivakumar Brush MD FACR Lower Extremity Ultrasound 09/01/16 0000 Signed Impressions: Service Date/Time: Thursday, September 01, 2016 16:09 - CONCLUSION: Nonocclusive thrombus in the left common femoral and greater saphenous veins. No DVT is seen on the right. Arash Chávez MD Head CT 09/01/16 0000 Signed Impressions: Service Date/Time: Thursday, September 01, 2016 20:31 - CONCLUSION: No acute disease. Arash Chávez MD Chest CT 09/01/16 0000 Signed Impressions: Service Date/Time: Thursday, September 01, 2016 20:35 - CONCLUSION: 1. Suspicious appearing mass in the left suprahilar region concerning for a primary lung malignancy. In addition there is very prominent adenopathy seen throughout the mediastinum and left hilar region all concerning for a neoplastic disease. 2. There are ill-defined masses seen around the kidneys bilaterally. At the time a read the CT of the abdomen I was unaware of the CT of the chest findings. The abnormality in the chest makes metastases responsible for the masses in the pararenal spaces more likely. Arash Chávez MD Abdomen/Pelvis CT 09/01/16 0000 Signed Impressions: Service Date/Time: Thursday, September 01, 2016 20:35 - CONCLUSION: 1. Multiple retroperitoneal mass is seen around the kidneys bilaterally being more numerous and larger on the right. This appearance is quite unusual. Neoplastic processes from metastases may have this appearance but typically metastases would be seen elsewhere. Inflammatory change could have this appearance but the underlying kidneys appear grossly normal. These are of uncertain etiology. They are amenable to biopsy. 2. Focal area of thickening at the mid small bowel. An area of enteritis could have this appearance. An area of small bowel hemorrhage or infiltrating neoplasm cannot be excluded. 3. Mild ascites. 4. Avascular necrosis of the femoral head. Arash Chávez MD Renal Ultrasound 08/31/16 0000 Signed Impressions: Service Date/Time: Wednesday, August 31, 2016 23:47 - CONCLUSION: Diffuse cortical thinning of both kidneys. Scattered ascites throughout the abdomen.. Olvin Guzman MD Objective Remarks GENERAL: 71-year-old male resting in bed sedated on the ventilator, on ranjeet-synephrine SKIN: Warm, dry, with no rash HEAD: Atraumatic. Normocephalic. EYES: Pupils equally round and reactive. No scleral icterus. No injection or drainage. ENT: No nasal bleeding or discharge. Orotracheally intubated. OG tube in place NECK: Trachea midline. No JVD appreciated. Obese. Right IJ CVL clean dry and intact CARDIOVASCULAR: Heart sounds due to body habitus. Tachycardic rhythm a flutter No murmurs, clicks, gallops or rubs appreciated. On maximum dose Ranjeet- Synephrine RESPIRATORY: Very distant breath sounds with poor air movement bilaterally. Positive expiratory wheeze, and coarse rhonchi GASTROINTESTINAL: Abdomen protuberant, soft, with some mild distension, no tenderness, no rebound or guarding. Bowel sounds present. Bedside ultrasound shows mild to moderate ascites MUSCULOSKELETAL: Extremities without clubbing, cyanosis. There is 1 + pitting pretibial edema. Bilateral anterior tibial scarring/hold NEUROLOGICAL: Intubated, sedated. On sedation hold shows agonal breathing. Spontaneously opens eyes, do not follow commands Date of Insertion: Sep 01, 2016 Line: Central Venous Catheter Side: Right Location: Internal, Jugular A/P Assessment and Plan NEURO/PSYCH: Severe metabolic encephalopathy Hepatic encephalopathy EtOH abuse/dependence - 6-8 drinks of hard liquor daily History of migraine headache On Diprivan and Fentanyl infusion for sedation and vent synchrony. Daily sedation vacation as beau, shows agonal breathing on sedation hold Goal of RASS -2. Hold BuSpar 5 tid for anxiety disorder Monitor for signs and symptoms of alcohol withdrawal/protocol initiated Thiamine 100 mg daily/folic acid 1 mg daily/multivitamin 1 tablet daily for EtOH abuse on lactulose 30ml Q6, and Xifaxan. RESP: Acute hypercapnic respiratory failure Acute COPD exacerbation MAGO - not on CPAP Tobacco abuse/ongoing one half pack per day PRVC 16/tidal volume around 650/0.85/5/35- Ventilator bundle. DuoNeb every 4 hours. Albuterol every 2 hours as needed for wheezing. On Solucortef 100mg IV Q8. Pulmicort one inhalation twice a day 09/01 CT chest: Suspicious appearing mass in the left suprahilar region concerning for a primary lung malignancy. Prominent adenopathy seen throughout the mediastinum and left hilar region all concerning for a neoplastic disease. There are ill-defined masses seen around the kidneys bilaterally Pulm Dr. Garcia. No intervention at this time re left suprahilar mass per pulm. CV: Shock History of Hypertension Paroxysmal atrial fibrillation with RVR A flutter with RVR Chronic diastolic heart failure with preserved EF On Multiple pressors ( Neosy, Levophed, Vasopressin) to keep MAP>65mmHg d/c Cardizem drip Amiodarone on hold for elevated LFT Echo showed EF 65%-70%, technically difficult study. Holding lisinopril 10 mg by mouth daily in light of acute kidney injury GI: Probable portal vein thrombosis Mild to moderate ascites History of hepatitis C unknown treatment status GERD Elevated LFT's Continue tube feeds- Nepro with goal rate 40ml/hr US liver: mod ascites. Nonvisualization of flow in the portal vein-On anticoagulation with IV heparin s/p bedside paracentesis yesterday with removal 3.1L 09/08 Hyperammonemia. On lactulose and Xifaxan. GI consulted Dr. manzano following Protonix for GI prophylaxis Lizz-Colace for bowel regimen Monitor LFT's FEN/RENAL: Acute kidney injury - baseline creatinine around 0.9 07/17 Hyperkalemia Renal ultrasound revealed diffuse cortical thickening without hydronephrosis. Monitor renal function, I/O's, avoid nephrotoxins. Treat hyperkalemia with IV insulin, D50, Sodium bicarb, Kayexalate and Calcium s/p HD 09/07 with 4L removed ID: Sepsis White count worsening, Continue with ABX ( Cefepime, Zithromax, Flagyl) monitor for signs of infections ( Fever, WBC) Nasal aspirate negative for Influenza on 09/01 BC from 08/31: NGTD Sputum, urine cx: 08/31: NGTD BC from 09/08: NGTD HEME/ONC: History of non-small cell carcinoma status post right lower lobe lobectomy History of testicular cancer status post right orchiectomy Suspicious appearing mass in the left suprahilar region concerning for a primary lung malignancy. Leukocytosis Normocytic anemia NOAC use Monitor CBC daily. Follow trends Coags within normal limits. Bronch/biopsy only if there is clinical improvement ENDO: DM Low-dose insulin sliding scale every 4 hours TSH: 2.77 Access - Right IJ CVL placed 09/01 Prophylaxis - GI - Protonix - DVT - SCD. Palliative care is following- For possible withdrawal care today Patient is ALT CODE, intubation only CCT 30 mins Patient remains critically ill now with worsening encephalopathy, and worsening shock on multiple pressors and multiorgan injury. Prognosis guarded. Desi Navarro MD Sep 09, 2016 10:32
[2016-09-09] MEDS ORDERED: SODIUM POLYSTYRENE SULFONATE SUSP 15 GM/60 ML CUP PO ONE (11:00)
[2016-09-09] MEDS ORDERED: DEXTROSE 50% IN WATER 50 ML SYRINGE IV ONE (11:00)
[2016-09-09] MEDS ORDERED: SODIUM BICARBONATE 8.4% INJ 50 MEQ/50 ML SYR IV PUSH ONE (11:00)
[2016-09-09] MEDS ORDERED: INSULIN HUMAN REGULAR 1,000 UNITS/10 ML VIAL IV PUSH ONE (11:00)
--- NOTE | 2016-09-09 11:09 | HHI.HCPN ---
Reason for visit a. To assist with evaluation and management of symptoms including: Shortness of breath, pain and debility. b. To assist medical decision maker(s) with: better understanding of current medical conditions; weighing benefits/burdens of medical treatment options; making medical treatment decisions. . Subjective/Interval History Patient's clinical condition worsened over the weekend. Currently on Levophed, vasopressin and Ranjeet-Synephrine in addition to Cardizem drip secondary to A. fib with RVR. Patient currently on septic shock, multisystem organ failure and worsening encephalopathy. Underwent paracenteses on 09/08/16, 3.1 of ascites fluid removed. Patient remains orally intubated on mechanical ventilation. Leukocytosis trending up, WBC 31.4 today, Hgb 8.2, platelet count 155. Sodium 144, potassium 6.2, BUN/creatinine 77/4.61. Ammonia remains elevated, 118 today. Worsening liver enzymes. Bilirubin 2.2, AST 1566, ALT 591, alkaline phosphatase 158. Dr. Mary consulted on 09/07/16 for evaluation of possible portal vein thrombosis. Patient was placed on heparin drip overnight. Very poor prognosis. Patient was seen in his room earlier today. He was intubated on mechanical ventilation, unresponsive to verbal or tactile stimuli. Patient hypothermic with temperature 94.5, bradycardic with heart rate in the mid 20s. Patient's friends Lauren and Susanna who is patient's former roommate at the bedside. Online Editor Tim was called at the bedside as per friends request. Case discussed with Dr. Navarro and bedside RN Isabel. . Family/friend interactions Telephone conversation with patient's son Sivakumar Elliott, separate telephone conversation with patient's sister Rhonda Elliott. They report that they came to visit patient yesterday. Both son and sister made aware of patient's worsening clinical condition. Reviewed events over the weekend to include worsening liver function, septic shock requiring multiple pressors, worsening encephalopathy, worsening leukocytosis. Reviewed patient's very poor prognosis for survival, patient is actively dying at this time. They both verbalized understanding. Active listening and ongoing emotional support provided, all questions were answered in great detail. . Advance Directives Health Care Surrogate: Completed, but not made available Advance Directive Specifics Date completed: Pending copy. Health Care Surrogate(s): Patient reported on 05/21/16 that her sister Rhonda Armentas if HCS. Sister confirmed this information, she will bring copy of designation of healthcare surrogate. . Documented care wishes: Pending copy of living will. . Significant change in goals: Alternate code/intubation only. Objective Vital Signs Date Time Temp Pulse Resp B/P Pulse Ox O2 Delivery O2 Flow Rate FiO2 09/09/16 07:57 96 35 09/09/16 06:00 75 09/09/16 04:21 100 35 09/09/16 04:00 35 09/09/16 04:00 75 120/38 09/09/16 04:00 94.5 75 0 120/38 99 09/09/16 04:00 75 09/09/16 02:00 69 09/09/16 01:53 100 35 09/09/16 00:00 67 09/09/16 00:00 93.2 67 0 121/43 100 09/09/16 00:00 35 09/09/16 00:00 67 121/43 09/08/16 22:00 122 09/08/16 20:29 98 35 09/08/16 20:00 09/08/16 20:00 35 09/08/16 20:00 124 09/08/16 20:00 123 16 107/40 98 09/08/16 18:00 124 09/08/16 18:00 124 16 111/49 97 09/08/16 17:00 127 16 103/50 95 119/60 09/08/16 16:00 35 09/08/16 16:00 121 09/08/16 16:00 97.9 121 16 99/50 96 104/45 09/08/16 15:39 98 35 09/08/16 15:00 129 21 88/46 96 106/57 09/08/16 14:00 129 8 100/74 98 111/58 09/08/16 14:00 129 09/08/16 13:00 132 14 106/62 98 113/59 09/08/16 12:00 97.4 132 13 100/56 99 98/56 09/08/16 12:00 35 09/08/16 12:00 132 09/08/16 11:14 99 35 09/08/16 11:00 130 15 99/65 98 98/54 Intake & Output 09/09/16 09/09/16 07:00 19:00 Intake Total 2271 ml Output Total 0 ml Balance 2271 ml IV Total 1736 ml Tube Feeding 535 ml Output Urine Total 0 ml # Bowel Movements 0 Physical Exam CONSTITUTIONAL/GENERAL: This is an obese male currently intubated on mechanical ventilation. TUBES/LINES/DRAINS: ETT, OG, right IJ CVL, PIV's, Aaron catheter, SCDs, soft wrist restraints. SKIN: No jaundice, rashes, or lesions. Ecchymoses on upper extremities. No wounds seen anteriorly. Ashen skin color. HEAD: Atraumatic. Normocephalic. EYES: Pupils sluggish. No scleral icterus. No injection or drainage. ENT: Unable to evaluate hearing secondary to clinical condition. Nose without bleeding or purulent drainage. Moist oral mucosa. NECK: Trachea midline. Supple. CARDIOVASCULAR: Bradycardia with heart rate in the mid 20s. Pitting edema to all 4 extremities. RESPIRATORY/CHEST: Symmetric, orally intubated on mechanical ventilation. Coarse breath sounds. GASTROINTESTINAL: Abdomen obese, large, round. Hypoactive bowel sounds. Unable to appreciate hepatomegaly secondary to body habitus. GENITOURINARY: Without palpable bladder distension. Aaron catheter in place. MUSCULOSKELETAL: Extremities without clubbing. Pitting edema to all 4 extremities. NEUROLOGICAL: Unresponsive to verbal or tactile stimuli. Not following commands. PSYCHIATRIC: Unable to evaluate secondary to clinical condition. . Diagnostic Tests Laboratory Laboratory Tests Test 09/06/16 09/07/16 09/08/16 09/08/16 15:20 03:20 04:50 12:00 Ammonia 166 MCMOL/L 118 MCMOL/L (11-32) (11-32) White Blood Count 21.5 TH/MM3 (4.0-11.0) Red Blood Count 3.31 MIL/MM3 (4.50-5.90) Hemoglobin 9.3 GM/DL (13.0-17.0) Hematocrit 30.0 % (39.0-51.0) Mean Corpuscular Volume 90.5 FL (80.0-100.0) Mean Corpuscular Hemoglobin 28.2 PG (27.0-34.0) Mean Corpuscular Hemoglobin 31.2 % Concent (32.0-36.0) Red Cell Distribution Width 17.1 % (11.6-17.2) Platelet Count 173 TH/MM3 (150-450) Mean Platelet Volume 8.0 FL (7.0-11.0) Neutrophils (%) (Auto) 90.3 % (16.0-70.0) Lymphocytes (%) (Auto) 1.6 % (9.0-44.0) Monocytes (%) (Auto) 8.0 % (0.0-8.0) Eosinophils (%) (Auto) 0.0 % (0.0-4.0) Basophils (%) (Auto) 0.1 % (0.0-2.0) Neutrophils # (Auto) 19.4 TH/MM3 (1.8-7.7) Lymphocytes # (Auto) 0.3 TH/MM3 (1.0-4.8) Monocytes # (Auto) 1.7 TH/MM3 (0-0.9) Eosinophils # (Auto) 0.0 TH/MM3 (0-0.4) Basophils # (Auto) 0.0 TH/MM3 (0-0.2) CBC Comment AUTO DIFF Differential Total Cells 100 Counted Neutrophils % (Manual) 93 % (16-70) Band Neutrophils % 2 % (0-6) Lymphocytes % 2 % (9-44) Monocytes % 2 % (0-8) Neutrophils # (Manual) 20.6 TH/MM3 (1.8-7.7) Metamyelocytes 1 % (0-1) Nucleated Red Blood Cells 2 /100 WBC (0-0) Differential Comment FINAL DIFF MANUAL Platelet Estimate NORMAL (NORMAL) Platelet Morphology Comment NORMAL (NORMAL) Red Cell Morphology Comment NORMAL (NORMAL) Sodium Level 141 MEQ/L 137 MEQ/L (136-145) (136-145) Potassium Level 4.8 MEQ/L 4.3 MEQ/L (3.5-5.1) (3.5-5.1) Chloride Level 105 MEQ/L 101 MEQ/L (98-107) (98-107) Carbon Dioxide Level 24.1 MEQ/L 20.7 MEQ/L (21.0-32.0) (21.0-32.0) Anion Gap 12 MEQ/L (5-15) 15 MEQ/L (5-15) Blood Urea Nitrogen 80 MG/DL (7-18) 76 MG/DL (7-18) Creatinine 3.80 MG/DL 3.82 MG/DL (0.60-1.30) (0.60-1.30) Estimat Glomerular Filtration 16 ML/MIN (>89) 16 ML/MIN (>89) Rate Random Glucose 93 MG/DL 161 MG/DL (74-106) (74-106) Calcium Level 9.0 MG/DL 9.0 MG/DL (8.5-10.1) (8.5-10.1) Total Bilirubin 1.0 MG/DL 1.8 MG/DL (0.2-1.0) (0.2-1.0) Aspartate Amino Transf 335 U/L (15-37) 454 U/L (15-37) (AST/SGOT) Alanine Aminotransferase 179 U/L (12-78) 247 U/L (12-78) (ALT/SGPT) Alkaline Phosphatase 127 U/L 168 U/L (45-117) (45-117) Total Protein 5.7 GM/DL 5.7 GM/DL (6.4-8.2) (6.4-8.2) Albumin 3.3 GM/DL 3.5 GM/DL (3.4-5.0) (3.4-5.0) Test 09/08/16 09/08/16 09/08/16 09/08/16 12:25 15:20 20:30 23:30 White Blood Count 29.4 TH/MM3 32.2 TH/MM3 (4.0-11.0) (4.0-11.0) Red Blood Count 3.41 MIL/MM3 2.99 MIL/MM3 (4.50-5.90) (4.50-5.90) Hemoglobin 9.8 GM/DL 8.5 GM/DL (13.0-17.0) (13.0-17.0) Hematocrit 31.5 % 28.2 % (39.0-51.0) (39.0-51.0) Mean Corpuscular Volume 92.2 FL 94.1 FL (80.0-100.0) (80.0-100.0) Mean Corpuscular Hemoglobin 28.6 PG 28.5 PG (27.0-34.0) (27.0-34.0) Mean Corpuscular Hemoglobin 31.0 % 30.3 % Concent (32.0-36.0) (32.0-36.0) Red Cell Distribution Width 17.3 % 18.1 % (11.6-17.2) (11.6-17.2) Platelet Count 198 TH/MM3 163 TH/MM3 (150-450) (150-450) Mean Platelet Volume 8.4 FL 8.4 FL (7.0-11.0) (7.0-11.0) Prothrombin Time 19.4 SEC (9.8-11.6) Prothromb Time International 1.7 RATIO Ratio Activated Partial 36.3 SEC GREATER THAN Thromboplast Time (24.3-30.1) 277.5 SEC (24.3-30.1) Peritoneal Fluid WBC 447 /MM3 (0-10) Peritoneal Fluid RBC 210 /MM3 (0-0) Peritoneal Fluid Neutrophils 88 % Peritoneal Fluid Lymphocytes 5 % Peritoneal Fluid Monocytes 3 % Peritoneal Fluid Mesothelial 4 % Cells Peritoneal Fluid Comment Peritoneal Fluid Total Protein 0.6 GM/DL Peritoneal Fluid Albumin 0.3 G/DL Peritoneal Fluid LDH 126 U/L Peritoneal Fluid Glucose 146 MG/DL Test 09/09/16 09/09/16 09/09/16 04:30 06:45 07:05 White Blood Count 31.4 TH/MM3 (4.0-11.0) Red Blood Count 2.87 MIL/MM3 (4.50-5.90) Hemoglobin 8.2 GM/DL (13.0-17.0) Hematocrit 27.5 % (39.0-51.0) Mean Corpuscular Volume 95.8 FL (80.0-100.0) Mean Corpuscular Hemoglobin 28.4 PG (27.0-34.0) Mean Corpuscular Hemoglobin 29.6 % Concent (32.0-36.0) Red Cell Distribution Width 17.9 % (11.6-17.2) Platelet Count 155 TH/MM3 (150-450) Mean Platelet Volume 8.2 FL (7.0-11.0) Neutrophils (%) (Auto) % (16.0-70.0) Lymphocytes (%) (Auto) % (9.0-44.0) Monocytes (%) (Auto) % (0.0-8.0) Eosinophils (%) (Auto) % (0.0-4.0) Basophils (%) (Auto) % (0.0-2.0) Neutrophils # (Auto) TH/MM3 (1.8-7.7) Lymphocytes # (Auto) TH/MM3 (1.0-4.8) Monocytes # (Auto) TH/MM3 (0-0.9) Eosinophils # (Auto) TH/MM3 (0-0.4) Basophils # (Auto) TH/MM3 (0-0.2) CBC Comment AUTO DIFF Differential Total Cells 100 Counted Neutrophils % (Manual) 79 % (16-70) Band Neutrophils % 3 % (0-6) Lymphocytes % 2 % (9-44) Monocytes % 5 % (0-8) Neutrophils # (Manual) 29.2 TH/MM3 (1.8-7.7) Metamyelocytes 4 % (0-1) Myelocytes 7 % (0-0) Nucleated Red Blood Cells 8 /100 WBC (0-0) Differential Comment FINAL DIFF MANUAL Polychromasia 2.3 % (0.0-1.9) [place] Bodies PRESENT (NONE SEEN) Acanthocytes OCC (NORMAL) Sodium Level 134 MEQ/L (136-145) Potassium Level 6.2 MEQ/L (3.5-5.1) Chloride Level 98 MEQ/L (98-107) Carbon Dioxide Level 13.3 MEQ/L (21.0-32.0) Anion Gap 23 MEQ/L (5-15) Blood Urea Nitrogen 77 MG/DL (7-18) Creatinine 4.61 MG/DL (0.60-1.30) Random Glucose 134 MG/DL (74-106) Calcium Level 9.2 MG/DL (8.5-10.1) Magnesium Level 2.5 MG/DL (1.5-2.5) Total Bilirubin 2.2 MG/DL (0.2-1.0) Aspartate Amino Transf 1566 U/L (AST/SGOT) (15-37) Alanine Aminotransferase 591 U/L (12-78) (ALT/SGPT) Alkaline Phosphatase 158 U/L (45-117) Total Protein 4.8 GM/DL (6.4-8.2) Albumin 3.0 GM/DL (3.4-5.0) Activated Partial GREATER THAN Thromboplast Time 277.5 SEC (24.3-30.1) Blood Gas Puncture Site ART LINE Blood Gas Patient Temperature 98.6 Blood Gas HCO3 28 mmol/L (22-26) Blood Gas Base Excess 0.9 mmol/L (-2-2) Blood Gas Oxygen Saturation 97 % (90-100) Arterial Blood pH 7.25 (7.380-7.420) Arterial Blood Partial 65 mmHg (38-42) Pressure CO2 Arterial Blood Partial 154 mmHg Pressure O2 (61-120) Arterial Blood Oxygen Content 14.0 Vol % (12.0-20.0) Arterial Blood 1.2 % (0-4) Carboxyhemoglobin Arterial Blood Methemoglobin 1.1 % (0-2) Blood Gas Hemoglobin 10.0 G/DL (12.0-16.0) Oxygen Delivery Device VENTILATOR Blood Gas Ventilator Setting PRVC/16/650/+8/0.9 Blood Gas Inspired Oxygen 40 % Result Diagram: 09/09/1642909/09/16429 Microbiology Microbiology Date/Time Procedure Status Source Growth 09/08/16 15:20 Gram Stain - Final Resulted Fluid Peritoneal Fluid 09/08/16 15:20 Body Fluid Culture Resulted Fluid Peritoneal Fluid Pending 09/08/16 21:40 Aerobic Blood Culture Received Blood Other Pending 09/08/16 21:40 Anaerobic Blood Culture Received Blood Other Pending 09/08/16 21:49 Aerobic Blood Culture Received Blood Other Pending 09/08/16 21:49 Anaerobic Blood Culture Received Blood Other Pending Imaging Last 48 hours Impressions Chest X-Ray 09/09/16 06 Signed Impressions: Service Date/Time: Friday, September 09, 2016 04:45 - CONCLUSION: Stable chest without evidence of acute congestion or airspace disease. Stable support devices. Aston Sheriff MD Chest X-Ray 09/08/16 06 Signed Impressions: Service Date/Time: Thursday, September 08, 2016 04:35 - CONCLUSION: Minimal bibasilar subsegmental atelectasis. Cale eZpeda MD Procedures * 09/08/16 -paracentesis * 09/01/16 -right IJ hemodialysis catheter. * 09/01/16 -right IJ CVL * 08/31/16 -intubated and placed on mechanical ventilation . Assessment and Plan Disease Oriented Problem List: (1) Respiratory failure, acute (2) Acute renal failure (3) Atrial flutter with rapid ventricular response (4) Hypotension Symptom Scale: (1) Pain 0-10 Scale: Unable to quantify Comment: Currently on fentanyl drip. (2) Shortness of breath 0-10 Scale: Unable to quantify Comment: Secondary to acute respiratory failure. Remains intubated on mechanical ventilation. (3) Debility 0-10 Scale: Unable to quantify Comment: Secondary to acute on chronic illness. Pertinent Non-Medical Issues Psychosocial: Originally from [place]. for 35 years, now . One biological son. Spiritual: [employer]. Legal: Pending copy of advance directives. Ethical issues impacting care: Pending copy of advance directives. . Important Contacts Sister/HCS Rhonda Elliott Sivakumar Elliott . Prognosis Mr. Elliott is a 71-year-old male with a medical history significant for O2 dependent COPD , non-small cell carcinoma status post right lobectomy, testicular cancer status post orchiectomy, diabetes mellitus type 2, hypertension, atrial fibrillation/atrial flutter on anticoagulation, CHF and EtOH use and abuse. Clinical condition complicated by multisystem organ failure , patient requiring hemodialysis, unable to wean off ventilator support. Patient's overall prognosis is poor given his multiple comorbidities, likely recurrence or metastatic cancer as per CT scans and acute events. Patient at a very high risk for further complications, continue decline and . . Code Status: Alternative Code Plan * CODE STATUS: Alternate code/intubation only at this time. Both patient's sister Rhonda Elliott (reported as HCS) and pt's only son Sivakumar Elliott in agreement with changing code status to no cardiac code. * HEALTHCARE DECISION-MAKER: Patient unable to participate in medical decision- making secondary to clinical condition, unresponsive on mechanical ventilation. Patient reported on prior admission 05/21/16 that her sister Rhonda Elliott is HCS. This has been confirmed with sister, pending copy of healthcare surrogate designation. In the meantime, palliative care recommends shared decision- making with patient's only son Sivakumar Elliott. * GOALS OF CARE: 09/09/16 -Patient's son Sivakumar and patient's sister Rhonda aware of pt's worsening clinical condition, patient actively dying. Family electing NOT to escalate care with the understanding that patient's prognosis is very poor. Code status to remain alt/intubation only. Confirmed NO cardiac code. * SYMPTOMS: = Pain, secondary to acute illness, intubation, mechanical ventilation, etc. Currently on fentanyl drip. Appears comfortable. = Shortness of breath, remains intubated on mechanical ventilation. = Debility: Secondary to acute on chronic illness. Likely to worsen. * Case has been discussed with Dr. Navarro and bedside RN Isabel. * Spiritual services offered and accepted, chaplain White called at bedside. * Palliative care contact information has been provided to family. * Ongoing emotional support and active listening provided to family. . Time Spent Total Floor Time (mins): 42 (Total time to include review medical records, physical exam, 2 separate telephone conversations with son and patient's sister , case discussion with doyle White, Dr. Navarro and bedside RN.) >50% Counseling/Coord of Care: Yes Attestation To help prompt me to consider important information that might be impacting today's encounter and assessment, information from prior notes written by myself or my colleagues may have been "brought forward" into today's note. My signature on this note, however, is an attestation that I personally performed the exam, history, and/or decision-making noted today, and, unless otherwise indicated, the interactions with patient, family, and staff as well as the review of records all occurred today. I also attest that the listed assessment and stated plan reflect my best clinical judgment today based on the combination of historical information, prior notes, and today's exam/ interactions. When time spent is documented, it refers only to time spent today by the signer, or if indicated, combined time spent today by collaborating physician/nurse practitioner. Sangita Mcfarland Sep 09, 2016 11:09
[2016-09-09] MEDS ORDERED: CALCIUM GLUCONATE INJ 1 GM in SODIUM CHLORIDE 0.9% INJ 100 ML IV ONE (12:00)
--- NOTE | 2016-09-09 13:59 | EKG ---
Date Performed: 09/08/2016 Time Performed: 07:09:36 PTAGE: 71 years EKG: Possible atrial flutter with rapid ventricular response. Generalized low QRS voltages Abnor mal ECG Compared to PREVIOUS TRACING , voltage has diminished somewhat. Right bundle branch block and rate swartz s improved. PREVIOUS TRACING 08/31/2016 18.28.44 DOCTOR: Vargas Lane Interpretating Date/Time 09/09/2016 13:58:00
== END 2016-09-09 10:38 | disposition expired | DRG 207 ==
LOC: NEPC 17:59 → NEDA 21:23 → NEDH 09-01 00:44 → HIMN 09-01 02:05
PROVIDERS: ADMIT Emergency Medicine; ATTEND Emergency Medicine
PROC: 0BH17EZ Insertion of Endotracheal Airway into Trachea, Via Natural or Artificial Opening (ICD-10-PCS; principal; 2016-08-31)
PROC: 5A1955Z Respiratory Ventilation, Greater than 96 Consecutive Hours (ICD-10-PCS; 2016-08-31)
PROC: 0T9B70Z Drainage of Bladder with Drainage Device, Via Natural or Artificial Opening (ICD-10-PCS; 2016-08-31)
PROC: 04HY32Z Insertion of Monitoring Device into Lower Artery, Percutaneous Approach (ICD-10-PCS; 2016-09-01)
PROC: 02HV33Z Insertion of Infusion Device into Superior Vena Cava, Percutaneous Approach (ICD-10-PCS; 2016-09-01)
PROC: 05HM33Z Insertion of Infusion Device into Right Internal Jugular Vein, Percutaneous Approach (ICD-10-PCS; 2016-09-01)
PROC: 5A1D60Z (ICD-10-PCS; 2016-09-01)
PROC: 0W9G3ZZ Drainage of Peritoneal Cavity, Percutaneous Approach (ICD-10-PCS; 2016-09-08)
DX: J44.1 Chronic obstructive pulmonary disease with (acute) exacerbation (principal); J96.02 Acute respiratory failure with hypercapnia; R65.21 Severe sepsis with septic shock; I81 Portal vein thrombosis; A41.9 Sepsis, unspecified organism; G93.41 Metabolic encephalopathy; N17.9 Acute kidney failure, unspecified; I95.3 Hypotension of hemodialysis; I11.0 Hypertensive heart disease with heart failure; E87.2 Acidosis; I48.92 Unspecified atrial flutter; I50.32 Chronic diastolic (congestive) heart failure; R18.8 Other ascites; E87.1 Hypo-osmolality and hyponatremia; M87.9 Osteonecrosis, unspecified; I48.0 Paroxysmal atrial fibrillation; E86.0 Dehydration; G43.909 Migraine, unspecified, not intractable, without status migrainosus; Z99.81 Dependence on supplemental oxygen; E83.41 Hypermagnesemia; Z90.2 Acquired absence of lung [part of]; B19.20 Unspecified viral hepatitis C without hepatic coma; E66.9 Obesity, unspecified; I45.10 Unspecified right bundle-branch block; M19.90 Unspecified osteoarthritis, unspecified site; Z85.47 Personal history of malignant neoplasm of testis; Z90.79 Acquired absence of other genital organ(s); Z79.01 Long term (current) use of anticoagulants; F10.10 Alcohol abuse, uncomplicated; K21.9 Gastro-esophageal reflux disease without esophagitis; Z85.118 Personal history of other malignant neoplasm of bronchus and lung; Z92.21 Personal history of antineoplastic chemotherapy; G47.33 Obstructive sleep apnea (adult) (pediatric); F17.210 Nicotine dependence, cigarettes, uncomplicated; F41.9 Anxiety disorder, unspecified; E87.5 Hyperkalemia; E83.39 Other disorders of phosphorus metabolism; E11.9 Type 2 diabetes mellitus without complications; Z79.02 Long term (current) use of antithrombotics/antiplatelets; R59.9 Enlarged lymph nodes, unspecified; R45.1 Restlessness and agitation; R00.0 Tachycardia, unspecified; Z51.5 Encounter for palliative care; D64.9 Anemia, unspecified; I25.2 Old myocardial infarction; K72.90 Hepatic failure, unspecified without coma; Z66 Do not resuscitate; R19.00 Intra-abdominal and pelvic swelling, mass and lump, unspecified site
CPT/HCPCS: 31500; 36556; 36600; 51702; 70450; 71010; 71250; 74176; 76705; 76775; 76937; 80048; 80053; 80074; 80307; 81001; 82042; 82140; 82150; 82533; 82550; 82552; 82570; 82805; 82945; 82948; 83605; 83615; 83735; 83880; 83930; 83935; 84100; 84157; 84300; 84443; 84484; 85007; 85014; 85018; 85025; 85027; 85610; 85730; 86403; 87040; 87070; 87086; 87205; 87522; 87641; 87804; 87902; 88112; 89051; 90935; 93005; 93308; 93970; 94002; 94003; 94640; 94664; 96365; 96366; 96374; 96375; C9113; J0456; J0696; J1580; J1644; J1720; J1815; J1956; J2150; J2250; J2370; J2930; J3010; J3370; J3411; J7030; J7040; J7050; J7060; J7613; J7626; P9047; Q9963